=== PATIENT | female | born 1940 | race Caucasian/White ===

== ENCOUNTER 2024-05-30 10:26 | Emergency (ER) | payer MEDICARE, SELFPAY ==
[2024-05-30] VITALS (7 sets, daily range): BP systolic 116–122; BP diastolic 70–78; PULSE 88–100; RESP 19–24; TEMP 36.6; O2SAT 93–94
--- NOTE | ~2024-05-30 | CT_ITS ---
CT head without contrast Indication: Status post fall COMPARISON: 04/26/2024 Technique: Serial scans were obtained through the brain without the administration of contrast. Dose reduction technique was used on this scan by utilizing automated exposure control and iterative recon struction technique. The dose-length product (DLP) was 681.00 mGy-cm. Findings: There is no evidence of intracranial hemorrhage, mass lesion, or acute infarct. The ventri cles and subarachnoid spaces are dilated, consistent with mild to moderate atrophy. There are stable chronic right frontal lobe encephalomalacia with overlying right frontal craniotomy change. Low atten uation regions are seen within the periventricular white matter bilaterally, likely representing nickerson ges from chronic microvascular ischemic disease. There is no evidence of edema, mass effect or midli ne shift. The visualized paranasal sinuses and mastoid air cells are clear. Impression: No intracranial hemorrhage, mass, or acute infarct. 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 Atrophy and chronic white matter changes, as above. Reviewed, dictated and finalized at location . Impression: No intracranial hemorrhage, mass, or acute infarct. 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 Atrophy and chronic white matter changes, as above.
--- NOTE | ~2024-05-30 | XR_ITS ---
Clinical Indication: Pneumonia PA and lateral views of the chest: Comparison: None Findings: The lungs are clear, without evidence of focal consolidation or pleural effusion. Cardiome diastinal silhouette is enlarged. Bones and soft tissues are unremarkable. Impression: Clear lungs. Cardiomegaly. Reviewed, dictated and finalized at location . Impression: Clear lungs. Cardiomegaly.
--- OUTSIDE RECORDS SUMMARY | 2024-05-30 10:29 | XMS_ITS | Encounter Summary ---
Author Organization [facility] Address [address] [place] [address] Care Team Providers Care Restaurant Delivery Driver Name Role Phone Jose Norton MD Primary Care Provider [phone] Encounter Details Date Type Department Care Team (Late st Contact Info) Description 05/13/2024 Abstract [facility], [address] [place], [place] [id number] Robe Mendoza MA Social History Tobacco Use Types Packs/Day Years Used Date Smoking Tobacco: Former Cigarettes Q uit: 1974 Passive Smoke Exposure: Past Smokeless Tobacco: Never Alcohol Use Standard Drinks/Week Comments Yes 16.7 (1 standard drink = 0.6 oz pure alcohol) Comments Unknown Sex and Gender Information Value Date Recorded Sex Assigned at Not on file Legal Sex Female 5:49 PM CDT Gender Identity Not on file Sexual Orientation Not on file documented as of this encounter Plan of Treatment Upcoming Encounters Date Type Department Care Team (Late st Contact Info) Description 08/24/2024 1:00 PM CDT Office Visit [facility] - [address], [address] [place] [phone] Monet Beltran MD [address] [place] [address] 09/03/2024 12:00 PM CDT Office Visit [facility] [address] Sadie Villaesnor MD [facility] [address] [place] [address] documented as of this encounter Procedures Procedure Name Priority Date/Time Associated Diagnosis Comments BASIC METABOLIC PANEL Routine 05/12/2024 documented in this encounter Results * BASIC METABOLIC PANEL (05/12/2024) SODIUM S/P/B 142 POTASSIUM S/P/B 4.2 CO2 26 CHLORIDE S/P/B 105 GLUCOSE 127 mg/dL CALCIUM S/P/B 9.1 BUN 8 CREATININE S/P/B 0.52 0.5 - 1.0 GFR ESTIMATE 93 05/12/2024 us Default History Genericprovider LABORATORY Final Result documented in this encounter Visit Diagnoses Not on filedocumented in this encounter Care Teams Restaurant Delivery Driver Relationship Specialty Start Date End Date Jose Norton MD [address] [place], [place] [id number] PCP - General FAMILY PRACTICE 02/13/24 documented as of this encounter
--- OUTSIDE RECORDS SUMMARY | 2024-05-30 10:29 | XMS_ITS | Data Portability ---
Author Organization [place] [facility], Main Office Address [address] [place] [address] [address] [place] [address] Assessment No assessment recorded. Plan of Treatment Reminders Order Date Submit Date Provider Last Modified By Organization Details Last Modified Time Details Appointments None record ed. Lab None record ed. Referral None record ed. Procedures None record ed. Surgeries None record ed. Imaging None record ed. Medication Orders None record ed. Patient TargetsNo targets recorded. Patient InstructionsNo instructions recorded. Reason for Referral None Reported. Results Created Date Observation Date Name Description Value Unit Range Abnormal Flag Note LastModifiedBy Organization Detail LastModifiedTime 05/30/19 24 06/03/2023 STREP TOCOC CUS, GROUP B CULTU RE streptococcu s, group B culture SEE NOTE STREP TOCOC CUS, GROUP B CULTU RE Micro Numbe r: Test Statu s: Final Speci men Sourc e: Vagin a Speci men Quali ty: Adequ ate Resul t: No group B Strep tococ cus isola lucas Note per CDC guide lines optim al recov elida is achie frederic by swabb ing both the lower vagin a and rectu m (thro ugh the anal sphin cter) . Not Available [facility] [address], [place], [address], 06/03/2023 01:50:29 05/30/1906/03/2023 SURES WAB(R ) ADV BACTE RIAL VAGIN OSIS (BV), TMA sureswab(R) adv bacterial vaginosis (bv), tma NEGATI VE negati ve normal Not Available [facility] [address], [place], [address], 06/03/2023 02:09:02 05/30/19 24 06/03/2023 SURES WAB(R ) ADV [place] DA VAGIN ITIS (CV), TMA alfredo species NOT DETECT ED not detect ed normal Not Available [facility] [address], [place], [address], 06/03/2023 02:09:03 05/30/19 24 06/03/2023 SURES WAB(R ) ADV M[place]ISON DA VAGIN ITIS (CV), TMA alfredo glabrata NOT DETECT ED not detect ed normal Madison da speci es C. albic ans, C. tropi calis , C. parap luís is, and/o r C. dubli niens is can be detec lucas, but not diffe renti ated, in the [place] da spp. resul t. Not Available [facility] [address], [place], [address], 06/03/2023 02:09:03 05/30/19 24 06/03/2023 CULTU RE, URINE , ROUTI NE culture, urine, routine SEE NOTE CULTU RE, URINE , ROUTI NE Micro Numbe r: Test Statu s: Final Speci men Sourc e: Voide d Speci men Quali ty: Adequ ate Resul t: Mixed genit al trisha isola lucas. These super ficia l bacte tonie are not indic ative of a urina ry tract infec tion. No furth er organ ism ident ifica tion is warra nted on this speci men. If clini jennifer indic ated, recol lect clean -catc h, mid-s tream urine and trans lashell immed iatel y to Urine Cultu re Trans port Tube. Not Available [facility] [address], [place], [address], 06/03/2023 02:13:30 05/30/19 24 05/30/2023 LIQUI D-BAS ED pdf [facility]CF Not Available [facility] [address], [place], [address], 06/05/2023 18:34:22 06/17/19 24 06/17/2023 PATHO LOGY pdf [facility] Not Available [facility] [address], [place], [address], 06/22/2023 18:11:11 06/13/19 24 06/05/2023 US, pelvi s, trans abdom inal + trans vagin al No observ ation record ed. BARCODE Not Available 2023 11:32:16 Result Notes None recorded. Procedures Surgical History None recorded. Imaging Results Imaging Date Name Status LastModified by Organization Details LastModified Time 06/05/2023 US, pelvis, transabdominal + transvaginal completed BARCODE Information not available 06/13/2023 11:32:16 Procedure Notes None recorded. Medical Equipment None Reported. Medications Name Sig Start Date Stop Date Status Note LastModified by Organization Details LastModified Time Macrobid 100 mg capsule Take 1 capsule twice a day by oral route for 3 days. 024 active Not Available Not Available Not Avai lable clobetasol 0.05 % topical ointment APPLY TO VULVA AREAS UP TO 2 TIMES A DAY FOR ITCHING AND THEN TAPER TO 1-2 TIMES A WEEK. 024 active Not Available Not Available Not Avai lable Vitals None Recorded Social History None recorded. Functional Status None recorded. Mental Status None recorded. Family History Nothing Reported. Medical History No medical history recorded. Gynecological HistoryNo gynecological history recorded. Obstetrics History GPAL:G 0 P 0 0 0 0 Past Encounters Encounter ID Performer Location Encounter Start Date Encounter Closed Date Diagnosis/Indication Diagnosis SNOMED-CT Code Diagnosis ICD10 Code Diagnosis Note [id number] Main [address] [facility] [employer] [address] [place] [address] 05/30/2023 14:31:48 07/09/2023 10:21:30 [id number] [facility] [facility] [address] [place] [address] 06/17/2023 09:59:46 06/17/2023 12:49:35 [id number] Main Office [address] [place], [place] [address] [place] [address] 07/15/2023 13:36:49 07/15/2023 14:44:17 Health Concerns Section Related Observation LastModified by Organization Detai ls LastModified Time None Recorded Concern Status LastModified by Organization Details LastModified Time None Recorded Advance Directives Directive None Recorded Payers Encounter Date Sequence Insurance Name Policy Number Policy Schilling Covered Member ID Schilling Member ID Guarantor Name 05/30/2023 2 [employer] OPTIONS (MEDICARE SUPPLEMENT) Silvana Villanueva Payam [id number] Silvana Payam 05/30/2023 1 [place] Silvana F Payam [id number] Silvana Payam 06/17/2023 2 [employer] OPTIONS (MEDICARE SUPPLEMENT) Silvana Villanueva Payam [id number] Silvana Payam 06/17/2023 1 [place] Silvana F Payam [id number] Silvana Payam 07/15/2023 2 [employer] OPTIONS (MEDICARE SUPPLEMENT) Silvana Villanueva Payam [id number] Silvana Payam 07/15/2023 1 [place] Silvana F Payam [id number] Silvana Payam OBGyn Episode No OBEpisode recorded.
--- OUTSIDE RECORDS SUMMARY | 2024-05-30 10:29 | XMS_ITS | Patient Health Record ---
Author Organization [facility] Address [address] [facility] [place] [address] Care Team Providers Care Automotive Engineering Technician Name Role Phone PetronaAdriano Unavailable [phone] doctor, Dr madrigal Unavailable Unavailable Reason For Referral No Information Medications Medication SIG (Take, Route, Frequency, Duration) Notes Start Date End Date Status losartan 25 mg 1 tab(s) orally once a day for 30 day(s) Active simvastatin 20 mg 1 tab(s) orally once a day (at bedtime) for 30 day(s) Active PARoxetine 30 mg 1 tab(s) orally once a day for 30 day(s) Active Claritin 10 mg 1 tab(s) orally once a day Active potassium 90mg 1 qd Activ e levothyroxine 25 mcg (0.025 mg) 1 tab(s) orally once a day for 30 day(s) Active esomeprazole 40 mg 1 cap(s) orally once a day for 30 day(s) Active furosemide 20 mg 1 tab(s) orally once a day for 30 day(s) Active lamoTRIgine 100 mg 1 tab(s) orally 2 ti mes a day for 30 day(s) Active Vit D 500iu oral BID for 30 days Active primidone 50 mg 1 tab(s) orally 3 ti mes a day for 30 day(s) Active Social History Tobacco Use: Social History Observation Description Date Details (start date - stop date) Never Smoker NA - NA Smoking Question Answer Notes Are you a: never smoker Alcohol Question Answer Notes Did you have a drink contain ing alcohol in the past year? Yes How often did you have six o r more drinks on one occasion in the past year? Daily or almost daily (4 points) How many drinks did you have on a typical day when you were drinking in the past year? 3 or 4 (1 point) How often did you have a dri nk containing alcohol in the past year? Four or more times a week (4 points) Points 9 Interpretation Positive Problems Problem Type SNOMED Code ICD Code Onset Dates Problem Status W/U Status Risk Notes Problem Stiffness of joint of left foot (finding) (604133813126307) Stiffness of left foot, not elsewhere classified (M25.675) Active confirmed Problem Instability of joint of left foot (finding) (22635460968880968) Other instability, left foot (M25.375) Active confirmed Problem Enthesopathy of foot region (076219795) Other enthesopathy of left foot (M77.52) Active confirmed Problem Metatarsalgia of left foot (673348653325351) Metatarsalgia, left foot (M77.42) Active confirmed Problem Atherosclerosis of samish arteries of the extremities (839853002067373) Unspecified atherosclerosis of samish arteries of extremities, bilateral legs (I70.203) Active confirmed Problem 1340961765713454 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, 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) Active confirmed Problem Stiffness of joint of right foot (finding) (165418202479465) Stiffness of right foot, not elsewhere classified (M25.674) Active confirmed Problem Peripheral venous insufficiency (16235343) Venous insufficiency (chronic) (peripheral) (I87.2) Active confirmed Problem Pain in limb (80766946) Pain of left foot (M79.672) Active confirmed Problem Arthralgia of the ankle and/or foot (403903045) Pain in joint, ankle and foot, left (M25.572) Active confirmed Plan Of Treatment Pending Test Test Name Order Date X-ray: Foot, left 3v OBTAINED TODAY 01/22 X-ray: Foot, right 3v OBTAINED TODAY 12/2019 Ultrasound guided injection left 020 Biopsy of Skin 02/01/2020 DRAIN/INJECT, JOINT/BURSA W/O US 020 Ultrasound:DX Capsulitis/Joint Pain Lt A nkle 02/01/2020 Ultrasound:DX Capsulitis/Joint Pain Lt F oot 02/01/2020 VASCULAR ANALYSIS 02/22/2020 Insurance Providers Payer Name Payer Address Payer Phone Subscriber Number Group Number Insured Name Patient Relationship to Insured Coverage Start Date Coverage End Date Medicare Part B [address] [place] [phone] [id number] Silvana Hare Self - patient is the insured 8 AARP Supplement [address] [facility] [place] [address] [id number] Silvana Hare Self - patient is the insured Medical (General) History Medical History History ICD Code Alzheimers disease No diabetic No Heart disease No Heart murmur No Mitral valve prolapse Yes Hypertension Yes Peripheral vascular disease No Stroke No Raynauds syndrome No Menieres disease No Dialysis No Phlebitis No Venous insufficiency No Respiratory disease No Parkinsons disease No Hepatitis No Fibromyalgia No RSD No Crohns Disease No Hiatal hernia No Colitis No Cirrhosis No thyroid problems No Liver Disease No Carpal tunnel No Neuropathy Yes Cancer No Pancreatitis No Multiple sclerosis No Hypercholestrolemia No Osteomyelitis No Sciatica No Arthritis Yes fractures No hip replacement No Knee Replacement Yes Surgical History Surgery Date(Month/Year) 2 bunion sx 2009 sinus surgery 2015 brain 2018 various elective sx [id number] Hospitalization History Reason Date(Month/Year) see above
--- OUTSIDE RECORDS SUMMARY | 2024-05-30 10:29 | XMS_ITS | Data Portability ---
Author Organization [place] [facility], [facility] - OP Address [address] [place] [address] Care Team Providers Care Cuff Setter Name Role Phone DEBI MATOS Primary Care Provider Assessment No assessment recorded. Plan of Treatment Reminders Order Date Submit Date Provider Last Modified By Organization Details Last Modified Time Details Appointments None recorded . Lab None recorded . Referral physical therapis t referral - Left Plantar fasciiti s/ gait training / balance, eval and treat please. To begin 2 weeks after june 24 due to surgery 2022 023 [email or web address] In-House Results, For Internal Use Only, Do Not Delete/merge, [id number] 13:50:00 home health referral - [facility] referral for home PTDx: Abnormal GAIT, Right knee arthropl asty, Left foot DJD, pain in limbGAIT training , safety/a ssessmen t, DME teaching , educatio n.Start 2 weeks 3x/week and will reassess at follow-u p visit in 2 weeks.SO C: 10/05 or Emir knowles, LEONORA AACFASAO [facility] ip-Train ed Foot and Ankle SurgeonA O/AAFAO Core FacultyO ffice: [phone] le: [phone]-charleen il: [email or web address] 2014 015 louie [facility], [address], [address], [place], [address], 5 08:43:53 Procedures None recorded . Surgeries None recorded . Imaging XR, foot, 3 or more view 03/20/ 2023 03/20/2 023 [email or web address] In-House Results, For Internal Use Only, Do Not Delete/merge, [id number] 3 12:05:27 x-ray, foot, 3 views 2014 015 [email or web address] In-House Results, For Internal Use Only, Do Not Delete/merge, [id number] 5 18:48:02 Medication Orders None recorded . Patient TargetsNo targets recorded. Patient Instructions Encounter Date Encounter Id Patient Instructions Last Modified By Organization Details Last Modified Time 10/04/2014 [id number] Corticosteroid injection. Discussed operative option of arthrodesis to the great toe joint. F/U with me in 2 weeks for re-evaluation. [facility] referral for balance issues. [email or web address] Not available 10/04/2014 18:45:02 06/10/2022 [id number] heel pain instructions Not available 06/10/2022 17:26:14 heel pain: care instructions Not available 06/10/2022 17:26:14 hammertoe, claw toe, mallet toe handout Not available 06/10/2022 17:26:14 -{{A 1:1:1* An 8 mg}} injection was administered into the {{RT LT* B/L}} PF, which was tolerated well by the patient. -A PT referral was sent for the patient -Dispensed {{a RT a LT* B/L}} night splint. -Addressed all of the patient's questions and concerns. Not available 06/10/2022 21:01:50 07/08/2022 [id number] -Dressed the lesion with betadine and a band-aid. -Advised to continue to WBAT in supportive shoes, attend PT, complete the HEP, and wear the night splint. -Recommended urea cream for keratoderma prophylaxis. -Addressed all of the patient's questions and concerns. Not available 07/08/2022 15:35:21 Reason for Referral Home Health Referral for Abn ormal gait [facility] referral for home PTDx: Abnormal GAIT, Right knee arthroplasty, Left foot DJD, pain in limbGAIT training, safety/assessment, DME teaching, education.Start 2 weeks 3x/week and will reassess at follow-up visit in 2 weeks.SOC: 10/05 or Emir galindo DPM AACFASAO Fellowship-Trained Foot and Ankle SurgeonGARRETT/HOOD Core FacultyOffice: [phone]: [phone]-mail: Referring Physician: Emir Curry Podiatry, Encounter Date: 10/04/2014 Physical Therapist Referral for Plantar fasciitis Left Plantar fasciitis/ gait training/ balance, eval and treat please. To begin 2 weeks after june 24 due to surgery Referring Physician: Narendra Hannon Podiatry, Encounter Date: 06/10/2022 Results Created Date Observation Date Name Description Value Unit Range Abnormal Flag Note LastModifiedBy Organization Detail LastModifiedTime 06/11/19 23 XR, foot, 3 or more view No observ ation record ed. In-House Results For Internal Use Only, Do Not Delete/merge, [id number] 06/10/2022 21:02:54 Result Notes None recorded. Problems Name Problem SNOMED Code Status Onset Date Resolution Date Notes Provider Name and Address Organization Details Recorded Time Tremor 79745815 Active 2022 Latesha Workman [facility] [place] 3 17:02:46 Acquired hallux rigidus 2249260 Active Emir Curry, DPM [address], [address] , [facility] 5 18:48:02 Sesamoiditis 44107589 Active Emir Curry DPDeonte [address], [address] , [facility] 5 18:48:02 Abnormal gait 78955549 Active Emir Curry, DPM [address], [address] , [facility] 5 18:48:02 Problem Notes None recorded. Procedures Surgical History Date Name Laterality Status Provider Name and Address Organization Details Recorded Time 07/09/19 23 Keratoma Debridement Size Lesion < 0.5CM completed Narendra Hannon, LEONORA [address] [place] [address], [phone], [facility] 07/08/2022 13:55:47 06/11/19 23 Injection Fascia/Tendon/l igament completed Narendra Hannon DPM [address] [place] [address], [phone], [facility] [place] 06/10/2022 17:20:10 06/11/19 23 Night Splint completed Narendra Hannon DPDeonte [address] [place] [address], [phone], [facility] [place] 06/10/2022 17:21:21 06/11/19 23 Keratoma Debridement Size Lesion < 0.5CM completed Narendra Hannon DPM [address] [place] [address], [phone], [facility] [place] 06/10/2022 17:20:51 10/05/19 15 Injection Small Joint/Bursae completed Emir Curry DPM [address] [place] [address], [phone], [facility] [place] 10/04/2014 18:45:02 Knee Surgery completed Mykel Swain [facility] [place] 10/04/2014 15:15:04 excision of bunion completed Latesha Workman [facility] [place] 06/10/2022 16:53:36 Imaging Results Imaging Date Name Status LastModified by Organiz ation Details LastModified Time 06/10/2022 XR, foot, 3 or more view completed [facility] In-House Results For Internal Use Only, Do Not Delete/merge, [id number] 06/10/2022 21:02:54 Procedure Notes None recorded. Medical Equipment None Reported. Allergies No known drug allergies Medications Name Sig Start Date Stop Date Status Note LastModified by Organization Details LastModified Time losartan 50 mg tablet TAKE 1 TABLET BY MOUTH EVERY DAY active Not Available Not Available No t Available celecoxib 200 mg capsule active Not Available Not Available Not Available fluoxetine 40 mg capsule TAKE 1 CAPSULE BY MOUTH EVERY DAY active Not Available Not Available No t Available amoxicillin 500 mg capsule active Not Available Not Available Not Available terconazole 0.4 % vaginal cream INSERT ONE APPLICATO RFUL VAGINALLY ONE TIME DAILY AT BEDTIME FOR 7 DAYS 07/08 completed Not Available Not Available Not Available primidone 50 mg tablet TAKE 3 TABLETS BY MOUTH EVERY MORNING active Not Available Not Available No t Available carvedilol 6.25 mg tablet TAKE ONE TABLET BY MOUTH TWICE A DAY active Not Available Not Available No t Available azithromyci n 250 mg tablet TAKE TWO TABLETS BY MOUTH ON DAY 1, THEN TAKE ONE TABLET ONE TIME DAILY ON DAYS 2-5 07/08 completed Not Available Not Available Not Available fluconazole 150 mg tablet TAKE 1 TABLET BY MOUTH EVERY 72 HOURS X 3 DOSES. FOLLOW BY 1 TABLET BY MOUTH ONCE A WEEK active Not Available Not Available No t Available benzonatate 200 mg capsule TAKE ONE CAPSULE BY MOUTH THREE TIMES A DAY NEEDED active Not Available Not Available No t Available metronidazo le 500 mg tablet TAKE ONE TABLET BY MOUTH TWICE A DAY FOR 3 DAYS 07/08 completed Not Available Not Available Not Available simvastatin 40 mg tablet active Not Available Not Available Not Available levothyroxi ne 25 mcg tablet TAKE ONE TABLET BY MOUTH ONE TIME DAILY IN THE MORNING ON AN EMPTY STOMACH active Not Available Not Available No t Available lamotrigine 25 mg tablet TAKE THREE TABLETS BY MOUTH TWICE A DAY active Not Available Not Available No t Available hydromorpho ne 2 mg tablet active Not Available Not Available Not Available primidone 250 mg tablet TAKE ONE TABLET BY MOUTH AT BEDTIME active Not Available Not Available No t Available paroxetine 30 mg tablet TAKE ONE TABLET BY MOUTH ONE TIME DAILY active Not Available Not Available No t Available pantoprazol e 40 mg tablet,héctor yed release TAKE ONE TABLET BY MOUTH ONE TIME DAILY active Not Available Not Available No t Available dexamethaso ne 4 mg tablet TAKE TWO TABLETS BY MOUTH ONE TIME DAILY FOR 4 DAYS active Not Available Not Available No t Available warfarin 5 mg tablet active Not Available Not Available No t Available losartan 25 mg tablet TAKE ONE TABLET BY MOUTH EVERY MORNING. TAKING ADDITIONA LLY TO THE 50 MG IN THE AFTERNOON active Not Available Not Available No t Available triamcinolo ne acetonide 0.025 % topical ointment APPLY TO AFECTED AREA ON FACE TWICE DAILY X 5-7 DAYS. DO NOT USE LONGER THAN A WEEK. 07/08 completed Not Available Not Available Not Available mupirocin 2 % topical ointment active Not Available Not Available Not Available nystatin 100,000 unit/gram topical powder APPLY TO AFFECTED AREA(S) TOPICALLY TWO TIMES A DAY active Not Available Not Available No t Available fluocinonid e 0.05 % topical solution APPLY TO SCALP TWICE A DAY X 2 WEEKS, NEEDED FLARE active Not Available Not Available No t Available levofloxaci n 750 mg tablet active Not Available Not Available Not Available methylpredn isolone 4 mg tablets in a dose pack FOLLOW THE DIRECTION S LISTED ON THE LABEL OR PROVIDED BY YOUR PHYSICIAN OR PHARMACIS T active Not Available Not Available No t Available albuterol sulfate HFA 90 mcg/actuati on aerosol inhaler INHALE TWO PUFFS BY MOUTH EVERY 4 HOURS NEEDED active Not Available Not Available No t Available ipratropium bromide 42 mcg (0.06 %) nasal spray 2 PUFFS EACH NOSTRIL TWICE A DAY active Not Available Not Available No t Available fluticasone propionate 50 mcg/actuati on nasal spray,suspe nsion USE ONE SPRAY IN THE AFFECTED NOSTRIL TWICE A DAY active Not Available Not Available No t Available lamotrigine 100 mg tablet TAKE ONE TABLET BY MOUTH ONE TIME DAILY active Not Available Not Available No t Available Sudafed 12 Hour 120 mg tablet,exte nded release TAKE ONE TABLET BY MOUTH EVERY 12 HOURS FOR 7 DAYS 07/08 completed Not Available Not Available Not Available amoxicillin 875 mg-potassiu m clavulanate 125 mg tablet TAKE ONE TABLET BY MOUTH TWICE A DAY active Not Available Not Available No t Available Ciprodex 0.3 %-0.1 % ear drops,suspe nsion active Not Available Not Available Not Available rosuvastati n 20 mg tablet TAKE ONE TABLET BY MOUTH ONE TIME DAILY active Not Available Not Available No t Available Pexeva 40 mg tablet active Not Available Not Available No t Available Pexeva 30 mg tablet active Not Available Not Available No t Available hydrochloro thiazide 12.5 mg tablet active Not Available Not Available Not Available OxyContin 10 mg tablet,otis h resistant,e xtended release active Not Available Not Available Not Available Vitals Date Recorded Heart rate Body temperature Systolic blood pressure Diastolic blood pressure Provider Name and Address Organization Details Last Updated DateTime 10/04/2014 74 /min 96.5 [degF] 142 mm[Hg] 76 mm[Hg] Lorie Swain [place] [facility] 10/04/2014 15:15:04 Date Recorded Body temperature Provider Name a nd Address Organization Details Last Updated DateTime 06/10/2022 97.6 [degF] Latesha Workman [facility] 06/10/2022 16:48:04 Date Recorded Body height Body mass index (BMI) Body weight Provider Name and Address Organization Details Last Updated DateTime 07/08/2022 162.56 cm 39.5 kg/m2 006888.25 g Teresa Mack [facility] 07/08/2022 13:40:42 Social History Question Answer Notes LastModified by Organizat ion Details LastModified Time Tobacco Smoking Status Never Smoker Mykel delaney [facility] 10/04/2014 15:15:04 What Is Your Level Of Alcohol Consumption? Occasional sokubo Information not available 10/04/2014 Are You Currently Sexually Active With Anyone Who Has Traveled (within The Last 12 Weeks) To A Zika-affected Area? No Information not available 07/08/2022 What Is Your Level Of Caffeine Consumption? Occasional Information not available 07/08/2022 In The 14 Days Before Symptom Onset, Have You Had Close Contact With A Laboratory-confirm ed COVID-19 While That Case Was Ill? No Information n ot available 07/08/2022 In The 14 Days Before Symptom Onset, Have You Had Close Contact With A Person Who Is Under Investigation For COVID-19 While That Person Was Ill? No Information not available 07/08/2022 Have You Been To An Area Known To Be High Risk For COVID-19? No Information not available 07/08/2022 Have You Processed Blood Or Body Fluids From An Ebola Virus Disease Patient Without Appropriate PPE? No Information not available 07/08/2022 Do You Reside In Or Have You Traveled To An Area Where Ebola Virus Transmission Is Active? No Information not available 07/08/2022 Have You Recently Or Are You Planning To Travel To An Area With Zika Virus? No Information not available 07/08/2022 What Was The Date Of Your Most Recent Tobacco Screening? 07/08/2022 Information not available 07/08/2022 Have You Ever Been Counseled For Unhealthy Alcohol Use? No Information not available 07/08/2022 Do You Use Any Illicit Or Recreational Drugs? No Information not available 07/08/2022 Has Tobacco Cessation Counseling Been Provided? No Information not available 07/08/2022 Have You Recently Traveled Abroad? No Information not available 07/08/2022 Do You Or Have You Ever Used Any Other Forms Of Tobacco Or Nicotine? No Information not available 07/08/2022 Sex: Unknown Functional Status None recorded. Mental Status None recorded. Family History Relationship Description Onset Age of this Age Resolved Age Notes LastModified by Organization Details LastModified Time Unspecified Relation Hypertensive disorder [email or web address] Not available 2014 18:00:49 Unspecified Relation Hypocholeste rolemia [email or web address] Not available 2014 18:00:49 Medical History Condition Response Coronary Artery Disease N Dyslipidemia N Gout N Hernia Y Artificial Joints N Thyroid Problems N Blood Clots Y Lung Disease N Pacemaker N Anemia N Edema N Back Pain Y Headaches/Migraines N Deep Vein Thrombosis N Varicose Veins N Diabetes N Difficulty swallowing N Bleeding Disorder N Arthritis N Seizures/Epilepsy N Tuberculosis N AIDS/HIV N Tom Bite N Cancer N Stroke N Asthma N Leg or Foot Ulcers N Raynaud's Disease N Substance Abuse N Psoriasis N Peripheral Vascular Disease N Polio N Hepatitis N Liver Disease N Heart Disease Y Rheumatoid Arthritis N Pulmonary Embolism N Dialysis N Fibromyalgia N Foot Deformity N Hypertension Y Osteoporosis N Kidney Disease N Gynecological HistoryNo gynecological history recorded. Obstetrics History GPAL:G 0 P 0 0 0 0 Past Encounters Encounter ID Performer Location Encounter Start Date Encounter Closed Date Diagnosis/Indication Diagnosis SNOMED-CT Code Diagnosis ICD10 Code Diagnosis Note [id number] Mykel Swain [facility] [address] [facility] [address] [place] [address] 10/04/2014 14:06:36 10/04/2014 15:34:19 Acquired hallux rigidus 9537541 Sesamoiditis 84283765 Abnormal gait 85545279 [id number] Narendra Hannon DPM [place] [address] [facility] [address] [address] [facility] [address] 06/10/2022 16:18:34 06/10/2022 17:34:47 Plantar fasciitis 101803462 M72.2 {{Improvin g worsenin g* same}} , {{Left* Ri ght Bilate ral}} Equinus co ntracture of the ankle 795891622 M24.573 Hammer toe 933132382 M20 .41 M20.42 Hammertoe deformitie s of {{Right Le ft Bilater al*}} Callosity 973512494 L84 Dry skin 17794468 L85.3 Squamous c ell carcinoma of skin 726025515 C44.92 Patient undergoing excision of lesion June 24 [id number] Narendra Hannon DPM [place] [address] [place] [address] [place] [address] 6 07/08/2022 13:37:08 07/08/2022 14:01:07 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 B/L medial hallux and LT submet 1 Plantar fasciitis 546986 003 M72.2 {{Improvin g* worseni ng same}} , {{Left* Ri ght Bilate ral}} Equinus co ntracture of the ankle 874844029 M24.573 Hammer toe 973915776 M20 .41 M20.42 Hammertoe deformitie s of {{Right Le ft Bilater al*}} Callosity 080590713 L84 Dry skin 51970985 L85.3 Squamous c ell carcinoma of skin 133390783 C44.92 Patient undergoing excision of lesion June 24 Health Concerns Section Related Observation LastModified by Organization Detai ls LastModified Time None Recorded Concern Status LastModified by Organization Details LastModified Time None Recorded Advance Directives Directive None Recorded Payers Encounter Date Sequence Insurance Name Policy Number Policy Schilling Covered Member ID Schilling Member ID Guarantor Name 10/04/2014 1 [place] Silvana Hare [id number] Silvana Hare 10/04/2014 2 [facility] CLAIM[facility] - PLAN KT (MEDICARE SUPPLEMENT) Silvana Hare [id number] Silvana Hare 06/10/2022 1 [place] Silvana Hare [id number] Silvana Hare 06/10/2022 2 [facility] CLAIMS - PLAN KT (MEDICARE SUPPLEMENT) Silvana [place] [id number] Silvana Hare 07/08/2022 1 [place] Silvana Hare [id number] Silvana Hare 07/08/2022 2 [facility] CLAIMS - PLAN KT (MEDICARE SUPPLEMENT) Silvana [place]ok [id number] Silvana Hare Notes Date Note Type Note Provider Name and Address Organization Details Recorded Time 06/10/2022 text/html Heel PainReporte d bypatient.Quality:t hrobbing; dull; deep; improving Severity:mild Timing:cannot identify Context:cannot identify Alleviating Factors:rest; ice; cessation of activity; stretching and treatment here Associated Symptoms:warmth;swe lling Previous Surgery:none Prior Imaging:none Previous Injections:helped significantly Previous Treatment:tashin g; helped significantly; therapy helped Work Related:no Working:noNotes:Maryam crystal is a 81 year old female patient who presents today for Possible Plantar Fasciitis of Lt foot. The heel pain just started 2 weeks ago. Pain is achy and only hurts when standing or walking. She also states serious balance problems for 2 years since B/L knee replacement. She also has callus of Rt big toe. Pain: 1-08/31. Narendra Hannon, LEONORA [address] [place] [address], [place], [address], [facility] 06/10/2022 21:03:19 07/08/2022 text/html Podiatry FootReported bypatient.Notes:Maryam crystal is a 81 year old female patient who presents today for LT PF F/U and RT hallux callus F/U. Patient has not been attending PT due to puncture wound on her RT ankle. Patient would like a different PT referral to attend her own PT sessions at a location closer to her house. Patient has not been wearing the night splint as directed it is uncomfortable and she is unable to take off the splint in the mornings. No farther questions or concerns. Denies any F,C,N,V. Patient is not comfortable with injections. Callus on RT hallux is still present after shaved down at last visit. Patient has not seen improvements. Pain: 07/01. Narendra Hannon, LEONORA [address], [address], [facility] 07/08/2022 15:36:45 OBGyn Episode No OBEpisode recorded.
--- OUTSIDE RECORDS SUMMARY | 2024-05-30 10:29 | XMS_ITS | Continuity of Care Document ---
Author Organization [facility] Address [address] [place] [address] Phone Care Team Providers Care Inspector Repairer Name Role Phone Ildefonso Peralta MD Unavailable Unavailable Allergies, Adverse Reactions, Alerts Substance Reaction Status Criticality No Known Allergies Active No Inform ation Medications Medication Instructions Dosage Effective Dates (start - stop) Status Comments Crestor 40 mg tablet take 1 tablet by or al route every day 40 MG - Active losartan 50 mg tablet take 1 tablet by oral route every day 50 MG - Active Lamictal 100 mg tablet take 1 tablet by oral route 2 times every day 100 MG - Active aspirin 81 mg tablet,delayed release take 1 tablet by oral route every day 81 MG - Active primidone 125 mg tablet take 1 tablet by oral route every day at bedtime for 3 days , then twice daily for 3 days, then three times daily for 3 days 125 MG - Active Paxil 30 mg tablet take 1 tablet by ora l route every day 30 MG - Active Coreg 6.25 mg tablet take 1 Tablet by or al route 2 times every day with food 6.25 MG - Active Synthroid 25 mcg tablet take 1 tablet by oral route every day 25 MCG - Active Procedures Procedure Date OFFICE/OUTPATIENT VISIT, [facility] Advance Directives Directive Yes / No Effective Date File Name No Information Encounters Encounter Description Practice Location Reason(s) For Visit Diagnoses Date Provider Providers Copied on Encounter [facility], [address] [place], [id number], [place] tel:[phone] [facility] No Information 5 Fabian Fregoso. [address], [place], [place], [id number] , [place]. tel:[phone] [facility], [address] [place], [id number], [place] tel:[phone] [facility] No Information 5 Fabian Ildefonso. [address], [place], [place], [id number] , [place]. [phone] OFFICE/OUTPA TIENT VISIT, [facility], [address], [place], [place], [id number], [place] tel:[phone] [facility] thyroid1 (chief complaint) anxiety1 (chief complaint) HTN (chief complaint) seizure1 (chief complaint) HLP (chief complaint) tremor1 (chief complaint) HypothyroidismTremo rEssential (primary) hypertensionMixed hyperlipidemiaOther epilepsyGeneralized Anxiety DisorderPolyp of colonOsteopenia 5 Fabian Fregoso. [address], [place], [place], [id number] , [place]. [phone] Family History Family Member Type Diagnosis Age At Onset Father Problem of 90 old age Sister Problem essential tremor Mother Problem of 80s ?? CVA Payers Payer name Insurance type Covered libertarian ID Authoriza tion(s) Medicare Of [place] WPS MB [id number] [employer] Secondary CI [id number] Social History Type Description Quantity Date Captured Comments Sex Female Smoking Status No Information Chief Complaint And Reason For Visit No Information Plan Of Treatment Date Type Action Status Referral Ordered: FLAKITO VAUGHN -[facility] : Psychiatry & Neurology : Neurology (related to Other epilepsy) ordered Referral Referred To: FLAKITO VAUGHN [address] [place], [place], [phone] Ordered: Referrals: [facility]opathic Physicians : Psychiatry & Neurology : Neurology. FLAKITO VAUGHN. Evaluate and treat ordered History Of Present Illness Encounter Date Complaint History Of Prese nt Illness thyroid1 Pt has borderlin e hypothyroidism Pt takes synthroid daily for 5 years Pt denies any dysphagia or neck pain anxiety1 Pt has chronic a nxiety and depression Pt takes paxil and doing ok Pt denies any suicidal or homicidal thought Pt denies any crying spells HTN Pt has HTN Pt ta kes losartan and coreg and bp is ok. Pt does not have any heart disease seizure1 Pt has history o f meningioma s/p removal and she had seizure x 2 about 5 years ago Pt is on lamictal and she had not had seizure since 5 years ago. SHe had normal MRI two years ago. HLP Pt has HLP Pt ta elsas crestor. Pt denies any myalgia. tremor1 Pt has chronic e ssential tremor. pt was seeing neurology in [place]. She just moved here .Pt needs referral to neurology Pt is on primidone for the past several years but has not helped much. Her neurologist in [place] ruled her out of parkinson disease. Instructions Date Instruction Additional Infor jacob No Information Assessments Type Assessment Date No Information
--- OUTSIDE RECORDS SUMMARY | 2024-05-30 10:30 | XMS_ITS | Patient Health Record ---
Author Organization [facility] Address [address] [place] [id number] Support Name Relationship Address Phone JAYJAY JACKSON Guarantor Unknown [phone] ALLERGIES No Known Allergies REASON FOR REFERRAL No Information MEDICATIONS Medication SIG (Take, Route, Frequency, Duration) Notes Start Date End Date Status Losartan Potassium 25 MG 1 tablet Orally Once a day for 90 days Active PARoxetine HCl 30 MG 1 tablet in the mor chuck Orally Once a day for 90 days Active Xanax 0.5 MG 1 tablet every night Orally Once a day for 20 days 07/22/2020 Active Levothyroxine Sodium 25 MCG 1 TABLET IN THE MORNING ON AN EMPTY STOMACH ONCE A DAY ORALLY 90 DAYS for 90 Active Esomeprazole Magnesium 40 MG 1 capsule O rally Once a day for 90 days Active Furosemide 20 MG 1 tablet Orally 4 X weekly Active Simvastatin 20 MG 1 tablet in the even ing Orally Once a day Active Primidone 50 MG as directed Orally 1 in am 5 in PM Active lamoTRIgine 100 MG 1 tablet Orally Once a day Active Carvedilol 3.125 MG 1 tablet with food Orally daily Active PROBLEMS Problem Type ICD Code Onset Dates Problem Status W/U Status Risk SNOMED Code Notes Problem Hypothyroidism, unspecified (E03.9) Active confirmed Hypothyr oidism (93865168) Problem Essential tremor (G25.0) Active confirmed 545335905 Problem Essential hypertension (I10) Active confirmed 37429875 Problem Gastroesophageal reflux disease without esophagitis (K21.9) Active confirmed 281954184 Problem Depression, unspecified depression type (F32.9) Active confirmed 42301105 Problem Psychophysiological insomnia (F51.04) Active confirmed 996524208 Problem Hyperlipemia, mixed (E78.2) Active confirmed Mixed hyperlipidemia (075080073) PLAN OF TREATMENT Pending Test Test Name Order Date Chest X-ray PA and lateral 06/06/2020 Urinalysis, Complete 06/06/2020 Urine Culture and Sensitivity 06/06/2020 Insurance Providers Payer Name Payer Address Payer Phone Subscriber Number Group Number Insured Name Patient Relationship to Insured Coverage Start Date Coverage End Date [employer] [place] [employer] [address] [address] [place] [phone] [id number] JAYJAY JACKSON Self - patient is the insured [facility] Medicare Supplement [address] JYOTI RAY FENG [phone] [id number] JAYJAY JACKSON Self - patient is the insured MEDICAL (GENERAL) HISTORY Medical History History ICD Code Hypertension Hyperlipidemia Hypothyroid Depression Surgical History Surgery Date(Month/Year) menningioma
--- OUTSIDE RECORDS SUMMARY | 2024-05-30 10:30 | XMS_ITS | Data Portability ---
Author Organization [facility] Address [address] [place] [id number] Care Team Providers Care Gaming Cage Worker Name Role Phone DEBI MATOS Primary Care Provider [phone] DEBI MATOS Referring Provider [phone] DEBI MATOS Primary Care Provider [phone] Assessment No assessment recorded. Plan of Treatment Reminders Order Date Submit Date Provider Last Modified By Organization Details Last Modified Time Details Appointments None recorded. Lab None recorded. Referral pulmonologi st referral 2023 024 ANTHONY Greco MD, [address], [address], [place], [address], 4 15:10:39 Procedures None recorded. Surgeries None recorded. Imaging electrocard iogram 2023 024 In-House Results, For Internal Use Only, Do Not Delete/merge, [id number] 10:41:32 PET, heart 2023 024 galye Wallace MD ([facility]), [address], [address], [place], [address], 4 10:09:08 electrocard iogram 2023 024 In-House Results, For Internal Use Only, Do Not Delete/merge, [id number] 4 20:40:15 US, echocardiog florian, transthorac ic, complete, w/ color flow 2022 023 [facility], [address] [place] [address] , [place], [address], 09:37:29 event monitor - 48 hour holter 2022 023 [facility], RAY, [address], [address], [place], [address], 09:37:11 US, duplex, carotid artery 2022 023 [facility], [address] [place] [address] , [place], [address], 09:36:51 Medication Orders losartan 25 mg tablet 2023 024 ANTHONY [id number] [place] [facility], [address], [place], [address], 10:41:34 Patient TargetsNo targets recorded. Patient Instructions Encounter Date Encounter Id Patient Instructions Last Modified By Organization Details Last Modified Time 08/28/2022 [id number] When You Want to Lose Weight: Care Instructions Not available 08/28/2022 13:37:59 dehydration: car e instructions Not available 08/28/2022 13:38:00 10/30/2022 [id number] When You Want to Lose Weight: Care Instructions Not available 10/30/2022 13:34:47 dehydration: car e instructions Not available 10/30/2022 13:34:47 06/12/2023 [id number] fainting: care instructions Not available 06/12/2023 20:40:15 When You Want to Lose Weight: Care Instructions Not available 06/12/2023 20:40:15 dehydration: car e instructions Not available 06/12/2023 20:40:15 07/28/2023 [id number] When You Want to Lose Weight: Care Instructions Not available 07/28/2023 10:41:32 high cholesterol : care instructions Not available 07/28/2023 10:41:32 fainting: care instructions Not available 07/28/2023 10:41:32 dehydration: car e instructions Not available 07/28/2023 10:41:32 10/30/2023 [id number] When You Want to Lose Weight: Care Instructions jt Not available 10/30/2023 13:24:03 high cholesterol : care instructions jt Not available 10/30/2023 13:24:03 Reason for Referral Perioperative Nurse Referral for O bstructive sleep apnea of adult Referring Physician: Charly Wallace, Cardiology, Encounter Date: 07/28/2023 Results Created Date Observation Date Name Description Value Unit Range Abnormal Flag Note LastModifiedBy Organization Detail LastModifiedTime 09/12/1909/03/2022 event monit or No observ ation record ed. [facility], [address], [place], [address], 09/15/2022 14:23:32 10/24/19 23 08/16/2022 XR, chest , 1 view No observ ation record ed. Not Available 2022 15:49:28 10/24/19 23 08/16/2022 CT, head, w/o contr ast No observ ation record ed. [email or web address] Not Available 2022 15:50:38 10/29/19 23 10/28/2022 US, echoc ardio gram, trans thora cic, compl ete, w/ color flow No observ ation record ed. Radiology [address] Sonya Pendleton, [place], [address], 10/29/2022 07:53:37 10/30/1910/28/2022 US, doni araujo id arter y No observ ation record ed. Radiology [address] Sonya Pendleton, [place], [address], 11/01/2022 12:15:47 06/11/19 24 04/29/2023 US, echoc ardio gram No observ ation record ed. Not Available 2023 09:25:53 06/11/19 XR, chest , 1 view No observ ation record ed. Not Available 2023 09:26:50 06/11/19 24 04/28/2023 MRI, brain , w/o contr ast No observ ation record ed. Not Available 2023 09:29:27 06/11/19 24 04/28/2023 CT, head, w/o contr ast No observ ation record ed. Not Available 2023 09:30:30 06/12/19 elect rocar diogr am No observ ation record ed. In-House Results For Internal Use Only, Do Not Delete/merge, [id number] 06/12/2023 12:19:51 06/12/19 elect rocar diogr am No observ ation record ed. Not Available 2023 12:24:06 07/10/19 24 07/08/2023 PET, heart No observ ation record ed. Charly Wallace MD ([facility]) [address], [place], [address], 07/27/2023 13:20:25 07/25/19 24 07/18/2023 , echo ardio gram No observ ation record ed. Not Available 2023 14:36:09 07/25/19 24 07/16/2023 elect rocar diogr am No observ ation record ed. Not Available 2023 14:38:21 07/28/19 24 elect rocar diogr am No observ ation record ed. In-House Results For Internal Use Only, Do Not Delete/merge, [id number] 07/28/2023 10:35:22 07/28/19 24 elect rocar diogr am No observ ation record ed. Not Available 2023 10:34:36 Result Notes None recorded. Problems Name Problem SNOMED Code Status Onset Date Resolution Date Notes Provider Name and Address Organization Details Recorded Time Essential hypertensi on 96814791 Active 2017 Anaya Bolesmet [place], [place] - [facility] 2 14:12:26 Hyperlipid emia 15685602 Active 2017 Anaya Davis null, [place] - [facility] 2 14:12:26 Syncope 665540430 Active 2017 Anaya Bolsemet null, [place] - [facility] 2 14:12:26 Takotsubo cardiomyop athy 812706087 Active 2017 Anaya Bolesmet null, [place] - [facility] 2 14:12:26 Intracrani al meningioma 141246498 Active 2018 s/p craniotomy Anaya Davis null, [place] - [facility] 2 14:12:26 Seizure 68188768 Active 2018 Anaya Davis null, [place] - [facility] 2 14:12:26 Problem Notes None recorded. Procedures Surgical History Date Name Laterality Status Provider Name and Address Organization Details Recorded Time 021 Orthopedic Surgery completed Yisel M[facility] - [facility] 09/21/2020 11:47:00 020 colonoscopy completed Yisel Chavez [place] - [facility] 06/19/2020 15:47:36 019 craniotomy completed Martha Lopes [place] - [facility] 05/05/2018 11:40:36 018 Cardiac Catheterization completed Martha Lopes [place] - [facility] 12/19/2017 10:43:37 015 Orthopedic Surgery completed Martha Scottia [place] - [facility] 12/19/2017 10:39:01 HEENT Surgery completed Martha Scottia [place] - [facility] 12/19/2017 10:40:11 Orthopedic Surgery completed Sascha Lopes [place] - [facility] 12/19/2017 10:40:21 Cholecystectomy completed Martha Lopes [place] - [facility] 12/19/2017 10:40:25 HEENT Surgery completed Martha Lopes [facility] 12/23/2017 16:03:39 Imaging Results Imaging Date Name Status LastModified by Organization Details LastModified Time 09/03/2022 event monitor completed Mike Sam Specialist, [address], [place], [address], 09/15/2022 14:23:32 08/16/2022 XR, chest, 1 view completed Informa tion not available 10/23/2022 15:49:28 08/16/2022 CT, head, w/o contrast completed Information not available 10/23/2022 15:50:38 10/28/2022 US, echocardiogram, transthoracic, complete, w/ color flow completed Radiology [address] [place], [address], 10/29/2022 07:53:37 10/28/2022 US, duplex, carotid artery completed Radiology [address] , [place], [address], 11/01/2022 12:15:47 04/29/2023 US, echocardiogram completed Inform ation not available 06/11/2023 09:25:53 06/11/2023 XR, chest, 1 view completed Informa tion not available 06/11/2023 09:26:50 04/28/2023 MRI, brain, w/o contrast completed Information not available 06/11/2023 09:29:27 04/28/2023 CT, head, w/o contrast completed Information not available 06/11/2023 09:30:30 06/12/2023 electrocardiogram completed In-Hous e Results For Internal Use Only, Do Not Delete/merge, [id number] 06/12/2023 12:19:51 06/12/2023 electrocardiogram completed Informa tion not available 06/12/2023 12:24:06 07/08/2023 PET, heart completed Charly Wallace MD ([facility]) [address], [place], [address], 07/27/2023 13:20:25 07/18/2023 US, echocardiogram completed Inform ation not available 07/25/2023 14:36:09 07/16/2023 electrocardiogram completed Informa tion not available 07/25/2023 14:38:21 07/28/2023 electrocardiogram completed In-Hous e Results For Internal Use Only, Do Not Delete/merge, [id number] 07/28/2023 10:35:22 07/28/2023 electrocardiogram completed Informa tion not available 07/28/2023 10:34:36 Procedure Notes None recorded. Medical Equipment None Reported. Allergies Allergen ID Allergen Name Allergen Category Reaction Reaction Severity Criticality Documentation Date Start Date Code Code System Note Provider Name and Address Organization Details Recorded Time 99693 Cipro medicatio n Not available Not available Not available 12/19/201795897 3 RxNorm Anaya Cannon [place], [place] - [facility] 14:16:18 Medications Name Sig Start Date Stop Date Status Note LastModified by Organization Details LastModified Time losartan 50 mg tablet Take 1 tablet every day by oral route for 90 days. active Not Available Not Available No t Available fluoxetine 40 mg capsule TAKE 1 CAPSULE BY MOUTH EVERY DAY 10/31 completed Not Available Not Available Not Available amoxicillin 500 mg capsule TAKE 4 CAPSULES BY MOUTH 1 HOUR PRIOR TO DENTAL APPOINTME NT 06/11 completed Not Available Not Available Not Available furosemide 40 mg tablet TAKE ONE TABLET BY MOUTH ONE TIME DAILY 2023 active Not Available Not Available Not Avai lable lamotrigine 150 mg tablet Take 1 tablet every day by oral route. 10/29 completed Not Available Not Available Not Available terconazole 0.4 % vaginal cream INSERT ONE APPLICATO RFUL VAGINALLY ONE TIME DAILY AT BEDTIME FOR 7 DAYS 10/31 completed Not Available Not Available Not Available primidone 50 mg tablet Take 1 tablet every day by oral route for 90 days. 01/22 completed Not Available Not Available Not Available potassium chloride ER 10 mEq capsule,ext ended release Take 1 capsule every day by oral route. 06/20 completed Not Available Not Available Not Available carvedilol 6.25 mg tablet TAKE ONE TABLET BY MOUTH TWICE A DAY active Not Available Not Available No t Available prednisone 10 mg tablet 12/23 completed Not Available Not Available Not Available doxycycline hyclate 100 mg capsule TAKE ONE CAPSULE BY MOUTH TWICE A DAY FOR 5 DAYS 06/11 completed Not Available Not Available Not Available venlafaxine 75 mg tablet TAKE 1 TABLET BY MOUTH EVERY DAY 06/20 completed Not Available Not Available Not Available ketoconazol e 2 % shampoo WASH HAIR 3 X WEEKLY. LEAVE LATHERED 5 MINUTES BEFORE RINSING 06/11 completed Not Available Not Available Not Available nabumetone 750 mg tablet TAKE ONE TABLET BY MOUTH TWICE A DAY 10/30 completed Not Available Not Available Not Available azithromyci n 250 mg tablet TAKE TWO TABLETS BY MOUTH ON DAY 1, THEN TAKE ONE TABLET ONE TIME DAILY ON DAYS 2-5 10/30 completed Not Available Not Available Not Available cefpodoxime 100 mg tablet TAKE 1 TABLET BY MOUTH EVERY 12 HOURS FOR 7 DAYS 07/27 completed Not Available Not Available Not Available fluconazole 150 mg tablet TAKE ONE TABLET BY MOUTH ONE TIME DAILY FOR 7 DAYS 07/27 completed Not Available Not Available Not Available benzonatate 200 mg capsule TAKE ONE CAPSULE BY MOUTH THREE TIMES A DAY NEEDED 08/28 completed Not Available Not Available Not Available levetiracet am 500 mg tablet TAKE 1 TABLET BY MOUTH TWICE A DAY 04/27 completed Not Available Not Available Not Available famotidine 40 mg tablet Take 1 tablet every day by oral route for 90 days. 10/29 completed Not Available Not Available Not Available propranolol ER 60 mg capsule,24 hr,extended release Take 1 capsule every day by oral route for 90 days. active Not Available Not Available No t Available clobetasol 0.05 % topical cream APPLY A THIN LAYER TO THE AFFECTED AREA(S) TOPICALLL Y TWO TIMES A DAY 10/29 completed Not Available Not Available Not Available potassium chloride ER 10 mEq tablet,exte nded release Take 1 tablet every day by oral route 11/17 completed Not Available Not Available Not Available metronidazo le 500 mg tablet TAKE ONE TABLET BY MOUTH TWICE A DAY FOR 7 DAYS 10/29 completed Not Available Not Available Not Available amlodipine 5 mg tablet 05/05 completed Not Available Not Available Not Available sulfamethox azole 800 mg-trimetho prim 160 mg tablet TAKE ONE TABLET BY MOUTH EVERY 12 HOURS FOR 10 DAYS 08/28 completed Not Available Not Available Not Available aspirin 81 mg tablet,héctor yed release Take 1 tablet every day by oral route at bedtime. active Not Available Not Available No t Available triamcinolo ne acetonide 0.1 % topical cream 01/27 completed Not Available Not Available Not Available amoxicillin 500 mg tablet 06/11 completed Not Available Not Available Not Available carvedilol 3.125 mg tablet Take 1 tablet twice a day by oral route for 90 days. 10/29 completed Not Available Not Available Not Available levothyroxi ne 25 mcg tablet TAKE ONE TABLET BY MOUTH ONE TIME DAILY IN THE MORNING ON AN EMPTY STOMACH active Not Available Not Available No t Available lamotrigine 25 mg tablet TAKE THREE TABLETS BY MOUTH TWICE A DAY 10/30 completed Not Available Not Available Not Available clobetasol 0.05 % topical gel APPLY A THIN LAYER TO THE AFFECTED AREA(S) BY TOPICAL ROUTE TWO TIMES A DAY 10/29 completed Not Available Not Available Not Available oxycodone-a cetaminophe n 5 mg-325 mg tablet TAKE 1 TABLET ORALLY 4 HRS NEEDED FOR PAIN, NOT TO EXCEED 6 TABS IN 24 HRS. ACUTE PAIN EXCEPTION 06/20 completed Not Available Not Available Not Available alprazolam 0.5 mg tablet 1 TABLET EVERY NIGHT ONCE A DAY ORALLY 20 DAYS 06/11 completed Not Available Not Available Not Available hydromorpho ne 2 mg tablet 1 TAB ORALLY ROUTE EVERY 4 HR NEEDED FOR PAIN, NOT TO EXCEED 6 TAB IN 24 HRS ACUTE PAIN EXCEPTION 09/21 completed Not Available Not Available Not Available primidone 250 mg tablet Take 1 tablet every day by oral route for 90 days. active Not Available Not Available No t Available prednisolon e acetate 1 % eye drops,suspe nsion INSTILL ONE DROP INTO EACH EYE TWICE DAILY FOR 3 WEEKS, THEN STOP 06/11 completed Not Available Not Available Not Available meclizine 25 mg tablet TAKE ONE TABLET BY MOUTH THREE TIMES A DAY ( IN THE MORNING, AT NOON, AND AT BEDTIME ) NEEDED FOR DIZZINESS FOR UP TO 10 DAYS 06/11 completed Not Available Not Available Not Available dexamethaso ne 2 mg tablet 02/03 completed Not Available Not Available Not Available cephalexin 500 mg capsule TAKE BY MOUTH 1 HOUR PRIOR TO PROCEDURE 06/11 completed Not Available Not Available Not Available paroxetine 30 mg tablet Take 1 tablet every day by oral route for 90 days. active Not Available Not Available No t Available pantoprazol e 40 mg tablet,héctor yed release Take 1 tablet every day by oral route for 90 days. active Not Available Not Available No t Available simvastatin 20 mg tablet Take 1 tablet every day by oral route for 90 days. 07/27 completed Not Available Not Available Not Available erythromyci n 5 mg/gram (0.5 %) eye ointment APPLY 1 APPLICATI ON IN BOTH EYES NIGHTLY PRN 09/21 completed Not Available Not Available Not Available esomeprazol e magnesium 40 mg capsule,del ayed release Take 1 capsule every day by oral route for 90 days. active Not Available Not Available No t Available nystatin 100,000 unit/gram topical cream APPLY TO AFFECTED AREA(S) TWO TIMES A DAY 10/29 completed Not Available Not Available Not Available dexamethaso ne 4 mg tablet TAKE TWO TABLETS BY MOUTH ONE TIME DAILY FOR 4 DAYS 08/28 completed Not Available Not Available Not Available losartan 25 mg tablet TAKE ONE TABLET BY MOUTH EVERY MORNING active Not Available Not Available No t Available triamcinolo ne acetonide 0.025 % topical ointment APPLY TO AFECTED AREA ON FACE TWICE DAILY X 5-7 DAYS. DO NOT USE LONGER THAN A WEEK. 10/31 completed Not Available Not Available Not Available mupirocin 2 % topical ointment SMALL AMOUNT BOTH NARES VIA QTIP TWICE A DAY X5 DAYS BEGIN 6 DAYS BEFORE DO NOT APPLY AM OF SURGERY 06/20 completed Not Available Not Available Not Available furosemide 20 mg tablet TAKE 1 TABLET BY MOUTH EVERY DAY 09/21 completed Not Available Not Available Not Available gabapentin 100 mg capsule TAKE 1 CAPSULE BY MOUTH AND TITRATE UP TO 3 CAPSULES BY MOUTH THREE TIMES A DAY 10/30 completed Not Available Not Available Not Available ergocalcife rol (vitamin D2) 1,250 mcg (50,000 unit) capsule Take 1 capsule every day by oral route for 28 days. 06/11 completed Not Available Not Available Not Available clobetasol 0.05 % topical ointment APPLY TO VULVA AREAS UP TO TWO TIMES A DAY FOR ITCHING , THEN TAPER TO 1-2 TIMES PER WEEK 06/11 completed Not Available Not Available Not Available nystatin 100,000 unit/gram topical powder APPLY TO AFFECTED AREA(S) TOPICALLY TWO TIMES A DAY 10/31 completed Not Available Not Available Not Available fluocinonid e 0.05 % topical solution APPLY TO SCALP TWICE A DAY X 2 WEEKS, NEEDED FLARE 08/28 completed Not Available Not Available Not Available cefuroxime axetil 500 mg tablet 12/23 completed Not Available Not Available Not Available levofloxaci n 500 mg tablet 12/23 completed Not Available Not Available Not Available estradiol 0.01% (0.1 mg/gram) vaginal cream INSERT ONE GRAM VAGINALLY ONE TIME DAILY FOR 2 WEEKS active Not Available Not Available No t Available levofloxaci n 750 mg tablet 01/27 completed Not Available Not Available Not Available methylpredn isolone 4 mg tablets in a dose pack FOLLOW THE DIRECTION S LISTED ON THE LABEL OR PROVIDED BY YOUR PHYSICIAN OR PHARMACIS T 08/28 completed Not Available Not Available Not Available albuterol sulfate HFA 90 mcg/actuati on aerosol inhaler INHALE TWO PUFFS BY MOUTH EVERY 4 HOURS NEEDED 06/11 completed Not Available Not Available Not Available paroxetine 40 mg tablet Take 1 tablet every day by oral route for 90 days. 01/27 completed Not Available Not Available Not Available ipratropium bromide 42 mcg (0.06 %) nasal spray USE TWO SPRAYS IN EACH NOSTRIL TWICE DAILY active Not Available Not Available No t Available clobetasol 0.05 % scalp solution APPLY TO AFFECTED AREA(S) ON SCALP BY TOPICAL ROUTE TWO TIMES A DAY 10/29 completed Not Available Not Available Not Available fluticasone propionate 50 mcg/actuati on nasal spray,suspe nsion USE ONE SPRAY IN THE AFFECTED NOSTRIL TWICE A DAY 08/28 completed Not Available Not Available Not Available lamotrigine 100 mg tablet TAKE ONE TABLET BY MOUTH TWICE A DAY active Not Available Not Available No t Available Sudafed 12 Hour 120 mg tablet,exte nded release TAKE ONE TABLET BY MOUTH EVERY 12 HOURS FOR 7 DAYS 08/28 completed Not Available Not Available Not Available mometasone 0.1 % topical cream APPLY TO EARS ONE TIME DAILY FOR ITCHING 10/30 completed Not Available Not Available Not Available amoxicillin 875 mg-potassiu m clavulanate 125 mg tablet TAKE ONE TABLET BY MOUTH TWICE A DAY 08/28 completed Not Available Not Available Not Available amoxicillin 500 mg-potassiu m clavulanate 125 mg tablet 04/03 completed Not Available Not Available Not Available paroxetine ER 37.5 mg tablet,exte nded release 24 hr TAKE 1 TABLET BY MOUTH EVERY DAY 10/31 completed Not Available Not Available Not Available azithromyci n 500 mg tablet 01/27 completed Not Available Not Available Not Available aripiprazol e 10 mg tablet 11/17 completed Not Available Not Available Not Available aripiprazol e 5 mg tablet 01/27 completed Not Available Not Available Not Available ciprofloxac in 0.3 %-dexametha sone 0.1 % ear drops,suspe nsion INSTILL 4 DROPS INTO AFFECTED EAR(S) TWICE A DAY FOR 7 DAYS 06/11 completed Not Available Not Available Not Available rosuvastati n 20 mg tablet TAKE ONE TABLET BY MOUTH ONE TIME DAILY 08/28 completed Not Available Not Available Not Available rosuvastati n 40 mg tablet Take 1 tablet every day by oral route for 90 days. active Not Available Not Available No t Available nitrofurant oin monohydrate /macrocryst als 100 mg capsule TAKE ONE CAPSULE BY MOUTH TWICE A DAY FOR 3 DAYS 07/27 completed Not Available Not Available Not Available selenium sulfide 2.25 % shampoo APPLY TOPICALLY TO WET SCALP ONCE WEEKLY, WORK INTO A FULL LATHER, LEAVE ON FOR 2-3 MINUTES, RINSE THOROUGHL Y, AND THEN PAT DRY 10/29 completed Not Available Not Available Not Available diclofenac 1 % topical gel 01/27 completed Not Available Not Available Not Available cholecalcif caio (vitamin D3) 50 mcg (2,000 unit) capsule Take 1 capsule every day by oral route for 90 days. active Not Available Not Available No t Available Durezol 0.05 % eye drops 01/27 completed Not Available Not Available Not Available BD Ultra-Fine Izabela Pen Needle 32 gauge x 5/32 FOR DAILY SAXENDA INJECTION 11/17 completed Not Available Not Available Not Available Oxtellar XR 150 mg tablet,exte nded release Take 1 tablet every day by oral route for 30 days. 05/05 completed Not Available Not Available Not Available Fluzone High-Dose 2019-20 (PF) 180 mcg/0.5 mL intramuscul ar syringe TO BE ADMINISTE RED BY PHARMACIS T FOR IMMUNIZAT ION 11/17 completed Not Available Not Available Not Available primidone 125 mg tablet Take 1 tablet twice a day by oral route. 10/29 completed Not Available Not Available Not Available Vitals Date Recorded Heart rate Heart rate Heart rate Systolic blood pressure Diastolic blood pressure Systolic blood pressure Diastolic blood pressure Systolic blood pressure Diastolic blood pressure Provider Name and Address Organization Details Last Updated DateTime 3 80 /min 107 /min 90 /min 105 mm[Hg] 48 mm[Hg] 158 mm[Hg] 126 mm[Hg] 117 mm[Hg] 71 mm[Hg] Not Available [facility] 3 10:55:06 Date Recorded Body height Respiratory rate Body mass index (BMI) Body weight Heart rate Oxygen saturation Oxygen saturation in Arterial blood by Pulse oximetry Systolic blood pressure Diastolic blood pressure Provider Name and Address Organization Details Last Updated DateTime 3 162.56 cm 16 /min 41.2 kg/m2 580598. 17 g 72 /min 91 % 91 % 118 mm[Hg] 77 mm[Hg] Teresa Pratt [facility] 3 13:25:12 Date Recorded Heart rate Systolic blood pressure Diastolic blood pressure Provider Name and Address Organization Details Last Updated DateTime 08/30/2022 78 /min 117 mm[Hg] 71 mm[Hg] Not Available [facility] 08/30/2022 15:27:01 Date Recorded Heart rate Systolic blood pressure Diastolic blood pressure Provider Name and Address Organization Details Last Updated DateTime 08/31/2022 71 /min 130 mm[Hg] 75 mm[Hg] Not Available [facility] 08/31/2022 14:40:04 Date Recorded Heart rate Heart rate Systolic blood pressure Diastolic blood pressure Systolic blood pressure Diastolic blood pressure Provider Name and Address Organization Details Last Updated DateTime 3 76 /min 88 /min 68 mm[Hg] 31 mm[Hg] 186 mm[Hg] 153 mm[Hg] Not Available [facility] 3 09:05:13 Date Recorded Heart rate Systolic blood pressure Diastolic blood pressure Provider Name and Address Organization Details Last Updated DateTime 09/11/2022 70 /min 132 mm[Hg] 73 mm[Hg] Not Available [facility] 09/11/2022 12:48:05 Date Recorded Heart rate Systolic blood pressure Diastolic blood pressure Provider Name and Address Organization Details Last Updated DateTime 09/09/2022 79 /min 137 mm[Hg] 79 mm[Hg] Not Available [facility] 09/11/2022 12:48:06 Date Recorded Heart rate Heart rate Systolic blood pressure Diastolic blood pressure Systolic blood pressure Diastolic blood pressure Provider Name and Address Organization Details Last Updated DateTime 3 81 /min 81 /min 136 mm[Hg] 83 mm[Hg] 143 mm[Hg] 79 mm[Hg] Not Available [facility] 3 20:23:05 Date Recorded Heart rate Systolic blood pressure Diastolic blood pressure Provider Name and Address Organization Details Last Updated DateTime 09/15/2022 82 /min 133 mm[Hg] 85 mm[Hg] Not Available [facility] 09/15/2022 11:25:04 Date Recorded Heart rate Systolic blood pressure Diastolic blood pressure Provider Name and Address Organization Details Last Updated DateTime 09/16/2022 85 /min 128 mm[Hg] 85 mm[Hg] Not Available [facility] 09/16/2022 12:13:02 Date Recorded Heart rate Heart rate Systolic blood pressure Diastolic blood pressure Systolic blood pressure Diastolic blood pressure Provider Name and Address Organization Details Last Updated DateTime 3 76 /min 76 /min 125 mm[Hg] 79 mm[Hg] 125 mm[Hg] 79 mm[Hg] Not Available [facility] 3 13:27:03 Date Recorded Heart rate Heart rate Systolic blood pressure Diastolic blood pressure Systolic blood pressure Diastolic blood pressure Provider Name and Address Organization Details Last Updated DateTime 3 72 /min 72 /min 121 mm[Hg] 81 mm[Hg] 121 mm[Hg] 81 mm[Hg] Not Available [facility] 3 13:27:04 Date Recorded Heart rate Heart rate Systolic blood pressure Diastolic blood pressure Systolic blood pressure Diastolic blood pressure Provider Name and Address Organization Details Last Updated DateTime 3 98 /min 98 /min 132 mm[Hg] 79 mm[Hg] 132 mm[Hg] 79 mm[Hg] Not Available [facility] 3 19:31:07 Date Recorded Heart rate Heart rate Systolic blood pressure Diastolic blood pressure Systolic blood pressure Diastolic blood pressure Provider Name and Address Organization Details Last Updated DateTime 3 87 /min 87 /min 139 mm[Hg] 81 mm[Hg] 139 mm[Hg] 81 mm[Hg] Not Available [facility] 3 10:49:09 Date Recorded Heart rate Heart rate Systolic blood pressure Diastolic blood pressure Systolic blood pressure Diastolic blood pressure Provider Name and Address Organization Details Last Updated DateTime 3 79 /min 79 /min 121 mm[Hg] 68 mm[Hg] 121 mm[Hg] 68 mm[Hg] Not Available [facility] 3 13:02:07 Date Recorded Heart rate Heart rate Systolic blood pressure Diastolic blood pressure Systolic blood pressure Diastolic blood pressure Provider Name and Address Organization Details Last Updated DateTime 3 90 /min 90 /min 137 mm[Hg] 82 mm[Hg] 137 mm[Hg] 82 mm[Hg] Not Available [facility] 3 11:17:06 Date Recorded Heart rate Heart rate Systolic blood pressure Diastolic blood pressure Systolic blood pressure Diastolic blood pressure Provider Name and Address Organization Details Last Updated DateTime 3 86 /min 86 /min 142 mm[Hg] 83 mm[Hg] 142 mm[Hg] 83 mm[Hg] Not Available [facility] 3 10:41:05 Date Recorded Heart rate Heart rate Systolic blood pressure Diastolic blood pressure Systolic blood pressure Diastolic blood pressure Provider Name and Address Organization Details Last Updated DateTime 3 90 /min 90 /min 130 mm[Hg] 82 mm[Hg] 130 mm[Hg] 82 mm[Hg] Not Available [facility] 3 11:49:10 Date Recorded Heart rate Heart rate Systolic blood pressure Diastolic blood pressure Systolic blood pressure Diastolic blood pressure Provider Name and Address Organization Details Last Updated DateTime 3 78 /min 78 /min 119 mm[Hg] 82 mm[Hg] 119 mm[Hg] 82 mm[Hg] Not Available [facility] 3 15:13:07 Date Recorded Heart rate Heart rate Systolic blood pressure Diastolic blood pressure Systolic blood pressure Diastolic blood pressure Provider Name and Address Organization Details Last Updated DateTime 3 89 /min 89 /min 144 mm[Hg] 82 mm[Hg] 144 mm[Hg] 82 mm[Hg] Not Available [facility] 3 11:40:08 Date Recorded Heart rate Heart rate Systolic blood pressure Diastolic blood pressure Systolic blood pressure Diastolic blood pressure Provider Name and Address Organization Details Last Updated DateTime 3 76 /min 76 /min 126 mm[Hg] 77 mm[Hg] 126 mm[Hg] 77 mm[Hg] Not Available [facility] 3 12:45:07 Date Recorded Heart rate Heart rate Systolic blood pressure Diastolic blood pressure Systolic blood pressure Diastolic blood pressure Provider Name and Address Organization Details Last Updated DateTime 3 82 /min 82 /min 143 mm[Hg] 77 mm[Hg] 143 mm[Hg] 77 mm[Hg] Not Available [facility] 3 11:22:08 Date Recorded Heart rate Heart rate Systolic blood pressure Diastolic blood pressure Systolic blood pressure Diastolic blood pressure Provider Name and Address Organization Details Last Updated DateTime 3 72 /min 72 /min 147 mm[Hg] 82 mm[Hg] 147 mm[Hg] 82 mm[Hg] Not Available [facility] 3 15:33:07 Date Recorded Heart rate Heart rate Systolic blood pressure Diastolic blood pressure Systolic blood pressure Diastolic blood pressure Provider Name and Address Organization Details Last Updated DateTime 3 82 /min 82 /min 132 mm[Hg] 80 mm[Hg] 132 mm[Hg] 80 mm[Hg] Not Available [facility] 3 12:01:06 Date Recorded Heart rate Heart rate Systolic blood pressure Diastolic blood pressure Systolic blood pressure Diastolic blood pressure Provider Name and Address Organization Details Last Updated DateTime 3 80 /min 80 /min 132 mm[Hg] 79 mm[Hg] 132 mm[Hg] 79 mm[Hg] Not Available [facility] 3 11:09:11 Date Recorded Heart rate Heart rate Systolic blood pressure Diastolic blood pressure Systolic blood pressure Diastolic blood pressure Provider Name and Address Organization Details Last Updated DateTime 3 96 /min 96 /min 147 mm[Hg] 89 mm[Hg] 147 mm[Hg] 89 mm[Hg] Not Available [facility] 3 10:03:19 Date Recorded Heart rate Heart rate Systolic blood pressure Diastolic blood pressure Systolic blood pressure Diastolic blood pressure Provider Name and Address Organization Details Last Updated DateTime 3 92 /min 92 /min 126 mm[Hg] 73 mm[Hg] 126 mm[Hg] 73 mm[Hg] Not Available [facility] 3 10:28:08 Date Recorded Heart rate Heart rate Systolic blood pressure Diastolic blood pressure Systolic blood pressure Diastolic blood pressure Provider Name and Address Organization Details Last Updated DateTime 3 88 /min 88 /min 149 mm[Hg] 83 mm[Hg] 149 mm[Hg] 83 mm[Hg] Not Available [facility] 3 10:07:05 Date Recorded Heart rate Heart rate Systolic blood pressure Diastolic blood pressure Systolic blood pressure Diastolic blood pressure Provider Name and Address Organization Details Last Updated DateTime 3 84 /min 84 /min 149 mm[Hg] 83 mm[Hg] 149 mm[Hg] 83 mm[Hg] Not Available [facility] 3 12:33:05 Date Recorded Heart rate Heart rate Systolic blood pressure Diastolic blood pressure Systolic blood pressure Diastolic blood pressure Provider Name and Address Organization Details Last Updated DateTime 3 82 /min 82 /min 133 mm[Hg] 80 mm[Hg] 133 mm[Hg] 80 mm[Hg] Not Available [facility] 3 12:34:07 Date Recorded Heart rate Heart rate Systolic blood pressure Diastolic blood pressure Systolic blood pressure Diastolic blood pressure Provider Name and Address Organization Details Last Updated DateTime 3 79 /min 79 /min 116 mm[Hg] 80 mm[Hg] 116 mm[Hg] 80 mm[Hg] Not Available [facility] 3 12:02:03 Date Recorded Body height Heart rate Oxygen saturation Oxygen saturation in Arterial blood by Pulse oximetry Respiratory rate Body mass index (BMI) Body weight Systolic blood pressure Diastolic blood pressure Provider Name and Address Organization Details Last Updated DateTime 3 162.56 cm 77 /min 94 % 94 % 16 /min 39.5 kg/m2 452480. 25 g 114 mm[Hg] 76 mm[Hg] [facility] 3 13:00:19 Date Recorded Heart rate Heart rate Systolic blood pressure Diastolic blood pressure Systolic blood pressure Diastolic blood pressure Provider Name and Address Organization Details Last Updated DateTime 3 87 /min 87 /min 135 mm[Hg] 80 mm[Hg] 135 mm[Hg] 80 mm[Hg] Not Available [facility] 3 11:06:06 Date Recorded Heart rate Heart rate Systolic blood pressure Diastolic blood pressure Systolic blood pressure Diastolic blood pressure Provider Name and Address Organization Details Last Updated DateTime 3 82 /min 82 /min 135 mm[Hg] 80 mm[Hg] 135 mm[Hg] 80 mm[Hg] Not Available [facility] 3 10:45:02 Date Recorded Heart rate Heart rate Systolic blood pressure Diastolic blood pressure Systolic blood pressure Diastolic blood pressure Provider Name and Address Organization Details Last Updated DateTime 3 92 /min 92 /min 125 mm[Hg] 82 mm[Hg] 125 mm[Hg] 82 mm[Hg] Not Available [facility] 3 10:52:06 Date Recorded Heart rate Systolic blood pressure Diastolic blood pressure Provider Name and Address Organization Details Last Updated DateTime 11/09/2022 74 /min 125 mm[Hg] 76 mm[Hg] Not Available [facility] 11/09/2022 12:04:03 Date Recorded Heart rate Systolic blood pressure Diastolic blood pressure Provider Name and Address Organization Details Last Updated DateTime 11/11/2022 69 /min 131 mm[Hg] 73 mm[Hg] Not Available [facility] 11/11/2022 12:28:04 Date Recorded Heart rate Heart rate Systolic blood pressure Diastolic blood pressure Systolic blood pressure Diastolic blood pressure Provider Name and Address Organization Details Last Updated DateTime 3 81 /min 83 /min 158 mm[Hg] 84 mm[Hg] 126 mm[Hg] 78 mm[Hg] Not Available [facility] 3 12:48:07 Date Recorded Heart rate Systolic blood pressure Diastolic blood pressure Provider Name and Address Organization Details Last Updated DateTime 11/13/2022 90 /min 129 mm[Hg] 78 mm[Hg] Not Available [facility] 11/13/2022 09:05:07 Date Recorded Heart rate Systolic blood pressure Diastolic blood pressure Provider Name and Address Organization Details Last Updated DateTime 11/14/2022 90 /min 128 mm[Hg] 78 mm[Hg] Not Available [facility] 11/14/2022 10:59:05 Date Recorded Heart rate Systolic blood pressure Diastolic blood pressure Provider Name and Address Organization Details Last Updated DateTime 11/15/2022 82 /min 143 mm[Hg] 80 mm[Hg] Not Available [facility] 11/15/2022 11:28:09 Date Recorded Heart rate Systolic blood pressure Diastolic blood pressure Provider Name and Address Organization Details Last Updated DateTime 11/18/2022 74 /min 115 mm[Hg] 66 mm[Hg] Not Available [facility] 11/18/2022 12:28:03 Date Recorded Heart rate Systolic blood pressure Diastolic blood pressure Provider Name and Address Organization Details Last Updated DateTime 11/20/2022 85 /min 129 mm[Hg] 79 mm[Hg] Not Available [facility] 11/20/2022 11:27:08 Date Recorded Heart rate Systolic blood pressure Diastolic blood pressure Provider Name and Address Organization Details Last Updated DateTime 11/21/2022 77 /min 135 mm[Hg] 80 mm[Hg] Not Available [facility] 11/21/2022 11:20:03 Date Recorded Heart rate Heart rate Systolic blood pressure Diastolic blood pressure Systolic blood pressure Diastolic blood pressure Provider Name and Address Organization Details Last Updated DateTime 90 /min 91 /min 140 mm[Hg] 108 mm[Hg] 134 mm[Hg] 79 mm[Hg] Not Available [facility] 11:33:04 Date Recorded Heart rate Systolic blood pressure Diastolic blood pressure Provider Name and Address Organization Details Last Updated DateTime 11/23/2022 81 /min 134 mm[Hg] 69 mm[Hg] Not Available [facility] 11/23/2022 11:47:03 Date Recorded Heart rate Systolic blood pressure Diastolic blood pressure Provider Name and Address Organization Details Last Updated DateTime 11/26/2022 77 /min 128 mm[Hg] 70 mm[Hg] Not Available [facility] 11/26/2022 12:27:04 Date Recorded Heart rate Systolic blood pressure Diastolic blood pressure Provider Name and Address Organization Details Last Updated DateTime 11/27/2022 85 /min 144 mm[Hg] 83 mm[Hg] Not Available [facility] 11/27/2022 12:15:07 Date Recorded Heart rate Systolic blood pressure Diastolic blood pressure Provider Name and Address Organization Details Last Updated DateTime 11/29/2022 77 /min 134 mm[Hg] 83 mm[Hg] Not Available [facility] 11/29/2022 12:35:02 Date Recorded Heart rate Systolic blood pressure Diastolic blood pressure Provider Name and Address Organization Details Last Updated DateTime 11/30/2022 80 /min 128 mm[Hg] 78 mm[Hg] Not Available [facility] 11/30/2022 11:50:06 Date Recorded Heart rate Systolic blood pressure Diastolic blood pressure Provider Name and Address Organization Details Last Updated DateTime 12/01/2022 81 /min 153 mm[Hg] 82 mm[Hg] Not Available [facility] 12/02/2022 13:32:04 Date Recorded Heart rate Systolic blood pressure Diastolic blood pressure Provider Name and Address Organization Details Last Updated DateTime 12/02/2022 72 /min 128 mm[Hg] 79 mm[Hg] Not Available [facility] 12/02/2022 13:32:06 Date Recorded Heart rate Systolic blood pressure Diastolic blood pressure Provider Name and Address Organization Details Last Updated DateTime 12/03/2022 75 /min 128 mm[Hg] 79 mm[Hg] Not Available [facility] 12/03/2022 15:28:02 Date Recorded Heart rate Systolic blood pressure Diastolic blood pressure Provider Name and Address Organization Details Last Updated DateTime 12/05/2022 89 /min 122 mm[Hg] 77 mm[Hg] Not Available [facility] 12/05/2022 11:33:06 Date Recorded Heart rate Heart rate Systolic blood pressure Diastolic blood pressure Systolic blood pressure Diastolic blood pressure Provider Name and Address Organization Details Last Updated DateTime 82 /min 81 /min 151 mm[Hg] 79 mm[Hg] 125 mm[Hg] 77 mm[Hg] Not Available [facility] 11:10:07 Date Recorded Heart rate Heart rate Systolic blood pressure Diastolic blood pressure Systolic blood pressure Diastolic blood pressure Provider Name and Address Organization Details Last Updated DateTime 80 /min 80 /min 111 mm[Hg] 77 mm[Hg] 148 mm[Hg] 78 mm[Hg] Not Available [facility] 3 10:54:06 Date Recorded Heart rate Systolic blood pressure Diastolic blood pressure Provider Name and Address Organization Details Last Updated DateTime 12/09/2022 77 /min 133 mm[Hg] 76 mm[Hg] Not Available [facility] 12/09/2022 12:31:03 Date Recorded Heart rate Systolic blood pressure Diastolic blood pressure Provider Name and Address Organization Details Last Updated DateTime 12/10/2022 84 /min 145 mm[Hg] 76 mm[Hg] Not Available [facility] 12/10/2022 10:24:05 Date Recorded Heart rate Systolic blood pressure Diastolic blood pressure Provider Name and Address Organization Details Last Updated DateTime 12/11/2022 86 /min 133 mm[Hg] 77 mm[Hg] Not Available [facility] 12/11/2022 10:42:05 Date Recorded Heart rate Systolic blood pressure Diastolic blood pressure Provider Name and Address Organization Details Last Updated DateTime 12/12/2022 73 /min 119 mm[Hg] 77 mm[Hg] Not Available [facility] 12/13/2022 11:36:01 Date Recorded Heart rate Systolic blood pressure Diastolic blood pressure Provider Name and Address Organization Details Last Updated DateTime 12/13/2022 79 /min 138 mm[Hg] 80 mm[Hg] Not Available [facility] 12/13/2022 11:36:05 Date Recorded Heart rate Systolic blood pressure Diastolic blood pressure Provider Name and Address Organization Details Last Updated DateTime 12/14/2022 87 /min 154 mm[Hg] 80 mm[Hg] Not Available [facility] 12/15/2022 11:54:07 Date Recorded Heart rate Systolic blood pressure Diastolic blood pressure Provider Name and Address Organization Details Last Updated DateTime 12/15/2022 82 /min 131 mm[Hg] 75 mm[Hg] Not Available [facility] 12/15/2022 11:55:06 Date Recorded Heart rate Heart rate Systolic blood pressure Diastolic blood pressure Systolic blood pressure Diastolic blood pressure Provider Name and Address Organization Details Last Updated DateTime 85 /min 78 /min 152 mm[Hg] 135 mm[Hg] 109 mm[Hg] 66 mm[Hg] Not Available [facility] 3 10:54:05 Date Recorded Heart rate Heart rate Systolic blood pressure Diastolic blood pressure Systolic blood pressure Diastolic blood pressure Provider Name and Address Organization Details Last Updated DateTime 3 79 /min 80 /min 141 mm[Hg] 100 mm[Hg] 111 mm[Hg] 61 mm[Hg] Not Available [facility] 3 10:59:01 Date Recorded Heart rate Systolic blood pressure Diastolic blood pressure Provider Name and Address Organization Details Last Updated DateTime 12/20/2022 80 /min 108 mm[Hg] 51 mm[Hg] Not Available [facility] 12/20/2022 11:05:05 Date Recorded Heart rate Systolic blood pressure Diastolic blood pressure Provider Name and Address Organization Details Last Updated DateTime 12/22/2022 81 /min 125 mm[Hg] 68 mm[Hg] Not Available [facility] 12/22/2022 11:11:01 Date Recorded Heart rate Systolic blood pressure Diastolic blood pressure Provider Name and Address Organization Details Last Updated DateTime 12/23/2022 84 /min 131 mm[Hg] 68 mm[Hg] Not Available [facility] 12/23/2022 12:30:07 Date Recorded Heart rate Systolic blood pressure Diastolic blood pressure Provider Name and Address Organization Details Last Updated DateTime 12/24/2022 81 /min 121 mm[Hg] 68 mm[Hg] Not Available [facility] 12/26/2022 10:45:02 Date Recorded Heart rate Heart rate Systolic blood pressure Diastolic blood pressure Systolic blood pressure Diastolic blood pressure Provider Name and Address Organization Details Last Updated DateTime 3 90 /min 90 /min 136 mm[Hg] 111 mm[Hg] 123 mm[Hg] 59 mm[Hg] Not Available [facility] 3 14:31:04 Date Recorded Heart rate Systolic blood pressure Diastolic blood pressure Provider Name and Address Organization Details Last Updated DateTime 12/26/2022 82 /min 121 mm[Hg] 72 mm[Hg] Not Available [facility] 12/30/2022 14:31:02 Date Recorded Heart rate Systolic blood pressure Diastolic blood pressure Provider Name and Address Organization Details Last Updated DateTime 12/30/2022 83 /min 124 mm[Hg] 71 mm[Hg] Not Available [facility] 12/30/2022 14:32:06 Date Recorded Heart rate Systolic blood pressure Diastolic blood pressure Provider Name and Address Organization Details Last Updated DateTime 12/31/2022 98 /min 111 mm[Hg] 68 mm[Hg] Not Available [facility] 12/31/2022 10:51:04 Date Recorded Heart rate Systolic blood pressure Diastolic blood pressure Provider Name and Address Organization Details Last Updated DateTime 01/01/2023 84 /min 115 mm[Hg] 70 mm[Hg] Not Available [facility] 01/01/2023 11:51:05 Date Recorded Heart rate Systolic blood pressure Diastolic blood pressure Provider Name and Address Organization Details Last Updated DateTime 01/03/2023 79 /min 126 mm[Hg] 77 mm[Hg] Not Available [facility] 01/03/2023 12:18:08 Date Recorded Heart rate Systolic blood pressure Diastolic blood pressure Provider Name and Address Organization Details Last Updated DateTime 01/04/2023 82 /min 126 mm[Hg] 77 mm[Hg] Not Available [facility] 01/04/2023 12:00:02 Date Recorded Heart rate Heart rate Systolic blood pressure Diastolic blood pressure Systolic blood pressure Diastolic blood pressure Provider Name and Address Organization Details Last Updated DateTime 85 /min 87 /min 136 mm[Hg] 97 mm[Hg] 121 mm[Hg] 75 mm[Hg] Not Available [facility] 11:26:06 Date Recorded Heart rate Systolic blood pressure Diastolic blood pressure Provider Name and Address Organization Details Last Updated DateTime 01/08/2023 72 /min 121 mm[Hg] 75 mm[Hg] Not Available [facility] 01/08/2023 13:06:04 Date Recorded Heart rate Heart rate Systolic blood pressure Diastolic blood pressure Systolic blood pressure Diastolic blood pressure Provider Name and Address Organization Details Last Updated DateTime 81 /min 74 /min 141 mm[Hg] 93 mm[Hg] 125 mm[Hg] 71 mm[Hg] Not Available [facility] 13:54:01 Date Recorded Heart rate Systolic blood pressure Diastolic blood pressure Provider Name and Address Organization Details Last Updated DateTime 01/10/2023 75 /min 119 mm[Hg] 65 mm[Hg] Not Available [facility] 01/10/2023 12:34:07 Date Recorded Heart rate Systolic blood pressure Diastolic blood pressure Provider Name and Address Organization Details Last Updated DateTime 01/12/2023 77 /min 114 mm[Hg] 63 mm[Hg] Not Available [facility] 01/12/2023 15:30:03 Date Recorded Heart rate Systolic blood pressure Diastolic blood pressure Provider Name and Address Organization Details Last Updated DateTime 01/13/2023 73 /min 112 mm[Hg] 47 mm[Hg] Not Available [facility] 01/13/2023 13:18:02 Date Recorded Heart rate Systolic blood pressure Diastolic blood pressure Provider Name and Address Organization Details Last Updated DateTime 01/14/2023 74 /min 123 mm[Hg] 71 mm[Hg] Not Available [facility] 01/14/2023 14:02:04 Date Recorded Heart rate Systolic blood pressure Diastolic blood pressure Provider Name and Address Organization Details Last Updated DateTime 01/16/2023 81 /min 110 mm[Hg] 66 mm[Hg] Not Available [facility] 01/16/2023 11:03:02 Date Recorded Heart rate Systolic blood pressure Diastolic blood pressure Provider Name and Address Organization Details Last Updated DateTime 01/19/2023 87 /min 125 mm[Hg] 80 mm[Hg] Not Available [facility] 01/19/2023 10:28:02 Date Recorded Heart rate Systolic blood pressure Diastolic blood pressure Provider Name and Address Organization Details Last Updated DateTime 01/18/2023 84 /min 150 mm[Hg] 68 mm[Hg] Not Available [facility] 01/19/2023 10:28:06 Date Recorded Heart rate Systolic blood pressure Diastolic blood pressure Provider Name and Address Organization Details Last Updated DateTime 01/21/2023 82 /min 143 mm[Hg] 77 mm[Hg] Not Available [facility] 01/21/2023 10:44:02 Date Recorded Heart rate Systolic blood pressure Diastolic blood pressure Provider Name and Address Organization Details Last Updated DateTime 01/20/2023 73 /min 119 mm[Hg] 74 mm[Hg] Not Available [facility] 01/21/2023 10:44:06 Date Recorded Heart rate Systolic blood pressure Diastolic blood pressure Provider Name and Address Organization Details Last Updated DateTime 01/22/2023 82 /min 113 mm[Hg] 70 mm[Hg] Not Available [facility] 01/22/2023 12:50:05 Date Recorded Heart rate Systolic blood pressure Diastolic blood pressure Provider Name and Address Organization Details Last Updated DateTime 01/23/2023 81 /min 115 mm[Hg] 76 mm[Hg] Not Available [facility] 01/23/2023 12:51:04 Date Recorded Heart rate Systolic blood pressure Diastolic blood pressure Provider Name and Address Organization Details Last Updated DateTime 01/24/2023 72 /min 116 mm[Hg] 64 mm[Hg] Not Available [facility] 01/24/2023 15:15:02 Date Recorded Heart rate Systolic blood pressure Diastolic blood pressure Provider Name and Address Organization Details Last Updated DateTime 01/25/2023 81 /min 110 mm[Hg] 61 mm[Hg] Not Available [facility] 01/25/2023 13:07:06 Date Recorded Heart rate Systolic blood pressure Diastolic blood pressure Provider Name and Address Organization Details Last Updated DateTime 01/26/2023 86 /min 117 mm[Hg] 64 mm[Hg] Not Available [facility] 01/26/2023 13:30:07 Date Recorded Heart rate Systolic blood pressure Diastolic blood pressure Provider Name and Address Organization Details Last Updated DateTime 01/27/2023 84 /min 113 mm[Hg] 57 mm[Hg] Not Available [facility] 01/27/2023 14:24:05 Date Recorded Heart rate Systolic blood pressure Diastolic blood pressure Provider Name and Address Organization Details Last Updated DateTime 01/29/2023 76 /min 113 mm[Hg] 57 mm[Hg] Not Available [facility] 01/29/2023 11:56:07 Date Recorded Heart rate Systolic blood pressure Diastolic blood pressure Provider Name and Address Organization Details Last Updated DateTime 01/30/2023 70 /min 128 mm[Hg] 69 mm[Hg] Not Available [facility] 02/02/2023 19:41:01 Date Recorded Heart rate Heart rate Systolic blood pressure Diastolic blood pressure Systolic blood pressure Diastolic blood pressure Provider Name and Address Organization Details Last Updated DateTime 70 /min 71 /min 140 mm[Hg] 70 mm[Hg] 150 mm[Hg] 74 mm[Hg] Not Available [facility] 19:41:02 Date Recorded Heart rate Systolic blood pressure Diastolic blood pressure Provider Name and Address Organization Details Last Updated DateTime 02/03/2023 68 /min 133 mm[Hg] 67 mm[Hg] Not Available [facility] 02/03/2023 12:52:03 Date Recorded Heart rate Systolic blood pressure Diastolic blood pressure Provider Name and Address Organization Details Last Updated DateTime 02/05/2023 74 /min 133 mm[Hg] 69 mm[Hg] Not Available [facility] 02/05/2023 11:03:04 Date Recorded Heart rate Heart rate Systolic blood pressure Diastolic blood pressure Systolic blood pressure Diastolic blood pressure Provider Name and Address Organization Details Last Updated DateTime 3 81 /min 83 /min 133 mm[Hg] 79 mm[Hg] 138 mm[Hg] 104 mm[Hg] Not Available [facility] 3 10:12:05 Date Recorded Heart rate Systolic blood pressure Diastolic blood pressure Provider Name and Address Organization Details Last Updated DateTime 02/08/2023 81 /min 139 mm[Hg] 79 mm[Hg] Not Available [facility] 02/08/2023 11:31:03 Date Recorded Heart rate Systolic blood pressure Diastolic blood pressure Provider Name and Address Organization Details Last Updated DateTime 02/10/2023 78 /min 136 mm[Hg] 78 mm[Hg] Not Available [facility] 02/10/2023 12:16:04 Date Recorded Heart rate Systolic blood pressure Diastolic blood pressure Provider Name and Address Organization Details Last Updated DateTime 02/11/2023 83 /min 136 mm[Hg] 89 mm[Hg] Not Available [facility] 02/11/2023 09:17:06 Date Recorded Heart rate Systolic blood pressure Diastolic blood pressure Provider Name and Address Organization Details Last Updated DateTime 02/12/2023 84 /min 111 mm[Hg] 63 mm[Hg] Not Available [facility] 02/14/2023 13:26:07 Date Recorded Heart rate Heart rate Systolic blood pressure Diastolic blood pressure Systolic blood pressure Diastolic blood pressure Provider Name and Address Organization Details Last Updated DateTime 3 83 /min 82 /min 148 mm[Hg] 84 mm[Hg] 148 mm[Hg] 83 mm[Hg] Not Available [facility] 3 13:28:01 Date Recorded Heart rate Heart rate Systolic blood pressure Diastolic blood pressure Systolic blood pressure Diastolic blood pressure Provider Name and Address Organization Details Last Updated DateTime 3 84 /min 81 /min 145 mm[Hg] 83 mm[Hg] 134 mm[Hg] 70 mm[Hg] Not Available [facility] 3 11:15:05 Date Recorded Heart rate Heart rate Systolic blood pressure Diastolic blood pressure Provider Name and Address Organization Details Last Updated DateTime 02/16/2023 82 /min 79 /min 135 mm[Hg] 77 mm[Hg] Not Available [facility] 02/16/2023 12:44:05 Date Recorded Heart rate Systolic blood pressure Diastolic blood pressure Provider Name and Address Organization Details Last Updated DateTime 02/17/2023 98 /min 117 mm[Hg] 78 mm[Hg] Not Available [facility] 02/17/2023 11:11:04 Date Recorded Heart rate Systolic blood pressure Diastolic blood pressure Provider Name and Address Organization Details Last Updated DateTime 02/20/2023 74 /min 112 mm[Hg] 64 mm[Hg] Not Available [facility] 02/21/2023 12:00:05 Date Recorded Heart rate Heart rate Systolic blood pressure Diastolic blood pressure Systolic blood pressure Diastolic blood pressure Provider Name and Address Organization Details Last Updated DateTime 3 79 /min 79 /min 110 mm[Hg] 65 mm[Hg] 123 mm[Hg] 96 mm[Hg] Not Available [facility] 3 12:01:06 Date Recorded Heart rate Heart rate Heart rate Systolic blood pressure Diastolic blood pressure Systolic blood pressure Diastolic blood pressure Systolic blood pressure Diastolic blood pressure Provider Name and Address Organization Details Last Updated DateTime 3 92 /min 87 /min 79 /min 184 mm[Hg] 129 mm[Hg] 93 mm[Hg] 53 mm[Hg] 133 mm[Hg] 90 mm[Hg] Not Available [facility] 3 11:56:05 Date Recorded Heart rate Systolic blood pressure Diastolic blood pressure Provider Name and Address Organization Details Last Updated DateTime 02/24/2023 74 /min 127 mm[Hg] 83 mm[Hg] Not Available [facility] 02/28/2023 11:18:02 Date Recorded Heart rate Systolic blood pressure Diastolic blood pressure Provider Name and Address Organization Details Last Updated DateTime 02/25/2023 92 /min 121 mm[Hg] 79 mm[Hg] Not Available [facility] 02/28/2023 11:18:06 Date Recorded Heart rate Systolic blood pressure Diastolic blood pressure Provider Name and Address Organization Details Last Updated DateTime 02/26/2023 82 /min 139 mm[Hg] 82 mm[Hg] Not Available [facility] 02/28/2023 11:19:05 Date Recorded Heart rate Systolic blood pressure Diastolic blood pressure Provider Name and Address Organization Details Last Updated DateTime 02/28/2023 97 /min 126 mm[Hg] 78 mm[Hg] Not Available [facility] 02/28/2023 11:20:03 Date Recorded Heart rate Systolic blood pressure Diastolic blood pressure Provider Name and Address Organization Details Last Updated DateTime 03/03/2023 92 /min 126 mm[Hg] 82 mm[Hg] Not Available [facility] 03/03/2023 11:55:02 Date Recorded Heart rate Systolic blood pressure Diastolic blood pressure Provider Name and Address Organization Details Last Updated DateTime 03/02/2023 86 /min 127 mm[Hg] 84 mm[Hg] Not Available [facility] 03/03/2023 11:55:03 Date Recorded Heart rate Systolic blood pressure Diastolic blood pressure Provider Name and Address Organization Details Last Updated DateTime 03/04/2023 87 /min 133 mm[Hg] 82 mm[Hg] Not Available [facility] 04/07/2023 10:49:03 Date Recorded Heart rate Systolic blood pressure Diastolic blood pressure Provider Name and Address Organization Details Last Updated DateTime 03/05/2023 85 /min 115 mm[Hg] 68 mm[Hg] Not Available [facility] 04/07/2023 10:49:05 Date Recorded Heart rate Systolic blood pressure Diastolic blood pressure Provider Name and Address Organization Details Last Updated DateTime 03/10/2023 82 /min 135 mm[Hg] 84 mm[Hg] Not Available [facility] 04/07/2023 10:50:02 Date Recorded Heart rate Systolic blood pressure Diastolic blood pressure Provider Name and Address Organization Details Last Updated DateTime 03/09/2023 84 /min 116 mm[Hg] 80 mm[Hg] Not Available [facility] 04/07/2023 10:50:05 Date Recorded Heart rate Heart rate Systolic blood pressure Diastolic blood pressure Systolic blood pressure Diastolic blood pressure Provider Name and Address Organization Details Last Updated DateTime 81 /min 80 /min 152 mm[Hg] 86 mm[Hg] 124 mm[Hg] 82 mm[Hg] Not Available [facility] 10:50:06 Date Recorded Heart rate Systolic blood pressure Diastolic blood pressure Provider Name and Address Organization Details Last Updated DateTime 03/06/2023 82 /min 114 mm[Hg] 68 mm[Hg] Not Available [facility] 04/07/2023 10:50:05 Date Recorded Heart rate Systolic blood pressure Diastolic blood pressure Provider Name and Address Organization Details Last Updated DateTime 03/17/2023 87 /min 112 mm[Hg] 66 mm[Hg] Not Available [facility] 04/07/2023 10:51:02 Date Recorded Heart rate Systolic blood pressure Diastolic blood pressure Provider Name and Address Organization Details Last Updated DateTime 03/15/2023 83 /min 126 mm[Hg] 85 mm[Hg] Not Available [facility] 04/07/2023 10:51:02 Date Recorded Heart rate Systolic blood pressure Diastolic blood pressure Provider Name and Address Organization Details Last Updated DateTime 03/12/2023 84 /min 129 mm[Hg] 84 mm[Hg] Not Available [facility] 04/07/2023 10:51:04 Date Recorded Heart rate Heart rate Systolic blood pressure Diastolic blood pressure Systolic blood pressure Diastolic blood pressure Provider Name and Address Organization Details Last Updated DateTime 86 /min 83 /min 154 mm[Hg] 90 mm[Hg] 133 mm[Hg] 90 mm[Hg] Not Available [facility] 10:52:04 Date Recorded Heart rate Systolic blood pressure Diastolic blood pressure Provider Name and Address Organization Details Last Updated DateTime 03/13/2023 87 /min 126 mm[Hg] 75 mm[Hg] Not Available [facility] 04/07/2023 10:51:07 Date Recorded Heart rate Systolic blood pressure Diastolic blood pressure Provider Name and Address Organization Details Last Updated DateTime 03/20/2023 83 /min 139 mm[Hg] 78 mm[Hg] Not Available [facility] 04/07/2023 10:52:04 Date Recorded Heart rate Systolic blood pressure Diastolic blood pressure Provider Name and Address Organization Details Last Updated DateTime 03/19/2023 84 /min 133 mm[Hg] 85 mm[Hg] Not Available [facility] 04/07/2023 10:52:06 Date Recorded Heart rate Heart rate Systolic blood pressure Diastolic blood pressure Systolic blood pressure Diastolic blood pressure Provider Name and Address Organization Details Last Updated DateTime 3 82 /min 78 /min 149 mm[Hg] 81 mm[Hg] 117 mm[Hg] 54 mm[Hg] Not Available [facility] 4 10:52:08 Date Recorded Heart rate Heart rate Systolic blood pressure Diastolic blood pressure Systolic blood pressure Diastolic blood pressure Provider Name and Address Organization Details Last Updated DateTime 3 87 /min 81 /min 153 mm[Hg] 116 mm[Hg] 133 mm[Hg] 73 mm[Hg] Not Available [facility] 4 10:53:12 Date Recorded Heart rate Heart rate Systolic blood pressure Diastolic blood pressure Systolic blood pressure Diastolic blood pressure Provider Name and Address Organization Details Last Updated DateTime 3 79 /min 80 /min 131 mm[Hg] 67 mm[Hg] 147 mm[Hg] 84 mm[Hg] Not Available [facility] 4 10:53:06 Date Recorded Heart rate Heart rate Systolic blood pressure Diastolic blood pressure Systolic blood pressure Diastolic blood pressure Provider Name and Address Organization Details Last Updated DateTime 4 94 /min 77 /min 154 mm[Hg] 106 mm[Hg] 108 mm[Hg] 79 mm[Hg] Not Available [facility] 4 10:54:06 Date Recorded Heart rate Systolic blood pressure Diastolic blood pressure Provider Name and Address Organization Details Last Updated DateTime 03/27/2023 87 /min 139 mm[Hg] 79 mm[Hg] Not Available [facility] 04/07/2023 10:54:05 Date Recorded Heart rate Heart rate Systolic blood pressure Diastolic blood pressure Systolic blood pressure Diastolic blood pressure Provider Name and Address Organization Details Last Updated DateTime 4 87 /min 84 /min 149 mm[Hg] 90 mm[Hg] 126 mm[Hg] 74 mm[Hg] Not Available [facility] 4 12:37:07 Date Recorded Heart rate Systolic blood pressure Diastolic blood pressure Provider Name and Address Organization Details Last Updated DateTime 03/30/2023 84 /min 139 mm[Hg] 86 mm[Hg] Not Available [facility] 04/27/2023 14:59:01 Date Recorded Heart rate Systolic blood pressure Diastolic blood pressure Provider Name and Address Organization Details Last Updated DateTime 03/29/2023 82 /min 139 mm[Hg] 89 mm[Hg] Not Available [facility] 04/27/2023 14:59:04 Date Recorded Heart rate Systolic blood pressure Diastolic blood pressure Provider Name and Address Organization Details Last Updated DateTime 03/31/2023 81 /min 127 mm[Hg] 72 mm[Hg] Not Available [facility] 04/27/2023 14:59:06 Date Recorded Heart rate Systolic blood pressure Diastolic blood pressure Provider Name and Address Organization Details Last Updated DateTime 04/03/2023 88 /min 119 mm[Hg] 67 mm[Hg] Not Available [facility] 04/27/2023 15:00:03 Date Recorded Heart rate Systolic blood pressure Diastolic blood pressure Provider Name and Address Organization Details Last Updated DateTime 04/05/2023 75 /min 125 mm[Hg] 73 mm[Hg] Not Available [facility] 04/27/2023 15:00:07 Date Recorded Heart rate Systolic blood pressure Diastolic blood pressure Provider Name and Address Organization Details Last Updated DateTime 04/01/2023 87 /min 152 mm[Hg] 87 mm[Hg] Not Available [facility] 04/27/2023 15:00:08 Date Recorded Heart rate Systolic blood pressure Diastolic blood pressure Provider Name and Address Organization Details Last Updated DateTime 04/02/2023 88 /min 117 mm[Hg] 85 mm[Hg] Not Available [facility] 04/27/2023 15:00:08 Date Recorded Heart rate Systolic blood pressure Diastolic blood pressure Provider Name and Address Organization Details Last Updated DateTime 04/07/2023 83 /min 123 mm[Hg] 60 mm[Hg] Not Available [facility] 04/27/2023 15:01:02 Date Recorded Heart rate Systolic blood pressure Diastolic blood pressure Provider Name and Address Organization Details Last Updated DateTime 04/06/2023 87 /min 123 mm[Hg] 76 mm[Hg] Not Available [facility] 04/27/2023 15:01:03 Date Recorded Heart rate Systolic blood pressure Diastolic blood pressure Provider Name and Address Organization Details Last Updated DateTime 04/08/2023 86 /min 139 mm[Hg] 74 mm[Hg] Not Available [facility] 04/27/2023 15:01:03 Date Recorded Heart rate Systolic blood pressure Diastolic blood pressure Provider Name and Address Organization Details Last Updated DateTime 04/04/2023 87 /min 126 mm[Hg] 67 mm[Hg] Not Available [facility] 04/27/2023 15:01:03 Date Recorded Heart rate Systolic blood pressure Diastolic blood pressure Provider Name and Address Organization Details Last Updated DateTime 04/09/2023 83 /min 106 mm[Hg] 71 mm[Hg] Not Available [facility] 04/27/2023 15:01:04 Date Recorded Heart rate Heart rate Systolic blood pressure Diastolic blood pressure Systolic blood pressure Diastolic blood pressure Provider Name and Address Organization Details Last Updated DateTime 4 119 /min 88 /min 129 mm[Hg] 96 mm[Hg] 110 mm[Hg] 70 mm[Hg] Not Available [facility] 15:02:06 Date Recorded Heart rate Heart rate Systolic blood pressure Diastolic blood pressure Systolic blood pressure Diastolic blood pressure Provider Name and Address Organization Details Last Updated DateTime 4 85 /min 82 /min 126 mm[Hg] 73 mm[Hg] 147 mm[Hg] 108 mm[Hg] Not Available [facility] 15:02:06 Date Recorded Heart rate Systolic blood pressure Diastolic blood pressure Provider Name and Address Organization Details Last Updated DateTime 04/12/2023 86 /min 127 mm[Hg] 61 mm[Hg] Not Available [facility] 04/27/2023 15:02:03 Date Recorded Heart rate Systolic blood pressure Diastolic blood pressure Provider Name and Address Organization Details Last Updated DateTime 04/11/2023 89 /min 134 mm[Hg] 86 mm[Hg] Not Available [facility] 04/27/2023 15:02:06 Date Recorded Heart rate Systolic blood pressure Diastolic blood pressure Provider Name and Address Organization Details Last Updated DateTime 04/16/2023 79 /min 142 mm[Hg] 74 mm[Hg] Not Available [facility] 04/27/2023 15:03:04 Date Recorded Heart rate Heart rate Systolic blood pressure Diastolic blood pressure Systolic blood pressure Diastolic blood pressure Provider Name and Address Organization Details Last Updated DateTime 4 84 /min 83 /min 141 mm[Hg] 74 mm[Hg] 125 mm[Hg] 74 mm[Hg] Not Available [facility] 4 15:03:06 Date Recorded Heart rate Heart rate Systolic blood pressure Diastolic blood pressure Systolic blood pressure Diastolic blood pressure Provider Name and Address Organization Details Last Updated DateTime 4 85 /min 84 /min 144 mm[Hg] 80 mm[Hg] 124 mm[Hg] 76 mm[Hg] Not Available [facility] 4 15:04:01 Date Recorded Heart rate Systolic blood pressure Diastolic blood pressure Provider Name and Address Organization Details Last Updated DateTime 04/18/2023 80 /min 130 mm[Hg] 76 mm[Hg] Not Available [facility] 04/27/2023 15:04:03 Date Recorded Heart rate Systolic blood pressure Diastolic blood pressure Provider Name and Address Organization Details Last Updated DateTime 04/19/2023 81 /min 133 mm[Hg] 76 mm[Hg] Not Available [facility] 04/27/2023 15:04:05 Date Recorded Heart rate Systolic blood pressure Diastolic blood pressure Provider Name and Address Organization Details Last Updated DateTime 04/20/2023 84 /min 127 mm[Hg] 78 mm[Hg] Not Available [facility] 04/27/2023 15:04:05 Date Recorded Heart rate Heart rate Systolic blood pressure Diastolic blood pressure Systolic blood pressure Diastolic blood pressure Provider Name and Address Organization Details Last Updated DateTime 4 84 /min 82 /min 150 mm[Hg] 84 mm[Hg] 135 mm[Hg] 81 mm[Hg] Not Available [facility] 4 15:05:04 Date Recorded Heart rate Heart rate Systolic blood pressure Diastolic blood pressure Systolic blood pressure Diastolic blood pressure Provider Name and Address Organization Details Last Updated DateTime 4 76 /min 78 /min 146 mm[Hg] 86 mm[Hg] 141 mm[Hg] 81 mm[Hg] Not Available [facility] 4 15:08:08 Date Recorded Heart rate Systolic blood pressure Diastolic blood pressure Provider Name and Address Organization Details Last Updated DateTime 04/23/2023 88 /min 137 mm[Hg] 84 mm[Hg] Not Available [facility] 04/27/2023 15:07:03 Date Recorded Heart rate Systolic blood pressure Diastolic blood pressure Provider Name and Address Organization Details Last Updated DateTime 04/24/2023 82 /min 124 mm[Hg] 72 mm[Hg] Not Available [facility] 04/27/2023 15:07:04 Date Recorded Heart rate Systolic blood pressure Diastolic blood pressure Provider Name and Address Organization Details Last Updated DateTime 04/22/2023 87 /min 118 mm[Hg] 84 mm[Hg] Not Available [facility] 04/27/2023 15:07:04 Date Recorded Heart rate Heart rate Systolic blood pressure Diastolic blood pressure Systolic blood pressure Diastolic blood pressure Provider Name and Address Organization Details Last Updated DateTime 85 /min 87 /min 131 mm[Hg] 76 mm[Hg] 143 mm[Hg] 88 mm[Hg] Not Available [facility] 15:08:04 Date Recorded Heart rate Systolic blood pressure Diastolic blood pressure Provider Name and Address Organization Details Last Updated DateTime 04/30/2023 73 /min 126 mm[Hg] 74 mm[Hg] Not Available [facility] 06/06/2023 11:33:02 Date Recorded Heart rate Systolic blood pressure Diastolic blood pressure Provider Name and Address Organization Details Last Updated DateTime 05/01/2023 74 /min 126 mm[Hg] 74 mm[Hg] Not Available [facility] 06/06/2023 11:33:03 Date Recorded Heart rate Systolic blood pressure Diastolic blood pressure Provider Name and Address Organization Details Last Updated DateTime 05/02/2023 74 /min 137 mm[Hg] 74 mm[Hg] Not Available [facility] 06/06/2023 11:34:04 Date Recorded Heart rate Systolic blood pressure Diastolic blood pressure Provider Name and Address Organization Details Last Updated DateTime 05/05/2023 65 /min 132 mm[Hg] 74 mm[Hg] Not Available [facility] 06/09/2023 10:25:02 Date Recorded Heart rate Heart rate Systolic blood pressure Diastolic blood pressure Systolic blood pressure Diastolic blood pressure Provider Name and Address Organization Details Last Updated DateTime 4 74 /min 73 /min 84 mm[Hg] 62 mm[Hg] 136 mm[Hg] 80 mm[Hg] Not Available [facility] 10:25:05 Date Recorded Heart rate Systolic blood pressure Diastolic blood pressure Provider Name and Address Organization Details Last Updated DateTime 05/04/2023 67 /min 132 mm[Hg] 74 mm[Hg] Not Available [facility] 06/09/2023 10:25:04 Date Recorded Heart rate Systolic blood pressure Diastolic blood pressure Provider Name and Address Organization Details Last Updated DateTime 05/07/2023 72 /min 115 mm[Hg] 59 mm[Hg] Not Available [facility] 06/09/2023 10:26:04 Date Recorded Heart rate Systolic blood pressure Diastolic blood pressure Provider Name and Address Organization Details Last Updated DateTime 05/08/2023 73 /min 133 mm[Hg] 75 mm[Hg] Not Available [facility] 06/10/2023 12:56:05 Date Recorded Heart rate Systolic blood pressure Diastolic blood pressure Provider Name and Address Organization Details Last Updated DateTime 05/09/2023 72 /min 133 mm[Hg] 62 mm[Hg] Not Available [facility] 06/10/2023 12:56:09 Date Recorded Heart rate Systolic blood pressure Diastolic blood pressure Provider Name and Address Organization Details Last Updated DateTime 05/10/2023 75 /min 138 mm[Hg] 72 mm[Hg] Not Available [facility] 06/10/2023 12:58:03 Date Recorded Heart rate Heart rate Systolic blood pressure Diastolic blood pressure Systolic blood pressure Diastolic blood pressure Provider Name and Address Organization Details Last Updated DateTime 80 /min 85 /min 150 mm[Hg] 79 mm[Hg] 150 mm[Hg] 68 mm[Hg] Not Available [facility] 13:01:03 Date Recorded Heart rate Systolic blood pressure Diastolic blood pressure Provider Name and Address Organization Details Last Updated DateTime 05/13/2023 83 /min 130 mm[Hg] 65 mm[Hg] Not Available [facility] 06/10/2023 13:01:02 Date Recorded Heart rate Systolic blood pressure Diastolic blood pressure Provider Name and Address Organization Details Last Updated DateTime 05/14/2023 74 /min 136 mm[Hg] 71 mm[Hg] Not Available [facility] 06/10/2023 13:03:04 Date Recorded Heart rate Systolic blood pressure Diastolic blood pressure Provider Name and Address Organization Details Last Updated DateTime 05/15/2023 73 /min 134 mm[Hg] 72 mm[Hg] Not Available [facility] 06/10/2023 13:03:05 Date Recorded Heart rate Systolic blood pressure Diastolic blood pressure Provider Name and Address Organization Details Last Updated DateTime 05/17/2023 71 /min 140 mm[Hg] 75 mm[Hg] Not Available [facility] 06/10/2023 13:04:03 Date Recorded Heart rate Systolic blood pressure Diastolic blood pressure Provider Name and Address Organization Details Last Updated DateTime 05/16/2023 75 /min 139 mm[Hg] 74 mm[Hg] Not Available [facility] 06/10/2023 13:04:07 Date Recorded Heart rate Heart rate Systolic blood pressure Diastolic blood pressure Systolic blood pressure Diastolic blood pressure Provider Name and Address Organization Details Last Updated DateTime 69 /min 67 /min 154 mm[Hg] 65 mm[Hg] 121 mm[Hg] 62 mm[Hg] Not Available [facility] 13:05:06 Date Recorded Heart rate Heart rate Systolic blood pressure Diastolic blood pressure Systolic blood pressure Diastolic blood pressure Provider Name and Address Organization Details Last Updated DateTime 69 /min 69 /min 132 mm[Hg] 74 mm[Hg] 157 mm[Hg] 77 mm[Hg] Not Available [facility] 13:05:04 Date Recorded Heart rate Systolic blood pressure Diastolic blood pressure Provider Name and Address Organization Details Last Updated DateTime 05/20/2023 73 /min 127 mm[Hg] 65 mm[Hg] Not Available [facility] 06/10/2023 13:06:01 Date Recorded Heart rate Systolic blood pressure Diastolic blood pressure Provider Name and Address Organization Details Last Updated DateTime 05/22/2023 74 /min 126 mm[Hg] 83 mm[Hg] Not Available [facility] 06/10/2023 13:06:03 Date Recorded Heart rate Systolic blood pressure Diastolic blood pressure Provider Name and Address Organization Details Last Updated DateTime 05/21/2023 79 /min 131 mm[Hg] 67 mm[Hg] Not Available [facility] 06/10/2023 13:06:05 Date Recorded Heart rate Systolic blood pressure Diastolic blood pressure Provider Name and Address Organization Details Last Updated DateTime 05/23/2023 88 /min 104 mm[Hg] 69 mm[Hg] Not Available [facility] 06/10/2023 13:07:04 Date Recorded Heart rate Systolic blood pressure Diastolic blood pressure Provider Name and Address Organization Details Last Updated DateTime 05/24/2023 78 /min 133 mm[Hg] 69 mm[Hg] Not Available [facility] 06/10/2023 13:08:03 Date Recorded Heart rate Systolic blood pressure Diastolic blood pressure Provider Name and Address Organization Details Last Updated DateTime 05/25/2023 70 /min 131 mm[Hg] 69 mm[Hg] Not Available [facility] 06/10/2023 13:09:03 Date Recorded Heart rate Heart rate Systolic blood pressure Diastolic blood pressure Systolic blood pressure Diastolic blood pressure Provider Name and Address Organization Details Last Updated DateTime 82 /min 112 /min 119 mm[Hg] 92 mm[Hg] 168 mm[Hg] 131 mm[Hg] Not Available [facility] 13:11:05 Date Recorded Heart rate Systolic blood pressure Diastolic blood pressure Provider Name and Address Organization Details Last Updated DateTime 05/29/2023 75 /min 131 mm[Hg] 64 mm[Hg] Not Available [facility] 06/10/2023 13:12:04 Date Recorded Heart rate Systolic blood pressure Diastolic blood pressure Provider Name and Address Organization Details Last Updated DateTime 05/27/2023 76 /min 143 mm[Hg] 78 mm[Hg] Not Available [facility] 06/10/2023 13:12:05 Date Recorded Heart rate Systolic blood pressure Diastolic blood pressure Provider Name and Address Organization Details Last Updated DateTime 05/30/2023 71 /min 121 mm[Hg] 61 mm[Hg] Not Available [facility] 06/11/2023 12:18:03 Date Recorded Heart rate Systolic blood pressure Diastolic blood pressure Provider Name and Address Organization Details Last Updated DateTime 05/31/2023 76 /min 135 mm[Hg] 76 mm[Hg] Not Available [facility] 06/11/2023 12:18:09 Date Recorded Heart rate Systolic blood pressure Diastolic blood pressure Provider Name and Address Organization Details Last Updated DateTime 06/04/2023 75 /min 145 mm[Hg] 71 mm[Hg] Not Available [facility] 06/11/2023 12:19:04 Date Recorded Heart rate Systolic blood pressure Diastolic blood pressure Provider Name and Address Organization Details Last Updated DateTime 06/02/2023 78 /min 114 mm[Hg] 61 mm[Hg] Not Available [facility] 06/11/2023 12:19:04 Date Recorded Heart rate Heart rate Systolic blood pressure Diastolic blood pressure Systolic blood pressure Diastolic blood pressure Provider Name and Address Organization Details Last Updated DateTime 73 /min 77 /min 114 mm[Hg] 68 mm[Hg] 145 mm[Hg] 75 mm[Hg] Not Available [facility] 12:20:03 Date Recorded Heart rate Systolic blood pressure Diastolic blood pressure Provider Name and Address Organization Details Last Updated DateTime 06/05/2023 78 /min 126 mm[Hg] 73 mm[Hg] Not Available [facility] 06/11/2023 12:20:02 Date Recorded Heart rate Systolic blood pressure Diastolic blood pressure Provider Name and Address Organization Details Last Updated DateTime 06/07/2023 84 /min 114 mm[Hg] 68 mm[Hg] Not Available [facility] 06/11/2023 12:20:06 Date Recorded Heart rate Systolic blood pressure Diastolic blood pressure Provider Name and Address Organization Details Last Updated DateTime 06/08/2023 84 /min 119 mm[Hg] 72 mm[Hg] Not Available [facility] 06/11/2023 12:21:03 Date Recorded Heart rate Systolic blood pressure Diastolic blood pressure Provider Name and Address Organization Details Last Updated DateTime 06/09/2023 75 /min 137 mm[Hg] 75 mm[Hg] Not Available [facility] 06/11/2023 12:23:05 Date Recorded Heart rate Systolic blood pressure Diastolic blood pressure Provider Name and Address Organization Details Last Updated DateTime 06/10/2023 81 /min 122 mm[Hg] 72 mm[Hg] Not Available [facility] 06/11/2023 12:23:07 Date Recorded Heart rate Heart rate Systolic blood pressure Diastolic blood pressure Systolic blood pressure Diastolic blood pressure Provider Name and Address Organization Details Last Updated DateTime 4 81 /min 76 /min 141 mm[Hg] 88 mm[Hg] 139 mm[Hg] 78 mm[Hg] Not Available [facility] 12:25:07 Date Recorded Heart rate Systolic blood pressure Diastolic blood pressure Provider Name and Address Organization Details Last Updated DateTime 06/12/2023 73 /min 127 mm[Hg] 72 mm[Hg] Not Available [facility] 06/12/2023 10:10:02 Date Recorded Body height Respiratory rate Body mass index (BMI) Body weight Heart rate Oxygen saturation Oxygen saturation in Arterial blood by Pulse oximetry Systolic blood pressure Diastolic blood pressure Provider Name and Address Organization Details Last Updated DateTime 4 162.56 cm 16 /min 41.2 kg/m2 613575. 17 g 70 /min 93 % 93 % 125 mm[Hg] 78 mm[Hg] An[facility] 4 11:22:09 Date Recorded Heart rate Heart rate Systolic blood pressure Diastolic blood pressure Systolic blood pressure Diastolic blood pressure Provider Name and Address Organization Details Last Updated DateTime 4 77 /min 80 /min 149 mm[Hg] 77 mm[Hg] 112 mm[Hg] 61 mm[Hg] Not Available [facility] 4 11:39:06 Date Recorded Heart rate Systolic blood pressure Diastolic blood pressure Provider Name and Address Organization Details Last Updated DateTime 06/14/2023 71 /min 129 mm[Hg] 75 mm[Hg] Not Available [facility] 06/15/2023 10:35:06 Date Recorded Heart rate Systolic blood pressure Diastolic blood pressure Provider Name and Address Organization Details Last Updated DateTime 06/15/2023 71 /min 113 mm[Hg] 75 mm[Hg] Not Available [facility] 06/15/2023 10:36:04 Date Recorded Heart rate Heart rate Systolic blood pressure Diastolic blood pressure Systolic blood pressure Diastolic blood pressure Provider Name and Address Organization Details Last Updated DateTime 4 75 /min 74 /min 153 mm[Hg] 69 mm[Hg] 137 mm[Hg] 69 mm[Hg] Not Available [facility] 4 11:20:04 Date Recorded Heart rate Systolic blood pressure Diastolic blood pressure Provider Name and Address Organization Details Last Updated DateTime 06/20/2023 72 /min 129 mm[Hg] 70 mm[Hg] Not Available [facility] 06/20/2023 11:20:13 Date Recorded Heart rate Systolic blood pressure Diastolic blood pressure Provider Name and Address Organization Details Last Updated DateTime 06/23/2023 76 /min 141 mm[Hg] 81 mm[Hg] Not Available [facility] 06/23/2023 12:02:07 Date Recorded Heart rate Systolic blood pressure Diastolic blood pressure Provider Name and Address Organization Details Last Updated DateTime 06/24/2023 71 /min 113 mm[Hg] 80 mm[Hg] Not Available [facility] 06/24/2023 12:15:08 Date Recorded Heart rate Systolic blood pressure Diastolic blood pressure Provider Name and Address Organization Details Last Updated DateTime 06/26/2023 70 /min 140 mm[Hg] 84 mm[Hg] Not Available [facility] 06/26/2023 13:01:06 Date Recorded Heart rate Heart rate Heart rate Systolic blood pressure Diastolic blood pressure Systolic blood pressure Diastolic blood pressure Systolic blood pressure Diastolic blood pressure Provider Name and Address Organization Details Last Updated DateTime 4 79 /min 78 /min 79 /min 142 mm[Hg] 86 mm[Hg] 175 mm[Hg] 124 mm[Hg] 135 mm[Hg] 72 mm[Hg] Not Available [facility] 4 11:55:07 Date Recorded Heart rate Heart rate Systolic blood pressure Diastolic blood pressure Systolic blood pressure Diastolic blood pressure Provider Name and Address Organization Details Last Updated DateTime 4 78 /min 77 /min 148 mm[Hg] 94 mm[Hg] 128 mm[Hg] 79 mm[Hg] Not Available [facility] 4 10:45:01 Date Recorded Heart rate Heart rate Systolic blood pressure Diastolic blood pressure Systolic blood pressure Diastolic blood pressure Provider Name and Address Organization Details Last Updated DateTime 4 71 /min 70 /min 125 mm[Hg] 105 mm[Hg] 127 mm[Hg] 67 mm[Hg] Not Available [facility] 4 12:14:10 Date Recorded Heart rate Systolic blood pressure Diastolic blood pressure Provider Name and Address Organization Details Last Updated DateTime 07/01/2023 73 /min 150 mm[Hg] 86 mm[Hg] Not Available [facility] 07/01/2023 12:14:09 Date Recorded Body height Respiratory rate Heart rate Oxygen saturation Oxygen saturation in Arterial blood by Pulse oximetry Body mass index (BMI) Body weight Systolic blood pressure Diastolic blood pressure Provider Name and Address Organization Details Last Updated DateTime 4 162.56 cm 16 /min 79 /min 93 % 93 % 40.3 kg/m2 124750. 21 g 100 mm[Hg] 66 mm[Hg] Viviana Butts [facility] 4 10:12:47 Date Recorded Body height Respiratory rate Oxygen saturation Oxygen saturation in Arterial blood by Pulse oximetry Heart rate Systolic blood pressure Diastolic blood pressure Provider Name and Address Organization Details Last Updated DateTime 4 162.56 cm 16 /min 94 % 94 % 73 /min 136 mm[Hg] 84 mm[Hg] Martha Scottandrea kilgore [place] - [facility] 4 13:09:41 Date Recorded Body mass index (BMI) Body weight Provider Name and Address Organization Details Last Updated DateTime 10/30/2023 41.2 kg/m2 435105.17 RAY Cruz [address] [place] [address],[address], [place], [address], [place] - [facility] 10/30/2023 13:13:38 Social History Question Answer Notes LastModified by Organizat ion Details LastModified Time Tobacco Smoking Status Former Smoker Shari Loza rhett, [place] - [facility] 01/22/2022 16:22:20 Do You Have An Advance Directive? Yes Surrogate Decision Maker Luis Hare Information not available 04/27/2019 What Is Your Level Of Alcohol Consumption? Moderate 1-2 Glasses Of Wine Daily [email or web address] Information not available 01/22/2022 Is Blood Transfusion Acceptable In An Emergency? Yes [email or web address] Information not available 01/22/2022 What Is Your Level Of Caffeine Consumption? Moderate 1 Cup Per Day And 3 Cups Of Diet Tea Per Day [email or web address] Information not available 01/22/2022 What Type Of Diet Are You Following? SPECIFIC [email or web address] Information not available 01/22/2022 Do You Or Have You Ever Used E-cigarettes Or Vape? Never Used Electronic Cigarettes Information not available 01/27/2019 What Was The Date Of Your Most Recent Tobacco Screening? 10/30/2023 [email or web address] Information not available 10/30/2023 What Is Your Relationship Status? [email or web address] Information not available 01/22/2022 At What Age Did You Start Smoking Tobacco? 22 [email or web address] Information not available 01/22/2022 Do You Or Have You Ever Used Smokeless Tobacco? Never Used Smokeless Tobacco Information not available 01/27/2019 How Much Tobacco Do You Smoke? No [email or web address] Information not available 01/22/2022 Do You Use Any Illicit Or Recreational Drugs? No [email or web address] Information not available 01/22/2022 How Many Years Have You Smoked Tobacco? 15 Information not available 01/22/2022 Do You Or Have You Ever Used Any Other Forms Of Tobacco Or Nicotine? No [email or web address] Information not available 09/21/2020 Sex: Female Functional Status Question Answer Note LastModified by Organization D etails LastModified Time What is your exercise level? None [email or web address] Information not available 01/22/2022 Mental Status None recorded. Family History Relationship Description Onset Age of this Age Resolved Age Notes LastModified by Organization Details LastModified Time Mother Cerebrovascu lar accident 80 possib le CVA [email or web address] Not available 12/23/2017 16:02:45 Father Old-age 90 [email or web address] Not availab le 12/23/2017 16:02:56 Medical History Condition Response Depression Y Gastrointestinal Disease Y Neurologic Disorder Cardiomyopathy Y Hyperlipidemia Y Hypertension Y Gynecological HistoryNo gynecological history recorded. Obstetrics History GPAL:G 0 P 0 0 0 0 Past Encounters Encounter ID Performer Location Encounter Start Date Encounter Closed Date Diagnosis/Indication Diagnosis SNOMED-CT Code Diagnosis ICD10 Code Diagnosis Note [id number] Reyna Almeida [facility] - OFFICE [address] [place] [address] 12/23/2017 15:33:34 12/23/2017 16:49:48 Benign essential hypertension 6750561 I10 Patient reports occasional dizziness at home. Decrease losartan to 25mg once daily. Create BP log for follow up in six weeks. Syncope 406625330 R55 No recurrent episode. Patient was evaluated in the hospital. Managed by neurologtamera hernandes Takotsubo cardiomyopathy 467584907 I51.81 Heart catherizat ion performed on 12/03/2017 revealed minimal coronary artery disease and LVEF estimated at 35-40%. On carvedilol and furosemide . Reassess LVEF in six months. Hyperlipidemia 63744048 E78.00 On statin therapy. Electrocar diogram abnormal 034272080 R94.31 Abnormal EKG. Patient underwent heart catherizat ion which revealed minimal coronary artery disease. Cerebral meningioma [address] Hinojosa. Overweight 219711611 E66 .3 Healthy diet discussed. Advised to refrain from alcohol consumptio n. [id number] Reyna Almeida [facility] OFF[facility] [address] [place], [place] [address] 7 02/03/2018 12:54:46 02/03/2018 13:26:53 Electrocardiogram abnormal 629804551 R94.31 Abnormal EKG. Patient underwent heart catherizat ion which revealed minimal coronary artery disease. Takotsubo cardiomyopathy 369603354 I51.81 Heart catherizat ion performed on 12/03/2017 revealed minimal coronary artery disease and LVEF estimated at 35-40%. On carvedilol and furosemide . Reassess LVEF in six months. Benign ess ential hypertension 7228599 I10 Patient reports occasional dizziness at home. Improved with decreased dose of losartan. Syncope 571851933 R55 No recurrent episode. Patient was evaluated in the hospital. Managed by neurologis t. Hyperlipidemia 85821790 E78.00 On statin therapy. Cerebral meningioma [address] Hinojosa. Overweight 160426569 E66 .3 Healthy diet discussed. Advised to refrain from alcohol consumptio n. Seizure disorder 2647146 02 G40.909 S/P seizure. Managed by Dr. Hinojosa. [id number] Charly [facility] MD [place] [id number] 7 04/03/2018 13:12:28 04/03/2018 14:28:06 Electrocardiogram abnormal 681398053 R94.31 Abnormal EKG. Patient underwent heart catherizat ion which revealed minimal coronary artery disease. Patient is currently at an acceptable risk from cardiac standpoint to undergo non-cardia c surgery. Monitor for volume overload. Patient evaluated by Dr Charly [facility] She is at acceptable risk to undergo surgery. Avoid volume overload Takotsubo cardiomyopathy 729763812 I51.81 Heart catherizat ion performed on 12/03/2017 revealed minimal coronary artery disease and LVEF estimated at 35-40%. On carvedilol and furosemide . Benign ess ential hypertension 5393861 I10 Patient reports occasional dizziness at home. Improved with decreased dose of losartan. Syncope 495834044 R55 No recurrent episode. Patient was evaluated in the hospital. Managed by neurologis t. Hyperlipidemia 84132036 E78.00 On statin therapy. Cerebral meningioma 1891 [address] Hinojosa. Patient is scheduled for surgical management of meningioma . Overweight 203328775 E66 .3 Healthy diet discussed. Advised to refrain from alcohol consumptio n. Seizure disorder 7991898 02 G40.909 S/P seizure. Managed by Dr. Hinojosa. [id number] Charly [facility] MD [facility] - OFFICE [address] [place] [address] [address] [place] [address] 05/05/2018 11:37:48 05/05/2018 12:12:51 Electrocardiogram abnormal 470890440 R94.31 Stable Takotsubo cardiomyopathy 164081228 I51.81 Heart catherizat ion performed on 12/03/2017 revealed minimal coronary artery disease and LVEF estimated at 35-40%. On carvedilol and furosemide . Plan echo next month Benign ess ential hypertension 5195964 I10 acceptable control blood pressure. Syncope 989151254 R55 no further syncope. Patient had a meningioma which is status post resection. Hyperlipidemia 51967867 E78.00 On statin therapy. Cerebral meningioma 1891 [address] Hinojosa. Status post surgical resection of meningioma . Overweight 271372218 E66 .3 Healthy diet discussed. Advised to refrain from alcohol consumptio n. Seizure disorder 0159439 02 G40.909 S/P seizure. Managed by Dr. Hinojosa. No further seizures status post meningioma resection. [id number] Reyna Almeida [facility] [address] [place] [address] [address] [place] [address] 01/27/2019 13:44:48 01/27/2019 15:25:14 Takotsubo cardiomyopathy 972485319 I51.81 Heart catherizat ion performed on 12/03/2017 revealed minimal coronary artery disease and LVEF estimated at 35-40%. On carvedilol and furosemide . Assess LV function with 2D echo. Electrocar diogram abnormal 672556187 R94.31 Stable Benign ess ential hypertension 3736982 I10 Acceptable control blood pressure. Syncope 383982821 R55 no further syncope. Patient had a meningioma which is status post resection. Patient reports recent dizziness while changing position.W e will decrease carvedilol to 1/2 tablet twice daily.Plan 2D echo to assess LV function.A dvised patient to increase hydration as well. Follow up with blood pressure log. Hyperlipidemia 94433090 E78.00 On statin therapy. Cerebral meningioma 1891 [address] Hinojosa. Status post surgical resection of meningioma . Overweight 305603086 E66 .3 Healthy diet discussed. Advised to refrain from alcohol consumptio n. She has gained 17lbs since last visit. Seizure disorder 5104923 02 G40.909 S/P seizure. Managed by Dr. Hinojosa. No further seizures status post meningioma resection. [id number] Charly Wallace MD [facility] - OFFICE [address] [facility] [place] [address] 04/27/2019 11:06:55 04/27/2019 11:36:59 Electrocardiogram abnormal 826447451 R94.31 Not repeated at today's visit. Takotsubo cardiomyopathy 502974076 I51.81 Heart catherizat ion performed on 12/03/2017 revealed minimal coronary artery disease and LVEF estimated at 35-40%. On carvedilol and furosemide . Most recent echocardio gram performed February 2019 revealed preserved LV function. Estimated ejection fraction 55-60 % Benign ess ential hypertension 1561577 I10 Borderline control of blood pressure. Blood pressure better controlled at home. Continue current meds.Kitty nt reports blood pressure 130/80 or less at home. Managed by primary physician. Syncope 061992522 R55 no further syncope. Hyperlipidemia 77268329 E78.00 On statin therapy. Cerebral meningioma 1891 [address] Hinojosa. Status post surgical resection of meningioma . Overweight 336116270 E66 .3 Healthy diet discussed. Advised to refrain from alcohol consumptio n. Patient will attempt to lose weight. Seizure disorder 1948135 02 G40.909 S/P seizure. Managed by Dr. Hinojosa. No further seizures status post meningioma resection. [id number] Reyna Almeida [facility] - [facility] [address] [place] [address] [address] [place] [address] 11/18/2019 12:58:51 11/18/2019 13:42:38 Essential hypertension 10026920 I10 Blood pressure elevated at today's visit.Alina ent reports acceptable control of blood pressure at home. Electrocar diogram abnormal 157730237 R94.31 Stabel/unc hanged Takotsubo cardiomyopathy 686233727 I51.81 Heart catherizat ion performed on 12/03/2017 revealed minimal coronary artery disease and LVEF estimated at 35-40%. On carvedilol and furosemide . Most recent echocardio gram performed February 2019 revealed preserved LV function. Estimated ejection fraction 55-60 %. Stable. Renew med. Syncope 271103388 R55 no further syncope. Hyperlipidemia 17024315 E78.00 On statin therapy. Cerebral meningioma 1890 [address] Hinojosa. Status post surgical resection of meningioma . Being followed up by Dr. Hinojosa. Overweight 491557800 E66 .3 Healthy diet discussed. Advised to refrain from alcohol consumptio n. Patient is unable to exercise due to orthopedic limitation s.She has modified her diet but was unable to lose weight. Seizure disorder 3896608 02 G40.909 S/P seizure. Managed by Dr. Hinojosa. No further seizures status post meningioma resection. Difficulty swallowing 28 0655673 R13.10 Reports difficulty swallowing .She is scheduled to follow up with GI. Memory impairment 313852 006 R41.3 Worsening memory impairment since meningioma resection. She will follow up with neurology regarding this. [id number] [facility] Juan Pablo [facility] - OFFICE [address] [place] [address] 06/20/2020 14:15:29 06/20/2020 14:56:49 Essential hypertension 80679781 I10 Acceptable control of blood pressure with current medication . Takotsubo cardiomyopathy 139005493 I51.81 Heart catherizat ion performed on 12/03/2017 revealed minimal coronary artery disease and LVEF estimated at 35-40%. On carvedilol and furosemide . Most recent echocardio gram performed February 2019 revealed preserved LV function. Estimated ejection fraction 55-60 %. Patient feeling well from cardiac standpoint .She is currently at an acceptable risk from cardiac standpoint to undergo non-cardia c surgery. Electrocar diogram abnormal 132691992 R94.31 Stable/unc hanged Syncope 790624696 R55 no further syncope. Hyperlipidemia 84597727 E78.00 On statin therapy. Cerebral meningioma 1890 [address] Hinojosa. Status post surgical resection of meningioma . Being followed up by Dr. Hinojosa. Memory impairment 054620 006 R41.3 Worsening memory impairment since meningioma resection. She will follow up with neurology regarding this. Seizure disorder 3008495 02 G40.909 S/P seizure. Managed by Dr. Hinojosa. No further seizures status post meningioma resection. Difficulty swallowing 28 2331547 R13.10 Resolved. Overweight 385628661 E66 .3 Healthy diet discussed. Advised to refrain from alcohol consumptio n. Patient is unable to exercise due to orthopedic limitation s.She has modified her diet but was unable to lose weight. Lost about 32lbs with diet. Knee pain 57418888 M25.5 69 Tentative plan for knee surgery. [id number] Charly Wallace MD [facility] - OFFICE [address] [place] [address] 09/21/2020 11:36:29 09/21/2020 12:26:08 Essential hypertension 96085160 I10 Patient has been taking blood pressure at home however her device failed. But has not yet been replaced. Recommend remote patient monitoring . Target blood pressure 130 over 80 or less Takotsubo cardiomyopathy 858049009 I51.81 Heart catherizat ion performed on 12/03/2017 revealed minimal coronary artery disease and LVEF estimated at 35-40%. On carvedilol and furosemide . Most recent echocardio gram performed February 2019 revealed preserved LV function. Estimated ejection fraction 55-60 %.Stable Electrocar diogram abnormal 875351157 R94.31 Stable/unc hanged Syncope 970957220 R55 no further syncope. Hyperlipidemia 15723633 E78.00 On statin therapy. Cerebral meningioma 1891 [address] Hinojosa. Status post surgical resection of meningioma . Being followed up by Dr. Hinojosa. Memory impairment 286800 006 R41.3 Worsening memory impairment since meningioma resection. She will follow up with neurology regarding this. Seizure disorder 9042090 02 G40.909 S/P seizure. Managed by Dr. Hinojosa. No further seizures status post meningioma resection. Overweight 534728518 E66 .3 Healthy diet discussed. Advised to refrain from alcohol consumptio n.Discussi on regarding weight loss Knee pain 37630609 M25.5 69 s/p knee surgery Difficulty swallowing 28 9597781 R13.10 Resolved. [id number] Charly Wallace MD [facility] - OFFICE [address] [place] [address] [address] [place] [address] 06/11/2021 11:23:58 06/11/2021 11:54:42 Hyperlipidemia 49619362 E78.00 On statin therapy.Ma naged by primary Syncope 329435320 R55 no further syncope. Takotsubo cardiomyopathy 979057540 I51.81 Heart catherizat ion performed on 12/03/2017 revealed minimal coronary artery disease and LVEF estimated at 35-40%. On carvedilol and furosemide . Most recent echocardio gram performed February 2019 revealed preserved LV function. Estimated ejection fraction 55-60 %.Stable Electrocar diogram abnormal 413214784 R94.31 Stable/unc hanged Essential hypertension 18903300 I10 Review of blood pressure reveals elevated diastolic pressure. Recommend increasing losartan to 50 mg every afternoon and 25 mg every morning. Target blood pressure 130/80 or less. Cerebral meningioma 1891 [address] Hinojosa. Status post surgical resection of meningioma . Being followed up by Dr. Hinojosa. Patient looking for Dr. Hinojosa's new office since he left his previous employer Memory impairment 023171 006 R41.3 Worsening memory impairment since meningioma resection. She will follow up with neurology regarding this. Seizure disorder 2348217 02 G40.909 S/P seizure. Managed by Dr. Hinojosa. No further seizures status post meningioma resection. Knee pain 18346829 M25.5 69 s/p knee surgery Difficulty swallowing 28 3077606 R13.10 Resolved. Morbid obesity 734000062 E66.01 Healthy diet discussed. Advised to refrain from alcohol consumptio n.Discussi on regarding weight loss [id number] RAY Guzman [place] - OFFICE [address] [facility] [address] [place] [address] 10/31/2021 14:04:21 10/31/2021 14:53:56 Essential hypertension 35515192 I10 Review of blood pressure reveals suboptimal control. Last visit it was recommende d she increase losartan to 50 mg every afternoon and 25 mg every morning although patient reports she was unaware of increase. She will start increase at this time. Target blood pressure 130/80 or less. She is having issues with [facility] , will resend referral. Hyperlipidemia 30927267 E78.00 On statin therapy. Managed by primary. Syncope 208783545 R55 No further syncope. Takotsubo cardiomyopathy 201287885 I51.81 Heart catherizat ion performed on 12/03/2017 revealed minimal coronary artery disease and LVEF estimated at 35-40%. Echocardi ogram performed February 2019 revealed preserved LV function. Estimated ejection fraction 55-60 %. Electrocar diogram abnormal 777802456 R94.31 Stable/unc hanged. Cerebral meningioma 1891 [address] Biggs. Status post surgical resection of meningioma . Memory impairment 529578 006 R41.3 Worsening memory impairment since meningioma resection. She will follow up with neurology regarding this. Seizure disorder 3124995 02 G40.909 S/P seizure. Managed by neuro. No further seizures status post meningioma resection. Morbid obesity 457248568 E66.01 Healthy diet discussed. Difficulty swallowing 28 2209740 R13.10 Resolved. [id number] Charly Wallace MD [facility] - OFFICE [address] [place] [address],[address] [place] [address] 01/22/2022 16:12:09 01/22/2022 16:31:24 Essential hypertension 94084816 I10 Review of blood pressures show mostly borderline but acceptable control. We will continue current meds. Hyperlipidemia 25703409 E78.00 On statin therapy. Managed by primary. Syncope 713365964 R55 No further syncope. Takotsubo cardiomyopathy 046047120 I51.81 Heart catherizat ion performed on 12/03/2017 revealed minimal coronary artery disease and LVEF estimated at 35-40%. Echocardio gram performed February 2019 revealed preserved LV function. Estimated ejection fraction 55-60 %. Electrocar diogram abnormal 254955166 R94.31 No ekg at todays visit Cerebral meningioma 1891 [address] Biggs. Status post surgical resection of meningioma . Memory impairment 226356 006 R41.3 Worsening memory impairment since meningioma resection. She will follow up with neurology regarding this. Seizure disorder 3202177 02 G40.909 S/P seizure. Managed by neuro. No further seizures status post meningioma resection. Morbid obesity 343456815 E66.01 Healthy diet discussed. Difficulty swallowing 28 2558100 R13.10 Resolved. Dehydration 80402271 E86 .0 I believe this patient is intravascu larly depleted. I have counseled her to increase her oral intake of water and decrease caffeine and alcohol [id number] RAY Guzman [facility] - OFFICE [address] [place] [address] 08/28/2022 13:08:28 08/28/2022 14:58:39 Essential hypertension 38595398 I10 Review of blood pressures show mostly borderline but acceptable control. We will continue current meds. Hyperlipidemia 45691566 E78.00 On statin therapy. Managed by primary. Takotsubo cardiomyopathy 412834825 I51.81 Heart catherizat ion performed 12/03/2017 revealed minimal coronary artery disease and LVEF estimated at 35-40%. Echocardio gram performed February 2019 revealed preserved LV function. Estimated ejection fraction 55-60%. Electrocar diogram abnormal 226624560 R94.31 No EKG at today's visit. Cerebral meningioma 1891 [address] Biggs. Status post surgical resection of meningioma . Memory impairment 331451 006 R41.3 Worsening memory impairment since meningioma resection. She will follow up with neurology regarding this. Seizure disorder 0858406 02 G40.909 S/P seizure. Managed by neuro. No further seizures status post meningioma resection. Morbid obesity 570578335 E66.01 Healthy diet discussed. Difficulty swallowing 28 3497150 R13.10 Resolved. Dehydration 92899184 E86 .0 Counseled to increase her oral intake of water and decrease caffeine and alcohol. Near syncope 620415210 R 55 Patient with frequent lightheade dness and one episode of near syncope. Currently undergoing neurologic evaluation . Recent blood work unremarkab le. Plan carotid US, echo and 48 hour holter monitor. Additional ly recommend patient increase hydration. [id number] RAY Guzman [facility] - OFFICE [address] [place] [address] 10/30/2022 12:50:33 10/30/2022 13:35:04 Takotsubo cardiomyopathy 063437378 I51.81 Heart catherizat ion performed 12/03/2017 revealed minimal coronary artery disease and LVEF estimated at 35-40%. Echocardio gram performed February 2019 revealed preserved LV function. Estimated ejection fraction 55-60%. Essential hypertension 76192205 I10 Review of blood pressures show mostly borderline but acceptable control. We will continue current meds. Hyperlipidemia 01844225 E78.00 On statin therapy. Managed by primary. Electrocar diogram abnormal 977126313 R94.31 No EKG at today's visit. Cerebral meningioma 1891 [address] Biggs. Status post surgical resection of meningioma . Memory impairment 333353 006 R41.3 Worsening memory impairment since meningioma resection. She will follow up with neurology regarding this. Seizure disorder 2722559 02 G40.909 S/P seizure. Managed by neuro. No further seizures status post meningioma resection. Morbid obesity 816676487 E66.01 Healthy diet discussed. Difficulty swallowing 28 9028824 R13.10 Resolved. Dehydration 98812659 E86 .0 Counseled to increase her oral intake of water and decrease caffeine and alcohol. Near syncope 544439397 R 55 Patient with frequent lightheade dness and one episode of near syncope. Underwent neurologic evaluation without obvious etiology. Recent blood work unremarkab le.Carotid US without signfiican t stenosis bilaterall y. Echo reveals preserved LV function without signfiican t valvular abnormalit ies. 48 hour holter monitor with normal sinus rhythm with rare PVCs. Patient reports her lightheade dness has improved with increased hydration. No further near syncopal episodes. Plan conservati ve management . [id number] Charly Wallace MD [facility] - OFFICE [address] [facility] [address] [place] [address] 06/12/2023 11:11:21 06/12/2023 12:32:47 Syncope 823819024 R55 No further syncope. Takotsubo cardiomyopathy 536976720 I51.81 Heart catherizat ion performed on 12/03/2017 revealed minimal coronary artery disease and LVEF estimated at 35-40%. Echocardio gram performed February 2019 revealed preserved LV function. Estimated ejection fraction 55-60 %. Patient with shortness of breath as well as some lower extremity edema.Rece nt echo ejection fraction 60% Essential hypertension 13000229 I10 Excellent control of blood pressure. Hyperlipidemia 04725565 E78.00 On statin therapy. Managed by primary. Electrocar diogram abnormal 533179109 R94.31 No EKG at today's visit. Cerebral meningioma 1891 [address] Reynolds Status post surgical resection of meningioma . Memory impairment 889969 006 R41.3 Worsening memory impairment since meningioma resection. She will follow up with neurology regarding this. Seizure disorder 3122443 02 G40.909 S/P seizure. Managed by neuro. No further seizures status post meningioma resection. Morbid obesity 457872561 E66.01 Healthy diet discussed. Difficulty swallowing 28 1301635 R13.10 Resolved. Dehydration 31475653 E86 .0 Counseled to increase her oral intake of water and decrease caffeine and alcohol. Near syncope 841469756 R 55 Patient with frequent lightheade dness and one episode of near syncope. Underwent neurologic evaluation without obvious etiology. Recent blood work unremarkab le.Carotid US without signfiican t stenosis bilaterall y. Echo reveals preserved LV function without signfiican t valvular abnormalit ies. 48 hour holter monitor with normal sinus rhythm with rare PVCs. Patient reports her lightheade dness has improved with increased hydration. No further near syncopal episodes. Plan conservati ve management . Angina pectoris 80268688 0 I20.89 Patient with exertional dyspnea concerning for microvascu lar disease. Recommend cardiac PET. BMI 41.2This patient with intermedia te cardiac risk presents for evaluation of heart disease. The patient has obesity with a BMI over 35. In view of this, medical necessity has been met for cardiac PET based on current guidelines . Obtaining a SPECT study would be inappropri ate in view of it altered specificit y in this patient population . [id number] Charly Wallace MD [facility] - OFFICE [address] [place] [address],[address] [place] [address] 07/28/2023 10:04:16 07/28/2023 10:42:05 Takotsubo cardiomyopathy 373799376 I51.81 Heart catherizat ion performed on 12/03/2017 revealed minimal coronary artery disease and LVEF estimated at 35-40%. Echocardio gram performed February 2019 revealed preserved LV function. Estimated ejection fraction 55-60 %. Patient with shortness of breath as well as some lower extremity edema.Rece nt echo ejection fraction 60%-65% Hyperlipidemia 98236633 E78.00 On statin therapy. Managed by primary. Angina pectoris 91266536 0 I20.89 Patient with exertional dyspnea concerning for microvascu lar disease. Recommend cardiac PET. BMI 41.2This patient with intermedia te cardiac risk presents for evaluation of heart disease. The patient has obesity with a BMI over 35. In view of this, medical necessity has been met for cardiac PET based on current guidelines . Obtaining a SPECT study would be inappropri ate in view of it altered specificit y in this patient population . Cardiac PET no evidence of epicardial disease however there is evidence of microvascu lar disease. Plan conservati ve management . Syncope 905066925 R55 No further syncope. Essential hypertension 28284757 I10 Patient with borderline hypotensio n. Will decrease losartan to 25 mg p.o. nightly. Electrocar diogram abnormal 334344878 R94.31 No EKG at today's visit. Cerebral meningioma 1891 [address] Reynolds Status post surgical resection of meningioma . Memory impairment 810389 006 R41.3 Worsening memory impairment since meningioma resection. She will follow up with neurology regarding this. Seizure disorder 8399563 02 G40.909 S/P seizure. Managed by neuro. No further seizures status post meningioma resection. Morbid obesity 843517930 E66.01 Healthy diet discussed. Difficulty swallowing 28 4619871 R13.10 Resolved. Dehydration 36605361 E86 .0 Counseled to increase her oral intake of water and decrease caffeine and alcohol. Near syncope 896484948 R 55 Patient with frequent lightheade dness and one episode of near syncope. Underwent neurologic evaluation without obvious etiology. Recent blood work unremarkab le.Carotid US without signfiican t stenosis bilaterall y. Echo reveals preserved LV function without signfiican t valvular abnormalit ies. 48 hour holter monitor with normal sinus rhythm with rare PVCs. Patient reports her lightheade dness has improved with increased hydration. No further near syncopal episodes. Plan conservati ve management . Obstructiv e sleep apnea of adult 8225058190 103 G47.33 Pulmonolog ist referral. Additional ly this patient had a recent pneumonia and requires pulmonary care. She is currently on home oxygen. [id number] RAY Guzman [facility] - OFFICE [address] [place] [address],[facility] [address] [place] [address] 10/30/2023 12:47:32 10/30/2023 13:24:21 Takotsubo cardiomyopathy 800605215 I51.81 Heart catherizat ion performed on 12/03/2017 revealed minimal coronary artery disease and LVEF estimated at 35-40%. Patient with shortness of breath as well as some lower extremity edema. Most recent echo ejection fraction 60%-65%. Hyperlipidemia 37098340 E78.00 On statin therapy. Managed by primary. Angina pectoris 44428562 0 I20.89 Patient with exertional dyspnea. Cardiac PET no evidence of epicardial disease however there is evidence of microvascu lar disease. Plan conservati ve management . Syncope 493924203 R55 No further syncope. Essential hypertension 50799525 I10 Patient with mildly elevated blood pressure at today's visit. Target BP 130/80 or less. At last visit patient was advised to decrease losartan to 25mg as BP had been low after recent hospitaliz ation. Patient does not recall receiving this instructio n and therefore did not decrease her losartan. In any case she reports her blood pressure has been very well-contr olled 110s to 120s systolic. Will continue current meds for now. Electrocar diogram abnormal 443345373 R94.31 No EKG at today's visit. Cerebral meningioma 1891 [address] Reynolds Status post surgical resection of meningioma . Memory impairment 551154 006 R41.3 Worsening memory impairment since meningioma resection. Follows with neurology regarding this. Seizure disorder 6208933 02 G40.909 S/P seizure. Managed by neuro. No further seizures status post meningioma resection. Morbid obesity 956342842 E66.01 Healthy diet discussed. Difficulty swallowing 28 4786419 R13.10 Resolved. Dehydration 76809717 E86 .0 Counseled to increase her oral intake of water and decrease caffeine and alcohol. Near syncope 187805091 R 55 Patient with frequent lightheade dness and one episode of near syncope. Underwent neurologic evaluation without obvious etiology. Blood work unremarkab le. Carotid US without signfiican t stenosis bilaterall y. Echo reveals preserved LV function without signfiican t valvular abnormalit ies. 48 hour holter monitor with normal sinus rhythm with rare PVCs. Patient reports her lightheade dness has improved with increased hydration. No further near syncopal episodes. Plan conservati ve management . Obstructiv e sleep apnea of adult 4967841683 103 G47.33 She is currently on home oxygen. Referred to pulmonary. Health Concerns Section Related Observation LastModified by Organization Detai ls LastModified Time None Recorded Concern Status LastModified by Organization Details LastModified Time None Recorded Advance Directives Directive Y: surrogate decision maker Luis Hare Payers Encounter Date Sequence Insurance Name Policy Number Policy Schilling Covered Member ID Schilling Member ID Guarantor Name 08/28/2022 1 [place] Silvana F Payam [id number] Silvana Payam 08/28/2022 2 [employer] OPTIONS (MEDICARE SUPPLEMENT) Silvana F Villanueva Payam [id number] Silvana Payam 10/30/2022 1 [place] Silvana F Payam [id number] Silvana Payam 10/30/2022 2 [employer] OPTIONS (MEDICARE SUPPLEMENT) Silvana F Villanueva Payam [id number] Silvana Payam 06/12/2023 1 [place] Silvana F Payam [id number] Silvana Payam 06/12/2023 2 [employer] OPTIONS (MEDICARE SUPPLEMENT) Silvana Zehra Villanueva Payam [id number] Silvana Payam 07/28/2023 1 [place] Silvana F Payam [id number] Silvana Payam 07/28/2023 2 [employer] OPTIONS (MEDICARE SUPPLEMENT) Silvana F Villanueva Payam [id number] Silvana Payam 10/30/2023 1 [place] Silvana F Payam [id number] Silvana Payam 10/30/2023 2 [employer] OPTIONS (MEDICARE SUPPLEMENT) Silvana F Villanueva Payam [id number] Silvana Payam Notes Date Note Type Note Provider Name and Address Organization Details Recorded Time 08/28/2022 text/html Pt presents to t he office today for a 6 month follow upReports frequent episodes of lightheadedness/dizzi ness. She also admits to one episode of near syncope. She additionally complains of brain fog and fatigue. Symptoms have been occurring for several weeks. She is currently undergoing workup with neurology. She presents for evaluation of cardiac etiology.Pt denies chest pain or shortness of breathPt denies pedal edema RAY Guzman [address] [place] [address],[address], [phone], [facility] - [facility] 08/28/2022 14:58:26 10/30/2022 text/html Pt is here for t est follow up.Previous complaint of lightheadedness has improved since last visitPt denies chest pain or shortness of breath.Pt denies pedal edema. RAY Guzman [address] [place] [address], [phone], [facility] 10/30/2022 13:34:51 06/12/2023 text/html Patient is here today for 6 month follow up.Patient reports having shortness of breath.Patient reports having lightheadedness and dizziness sometimes.Patient denies chest pain.Patient denies pedal edema. Charly Wallace MD [address] [place] [address], [phone], [facility] - [facility] 06/12/2023 20:40:19 07/28/2023 text/html Pt is here for hospital follow up.Patient recently hospitalized with sepsis and Klebsiella pneumonia. She is improving. Urgent recent cultures were negative. Patient underwent cardiac PET recently as well as echocardiography. Results to be discussed in assessment and plan. Charly Wallace MD [address] [place] [address], [place], [address], [facility] 07/28/2023 10:41:38 10/30/2023 text/html Patient is here today for 3 month follow up visitReports sob has improved.Denies chest pain.Average SBP 110s-120s and DBP 60s.No other complaints at this time. RAY Guzman [address] [place] [address],[address], [phone], [facility] - [facility] 10/30/2023 13:24:09 OBGyn Episode No OBEpisode recorded.
--- OUTSIDE RECORDS SUMMARY | 2024-05-30 10:30 | XMS_ITS | Data Portability ---
Author Organization [place] - [employer], [employer], [facility] Address [address] [place] [address] Care Team Providers Care Teamsite Developer Name Role Phone DEBI MATOS Primary Care Provider KARAN YAP Referring Provider [phone] ANN-MARIE KLINE Referring Provider [phone] BRENDA PROCTOR OTHER SANTA RUBIO OTHER JOSE BROWNE Primary Care Provider Assessment Encounter Date Assessment Date Assessment LastModified by Organization Details LastModified Time 08/12/2023 08/12/2023 A total of 50 minutes spent caring for this patient today including the activities marked (X) below. Total time excludes any separately reportable/billed services or activities normally performed by ancillary staff. [X] Preparing to see the patient (review of previous notes and results on file) [X] Obtaining and/or reviewing separately obtained history [X] Performing medically appropriate exam/evaluation [X] Counseling and educating the patient/family/ca regiver [X] Ordering tests or procedures [-] Referring and communicating with other health professionals (not separately reported) [X] Documenting clinical information in EHR/EMR [-] Independent interpretation of results (not separately reported) [-] Care Coordination (not separately reported) Additional notes: [email or web address] Not available 08/12/2023 16:50:23 09/30/2023 09/30/2023 A total of 30 minutes spent caring for this patient today including the activities marked (X) below. Total time excludes any separately reportable/billed services or activities normally performed by ancillary staff. [X] Preparing to see the patient (review of previous notes and results on file) [X] Obtaining and/or reviewing separately obtained history [X] Performing medically appropriate exam/evaluation [X] Counseling and educating the patient/family/ca regiver [X] Ordering tests or procedures [-] Referring and communicating with other health professionals (not separately reported) [X] Documenting clinical information in EHR/EMR [-] Independent interpretation of results (not separately reported) [-] Care Coordination (not separately reported) Additional notes: [email or web address] Not available 09/30/2023 14:03:40 11/26/2023 11/26/2023 A total of 30 minutes spent caring for this patient today including the activities marked (X) below. Total time excludes any separately reportable/billed services or activities normally performed by ancillary staff. [X] Preparing to see the patient (review of previous notes and results on file) [X] Obtaining and/or reviewing separately obtained history [X] Performing medically appropriate exam/evaluation [X] Counseling and educating the patient/family/ca regiver [X] Ordering tests or procedures [-] Referring and communicating with other health professionals (not separately reported) [X] Documenting clinical information in EHR/EMR [X] Independent interpretation of results (not separately reported) [X] Care Coordination (not separately reported) Additional notes: [email or web address] Not available 11/26/2023 12:12:51 Plan of Treatment Reminders Order Date Submit Date Provider Last Modified By Organization Details Last Modified Time Details Appointments None recorded. Lab respiratory allergen panel - [facility] 2023 024 [place] [facility], [address] [place], [address], 4 04:34:48 CBC 2023 024 [place] [facility], [address], [place], [address], 4 04:34:56 vitamin B12 2014 015 [facility] smith [facility], [address] [place], [address], 5 10:40:49 insulin like growth factor 1 (igf-I) [address] [facility], [address], [place], [address], 5 10:40:49 cortisol, free 24-hour urine lc/ms/ms [address] [facility], [address], [place], [address], 5 10:40:49 comprehensi ve metabolic panel 2014 015 [address], [address], [place], [address], 5 10:40:49 T4 free 2014 015 [address], [address], [place], [address], 5 10:40:49 thyroid stimulating hormone (TSH) 2014 015 [address], [address] [place], [address], 5 10:40:49 venipunctur e 1 2014 015 [address] [facility], [address], [place], [address], 5 10:40:49 Referral None recorded. Procedures noninvasive ear or pulse oximetry by continuous overnight monitoring (PROC) 2023 024 ANTHONY Not available 13:19:27 polysomnogr aphy, split night (PROC) - split night with bipap titration 2023 024 Ree Hairston MD, [address], [place], [address], 09:24:04 Surgeries None recorded. Imaging CT, chest, w/o contrast 2023 024 [facility], [address], [place], [address], 4 09:19:53 Medication Orders codeine 10 mg-guaifene sin 100 mg/5 mL oral liquid 2014 015 [email or web address] Not available 5 16:16:12 Patient TargetsNo targets recorded. Patient Instructions Encounter Date Encounter Id Patient Instructions Last Modified By Organization Details Last Modified Time 08/12/2023 [id number] maggy's thyroiditis: care instructions [email or web address] Not available 08/12/2023 16:49:24 pneumonia: care instructions [email or web address] Not available 08/12/2023 16:49:24 sleep apnea: car e instructions [email or web address] Not available 08/12/2023 16:49:24 -[facility] as well as records in [place] from primary care and cardiology reviewed -Please note: This note was completed using a voice recognition software. All reasonable attempts have been made to correct errors, however; any typographical, unanticipated grammatical, syntax, homophones and other interpretative errors are unintentional. Please disregard these errors. [email or web address] Not available 08/12/2023 16:51:33 09/30/2023 [id number] epworth sleepine ss scale* [email or web address] Not available 09/30/2023 14:07:22 complete PFT w/ post bronchodilator spirometry* [place] Not available 02/01/2024 04:21:33 -[facility] as well as records in [place] from primary care and cardiology reviewed -Please note: This note was completed using a voice recognition software. All reasonable attempts have been made to correct errors, however; any typographical, unanticipated grammatical, syntax, homophones and other interpretative errors are unintentional. Please disregard these errors. Not available 09/29/2023 18:37:41 11/26/2023 [id number] high cholesterol : care instructions Not available 11/26/2023 12:15:02 -[facility] as well as records in [place] from primary care and cardiology reviewed -Please note: This note was completed using a voice recognition software. All reasonable attempts have been made to correct errors, however; any typographical, unanticipated grammatical, syntax, homophones and other interpretative errors are unintentional. Please disregard these errors. [email or web address] Not available 11/26/2023 01:14:04 Reason for Referral None Reported. Results Created Date Observation Date Name Description Value Unit Range Abnormal Flag Note LastModifiedBy Organization Detail LastModifiedTime 10/21/19 15 10/28/2014 CMP, serum or plasm a glucose 105 mg/dL 65-99 high Fasti ng refer ence inter ricky Not Available [facility] [address] [place], [address], 11/17/2014 15:37:23 10/21/19 15 10/28/2014 CMP, serum or plasm a urea nitrogen (BUN) 13 mg/dL 7-25 Not Available [facility] [address], [place], [address], 11/17/2014 15:37:23 10/21/19 15 10/28/2014 CMP, serum or plasm a creatinine 0.64 mg/dL 0.60-0 .93 For patie nts >49 years of age, the refer ence limit for Creat inine is appro ximat jerson 13% highe r for peopl e ident ified as Afric an-Am marimar n. Not Available [facility] [address], [place], [address], 11/17/2014 15:37:23 10/21/19 15 10/28/2014 CMP, serum or plasm a eGFR non-afr. somali 90 mL/mi n/1.7 3m2 > or = 60 Not Available [facility] [address] [place], [address], 11/17/2014 15:37:23 10/21/19 15 10/28/2014 CMP, serum or plasm a eGFR 104 mL/mi n/1.7 3m2 > or = 60 Not Available [facility] [address] [place], [place] [address]y [address] [place], [address], 11/17/2014 15:37:23 10/21/19 15 10/28/2014 CMP, serum or plasm a BUN/creatini ne ratio NOT APPLIC ABLE (calc ) 6-22 Not Available [facility] [address] [place], [place] [address]y [address] [place], [address], 11/17/2014 15:37:23 10/21/19 15 10/28/2014 CMP, serum or plasm a sodium 141 mmol/ L 135-14 6 Not Available [facility] [address] [place], [place] [address]y [address] [place], [address], 11/17/2014 15:37:23 10/21/19 15 10/28/2014 CMP, serum or plasm a potassium 3.8 mmol/ L 3.5-5. 3 Not Available [facility] [address] [place], [place] [address]y [address] [place], [address], 11/17/2014 15:37:23 10/21/19 15 10/28/2014 CMP, serum or plasm a chloride 103 mmol/ L 98-110 Not Available [facility] [address] [place], [place] [address]y [address] [place], [address], 11/17/2014 15:37:23 10/21/19 15 10/28/2014 CMP, serum or plasm a carbon dioxide 27 mmol/ L 19-30 Not Available [facility] [address] [place], [place] [address]y [address] [place], [address], 11/17/2014 15:37:23 10/21/19 15 10/28/2014 CMP, serum or plasm a calcium 9.6 mg/dL 8.6-10 .4 Not Available [facility] [address] [place], [place] [address], [place], [address], 11/17/2014 15:37:23 10/21/19 15 10/28/2014 CMP, serum or plasm a protein, total 6.5 g/dL 6.1-8. 1 Not Available [facility] [address] [place], [place] [address]y [address], [place], [address], 11/17/2014 15:37:23 10/21/19 15 10/28/2014 CMP, serum or plasm a albumin 4.2 g/dL 3.6-5. 1 Not Available [facility] [address] [place], [place] [address]y [address] [place], [address], 11/17/2014 15:37:23 10/21/19 15 10/28/2014 CMP, serum or plasm a globulin 2.3 g/dL_ (calc ) 1.9-3. 7 Not Available [facility] [address] [place], [place] [address]y [address] [place], [address], 11/17/2014 15:37:23 10/21/19 15 10/28/2014 CMP, serum or plasm a albumin/glob ulin ratio 1.8 (calc ) 1.0-2. 5 Not Available [facility] [address] [place], [place] [address], [place], [address], 11/17/2014 15:37:23 10/21/19 15 10/28/2014 CMP, serum or plasm a bilirubin, total 0.5 mg/dL 0.2-1. 2 Not Available [facility] [address] [place], [place] [address], [place], [address], 11/17/2014 15:37:23 10/21/19 15 10/28/2014 CMP, serum or plasm a alkaline phosphatase 83 U/L 33-130 Not Available [facility] [address] [place] [address] [address] [place], [address], 11/17/2014 15:37:23 10/21/19 15 10/28/2014 CMP, serum or plasm a AST 18 U/L 10-35 Not Available [facility] [address] [place] [address] [address] [place], [address], 11/17/2014 15:37:23 10/21/19 15 10/28/2014 CMP, serum or plasm a ALT 16 U/L 6-29 Not Available [facility] [address] [place] [address], [address], 11/17/2014 15:37:23 10/21/19 15 10/28/2014 T4, free, serum T4, free 1.0 NG/dL 0.8-1. 8 Not Available [facility] [address] [place] [address], [address], 11/17/2014 15:37:24 10/21/19 15 10/28/2014 TSH, serum or plasm a TSH 2.43 mIU/L 0.40-4 .50 Not Available [facility] [address] [place] [address], [address], 11/17/2014 15:37:25 10/21/19 15 10/28/2014 vitam in B12, serum vitamin B12 715 pg/mL 200-11 00 REPOR T COMME NT: FASTI NG:NO Not Available [facility] [address] [place] [address] [address] [facility], [place], [address], 11/17/2014 15:37:26 10/21/19 15 10/28/2014 igf-1 (insu nuzhat gamez growt h facto r), serum igf I, lc/MS 129 NG/mL 34-245 Not Available [facility] [address] [facility] [place], [address], 11/17/2014 15:37:27 10/21/19 15 10/28/2014 igf-1 (insu katerine-l franco growt h facto r), serum Z score (female) 0.4 SD -2.0 - +2.0 This test was julietel dom and its perfo rmanc e mario cteri stics have been deter mined by Thierry Perez . Perfo rmanc e mario cteri stics refer to the jessica tical perfo rmanc e of the test. Not Available [facility] [address] [place], [address], 11/17/2014 15:37:27 10/21/19 15 10/28/2014 corti miah, free, 24-ho ur urine total volume 1000 mL Not Available [facility] [address] [facility] [place], [address], 11/17/2014 15:37:28 10/21/19 15 10/28/2014 corti miah, free, 24-ho ur urine cortisol, free, urine 17.8 mcg/2 4_h 4.0-50 .0 Jessica sis perfo rmed by Kimberlyn Arriaga Spect romet ry Not Available [facility] [address] [place], [address], 11/17/2014 15:37:28 10/21/19 15 10/28/2014 corti miah, free, 24-ho ur urine creatinine, urine 1.14 g/24_ h 0.63-2 .50 Not Available [facility] [address] [place], [address], 11/17/2014 15:37:28 10/24/19 24 10/25/2023 CBC WITH DIFFE RENTI AL/PL ATELE T WBC 5.1 x10e3 /uL 3.4-10 .8 normal Not Available [facility] ([facility]) [address] [facility], [place], [address], 10/25/2023 06:13:26 10/24/19 24 10/25/2023 CBC WITH DIFFE RENTI AL/PL ATELE T RBC 4.59 x10e6 /uL 3.77-5 .28 normal Not Available [facility] ([facility]) [address] [facility], [place], [address], 10/25/2023 06:13:26 10/24/19 24 10/25/2023 CBC WITH DIFFE RENTI AL/PL ATELE T hemoglobin 14.6 g/dL 11.1-1 5.9 normal Not Available [facility] ([facility]) [address] [facility], [place], [address], 10/25/2023 06:13:26 10/24/19 24 10/25/2023 CBC WITH DIFFE RENTI AL/PL ATELE T hematocrit 44.1 % 34.0-4 6.6 normal Not Available [facility] ([facility]) [address] [facility], [place], [address], 10/25/2023 06:13:26 10/24/19 24 10/25/2023 CBC WITH DIFFE RENTI AL/PL ATELE T MCV 96 fL 79-97 normal Not Available [facility] ([facility]) [address] [place], [address], 10/25/2023 06:13:26 10/24/1910/25/2023 CBC WITH DIFFE RENTI AL/PL ATELE T MCH 31.8 pg 26.6-3 3.0 normal Not Available [facility] ([facility]) [address] [place], [address], 10/25/2023 06:13:26 10/24/19 24 10/25/2023 CBC WITH DIFFE RENTI AL/PL ATELE T MCHC 33.1 g/dL 31.5-3 5.7 normal Not Available [facility] ([facility]) [address] [facility], [place], [address], 10/25/2023 06:13:26 10/24/19 24 10/25/2023 CBC WITH DIFFE RENTI AL/PL ATELE T RDW 13.4 % 11.7-1 5.4 Not Available [facility] ([facility]) [address] [facility], [place], [address], 10/25/2023 06:13:26 10/24/19 24 10/25/2023 CBC WITH DIFFE RENTI AL/PL ATELE T platelets 251 x10e3 /uL 150-45 0 normal Not Available [facility] ([facility]) [address] [facility], [place], [address], 10/25/2023 06:13:26 10/24/19 24 10/25/2023 CBC WITH DIFFE RENTI AL/PL ATELE T neutrophils 58 % not estab. normal Not Available [facility] ([facility]) [address] [facility], [place], [address], 10/25/2023 06:13:26 10/24/19 24 10/25/2023 CBC WITH DIFFE RENTI AL/PL ATELE T lymphs 30 % not estab. normal Not Available [facility] ([facility]) [address] [place], [address], 10/25/2023 06:13:26 10/24/19 24 10/25/2023 CBC WITH DIFFE RENTI AL/PL ATELE T monocytes 9 % not estab. normal Not Available [facility] ([facility]) [address] [place], [address], 10/25/2023 06:13:26 10/24/19 24 10/25/2023 CBC WITH DIFFE RENTI AL/PL ATELE T eos 2 % not estab. normal Not Available [facility] ([facility]) [address] [place], [address], 10/25/2023 06:13:26 10/24/19 24 10/25/2023 CBC WITH DIFFE RENTI AL/PL ATELE T basos 1 % not estab. normal Not Available [facility] ([facility]) [address] [place], [address], 10/25/2023 06:13:26 10/24/1910/25/2023 CBC WITH DIFFE RENTI AL/PL ATELE T neutrophils (absolute) 3.0 x10e3 /uL 1.4-7. 0 normal Not Available [facility] ([facility]) [address] [place], [address], 10/25/2023 06:13:26 10/24/19 24 10/25/2023 CBC WITH DIFFE RENTI AL/PL ATELE T lymphs (absolute) 1.5 x10e3 /uL 0.7-3. 1 normal Not Available [facility] ([facility]) [address] [place], [address], 10/25/2023 06:13:26 10/24/19 24 10/25/2023 CBC WITH DIFFE RENTI AL/PL ATELE T monocytes(ab solute) 0.5 x10e3 /uL 0.1-0. 9 normal Not Available [facility] ([facility]) [address] [place], [address], 10/25/2023 06:13:26 10/24/1910/25/2023 CBC WITH DIFFE RENTI AL/PL ATELE T eos (absolute) 0.1 x10e3 /uL 0.0-0. 4 normal Not Available [facility] ([facility]) [address] [place], [address], 10/25/2023 06:13:26 10/24/19 24 10/25/2023 CBC WITH DIFFE RENTI AL/PL ATELE T baso (absolute) 0.0 x10e3 /uL 0.0-0. 2 normal Not Available [facility] ([facility]) [address] [facility], [place], [address], 10/25/2023 06:13:26 10/24/19 24 10/25/2023 CBC WITH DIFFE RENTI AL/PL ATELE T immature granulocytes 0 % not estab. Not Available [facility] ([facility]) [address] [facility], [place], [address], 10/25/2023 06:13:26 10/24/19 24 10/25/2023 CBC WITH DIFFE RENTI AL/PL ATELE T immature grans (abs) 0.0 x10e3 /uL 0.0-0. 1 Not Available [facility] ([facility]) [address] [facility], [place], [address], 10/25/2023 06:13:26 10/24/19 24 10/24/2023 ABN OPTIO N 3 abn option 3 SPRCS One or more tests were remov ed at the reque st of the patie nt and may not be repre sente d on this repor t. As a resul t, some or all of the tests origi carlitos reque sted may not have been perfo rmed or may be repor lucas separ ately . Pleas e conta ct your patie nt regar ding any neces aguila follo w-up. Not Available [facility] ([facility]) [address] [facility], [place], [address], 10/25/2023 06:13:27 08/12/19 24 07/20/2023 XR, chest No observ ation record ed. Not Available 2023 09:29:45 08/12/19 24 07/16/2023 CT, angio gram, chest , w/ contr ast No observ ation record ed. Not Available 2023 09:31:06 08/12/19 24 07/16/2023 XR, chest No observ ation record ed. [email or web address] Not Available 2023 09:33:01 08/14/19 24 07/24/2016 polys omnog salty , split night (PROC ) No observ ation record ed. [place] [facility] [address], [place], [address], 10/21/2023 09:24:03 09/30/19 24 09/12/2023 CT, chest , w/o contr ast No observ ation record ed. [email or web address] [facility] [address], [place], [address], 09/30/2023 09:19:58 10/01/19 24 09/30/2023 nonin vasiv e ear or pulse oxime try by claudio holleyn ight monit oring (PROC ) No observ ation record ed. [email or web address] Not Available 10/01 17:16:45 10/02/19 24 09/30/2023 CPAP compl iance * No observ ation record ed. [email or web address] Not Available 2023 19:12:09 11/10/19 6 minut e walk test* No observ ation record ed. [facility] Not Available 2023 15:29:33 11/25/19 24 11/25/2023 compl ete PFT w/ post [facility] hodil ator graciela metry * No observ ation record ed. [email or web address] Not Available 2023 12:57:46 Result Notes None recorded. Problems Name Problem SNOMED Code Status Onset Date Resolution Date Notes Provider Name and Address Organization Details Recorded Time Obstructive sleep apnea syndrome 46640709 Active 2023 TAMIKO SRIVASTAVA APRN [address], [place], [address], [facility] - [facility], [facility] 13:49:21 Bacteremia caused by Gram-negati ve bacteria 361598883016 Active 2023 TAMIKO SRIVASTAVA APRN [address], [place], [address], [facility], [facility] 4 15:57:25 Pneumonia 076453538 Active 2023 TAMIKO SRIVASTAVA APRN [address], [place], [address], [facility], [facility] 4 15:57:32 Morbid obesity 153876901 Active 2023 TAMIKO SRIVASTAVA APRN [address], [place], [address], [facility], [facility] 4 15:57:40 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 TAMIKO SRIVASTAVA APRN [address], [place], [address], [facility], [facility] 4 15:58:49 Dyspnea 327538868 Active 2023 TAMIKO SRIVASTAVA APRN [address], [place], [address], [facility], [facility] 4 15:59:04 Fatigue 77550763 Active MD Antoine Benite[address], [place], [address], [facility], [facility] 5 16:16:11 Abnormal weight gain 543891527 Active MD Antoine Benitez [address], [place], [address], [facility], [facility] 5 12:48:55 Macrocytosi s 764046296 Active MD Antoine Benitez [address], [place], [address], [facility], [facility] 5 12:48:55 Tremor 65035105 Active MD Antoine Benitez [address], [place], [address], [place] [facility], [facility] 5 12:48:55 Bronchitis [id number] Jonel Kline MD [address], [place], [address], [facility], [facility] 5 16:16:12 Pure hypercholes terolemia [id number] Jonel Kline MD [address], [place], [address], [facility], [facility] 5 16:16:12 Obesity [id number] Jonel Kline MD [address], [place], [address], [facility], [facility] 5 16:16:12 Benign essential hypertensio n [id number] Jonel Kline MD [address], [place], [address], [facility], [facility] 5 16:16:12 Problem Notes None recorded. Procedures Surgical History Date Name Laterality Status Provider Name and Address Organization Details Recorded Time Cholecystectomy completed [facility] 10/20/2014 11:40:37 Joint replacement, Knee completed [facility] 10/20/2014 11:40:37 Other completed [facility] 10/20/2014 11:40:37 Other completed [facility] 10/20/2014 11:40:37 Imaging Results Imaging Date Name Status LastModified by Organization Details LastModified Time 07/20/2023 XR, chest completed Information no t available 08/12/2023 09:29:45 07/16/2023 CT, angiogram, chest, w/ contrast completed Information not available 08/12/2023 09:31:06 07/16/2023 XR, chest completed Information no t available 08/12/2023 09:33:01 07/24/2016 polysomnography, split night (PROC) completed [facility] [address], [place], [address], 10/21/2023 09:24:03 09/12/2023 CT, chest, w/o contrast completed [address] [facility] Sched[facility] [address], [place], [address], 09/30/2023 09:19:58 09/30/2023 noninvasive ear or pulse oximetry by continuous overnight monitoring (PROC) completed [email or web address] Information not available 10/02/2023 17:16:45 09/30/2023 CPAP compliance* completed [email or web address] Informat ion not available 10/12/2023 19:12:09 11/10/2023 6 minute walk test* completed [facility] Information not available 11/10/2023 15:29:33 11/25/2023 complete PFT w/ post bronchodilator spirometry* completed Information not available 11/25/2023 12:57:46 Procedure Notes None recorded. Medical Equipment None Reported. Allergies Allergen ID Allergen Name Allergen Category Reaction Reaction Severity Criticality Documentation Date Start Date Code Code System Note Provider Name and Address Organization Details Recorded Time 1331162 ciproflox acin medicatio n Not available Not available Not available 09/30/20232022 2551 RxNorm Little delaney [place] - [facility], [facility] 4 13:31:15 [id number] Cortispor in medicatio n Not available Not available Not available 10/20/2014 66156 RxNorm Kayla dleaney DC - [facility], [facility] 5 11:30:23 Medications Name Sig Start Date Stop Date Status Note LastModified by Organization Details LastModified Time losartan 50 mg tablet active Not Available Not Available No t Available celecoxib 200 mg capsule active Not Available Not Available Not Available amoxicillin 500 mg capsule active Not Available Not Available Not Available furosemide 40 mg tablet TAKE ONE TABLET BY MOUTH ONE TIME DAILY active Not Available Not Available N ot Available carvedilol 6.25 mg tablet TAKE ONE TABLET BY MOUTH TWICE A DAY active Not Available Not Available No t Available cefpodoxime 100 mg tablet TAKE 1 TABLET BY MOUTH EVERY 12 HOURS FOR 7 DAYS active Not Available Not Available N ot Available fluconazole 150 mg tablet TAKE ONE TABLET BY MOUTH ONE TIME DAILY FOR 7 DAYS active Not Available Not Available N ot Available famotidine 40 mg tablet TAKE ONE TABLET BY MOUTH ONE TIME DAILY AT BEDTIME active Not Available Not Available N ot Available propranolol ER 60 mg capsule,24 hr,extended release TAKE ONE CAPSULE BY MOUTH ONE TIME DAILY active Not Available Not Available N ot Available clobetasol 0.05 % topical cream APPLY A THIN LAYER TO THE AFFECTED AREA(S) TOPICALLLY TWO TIMES A DAY active Not Available Not Available No t Available metronidazol e 500 mg tablet TAKE ONE TABLET BY MOUTH TWICE A DAY FOR 7 DAYS active Not Available Not Available No t Available triamcinolon e acetonide 0.1 % topical cream APPLY TO AFFECTED AREA(S) TWO TIMES A DAY FOR 2 WEEKS active Not Available Not Available Not Available simvastatin 40 mg tablet active Not Available Not Available Not Available levothyroxin e 25 mcg tablet TAKE ONE TABLET BY MOUTH ONE TIME DAILY IN THE MORNING ON AN EMPTY STOMACH active Not Available Not Available No t Available clobetasol 0.05 % topical gel APPLY A THIN LAYER TO THE AFFECTED AREA(S) BY TOPICAL ROUTE TWO TIMES A DAY active Not Available Not Available Not Available hydromorphon e 2 mg tablet active Not Available Not Available Not Available primidone 250 mg tablet active Not Available Not Available Not Available prednisolone acetate 1 % eye drops,suspen winston INSTILL ONE DROP INTO EACH EYE TWICE DAILY FOR 3 WEEKS, THEN STOP active Not Available Not Available No t Available meclizine 25 mg tablet TAKE ONE TABLET BY MOUTH THREE TIMES A DAY ( IN THE MORNING, AT NOON, AND AT BEDTIME ) NEEDED FOR DIZZINESS FOR UP TO 10 DAYS active Not Available Not Available No t Available paroxetine 30 mg tablet active Not Available Not Available Not Available pantoprazole 40 mg tablet,delay ed release TAKE ONE TABLET BY MOUTH ONE TIME DAILY active Not Available Not Available N ot Available nystatin 100,000 unit/gram topical cream APPLY TO AFFECTED AREA(S) TWO TIMES A DAY active Not Available Not Available Not Available warfarin 5 mg tablet active Not Available Not Available No t Available losartan 25 mg tablet TAKE ONE TABLET BY MOUTH EVERY MORNING active Not Available Not Available No t Available oxybutynin chloride ER 5 mg tablet,exten ded release 24 hr TAKE ONE TABLET BY MOUTH ONE TIME DAILY active Not Available Not Available N ot Available omeprazole 20 mg capsule,héctor yed release Take 1 capsule every day by oral route. active Not Available Not Available No t Available codeine 10 mg-guaifenes in 100 mg/5 mL oral liquid Take 10 mL every 4 hours by oral route as needed. 2014 active Not Available Not Available Not Avai lable mupirocin 2 % topical ointment active Not Available Not Available Not Available clobetasol 0.05 % topical ointment APPLY TO VULVA AREAS UP TO TWO TIMES A DAY FOR ITCHING , THEN TAPER TO 1-2 TIMES PER WEEK active Not Available Not Available No t Available estradiol 0.01% (0.1 mg/gram) vaginal cream INSERT ONE GRAM VAGINALLY ONE TIME DAILY FOR 2 WEEKS active Not Available Not Available No t Available levofloxacin 750 mg tablet active Not Available Not Available Not Available methylpredni solone 4 mg tablets in a dose pack active Not Available Not Available No t Available ipratropium bromide 42 mcg (0.06 %) nasal spray SPRAY TWO SPRAYS IN EACH NOSTRIL TWICE DAILY active Not Available Not Available Not Available clobetasol 0.05 % scalp solution APPLY TO AFFECTED AREA(S) ON SCALP BY TOPICAL ROUTE TWO TIMES A DAY active Not Available Not Available Not Available doxycycline hyclate 100 mg tablet Take 1 tablet twice a day by oral route. 2014 active Not Available Not Available Not Avai lable lamotrigine 100 mg tablet TAKE ONE TABLET BY MOUTH TWICE A DAY active Not Available Not Available No t Available Ciprodex 0.3 %-0.1 % ear drops,suspen winston active Not Available Not Available Not Available rosuvastatin 40 mg tablet TAKE ONE TABLET BY MOUTH ONE TIME DAILY active Not Available Not Available N ot Available Pexeva 40 mg tablet active Not Available Not Available Not Available Pexeva 30 mg tablet active Not Available Not Available Not Available nitrofuranto in monohydrate/ macrocrystal s 100 mg capsule TAKE ONE CAPSULE BY MOUTH TWICE A DAY FOR 3 DAYS active Not Available Not Available No t Available selenium sulfide 2.25 % shampoo APPLY TOPICALLY TO WET SCALP ONCE WEEKLY, WORK INTO A FULL LATHER, LEAVE ON FOR 2-3 MINUTES, RINSE THOROUGHLY, AND THEN PAT DRY active Not Available Not Available No t Available Calcium 500 + D 1000mg active Not Available Not Available Not Available hydrochlorot hiazide 12.5 mg tablet active Not Available Not Available No t Available cholecalcife rol (vitamin D3) 50 mcg (2,000 unit) capsule TAKE 1 CAPSULE BY MOUTH EVERY DAY active Not Available Not Available No t Available OxyContin 10 mg tablet,crush resistant,ex tended release active Not Available Not Available Not Available Vitals Date Recorded Respiratory rate Body weight Body height Body mass index (BMI) Heart rate Body temperature Systolic blood pressure Diastolic blood pressure Provider Name and Address Organization Details Last Updated DateTime 5 15 /min 870169. 34343 g 162.56 cm 37.9 kg/m2 88 /min 98.4 [degF] 134 mm[Hg] 80 mm[Hg] Kayla Art [facility], [facility] 5 11:30:23 Date Recorded Body height Respiratory rate Body weight Body mass index (BMI) Body temperature Heart rate Systolic blood pressure Diastolic blood pressure Provider Name and Address Organization Details Last Updated DateTime 5 162.56 cm 14 /min 045354. 70300 g 38.4 kg/m2 98.2 [degF] 94 /min 120 mm[Hg] 80 mm[Hg] Kayla Art [facility], [facility] 5 15:23:01 Date Recorded Body height Body mass index (BMI) Body weight Heart rate Oxygen saturation Oxygen saturation in Arterial blood by Pulse oximetry Inhaled oxygen flow rate Systolic blood pressure Diastolic blood pressure Provider Name and Address Organization Details Last Updated DateTime 4 162.56 cm 41.2 kg/m2 935612. 17 g 73 /min 90 % 90 % 2 L/min 131 mm[Hg] 109 mm[Hg] Natalia Long [facility], [facility] 4 16:02:25 Date Recorded Body height Body mass index (BMI) Body weight Heart rate Oxygen saturation Oxygen saturation in Arterial blood by Pulse oximetry Systolic blood pressure Diastolic blood pressure Provider Name and Address Organization Details Last Updated DateTime 4 162.56 cm 42.1 kg/m2 268320. 13 g 71 /min 93 % 93 % 125 mm[Hg] 82 mm[Hg] Little Lira [facility], [facility] 4 13:30:52 Social History Question Answer Notes LastModified by Organizat ion Details LastModified Time Tobacco Smoking Status Former Smoker ISA Rankin - [facility], [facility] 08/12/2023 16:03:57 What Is Your Level Of Alcohol Consumption? Occasional Information not available 08/12/2023 How Many Times Per Week Do You Consume Alcohol? 5-7 Times Per Week Information not available 08/12/2023 When Did You Quit Smoking? 16+yearssincel astcigarette Information not available 08/12/2023 Alcohol Use 1-2 Per Day [email or web address] Informatio n not available 10/20/2014 Do You Smoke? No Information not available 08/12/2023 Year Quit Tobacco Use 50 Years Ago Information not available 08/12/2023 What Was The Date Of Your Most Recent Tobacco Screening? 08/12/2023 Information not available 08/12/2023 Have You Ever Been Counseled For Unhealthy Alcohol Use? No Information not available 08/12/2023 At What Age Did You Start Smoking Tobacco? 20 Information not available 08/12/2023 Do You Use Any Illicit Or Recreational Drugs? No Information not available 08/12/2023 How Many Years Have You Smoked Tobacco? 10 Information not available 08/12/2023 Do You Or Have You Ever Used Any Other Forms Of Tobacco Or Nicotine? No Information not available 08/12/2023 Sex: Female Functional Status Question Answer Note LastModified by Organizat ion Details LastModified Time What is your exercise level? Occasional [email or web address] Information not available 10/20/2014 Mental Status None recorded. Family History Relationship Description Onset Age of this Age Resolved Age Notes LastModified by Organization Details LastModified Time Mother Cerebrovascu lar accident [email or web address] Not available 16:16:35 Father Depressive disorder [email or web address] Not available 2014 16:16:35 Father Hypertensive disorder [email or web address] Not available 2014 16:16:35 Sister Carcinoma in situ of skin [email or web address] Not available 16:16:35 Sister Polyp of colon [email or web address] Not available 2014 16:16:35 Medical History Condition Response Back pain Y High blood pressure Y Gallbladder disease Y Other Y Thyroid Disease Y Arthritis Y Falls Y Alcohol Overuse Y Anxiety/Stress Y Depression Y High Cholesterol Y Colon Polyps Y GERD/Ulcer Y Headaches/Migraines Y Chicken Pox Y Gynecological HistoryNo gynecological history recorded. Obstetrics History GPAL:G 0 P 0 0 0 0 Past Encounters Encounter ID Performer Location Encounter Start Date Encounter Closed Date Diagnosis/Indication Diagnosis SNOMED-CT Code Diagnosis ICD10 Code Diagnosis Note [id number] Kayla Art [facility] [address] [address] [place] [address] 10/20/2014 11:13:19 10/20/2014 12:30:35 Fatigue 76033156 R/O hypothyroi dism. Abnormal weight gain 730777587 Will r/o Acromegaly and Inessa's Macrocytosis 525885716 W e will R/O Vit. B12 def. Tremor 11181693 Most likely Familiar Tremor, however she will discuss with Dr. Hinojosa. [id number] Ann-Marie Kline MD [facility] [address] [place] [address] 11/10/2014 15:13:32 11/10/2014 16:00:58 Fatigue 88817382 most likely due to stress, we have ruled out Thyroid disease. Bronchitis 24869439 Coug h does not allow her to sleep. She will take a cough syrup Pure hypercholesterolemia 221006927 On simvastati n. Obesity 693431506 With a BMI of 38.4. We will try Contrave if it is OK with Dr Hinojosa. Benign ess ential hypertension 5398016 Under control. [id number] TAMIKO SRIVASTAVA APRN [facility] [id number] [facility] [place] [address] 08/12/2023 15:42:44 08/13/2023 14:42:40 Obstructive sleep apnea syndrome 99525342 G47.33 History of ANUSHA, non compliant on BiPAP, diagnosed with Dr. Hairston 5 years ago-Suspec lucas in patient with snoring, witnessed apneas and nonrefresh ing sleep with a history of sleep apnea-We discussed nature/pat hophysiolo gy of sleep apnea, risk factors, risks of untreated sleep apnea including but not limited to cardiac arrhythmia s, heart attack, stroke, early dementia and .-I will try and obtain her previous sleep study done at Dr. Hairston's office and I also have asked her to bring in her BiPAP machine to her follow-up visit so I can review her compliance . Pending her compliance data we will determine whether or not she needs to go to the sleep lab. I have placed orders for split-nigh t with BiPAP titration just in case. Bacteremia caused by Gram-negative bacteria 8712910234 08 A41.50 Klebsiella pneumonia bacteremia from community- acquired pneumonia, treated with cefepime while inpatient. Blood cultures were negative at discharge. Discharged home on cefpodoxim e for another 7 days. Pneumonia 773402329 J18. 9 CAP treated with cefepime while inpatient. At discharge blood cultures were clean. Discharged home on cefpodoxim e for another 7 days. Morbid obesity 298977256 E66.01 Recommend to increase physical activity, weight loss and avoid further weight gain Maggy thyroiditis 21 521622 E06.3 Chronic, stable Managed by primary care Dyspnea 157950727 R06.00 Likely secondary to diastolic heart failure and pneumonia as well as obesity and deconditio kietRoxieelke [facility] 2 L nasal cannulaShe will be air traveling in the beginning of September and needs a portable concentrat or, orders were sent to [facility].Wi ll discuss need for pulmonary function testing at her follow-up visit in 6 weeks once her pneumonia is radiologic ally resolved.C ontinue with Lasix, managed by Dr. Yap, cardiology Detailed discussion had regarding need to monitor her salt and fluid intake [id number] TAMIKO SRIVASTAVA APRN [facility] [place] [id number] [facility],[address] [address] 09/30/2023 13:23:06 10/11/2023 17:05:15 Obstructive sleep apnea syndrome 89713877 G47.33 Moderate ANUSHA with AHI 20.5 on PSG in 2017 with a REM AHI of 40 Plan:-Comp liance reviewed. She demonstrat es excellent compliance , good tolerance and is benefiting from its use-Contin ue BiPAP 16/12 cmH2O, easy breathe on-Fullfac e mask-Order sent to [facility] for new supplies-W ill also obtain overnight pulse oximetry on her BiPAP to assess need to bleed oxygen into her BiPAP machine-Av oid alcoholic beverages, sedatives/ pain medication s if possible. Alcohol and sedatives can worsen your sleep apnea.-Enc ourage weight loss and avoid further weight gain.-Alina ent was cautioned to avoid activities which require consistent vigilance, such as driving or operating heavy machinery, if somnolent Dyspnea 801244351 R06.00 Likely secondary to diastolic heart failure, obesity and deconditio chuck Plan:-Cont inue oxygen at 2L/NC as needed to keep SpO2 90% or greater-Ar range for pulmonary function testing now her pneumonia is resolved.- Continue with Lasix, managed by Dr. Yap, cardiology -We again reviewed importance of monitoring her salt and fluid intake-Haim l check RAST and CBC Bacteremia caused by Gram-negative bacteria 6550059432 08 A41.50 RESOLVED:K lebsiella pneumonia bacteremia from community- acquired pneumonia, treated with cefepime while inpatient. Blood cultures were negative at discharge. Discharged home on cefpodoxim e for another 7 days. Pneumonia 126762144 J18. 9 RESOLVED:- CAP treated with cefepime while inpatient. At discharge blood cultures were clean. Discharged home on cefpodoxim e for another 7 days. -[facility]23 showed resolution of previously noted infiltrate s with minimal left lower lobe atelectasi s and no other acute findings. Morbid obesity 372017178 E66.01 Recommend to increase physical activity, weight loss and avoid further weight gain Maggy thyroiditis 21 015403 E06.3 Chronic, stable Managed by primary care [id number] Lc Greco MD [address] [address] 11/26/2023 11:26:40 11/26/2023 16:53:01 Obstructive sleep apnea syndrome 67871849 G47.33 Chronic and stable Moderate ANUSHA with AHI 20.5 on PSG in 2017 with a REM AHI of 40 Most recent download with 90% total compliance 40% for compliance Usage is 3 hours and 29 minutes She is on BiPAP 08/03 AHI is 2.2 and leak is at 48.4 L/min Dyspnea 013047719 R06.00 Chronic stable Has shortness of breath secondary to obesity and deconditio chuck and history of diastolic heart failure She has oxygen that she uses as needed No evidence of airflow obstructio n noted on the PFT yesterday Pneumonia 359414794 J18. 9 Chronic and stable I reviewed her CT from August which showed resolution of the infiltrate s Morbid obesity 766634966 E66.01 Chronic stable Continue with weight loss She likely has concomitan t obesity hypoventil ation syndrome Maggy thyroiditis 21 699935 E06.3 Chronic and stable She is on levothyrox ine 25 mcg daily Essential hypertension 85243610 I10 Chronic and stable She is on carvedilol 6.25 mg twice a day, losartan 50 mg daily Gastroesop hageal reflux disease without esophagitis 873496352 K21.9 Chronic and stable She is on pantoprazo le 40 mg daily Hyperlipidemia 96615336 E78.5 Chronic and stable She is on rosuvastat in 40 mg daily Health Concerns Section Related Observation LastModified by Organization Detai ls LastModified Time None Recorded Concern Status LastModified by Organization Details LastModified Time None Recorded Advance Directives Directive None Recorded Payers Encounter Date Sequence Insurance Name Policy Number Policy Schilling Covered Member ID Schilling Member ID Guarantor Name 10/20/2014 1 [place] Silvana Shahid Payam [id number] Silvana Payam 10/20/2014 2 [facility] OPTION - PLAN F (MEDICARE SUPPLEMENT) Silvana Pringlezier Payam [id number] Silvana Payam 11/10/2014 1 [place] Silvana F Payam [id number] Silvana Payam 11/10/2014 2 [employer] OPTION - PLAN F (MEDICARE SUPPLEMENT) Silvana Pringlezier Payam [id number] Silvana Payam 08/12/2023 1 [place] Silvana F Payam [id number] Silvana Payam 08/12/2023 2 [employer] OPTION - PLAN F (MEDICARE SUPPLEMENT) Silvana Villanueva Payam [id number] Silvana Payam 09/30/2023 1 [place] Silvana F Payam [id number] Silvana Hare 09/30/2023 2 [facility] OPTION - PLAN F (MEDICARE SUPPLEMENT) Silvana Hare [id number] Silvana Hare 11/26/2023 1 [place] Silvana Hare [id number] Silvana Hare 11/26/2023 2 [facility] OPTION - PLAN F (MEDICARE SUPPLEMENT) Silvana Hare [id number] Silvana Hare Notes Date Note Type Note Provider Name and Address Organization Details Recorded Time 5 text/html I have been asked by Dr. Tracey to see Mrs. Hare for thyroid evaluation, patient feels tired for one year, it is after she had a knee replacement in April. also weight gain Past Medical Hx of HTN for 5-10 years. , Hypercholesteronemia for 10 years, No Hx of radiation of face and neck, she had anxiety on Pexeva for 30 years ; The patient is a very pleasant 73 years old lady. Patient said her head shakes, for 3-4 years. Past Surgical Hx: 2 ears surgeries, sinus sx, Gallbladder in , breast lift, chin lift eye lift. Fam Hx: Mother and sister with Thyroid problems, No cancer of the thyroid, no DM, father: 89 of old age, mother: 80 years old of CVA, sibblings: Social Hx: non smoker, she drinks 20 glasses of alcohol. The patient feels: exercise: try to use the pool and bike and golf; weight 25 lbs in the last year. She remarried 2 years ago. She is under stress due to fam. problems. She said she has change the size of her rings and shoes. I review bertram lab tests: Mild hypernatremia and mild Macrocytosis. Ann-Marie Kline MD [address] [facility] [address], [place], [address], [facility] - [facility], [facility] 10/20/2014 12:51:12 5 text/html Patient comes for f/u of HTN, Hypercholesteronemia, Hypothyroidism, Osteoporosis, patient is not feeling well: she feels tired ,can not walk more than 2 blocks, she had a heart ev and it was negative; weight is stable, we discuss the lab tests: IGF-1 129, TFT: WNL Vit B12 was: 715 Patient brings records of BS: Ann-Marie Kline MD [address], [place], [address], [employer] 11/10/2014 16:16:57 4 text/html She is here for hospital follow-up and management of sleep apnea, accompanied by her husbandShe was recently hospitalized at [facility] with acute pulmonary edema in the setting of non-ST elevation myocardial infarction. She also had acute diastolic heart failure that was treated conservatively. Cardiology did evaluate the patient and recommended conservative treatment as the patient was also gram-negative bacteremic and not the best time to be more aggressive in terms of ischemic workup. She had Klebsiella pneumonia bacteremia from community-acquired pneumonia, treated with cefepime while inpatient. At discharge blood cultures were clean. Discharged home on cefpodoxime for another 7 days. She was discharged on home oxygen at 2 L/min. She will continue aspirin + atorvastatin + carvedilol + Lasix 40 mg daily.Oxygen at 2L/NC at home since dischargeShort of breath with exertion, mostly sedentary, in wheelchair today, uses rollator at homeNo coughDenies chest painSmoked 5 years in collegeDoes not use any inhalers at homeDenies any asthma historyNo cancer history Sleep:She has a history of ANUSHA, prior to her admission she was not compliant with BiPAP, had not used in probably 2 years Sleep study was done about [address] Hairston's officeShe goes to bed at 11 pm, falls asleep in minutes, takes 1.5mg of melatoninHas nighttime awakenings 1-2x to use bathroomShe wakes at 10 amDoes not feel refreshed upon wakingShe has daytime fatigue and sleepinessDaytime naps most days for about an hourSnoring without BiPAP on per husbandWitnessed apneasHx of vivid dreamsDenies restless legs TAMIKO SRIVASTAVA, [employer] [address], [place], [address], [facility], [place] 08/12/2023 16:53:28 4 text/html She is here for pneumonia and sleep apnea follow-up, accompanied by her She feels her shortness of breath is better since last visitShe is fairly sedentary, currently in wheelchair, uses rolling walker at homeWearing oxygen at 2L/NCShe does check her oxygen at home and she is always staying at 90% or aboveDenies cough or hemoptysisDenies chest painDenies nasal congestion or PND Hospitalized at [facility] in June with acute pulmonary edema/diastolic heart failure in the setting of non-ST elevation myocardial infarction. She also had Klebsiella pneumonia bacteremia from community-acquired pneumonia, treated with cefepime while inpatient. Discharged home on cefpodoxime x7 days. Discharged on home oxygen at 2 L/min. Sleep:She was diagnosed with ANUSHA by PSG in 2016 but had been noncompliant with use for the past 2 years up until her hospital discharge in JuneShe goes to bed at 11 pm, falls asleep in minutes, takes 1.5mg of melatoninHas nighttime awakenings 1-2x to use bathroomShe wakes at 10 amFeels mostly refreshed upon wakingHer daytime fatigue and sleepiness is betterShe is not taking naps daily like she previously wasOccasional snoring with BiPAP on 30-day compliance reviewed: date ending 09/29/2426 days used40% 4 hour useResidual AHI: 2.295th percentile leak of 48.4 TAMIKO SRIVASTAVA, [employer] [address] [address], [place], [address], [facility] - [facility], [facility] 09/30/2023 14:46:25 4 text/html This visit was conducted via our telehealth video visit service. Provider location: {{in office* at home If other - freetype location}} Patient location: {{at home address on file* in provider's office If other - freetype location}} Visit Participants in addition to provider and patient: {{none* free type names of additional participants & their relationship to patient}} Patient has given verbal consent to telehealth visit. Use [employer] on the [employer] as patient was unable to come into the office or use the link that we provided for the video visit Doing well She is compliant with her BiPAP although sometimes she will not use it for the total of 4 hours Residual AHI is 2.2 Usage is about 3 hours and 22 minutes She uses oxygen entrained in the BiPAP Pulmonary function testing done yesterday does not reveal any evidence of airflow obstruction and she has normal lung volumes and a normal corrected diffusion capacity No cough, phlegm or wheezing Chest CT from August showed resolution of her prior infiltrate She does not use oxygen with exertion She is up-to-date with her vaccinations Lc Greco MD [address] [id number], [place], [id number], [facility] - [facility] Physician [facility], [facility] 11/26/2023 12:16:16 OBGyn Episode No OBEpisode recorded.
--- OUTSIDE RECORDS SUMMARY | 2024-05-30 10:30 | XMS_ITS | Data Portability ---
Author Organization [place] [facility] [employer] [facility] Address [address] [place] [address] Care Team Providers Care Mica Spreader Name Role Phone DEBI MATOS Primary Care [...] record ed. Patient TargetsNo targets recorded. Patient Instructions Encounter Date Encounter Id Patient Instructions Last Modified By Organization Details Last Modified Time 09/15/2023 [id number] The member was located in {{[facility]}} at the time of this call. Miscellaneous RPM visit. During the communication today the following member needs were addressed: {{}}CONTACTED PT FOR NURSE VISIT. PT SAID SHE WOULD LIKE TO BE TEXTED FOR ANY UPCOMING APPTS BECAUSE SHE IS OFTEN SLEEPING AND DOESN'T ANSWER THE PHONE VERY OFTEN. WILL FOLLOW UP WITH PT SCHEDULED. Was there a need during this visit to complete a Member Service Request? {{Yes No*}}. If yes, provide a summary of the request. Total time spent in service of member: {{ 10#}} [email or web address] Not available 09/15/2023 15:29:17 09/29/2023 [id number] General Information During the time of {{telephonic* vide o call}} member was located in {{[facility] tra veling outside state of [place]}}. Member is enrolled in {{diabetes hyperte nsion* diabetes & hyptertension}} program. During the call the nurse reviewed patients blood pressure and was able to address patient's concerns and/or questions. Clinical Picture Average BP Over last {{7 30*}} days: Systolic {{ 125#}} Diastolic {{ 70#}} . Based on member's readings and the parameters set by [facility] LEARNING CENTER COORDINATOR, member's blood pressure is {{low at goal high}}. At this time member {{confirms denies} } symptoms throughout the call. Nursing Review of Systems Symptoms present during the encounter {{abnormal biometric readings chest pain sob severe CLARK confusion or altered consciousness loss of consciousness one- sided weakness or facial droop seizure maribel re vomiting severe diarrhea inability to eat or drink suicidal or homicidal thoughts or actions }} {{abnormal biometric readings chest pain sob severe CLARK confusion or altered consciousness loss of consciousness one- sided weakness or facial droop seizure maribel re vomiting severe diarrhea inability to eat or drink suicidal or homicidal thoughts or actions }} {{abnormal biometric readings chest pain sob severe CLARK confusion or altered consciousness loss of consciousness one- sided weakness or facial droop seizure maribel re vomiting severe diarrhea inability to eat or drink suicidal or homicidal thoughts or actions }} Last 7 Days of readings 09/29/2023, 7:35:45 AM EDT 118 71 72 09/28/2023, 3:53:21 PM EDT 109 61 74 09/28/2023, 12:03:26 PM EDT 134 78 72 09/27/2023, 11:15:48 AM EDT 133 65 80 09/26/2023, 11:54:38 AM EDT 112 60 76 09/25/2023, 12:06:48 PM EDT 120 62 80 09/24/2023, 11:58:52 AM EDT 111 64 69 09/24/2023, 10:22:55 AM EDT 111 58 77 09/23/2023, 11:12:46 AM EDT 129 75 78 09/22/2023, 10:30:06 AM EDT 132 66 78 Follow-up Based on the symptoms endorsed by member, a [facility] provider follow-up visit has been recommended in {{Same Day 1-week 2-weeks 3-weeks 4-weeks N /A-No symptoms*}}. Member {{is in agreement* is not in agreement}} with this plan. Member {{has requested has not requested*}} records to be sent to their PCP. Member has been advised to connect with their PCP for any non urgent symptoms or concerns. Member was advised to call 911 or go to the emergency room if experiencing any urgent or life threatening symptoms or concerns. Nursing Progress Note brief synopsis of interventions Patient goals were {{created revised* }} and reviewed in the call. A medication reconciliation was {{performed* not performed (due to member does not have medication list ready)}} Appointment confirmation Members next [place] appointment is confirmed on {{Date 10/12#}} between {{Time 3#}} and {{Time 4#}} All members must have an LEARNING CENTER COORDINATOR visit at minimum every 6 months while active, or when meeting escalation criteria. A [facility] LEARNING CENTER COORDINATOR follow-up visit {{was scheduled today was offered today and the member refused was not offered/needed today}}. Members next [facility] LEARNING CENTER COORDINATOR follow-up appointment is confirmed on {{Date}} between {{9:00 AM - 11:00 AM ET 11:00 AM - 2:00 PM ET 2:00 PM - 5:00 PM ET}}. Was there a need during this visit to complete a Member Service Request? {{Yes No*}}. If yes, provide a summary of the request. Total time spent in the care of the member: {{ 15#}} minutes Please refer to member's care plan for additional details. [email or web address] Not available 09/29/2023 16:06:52 10/13/2023 [id number] General Information Member was contacted via interactive {{telephonic outreach* video call}} and was located in {{[facility]* [facility] a [facility] outside our service area}}. Call recording disclaimer {{was* was not}} given to member, and {{was* was not}} verified. Member is enrolled in diabetes and hypertension program. During the call the nurse was able to address member's {{concerns questio ns questions and concerns no questions or concerns voiced*}}. Clinical Picture Average BP Over last 30 days: Systolic Average: 122 Diastolic Average: 67 Based on member's readings and the parameters set by [facility] LEARNING CENTER COORDINATOR, member's blood pressure is {{low at goal* high}}. Average BG Over last 30 days: non compliant doesnt want to take Based on member's readings and the parameters set by provider, member's blood glucose is {{low at goal high}}. At this time member {{confirms denies* }} symptoms throughout the call. Nursing Review of Systems {{Member asymptomatic at time of call* abnormal biometric readings chest pain sob severe CLARK confusion or altered consciousness loss of consciousness one- sided weakness or facial droop seizure maribel re vomiting severe diarrhea inability to eat or drink suicidal or homicidal thoughts or actions }} {{abnormal biometric readings chest pain sob severe CLARK confusion or altered consciousness loss of consciousness one- sided weakness or facial droop seizure maribel re vomiting severe diarrhea inability to eat or drink suicidal or homicidal thoughts or actions }} {{abnormal biometric readings chest pain sob severe CLARK confusion or altered consciousness loss of consciousness one- sided weakness or facial droop seizure maribel re vomiting severe diarrhea inability to eat or drink suicidal or homicidal thoughts or actions }} Last 7 Days of BP readings 10/13/2023, 11:57:12 AM EDT 100 53 72 10/13/2023, 11:52:30 AM EDT 94 55 74 10/12/2023, 12:52:40 PM EDT 101 65 65 10/11/2023, 12:30:56 PM EDT 125 67 71 10/10/2023, 12:24:40 PM EDT 118 65 75 10/09/2023, 10:54:10 AM EDT 108 65 72 10/08/2023, 11:16:14 AM EDT 130 67 74 10/07/2023, 9:50:23 PM EDT 115 69 66 10/07/2023, 10:31:47 AM EDT 116 62 68 10/07/2023, 10:25:49 AM EDT 100 70 87 Last 7 Days of BG readings n/a Follow-up Based on {{symptoms endorsed by member abnormal biometric readings symptoms endorsed by member & abnormal biometric readings normal biometric readings and no symptoms endorsed by member*}} a [facility] LEARNING CENTER COORDINATOR follow-up visit {{has has not*}} been recommended. Member {{is in agreement* is not in agreement}} with this plan. Member {{has requested has not requested*}} records to be sent to their PCP. Member {{requested has not requested*}} supplies at time of visit. Supplies requested by member {{test strips test strips and lancets test strips, lancets and control solution lancets only control solution only n/a}}. Member has been advised to connect with their PCP for any non urgent symptoms or concerns. Member was advised to call 911 or go to the emergency room if experiencing any urgent or life threatening symptoms or concerns. Nursing Progress Note Clinical Needs Addressed During Call / Education Provided During Call / Clinical Coaching Provided During Call (synopsis of what was discussed during the call) pt not feeling well today was about to lay down at time of call. briefly went over readings. advised to see pcp if persists with low bp. pt not taking bg. Patient goals were {{created revised reviewed*}} during the call. Please refer to member's care plan for additional details. A medication reconciliation was {{performed not performed*}}. If not performed, please state the reason why - {{ med list unavailable#}}. A Member Service Request {{was was not*}} completed during this visit. Details of request - {{}}. Appointment Confirmation Members next [place] appointment is confirmed on - 10/27/2023 3:00 - 4:00 PM EDT All members must have an LEARNING CENTER COORDINATOR visit at minimum every 6 months while active, or when meeting escalation criteria. A [facility] LEARNING CENTER COORDINATOR follow-up visit {{was scheduled today was offered today and the member refused was not offered/needed today* is already scheduled}}. Members next [facility] LEARNING CENTER COORDINATOR follow-up appointment {{has not been scheduled* is on}} {{}} between {{9:00-11:00 AM 11:00-2:00 PM 2:00-5:00 pm}}. Total time spent in the care of the member: {{ 15#}} minutes [email or web address] Not available 10/13/2023 16:08:10 10/27/2023 [id number] General Information Member was contacted via interactive {{telephonic outreach* video call}} and was located in {{[facility]* [facility] a state outside our service area}}. Call recording disclaimer {{was* was not}} given to member, and {{was* was not}} verified. Member is enrolled in hypertension program. During the call the nurse was able to address member's {{concerns questio ns questions and concerns no questions or concerns voiced*}}. Clinical Picture Average BP Over last 30 days: Systolic {{ 119#}} Diastolic {{ 67#}} Based on member's readings and the parameters set by [facility] LEARNING CENTER COORDINATOR, member's blood pressure is {{low at goal* high}}. At this time member {{confirms denies* }} symptoms throughout the call. Nursing Review of Systems {{Member asymptomatic at time of call abnormal biometric readings chest pain sob severe CLARK confusion or altered consciousness loss of consciousness one- sided weakness or facial droop seizure maribel re vomiting severe diarrhea inability to eat or drink suicidal or homicidal thoughts or actions }} {{abnormal biometric readings chest pain sob severe CLARK confusion or altered consciousness loss of consciousness one- sided weakness or facial droop seizure maribel re vomiting severe diarrhea inability to eat or drink suicidal or homicidal thoughts or actions }} {{abnormal biometric readings chest pain sob severe CLARK confusion or altered consciousness loss of consciousness one- sided weakness or facial droop seizure maribel re vomiting severe diarrhea inability to eat or drink suicidal or homicidal thoughts or actions }} Last 7 Days of BP readings 10/27/2023, 10:57:35 AM EDT 123 78 73 10/26/2023, 11:01:36 AM EDT 131 69 73 10/25/2023, 12:05:39 PM EDT 120 64 88 10/24/2023, 10:47:18 AM EDT 124 71 78 10/23/2023, 11:40:32 AM EDT 111 65 75 10/23/2023, 11:34:39 AM EDT 115 69 66 10/23/2023, 11:31:16 AM EDT 95 64 75 10/22/2023, 11:05:23 AM EDT 127 74 82 10/21/2023, 12:22:47 PM EDT 117 75 76 10/20/2023, 11:18:40 AM EDT 131 67 73 Follow-up Based on {{symptoms endorsed by member abnormal biometric readings symptoms endorsed by member & abnormal biometric readings normal biometric readings and no symptoms endorsed by member*}}, a [facility] LEARNING CENTER COORDINATOR follow-up visit {{has has not*}} been recommended. Member {{is in agreement* is not in agreement}} with this plan. Member {{has requested has not requested*}} records to be sent to their PCP. Member has been advised to connect with their PCP for any non urgent symptoms or concerns. Member was advised to call 911 or go to the emergency room if experiencing any urgent or life threatening symptoms or concerns. Nursing Progress Note Clinical Needs Addressed During Call / Education Provided During Call / Clinical Coaching Provided During Call (synopsis of what was discussed during the call) PT ENGAGED DURING CALL. PT REPORTED THAT THE WAS HEADED OUT DURING CALL SO APPT WAS BRIEF. INFORMED PT ABOUT NORMAL BP READINGS. ENCOURAGED PT TO FOLLOW UP WITH ANY QUESTIONS OR CONCERNS. PT VERBALIZED UNDERSTANDING. Patient goals were {{created revised reviewed*}} during the call. Please refer to member's care plan for additional details. A medication reconciliation was {{performed not performed*}}. If not performed, please state the reason why - {{ PT HAD TO CUT CALL SHORT DUE TO LEAVING HOUSE #}}. A Member Service Request {{was was not*}} completed during this visit. Details of request - {{}}. Appointment Confirmation Members next [place] appointment is confirmed on - {{ 11/09#}} All members must have an LEARNING CENTER COORDINATOR visit at minimum every 6 months while active, or when meeting escalation criteria. A [facility] LEARNING CENTER COORDINATOR follow-up visit {{was scheduled today was offered today and the member refused was not offered/needed today* is already scheduled}}. Members next [facility] LEARNING CENTER COORDINATOR follow-up appointment {{has not been scheduled is on}} {{}} between {{9:00-11:00 AM 11:00-2:00 PM 2:00-5:00 pm}}. Total time spent in the care of the member: {{ 10#}} minutes [email or web address] Not available 10/27/2023 15:39:53 11/10/2023 [id number] General Information Member was contacted via interactive {{telephonic outreach* video call}} and was located in {{[facility]* [facility] a [facility] outside our service area}}. Call recording disclaimer {{was* was not}} given to member, and {{was* was not}} verified. Member is enrolled in hypertension program. During the call the nurse was able to address member's {{concerns questio ns questions and concerns no questions or concerns voiced*}}. Clinical Picture Average BP Over last 30 days: Systolic {{ 116#}} Diastolic {{ 68#}} Based on member's readings and the parameters [facility] COORDIN[facility], member's blood pressure is {{low at goal* high}}. At this time member {{confirms denies* }} symptoms throughout the call. Nursing Review of Systems {{Member asymptomatic at time of call abnormal biometric readings chest pain sob severe CLARK confusion or altered consciousness loss of consciousness one- sided weakness or facial droop seizure maribel re vomiting severe diarrhea inability to eat or drink suicidal or homicidal thoughts or actions }} {{abnormal biometric readings chest pain sob severe CLARK confusion or altered consciousness loss of consciousness one- sided weakness or facial droop seizure maribel re vomiting severe diarrhea inability to eat or drink suicidal or homicidal thoughts or actions }} {{abnormal biometric readings chest pain sob severe CLARK confusion or altered consciousness loss of consciousness one- sided weakness or facial droop seizure maribel re vomiting severe diarrhea inability to eat or drink suicidal or homicidal thoughts or actions }} Last 7 Days of BP readings 11/10/2023, 11:46:46 AM EDT 104 67 70 11/10/2023, 11:42:12 AM EDT 90 55 76 11/10/2023, 11:32:37 AM EDT 96 61 78 11/09/2023, 12:03:29 PM EDT 124 69 67 11/08/2023, 11:38:13 AM EDT 116 63 73 11/07/2023, 12:37:01 PM EDT 106 68 72 11/06/2023, 8:23:06 PM EDT 105 60 99 11/06/2023, 11:32:50 AM EDT 112 71 72 11/05/2023, 5:06:06 PM EDT 128 70 74 11/05/2023, 11:34:41 AM EDT 131 90 76 11/04/2023, 10:56:55 AM EDT 119 78 70 11/03/2023, 9:59:07 AM EDT 128 84 70 Follow-up Based on {{symptoms endorsed by member abnormal biometric readings symptoms endorsed by member & abnormal biometric readings normal biometric readings and no symptoms endorsed by member*}}, a [facility] LEARNING CENTER COORDINATOR follow-up visit {{has has not*}} been recommended. Member {{is in agreement* is not in agreement}} with this plan. Member {{has requested has not requested*}} records to be sent to their PCP. Member has been advised to connect with their PCP for any non urgent symptoms or concerns. Member was advised to call 911 or go to the emergency room if experiencing any urgent or life threatening symptoms or concerns. Nursing Progress Note Clinical Needs Addressed During Call / Education Provided During Call / Clinical Coaching Provided During Call (synopsis of what was discussed during the call) SPOKE WITH BRAN DURING APPT BRAN REPORTED THAT THE PT WAS SLEEPING. REPORTS THAT PT BP READINGS HAVE BEEN WNL AND NO OTHER UPDATES AT THIS TIME. BRAN ALSO STATED THAT PT HAS BEEN TRYING TO D/C BGM BUT HAS NOT RECEIVED ANY RETURN LABELS. WILL RESUBMIT MSR TO D/C BGM. BRAN DENIED ANY MEDICATION CHANGES FOR PT. Patient goals were {{created revised reviewed*}} during the call. Please refer to member's care plan for additional details. A medication reconciliation was {{performed not performed*}}. If not performed, please state the reason why - {{ PT NOT AVAILABLE #}}. A Member Service Request {{was* was not}} completed during this visit. Details of request - {{ MEMBER REQUEST TO D/C BGM #}}. Appointment Confirmation Members next [place] appointment is confirmed on - {{ 12/07#}} All members must have an LEARNING CENTER COORDINATOR visit at minimum every 6 months while active, or when meeting escalation criteria. A [facility] LEARNING CENTER COORDINATOR follow-up visit {{was scheduled today was offered today and the member refused was not offered/needed today* is already scheduled}}. Members next [facility] LEARNING CENTER COORDINATOR follow-up appointment {{has not been scheduled is on}} {{}} between {{8:00 AM - 10:59 AM ET 11:00 AM - 1:59 PM ET 2:00 PM - 5:00 PM ET}}. Total time spent in the care of the member: {{ 15#}} minutes [email or web address] Not available 11/10/2023 16:04:17 Reason for Referral None Reported. Problems Name Problem SNOMED Code Status Onset Date Resolution Date Notes Provider Name and Address Organization Details Recorded Time Essential hypertension 60538260 Active 2023 Carisa osorio, LEARNING CENTER COORDINATOR [address] , [place], [address], [facility] 14:05:29 Prediabetes 819554796 Active 2023 Carisa osorio, LEARNING CENTER COORDINATOR [address] , [place], [address], [facility] 14:05:31 Obesity 418925176 Active 2023 Carisa osorio, LEARNING CENTER COORDINATOR [address] , [place], [address], [facility] 14:05:43 Atrial fibrillation 53307349 Active 2023 Carisa osorio, LEARNING CENTER COORDINATOR [address] , [place], [address], [facility] 4 14:05:49 Anxiety 48578993 Active 2023 Carisa osorio, LEARNING CENTER COORDINATOR [address] , [place], [address], [facility] 14:05:56 Depressive disorder 42089934 Active 2023 Carisa osorio, LEARNING CENTER COORDINATOR [address] , [place], [address], [facility] 14:06:02 Epilepsy 50796740 Active 2023 Carisa Hamilton devon, LEARNING CENTER COORDINATOR [address] , [place], [address], [place] [facility] 14:06:12 Sleep apnea 67017780 Active 2023 Carisa Hamilton devon, LEARNING CENTER COORDINATOR [address] , [place], [address], [place] [facility] 14:06:20 Hypothyroidism 18155475 Active 2023 Carisa osorio, LEARNING CENTER COORDINATOR [address] , [place], [address], [place] [facility] 14:06:28 Hyperlipidemia 92430629 Active 2023 Carisa osorio, LEARNING CENTER COORDINATOR [address] , [place], [address], [place] [facility] 14:06:34 Problem Notes None recorded. Procedures Surgical History Date Name Laterality Status Provider Name and Address Organization Details Recorded Time cholecystectomy completed Carisa Blunt , TEJINDER [address], [place], [address], [place] [facility] 07/03/2023 14:01:30 chin lift completed Carisa Blunt , TEJINDER [address], [place], [address], [place] [facility] 07/03/2023 14:01:49 total replacement of left knee joint completed Carisa Blunt NP [address], [place], [address], [place] [facility] 07/03/2023 14:02:00 total replacement of right knee joint completed Carisa Blunt NP [address], [place], [address], [place] [facility] 07/03/2023 14:02:10 Exploration maxillary sinus completed Carisa Blunt NP [address], [place], [address], [facility] 07/03/2023 14:02:41 craniectomy completed Carisa Jose Raul , TEJINDER [address], [place], [address], [facility] 07/03/2023 14:02:52 Imaging Results None recorded. Procedure Notes None recorded. Medical Equipment None Reported. Allergies No known drug allergies Medications Name Sig Start Date Stop Date Status Note LastModified by Organization Details LastModified Time losartan 50 mg tablet 1 TAB PO QD 07/31 completed Not Available Not Available Not Available furosemide 40 mg tablet TAKE ONE TABLET BY MOUTH ONE TIME DAILY active Not Available Not Available No t Available carvedilol 6.25 mg tablet TAKE ONE TABLET BY MOUTH TWICE A DAY active Not Available Not Available No t Available doxycycline hyclate 100 mg capsule TAKE ONE CAPSULE BY MOUTH TWICE A DAY FOR 5 DAYS 07/02 completed Not Available Not Available Not Available nabumetone 750 mg tablet TAKE ONE TABLET BY MOUTH TWICE A DAY 07/02 completed Not Available Not Available Not Available azithromyci n 250 mg tablet TAKE TWO TABLETS BY MOUTH ON DAY 1, THEN TAKE ONE TABLET ONE TIME DAILY ON DAYS 2-5 07/02 completed Not Available Not Available Not Available cefpodoxime 100 mg tablet TAKE 1 TABLET BY MOUTH EVERY 12 HOURS FOR 7 DAYS 11/09 completed Not Available Not Available Not Available fluconazole 150 mg tablet TAKE ONE TABLET BY MOUTH ONE TIME DAILY FOR 7 DAYS 11/09 completed Not Available Not Available Not Available famotidine 40 mg tablet TAKE ONE TABLET BY MOUTH ONE TIME DAILY AT BEDTIME active Not Available Not Available No t Available propranolol ER 60 mg capsule,24 hr,extended release TAKE ONE CAPSULE BY MOUTH ONE TIME DAILY active Not Available Not Available No t Available sulfamethox azole 800 mg-trimetho prim 160 mg tablet TAKE ONE TABLET BY MOUTH EVERY 12 HOURS FOR 10 DAYS 07/02 completed Not Available Not Available Not Available levothyroxi ne 25 mcg tablet TAKE ONE TABLET BY MOUTH ONE TIME DAILY IN THE MORNING ON AN EMPTY STOMACH active Not Available Not Available No t Available lamotrigine 25 mg tablet TAKE THREE TABLETS BY MOUTH TWICE A DAY 07/02 completed Not Available Not Available Not Available primidone 250 mg tablet TAKE ONE TABLET BY MOUTH AT BEDTIME active Not Available Not Available No t Available prednisolon e acetate 1 % eye drops,suspe nsion INSTILL ONE DROP INTO EACH EYE TWICE DAILY FOR 3 WEEKS, THEN STOP 07/02 completed Not Available Not Available Not Available meclizine 25 mg tablet TAKE ONE TABLET BY MOUTH THREE TIMES A DAY ( IN THE MORNING, AT NOON, AND AT BEDTIME ) NEEDED FOR DIZZINESS FOR UP TO 10 DAYS active Not Available Not Available No t Available paroxetine 30 mg tablet 1 TAB PO QD active Not Available Not Available No t Available pantoprazol e 40 mg tablet,héctor yed release TAKE ONE TABLET BY MOUTH ONE TIME DAILY active Not Available Not Available No t Available losartan 25 mg tablet Take 1 tablet every day by oral route. active Not Available Not Available No t Available gabapentin 100 mg capsule TAKE 1 CAPSULE BY MOUTH AND TITRATE UP TO 3 CAPSULES BY MOUTH THREE TIMES A DAY 07/02 completed Not Available Not Available Not Available clobetasol 0.05 % topical ointment APPLY TO VULVA AREAS UP TO TWO TIMES A DAY FOR ITCHING , THEN TAPER TO 1-2 TIMES PER WEEK active Not Available Not Available No t Available albuterol sulfate HFA 90 mcg/actuati on aerosol inhaler INHALE TWO PUFFS BY MOUTH EVERY 4 HOURS NEEDED 07/02 completed Not Available Not Available Not Available ipratropium bromide 42 mcg (0.06 %) nasal spray USE TWO SPRAYS IN EACH NOSTRIL TWICE DAILY active Not Available Not Available No t Available lamotrigine 100 mg tablet TAKE ONE TABLET BY MOUTH TWICE A DAY active Not Available Not Available No t Available mometasone 0.1 % topical cream APPLY TO EARS ONE TIME DAILY FOR ITCHING 07/02 completed Not Available Not Available Not Available rosuvastati n 40 mg tablet TAKE ONE TABLET BY MOUTH ONE TIME DAILY active Not Available Not Available No t Available nitrofurant oin monohydrate /macrocryst als 100 mg capsule TAKE ONE CAPSULE BY MOUTH TWICE A DAY FOR 3 DAYS 11/09 completed Not Available Not Available Not Available cholecalcif caio (vitamin D3) 50 mcg (2,000 unit) capsule TAKE 1 CAPSULE BY MOUTH EVERY DAY active Not Available Not Available No t Available Vitals Date Recorded Body height Body mass index (BMI) Body weight Provider Name and Address Organization Details Last Updated DateTime 10/27/2023 162.56 cm 40.3 kg/m2 933351.21 g [facility] 10/27/2023 15:39:57 Social History Question Answer Notes LastModified by Organizat ion Details LastModified Time Tobacco Smoking Status Former Smoker Carisa Blunt, LEARNING CENTER COORDINATOR [address], [place], [address] 07/03/2023 13:54:10 What Is Your Level Of Alcohol Consumption? Moderate Information not available 07/03/2023 What Is Your Level Of Caffeine Consumption? Moderate Information not available 07/03/2023 When Did You Quit Smoking? 18+yearssincel marieyessenia Information not available 07/03/2023 Sex: Unknown Functional Status None recorded. Mental Status None recorded. Family History Nothing Reported. Medical History Condition Response Depression Y Hypothyroidism Y Anxiety Disorder Y Obesity Y High Cholesterol Y Diabetes Y Seizures/Epilepsy Y Sleep Apnea Y Hypertension Y Gynecological HistoryNo gynecological history recorded. Obstetrics History GPAL:G 0 P 0 0 0 0 Past Encounters Encounter ID Performer Location Encounter Start Date Encounter Closed Date Diagnosis/Indication Diagnosis SNOMED-CT Code Diagnosis ICD10 Code Diagnosis Note [id number] Carisa NolanFinn er, LEARNING CENTER COORDINATOR PS_Provid er Schedule [address] [place] [address] 07/03/2023 13:40:24 07/03/2023 14:08:36 Essential hypertension 88604784 I10 Prediabetes 802117175 R7 3.03 [id number] Carisaray Hamiltonv er, LEARNING CENTER COORDINATOR NS_Nursin g Schedule [address] [place] [address] 07/21/2023 15:13:02 07/21/2023 16:39:49 Essential hypertension 42327335 I10 Prediabetes 136787769 R7 3.03 [id number] Carisa NolanBradenwv er, LEARNING CENTER COORDINATOR NS_Nursin g Schedule [address] [place] [address] 08/01/2023 15:56:41 08/01/2023 17:01:56 Essential hypertension 07826199 I10 Prediabetes 071414658 R7 3.03 [id number] Carisa Wason-Fawv er, LEARNING CENTER COORDINATOR NS_Nursin g Schedule [address] [place] [address] 08/04/2023 15:02:39 08/04/2023 16:55:57 Essential hypertension 76193154 I10 Prediabetes 033414923 R7 3.03 [id number] Carisa Wason-Fawv er, LEARNING CENTER COORDINATOR NS_Nursin g Schedule [address] [place] [id number] 09/01/2023 15:48:33 09/01/2023 17:00:58 Essential hypertension 91473898 I10 Prediabetes 540290313 R7 3.03 [id number] Carisa Wason-Fawv er, LEARNING CENTER COORDINATOR NS_Nursin g Schedule [address] [place] [address] 09/15/2023 15:19:55 09/16/2023 08:36:48 Essential hypertension 40128608 I10 Prediabetes 197839364 R7 3.03 [id number] Carisa Wason-Fawv er, LEARNING CENTER COORDINATOR NS_Nursin g Schedule [address] [place] [address] 09/29/2023 15:55:33 09/29/2023 17:01:09 Essential hypertension 94626876 I10 Prediabetes 225301013 R7 3.03 [id number] Carisa Wason-Fawv er, LEARNING CENTER COORDINATOR NS_Nursin g Schedule [address] [place] [address] 10/13/2023 15:55:16 10/13/2023 17:04:07 Essential hypertension 63721131 I10 Prediabetes 992162999 R7 3.03 [id number] Carisa Wason-Fawv er, LEARNING CENTER COORDINATOR NS_Nursin g Schedule [address] [place] [address] 10/27/2023 15:31:55 10/27/2023 16:50:14 Essential hypertension 76039832 I10 Prediabetes 730669134 R7 3.03 [id number] Carisa Wason-Fawv er, LEARNING CENTER COORDINATOR NS_Nursin g Schedule [address] [place] [address] 11/10/2023 15:53:20 11/10/2023 16:40:14 Essential hypertension 28121781 I10 Health Concerns Section Related Observation LastModified by Organization Detai ls LastModified Time None Recorded Concern Status LastModified by Organization Details LastModified Time None Recorded Advance Directives Directive None Recorded Payers Encounter Date Sequence Insurance Name Policy Number Policy Schilling Covered Member ID Schilling Member ID Guarantor Name 09/15/2023 1 [place] Silvana F Payam [id number] Silvana Payam 09/29/2023 1 [place] Silvana F Payam [id number] Silvana Payam 10/13/2023 1 [place] Silvana F Payam [id number] Silvana Payam 10/27/2023 1 [place] Silvana F Payam [id number] Silvana Payam 11/10/2023 1 [place] Silvana F Payam [id number] Silvana Payam OBGyn Episode No OBEpisode recorded.
--- OUTSIDE RECORDS SUMMARY | 2024-05-30 10:30 | XMS_ITS | Clinical Summary ---
Author Organization [facility] Address [address] [place] [address] Care Team Providers Care Compressor Service Technician Name Role Phone Jose Norton MD Primary Care Provider [phone] Allergies Active Allergy Reactions Criticality Noted Date Comments Ciprofloxacin Itching,Swelling,Redness High 07/27/19 23 Medications famotidine (PEPCID) 40 MG tablet Take 1 tablet (40 mg total) by mouth. 4 Active lamoTRIgine (LAMICTAL) 100 MG tablet Take 1 tablet (100 mg total) by mouth 2 (two) times daily. Active levothyroxine (SYNTHROID) 25 MCG tablet Take 1 tablet (25 mcg total) by mouth daily. Active pantoprazole EC (PROTONIX) 40 MG tablet Take 1 tablet (40 mg total) by mouth daily. Active PARoxetine (PAXIL) 30 MG tablet Take 1 tablet (30 mg total) by mouth. 4 Active primidone (MYSOLINE) 250 MG tablet Take 1 tablet (250 mg total) by mouth daily. 3 Active rosuvastatin (CRESTOR) 40 MG tablet Take 1 tablet (40 mg total) by mouth daily. Active aspirin 81 MG chewable tablet Chew 1 tablet (81 mg total) by mouth daily. Active carvedilol (COREG) 6.25 MG tablet Take 1 tablet (6.25 mg total) by mouth 2 (two) times daily. 180 tablet 5 Active losartan (COZAAR) 100 MG tablet Take 1 tablet (100 mg total) by mouth daily. 30 tablet 2 5 Active losartan (COZAAR) 50 MG tablet Take 1 tablet (50 mg total) by mouth daily. 05/05/19 25 Discontinu ed(Nora aguirre Physician) Encounters Date Type Department Care Team Description 05/13/2024 Abstract [facility], [facility] [address] [place] [address] Robe Mendoza MA 05/12/2024 Orders Only [facility] [address] [place] [address] Sadie Villasenor MD 05/05/2024 Telephone [facility] [address] [place] [address] Sadie Villasenor MD Blood Pressure 04/13/2024 Telephone [facility] [address] [place] [address] Sadie Villasenor MD Medication (Carvedilol ) from Last 3 Months Family History Medical History Relation Comments No Known Problems Father No Known Problems Mother No Known Problems Sister 1 No Known Problems Sister 2 No Known Problems Sister 3 No Known Problems Sister 4 Relation Status Comments Father Mother Sister 1 Alive Sister 2 Alive Sister 3 Alive Sister 4 Alive Social History Tobacco Use Types Packs/Day Years Used Date Smoking Tobacco: Former Cigarettes Q uit: 1974 Passive Smoke Exposure: Past Smokeless Tobacco: Never Tobacco Cessation:Counseling Given: Not Answered Alcohol Use Standard Drinks/Week Comments Yes 16.7 (1 standard drink = 0.6 oz pure alcohol) Comments Unknown Sex and Gender Information Value Date Recorded Sex Assigned at Not on file Legal Sex Female 5:49 PM CDT Gender Identity Not on file Sexual Orientation Not on file Last Filed Vital Signs Vital Sign Reading Time Taken Comments Blood Pressure 112/70 02/13/2024 11:49 AM [employer]ING [employer]ER Pulse 71 02/13/2024 11:49 AM [employer] Temperature - - Respiratory Rate - - Oxygen Saturation 91% 02/13/2024 11: 49 AM [employer] FE[employer] Inhaled Oxygen Concentration - - Weight 112.2 kg (247 lb 6.4 oz) 024 11:49 AM [employer] Height 162.6 cm (5' 4 ) 02/13/2024 11:4 9 AM [employer] FE[employer] Body Mass Index 42.47 02/13/2024 11:49 AM [employer] FE[employer] Plan of Treatment Upcoming Encounters Date Type Department Care Team (Late st Contact Info) Description 08/24/2024 1:00 PM CDT Office Visit [facility] [address] [facility], [address] [place] [address] Monet Beltran MD [address] [place] [address] 09/03/2024 12:00 PM CDT Office Visit [facility] [address] Sadie Villasenor MD [address] [facility] [address] [place], [place] [id number] Health Maintenance Due Date Last Done Comments DTaP, Tdap and Td Vaccines ( 1 - Tdap) 1961 Zoster Vaccines (1 of 2) 1992 Annual Medicare Wellness Visit 11/03/2007 Dexa Scan (General) 11/03/2007 Pneumococcal Vaccine: 65+ Ye ars (1 of 1 - PCV) 11/03/2007 RSV Immunization or 60+ Years (1 - 1-dose 75+ series) 2017 COVID-19 Vaccine ( - 2023-2 5 season) 2023 Influenza Adult (#1) 2023 PHQ-2 (Physician [place]) 03/24/2024 Meningococcal B Vaccine Aged Out No l onger eligible based on patient's age to complete this topic Meningococcal Vaccine Aged Out No frederick edgard eligible based on patient's age to complete this topic RSV Immunizations Under 20 Months Aged Out No longer eligible based on patient's age to complete this topic Procedures Procedure Name Priority Date/Time Associated Diagnosis Comments BASIC METABOLIC PANEL Routine 05/12/2024 from Last 3 Months Results * BASIC METABOLIC PANEL (05/12/2024) SODIUM S/P/B 142 POTASSIUM S/P/B 4.2 CO2 26 CHLORIDE S/P/B 105 GLUCOSE 127 mg/dL CALCIUM S/P/B 9.1 BUN 8 CREATININE S/P/B 0.52 0.5 - 1.0 GFR ESTIMATE 93 05/12/2024 us Default History Genericprovider LABORATORY Final Result from Last 3 Months Insurance MEDICARE [facility] Care Teams Compressor Service Technician Relationship Specialty Start Date End Date Jose Norton MD [address] [place] [address] PCP - General FAMILY PRACTICE 02/13/24
--- OUTSIDE RECORDS SUMMARY | 2024-05-30 10:31 | XMS_ITS | Data Portability ---
Author Organization [place] - [facility] [place], [id number] TECHNOLOGICAL RADIOLOGY Address [address] [place] [id number] Care Team Providers Care Trousseau Consultant Name Role Phone MARILYN JAIN OTHER RADHA DUMONT Primary Care Provider ANN-MARIE BLANCO Pillowcase Cutter Assessment Encounter Date Assessment Date Assessment LastModified by Organization Details LastModified Time 12/22/2020 12/22/2020 Silvana is here for reevaluation of tremor, intracranial meningioma, worsening anxiety and depression and seizures from the meningioma with a significant amount of vasogenic edema which was resected without complications, but she had developed severe depression since. She has no motivation, no energy, profound fatigue, is sleeping 15-16 hours a day, after sleeping all night. Although she has had depression on past she is never felt like this. This was significantly improved with aripiprazole 10 mg that lifted her out of depression, for which it was recently discontinued at her own choosing. Reviewing her chart does reveal low normal B12 386 in 2013. I recommended a B12 shot today and then have other studies followed by her primary care physician. She continues using primidone titrated to 250 mg recently, tolerating it well, and has added a 50 mg dose in the morning with gradual, progression of tremor. We discussed today increasing this to 50 mg 2 tablets in the morning. She is now on lamotrigine 100 mg once a day for both seizure activity and mood stability. She has images from her MRI brain status post surgery on February 2020 for me to review today. This is reviewed personally by myself with the patient showing the pre-and post surgical imaging of the meningioma and resection cavity but much less edema. She has severe insomnia, exacerbated by multiple stressors as reported above, not improved by anything, up all night last night. One of her new complaints today is one of worsening memory, present at all times, worse with anxiety, stress, sleep deprivation, associated with difficulty retrieving names, places, short-term memory predominantly asking the same questions repeatedly, not improved by anything. Review of systems is positive for new onset seizures secondary to meningioma, recent resection of meningioma, worsening, severe depression, severe insomnia, worsening anxiety, memory problems, severe stress, anxiety, insomnia, severe lethargy associated with Keppra.. She denies acute fever, chills, illness, skin rash or lesions, palpitations, bladder or bowel changes. Physical Exam: Constitutional: Level of distress is awake & alert. Well developed and well nourished. Overall appearance is age appropriate and good hygiene, she does appear tired and fatigued. Eyes: Right General eye condition is normal. Lid/lash: normal. No injection. No icterus. Cornea is unremarkable. PERRLA. Iris: normal. Anterior chamber: normal. Fundus is benign. EOM's intact - no nystagmus. Left General eye condition is normal. Lid/lash: normal. No injection. No icterus. Cornea is unremarkable. PERRLA. Iris: normal. Anterior chamber: normal. Fundus is benign. EOM's intact - no nystagmus. Red reflexes are symmetric. Cardiovascular: Palpation Percussion: PMI normal. Heart Sounds: NL S1, NL S2. Extra Sounds: None. Murmurs: None. Rate and Rhythm: Heart rate is regular rate. Rhythm is regular. JVD is absent. See also extremities. No edema is present. Vascular: Pulses: Carotid pulses: normal. Dorsalis pedis pulses: normal. Posterior tibial pulses: normal. Musculoskeletal: Muscle tone is normal in all extremities proximally and distally with high-frequency low amplitude tremor of the upper extremities bilaterally, right greater than left with no significant change from previous examination Cervical: Tender trigger points in the occiput at the insertion of the trapezius and sternocleidomastoid muscles with paraspinous muscle tenderness from chronic spasm Thoracic: No kyphosis or scoliosis. No sensory deficit or sensory level Lumbar: Bilateral SI joint tenderness, worse than previous examination Comments: negative straight leg raise. Extremities: Dorsalis pedis pulses: normal. Posterior tibial pulses: normal. No edema is present. Neurological: Level of Consciousness: Normal. Orientation: Alert and oriented X 3. Grossly normal intellect. Memory: Intact. Optic Nerve: Pupils normal. Fundoscopic examination reveals a normal appearance of the optic disc and retina vasculature . Papilledemia is not noted. Visual Downey: normal with confrontational testing Oculomotor: normal blink rate and pupils size. Trochlear: normal upward gaze. Abducens: No nystagmus with lateral gaze in either direction Motor reflexes normal. Sensation normal. Trigeminal: Sensation is intact V1 through V3 bilaterally Motor and Reflexes: normal. Facial: normal facial symmetry bilaterally Acoustic: Hearing is intact to finger rubbing eye laterally Glossopharyngeal: Gag is intact Vagus: normal. Spinal Accessory: Shoulders shrug symmetrically Hypoglossal: Speech is normal with no dysarthria or aphasia Balance & Gait: Slow, cautious gait Coordination: Coordination intact. Fine Motor: no tremor, mild past-pointing. Head Motor Function is normal. CN V: Temporal muscles equal in size and contraction; no fasciculations seen. CN V: Masseter muscles equal in size and contraction, no fasciculations seen. CN VII: Forehead muscles were intact and no tics were seen. CN VII: Orbicularis Oculi eyelids closed symmetrically. CN VII: Mouth patient can puff the cheeks out, raise the lips to show the teeth, and whistle. CN VII: Soft Palate uvula elevates in the midline when the patient says aah . CN XI: Sternomastoid patient can turn the chin to both sides against resistance. CN XII: Tongue extends in the midline and fasiculations are not seen. Deltoid: abduction of the arms is normal. Biceps-Brachialis: Forearm flexion is intact without cogwheel rigidity. Triceps: Extension of the forearm is normal. Wrist Extensors: There is no weakness of extension at the wrist. Wrist Flexors: Flexion of the wrist is intact and symmetrical. Thenar: Opposition of the thumb and digits is strong. Interossei: The patient can spread the fingers against resistance. Iliopsoas: The patient could raise the knee against pressure while supine. Gluteus Timoteo: Extension at the hip was strong against pressure. Quadriceps: 5/5 strength on the left side, 5/5 strength on the right side, Hamstrings: Knee flexion against resistance was 5/5 and symmetric. Peronei: Eversion (external rotation) of the feet is intact. Tibialis Anterior: Dorsiflexion of the feet is 5/5 and symmetric. Gastrocnemius - Soleus: Plantar flexion of the feet is intact and the patient cannot stand on their tiptoes. Biceps deep tendon reflex is 1+ bilaterally. Brachioradialis deep tendon reflex is 1+ bilaterally. Triceps deep tendon reflex is 1+ bilaterally. Patellar reflex is 1+ bilaterally. Achilles reflex is 1 bilaterally. Babinski: Reflexes normal downgoing toes. Strong voice. No drooling. Arises from chair with use of both arms. Cautious, 4 step pivot. No retropulsion. Psychiatric: The patient is oriented to time, place, person, and situation. The patient's affect is normal but she reports being under severe stress, feeling anxious at times, having worsening cognition, frustration, feelings of isolation and being overwhelmed. Comments: Higher Integrative Functioning: The patient is oriented to time, place and person. Recent and remote memory are intact. Attention span and concentration are normal. Language has normal spontaneous speech and prosody. Fund of knowledge is normal for age, socioeconomic status and educational level. Impression: #1 history of intracranial meningioma, strongly enhancing with the presence of a dural tail and a significant amount of surrounding vasogenic edema status post surgical resection without complications. The postsurgical MRI was normal, she is scheduled to have an MRI with and without contrast 2 years from the date of surgery, which will be the end of this year to assess for interval change. #2 essential tremor improved with primidone 250 mg nightly but still present, recommend adjustment of medication #3 cephalgia with a prominent cervicogenic component worse since surgery #4 migraine with aura, good response to rizatriptan 10 mg at the earliest onset of migraine #5 insomnia, multifactorial #6 history of severe depression that improved significantly on aripiprazole titrated to 10 mg for which she now feels it is no longer necessary #7 subjective complaints of cognitive decline, likely multifactorial including depression, craniotomy, polypharmacy with anticonvulsants, consider early manifestations of dementia Plan: #1 aripiprazole has been discontinued. She feels it is not necessary at this time #2 lamotrigine will be decreased to 50 mg daily both seizure control and mood disorder #3 MRI brain with and without contrast is reviewed personally at length by myself with the patient today showing no recurrence of meningioma. There is diffuse cortical atrophy, scattered white matter signal changes but no acute abnormalities #4 primidone 250 mg tablet nightly, increase the 50 mg dose in the morning to 3 tablets, prescription provided today. This will also be titrated as necessary #5 alprazolam 0.5 mg is available for worsening anxiety, but she states she is trying to avoid taking it. #6 paroxetine 30 mg he is being discontinued. She has been on this for 30 years and feels it is not helping. I'm recommending venlafaxine 75 mg, prescription provided today #7 encourage exercise regimen for generalized conditioning, stress reduction, depression, recent weight gain. She reports feeling so depressed she simply cannot do so #8 I have reviewed previous laboratory data showing borderline abnormal TSH and free T4, very low B12 386. Recommend vitamin B12 injection today, and then vitamin B12 1000 g daily #9 I am repeating blood work to include B12, folic acid, homocystine levels to assess worsening cognition #10 began EB-C3, medical supplement for mild cognitive impairment, return in 3 months for reevaluation [email or web address] Not available 12/22/2020 15:13:31 11/19/2021 11/19/2021 PT is a 79 y/o F with PMHx sig for GERD, colon polyp, HLP, meningioma- s/p brain sx, seizures and osteoporosis who presents for f/u of multiple GI complaints. [email or web address] Not available 11/19/2021 09:50:24 01/20/2023 01/20/2023 PT is a 82 y/o F with PMHx sig for GERD, colon polyp, HLP, meningioma- s/p brain Sx, Seizures and Osteoporosis who presents for f/u of multiple GI complaints. Not available 02/07/2023 16:57:17 06/09/2023 06/09/2023 PT is a 82 y/o F with PMHx sig for GERD, colon polyp, HLP, meningioma- s/p brain Sx, Seizures and Osteoporosis who presents for f/u of multiple GI complaints. Not available 07/24/2023 13:45:29 Plan of Treatment Reminders Order Date Submit Date Provider Last Modified By Organization Details Last Modified Time Details Appointments None recorded. Lab None recorded. Referral None recorded. Procedures None recorded. Surgeries None recorded. Imaging bone density 2021 022 [email or web address] Not available 14:30:42 Medication Orders Pepcid 40 mg tablet 2022 023 [email or web address] [id number] [address], [address] [place], [address], 16:56:38 primidone 50 mg tablet 2020 [facility] [id number] [facility] [employer], [address] [place], [address], 14:55:36 primidone 250 mg tablet 2020 [facility] [id number] [facility] [employer], [address] [place], [address], 14:55:37 lamotrigin e 25 mg tablet 2020 [facility] [address] [facility] [employer], [address] [place], [address], 14:55:37 venlafaxin e 75 mg tablet 2020 [facility] [address] [facility] [employer], [address] [place], [address], 14:55:37 Patient TargetsNo targets recorded. Patient Instructions Encounter Date Encounter Id Patient Instructions Last Modified By Organization Details Last Modified Time 11/19/2021 [id number] diarrhea: care instructions [email or web address] Not available 11/19/2021 10:02:40 11/29/2022 [id number] diarrhea: care instructions [email or web address] Not available 11/29/2022 15:51:41 Reason for Referral None Reported. Results Created Date Observation Date Name Description Value Unit Range Abnormal Flag Note LastModifiedBy Organization Detail LastModifiedTime 12/26/19 22 12/25/2021 DEXA, axial skele ton [facility] [place] Rylie t: AZALEA JACKSON [id number] Sex: Female Locati on: [facility] Orderi ng Physic arlene: SOCORRO GOMES TURN SUPERVISOR Bone Densit y ACCESS ION EXAM DATE/T KERRY [id number] -[id number] 15:49 EDT Reason For Exam m85.88 Report PROCED URE INFORM ATION: Exam: XR DXA Bone Densit y, Axial Skelet on Exam date and time: 3:00 PM Age: 81 years old Clinic al indica tion: Screen ing exam; Screen ing for osteop orosis ; Additi onal info: M85.88 TECHNI QUE: Imagin g protoc ol: Dual energy x-ray absorp tiomet ry perfor med. Bone minera l densit y analys is of the lumbar spine and the femora l neck or total hip. Readin gs are compar ed with gender matche d averag e of normal , and with age, weight and ethnic origin (Z score) and with health y young adults (T score) . COMPAR PHILIP: OT DEXA 016 2:32 PM FINDIN GS: DXA Scanne r make and model: Hologi c LEFT FEMORA L NECK: Bone minera l densit y is 0.659 g/cm2. T-scor e is -1.7 Z-scor e is 0.6 Osteop enia range by WHO criter ia. 17.1% declin e LEFT TOTAL HIP: Bone minera l densit y is 1.016 g/cm2. T-scor e is 0.6 Z-scor e is 2.6 Normal range by WHO criter ia. 13.7% declin e Frax score (10-ye ar fractu re risk): Major osteop orotic fractu re: 12 % Hip fractu re: 2.9 % LUMBAR SPINE: Levels includ ed: L1-L4 Bone minera l densit y is 1.387 g/cm2. T-scor e is 3.1 Z-scor e is 5.7 Normal range by WHO criter ia. 3.9% declin e Impres winston: Osteop enia by WHO criter ia Refere nce: Bone minera l densit y is measur ed in g/cm2. Z-scor e is the number of standa rd deviat ions above age-ma tched contro ls. T-scor e is the number of standa rd deviat ions above health y young adults . World Health Organi zation Guidel adelita: Bone Densit y Report Normal bone minera l densit y is T-scor e at or above -1. Osteop enia is T-scor e betwee n -1 and -2.5. Osteop orosis is T-scor e of -2.5 or below. Severe osteop orosis is T-scor e of -2.5 or below with fractu re(s). Artemio Pena MD On 2021 16:21: 06; -[facility] [id number] Final Signed by: ARTEMIO PENA MD Signed (Elect demetrio queen): 2021 04:21 pm EDT [email or web address] - Radiology Scheduling [address] [facility], [place], [address], 12/31/2021 15:34:33 Result Notes None recorded. Problems Name Problem SNOMED Code Status Onset Date Resolution Date Notes Provider Name and Address Organization Details Recorded Time Hypercholeste rolemia 01632076 Active Not Available [facility] 12:50:53 Migraine 74395527 Active Not Available [facility] 12:50:53 Essential hypertension 56756418 Active Not Available [facility] 12:50:52 Tubular adenoma 673776839 Active Not Available [facility] 12:50:53 Hyperglycemia 92871875 Active Not Available [facility] 12:50:52 Gastroesophag eal reflux disease 594684767 Active Not Available [facility] 12:50:53 Epigastric pain 04949615 Active Not Available [facility] 10/16/202 1 12:50:53 Obesity 360711341 Active Not Available [facility] 12:50:52 Diarrhea 67844817 Active Not Available [facility] 12:50:53 Depressive disorder 96578574 Active Not Available [facility] 12:50:52 Anxiety disorder 504317089 Active Not Available [facility] 12:50:52 Generalized abdominal pain 672127929 Active Not Available [facility] 12:50:52 Osteoporosis 10542573 Active Not Available [facility] 12:50:52 Tremor 18963228 Active 2017 Not Available [facility] 12:50:52 Insomnia 344218925 Active 2017 Not [address] [facility] 12:50:53 Vitamin D deficiency 10928925 Active Not Available [facility] 12:50:52 Megaloblastic anemia due to vitamin B>12< deficiency 54608707 Active Not Available [facility] 12:50:52 Senile osteoporosis 53348422 Active Not Available [facility] 12:50:52 Heart murmur 86699636 Active Not Available [facility] 12:50:52 Thready pulse 44988934 Active Not Available [facility] 12:50:52 Edema 194453340 Active Not Available [facility] 12:50:52 Morbid obesity 285931091 Active Not Available [facility] 12:50:52 Joint pain 15743990 Active Not Available [facility] 12:50:53 Jaime thyroiditis 03443172 Active Not Available [facility] 12:50:53 Hyperlipidemi a 31910228 Active Not Available [facility] 12:50:53 Body mass index 30+ - obesity 758968697 Active Not Available [facility] 12:50:53 Malaise and fatigue 478843430 Active Not Available [facility] 12:50:52 Synovial cyst of popliteal space Active Not Available [facility] 10/16/202 1 12:50:53 Cough 50141292 Active Not Available [facility] 1 12:50:53 Seizure disorder 006091104 Active 2017 Not Available [facility] 1 12:50:53 Disorder of vitamin B12 751284745 Active 2018 Not Available [facility] 1 12:50:52 Memory impairment 317132534 Active 2020 Not Available [facility] 12:50:53 Fatigue 35818810 Active 2021 SOCORROCRISSY PRATTFRANDY Devries [address] [place] [address], [phone] , [address] 2 09:49:59 Polyp of colon 03280231 Active 2021 SOCORRO PRATTJaycob [address], [address] , [address] 2 09:58:37 Abdominal bloating 040518274 Active 2021 SOCORRO PRATTJaycob BIOMEDICAL INSTRUMENT TECHNICIAN [address] [place] [address], [phone] , [address] 2 10:11:09 Incontinence of feces 26715355 Active 2021 SOCORRO PRATTJaycob [address], [address] , [address] 2 10:15:09 Dysphagia 56954103 Active 2021 SOCORRO JAZMINFRANDY Devries [address] [place] [address], [phone] , [address] 2 10:15:09 Gastroesophag eal reflux disease without esophagitis 683112283 Active 2022 ANN-MARIE BLANCO MD [address] [place] [address], [phone] , [address] 3 14:26:09 Problem Notes None recorded. Procedures Surgical History Date Name Laterality Status Provider Name and Address Organization Details Recorded Time 11/30/19 20 Colonoscopy completed Allison Gillespie RN Clinic Office [address] 12/14/2019 16:22:28 05/01/19 15 Orthopaedic Surgery completed Allison Gillespie RN Clinic Office [address] 04/24/2015 10:57:09 02/25/20 14 Date of Last Pap Smear completed Martha Vaughn RN Clinic Office [address] 04/01/2014 10:44:02 12/23/19 14 Date of Last Mammogram completed Martha Vaughn RN Clinic Office [address] 02/24/2014 11:22:55 08/23/19 12 Colonoscopy completed Anastasiya Yusuf LPN [address] 01/22/2016 09:52:10 Cholecystectomy completed Gloria Jean-Pierre [address] 12/14/2013 14:45:18 Appendectomy completed Gloria Jean-Pierre [address] 12/14/2013 14:45:18 Other completed Gloria Jean-Pierre [address] 12/14/2013 14:45:18 Other completed Gloria Jean-Pierre [address] 12/14/2013 14:50:14 Appendectomy completed Bernardo Danae [address] 01/24/2014 09:07:08 Cholecystectomy completed Bernardo Danae [address] 01/24/2014 09:07:08 Breast Surgery completed Bernardo Danae [address] 01/24/2014 09:07:08 Other completed Bernardo Danae [address] 01/24/2014 09:07:08 Other completed Bernadro Danae [address] 01/24/2014 09:07:08 Tubal Ligation completed Martha Vaughn RN Clinic Office [address] 02/24/2014 11:22:55 Other completed Martha Vaughn RN Clinic Office [address] 02/24/2014 11:22:55 breast augmentation completed Jayden Tapia RN Clinic Office [address] 02/24/2014 11:22:55 Endometrial Ablation completed Martha Vaughn RN Clinic Office [address] 02/24/2014 11:22:55 Imaging Results Imaging Date Name Status [facility] Details LastModified Time 12/25/2021 DEXA, axial skeleton completed [address] - Radiology Scheduling [address] [facility], [place], [address], 12/31/2021 15:34:33 Procedure Notes None recorded. Medical Equipment None Reported. Allergies Allergen ID Allergen Name Allergen Category Reaction Reaction Severity Criticality Documentation Date Start Date Code Code System Note Provider Name and Address Organization Details Recorded Time 981679 Ceclor medicatio n Not available Not available Not available 12/14/2013 5 RxNorm Gloria Morejon [address] 4 14:50:14 [id number] cefaclor medicatio n myalgias (muscle pain) Not available Not available 01/17/20142175 RxNorm Bernardo Fink [address] 4 09:07:08 450271 Cipro medicatio n Not available Not available Not available 02/24/2014 3 RxNorm Martha Vaughn RN Clinic Office [address] 4 11:22:55 Medications Name Sig Start Date Stop Date Status Note LastModified by Organization Details LastModified Time Prescripti on - Renewal 05/13 completed Not Available Not Available Not Available Prescripti on - New 05/13 completed Not Available Not Available Not Available losartan 50 mg tablet TAKE 1 TABLET BY MOUTH EVERY DAY active Not Available Not Available No t Available celecoxib 200 mg capsule 04/24 completed Not Available Not Available Not Available fluoxetine 40 mg capsule TAKE 1 CAPSULE BY MOUTH EVERY DAY active Not Available Not Available No t Available amoxicilli n 500 mg capsule TAKE 4 CAPSULES BY MOUTH 1 HOUR PRIOR TO DENTAL APPOINTM ENT 06/08 completed Not Available Not Available Not Available furosemide 40 mg tablet Take 1 tablet every other day by oral route for 90 days. 05/13 completed Not Available Not Available Not Available terconazol e 0.4 % vaginal cream INSERT ONE APPLICAT ORFUL VAGINALL Y ONE TIME DAILY AT BEDTIME FOR 7 DAYS active Not Available Not Available No t Available primidone 50 mg tablet TAKE 3 TABLETS BY MOUTH EVERY MORNING active Not Available Not Available No t Available potassium chloride ER 10 mEq capsule,ex tended release Take 1 capsule every day by oral route for 15 days. 01/09 completed Not Available Not Available Not Available carvedilol 6.25 mg tablet TAKE ONE TABLET BY MOUTH TWICE A DAY active Not Available Not Available No t Available prednisone 10 mg tablet 01/23 completed Not Available Not Available Not Available doxycyclin e hyclate 100 mg capsule TAKE ONE CAPSULE BY MOUTH TWICE A DAY FOR 5 DAYS active Not Available Not Available No t Available venlafaxin e 75 mg tablet Take 1 tablet every day by oral route for 90 days. active Not Available Not Available No t Available ketoconazo le 2 % shampoo WASH HAIR 3 X WEEKLY. LEAVE LATHERED 5 MINUTES BEFORE RINSING active Not Available Not Available No t Available nabumetone 750 mg tablet TAKE ONE TABLET BY MOUTH TWICE A DAY active Not Available Not Available No t Available Klor-Con 10 mEq tablet,ext ended release TAKE 1 TABLET BY MOUTH EVERY DAY 05/13 completed Not Available Not Available Not Available azithromyc in 250 mg tablet TAKE TWO TABLETS BY MOUTH ON DAY 1, THEN TAKE ONE TABLET ONE TIME DAILY ON DAYS 2-5 01/20 completed Not Available Not Available Not Available nystatin 100,000 unit/gram topical ointment 03/10 completed Not Available Not Available Not Available fluconazol e 150 mg tablet TAKE 1 TABLET BY MOUTH EVERY 72 HOURS X 3 DOSES. FOLLOW BY 1 TABLET BY MOUTH ONCE A WEEK 11/19 completed Not Available Not Available Not Available benzonatat e 200 mg capsule TAKE ONE CAPSULE BY MOUTH THREE TIMES A DAY NEEDED active Not Available Not Available No t Available levetirace burt 500 mg tablet TAKE 1 TABLET BY MOUTH TWICE A DAY active Not Available Not Available No t Available bacitracin 500 unit/gram eye ointment 01/17 completed Not Available Not Available Not Available famotidine 40 mg tablet TAKE ONE TABLET BY MOUTH ONE TIME DAILY AT BEDTIME active Not Available Not Available No t Available rizatripta n 10 mg tablet TAKE 1 TABLET EVERY 12 HOURS BY ORAL ROUTE FOR MIGRAINE FOR 30 DAYS. 05/13 completed As needed. Not Available Not Available Not Available propranolo l ER 60 mg capsule,24 hr,extende d release TAKE ONE CAPSULE BY MOUTH ONE TIME DAILY active Not Available Not Available No t Available doxycyclin e hyclate 50 mg capsule 07/15 completed Not Available Not Available Not Available metronidaz ole 500 mg tablet TAKE ONE TABLET BY MOUTH TWICE A DAY FOR 3 DAYS 11/19 completed Not Available Not Available Not Available amlodipine 5 mg tablet 05/13 completed Not Available Not Available Not Available ciprofloxa oswaldo 500 mg tablet 01/17 completed Not Available Not Available Not Available sulfametho xazole 800 mg-trimeth oprim 160 mg tablet TAKE ONE TABLET BY MOUTH EVERY 12 HOURS FOR 10 DAYS active Not Available Not Available No t Available peg-electr olyte solution 420 gram oral solution Please specify directio ns, refills and quantity active Not Available Not Available No t Available omeprazole 40 mg capsule,de layed release 12/22 completed Not Available Not Available Not Available triamcinol one acetonide 0.1 % topical cream APPLY TO NECK AND BEHIND EARS DIRECTED TWICE DAILY X 2 WEEKS 05/13 completed Not Available Not Available Not Available amoxicilli n 500 mg tablet 11/19 completed Not Available Not Available Not Available simvastati n 40 mg tablet 08/05 completed Not Available Not Available Not Available carvedilol 3.125 mg tablet TAKE 1 TABLET BY MOUTH TWICE A DAY active Not Available Not Available No t Available levothyrox ine 25 mcg tablet TAKE ONE TABLET BY MOUTH ONE TIME DAILY IN THE MORNING ON AN EMPTY STOMACH active Not Available Not Available No t Available lamotrigin e 25 mg tablet TAKE THREE TABLETS BY MOUTH TWICE A DAY active Not Available Not Available No t Available oxycodone- acetaminop hen 5 mg-325 mg tablet TAKE 1 TABLET ORALLY 4 HRS NEEDED FOR PAIN, NOT TO EXCEED 6 TABS IN 24 HRS. ACUTE PAIN EXCEPTIO N active Not Available Not Available No t Available alprazolam 0.5 mg tablet 1 TABLET EVERY NIGHT ONCE A DAY ORALLY 20 DAYS active Not Available Not Available No t Available hydromorph one 2 mg tablet 1 TAB ORALLY ROUTE EVERY 4 HR NEEDED FOR PAIN, NOT TO EXCEED 6 TAB IN 24 HRS ACUTE PAIN EXCEPTIO N active Not Available Not Available No t Available primidone 250 mg tablet TAKE ONE TABLET BY MOUTH AT BEDTIME active Not Available Not Available No t Available prednisolo ne acetate 1 % eye drops,susp ension INSTILL ONE DROP INTO EACH EYE TWICE DAILY FOR 3 WEEKS, THEN STOP active Not Available Not Available No t Available meclizine 25 mg tablet TAKE ONE TABLET BY MOUTH THREE TIMES A DAY ( IN THE MORNING, AT NOON, AND AT BEDTIME ) NEEDED FOR DIZZINES S FOR UP TO 10 DAYS active Not Available Not Available No t Available benzonatat e 100 mg capsule TAKE ONE CAPSULE 4 TIMES A DAY 12/22 completed Not Available Not Available Not Available dexamethas one 2 mg tablet 05/13 completed Not Available Not Available Not Available cephalexin 500 mg capsule TAKE BY MOUTH 1 HOUR PRIOR TO PROCEDUR E active Not Available Not Available No t Available paroxetine 30 mg tablet TAKE ONE TABLET BY MOUTH ONE TIME DAILY active Not Available Not Available No t Available paroxetine 20 mg tablet TAKE 1 TABLET BY MOUTH TWICE A DAY 11/15 completed Not Available Not Available Not Available pantoprazo le 40 mg tablet,del ayed release TAKE ONE TABLET BY MOUTH ONE TIME DAILY active Not Available Not Available No t Available simvastati n 20 mg tablet TAKE ONE TABLET BY MOUTH DAILY active Not Available Not Available No t Available erythromyc in 5 mg/gram (0.5 %) eye ointment APPLY 1 APPLICAT ION IN BOTH EYES NIGHTLY 01/09 completed Not Available Not Available Not Available cyanocobal ariza (vit B-12) 1,000 mcg/mL injection solution Inject 1 mL every month by intramus cular route. 11/10 completed Not Available Not Available Not Available esomeprazo le magnesium 40 mg capsule,de layed release TAKE 1 CAPSULE BY MOUTH EVERY DAY 11/19 completed Not Available Not Available Not Available dexamethas one 4 mg tablet TAKE TWO TABLETS BY MOUTH ONE TIME DAILY FOR 4 DAYS active Not Available Not Available No t Available promethazi ne 25 mg tablet active Not Available Not Available Not Available warfarin 5 mg tablet 11/14 completed Not Available Not Available Not Available losartan 25 mg tablet TAKE ONE TABLET BY MOUTH EVERY MORNING. TAKING ADDITION ALLY TO THE 50 MG IN THE AFTERNOO N active Not Available Not Available No t Available fluoxetine 10 mg capsule 11/15 completed Not Available Not Available Not Available triamcinol one acetonide 0.025 % topical ointment APPLY TO AFECTED AREA ON FACE TWICE DAILY X 5-7 DAYS. DO NOT USE LONGER THAN A WEEK. active Not Available Not Available No t Available omeprazole 20 mg capsule,de layed release Take 1 capsule every day by oral route. 04/24 completed Not Available Not Available Not Available mupirocin 2 % topical ointment SMALL AMOUNT BOTH NARES VIA QTIP TWICE A DAY X5 DAYS BEGIN 6 DAYS BEFORE DO NOT APPLY AM OF SURGERY active Not Available Not Available No t Available furosemide 20 mg tablet TAKE 1 TABLET BY MOUTH EVERY DAY 12/22 completed Not Available Not Available Not Available gabapentin 100 mg capsule TAKE 1 CAPSULE BY MOUTH AND TITRATE UP TO 3 CAPSULES BY MOUTH THREE TIMES A DAY active Not Available Not Available No t Available ergocalcif caio (vitamin D2) 1,250 mcg (50,000 unit) capsule TAKE 1 CAPSULE( S) EVERY WEEK BY ORAL ROUTE WITH MEALS FOR 28 DAYS. 05/12 completed not taking per pt Not Available Not Available Not Available clobetasol 0.05 % topical ointment APPLY TO VULVA AREAS UP TO TWO TIMES A DAY FOR ITCHING , THEN TAPER TO 1-2 TIMES PER WEEK active Not Available Not Available No t Available nystatin 100,000 unit/gram topical powder APPLY TO AFFECTED AREA(S) TOPICALL Y TWO TIMES A DAY active Not Available Not Available No t Available fluocinoni de 0.05 % topical solution APPLY TO SCALP TWICE A DAY X 2 WEEKS, NEEDED FLARE active Not Available Not Available No t Available cefuroxime axetil 500 mg tablet 12/22 completed Not Available Not Available Not Available levofloxac in 500 mg tablet 12/22 completed Not Available Not Available Not Available levofloxac in 750 mg tablet 05/12 completed Not Available Not Available Not Available methylpred nisolone 4 mg tablets in a dose pack FOLLOW THE DIRECTIO NS LISTED ON THE LABEL OR PROVIDED BY YOUR PHYSICIA N OR PHARMACI ST 01/20 completed Not Available Not Available Not Available albuterol sulfate HFA 90 mcg/actuat ion aerosol inhaler INHALE TWO PUFFS BY MOUTH EVERY 4 HOURS NEEDED active Not Available Not Available No t Available paroxetine 40 mg tablet Take 1 tablet every day by oral route for 30 days. 05/13 completed Not Available Not Available Not Available ipratropiu m bromide 42 mcg (0.06 %) nasal spray USE TWO SPRAYS IN EACH NOSTRIL TWICE DAILY active Not Available Not Available No t Available ketoconazo le 2 % topical cream 01/09 completed Not Available Not Available Not Available fluticason e propionate 50 mcg/actuat ion nasal spray,susp ension USE ONE SPRAY IN THE AFFECTED NOSTRIL TWICE A DAY active Not Available Not Available No t Available doxycyclin e hyclate 100 mg tablet 04/24 completed Not Available Not Available Not Available lamotrigin e 100 mg tablet TAKE ONE TABLET BY MOUTH TWICE A DAY active Not Available Not Available No t Available Sudafed 12 Hour 120 mg tablet,ext ended release TAKE ONE TABLET BY MOUTH EVERY 12 HOURS FOR 7 DAYS active Not Available Not Available No t Available mometasone 0.1 % topical cream APPLY TO EARS ONE TIME DAILY FOR ITCHING active Not Available Not Available No t Available amoxicilli n 875 mg-potassi um clavulanat e 125 mg tablet TAKE ONE TABLET BY MOUTH TWICE A DAY 01/20 completed Not Available Not Available Not Available amoxicilli n 500 mg-potassi um clavulanat e 125 mg tablet Take 1 tablet every 8 hours by oral route for 7 days. 06/22 completed Not Available Not Available Not Available paroxetine ER 37.5 mg tablet,ext ended release 24 hr TAKE 1 TABLET BY MOUTH EVERY DAY active Not Available Not Available No t Available azithromyc in 500 mg tablet Take 1 tablet twice a day by oral route after meals for 3 days. 05/13 completed Not Available Not Available Not Available aripiprazo le 10 mg tablet TAKE 1 TABLET BY MOUTH EVERY DAY 08/31 completed Not Available Not Available Not Available aripiprazo le 5 mg tablet TAKE 1 TABLET BY MOUTH EVERY DAY 05/13 completed Not Available Not Available Not Available ciprofloxa oswaldo 0.3 %-dexameth asone 0.1 % ear drops,susp ension INSTILL 4 DROPS INTO AFFECTED EAR(S) TWICE A DAY FOR 7 DAYS 01/20 completed Not Available Not Available Not Available rosuvastat in 20 mg tablet TAKE ONE TABLET BY MOUTH ONE TIME DAILY active Not Available Not Available No t Available rosuvastat in 40 mg tablet TAKE ONE TABLET BY MOUTH ONE TIME DAILY active Not Available Not Available No t Available Pexeva 40 mg tablet take 1 tablet by mouth daily. 11/14 completed Not Available Not Available Not Available Pexeva 20 mg tablet Take 1 tablet every day by oral route. 01/17 completed Not Available Not Available Not Available Pexeva 30 mg tablet Take 1 tablet every day by oral route. 11/15 completed Not Available Not Available Not Available VSL#3 450 billion cell oral powder packet Take 1 packet every day by oral route in the morning for 90 days. 07/15 completed Not Available Not Available Not Available [facility] 04/24 completed Not Available Not Available Not Available Calcium 500 01/23 completed Not Available Not Available Not Available hydrochlor othiazide 12.5 mg tablet 04/24 completed Not Available Not Available Not Available VSL#3 112.5 billion cell capsule Take 1 capsule twice a day by oral route for 30 days. 05/13 completed Not Available Not Available Not Available CoQ-10 01/23 completed Not Available Not Available Not Available diclofenac 1 % topical gel APPLY 2 GRAM TO THE AFFECTED AREA(S) BY TOPICAL ROUTE 4 TIMES PER DAY 05/13 completed Not Available Not Available Not Available Durezol 0.05 % eye drops 05/13 completed Not Available Not Available Not Available Dexilant 60 mg capsule, delayed release Take 1 capsule every day by oral route before breakfas t for 90 days. 11/15 completed Not Available Not Available Not Available BD Ultra-Fine Izabela Pen Needle 32 gauge x 5/32 FOR DAILY SAXENDA INJECTIO N 05/13 completed Not Available Not Available Not Available Suprep Bowel Prep Kit 17.5 gram-3.13 gram-1.6 gram oral solution Take as directed 01/09 completed Not Available Not Available Not Available Oxtellar XR 150 mg tablet,ext ended release TAKE 1 TABLET BY MOUTH EVERY DAYPA* * 04/01 completed Not Available Not Available Not Available Alcortin A 2 %-1 %-1 % topical gel APPLY A THIN LAYER TO AFFECTED AREA(S) TWO TIMES DAILY FOR 1 WEEK 05/13 completed Not Available Not Available Not Available OxyContin 10 mg tablet,cru sh resistant, extended release 11/14 completed Not Available Not Available Not Available Vitamin B12 active Not Available Not Available Not Available Fluzone High-Dose 0324-8808 (PF) 180 mcg/0.5 mL intramuscu lar syringe TO BE ADMINIST ERED BY PHARMACI ST FOR IMMUNIZA TION 08/05 completed Not Available Not Available Not Available Fluzone High-Dose 6928-7907 (PF) 180 mcg/0.5 mL intramuscu lar syringe TO BE ADMINIST ERED BY THE PHARMACI ST 08/05 completed Not Available Not Available Not Available Fluzone High-Dose (PF) 180 mcg/0.5 mL intramuscu lar syringe TO BE ADMINIST ERED BY PHARMACI ST FOR IMMUNIZA TION 05/13 completed Not Available Not Available Not Available Fluzone High-Dose 2018- (PF) 180 mcg/0.5 mL intramuscu lar syringe TO BE ADMINIST ERED BY PHARMACI ST FOR IMMUNIZA TION 05/13 completed Not Available Not Available Not Available Fluzone High-Dose Quad (PF) 240 mcg/0.7 mL IM syringe PHARMACY ADMINIST ERED 05/12 completed Not Available Not Available Not Available Vitals Date Recorded Body height Body mass index (BMI) Body weight Heart rate Oxygen saturation Oxygen saturation in Arterial blood by Pulse oximetry Systolic blood pressure Diastolic blood pressure Provider Name and Address Organization Details Last Updated DateTime 1 162.56 cm 37.8 kg/m2 93109.3 2 g 85 /min 95 % 95 % 132 mm[Hg] 90 mm[Hg] Harika Palafox, [employer] [address] 1 14:42:04 Date Recorded Body height Body mass index (BMI) Body weight Heart rate Respiratory rate Oxygen saturation Oxygen saturation in Arterial blood by Pulse oximetry Pain severity - 0-10 verbal numeric rating [Score] - Reported Systolic blood pressure Diastolic blood pressure Provider Name and Address Organization Details Last Updated DateTime 2 162.56 cm 41.2 kg/m2 732568. 17 g 88 /min 16 /min 98 % 98 % 0 122 mm[Hg] 85 mm[Hg] Allison Gillespie RN [facility] [address] 2 09:43:50 Date Recorded Body weight Heart rate Respiratory rate Oxygen saturation Oxygen saturation in Arterial blood by Pulse oximetry Body mass index (BMI) Body height Pain severity - 0-10 verbal numeric rating [Score] - Reported Systolic blood pressure Diastolic blood pressure Provider Name and Address Organization Details Last Updated DateTime 3 619455. 21 g 87 /min 16 /min 98 % 98 % 40.3 kg/m2 162.56 cm 1 128 mm[Hg] 83 mm[Hg] Allison Gillespie RN [facility] [address] 3 14:30:54 Date Recorded Body height Heart rate Respiratory rate Oxygen saturation Oxygen saturation in Arterial blood by Pulse oximetry Pain severity - 0-10 verbal numeric rating [Score] - Reported Body mass index (BMI) Body weight Systolic blood pressure Diastolic blood pressure Provider Name and Address Organization Details Last Updated DateTime 3 162.56 cm 87 /min 16 /min 98 % 98 % 0 41.2 kg/m2 456066. 17 g 128 mm[Hg] 83 mm[Hg] Allison Gillespie RN [facility] [address] 3 14:07:00 Date Recorded Body height Heart rate Respiratory rate Oxygen saturation Oxygen saturation in Arterial blood by Pulse oximetry Pain severity - 0-10 verbal numeric rating [Score] - Reported Body mass index (BMI) Body weight Systolic blood pressure Diastolic blood pressure Provider Name and Address Organization Details Last Updated DateTime 4 162.56 cm 87 /min 16 /min 98 % 98 % 0 42.9 kg/m2 869246. 09 g 122 mm[Hg] 82 mm[Hg] Allison Gillespie RN [facility] [address] 4 14:30:54 Social History Question Answer Notes LastModified by Organizat ion Details LastModified Time Tobacco Smoking Status Former Smoker [email or web address] 's Allison Gillespie RN [facility] [address] 01/17/2014 15:00:38 What Is Your Level Of Alcohol Consumption? Occasional 4-5 Wine Q Week Information not available 01/17/2014 What Is Your Level Of Caffeine Consumption? Moderate 2 Coffe Qd [email or web address] Information not available 01/17/2014 How Much Tobacco Do You Chew? None Information not available 01/22/2016 What Type Of Diet Are You Following? REGULAR Information not available 01/22/2016 Which Illicit Or Recreational Drugs Have You Used? 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 01/20/2023 Information not available 01/20/2023 Sex: Unknown Functional Status None recorded. Mental Status None recorded. Family History Relationship Description Onset Age of this Age Resolved Age Notes LastModified by Organization Details LastModified Time Father Old-age Not available 01/24/2016 16:26:31 Mother Cerebrovascu lar accident [email or web address] Not available 04/2015 16:26:31 Mother Myocardial infarction [email or web address] Not available 01/23 16:26:31 Maternal Grandfather Malignant neoplasm of liver [email or web address] Not available 2015 16:26:31 Medical History Condition Response Gastrointestinal Problems Y Anxiety Disorder Y Other Y Headaches or Migraines Y High Cholesterol Y GERD/Reflux Y Colon Polyps Y Abnormal Pap Smear N Colonoscopy Y Hypertension Y Depression Y Gynecological History Statement/Question Response If Post Menopausal, Age at Menopause [age] Date of Last Pap Smear 02/24/2014 Date of Last Mammogram 12/22/2013 Obstetrics History GPAL:G 3 P 2 0 1 2 Type Value Full Term 2 Induced 1 Living 2 Total 3 Immunizations Vaccine Type Date Status Note Provider Nam e and Address Organization Details Recorded Time Influenza, high-dose, trivalent, PF 8 completed Allison Gillespie RN [facility] Office null, [address] 01/10/2020 15:56:06 Influenza, high-dose, trivalent, PF 7 completed Allison Gillespie RN Clinic Office null, [address] 12/01/2019 15:38:31 Influenza, split virus, trivalent, preservative 8 rox Gillespie RN Clinic Office null, [address] 12/01/2019 15:38:31 Influenza, split virus, trivalent, preservative 4 completed Allison Gillespie RN Clinic Office null, [address] 12/01/2019 15:38:31 Influenza, split virus, trivalent, preservative 2 rox Gillespie RN Clinic Office null, [address] 12/01/2019 15:38:31 Pneumococcal conjugate PCV 13 7 rox Gillespie RN Clinic Office null, [address] 12/01/2019 15:38:31 Influenza, split virus, trivalent, preservative 0 rox Gillespie RN Clinic Office null, [address] 12/01/2019 15:38:31 Influenza, split virus, trivalent, preservative 1 rox Gillespie RN Clinic Office null, [address] 12/01/2019 15:38:31 Influenza, split virus, trivalent, preservative 9 completed Allison Gillespie RN Clinic Office null, [address] 12/01/2019 15:38:31 Influenza, high-dose, trivalent, PF 8 completed Harika Palafox [employer] null, [address] 12/22/2020 14:42:16 pneumococcal polysaccharide PPV23 0 completed Harika Palafox [employer] null, [address] 12/22/2020 14:42:16 zoster live 3 completed Harika Palafox [employer] null, [address] 12/22/2020 14:42:16 Influenza, high-dose, trivalent, PF 4 completed Ly Jude, RN null, [address] 03/31/2017 15:28:41 pneumococcal polysaccharide PPV23 0 completed Ly Roque, RN null, [address] 12/22/2017 09:52:35 Influenza, split virus, quadrivalent, preservative 6 completed Ly Roque, RN null, [address] 03/31/2017 15:28:41 pneumococcal polysaccharide PPV23 1 completed Ly Roque, RN null, [address] 03/31/2017 15:28:41 zoster live 3 completed Ly Roque, RN null, [address] 12/22/2017 09:52:36 Influenza, high-dose, trivalent, PF 5 completed Ly Roque, RN null, [address] 12/22/2017 09:52:35 Influenza, high-dose, trivalent, PF 4 completed Harika Palafox [employer] null, [address] 12/22/2020 14:42:16 Influenza, split virus, quadrivalent, preservative 7 completed Ly Roque, RN null, [address] 12/22/2017 09:52:35 Past Encounters Encounter ID Performer Location Encounter Start Date Encounter Closed Date Diagnosis/Indication Diagnosis SNOMED-CT Code Diagnosis ICD10 Code Diagnosis Note [id number] Gloria Morejon [facility] [address] [place] [address] 12/28/2013 11:02:14 12/28/2013 14:06:46 Dyspnea on exertion 98196275 because of her symptoms and her previous EKG having nonspecifi c ST-T changes (abnormal ekg), a stress test will be ordered. She has significan t osteoarthr itis of the knees and back pain and cannot do the treadmill. Because of this an adenosine stress test will be ordered. I suspect that she is also deconditio isela as well. Chronic back pain 851614287 she will followup with pain management . I explained that control of her back pain will be an essential part of her weight reduction program. We need to have her working with a grab jack man in order to help her lose weight. A referral to a grab jack man was given. Essential hypertension 31344007 her blood pressures have been stable. She will work on weight reduction program. Blood pressure goals were given. Hypercholesterolemia 72732026 her lipid profile goals were discussed. Her lipid profile will be rechecked. She will work on the above weight reduction program. Hyperglycemia 15116701 h er A1c will be rechecked. Ophthalmol ogy followup and proper foot care will be emphasized . Fatigue 46929051 the abo ve stress test will be ordered. A reconditio chuck program will be needed. Her labs will also include a CBC, CMP, TSH and B12 level. Vitamin D deficiency 27596147 her level will be checked to make sure that she is above 40 Megaloblas tic anemia due to vitamin B>12< deficiency 47766486 her level will be checked to make sure that she is above 812 [id number] [facility] [address] [place] [address] 01/17/2014 13:59:07 01/17/2014 15:38:32 Gastroesophageal reflux disease 192563835 Restarting Omeprazole 40 mg p.o. q. a.m. Also instructed patient on GERD lifestyle modificati ons. Pending response may require EGD to rule out GERD complicati ons. Patient understand s and agrees. Epigastric pain 07920362 Likely secondary to GERD however cannot rule out possible component of functional dyspepsia. Await response to restart of Omeprazole . Also instructed patient on GERD lifestyle modificati ons. As above, pending response may require EGD to rule out GERD complicati ons. Patient understand s and agrees. Obesity 580135138 S/p ~1 5 lb wt gain in past ~6 months. Advised patient on decreasing food portion sizes. Advised patient that a food portion is ~ the size of the palm of her hand and ~2 inches high. Advised patient of benefits from participat ing in [employer] or similar support group. Also encouraged patient to increase exercise by walking or working out in a pool if necessary. Will continue to monitor weight at follow up visits. May benefit from referral for bariatric sx. Patient understand s and agrees. Diarrhea 85630471 Etiolo gy uncertain. Should rule out infectious etiology versus inflammato ry versus thyroid disease versus dietary intoleranc e. Advised patient on increasing dietary fiber as well as avoiding lactose. Fiber literature given. In addition will r/o infection by requesting stool studies. Ruling out thyroid and celiac disease with lab work-see orders. Further evaluation pending response to dietary changes as well as lab results. History of polyp of colon 607577704 Pt s/p colonoscop y sig for TA in 2011. Risks of missed polyps explained to pt. For repeat colonoscop y in 2017. Pt underastan ds and agrees. [id number] Nina Martinez [facility] [employer] [address] [facility] [address] [place] [address] 02/24/2014 10:59:58 02/24/2014 11:44:28 Screening for malignant neoplasm of cervix [id number] Anxiety disorder 351551577 Depressive disorder 31109087 [id number] DIEGO LAY MD [facility] [employer] [address] [facility] [address] [place] [address] 04/01/2014 10:37:51 04/01/2014 11:20:38 Depressive disorder 43273702 Anxiety disorder 283735269 [id number] Gregoria He [facility] [address] [place] [address] 04/11/2014 10:59:53 04/11/2014 11:44:59 Migraine 67002264 Essential hypertension 37891183 Fatigue 28179369 Depressive disorder 20352198 Anxiety disorder [id number] DIEGO LAY MD [facility] [address] [facility] [address] [place] [address] 04/22/2014 10:20:42 04/22/2014 10:41:58 Depressive disorder 08739802 Anxiety disorder 612164103 Hypercholesterolemia 93033177 [id number] ANN-MARIE BLANCO MD [facility] [address] [place] [address] 11/14/2014 10:29:49 11/14/2014 11:48:46 Diarrhea 63629562 Advised patient that likely multifacto rial in origin with components secondary to dietary intoleranc e as well as low fiber intake especially since her diarrhea occurs primarily after breakfast and then she is fine for the rest of the day. Advised patient to increase dietary fiber as well as start a trial of a lactose free diet. (Lactose Intoleranc e lit given) If no improvemen t at follow-up visit will request repeat stool studies as well as lab work to rule out infectious versus other etiologies and consider repeating EGD and oral colonoscop y to rule out celiac disease as well as microscopi c colitis. May use Imodium as needed. Starting a trial of VSL #3 for possible component of IBS-D. Patient understand s and agrees. Obesity [id number] Patien t advised again on decreasing food portion sizes as well as increasing exercise by walking or working out in a pool if necessary. Again advised of possible benefit from participat ing in Weight Watchers or similar support group. Will continue to monitor weight loss at follow up visits. Patient understand s and agrees. Gastroesop hageal reflux disease [id number] Well-contr olled with current PPI regimen. To continue the same in addition to continuing lifestyle changes. Patient to inform office if symptoms recur. Patient understand s and agrees. History of polyp of colon 579896362 Pt s/p colonoscop y sig for TA in 2011. Risks of missed polyps explained to pt. For repeat colonoscop y in 2016. Pt underastan ds and agrees. Generalize d abdominal pain [id number] Etiology uncertain. S/p EGD & colonoscop y in 2011. Also advised pt to keep a food journal if symptoms recur. If symptoms recur to call office for possible evaluation w/ repeat EGD and colonoscop y. Pt understand s and agrees. [id number] ANN-MARIE BLANCO MD [facility] [address] [facility] [address] [place] [address] 04/24/2015 10:33:30 04/24/2015 11:48:16 Obesity 621389381 E66.9 Advised patient on decreasing food portion sizes. Advised patient that a food portion is ~ the size of the palm of her hand and ~2 inches high. Also encouraged patient to increase exercise by walking or working out in a pool if necessary. Will continue to monitor weight at follow up visits. Patient understand s and agrees. Epigastric pain 30037914 R10.13 Likely secondary to GERD however cannot rule out possible component of functional dyspepsia. Starting trial of PPI p.o. q. a.m. Also instructed patient on GERD lifestyle modificati ons. Pending response may require EGD to rule out GERD complicati ons. Patient understand s and agrees. Gastroesop hageal reflux disease 751732782 K21.9 S/p increasing dose of current PPI to BID without adequate response. Will change to different PPI. If no improvemen t may require EGD. Generalize d abdominal pain 430048959 R10.84 Resolved. To treat obesity as above. Also advised pt to keep a food journal if symptoms recur. If symptoms recur to call office for possible evaluation w/ imaging studies. Pt understand s and agrees. Diarrhea 99284809 R19.7 Much improved. Likely multifacto rial in origin with component of dietary intoleranc e as well as a previously low fiber diet. Advised patient to continue the high fiber diet as well as to avoid lactose containing foods. May also use Lactaid supplement s as well as Simethicon e (ie. Gas X, Phazyme) (Lactose Intoleranc e lit given previously ) To cont VSL #3. Patient to call office if diarrhea recurs. Patient understand s and agrees. History of polyp of colon 312211729 Z86.010 Pt s/p colonoscop y sig for TA in 2011. Risks of missed polyps explained to pt. For repeat colonoscop y in 2017. Pt underastan ds and agrees. Osteoporosis 40022254 M8 1.0 Due to risk of osteoporos is and patient's need for long-term PPI therapy, suggest bone density study to rule out osteopenia /osteoporo sis. Patient advised to continue Calcium + Vitamin D BID. Last BDS in 2013. Will schedule for bone density study with further recommenda tions pending results. [id number] BRAN GRAHAM MD [facility] [address] [place] [address] 07/07/2015 10:40:08 07/07/2015 11:24:01 Migraine 77655758 G43.909 Depressive disorder 3548 9007 F32.9 Anxiety disorder 2430419 06 F41.9 Essential hypertension 97318167 I10 Intracrani al meningioma 238482311 D32.0 Tremor 46922327 R25.1 [id number] BRAN GRAHAM MD [facility] [address] [place] [address] 11/30/2015 10:04:34 11/30/2015 10:38:32 Osteoporosis 99565466 M81.0 Generalize d abdominal pain 093159112 R10.84 Depressive disorder 3548 9007 F32.9 Anxiety disorder 5424899 06 F41.9 Migraine 75851593 G43.90 9 Intracrani al meningioma 203884252 D32.0 [id number] ANN-MARIE BLANCO MD [facility] [address] [place] [address] 01/22/2016 09:27:38 01/22/2016 11:11:48 Gastroesophageal reflux disease 913414716 K21.9 Well controlled with Nexium 40 mg qd 30 min before meals. To cont the same. To continue the same in addition to continuing lifestyle changes. Patient to inform office if symptoms recur. Patient understand s and agrees. Obesity 996856056 E66.9 BMI: 37.6 Prior visit pt at BMI 39.2 in 228.2 lbs. Pt has lost ~10 lbs since last visit. To cont on decreasing food portion sizes and exercising in pool and golfing. Spoke to pt about weight loss sx with Dr. Echevarria. Will continue to monitor weight at follow up visits. Patient understand s and agrees. Epigastric pain 76942379 R10.13 Resolved. To cont as above. Patient understand s and agrees. Diarrhea 13556871 R19.7 No improvemen t - see HPI. Pt baseline 4 BM qd. Likely multifacto rial in origin with component of dietary intoleranc e as well as a previously low fiber diet. Advised patient to continue the high fiber diet as well as to avoid lactose containing foods. Also advised to begin trial of no coffee qAM. To begin VSL#3 rather than OTC probiotic. Further recommenda tions pending response. Pt understand s and agrees. Osteoporosis 33557579 M8 1.0 Last visit, we ordered a BDS - do not see results. To cont calcium and vit-D supplement . Will check records further / reorder study. Pt understand s and agrees. Nausea 324372549 R11.0 Occasional symptoms. ? Secondary to PUD vs GERD vs dietary indiscreti ons vs gastropare sis. To continue Nexium therapy. Advised pt to take other Rx with food. Pt s/p normal thyroid studies. To call office if symptoms recur. In addition if symptoms recur will consider requesting celiac panel to rule out concomitan t illnesses. Pt understand s and agrees. History of polyp of colon 210906418 Z86.010 Pt s/p colonoscop y sig for TA in 2011. Risks of missed polyps explained to pt. For repeat colonoscop y in 2017. Pt understand s and agrees. [id number] ANN-MARIE BLANCO MD [facility] [address] [place] [address] 07/15/2016 09:54:00 07/15/2016 11:23:56 Gastroesophageal reflux disease 557834041 K21.9 Well controlled with Nexium 40 mg qd 30 min before meals however due to possible diarrhea as s/e will d/c and start a trial of Dexilant 60 mg qAM.Furthe r recommenda tions pending response to therapy as well as colonoscop y and lab results +/- EGD is TTG positive Abdominal pain 27961801 R10.9 Likely multifacto rial in origin with a component secondary to patient's diarrhea.? Lactose intoleranc e.Await response to new dietary regimen including avoidance of coffee and lactose.Al so await colonoscop y results. Further recommenda tions to follow.May require initiation of antispasmo dic. Abdominal bloating 39700 6843 R14.0 Symptoms still persist despite attempts to change her diet.Likel y multifacto rial in origin with component of dietary intoleranc e as well as a previously low fiber diet. Advised patient to continue to avoid lactose containing foods. May also use Lactaid supplement s as well as Simethicon e (ie. Gas X, Phazyme) (Lactose Intoleranc e lit given previously ) In addition to avoid other gas promoting foods. Gas literature given. Also advised patient that may benefit from a trial of probiotics . Pt understand s and agrees. Diarrhea 39475277 R19.7 No improvemen t - see HPI. Pt baseline 4 BM qd. Likely multifacto rial in origin with component of dietary intoleranc e as well as a previously low fiber diet.Advis ed patient to continue the high fiber diet as well as to avoid lactose containing foods.Also advised to begin trial of no coffee qAM.During patient's screening colonoscop y will obtain biopsies to rule out microscopi c colitis.Fu rther recommenda tions pending response & results.Pt understand s and agrees. Obesity 380150253 E66.9 Patient admits to a very sedentary lifestyle as well as depression which decreases her activity.P atient advised again on decreasing food portion sizes as well as increasing exercise by walking or working out in a pool if necessary. Again advised of possible benefit from participat ing in Weight Watchers or similar support group. Will continue to monitor weight loss at follow up visits. Patient understand s and agrees. Screening for malignant neoplasm of colon 717429051 Z12.11 S/p colonoscop y in 2011 significan t for TA..Will schedule for a screening/ surveillan ce colonoscop y with future recommenda tions pending results. Risks of missed polyps, bleeding, pain & perforatio n explained to the pt. Pt understand s and agrees. History of polyp of colon 259913289 Z86.010 Pt s/p colonoscop y sig for TA in 2011. Risks of missed polyps explained to pt.For repeat colonoscop y now.Pt understand s and agrees. [id number] ANN-MARIE BLANCO MD [facility] [address] [place] [address] 11/15/2016 11:43:37 11/15/2016 14:03:40 Diarrhea 96516709 R19.7 Improved following dietary changes.Diane booth multifacto rial in origin with component of dietary intoleranc e as well as a previously low fiber diet. Advised patient to continue the high fiber diet as well as to avoid lactose containing foods. May also use Lactaid supplement s as well as Simethicon e (ie. Gas X, Phazyme) (Lactose Intoleranc e lit given previously ) Patient to call office if diarrhea recurs. Patient understand s and agrees. Polyp of colon 41715998 K63.5 Pt s/p colonoscop y 07/2016 sig for TA. Risks of missed polyps explained to pt. For repeat colonoscop y in ~07/2021. Pt understand s and agrees. Gastroesop hageal reflux disease 939772350 K21.9 Assoc w/ wine & [place] food ingestion despite Omeprazole 40 mg qD.To cont PPI- BID.To call if breakthrou gh symptoms continue/w orsen. Nausea 138990501 R11.0 Resolved. ? Secondary to PUD vs GERD vs dietary indiscreti ons vs gastropare sis. To continue PPI therapy. To call office if symptoms recur. In addition if symptoms recur will consider requesting thyroid studies and celiac panel to rule out concomitan t illnesses. Abdominal pain 46073676 R10.9 Resolved. Etiology uncertain. Also advised pt to keep a food journal if symptoms recur. If symptoms recur to call office for possible evaluation w/ imaging studies. Pt understand s and agrees. Obesity 200423426 E66.9 Patient admits to a very sedentary lifestyle as well as depression which decreases her activity.P t requesting informatio n about the gastric sleeve option.Dis cussed at length with pt.Referri ng to Dr. Echevarria. [id number] BRAN GRAHAM MD [facility] [address] [place] [address] 03/31/2017 14:55:45 03/31/2017 16:19:02 Osteoporosis 54602145 M81.0 Generalize d abdominal pain 081838011 R10.84 Depressive disorder 3548 9007 F32.9 Anxiety disorder 2486745 06 F41.9 Migraine 94373387 G43.90 9 Intracrani al meningioma 034870923 D32.0 Tremor 01526798 R25.1 Obesity 616602207 E66.9 Insomnia 447076638 G47.0 0 [id number] BRAN GRAHAM MD [facility] [address] [place] [address] 12/22/2017 09:36:44 12/22/2017 10:11:18 Osteoporosis 19109988 M81.0 Generalize d abdominal pain 204667141 R10.84 Depressive disorder 3548 9007 F32.9 Anxiety disorder 4674514 06 F41.9 Migraine 89197002 G43.90 9 Intracrani al meningioma 155751758 D32.0 Tremor 44632792 R25.1 Obesity 707095603 E66.9 Insomnia 191578246 G47.0 0 [id number] BRAN GRAHAM MD [facility] [address] [place] [address] 01/23/2018 08:44:25 01/23/2018 09:33:38 Osteoporosis 19694424 M81.0 Generalize d abdominal pain 418879939 R10.84 Depressive disorder 3548 9007 F32.9 Anxiety disorder 4606729 06 F41.9 Migraine 17346048 G43.90 9 Intracrani al meningioma 417301511 D32.0 Tremor 29471312 R25.1 Obesity 356034808 E66.9 Insomnia 605830262 G47.0 0 Seizure disorder 1855288 02 G40.676 [id number] Mag Hanna NP [facility] [address] [place] [address] 03/10/2018 14:22:03 03/10/2018 15:16:03 Abdominal pain 91377112 R10.9 Will check CBC and CT and treat for presumed diverticul itis. She is advised to follow a low-residu e, bland diet for 2-3 days and advance as tolerated. Increase fluids to offset losses from frequent diarrhea. Signs and symptoms of dehydratio n are discussed. She is to present to the ED if she develops severe abdominal pain, hardness of the abdomen, bleeding per rectum. Diarrhea 21854357 R19.7 [id number] BRAN GRAHAM MD [facility] [address] [place] [address] 03/11/2018 12:54:27 03/11/2018 13:54:24 Osteoporosis 62776939 M81.0 Anxiety disorder 2376540 06 F41.9 Seizure disorder 9311233 02 G40.909 Generalize d abdominal pain 746323514 R10.84 Depressive disorder 3548 9007 F32.9 Tremor 07752450 R25.1 Migraine 59179275 G43.90 9 Intracrani al meningioma 777706430 D32.0 Obesity 025130203 E66.9 Insomnia 189467311 G47.0 0 [id number] BRAN GRAHAM MD [facility] [address] [place] [address] 04/01/2018 09:55:40 04/01/2018 10:25:46 Osteoporosis 47066086 M81.0 Anxiety disorder 5199077 06 F41.9 Seizure disorder 5095277 02 G40.909 Generalize d abdominal pain 547132179 R10.84 Depressive disorder 3548 9007 F32.9 Tremor 70001181 R25.1 Migraine 17674583 G43.90 9 Intracrani al meningioma 415208950 D32.0 Obesity 744767144 E66.9 Insomnia 664384902 G47.0 0 [id number] ANN-MARIE BLANCO MD [facility] [address] [place] [address] 06/22/2018 15:32:39 06/24/2018 10:42:07 Diarrhea 22041681 R19.7 Watery, explosive, w/ urgency, x~2-3 weeks, following a course of abx. Etiology uncertain. Should rule out infectious etiology versus inflammato ry versus thyroid disease versus dietary intoleranc e. Advised patient on increasing dietary fiber as well as avoiding lactose. Fiber literature given. In addition will r/o infection by requesting stool studies. Ruling out thyroid and celiac disease with lab work-see orders. Further evaluation pending response to dietary changes as well as lab results. Polyp of colon 02129249 K63.5 Pt s/p colonoscop y 07/2016 sig for TA. Risks of missed polyps explained to pt. For repeat colonoscop y in ~07/2021 or sooner PRN. Pt understand s and agrees. Gastroesop hageal reflux disease 637176654 K21.9 Well-contr olled with Nexium 40 mg qAM. To continue the same in addition to continuing lifestyle changes. Patient to inform office if symptoms recur. Patient understand s and agrees. Obesity 934015675 E66.9 BMI = 41, up from 38.6.Pt reports +++ stress over the past year.Patie nt advised again on decreasing food portion sizes as well as increasing exercise by walking or working out in a pool if necessary due to arthritis. Will continue to monitor weight loss at follow up visits. Patient understand s and agrees. Abdominal bloating 76528 9008 R14.0 Symptoms still persist despite attempts to change her diet.Likel y multifacto rial in origin with component of dietary intoleranc e as well as a previously low fiber diet. Advised patient to continue to avoid lactose containing foods. May also use Lactaid supplement s as well as Simethicon e (ie. Gas X, Phazyme) (Lactose Intoleranc e lit given previously ) In addition to avoid other gas promoting foods. Gas literature given. Also advised patient that may benefit from a trial of probiotics . Pt understand s and agrees. Osteoporosis 56113389 M8 1.0 Last BDS was in 2016. Due to risk of osteoporos is and patient's need for long-term PPI therapy, suggest bone density study to rule out osteopenia /osteoporo sis. Patient advised to continue Calcium + Vitamin D BID. Due to ++ stress and acute diarrhea, pt opting to defer BDS for now. At next visit will schedule for bone density study with further recommenda tions pending results. [id number] BRAN GRAHAM MD [facility] [address] [place] [address] 07/23/2018 14:54:08 07/23/2018 15:25:51 Intracranial meningioma 311734026 D32.0 Seizure disorder 5686826 02 G40.909 Anxiety disorder 7469082 06 F41.9 Depressive disorder 3548 9007 F32.9 Tremor 79101477 R25.1 Migraine 16989655 G43.90 9 Obesity 546147234 E66.9 Disorder o f vitamin B12 433108327 E53.8 [id number] BRAN GRAHAM MD [facility] [address] [place] [address] 05/13/2019 09:44:20 05/13/2019 10:24:58 Intracranial meningioma 740732182 D32.0 Depressive disorder 3548 9007 F32.9 Seizure disorder 5463711 02 G40.909 Disorder o f vitamin B12 715177384 E53.8 Anxiety disorder 3606836 06 F41.9 Tremor 68055951 R25.1 Migraine 39199337 G43.90 9 Obesity 134560695 E66.9 [id number] BRAN GRAHAM MD [facility] [address] [place] [address] 09/01/2019 11:23:50 09/01/2019 12:35:29 Intracranial meningioma 144559884 D32.0 Depressive disorder 3548 9007 F32.9 Disorder o f vitamin B12 449839870 E53.8 Seizure disorder 7615759 02 G40.909 Anxiety disorder 1652660 06 F41.9 Tremor 16801867 R25.1 Migraine 37702159 G43.90 9 Obesity 549542382 E66.9 [id number] BRAN GRAHAM MD [facility] [address] [place] [address] 11/11/2019 12:57:58 11/11/2019 14:50:24 Tremor 00747761 R25.1 Intracrani al meningioma 959820227 D32.0 Depressive disorder 3548 9007 F32.9 Seizure disorder 3651779 02 G40.909 Anxiety disorder 2308229 06 F41.9 Migraine 88610799 G43.90 9 Obesity 970533955 E66.9 [id number] ANN-MARIE BLANCO MD [facility] [address] [place] [address] 11/22/2019 10:54:04 11/22/2019 12:19:21 Diarrhea 60881278 R19.7 ~1-3 loose stools daily, +/- fecal incontinen ce, despite dietary changes. Pt reluctant to try other Rx at present. Alsos/pVis biome without result.To go for colonoscop y with random bx's and stool collection . Other w/u including TFT, negative to date. If colon unrevealin g, to consider Xifaxin. Advised patient on increasing dietary fiber as well as avoiding lactose. Fiber literature given previously . Polyp of colon 98977529 K63.5 Pt s/p colonoscop y 07/2016 sig for TA. Risks of missed polyps explained to pt. For repeat colonoscop y in ~07/2021 or sooner PRN. Pt understand s and agrees. Gastroesop hageal reflux disease 579947666 K21.9 Well-contr olled with Omeprazole 40 mg qAM. To continue the same in addition to continuing lifestyle changes. Patient to inform office if symptoms recur. Patient understand s and agrees. Obesity 633209910 E66.9 BMI = 42.9, up from 41, up from 38.6. ~250 lbsPt reports +++ stress over the past year.Patie nt advised again on decreasing food portion sizes as well as increasing exercise by walking or working out in a pool if necessary due to arthritis. Will continue to monitor weight loss at follow up visits. Patient understand s and agrees. Abdominal bloating 53094 9009 R14.0 Symptoms still persist despite attempts to change her diet.Likel y multifacto rial in origin with component of dietary intoleranc e as well as a previously low fiber diet. Advised patient to continue to avoid lactose containing foods. May also use Lactaid supplement s as well as Simethicon e (ie. Gas X, Phazyme) (Lactose Intoleranc e lit given previously ) In addition to avoid other gas promoting foods. Gas literature given. Also advised patient that may benefit from a trial of probiotics . Pt understand s and agrees. Osteoporosis 86225611 M8 1.0 Last BDS was in 2016. Due to risk of osteoporos is and patient's need for long-term PPI therapy, suggest bone density study to rule out osteopenia /osteoporo sis. Patient advised to continue Calcium + Vitamin D BID. Due to ++ stress and acute diarrhea, pt opting to defer BDS for now. At next visit will schedule for bone density study with further recommenda tions pending results. Incontinence of feces 72 383052 R15.9 Etiology likely multifacto rial in origin with components secondary to watery / loose stools as well as possible decreased sphincter tone. Advised patient to increase dietary fiber in an attempt to increase stool bulk. Also advised patient to perform anal sphincter strengthen ing exercises several times daily. Fiber literature given. To call office if episodes continue. If episodes do continue, will consider referral for rectal manometry and possible biofeedbac k training. Pre-surgery testing 1104 62915 Z01.89 For COVID testing prior to any outpt GI procedure. Dysphagia 59763796 R13.1 0 Likely secondary to patient's GERD. To continue Omeprazole 40 mg po qAM. Also scheduling for EGD to rule out GERD complicati ons as well as EoE. If patient does not respond to the PPI trial, may also require esophagram to rule out motility disorder. [id number] ANN-MARIE BLANCO MD [facility] [address] [place] [address] 01/10/2020 15:52:14 01/10/2020 16:48:46 Diarrhea 47715596 R19.7 Currently having ~1-2 semi formed BM daily w/ VSL #3 and Metamucil. Any loose episodes are assoc w/ dietary indiscreti ons. S/p EGD & colonoscop y 11/2019- S/p Neg random bx's Other w/u including TFT, negative to date. If colon unrevealin g, to consider Xifaxin. Advised patient on increasing dietary fiber as well as avoiding lactose. Fiber literature given previously . Polyp of colon 76707884 K63.5 S/p repeat colon 12/01/2019- Neg for colitis, + for a polyp in the rectosigmo id colon.Risk s of missed polyps explained to pt. For repeat colonoscop y in ~5 years or sooner PRN. Pt understand s and agrees. Pt s/p colonoscop y 07/2016 sig for TA. Gastroesop hageal reflux disease 275105499 K21.9 S/p EGD 12/01/2019- Sig for gastritis. Well-contr olled with Omeprazole 40 mg qAM. To continue the same in addition to continuing lifestyle changes. Patient to inform office if symptoms recur. Patient understand s and agrees. Obesity 737601455 E66.9 2' to leg brace, pt not weighed today however she claims ~7 lb wt loss since her last visit. BMI = 42.9, up from 41, up from 38.6. ~250 lbsPt reports +++ stress over the past year.Patie nt advised again on decreasing food portion sizes as well as increasing exercise by walking or working out in a pool if necessary due to arthritis. Will continue to monitor weight loss at follow up visits. Patient understand s and agrees. Abdominal bloating 72683 0691 R14.0 Much improved. Likely multifacto rial in origin with component of dietary intoleranc e as well as a previously low fiber diet. Advised patient to continue the high fiber diet as well as to avoid lactose containing foods. May also use Lactaid supplement s as well as Simethicon e (ie. Gas X, Phazyme) (Lactose Intoleranc e lit given previously ) understand s and agrees. Osteoporosis 77206132 M8 1.0 Last BDS was in 2016. Due to risk of osteoporos is and patient's need for long-term PPI therapy, suggest bone density study to rule out osteopenia /osteoporo sis. Patient advised to continue Calcium + Vitamin D BID. Due to ++ stress and acute diarrhea, pt opting to defer BDS for now. At next visit will schedule for bone density study with further recommenda tions pending results. Incontinence of feces 72 316196 R15.9 Secondary to watery / loose stools as since her symptoms resolved following an increase in fiber in her diet and increasing the bulk of her stool. Advised patient to continue her high fiber diets. Also advised patient to perform anal sphincter strengthen ing exercises several times daily and as needed. Fiber literature given previously . To call office if episodes recur. Dysphagia 59710732 R13.1 0 Resolved. Likely secondary to patient's GERD. To continue Omeprazole 40 mg po qAM. Also scheduling for EGD to rule out GERD complicati ons as well as EoE. If patient does not respond to the PPI trial, may also require esophagram to rule out motility disorder. Fatigue 78855733 R53.83 ? 2' to changed to Dr. Ori Cancino. Requesting copies of lab work. To f/u w/ Dr. Cancino as well. [id number] BRAN GRAHAM MD [facility] [address] [place] [address] 05/12/2020 13:45:36 05/12/2020 14:33:39 Tremor 90641272 R25.1 Intracrani al meningioma 358176180 D32.0 Depressive disorder 3548 9007 F32.9 Seizure disorder 6636589 02 G40.909 Anxiety disorder 4568252 06 F41.9 Migraine 46407169 G43.90 9 Obesity 891571965 E66.9 Memory impairment 046473 006 R41.3 [id number] BRAN GRAHAM MD [facility] [address] [place] [address] 12/22/2020 14:34:50 12/22/2020 15:09:13 Memory impairment 378202793 R41.3 Tremor 09683847 R25.1 Seizure disorder 1395196 02 G40.909 Intracrani al meningioma 289050661 D32.0 Depressive disorder 3548 9007 F32.9 Anxiety disorder [id number] F41.9 Migraine [id number] G43.90 9 Obesity 618212173 E66.9 [id number] SOCORRO WU APRN [facility] [address] [place] [address] 11/19/2021 09:28:15 11/19/2021 10:06:14 Diarrhea 20319027 R19.7 Improved. Currently having 2-3 formed BM daily w/ Metamucil. 1-2 loose stool episodes a month now. Any loose episodes are assoc w/ dietary indiscreti ons.Advise d patient on increasing dietary fiber as well as avoiding lactose.Fi harika literature given previously . S/p EGD & colonoscop y 11/2019- S/p Neg random bx'sOther w/u including TFT, negative to date. Polyp of colon [id number] K63.5 S/p repeat colon 12/01/2019- Neg for colitis, + for a polyp in the rectosigmo id colon. Risks of missed polyps explained to pt. For repeat colonoscop y in ~5 years or sooner PRN. Pt understand s and agrees. Pt s/p colonoscop y 07/2016 sig for TA. Gastroesop hageal reflux disease [id number] K21.9 S/p EGD 12/01/2019- Sig for gastritis. Well-contr olled with Pantoprazo le 40mg qAM. Previously on Omeprazole 40 qAM. To continue the same in addition to continuing lifestyle changes. Patient to inform office if symptoms recur. Patient understand s and agrees. Obesity [id number] E66.9 BMI = 41.2 no change in weight since last visitPatie nt advised again on decreasing food portion sizes as well as increasing exercise by walking or working out in a pool if necessary due to arthritis. Will continue to monitor weight loss at follow up visits.Emilie caraballo understand s and agrees. Abdominal bloating 13411 9008 R14.0 Much improved. 1-2 episodes a month. Likely multifacto rial in origin with component of dietary intoleranc e as well as a previously low fiber diet. Advised patient to continue the high fiber diet as well as to avoid lactose containing foods. May also use Lactaid supplement s as well as Simethicon e (ie. Gas X, Phazyme) (Lactose Intoleranc e lit given previously ) understand s and agrees. Osteoporosis 28671535 M8 5.88 Last BDS was in 2015. Due to risk of osteoporos is and patient's need for long-term PPI therapy, suggest bone density study to rule out osteopenia /osteoporo sis. Will schedule for bone density study with further recommenda tions pending results. Patient advised to continue Calcium + Vitamin D BID. Incontinence of feces 72 093482 R15.9 Secondary to watery / loose stools as since her symptoms resolved following an increase in fiber in her diet and increasing the bulk of her stool with metamucil. Advised patient to continue her high fiber diets. Also advised patient to perform anal sphincter strengthen ing exercises several times daily and as needed. Fiber literature given previously . To call office if episodes recur. Dysphagia 70686384 R13.1 0 Resolved. Likely secondary to patient's GERD. To continue Pantoprazo le 40 mg po qAM. If symptoms return or worsen may also require esophagram to rule out motility disorder. [id number] SOCORRO WU APRN [facility] [address] [place] [address] 11/29/2022 13:55:48 11/29/2022 14:42:52 Diarrhea 57457847 R19.7 Improved. Currently having 2-3 formed BM daily w/ Metamucil. 1-2 loose stool episodes a month now. Any loose episodes are assoc w/ dietary indiscreti ons.Advise d patient on increasing dietary fiber as well as avoiding lactose.Fi harika literature given previously . S/p EGD & colonoscop y 11/2019- S/p Neg random bx'sOther w/u including TFT, negative to date. Polyp of colon 05922083 K63.5 S/p repeat colon 12/01/2019- Neg for colitis, + for a polyp in the rectosigmo id colon. Risks of missed polyps explained to pt. For repeat colonoscop y in ~5 years or sooner PRN. Pt understand s and agrees. Pt s/p colonoscop y 07/2016 sig for TA. Gastroesop hageal reflux disease 107979720 K21.9 S/p EGD 12/01/2019- Sig for gastritis. Well-contr olled with Pantoprazo le 40mg qAM. Previously on Omeprazole 40 qAM. To continue the same in addition to continuing lifestyle changes. Patient to inform office if symptoms recur. Patient understand s and agrees. Obesity [id number] E66.9 Patient advised again on decreasing food portion sizes as well as increasing exercise by walking or working out in a pool if necessary due to arthritis. Will continue to monitor weight loss at follow up visits.Pat ietim understand s and agrees. Abdominal bloating 53813 9008 R14.0 Much improved. 1-2 episodes a month. Likely multifacto rial in origin with component of dietary intoleranc e as well as a previously low fiber diet. Advised patient to continue the high fiber diet as well as to avoid lactose containing foods. May also use Lactaid supplement s as well as Simethicon e (ie. Gas X, Phazyme) (Lactose Intoleranc e lit given previously ) understand s and agrees. Osteoporosis 54193645 M8 5.88 BDS 2021 sig for osteopenic changesDue to risk of osteoporos is and patient's need for long-term PPI therapy, suggest bone density study to rule out osteopenia /osteoporo sis. Will schedule for bone density study with further recommenda tions pending results. Patient advised to continue Calcium + Vitamin D BID. Incontinence of feces 72 351465 R15.9 Secondary to watery / loose stools as since her symptoms resolved following an increase in fiber in her diet and increasing the bulk of her stool with metamucil. Advised patient to continue her high fiber diets. Also advised patient to perform anal sphincter strengthen ing exercises several times daily and as needed. Fiber literature given previously . To call office if episodes recur. Dysphagia 07154042 R13.1 0 Resolved. Likely secondary to patient's GERD. To continue Pantoprazo le 40 mg po qAM. If symptoms return or worsen may also require esophagram to rule out motility disorder. [id number] ANN-MARIE BLANCO MD [facility] [address] [place] [address] 01/20/2023 13:51:03 01/20/2023 14:47:42 Gastroesophageal reflux disease without esophagitis 655914372 K21.9 + Breakthrou gh symptoms despite Protonix qAM. Improved w/ Pepcid PRN.To take the Pepcid qHS, not PRN.To continue the same in addition to continuing lifestyle changes.Santy frost to inform office if symptoms recur.Alina ent understand s and agrees. Previously on Omeprazole 40 qAM. Diarrhea 25593354 R19.7 Well controlled w/ Metamucil + protein shake qAM. Having 1-2 soft stools daily.Any loose episodes are assoc w/ dietary indiscreti ons.Advise d patient on increasing dietary fiber as well as avoiding lactose.Fi harika literature given previously . S/p EGD & colonoscop y 11/2019- S/p Neg random bx'sOther w/u including TFT, negative to date. Polyp of colon 89563476 K63.5 S/p repeat colon 12/01/2019- Neg for colitis, + for a polyp in the rectosigmo id colon. Risks of missed polyps explained to pt. For repeat colonoscop y in ~5 years or sooner PRN. Pt understand s and agrees. Pt s/p colonoscop y 07/2016 sig for TA. Obesity 867180666 E66.9 BMI= 41.2, ~240 lbs. S/p ~5 lb wt gain since her last visit.Alina ent advised again on decreasing food portion sizes as well as increasing exercise by walking or working out in a pool if necessary due to arthritis. Will continue to monitor weight loss at follow up visits.Emilie caraballo understand s and agrees. Osteoporosis 31484872 M8 5.88 BDS 2021 sig for osteopenic changesDue to risk of osteoporos is and patient's need for long-term PPI therapy, suggest bone density study to rule out osteopenia /osteoporo sis. Will schedule for bone density study with further recommenda tions pending results. Patient advised to continue Calcium + Vitamin D BID. Incontinence of feces 72 338333 R15.9 Resolved. Advised patient to continue her high fiber diets. Also advised patient to perform anal sphincter strengthen ing exercises several times daily and as needed. Fiber literature given previously . To call office if episodes recur. [id number] ANN-MARIE BLANCO MD [facility] [address] [place] [address] 06/09/2023 13:22:19 06/09/2023 15:08:44 Gastroesophageal reflux disease without esophagitis [id number] K21.9 Well controlled w/ Protonix 40 mg qAM & Pepcid 40 mg qHS PRN (usually 1-2/wk)To cont the same in addition to continuing lifestyle changes.Santy frost to inform office if symptoms recur.Alina ent understand s and agrees. Previously on Omeprazole 40 qAM & Protonix qAM only. Diarrhea 45577765 R19.7 Well controlled w/ Metamucil + protein shake qAM. Having 1-2 soft stools daily.Any loose episodes are assoc w/ dietary indiscreti ons.Advise d patient on increasing dietary fiber as well as avoiding lactose.Fi harika literature given previously . S/p EGD & colonoscop y 11/2019- S/p Neg random bx'sOther w/u including TFT, negative to date. Polyp of colon 70651501 K63.5 S/p repeat colon 12/01/2019- Neg for colitis, + for a polyp in the rectosigmo id colon. Risks of missed polyps explained to pt. For repeat colonoscop y in ~5 years or sooner PRN. Pt understand s and agrees. Pt s/p colonoscop y 07/2016 sig for TA. Obesity 683446650 E66.9 BMI= 41.2, ~240 lbs. S/p ~5 lb wt gain since her last visit.Alina wild advised again on decreasing food portion sizes as well as increasing exercise by walking or working out in a pool if necessary due to arthritis. Will continue to monitor weight loss at follow up visits.Emilie caraballo understand s and agrees. Osteoporosis 00764177 M8 5.88 BDS 12/25/2021 sig for osteopenic changesDue to risk of osteoporos is and patient's need for long-term PPI therapy, suggest bone density study to rule out osteopenia /osteoporo sis. Will schedule for bone density study with further recommenda tions pending results. Patient advised to continue Calcium + Vitamin D BID. Incontinence of feces 72 570841 R15.9 S/p recurrence ~2/month.T o keep a food journalTo increase her Metamucil to BID.Advise d patient to continue her high fiber diets. Also advised patient to perform anal sphincter strengthen ing exercises several times daily and as needed. Fiber literature given previously . To call office if episodes recur. Dysphagia 82490034 R13.1 0 Resolved. Likely secondary to patient's GERD. To continue Omeprazole 40 mg po qAM. Also scheduling for EGD to rule out GERD complicati ons as well as EoE. If patient does not respond to the PPI trial, may also require esophagram to rule out motility disorder. Health Concerns Section Related Observation LastModified by Organization Detai ls LastModified Time None Recorded Concern Status LastModified by Organization Details LastModified Time None Recorded Advance Directives Directive None Recorded Payers Encounter Date Sequence Insurance Name Policy Number Policy Schilling Covered Member ID Schilling Member ID Guarantor Name 12/22/2020 1 [place] Silvana F Payam [id number] Silvana F Payam 12/22/2020 2 [employer] OPTION - PLAN F (MEDICARE SUPPLEMENT) Silvana F Jain Payam [id number] Silvana F Payam 11/19/2021 1 [place] Silvana F Payam [id number] Silvana F Payam 11/19/2021 2 [employer] OPTION - PLAN F (MEDICARE SUPPLEMENT) Silvana F Jain Payam [id number] Silvana F Payam 11/29/2022 1 [place] Silvana F Payam [id number] Silvana F Payam 11/29/2022 2 [employer] OPTION - PLAN F (MEDICARE SUPPLEMENT) Silvana F Jain Payam [id number] Silvana F Payam 01/20/2023 1 [place] Silvana F Payam [id number] Silvana F Payam 01/20/2023 2 [employer] OPTION - PLAN F (MEDICARE SUPPLEMENT) Silvana F Jain Payam [id number] Silvana F Payam 06/09/2023 1 [place] Silvana F Payam [id number] Silvana F Payam 06/09/2023 2 [employer] OPTION - PLAN F (MEDICARE SUPPLEMENT) Silvana Jackson [id number] Silvana Jackson Notes Date Note Type Note Provider Name and Address Organization Details Recorded Time 11/19/2021 text/html DysphagiaReporte d bypatient.Location:thro at; mid esophagus Quality:burning Severity:improving; no regurgitationReflux/KATIA DReported bypatient.Symptoms:asym ptomatic; no difficulty swallowing; no pain swallowing; no postprandial pain; improved with pantoprazole 40 mg qd Severity:improving Context:non-smoker; no drug/alcohol abuse; no drug alcohol withdrawal; not related to food/drink Associated Symptoms:no frequent coughing; no feeling of fullness/mass in throat; no hoarseness; no food getting stuck; no belching/burping; no vomiting; not vomiting blood; no regurgitation; no shortness of breath; no chest pain; no heartburn; no difficulty swallowing; no pain when swallowing; no bad taste; no decreased appetite; no weight loss; no black/tarry stools; no fatigue; no throat painNotes:EGD and colonoscopy with DR Blanco 11/2019 sig for Mild chronic gastritis with features of reactive gastropathy. Negative for Helicobacter pylori, Negative for intestinal metaplasia, No evidence of colitis, microscopic colitis, Hyperplastic polyp in the rectosigmoid colon recommendations to repeat colonoscopy in 5 years.Abdominal PainReported bypatient.Location:Impr brandon Onset/Timing:better Associated Symptoms:no fever; no chills; no blood in the urine; no heartburn; no shortness of breathNotes:Pt reports bloatingColorectal PolypReported bypatient.Location:prev ipous colonoscopy with Dr Blanco in 07/30/2016 impression TA cecum, Hyperplastic polyps in sigmoid, X2 Associated Symptoms:no hematochezia; no nausea; no vomiting; normal appetite; no constipation; no change in stool caliber;diarrheaDiarrhe aReported bypatient.Quality:impro ving; diarrhea resolved Blood work 07/15/2016 IGA low:33 TT Stool culture 02/2018 was negative Severity:moderate Onset/Timing:no nocturnal symptoms; 1-3 times a day Context:no one else with similar symptoms; no recent camping; no recent picnic; no possible food sources; no recent travel Alleviating Factors:imodium; Probiotics Associated Symptoms:no abdominal pain; no excess gas; no fever; no rash; no joint pain; no weight loss; no nausea; no vomiting; no heartburn; no blood in stool; no mucus in stool; no black or tarry stools; no weakness; no nutrient deficiencyNotes:Pt reports watery diarrhea has improved with Metamucil. 1-2 formed bm a day. Denies sig lactose ingestion.Gastroenterol ogy General HPIReported bypatient.Notes:OSTEOPO ROSAZIZA Last bone density 01/31/2016 normal bone mineral density.Due for repeat OBESITY - BMI:41.2 ~240 Lbs PT is a 81 y/o F with PMHx sig for GERD, colon polyp, HLP, meningioma- s/p brain sx, seizures and osteoporosis who presents for f/u of multiple GI complaints. SOCORRO WU APRN [address] [place], [address], [facility] [place] 11/19/2021 11:00:50 11/29/2022 text/html DysphagiaReporte d bypatient.Location:thro at; mid esophagus Quality:burning Severity:improving; no regurgitationReflux/KATIA DReported bypatient.Symptoms:asym ptomatic; no difficulty swallowing; no pain swallowing; no postprandial pain; improved with pantoprazole 40 mg qd Severity:improving Context:non-smoker; no drug/alcohol abuse; no drug alcohol withdrawal; not related to food/drink Associated Symptoms:no frequent coughing; no feeling of fullness/mass in throat; no hoarseness; no food getting stuck; no belching/burping; no vomiting; not vomiting blood; no regurgitation; no shortness of breath; no chest pain; no heartburn; no difficulty swallowing; no pain when swallowing; no bad taste; no decreased appetite; no weight loss; no black/tarry stools; no fatigue; no throat painNotes:EGD and colonoscopy with DR Blanco 11/2019 sig for Mild chronic gastritis with features of reactive gastropathy. Negative for Helicobacter pylori, Negative for intestinal metaplasia, No evidence of colitis, microscopic colitis, Hyperplastic polyp in the rectosigmoid colon recommendations to repeat colonoscopy in 5 years.Abdominal PainReported bypatient.Location:Impr brandon Onset/Timing:better Associated Symptoms:no fever; no chills; no blood in the urine; no heartburn; no shortness of breathNotes:Pt reports bloating improvedColorectal PolypReported bypatient.Location:prev ipous colonoscopy with Dr Blanco in 07/30/2016 impression TA cecum, Hyperplastic polyps in sigmoid, X2 Associated Symptoms:no hematochezia; no nausea; no vomiting; normal appetite; no constipation; no change in stool caliber;diarrheaDiarrhe aReported bypatient.Quality:impro ving; diarrhea resolved Blood work 07/15/2016 IGA low:33 TT Stool culture 02/2018 was negative Severity:moderate Onset/Timing:no nocturnal symptoms; 1-3 times a day Context:no one else with similar symptoms; no recent camping; no recent picnic; no possible food sources; no recent travel Alleviating Factors:imodium; Probiotics Associated Symptoms:no abdominal pain; no excess gas; no fever; no rash; no joint pain; no weight loss; no nausea; no vomiting; no heartburn; no blood in stool; no mucus in stool; no black or tarry stools; no weakness; no nutrient deficiencyNotes:Pt reports watery diarrhea has improved with Metamucil. 1-2 formed bm a day. Denies sig lactose ingestion.Gastroenterol ogy General HPIReported bypatient.Notes:OSTEOPO ROSIS Last bone density 01/31/2016 normal bone mineral density.Due for repeat OBESITY - BMI:41.2 ~240 Lbs PT is a 81 y/o F with PMHx sig for GERD, colon polyp, HLP, meningioma- s/p brain sx, seizures and osteoporosis who presents for f/u of multiple GI complaints. SOCORRO WU, BIOMEDICAL INSTRUMENT TECHNICIAN [address] [place], [address], [facility] [place] 11/29/2022 15:51:57 01/20/2023 text/html DysphagiaReporte d bypatient.Location:thro at; mid esophagus Quality:burning Severity:improving; no regurgitationReflux/KATIA DReported bypatient.Symptoms:asym ptomatic; no difficulty swallowing; no pain swallowing; no postprandial pain; improved with pantoprazole 40 mg qd Severity:improving Context:non-smoker; no drug/alcohol abuse; no drug alcohol withdrawal; not related to food/drink Associated Symptoms:no frequent coughing; no feeling of fullness/mass in throat; no hoarseness; no food getting stuck; no belching/burping; no vomiting; not vomiting blood; no regurgitation; no shortness of breath; no chest pain; no heartburn; no difficulty swallowing; no pain when swallowing; no bad taste; no decreased appetite; no weight loss; no black/tarry stools; no fatigue; no throat painNotes:EGD and colonoscopy with DR Blanco 11/2019 sig for Mild chronic gastritis with features of reactive gastropathy. Negative for Helicobacter pylori, Negative for intestinal metaplasia, No evidence of colitis, microscopic colitis, Hyperplastic polyp in the rectosigmoid colon recommendations to repeat colonoscopy in 5 years.Abdominal PainReported bypatient.Location:Impr brandon Onset/Timing:better Associated Symptoms:no fever; no chills; no blood in the urine; no heartburn; no shortness of breathNotes:Pt reports bloating improvedColorectal PolypReported bypatient.Location:prev ipous colonoscopy with Dr Blanco in 07/30/2016 impression TA cecum, Hyperplastic polyps in sigmoid, X2 Associated Symptoms:no hematochezia; no nausea; no vomiting; normal appetite; no constipation; no change in stool caliber;diarrheaDiarrhe aReported bypatient.Quality:impro ving; diarrhea resolved Blood work 07/15/2016 IGA low:33 TT Stool culture 02/2018 was negative Severity:moderate Onset/Timing:no nocturnal symptoms; 1-3 times a day Context:no one else with similar symptoms; no recent camping; no recent picnic; no possible food sources; no recent travel Alleviating Factors:imodium; Probiotics Associated Symptoms:no abdominal pain; no excess gas; no fever; no rash; no joint pain; no weight loss; no nausea; no vomiting; no heartburn; no blood in stool; no mucus in stool; no black or tarry stools; no weakness; no nutrient deficiencyNotes:Pt reports watery diarrhea has improved with Metamucil. 1-2 formed bm a day. Denies sig lactose ingestion.Gastroenterol ogy General HPIReported bypatient.Notes:OSTEOPO ROSIS Last bone density 01/31/2016 normal bone mineral density.Bone density 12/2021 Impression: Osteopenia OBESITY - BMI:41.2 ~240 Lbs PT is an 82 y/o F with PMHx sig for GERD, colon polyp, HLP, meningioma- s/p brain sx, seizures and osteoporosis who presents for f/u of multiple GI complaints. ANN-MARIE BLANCO MD [facility] [place], [address], [facility] [place] 02/07/2023 16:58:22 06/09/2023 text/html DysphagiaReporte d bypatient.Location:thro at; mid esophagus Quality:burning Severity:improving; no regurgitationReflux/KATIA DReported bypatient.Symptoms:asym ptomatic; no difficulty swallowing; no pain swallowing; no postprandial pain; improved with pantoprazole 40 mg qd Severity:improving Context:non-smoker; no drug/alcohol abuse; no drug alcohol withdrawal; not related to food/drink Associated Symptoms:no frequent coughing; no feeling of fullness/mass in throat; no hoarseness; no food getting stuck; no belching/burping; no vomiting; not vomiting blood; no regurgitation; no shortness of breath; no chest pain; no heartburn; no difficulty swallowing; no pain when swallowing; no bad taste; no decreased appetite; no weight loss; no black/tarry stools; no fatigue; no throat painNotes:EGD and colonoscopy with DR Blanco 11/2019 sig for Mild chronic gastritis with features of reactive gastropathy. Negative for Helicobacter pylori, Negative for intestinal metaplasia, No evidence of colitis, microscopic colitis, Hyperplastic polyp in the rectosigmoid colon recommendations to repeat colonoscopy in 5 years.Abdominal PainReported bypatient.Location:Impr brandon Onset/Timing:better Associated Symptoms:no fever; no chills; no blood in the urine; no heartburn; no shortness of breathNotes:Pt reports bloating improvedColorectal PolypReported bypatient.Location:prev ipous colonoscopy with Dr Blanco in 07/30/2016 impression TA cecum, Hyperplastic polyps in sigmoid, X2 Associated Symptoms:no hematochezia; no nausea; no vomiting; normal appetite; no constipation; no change in stool caliber;diarrheaDiarrhe aReported bypatient.Quality:impro ving; diarrhea resolved Blood work 07/15/2016 IGA low:33 TT Stool culture 02/2018 was negative Severity:moderate Onset/Timing:no nocturnal symptoms; 1-3 times a day Context:no one else with similar symptoms; no recent camping; no recent picnic; no possible food sources; no recent travel Alleviating Factors:imodium; Probiotics Associated Symptoms:no abdominal pain; no excess gas; no fever; no rash; no joint pain; no weight loss; no nausea; no vomiting; no heartburn; no blood in stool; no mucus in stool; no black or tarry stools; no weakness; no nutrient deficiencyNotes:Pt reports watery diarrhea has improved with Metamucil. 1-2 formed bm a day. Denies sig lactose ingestion.Gastroenterol ogy General HPIReported bypatient.Notes:OSTEOPO ROSIS Last bone density 01/31/2016 normal bone mineral density.Bone density 12/2021 Impression: Osteopenia OBESITY - BMI:41.2 ~240 Lbs PT is an 82 y/o F with PMHx sig for GERD, colon polyp, HLP, meningioma- s/p brain sx, seizures and osteoporosis who presents for f/u of multiple GI complaints. ANN-MARIE BLANCO MD [address] [place], [address], [facility] [place] 07/24/2023 13:47:18 OBGyn Episode No OBEpisode recorded.
--- OUTSIDE RECORDS SUMMARY | 2024-05-30 10:31 | XMS_ITS | Data Portability ---
Author Organization [place] [facility] [place] Address [address] [facility] [address] [place] [address] Assessment Encounter Date Assessment Date Assessment LastModified by Organization Details LastModified Time 09/22/2023 09/22/2023 1. Sepsis second zuleima to cystoscopy - Patient has recovered from the sepsis episode following hospitalization. Educated the patient on the importance of premedication with antibiotics before any future cystoscopy procedures to prevent recurrence. 2. Overactive bladder - Continue monitoring the patient's symptoms and response to current management. Consider further evaluation and treatment options if symptoms worsen or do not improve. 3. Hypertension - Continue current antihypertensive medications and monitor blood pressure regularly. Encourage lifestyle modifications, including a low-sodium diet and regular exercise. 4. Hyperlipidemia - Continue current lipid-lowering medications and monitor lipid profile periodically. Encourage a heart-healthy diet and regular exercise. 5. Seizure disorder - No recent seizures reported. Continue current antiepileptic medications and monitor for any changes in seizure frequency or severity. 6. Mood disorder - Patient reports improvement in mood. Continue monitoring the patient's mental health status and adjust treatment as needed. 7. Type 2 diabetes mellitus - Current HbA1c: 5.7-5.9. Encourage lifestyle modifications, including a balanced diet and regular exercise. Consider adding an oral antidiabetic agent, such as Invokana, if HbA1c remains elevated or if the patient experiences weight gain. 8. Weight gain - Discussed the possibility of initiating a weight loss program, including dietary counseling and the use of Wegovy (semaglutide) from a compounding pharmacy. Encouraged the patient to consider this option and to discuss further at the next visit. 9. Cost concerns for medications - Addressed the patient's concerns regarding the cost of medications. Explore options for financial assistance or alternative medications if needed. Follow-up: - Schedule a follow-up appointment in one month to monitor the patient's progress and discuss any changes in treatment plans. Not available 09/22/2023 16:43:59 10/14/2023 10/14/2023 I have personall y seen and examined the patient with the nurse practitioner and agreed with the below outlined plan. I participated in the history taking, physical exam, treatment plan and counseling. raissa Not available 10/17/2023 10:21:45 10/23/2023 10/23/2023 1. Weight manage ment and diabetes prevention - Patient has been following a designed eating plan and has lost six pounds. Last hemoglobin A1c was 5.9. - Plan: a. Offered Mounjaro or tirzepatide as a treatment option, with the patient expressing interest in the compound form. b. Patient will come in for a follow-up visit to discuss the medication and administration. 2. Dermatitis on neck and scalp - Patient has been using Clovetazone for six days with some improvement but not complete resolution. - Plan: a. Prescribe selenium sulfide shampoo for daily use in the morning. b. Instruct the patient to continue using clobetasol twice a day, applying it at bedtime. c. Follow up on the progress of the treatment. 3. Urinary discharge and hematuria - Patient has a history of urinary discharge for two years and recent blood in urine. Previous cystoscopy led to hospitalization for sepsis. Patient has had a hysterectomy and endometrial biopsies, which were unremarkable. - Plan: a. Perform a urine test and urine culture to investigate the cause of the discharge and hematuria. b. Examine the external genital area, including the small bump reported by the patient. c. Follow up with appropriate treatment based on the results of the tests and examination. Not available 10/23/2023 14:51:28 11/19/2023 11/19/2023 1. Obesity - Plan: a. Continue tirzepatide 2.5 mg for weight loss, monitor progress, and consider increasing the dose to 5 mg after a month if needed. b. Encourage calorie deficit, adequate protein intake (100 grams/day), and consumption of essential vitamins. c. Recommend daily multivitamin. 2. Hypertension - Plan: a. Continue carvedilol and losartan for blood pressure management. b. Monitor blood pressure regularly. 3. Vitamin D deficiency - Plan: a. Continue taking vitamin D3 125 mg once a week. 4. Vaginitis - Plan: a. Nystatin cream for itching as needed. b. Discontinue estradiol due to bleeding side effect. 5. Overactive bladder - Plan: a. Consider evaluation for oxybutynin or other medications for overactive bladder management. b. Review records from OB and cystoscopy results. 6. Dermatitis - Plan: a. Discontinue clobetasol as advised by beater engineer helper. b. Follow beater engineer helper's recommendations for alternative creams. 7. Gastroesophageal reflux disease (GERD) - Plan: a. Continue famotidine and Nexium for stomach acid management. 8. Lower extremity edema - Plan: a. Continue furosemide for leg swelling management. 9. Allergic rhinitis - Plan: a. Await nasal spray delivery and use as directed. 10. Bipolar disorder - Plan: a. Continue lamotrigine (Lamictal) 1 tablet twice a day. 11. Hypothyroidism - Plan: a. Continue levothyroxine as prescribed. 12. Tremor - Plan: a. Continue primidone and propranolol for tremor management. 13. Depression - Plan: a. Continue paroxetine as prescribed. 14. Hypercholesterolemia - Plan: a. Continue rosuvastatin for cholesterol management. 15. Seborrheic dermatitis - Plan: a. Continue selenium sulfide shampoo as needed. Not available 11/19/2023 13:20:09 Plan of Treatment Reminders Order Date Submit Date Provider Last Modified By Organization Details Last Modified Time Details Appointments None recorded. Lab culture, urine 2023 024 bscheLiB [facility], [address] [place] [address], [address], [address], 5 05:15:08 urinalysis, complete 2023 024 [employer] [facility], [address] [place] [address], [facility] [address], [address], 5 05:15:04 Referral None recorded. Procedures None recorded. Surgeries None recorded. Imaging None recorded. Medication Orders tirzepatide (weight loss) 10 mg/0.5 mL subcutaneou s pen injector 2023 024 bschein [id number] [address], [address], [place], [address], 5 06:22:59 oxybutynin chloride ER 5 mg tablet,exte nded release 24 hr 2023 024 bschein [id number] [address], [address], [place], [address], 5 06:21:39 Estrace 0.01% (0.1 mg/gram) vaginal cream 2023 024 ANTHONY [id number] [address], [address], [place], [address], 4 13:11:38 metronidazo le 500 mg tablet 2023 024 ANTHONY [id number] [address], [address], [place], [address], 4 13:14:39 clobetasol 0.05 % scalp solution 2023 024 bschein [id number] [address], [address], [place], [address], 5 06:19:15 selenium sulfide 2.25 % shampoo 2023 024 bschein [id number] [address], [address], [place], [address], 5 06:19:36 nystatin 100,000 unit/gram topical cream 2023 024 bschein [id number] [address], [address], [place], [address], 5 06:19:59 clobetasol 0.05 % topical cream 07/23/ 2024 07/23/2 024 bschein [id number] [address], [address] [place], [address], 06:18:36 clobetasol 0.05 % topical gel 2023 024 bschein [id number] [address], [address] [place], [address], 06:18:56 Patient TargetsNo targets recorded. Patient Instructions Encounter Date Encounter Id Patient Instructions Last Modified By Organization Details Last Modified Time 09/22/2023 [id number] epilepsy: care instructions bschein Not available 04/19/2024 07:20:57 When You Want to Lose Weight: Care Instructions bschein Not available 04/19/2024 07:21:13 learning about m ood disorders bschein Not available 04/19/2024 07:21:45 hypothyroidism: care instructions bschein Not available 04/19/2024 07:21:29 high cholesterol : care instructions bschein Not available 04/19/2024 07:20:41 Date: September 21 Dear Maryam, Thank you for visiting today and discussing your health concerns with me. I appreciate your commitment to improving your health and am here to support you in this journey. Here are the rahman instructions and recommendations from our conversation: - Antibiotic Use: - For any future cystoscopies, ensure you are premedicated with antibiotics to prevent complications like sepsis. - Weight Management: - Consider starting a weight loss program. We discussed potentially using a compound form of Wegovy or semaglutide, which can be tailored to your needs and budget. The cost will vary depending on the dosage, ranging from $50 to $150 per month. - Dietary Changes: - Focus on altering your diet rather than reducing the amount of food you consume. This approach will be crucial in managing your weight and overall health. - Follow-Up: - I would like to see you in a month to evaluate your progress and make any necessary adjustments to your treatment plan. Please remember, these suggestions are tailored to your specific health needs and are designed to help you achieve your health goals. If you have any questions or need further clarification on the discussed points, do not hesitate to contact our office. Warm regards, Noe Camp MD [facility] Not available 09/22/2023 16:44:06 10/23/2023 [id number] atrophic vaginit is: care instructions bschein Not available 04/19/2024 07:16:55 bacterial vaginosis: care instructions bschein Not available 04/19/2024 07:17:10 When You Want to Lose Weight: Care Instructions bschein Not available 04/19/2024 07:15:09 high cholesterol : care instructions bschein Not available 04/19/2024 07:14:34 epilepsy: care instructions bschein Not available 04/19/2024 07:15:26 Urinary Tract Infection (UTI) in Women: Care Instructions bschein Not available 04/19/2024 07:16:41 learning about breast cancer screening bschein Not available 04/19/2024 07:16:21 vaginal yeast infection: care instructions bschein Not available 04/19/2024 07:17:26 hypothyroidism: care instructions bschein Not available 04/19/2024 07:14:50 heart failure: c are instructions bschein Not available 04/19/2024 07:15:44 learning about heart failure bschein Not available 04/19/2024 07:16:02 Date: Fri From: Dr. Noe Camp, [facility], Family [facility] Dear [facility], Thank you for visiting today and discussing your health concerns. I appreciate your dedication to improving your health and am pleased to hear about your progress with the new eating plan. Here are the rahman instructions and recommendations from our consultation: - Medication for Diabetes Management: - Consider starting Mounjaro (tirzepatide) for diabetes management. This will cost approximately $100 per month for a compound form, as it is not covered by insurance. - Treatment for Dermatitis: - Continue using clobetasol twice daily at bedtime. - Start using selenium sulfide shampoo daily. Apply it to the scalp, lather thoroughly, rinse well, and then apply clobetasol. - Concerns Regarding Urinary Discharge and Bleeding: - Perform a urine test and urine culture to investigate the cause of the urinary discharge and blood. - Examine the external genital area, especially in light of the new symptoms post-cystoscopy. Please ensure to follow up on these tests and treatments as recommended. We will review the results and adjust your treatment plan accordingly. Thank you once again for your proactive approach to your health. Looking forward to seeing you soon. Best regards, Dr. Noe Camp [facility], Family Medicine Not available 10/23/2023 14:51:31 11/19/2023 [id number] atrophic vaginit is: care instructions bschein Not available 04/19/2024 07:13:04 learning about t ype 2 diabetes bschein Not available 04/19/2024 07:12:47 type 2 diabetes: care instructions bschein Not available 04/19/2024 07:12:30 When You Want to Lose Weight: Care Instructions bschein Not available 04/19/2024 07:12:14 high cholesterol : care instructions bschein Not available 04/19/2024 07:10:53 hypothyroidism: care instructions bschein Not available 04/19/2024 07:11:52 learning about m ood disorders bschein Not available 04/19/2024 07:10:37 Date: November 19, 2023 Dear Maryam, Thank you for visiting us today. We appreciate your commitment to improving your health and are here to support you in your journey. Here is a summary of the rahman instructions and recommendations from today's consultation: - Medication Adjustments: - Continue taking Tirzepatide for weight loss, starting at 2.5 mg, and potentially increasing to 5 mg after a month based on your progress. - Ensure regular bowel movements; use Metamucil if you experience constipation. - Take Vitamin D3 once a week (125 mg). - Continue using Nystatin cream for itching as needed. - Clobetasol should no longer be used; follow your beater engineer helper's advice regarding alternative creams. - Maintain current prescriptions for carvedilol, famotidine, Nexium, furosemide, lamotrigine, levothyroxine, losartan, paroxetine, primidone, propranolol, rosuvastatin, and selenium sulfide shampoo. - Diet and Nutrition: - Follow a calorie deficit diet while ensuring adequate intake of proteins (about 100 grams per day) and vitamins. - Include chicken and fish in your diet. - Aim to lose approximately 10 pounds in the first month and continue towards a target weight of 210-220 pounds by Todd. - General Health: - Your recent lab work and blood pressure readings are excellent. - Monitor any symptoms of overactive bladder and discuss potential treatments. - Follow-Up: - Please schedule a follow-up appointment in one month to assess medication effects and weight loss progress. We have provided educational materials on diet and medication management during your visit. Please review these at your convenience to better understand your treatment plan. Thank you for trusting us with your care. We look forward to seeing you again soon. Sincerely, Dr. Noe Camp, Spread CutterRehabilitation Consultant: Family Medicine Not available 11/19/2023 13:20:25 12/22/2023 [id number] sleep apnea: car e instructions bschein Not available 04/19/2024 07:13:37 learning about t ype 2 diabetes Not available 12/22/2023 13:19:46 type 2 diabetes: care instructions bschein Not available 04/19/2024 07:13:54 epilepsy: care instructions bschein Not available 04/19/2024 07:13:19 Reason for Referral None Reported. Results Created Date Observation Date Name Description Value Unit Range Abnormal Flag Note LastModifiedBy Organization Detail LastModifiedTime 10/23/19 24 10/24/2023 SURES WAB(R ) ADVAN FLORIDALMA VAGIN ITIS PLUS, TMA sureswab(R) adv bacterial vaginosis (bv), tma NEGATI VE negati ve normal Not Available [facility] [address] [place], [address], 10/24/2023 19:01:24 10/23/19 24 10/24/2023 SURES WAB(R ) ADVAN FLORIDALMA VAGIN ITIS PLUS, TMA alfredo species NOT DETECT ED not detect ed normal Not Available [facility] [place] [facility] [address] [place], [address], 10/24/2023 19:01:24 10/23/19 24 10/24/2023 SURES WAB(R ) ADVAN FLORIDALMA VAGIN ITIS PLUS, TMA alfredo glabrata NOT DETECT ED not detect ed normal [place] da speci es C. albic ans, C. tropi calis , C. parap luís is, and/o r C. wm simon is can be detec lucas, but not diffe renti ated, in the [place] da spp. resul t. Not Available [facility] [place] [facility] [address], [place], [address], 10/24/2023 19:01:24 10/23/19 24 10/24/2023 SURES WAB(R ) ADVAN FLORIDALMA VAGIN ITIS PLUS, TMA trichomonas vaginalis (TV), tma NOT DETECT ED not detect ed normal Not Available [facility] [place] [facility] [address], [place], [address], 10/24/2023 19:01:24 10/23/19 24 10/24/2023 SURES WAB(R ) ADVAN FLORIDALMA VAGIN ITIS PLUS, TMA chlamydia trachomatis RNA, tma, urogenital NOT DETECT ED not detect ed normal Not Available [facility] [place] [facility] [address], [place], [address], 10/24/2023 19:01:24 10/23/19 24 10/24/2023 SURES WAB(R ) ADVAN FLORIDALMA VAGIN ITIS PLUS, TMA neisseria gonorrhoeae RNA, tma, urogenital NOT DETECT ED not detect ed normal For addit ional infor maykel gutierrez refer to https ://ed ucati on.qu lazarus CFX BATTERY. 99 Fahrenheit/f aq/FA Q154 (This link is being provi ded for infor ida horn/ edgardo gupta purpo ses only. ) Not Available [facility] [place] [facility] [address], [place], [address], 10/24/2023 19:01:24 10/23/19 24 10/25/2023 URINA LYSIS , COMPL ETE color YELLOW yellow normal Not Available [facility] [place] [facility] [address], [place], [address], 10/25/2023 01:50:50 10/23/1910/2410/25/2023 URINA LYSIS , COMPL ETE appearance CLEAR clear normal Not Available [facility] [place] [facility] [address], [place], [address], 10/25/2023 01:50:50 10/23/1910/25/2023 URINA LYSIS , COMPL ETE specific gravity 1.013 1.001- 1.035 normal Not Available [facility] [place] [facility] [address], [place], [address], 10/25/2023 01:50:50 10/23/19 24 10/25/2023 URINA LYSIS , COMPL ETE pH 6.0 5.0-8. 0 normal Not Available [facility] [place] [facility] [address], [place], [address], 10/25/2023 01:50:50 10/23/19 24 10/25/2023 URINA LYSIS , COMPL ETE glucose NEGATI VE negati ve normal Not Available [facility] [place] [facility] [address], [place], [address], 10/25/2023 01:50:50 10/23/19 24 10/25/2023 URINA LYSIS , COMPL ETE bilirubin NEGATI VE negati ve normal Not Available [facility] [place] [facility] [address], [place], [address], 10/25/2023 01:50:50 10/23/19 24 10/25/2023 URINA LYSIS , COMPL ETE ketones NEGATI VE negati ve normal Not Available [facility] [place] [facility] [address], [place], [address], 10/25/2023 01:50:50 10/23/19 24 10/25/2023 URINA LYSIS , COMPL ETE occult blood 2+ negati ve abnormal Not Available [facility] [place] [facility] [address], [place], [address], 10/25/2023 01:50:50 10/23/19 24 10/25/2023 URINA LYSIS , COMPL ETE protein NEGATI VE negati ve normal Not Available [facility] [place] [facility] [address], [place], [address], 10/25/2023 01:50:50 10/23/19 24 10/25/2023 URINA LYSIS , COMPL ETE nitrite NEGATI VE negati ve normal Not Available [facility] [place] [facility] [address], [place], [address], 10/25/2023 01:50:50 10/23/19 24 10/25/2023 URINA LYSIS , COMPL ETE leukocyte esterase NEGATI VE negati ve normal Not Available [facility] [address], [place], [address], 10/25/2023 01:50:50 10/23/19 24 10/25/2023 URINA LYSIS , COMPL ETE WBC NONE SEEN /hpf < or = 5 normal Not Available [facility] [place] [facility] [address], [place], [address], 10/25/2023 01:50:50 10/23/19 24 10/25/2023 URINA LYSIS , COMPL ETE RBC 3-10 /hpf < or = 2 abnormal Not Available [facility] [place] [facility] [address], [place], [address], 10/25/2023 01:50:50 10/23/19 24 10/25/2023 URINA LYSIS , COMPL ETE squamous epithelial cells 0-5 /hpf < or = 5 Not Available [facility] [place] [facility] [address], [place], [address], 10/25/2023 01:50:50 10/23/19 24 10/25/2023 URINA LYSIS , COMPL ETE bacteria NONE SEEN /hpf none seen normal Not Available [facility] [address], [place], [address], 10/25/2023 01:50:50 10/23/19 24 10/25/2023 URINA LYSIS , COMPL ETE hyaline cast NONE SEEN /lpf none seen normal Not Available [facility] [place] [facility] [address], [place], [address], 10/25/2023 01:50:50 10/23/19 24 10/25/2023 URINA LYSIS , COMPL ETE note This urine was jessica zed for the prese nce of WBC, RBC, bacte tonie, casts , and other forme d eleme nts. Only those eleme nts seen were repor lucas. Not Available [facility] [place] [facility] [address], [place], [address], 10/25/2023 01:50:50 10/23/19 24 10/25/2023 CULTU RE, URINE , ROUTI NE culture, urine, routine SEE NOTE CULTU RE, URINE , ROUTI NE Micro Numbe r: [id number] Test Statu s: Final Speci men Sourc e: Urine Speci men Quali ty: Adequ ate Resul [...] port Tube. Not Available [facility] [place] [facility] [address], [place], [address], 10/25/2023 01:50:53 10/09/19 24 10/09/2023 DEXA No observ [facility]ion [facility] [address], [place], [address], 04/19/2024 04:39:48 10/14/19 24 10/09/2023 MAMMO , scree chuck, digit al, bilat eral No observ ation record ed. [facility] [address], [place], [address], 04/19/2024 04:39:53 10/15/19 24 10/15/2023 US, breas t, unila teral No observ ation record ed. [facility] [address], [place], [address], 04/19/2024 04:39:44 Result Notes None recorded. Problems Name Problem SNOMED Code Status Onset Date Resolution Date Notes Provider Name and Address Organization Details Recorded Time Morbid obesity 488323511 Active 2022 Not Available [facility] 4 18:10:59 Osteoarthri tis 760753913 Active 2020 Not Available [facility] 4 18:10:59 Hypertensiv e disorder 02119972 Active 2020 Not Available [facility] 4 18:10:59 Hypothyroid ism 25710823 Active 2020 Not Available [facility] 4 18:10:59 Gastroesoph ageal reflux disease 125659575 Active 2020 Not Available [facility] 4 18:10:59 Hyperlipide juany 99476662 Active 2020 Not Available [facility] 4 18:10:59 Essential tremor 310848411 Active 2020 Not Available [facility] 4 18:10:59 Benign meningioma 852801518 Active 2020 Not Available [facility] 4 18:10:59 Depressive disorder 37846207 Active 2020 Not Available [facility] 4 18:10:59 Seizure disorder 797930051 Active 2020 Not Available [facility] 4 18:10:59 Acute bronchitis 76067562 Active 2022 Not Available [facility] 4 18:10:59 Obesity 536185218 Active 2022 [facility] 4 18:10:59 Prediabetes 391769143 Active 2023 [address], [place], [address], [place] [facility] 4 13:09:55 Congestive heart failure 24923660 Active [address], [place], [address], [place] [facility] 4 13:06:49 Obstructive sleep apnea syndrome 19801187 Active [address], [place], [address], [place] [facility] 4 13:19:37 Vaginitis 47198422 Active [address], [place], [address], [place] [facility] 4 13:35:52 Atopic dermatitis 40884349 Active [address], [place], [address], [place] [facility] 4 15:30:53 Herpes zoster 3656444 Active [address], [place], [address], [place] [facility] 4 15:32:23 Pruritic rash 96268472 Active [address], [place], [address], [place] [facility] 4 15:34:37 Seborrheic keratosis 144850217 Active [address], [place], [address], [place] [facility] 4 15:39:14 Seborrheic dermatitis of scalp 190210058 Active 2023 [facility] [address], [place], [address], [place] [facility] 4 14:41:41 Acute cystitis 72282912 Active 2023 [facility] [address], [place], [address], [place] [facility] 4 14:47:31 Atrophic vaginitis 33187134 Active 2023 [facility] [address], [place], [address], [place] [facility] 4 15:18:29 Bacterial vaginosis 999014172 Active 2023 [facility] [address], [place], [address], [place] [facility] 4 15:18:43 Candidiasis of vagina 36603665 Active 2023 [facility] [address], [place], [address], [place] [facility] 4 15:18:49 Type 2 diabetes mellitus 64023258 Active 2023 MD [address], [place], [address], [place] [facility] 4 19:56:34 Overactive urinary bladder 014995007 Active 2023 MD [address], [place], [address], [place] [facility] 4 13:12:56 Intentional weight loss 679114361 Active 2023 Noe Camp MD [address], [place], [address], [place] [facility] 13:22:00 Problem Notes None recorded. Procedures Surgical History Date Name Laterality Status Provider Name and Address Organization Details Recorded Time 024 AWV completed MD Jacob [address], [place], [address], [place] [facility] 06/03/2023 13:30:05 023 AWV completed Jessika Sanders NP [address], [place], [address], [place] [facility] 04/23/2022 13:21:18 022 AWV completed MD [address], [place], [address], [place] [facility] 04/03/2021 15:13:15 021 AWV completed Henry Mullins [place] [facility] 01/23/2021 13:41:04 021 Knee Replacement completed Joaquin Akhtar [place] [facility] 10/03/2020 15:20:10 016 Knee Replacement completed Joaquin Cardona [facility] 10/03/2020 15:20:25 977 Cholecystectomy completed Joaquin Akhtar [place] [facility] 10/03/2020 15:19:41 Imaging Results Imaging Date Name Status LastModified by [facility] Details LastModified Time 10/09/2023 DEXA completed [facility] [address], [place], [address], 04/19/2024 04:39:48 10/09/2023 MAMMO, screening, digital, bilateral completed [facility] [address], [place], [address], 04/19/2024 04:39:53 10/15/2023 [place], breast, unilateral completed [facility] [address], [place], [address], 04/19/2024 04:39:44 Procedure Notes None recorded. Medical Equipment None Reported. Allergies Allergen ID Allergen Name Allergen Category Reaction Reaction Severity Criticality Documentation Date Start Date Code Code System Note Provider Name and Address Organization Details Recorded Time 5367 ciproflox acin medicatio n Not available Not available Not available 09/25/20222022 2551 RxNorm ISA Welch - [facility] [place] [facility] [place] 14:06:59 Medications Name Sig Start Date Stop Date Status Note LastModified by Organization Details LastModified Time Prescriptio n - New active Not Available Not Available Not Available losartan 50 mg tablet Take 1 tablet every day by oral route. 2023 active PT BP is 157/8 5 Not Available Not Available Not Available fluoxetine 40 mg capsule TAKE 1 CAPSULE BY MOUTH EVERY DAY 01/30 completed Not Available Not Available Not Available amoxicillin 500 mg capsule TAKE 4 CAPSULES BY MOUTH 1 HOUR PRIOR TO DENTAL APPOINTME NT 01/12 completed Not Available Not Available Not Available furosemide 40 mg tablet TAKE ONE TABLET BY MOUTH ONE TIME DAILY active Not Available Not Available No t Available terconazole 0.4 % vaginal cream INSERT ONE APPLICATO RFUL VAGINALLY ONE TIME DAILY AT BEDTIME FOR 7 DAYS 01/30 completed Not Available Not Available Not Available primidone 50 mg tablet TAKE 3 TABLETS BY MOUTH EVERY MORNING 01/30 completed Not Available Not Available Not Available carvedilol 6.25 mg tablet TAKE ONE TABLET BY MOUTH TWICE A DAY active Not Available Not Available No t Available doxycycline hyclate 100 mg capsule TAKE ONE CAPSULE BY MOUTH TWICE A DAY FOR 5 DAYS active Not Available Not Available No t Available venlafaxine 75 mg tablet 01/12 completed Not Available Not Available Not Available ketoconazol e 2 % shampoo WASH HAIR 3 X WEEKLY. LEAVE LATHERED 5 MINUTES BEFORE RINSING 01/30 completed Not Available Not Available Not Available nabumetone 750 mg tablet TAKE ONE TABLET BY MOUTH TWICE A DAY active Not Available Not Available No t Available azithromyci n 250 mg tablet TAKE TWO TABLETS BY MOUTH ON DAY 1, THEN TAKE ONE TABLET ONE TIME DAILY ON DAYS 2-5 active Not Available Not Available No t Available cefpodoxime 100 mg tablet 09/21 completed Not Available Not Available Not Available fluconazole 150 mg tablet TAKE ONE TABLET BY MOUTH ONE TIME DAILY FOR 7 DAYS 09/21 completed Not Available Not Available Not Available benzonatate 200 mg capsule TAKE ONE CAPSULE BY MOUTH THREE TIMES A DAY NEEDED 07/15 completed Not Available Not Available Not Available famotidine 40 mg tablet TAKE ONE TABLET BY MOUTH AT BEDTIME active Not Available Not Available No t Available propranolol ER 60 mg capsule,24 hr,extended release TAKE ONE CAPSULE BY MOUTH ONE TIME DAILY 2023 active Not Available Not Available Not Avai lable clobetasol 0.05 % topical cream APPLY A THIN LAYER TO THE AFFECTED AREA(S) TOPICALLL Y TWO TIMES A DAY 11/18 completed Not Available Not Available Not Available metronidazo le 500 mg tablet TAKE ONE TABLET BY MOUTH TWICE A DAY FOR 7 DAYS 11/18 completed Not Available Not Available Not Available sulfamethox azole 800 mg-trimetho prim 160 mg tablet TAKE ONE TABLET BY MOUTH EVERY 12 HOURS FOR 10 DAYS active Not Available Not Available No t Available triamcinolo ne acetonide 0.1 % topical cream APPLY TO AFFECTED AREA(S) TWO TIMES A DAY FOR 2 WEEKS 11/18 completed Not Available Not Available Not Available amoxicillin 500 mg tablet 01/12 completed Not Available Not Available Not Available carvedilol 3.125 mg tablet TAKE 1 TABLET BY MOUTH TWICE A DAY 02/20 completed Not Available Not Available Not Available [...] BY TOPICAL ROUTE TWO TIMES A DAY 11/18 completed Not Available Not Available Not Available [...] Not Available Not Available No t Available cephalexin 500 mg capsule TAKE BY MOUTH 1 HOUR PRIOR TO PROCEDURE 01/12 completed Not Available Not Available Not Available paroxetine 30 mg tablet TAKE 1 TABLET DAILY active Not Available Not Available No t Available pantoprazol e 40 mg tablet,héctor yed release Take 1 tablet every day by oral route. 2023 active Not Available Not Available Not Avai lable simvastatin 20 mg tablet TAKE ONE TABLET BY MOUTH DAILY 01/12 completed Not Available Not Available Not Available esomeprazol e magnesium 40 mg capsule,del ayed release 11/18 completed Not Available Not Available Not Available nystatin 100,000 unit/gram topical cream APPLY TO AFFECTED AREA(S) TWO TIMES A DAY active Not Available Not Available No t Available dexamethaso ne 4 mg tablet TAKE TWO TABLETS BY MOUTH ONE TIME DAILY FOR 4 DAYS 06/19 completed Not Available Not Available Not Available losartan 25 mg tablet TAKE ONE TABLET BY MOUTH EVERY MORNING 09/21 completed Not Available Not Available Not Available triamcinolo ne acetonide 0.025 % topical ointment APPLY TO AFECTED AREA ON FACE TWICE DAILY X 5-7 DAYS. DO NOT USE LONGER THAN A WEEK. 01/30 completed Not Available Not Available Not Available oxybutynin chloride ER 5 mg tablet,exte nded release 24 hr TAKE ONE TABLET BY MOUTH ONE TIME DAILY active Not Available Not Available No t Available gabapentin 100 mg capsule TAKE 1 CAPSULE BY MOUTH AND TITRATE UP TO 3 CAPSULES BY MOUTH THREE TIMES A DAY active Not Available Not Available No t Available clobetasol 0.05 % topical ointment APPLY TO VULVA AREAS UP TO TWO TIMES A DAY FOR ITCHING , THEN TAPER TO 1-2 TIMES PER WEEK active Not Available Not Available No t Available nystatin 100,000 unit/gram topical powder APPLY TO AFFECTED AREA(S) TOPICALLY TWO TIMES A DAY 01/30 completed Not Available Not Available Not Available fluocinonid e 0.05 % topical solution APPLY TO SCALP TWICE A DAY X 2 WEEKS, NEEDED FLARE active Not Available Not Available No t Available estradiol 0.01% (0.1 mg/gram) vaginal cream INSERT ONE GRAM VAGINALLY ONE TIME DAILY FOR 2 WEEKS 11/18 completed Not Available Not Available Not Available methylpredn isolone 4 mg tablets in a dose pack FOLLOW THE DIRECTION S LISTED ON THE LABEL OR PROVIDED BY YOUR PHYSICIAN OR PHARMACIS T 06/19 completed Not Available Not Available Not Available [...] BY TOPICAL ROUTE TWO TIMES A DAY 11/18 completed Not Available Not Available Not Available [...] MOUTH EVERY 12 HOURS FOR 7 DAYS 06/19 completed Not Available Not Available Not Available mometasone 0.1 % topical cream APPLY TO EARS ONE TIME DAILY FOR ITCHING active Not Available Not Available No t Available amoxicillin 875 mg-potassiu m clavulanate 125 mg tablet TAKE ONE TABLET BY MOUTH TWICE A DAY 06/19 completed Not Available Not Available Not Available paroxetine ER 37.5 mg tablet,exte nded release 24 hr Take 1 tablet every day by oral route. active Not Available Not Available No t Available Restasis 0.05 % eye drops in a dropperette 11/18 completed Not Available Not Available Not Available ciprofloxac in 0.3 %-dexametha sone 0.1 % ear drops,suspe nsion INSTILL 4 DROPS INTO AFFECTED EAR(S) BY OTIC ROUTE 2 TIMES PER DAY FOR 7 DAYS 01/30 completed Not Available Not Available Not Available rosuvastati n 20 mg tablet TAKE ONE TABLET BY MOUTH ONE TIME DAILY 07/19 completed Not Available Not Available Not Available rosuvastati n 40 mg tablet Take 1 tablet every day by oral route. 2023 active Not Available Not Available Not Avai lable nitrofurant oin monohydrate /macrocryst als 100 mg capsule TAKE ONE CAPSULE BY MOUTH TWICE A DAY FOR 3 DAYS 09/21 completed Not Available Not Available Not Available selenium sulfide 2.25 % shampoo APPLY TOPICALLY TO WET SCALP ONCE WEEKLY, WORK INTO A FULL LATHER, LEAVE ON FOR 2-3 MINUTES, RINSE THOROUGHL Y, AND THEN PAT DRY active Not Available Not Available No t Available vitamin B complex 1 tab daily 01/30 completed Not Available Not Available Not Available cholecalcif caio (vitamin D3) 50 mcg (2,000 unit) capsule TAKE 1 CAPSULE BY MOUTH EVERY DAY active Not Available Not Available No t Available Intrinsi U60-Hpddyw 500 mcg-20 mg-800 mcg tablet Take 1 tablet by oral route. 2021 active Not Available Not Available Not Avai lable Mounjaro 2.5 mg/0.5 mL subcutaneou s pen injector 2.5 mg sc q week 11/18 completed Not Available Not Available Not Available tirzepatide (weight loss) 10 mg/0.5 mL subcutaneou s pen injector 5mg sc q week 2023 active Not Available Not Available Not Avai labjanee Vitals Date Recorded Body height Body mass index (BMI) Body weight Body temperature Oxygen saturation Oxygen saturation in Arterial blood by Pulse oximetry Heart rate Systolic blood pressure Diastolic blood pressure Provider Name and Address Organization Details Last Updated DateTime 4 162.56 cm 42.1 kg/m2 301312. 13 g 98.2 [degF] 95 % 95 % 73 /min 122 mm[Hg] 78 mm[Hg] Joaquin Hassan MD [facility] 4 15:53:36 Date Recorded Body height Oxygen saturation Oxygen saturation in Arterial blood by Pulse oximetry Body temperature Heart rate Systolic blood pressure Diastolic blood pressure Provider Name and Address Organization Details Last Updated DateTime 4 162.56 cm 90 % 90 % 98.6 [degF] 66 /min 118 mm[Hg] 70 mm[Hg] Nayeli Hassan MD [facility] 4 15:15:52 Date Recorded Body height Body mass index (BMI) Body weight Body temperature Oxygen saturation Oxygen saturation in Arterial blood by Pulse oximetry Systolic blood pressure Diastolic blood pressure Provider Name and Address Organization Details Last Updated DateTime 4 162.56 cm 41.5 kg/m2 224440. 35 g 97.4 [degF] 91 % 91 % 110 mm[Hg] 60 mm[Hg] Alonzo Hassan MD [facility] 4 14:11:19 Date Recorded Body height Body mass index (BMI) Body weight Oxygen saturation Oxygen saturation in Arterial blood by Pulse oximetry Body temperature Heart rate Systolic blood pressure Diastolic blood pressure Provider Name and Address Organization Details Last Updated DateTime 4 162.56 cm 41.2 kg/m2 834949. 17 g 92 % 92 % 98.1 [degF] 73 /min 110 mm[Hg] 58 mm[Hg] Renetta Hassan MD [facility] 4 13:01:35 Date Recorded Body height Body mass index (BMI) Body weight Body temperature Heart rate Oxygen saturation Oxygen saturation in Arterial blood by Pulse oximetry Systolic blood pressure Diastolic blood pressure Provider Name and Address Organization Details Last Updated DateTime 4 162.56 cm 42.1 kg/m2 647579. 13 g 98.3 [degF] 79 /min 94 % 94 % 102 mm[Hg] 60 mm[Hg] Alonzo Hassan MD [facility] 4 13:05:58 Social History Question Answer Notes LastModified by Organizat ion Details LastModified Time Tobacco Smoking Status Never Smoker ISA Welch MD [facility] 10/03/2020 15:17:48 Do You Have An Advance Directive? Yes Information not available 04/03/2021 What Is Your Level Of Alcohol Consumption? Occasional Information not available 10/03/2020 Are You Blind Or Do You Have Difficulty Seeing? No Information not available 06/03/2023 What Is Your Level Of Caffeine Consumption? Moderate Information not available 10/03/2020 How Much Tobacco Do You Chew? None Information not available 10/03/2020 Are You Deaf Or Do You Have Serious Difficulty Hearing? Yes Information not available 01/23/2021 Which Illicit Or Recreational Drugs Have You Used? None Information not available 10/03/2020 Are There Any Guns Present In Your Home? No Information not available 04/03/2021 Do You Have Any Pets? Yes Information not available 04/03/2021 Do You Have Smoke And Carbon Monoxide Detectors In Your Home? Yes Information not available 04/03/2021 Do You Feel Stressed (tense, Restless, Nervous, Or Anxious, Or Unable To Sleep At Night)? [id number] Information not available 04/03/2021 Sex: Unknown Functional Status Question Answer Note LastModified by Organizat ion Details LastModified Time Do you have difficulty walking or climbing stairs? Yes cane Information not available 06/03/2023 Do you have transportation difficulties? No Information not available 01/23/2021 Are you able to walk? YESASSIST Information not available 01/23/2021 Do you have difficulty doing errands alone? Yes Information not available 06/03/2023 Are you able to care for yourself? Yes Information not available 01/23/2021 Do you have difficulty dressing or bathing? No Information not available 01/23/2021 What is your exercise level? None Information not available 06/03/2023 Mental Status Question Answer Note LastModified by Organization D etails LastModified Time Do you have difficulty concentrating, remembering or making decisions? No Information no t available 06/03/2023 Family History Nothing Reported. Medical History No medical history recorded. Gynecological HistoryNo gynecological history recorded. Obstetrics History GPAL:G 0 P 0 0 0 0 Immunizations Vaccine Type Date Status Note Provider Nam e and Address Organization Details Recorded Time COVID-19, mRNA, LNP-S, PF, 100 mcg/0.5mL dose or 50 mcg/0.25mL dose 10/06/19 22 completed Joaquin delaney [place] - [facility] 10/05/2021 15:10:39 Influenza, split virus, trivalent, preservative 01/14/20 08 completed Not Available [facility] 04/29/2023 14:45:32 Influenza, high-dose, trivalent, PF 01/18/20 17 completed Not Available [facility] 04/29/2023 14:45:32 Influenza, high-dose, quadrivalent, PF 01/05/20 21 completed Not Available [facility] 04/29/2023 14:45:32 Influenza, split virus, quadrivalent, preservative 12/24/19 19 completed Not Available [facility] 04/29/2023 14:45:32 COVID-19, mRNA, LNP-S, PF, 100 mcg/0.5mL dose or 50 mcg/0.25mL dose 04/21/19 21 completed Not Available [facility] 04/29/2023 14:45:32 Influenza, split virus, trivalent, preservative 01/09/20 14 completed Not Available [facility] 04/29/2023 14:45:32 Influenza, split virus, quadrivalent, preservative 02/06/20 16 completed Not Available [facility] 04/29/2023 14:45:32 zoster live 03/24/19 03 completed Not Available [facility] 04/29/2023 14:45:32 Influenza, split virus, quadrivalent, preservative 01/23/20 17 completed Not Available [facility] 04/29/2023 14:45:32 Influenza, high-dose, trivalent, PF 01/19/20 19 completed Not Available [facility] 04/29/2023 14:45:32 Influenza, split virus, trivalent, preservative 01/13/20 12 completed Not Available [facility] 04/29/2023 14:45:32 Influenza, high-dose, quadrivalent, PF 12/08/19 20 completed Not Available [facility] 04/29/2023 14:45:32 Influenza, high-dose, trivalent, PF 12/23/19 14 completed Not Available [facility] 04/29/2023 14:45:32 Pneumococcal conjugate PCV 13 02/27/20 17 completed Not Available [facility] 04/29/2023 14:45:32 Influenza, high-dose, trivalent, PF 01/09/20 18 completed Not Available [facility] 04/29/2023 14:45:32 Influenza, high-dose, trivalent, PF 01/03/20 16 completed Not Available [facility] 04/29/2023 14:45:32 Influenza, split virus, trivalent, preservative 01/03/20 10 completed Not Available [facility] 04/29/2023 14:45:32 Influenza, high-dose, trivalent, PF 12/23/19 18 completed Not Available [facility] 04/29/2023 14:45:32 Influenza, split virus, trivalent, preservative 01/15/20 11 completed Not Available [facility] 04/29/2023 14:45:32 pneumococcal polysaccharide PPV23 01/23/20 10 completed Not Available [facility] 04/29/2023 14:45:32 pneumococcal polysaccharide PPV23 03/24/19 11 completed Not Available [facility] 04/29/2023 14:45:32 Influenza, high-dose, trivalent, PF 12/22/19 15 completed Not Available [facility] 04/29/2023 14:45:32 Influenza, split virus, trivalent, preservative 12/21/19 09 completed Not Available [facility] 04/29/2023 14:45:32 COVID-19, mRNA, LNP-S, PF, 100 mcg/0.5mL dose or 50 mcg/0.25mL dose 05/19/19 21 completed Not Available [facility] 04/29/2023 14:45:32 Influenza, high-dose, quadrivalent, PF 12/27/19 [address], [place], [address], [place] [facility] 12/27/2021 08:42:07 zoster recombinant 07/16/19 [address] MD [address], [place], [address], [place] [facility] 07/15/2022 21:37:09 Influenza, high-dose, quadrivalent, PF 12/28/19 23 completed Isauro Rao MD [address], [place], [address], [place] Brendan Hassan MD [facility] 12/29/2022 12:01:44 RSV, recombinant, protein subunit RSVpreF, adjuvant reconstituted, 0.5 mL, PF 12/28/19 23 completed Isauro Rao MD [address] [place] [address] [address], [place], [address], [place] Brendan Hassan MD [facility] 12/29/2022 12:01:44 COVID-19, mRNA, LNP-S, PF, 100 mcg/0.5mL dose or 50 mcg/0.25mL dose 01/24/20 21 completed ISA Welch MD [facility] 01/23/2021 14:19:53 Past Encounters Encounter ID Performer Location Encounter Start Date Encounter Closed Date Diagnosis/Indication Diagnosis SNOMED-CT Code Diagnosis ICD10 Code Diagnosis Note [id number] MD PRIME LACI Winslow [facility] [address] [place] [address] [place] [address] 10/03/2020 15:04:40 10/03/2020 16:00:19 Benign meningioma 064010153 D32.9 Continue with her antiseizur e medicine. Depressive disorder 6318 9007 F32.9 She fell onto depression after her daughter from opiate overdose. She is going to continue with paroxetine which she needs a refill for today. Essential tremor 5761002 09 G25.0 Currently on pramipexol e with change controls her essential tremor quite well. Gastroesop hageal reflux disease 619344220 K21.9 Well-contr olled on PPI currently Hyperlipidemia 59443029 E78.5 She does need a lipid panel lab obtained. Hypertensive disorder 38 394265 I10 We will check CBC CMP and TSH. Hypothyroidism 59269261 E03.9 Check a TSH. Osteoarthritis 645475881 M19.90 Tylenol as needed she is using her own home physical therapy regimen. Seizure disorder 2809037 02 G40.909 Currently on Lamictal from previous brain surgery Type 2 olivia betes mellitus 28523108 E11.9 Excellent control based on her last hemoglobin A1c. [id number] MD PRIME LACI Winslow [facility] Office [address] [place], [place] [address] 8 10/05/2020 10:18:00 10/05/2020 10:36:44 [id number] MD PRIME LACI Winslow [facility] Office [address] [place], [place] [address] [place] [id number] 8 10/20/2020 13:13:00 10/20/2020 15:35:18 Acute sinusitis 95294831 J01.90 start augmentin 875mg po bid for 5 days and dexamethas one 4 mg for 5 days Hyperlipidemia 48079699 E78.5 Start crestor Hypothyroidism 30114662 E03.9 TSH at target Type 2 olivia betes mellitus 18865590 E11.9 Excellent control based on her last hemoglobin A1c. Loose stool 945138077 R1 9.5 Check stool studies. [id number] MD PRIME LACI Winslow [facility] Office [address] [place], [place] [address] [place] [id number] 8 11/28/2020 16:37:31 11/28/2020 20:42:54 Hypertensive disorder 36307293 I10 At target Skin lesion 01936661 L98 .9 Will have this removed. [id number] MD PRIME LACI Winslow [facility] Office [address] [place], [place] [address] 8 01/12/2021 13:57:46 01/12/2021 15:04:15 Essential tremor 070533759 G25.0 Currently on pramipexol e. She went to neurologis t yesterday and was invreased to 3 times a day and 250 Gastroesop hageal reflux disease 932356323 K21.9 Well-contr olled on PPI currently Hyperlipidemia 81170591 E78.5 Start crestor Hypertensive disorder 38 763266 I10 At target Seizure disorder 2022473 02 G40.909 Currently on Lamictal from previous brain surgery Benign meningioma 613980 006 D32.9 Continue with her antiseizur e medicine. Pain of ear 868102115 H9 2.09 Concern of a recurrent meningioma . Will check a CT to r/o that as a source of the pain. Obstructiv e sleep apnea syndrome 62161293 G47.33 Has ANUSHA. She has not been using her CPAP because it bugs her. [id number] MD PRIME LACI Winslow [facility] [address] [place], [place] [address] [place] [address] 01/23/2021 13:33:20 01/23/2021 14:20:59 Gastroesophageal reflux disease 671603876 K21.9 Well-contr olled on PPI currently Hyperlipidemia 36082316 E78.5 Start crestor Hypertensive disorder 38 857544 I10 At target Hypothyroidism 65073033 E03.9 TSH at target Seizure disorder 8413368 02 G40.909 Currently on Lamictal from previous brain surgery Active or passive immunization 119307409 Z23 update COVID vax Obstructiv e sleep apnea syndrome 83485629 G47.33 Has ANUSHA. She has not been using her CPAP because it bugs her. [id number] MD PRIME LACI Winslow [facility] [address] [place] [address] [address] [place] [address] 02/06/2021 14:31:32 02/06/2021 15:27:11 Benign meningioma 707878981 D32.9 Continue with her antiseizur e medicine. Depressive disorder 7335 9007 F32.9 She fell onto depression after her daughter from opiate overdose. She is going to continue with paroxetine which she needs a refill for today. Gastroesop hageal reflux disease 943043310 K21.9 Well-contr olled on PPI currently Hyperlipidemia 07247605 E78.5 Start crestor Hypertensive disorder 38 430132 I10 At target Hypothyroidism 73364934 E03.9 TSH at target Seizure disorder 3286050 02 G40.909 Currently on Lamictal from previous brain surgery Screening mammography 24 488477 Z12.31 declined Colorectal cancer screening not done 2057802464 100 Z53.9 UTD last lower endo 2 years ago. Active or passive immunization 127432464 Z23 update COVID vax and flu [id number] MD PRIME LACI Miles [facility] [address] [place], [place] [address] [place] [id number] 04/03/2021 13:59:39 04/03/2021 15:33:18 Adult health examination 467169713 Z00.00 Patient here for Medicare Annual Wellness visit. See above discussion Advance care planning 71 0465757 Z71.89 I have discussed with patient/PO A and explained about completing a 5 wishes form, a living will and delegating a family member or a health care proxy to make decisions when they are not able to. Also, deciding if they desire to receive full treatment in case of medical emergency vs DNR. Face to face discussion lasted for a duration of 15 minutes. Patient code status updated, patient is Full Code. Depression screening 171 471506 Z13.31 Negative PHQ9, re-assess annually Screening for cardiovascular system disease 002856806 Z13.6 Reviewed with patient BP trend in the office, discussed about aspirin use, healthy lifestyle modificati ons, mediterran an or DASH diet, low salt <2g daily. Time spent counseling 10 min. Screening for alcohol abuse 124525942 Z13.39 Alcohol screening performed and is negative for substance abuse. I did ask her to cut down [id number] MD PRIME LACI Winslow OF [facility] Office [address] [facility] [address] [place] [address] 05/15/2021 14:21:23 05/15/2021 15:19:01 Fatigue 57072370 R53.83 C/O fatigue stop am primidone temporaril y Obstructiv e sleep apnea syndrome 33410647 G47.33 She is using the Bipap and sleeps but it is uncomforta ble. Refer to sleep med here. 46902 MD PRIME LACI Winslow OF [facility] Office [address] [facility] [address] [place] [address] 06/07/2021 16:27:01 06/19/2021 17:11:34 Depressive disorder 81058500 F32.9 Currently on paroxetine . She is doing well on this, sleep is good. Essential tremor 2471093 09 G25.0 Currently on pramipexol e. Gastroesop hageal reflux disease 607513689 K21.9 Well-contr olled on PPI currently Hyperlipidemia 55471400 E78.5 On crestor. Diet discussed at length with patient. She is not able to exercise because her knee pain and balance problem. Hypertensive disorder 38 676119 I10 Patient is normotensi ve at home. Will not make any changes to her medication today. Hypothyroidism 73903897 E03.9 Last TSH was normal. On synthroid. Seizure disorder 3034402 02 G40.909 Currently on Lamictal from previous brain surgery History of total knee arthroplasty 6867566317 105 Z96.659 Patient is complainin g of having balance issues since her surgery. We will send her to physical therapy. Obstructiv e sleep apnea syndrome 92362688 G47.33 She is using the Bipap about 5 hours at night. Benign meningioma 708291 006 D32.9 Continue with her antiseizur e medicine. Her meningioma was removed without any difficulty and she has not had a seizure. Type 2 olivia betes mellitus 28731861 E11.9 Excellent control based on her last hemoglobin A1c. Her hemoglobin A1c was 5.6. [id number] MD PRIME LACI Winslow OF [facility]-Main Office [address] [place], [place] [address] [place] [address] 09/20/2021 15:15:16 09/20/2021 16:43:57 Essential tremor 142470597 G25.0 Currently on pramipexol e. Benign meningioma 820002 006 D32.9 Having an MRI needs lab Hyperlipidemia 06159897 E78.5 On crestor. Diet discussed at length with patient. She is not able to exercise because her knee pain and balance problem. Hypertensive disorder 38 876458 I10 Patient is normotensi ve at home. Will not make any changes to her medication today. Hypothyroidism 19843227 E03.9 Last TSH was normal. On synthroid. Seizure disorder 3641476 02 G40.909 Currently on Lamictal from previous brain surgery Candidiasis of vagina 72 786831 B37.3 35760 MD PRIME LACI Winslow OF [facility] Office [address] [place], [place] [address] [place] [address] 10/05/2021 13:19:20 10/05/2021 14:02:29 Administration of SARS-CoV-2 antigen vaccine 187294586 Z23 1st booster administer ed to patient. She can take tylenol as needed for discomfort . Candidiasis of vagina 72 008795 B37.3 Patient has been using Dial soap in her vagina. Skin is very dry and red. There is a thin odorless discharge. I recommende d that she stops using soap or use some kind of vaginal soap like summer's sandeep. Also start boric acid suppositor ies to help restore the pH. Intertrigo 10085232 L30. 4 Start power. Patient is very clean but she has a pendulous abdomen. Start nystatin powder. [id number] MD PRIME LACI Winslow OF [facility]Main Office [address] [place], [place] [address] [place] [address] 10/22/2021 16:17:52 10/22/2021 17:02:37 Dyspnea 902888852 R06.00 Patient has been experienci ng SOB with ambulation . [facility] and was told her heart was ok, neverthele ss she seems winded after walking short distance. Candidiasis of vagina 72 750470 B37.3 Start using Boric Acid, no soap, and start fluconazol e for 6 months once per week. Hypertensive disorder 38 770954 I10 BP slightly above goal of < 130/90. Patient is normotensi ve at home. No changes to medication . [id number] MD PRIME LACI Miles OF [facility] Office [address] [place], [place] [address] [place] [address] 12/26/2021 12:57:22 12/26/2021 13:15:03 Administration of influenza vaccine 50531387 Z23 MD PRIME LACI Winslow OF [facility] Office [address] [place], [place] [address] [place] [address] 01/30/2022 14:10:45 01/30/2022 15:24:44 Fatigue 84154142 R53.83 Patient was advised to use a CPAP pillow to improve sleep quality. Paresthesia 81769153 R20 .2 Patient will start vitamin B12 and folate supplement . Probable hypoventil ation but will start B12 and folate. Gastroesop hageal reflux disease 606365148 K21.9 Well-contr olled on PPI currently. Depressive disorder 3548 9007 F32.9 Currently on paroxetine . She is doing well on this. Hypertensive disorder 38 069878 I10 Blood pressure at target. Active or passive immunization 345749648 Z23 Flu vaccine is up-to-date Screening for malignant neoplasm of breast 441944441 Z12.39 Order mammogram [id number] MD PRIME LACI Winslow [facility]-Main Office [address] [facility] [address] [place] [address] 02/20/2022 14:26:28 02/20/2022 14:55:46 Acute left otitis media 841797797 H66.92 Start abx Hypertensive disorder 38 588917 I10 Increase coreg to 6.25 mg po bid Hyperlipidemia 55306945 E78.5 On crestor. Diet discussed at length with patient. She is not able to exercise because her knee pain and balance problem. 30271 TEJINDER Reed MD [facility]-Main Office [facility] [facility] [address] [place] [address] 04/23/2022 12:59:55 04/23/2022 13:26:13 Adult health examination 037142108 Z00.00 *Patient was screened for depression using PHQ9, score as outlined above. *Advance care planning was addressed during this visit. I have discussed with patient/PO A and explained about completing a five wishes form, a Living will and delegating a family member or a healthcare proxy to make decisions when they're not able to. Also, decided if they desire to receive full treatment in case of medical emergency versus DNR. Face-to-fa ce discussion lasted for a duration of 15 minutes. Patient code status updated. *Tobacco screening performed * Alcohol screening performed *Fall risk screening performed using ALLRED fall scale *Functiona l status assessed * Patient was screened for cardiovasc ular disorder, recommende d healthy lifestyle modificati on including 30 minutes of exercise at least five days a week, use of baby aspirin. * A preventati ve care plan was created and discussed with the patient: including preventati ve screening as well an immunizati on schedule. Memory impairment 614650 006 R41.3 Patient has concerns about her memory. I offered her a MOCA test but she is declining this today. She will check with her neurologis t. Depressive disorder 3548 9007 F32.9 On paxil, she is ok with this dose and does not wish to make change sto her regimen. She is more depress since her daughter . PHQ-9 score is 6 Morbid obesity 241119056 E66.01 Patient to come back to discuss weight loss. 09466 MD PRIME LACI Miles [facility]-Main Office [address] [place] [address] [address] [place] [address] 07/01/2022 13:44:03 07/01/2022 14:20:54 Acute bronchitis 86457549 J20.9 Acute, stable. Start treatment as below and continue supportive care at home. Patient was advised to RTC if symptoms worsen or do not improve in the next 3 days. Benign meningioma 320588 006 D32.9 Chronic, stable. She will continue with her antiseizur e medicine. Her meningioma was removed without any difficulty and she has not had a seizure. Type 2 olivia betes mellitus 52650870 E11.9 Chronic, stable. Reviewed labs, last Hgb A1c was 5.6. Well-contr olled on current regimen. Seizure disorder 2387838 02 G40.909 Chronic, stable. She will continue with her antiseizur e medicine. Her meningioma was removed without any difficulty and she has not had a seizure. 44986 MD PRIME LACI Miles [facility]-Main Office [address] [place], [place] [address] [place] [address] 07/15/2022 13:59:28 07/15/2022 14:30:58 Immunization due 664492665 Z28.39 Administer ed shingles vaccine. Polyuria 61848520 R35.89 New problem to us. She c/o of increased urination without drinking more fluids. She denies any dysuria, back pain, fever, chills, or any other associated symptoms at this time. Reviewed labs, last Hgb A1c was 5.6 and she does not take any diabetes medication . Ordered lab work. Hyperlipidemia 02056367 E78.5 Chronic, stable. She is currently on Rosuvastat in. Ordered lab work. Hypothyroidism 07303152 E03.9 Chronic, stable. She is currently on Levothyrox ine 25 mcg. Ordered lab work. Essential tremor 2442717 09 G25.0 Chronic, stable. She reports she will be taking part in a clinical research study w/ [employer] soon for her essential tremors. Follows w/ neurologis t. 08461 FRANDY WILLIAMSON MD [facility] [address] [place] [address] [address] [place] [address] 09/25/2022 13:54:12 09/25/2022 14:30:37 Mass of left breast 6712373892 6708405 N63.20 Patient c/o a lump under her left axilla which she felt 4 weeks ago but can no longer feel herself. She denies any pain, redness, drainage, or other symptoms with this. I am unable to palpate the lesion she is referring to on exam today.Refe rred to [facility] for breast cancer screening. 55649 FRANDY WILLIAMSON MD [facility] [address] [place], [place] [address]ROMAN [address] [place] [address] 10/11/2022 13:01:33 10/11/2022 13:29:47 Viral screening 662849877 Z11.52 Rapid COVID test negative, discussed results with patient. Acute bronchitis 9664679 2 J20.9 New problem. Start oral antibiotic s and albuterol inhaler and continue Benzonatat e/supporti ve care.Patie nt was advised to RTC if symptoms worsen or do not improve with treatment. 30710 TEJINDER Reed MD [facility] [address] [place] [address] [address] [place] [address] 12/18/2022 13:34:59 12/18/2022 14:36:00 Essential tremor 781246198 G25.[address] Steel in town. She should also follow with her neurologis t. Obesity 849398965 E66.9 We discussed about a weight loss program. She wanted to know more about semaglutid e and will think about joining weight loss program.We emphasize the need to use more protein with his/her meals, approximat jerson 30 g of protein per meal. Use complex carbs instead of simple carbs. Cut back on wheat, pasta, rice, potatoes, pastry, sugary drinks. Increase activity/e xercise to 30 minutes a day five days a week.Will come back for blood work. 10312 MD PRIME LACI Miles [facility] [address] [place] [address] [address] [place] [address] 12/27/2022 14:40:52 12/27/2022 15:00:50 Active or passive immunization 434682742 Z23 Flu vaccine is up-to-date 46974 MD PRIME LACI Winslow OF [facility] Office [address] [place] [address] [address] [place] [address] 05/01/2023 13:17:37 05/01/2023 13:52:55 Hospital inpatient stay within past 30 days 3666911817 106 Z76.89 Admitted for dizziness and doing well now this has resolved. Essential tremor 6696714 09 G25.0 Currently on pramipexol e. This is working Benign meningioma 632142 006 D32.9 On lamictal for sz prophylaxi s Hyperlipidemia 88153224 E78.5 On crestor. Diet discussed at length with patient. She is not able to exercise because her knee pain and balance problem. Hypertensive disorder 38 590967 I10 At target Hypothyroidism 21373531 E03.9 Last TSH was normal. Seizure disorder 6071237 02 G40.909 Currently on Lamictal from previous brain surgery 54840 MD PRIME LACI Winslow OF [facility] Office [address] [place] [address] [facility] [address] [address] [place] [address] 06/03/2023 12:58:20 06/03/2023 13:46:56 Adult health examination 682051370 Z00.00 Z13.31 Z71.89 Z13.39 Z13.6 A preventati ve care plan was created and discussed with the patient: including preventati ve screening as well an immunizati on schedule. *Patient was screened for depression using PHQ9, score as outlined above. *Tobacco screening performed * Alcohol screening performed *Fall risk screening performed using ALLRED fall scale *Functiona l status assessed * Patient was screened for cardiovasc ular disorder, recommende d healthy lifestyle modificati on including 30 minutes of exercise at least five days a week, use of baby aspirin. Advance care planning 71 3070601 Z71.89 Advance care planning was addressed during this visit. I have discussed with patient/PO A and explained about completing a five wishes form, a Living will and delegating a family member or a healthcare proxy to make decisions when they're not able to. Also, decided if they desire to receive full treatment in case of medical emergency versus DNR. Face-to-fa ce discussion lasted for a duration of 15 minutes. Patient code status updated. Benign meningioma 476657 006 D32.9 On lamictal for sz prophylaxi s Depressive disorder 3548 9007 F32.9 Currently on paroxetine . She is doing well on this. Hyperlipidemia 27524911 E78.5 On crestor. Diet discussed at length with patient. She is not able to exercise because her knee pain and balance problem. Hypertensive disorder 38 918268 I10 At target Hypothyroidism 04902001 E03.9 Last TSH was normal. Seizure disorder 6284921 02 G40.909 Currently on Lamictal from previous brain surgery Prediabetes 612821421 R7 3.03 Check hgba1c Screening for malignant neoplasm of breast 674259556 Z12.39 Order mammogram for September Screening for malignant neoplasm of colon 303462026 Z12.11 order cologuard Screening for osteoporosis 934292068 Z13.820 Order Dexa Active or passive immunization 436107922 Z23 Flu vaccine is up-to-date 24619 MD PRIME LACI Winslow OF [facility] Office [address] [place] [address] [address] [place] [address] 07/24/2023 12:48:18 07/24/2023 13:47:36 Congestive heart failure 57637653 I50.9 ImprovedPl anning to see Dr. Wallace in the next week. Hyperlipidemia 00151375 E78.5 On crestor. Diet discussed at length with patient. She is not able to exercise because her knee pain and balance problem. Hypertensive disorder 38 272184 I10 At target Hypothyroidism 86238733 E03.9 Last TSH was normal. History of sepsis 709103 6681 72343 Z86.19 Likely originated for an invasive procedure she had cystoscopy .She is doing well now no SOB. Morbid obesity 653332522 E66.01 diet and exercise d/w pt. Obstructiv e sleep apnea syndrome 47928215 G47.33 She is using the Bipap about 5 hours at night. Vaginitis 91523462 N76.0 76738 MD PRIME CRISTY Winslow [facility]-Main Office [address] [place], [place] [address] [place] [address] 09/22/2023 15:44:50 09/22/2023 16:50:00 Hypertensive disorder 21615736 I10 At target Hyperlipidemia 54440782 E78.5 On crestor. Diet discussed at length with patient. She is not able to exercise because her knee pain and balance problem. Seizure disorder 1665411 02 G40.909 Currently on Lamictal from previous brain surgery Morbid obesity 057631350 E66.01 Diet and exercise d/w pt. Hypothyroidism 67200276 E03.9 Last TSH was normal. Depressive disorder 3548 9007 F32.9 Currently on paroxetine . She is doing well on this. Prediabetes 813318105 R7 3.03 A1c 5.9 Diet and exercise d/[place]. [address] MD PRIME LACI Miles [facility] Office [address] [place] [address] [address] [place] [address] 10/14/2023 14:51:08 10/14/2023 15:46:24 Pruritic rash 54512832 L28.2 NEW problem Back of neck.- Plan: Prescribe topical steroid cream for the neck rash, to be applied twice daily. Advise the patient to follow up if the rash does not improve within a few days. Seborrheic keratosis 394 412723 L82.1 NEW problem Plan: Order steroid solution for symptom relief. Instruct the patient to apply the solution BID and to follow up if symptoms do not improve. 68285 MD PRIME LACI Winslow [facility] Office [address] [place] [address] [address] [place] [address] 10/23/2023 13:50:30 10/23/2023 15:26:02 Essential tremor 069696302 G25.0 Currently on pramipexol e. This is working Hyperlipidemia 82616550 E78.5 On crestor. Diet discussed at length with patient. She is not able to exercise because her knee pain and balance problem. Hypertensive disorder 38 896255 I10 At target Hypothyroidism 73884737 E03.9 Last TSH was normal. Morbid obesity 145528670 E66.01 Diet and exercise d/w pt. Seizure disorder 2341265 02 G40.909 Currently on Lamictal from previous brain surgery Congestive heart failure 62025943 I50.9 ImprovedPl anning to see Dr. Wallace in the next week. Screening for malignant neoplasm of breast 030553125 Z12.39 Order mammogram for September Screening for malignant neoplasm of colon 065470485 Z12.11 Cologuard neg Screening for osteoporosis 890971790 Z13.820 Osteopenia cont with supplement al calcium Seborrheic dermatitis of scalp 718200995 L21.0 Improved Acute cystitis 93644224 N30.01 Culture urine Atrophic vaginitis 88436 000 N95.2 estrace Bacterial vaginosis 4197 91618 N76.0 flagyl Candidiasis of vagina 72 131526 B37.31 nystatin 21873 Noe Camp MD PRIME MD [facility]-Main Office [address] [place] [address] [address] 11/19/2023 12:51:09 11/19/2023 13:22:09 Depressive disorder 11636131 F32.9 Currently on paroxetine . She is doing well on this. Essential tremor 7845497 09 G25.0 Currently on pramipexol e. This is working Hyperlipidemia 33671341 E78.5 On crestor. Diet discussed at length with patient. She is not able to exercise because her knee pain and balance problem. Hypertensive disorder 38 716803 I10 At target Hypothyroidism 81115081 E03.9 Last TSH was normal. Morbid obesity 845621725 E66.01 Diet and exercise d/w pt.Cont with tirzepetid e 2.5 sc q weekm Type 2 olivia betes mellitus 93979735 E11.9 Excellent control based on her last hemoglobin A1c. Her hemoglobin A1c was 5.6. Atrophic vaginitis 20451 000 N95.2 Stopped the estradiol and the bleeding has resolved. Overactive urinary bladder 845554550 N32.81 Start oxybutinin 43762 MD PRIME GUSTAVO Winslow [facility]-Main Office [facility] [facility] [address] [place] [address] 12/22/2023 12:59:14 12/22/2023 13:24:21 Assisted living facility patient 1507221138 3081809 Z76.89 [facility] Hypertensive disorder 38 267642 I10 At target Seizure disorder 5341602 02 G40.909 Currently on Lamictal from previous brain surgery Obstructiv e sleep apnea syndrome 72918864 G47.33 She is using the Bipap about 5 hours at night. Type 2 olivia betes mellitus 47585838 E11.9 Excellent control based on her last hemoglobin A1c. Her hemoglobin A1c was 5.6. Intentiona l weight loss 588837243 R63.8 increase to 5 mg Morbid obesity 420192460 E66.01 Diet and exercise d/w pt.Cont with tirzepetid e 2.5 sc q weekm Health Concerns Section Related Observation LastModified by Organization Detai ls LastModified Time None Recorded Concern Status LastModified by Organization Details LastModified Time None Recorded Advance Directives Directive Y: Payers Encounter Date Sequence Insurance Name Policy Number Policy Schilling Covered Member ID Schilling Member ID Guarantor Name 09/22/2023 1 [place] Silvana Shahid Payam [id number] Silvana Shahid Payam 09/22/2023 2 [employer] OPTIONS (MEDICARE SUPPLEMENT) Silvana Pringlezier Payam [id number] Silvana Shahid Payam 10/14/2023 1 [place] Silvana Shahid Payam [id number] Silvana Zehra Payam 10/14/2023 2 [employer] OPTIONS (MEDICARE SUPPLEMENT) Silvana Pringlezier Payam [id number] Silvana Zehra Payam 10/23/2023 1 [place] Silvana Shahid Payam [id number] Silvana Zehra Payam 10/23/2023 2 [employer] OPTIONS (MEDICARE SUPPLEMENT) Silvana Shahid Villanueva Payam [id number] Silvana Zehra Payam 11/19/2023 1 [place] Silvana Shahid Payam [id number] Silvana Zehra Payam 11/19/2023 2 [employer] OPTIONS (MEDICARE SUPPLEMENT) Silvana Hare [id number] Silvana Hare 12/22/2023 1 [place] Silvana Hare [id number] Silvana Hare 12/22/2023 2 [facility] HEALTHC[facility] OPTIONS (MEDICARE SUPPLEMENT) Silvana Hare [id number] Silvana Hare Notes Date Note Type Note Provider Name and Address Organization Details Recorded Time 09/22/2023 text/html The patient repo rts significant improvement since their last visit, having recently undergone laser treatment. They were hospitalized for sepsis, believed to be secondary to a cystoscopy, and experienced shaking chills, low blood pressure, and difficulty breathing during the episode. The patient denies recent issues with blood pressure, cholesterol, or seizures and notes improved mood and pain relief with Salonpas patches. They have a history of diabetes with a recent HbA1c of 5.7-5.9 and have gained 10 pounds in the past year. The patient is considering a weight loss program and medication but is uncertain about their motivation. 1. Chief Complaint:- The patient reports feeling much better since their last visit.- The patient mentions having undergone a laser treatment recently. 2. Medical History:- The patient had a recent hospitalization due to sepsis, which they believe was caused by a cystoscopy performed by Rosaura Song.- The patient has a history of diabetes. 3. Symptoms:- The patient experienced shaking chills, low blood pressure, and difficulty breathing during the sepsis episode.- The patient has gained 10 pounds in the past year.- The patient previously tried Jardiance for weight loss but discontinued it due to minimal weight loss and high cost. 4. Additional Notes:- The patient discusses the possibility of moving, but states that their house has been on the market for two months with only two showings and a ceja drop of $40,000.- The patient was kept in bed for two days during their hospital stay.- The patient denies any recent problems with blood pressure, cholesterol, or seizures.- The patient reports that their mood has improved, and they have found relief from pain using Salonpas patches.- The patient expresses dissatisfaction with a previous lack of communication regarding their self-treatment.- The patient is considering a weight loss program and medication, but is unsure about their motivation to commit to it. Noe Camp MD [address] [facility] [address], [place], [address], [facility] 09/22/2023 16:46:28 10/14/2023 text/html Chief Complaint: The patient presents with a chief complaint of a rash on the back of her neck and an itchy scalp. She reports that the rash began on Friday and initially appeared on the right side of her neck, extending up to her ear. The rash has since improved on the right side and is now primarily located on the back of her neck. The patient describes the rash as itchy but not painful or burning. She also reports a constant itchiness on her scalp. Past Medical History:The patient has a history of itchy ears and has previously been prescribed Mometasone furoate for this issue. She has been using this medication to alleviate the itchiness of her current rash as well. The patient denies any recent exposure to new products or substances that could have caused the rash. Additional Information:She has received both shingles vaccinations. Isauro Rao MD [address] [facility] [address], [place], [address], [facility] 10/20/2023 07:23:19 10/23/2023 text/html he patient, who has been following a designed eating plan and lost six pounds, is interested in Mounjaro or tirzepatide for diabetes management after discontinuing Ozempic due to cost. She presents with dermatitis on her neck and scalp, showing some improvement with Clovetazone. Her primary concern is a two-year history of urinary discharge and recent hematuria, with a significant bleeding episode post-cystoscopy, which led to hospitalization for sepsis. She also reports a small bump on the external vaginal area and pressure in the bladder. A urine test and culture are planned to investigate further. 1. Chief Complaint:- The patient reports weight loss success with a designed eating plan.- The patient expresses interest in Mounjaro or tirzepatide for diabetes treatment.- The patient presents with dermatitis on her neck and scalp.- The patient's primary concern is a urinary discharge she has been experiencing for two years. 2. Medical History:- The patient was previously on Ozempic but discontinued due to cost.- The patient has a history of hysterectomy.- The patient has had four endometrial biopsies, which were reported as normal. 3. Symptoms:- The patient has been using Clovetazone for six days with some improvement but not complete resolution of the dermatitis.- The patient reports intermittent blood in her urine, with one episode of significant bleeding that filled a pad.- The patient denies any burning sensation during urination.- The patient has noticed a small bump on the outside of her vagina.- The patient feels pressure in the bladder area. 4. Additional Notes:- The patient underwent a cystoscopy, after which she was hospitalized with sepsis.- The patient was told she had an overactive bladder.- Since the cystoscopy, the patient has experienced increased bleeding, possibly external. Noe Camp MD [address] [facility] [address], [place], [address], [facility] 10/23/2023 15:21:25 11/19/2023 text/html The patient repo rts feeling good overall after starting tirzepatide 2.5 mg for weight loss, noting a slight decrease in hunger. They have seen improvement in vaginitis with nystatin cream and Flagyl but experienced bleeding with estradiol, which resolved after discontinuation. The patient has a history of overactive bladder diagnosed via cystoscopy and is considering medication options. They are managing multiple conditions, including hypertension, GERD, lower extremity edema, bipolar disorder, hypothyroidism, tremor, depression, and hypercholesterolemia , with their current medication regimen. Follow-up is scheduled in 4 weeks to assess progress. 1. Chief Complaint:- The patient reports feeling good overall after being on the generic form of their medication for a week.- The patient mentions experiencing a slight decrease in hunger since starting the medication. 2. Medical History:- The patient is currently on a 2.5 mg dose of the medication.- The patient is following an eating plan consisting of chicken and fish.- The patient has a history of urinary discharge and was diagnosed with an overactive bladder following a cystoscopy.- The patient terminated their patient status with the OB who performed the cystoscopy.- The patient has not received any medication for the overactive bladder. 3. Symptoms:- The patient experienced bleeding after using estradiol for two to three days, which resolved after they stopped the medication.- The patient is using clobetasol for a rash, which has calmed down after following their beater engineer helper's advice to limit its use to two weeks. 4. Additional Notes:- The patient has been taking vitamin D3 as instructed after their hospital stay.- The patient inquires about the appropriate dosage for their 125 mg bottle of vitamin D3.- The patient reports improvement in their vaginitis, attributing it to the use of nystatin cream and Flagyl.- The patient is taking various medications for blood pressure, stomach issues, leg swelling, and tremors, among others.- The patient is using tirzepatide for weight loss.- The patient inquires about the cost and potential benefits of continuing the tirzepatide medication. Noe Camp MD [facility]5 [facility] [address], [place], [address], [facility] 11/19/2023 13:20:48 12/22/2023 text/html To thanh Tejeda [facility] eldame Noe Camp MD [facility] [facility] [address], [place], [address], [facility] 12/22/2023 13:23:12 OBGyn Episode No OBEpisode recorded.
--- OUTSIDE RECORDS SUMMARY | 2024-05-30 10:49 | XMS_ITS | Continuity of Care Document ---
Author Organization [facility] Address [address] [place] [address] Phone Care Team Providers Care Marine Oiler Name Role Phone Ildefonso Peralta MD Unavailable Unavailable Allergies, Adverse Reactions, Alerts Substance Reaction Status Criticality No Known Allergies Active No Inform ation Medications Medication Instructions Dosage Effective Dates (start - stop) Status Comments Crestor 40 mg tablet take 1 tablet by or al route every day 40 MG - Active Lamictal 100 mg tablet take 1 tablet by oral route 2 times every day 100 MG - Active losartan 50 mg tablet take 1 tablet by oral route every day 50 MG - Active Synthroid 25 mcg tablet take 1 tablet by oral route every day 25 MCG - Active Coreg 6.25 mg tablet take 1 Tablet by or al route 2 times every day with food 6.25 MG - Active Paxil 30 mg tablet take 1 tablet by ora l route every day 30 MG - Active primidone 125 mg tablet take 1 tablet by oral route every day at bedtime for 3 days , then twice daily for 3 days, then three times daily for 3 days 125 MG - Active aspirin 81 mg tablet,delayed release take 1 tablet by oral route every day 81 MG - Active Procedures Procedure Date OFFICE/OUTPATIENT VISIT, NEW Advance Directives Directive Yes / No Effective Date File Name No Information Encounters Encounter Description Practice Location Reason(s) For Visit Diagnoses Date Provider Providers Copied on Encounter [facility], [address] [facility] [place], [place], [address], [place] tel:[phone] [facility] No Information 5 Fabian Fregoso. [address], [place], [place], [address] , [place]. tel:[phone] [facility], [address] [place], [address], [place] tel:[phone] [facility] No Information 5 Fabian Ildefonso. [address], [place], [place], [address] , [place]. [phone] OFFICE/OUTPA TIENT VISIT, [facility], [address], [place], [place], [address], [place] tel:[phone] [facility] thyroid1 (chief complaint) anxiety1 (chief complaint) HTN (chief complaint) seizure1 (chief complaint) HLP (chief complaint) tremor1 (chief complaint) HypothyroidismTremo rEssential (primary) hypertensionMixed hyperlipidemiaOther epilepsyGeneralized Anxiety DisorderPolyp of colonOsteopenia 5 Fabian Fregoso. [address], [place], [place], [address] , [place]. tel:[phone] Family History Family Member Type Diagnosis Age At Onset Father Problem of 90 old age Sister Problem essential tremor Mother Problem of 80s ?? CVA Payers Payer name Insurance type Covered green party ID Authoriza tion(s) [employer] Of [place] WPS MB [id number] [employer] Secondary CI [id number] Social History Type Description Quantity Date Captured Comments Sex Female Smoking Status No Information Chief Complaint And Reason For Visit No Information Plan Of Treatment Date Type Action Status Referral Ordered: [facility]LAKITO [facility] : Psychiatry & Neurology : Neurology (related to Other epilepsy) ordered Referral Referred To: FLAKITO VAUGHN [address] [place], [place], [id number] [phone] Ordered: Referrals: [facility]opathic [facility] Osteopathic Physicians : [...] ssential tremor. pt was seeing neurology in [place]. She just moved here .Pt needs referral to neurology Pt is on primidone for the past several years but has not helped much. Her neurologist in [place] ruled her out of parkinson disease. Instructions Date Instruction Additional Infor jacob No Information Assessments Type Assessment Date No Information
--- NOTE | 2024-05-30 11:30 | ED.GENADULT ---
[facility] - General Adult General Chief complaint: Unspecified Stated complaint: many complaints Time Seen by Provider: 05/30/24 10:37 History of Present Illness HPI narrative: 83-year-old female with history of essential tremor, presenting to the emergency department for evaluation of flu-like symptoms, cough and congestion for last week in addition to a fall she had yesterday. Patient states she has frequent falls and normally ambulates with the assistance of a wheelchair and walker all times. She endorses head trauma without loss of consciousness. Does not take any anticoagulation medications or blood thinners. She states that she does not have any headache or vision changes. No neuropathy or weakness. Endorses a cough as well as some congestion sensation fullness in her face and ears. No recent antibiotic use. No history of asthma or COPD. Patient's is at bedside providing additional information. Related Data Allergies Allergy/AdvReac Type Severity Reaction Status Date / Time No Known Allergies Allergy Verified 04/26/24 14:10 Review of Systems Review of Systems: As reviewed above in HPI [facility] Past Medical History Medical History Hypertension Hypothyroidism Essential tremor Exam Narrative: GENERAL: Morbidly obese but not in any distress, well appearing, answering all questions appropriately. HEAD: [Normocephalic, atraumatic.] EYES: [PERRLA and EOMI.] ENT: Nares clear, no rhinorrhea or epistaxis. Mucous membranes moist. NECK: Supple. CHEST: Mild asymmetric wheezing but good aeration without any accessory muscle use or tachypnea. No rhonchi HEART: [Regular rate and rhythm]. No murmur heard. [Normal peripheral pulses.] ABDOMEN: [Soft, nondistended], [nontender], [No rigidity or guarding] EXTREMITIES: Normal range of motion. [No edema.] SKIN: Warm, dry, no rash. NEURO: [No focal deficits]. Alert and oriented [x3.] PSYCH: [Normal mood and affect.] Course Vital Signs Vital signs: Vital Signs Respiratory Rate 19 05/30/24 10:47 Pulse Oximetry 94 05/30/24 10:47 Temperature 36.6 C 05/30/24 10:50 Pulse Rate 100 05/30/24 10:50 Respiratory Rate 19 05/30/24 10:50 Blood Pressure 116/77 05/30/24 10:50 Pulse Oximetry 93 05/30/24 10:50 Oxygen Delivery Room Air 05/30/24 10:50 Medical Decision Making [facility] Narrative Medical decision making narrative: 83-year-old female presenting to the ER for evaluation of flu-like symptoms for last week endorsing cough, congestion, fullness in her head and sinus pressure. She states she also fell yesterday with head trauma without loss of consciousness. Patient denies any anticoagulation use. She is otherwise well-appearing, not any acute distress and has normal vital signs without any tachycardia, fever, hypoxia or blood pressure concerns. She has an unremarkable neurovascular assessment, she does have some scattered wheezing with asymmetry on auscultation and denies any history of asthma or COPD. Suspicion presently is for COVID versus influenza, possible pneumonia given the scattered wheezing, low suspicion other intrathoracic process. Given her age and head trauma a CT of the head was also warranted. Chest x-ray two views, CT of the head, basic laboratory studies were obtained. COVID flu and RSV swabs obtained. Workup shows no leukocytosis or anemia. Electrolytes with some mild hypokalemia otherwise unremarkable, normal renal function, normal hepatic function. glucose 150. Patient tested positive for influenza A which likely explains her symptomatology. She is outside the window for Tamiflu. Head CT shows no acute intracranial hemorrhage, mass effect or infarct. Previous craniotomy. Chest x-ray shows clear lungs and cardiomegaly. Patient was re-evaluated and doing well here without any vital abnormalities concerns. Given her wheezing and influenza status we did discuss potential treatment options. She has already been using bwyk-gsu-usmuxlp remedies such as antihistamines, Mucinex, Tylenol. Offered her steroids to try and decrease the bronchial inflammation causing her wheezing and she was given a dose here and sent home with 5 day course of prednisone. Patient was given strict return precautions as well as instructions to follow-up with her PCP which she verbalized understanding. She was safe for discharge at this time. Medical Records Medical records reviewed: Yes I reviewed the external patient's medical records. Vital Signs Vital Signs: Vital Signs Respiratory Rate 19 05/30/24 10:47 Pulse Oximetry 94 05/30/24 10:47 Temperature 36.6 C 05/30/24 10:50 Pulse Rate 100 05/30/24 10:50 Respiratory Rate 19 05/30/24 10:50 Blood Pressure 116/77 05/30/24 10:50 Pulse Oximetry 93 05/30/24 10:50 Oxygen Delivery Room Air 05/30/24 10:50 Lab Data Lab results reviewed: Yes I reviewed the patient's lab results. 05/30/24 11:45 05/30/24 11:45 Labs: Lab Results 05/30/24 Range/Units 11:45 WBC 3.0 L (4.5-10.0) K/mm3 RBC 4.08 L (4.2-5.4) M/mm3 Hgb 13.1 (12.0-15.0) g/dL Hct 39.5 (37.0-47.0) % MCV 96.8 (80-100) fl MCH 32.1 (26-34) pg MCHC 33.2 (32-36) g/dl RDW 13.4 (11.5-14.5) % Plt Count 136 L (150-375) k/mm3 MPV 9.9 (7.4-10.4) fl Immature Gran % (Auto) 0.3 (0-0.5) % Neut % (Auto) 81.8 H (45.5-73.1) % Lymph % (Auto) 12.3 L (18.3-44.2) % Wirt % (Auto) 4.3 (2.6-8.5) % Eos % (Auto) 1.0 (0-4.4) % Baso % (Auto) 0.3 (0.2-1.2) % Lymph # (Auto) 0.37 L (0.9-3.2) K/mm3 Wirt # (Auto) 0.1 (0.1-0.6) K/mm3 Eos # (Auto) 0.0 (0-0.3) K/mm3 Baso # (Auto) 0.0 (0.0-0.1) K/mm3 Abs Immat Gran (auto) 0.01 (0.00-0.031) K/mm3 Absolute Neuts (auto) 2.5 (1.3-6.7) K/mm3 Absolute Nucleated RBC 0.000 (0.0-0.012) K/mm3 Nucleated RBC % 0.0 (0.0-0.2) % Sodium 138 (137-145) mmol/L Potassium 3.3 L (3.4-5.0) mmol/L Chloride 102 (98-107) mmol/L Carbon Dioxide 26 (22-30) mmol/L Anion Gap 10 (4-12) mmol/L BUN 11 (7-17) mg/dL Creatinine 0.69 L (0.7-1.0) mg/dL Estim Creat Clear Calc 68 ml/min Estimated GFR > 60 (59 - ) Glucose 150 H (65-110) mg/dL Calcium 9.0 (8.4-10.2) mg/dL Total Bilirubin 0.4 (0.2-1.3) mg/dL AST 31 (14-36) U/L ALT 25 (6-35) U/L Alkaline Phosphatase 69 (38-126) U/L Total Protein 7.0 (6.3-8.2) g/dL Albumin 3.7 (3.5-5.1) g/dL Influenza A (RT-PCR) Positive A (Negative) Influenza B (RT-PCR) Negative (Negative) RSV (RT-PCR) Negative (Negative) SARS-CoV-2 RNA (RT-PCR) Negative (Negative) Imaging Data Attestation: I personally reviewed and interpreted this imaging study as follows: My impression: Impressions Chest X-Ray 05/30/24 11:43 Impression: Clear lungs. Cardiomegaly. Head CT 05/30/24 12:23 Impression: No intracranial hemorrhage, mass, or acute infarct. 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 Atrophy and chronic white matter changes, as above. Discharge Plan Discharge Clinical Impression: Influenza A, Bilateral wheezing, Closed head injury, Fall Patient Disposition: Home, Self-Care Condition: Stable Instructions: Antibiotic Form, Influenza (DC), Viral Syndrome (ED) Additional Instructions: Your workup appears very reassuring. You did test positive for influenza but do not have any pneumonia or concerning findings on your laboratory studies or CT scan. You do have mild wheezing in both your lungs which could be some inflammation in the larger airways such as the bronchials. We will send you home with 5 days worth of steroids to help decrease this and we encourage you to continue taking your antihistamine, Mucinex, Tylenol and other ljyx-lsg-gkkhtgj remedies until your symptoms improve. Follow-up with regular doctor, return with any new or worsening concerns. Patient Language: Croatian Prescriptions: New prednisone 50 mg tablet 50 mg PO DAILY 5 Days Qty: 5 0RF Follow-up/Referrals: Ildefonso Peralta MD [Primary Care Provider] - Time of Disposition: 12:46
[2024-05-30 11:50] LABS: Basophils Percent Auto 0.3 % (0.2-1.2); Hematocrit 39.5 % (37.0-47.0); Hemoglobin 13.1 g/dL (12.0-15.0); Immature Granulocyte Absolute 0.01 K/mm3 (0.00-0.031); Immature Granulocyte Percent A 0.3 % (0-0.5); Lymphocytes Absolute Auto 0.37 K/mm3 (0.9-3.2); Lymphocytes Percent Auto 12.3 % (18.3-44.2); Mean Corpuscular HGB Conc 33.2 g/dl (32-36); Mean Corpuscular Hemoglobin 32.1 pg (26-34); Mean Corpuscular Volume 96.8 fl (80-100); Mean Platelet Volume 9.9 fl (7.4-10.4); Monocytes Absolute Auto 0.1 K/mm3 (0.1-0.6); Monocytes Percent Auto 4.3 % (2.6-8.5); Neutrophils Absolute Auto 2.5 K/mm3 (1.3-6.7); Neutrophils Percent Auto 81.8 % (45.5-73.1); Platelet Count Result 136 k/mm3 (150-375); Red Blood Count 4.08 M/mm3 (4.2-5.4); Red Cell Distribution Width 13.4 % (11.5-14.5)
[2024-05-30 11:59] LABS: Alanine Aminotransferase 25 U/L (6-35); Albumin Level 3.7 g/dL (3.5-5.1); Alkaline Phosphatase 69 U/L (38-126); Anion Gap 10 mmol/L (4-12); Aspartate Amino Transferase 31 U/L (14-36); Bilirubin,Total 0.4 mg/dL (0.2-1.3); Blood Urea Nitrogen 11 mg/dL (7-17); Carbon Dioxide 26 mmol/L (22-30); Chloride 102 mmol/L (98-107); Estimated CRCL calculation 68 ml/min; Estimated Glomerular Filt Rate > 60; Glucose 150 mg/dL (65-110); Potassium 3.3 mmol/L (3.4-5.0); Sodium 138 mmol/L (137-145)
[2024-05-30 12:25] LABS: Influenza A QL RT-PCR Positive (Negative); Influenza B QL RT-PCR Negative (Negative); RSV RNA, RT-PCR Negative (Negative); SARS-CoV-2 RNA PCR Negative (Negative)
[2024-05-30] MEDS: predniSONE 40 MG, predniSONE 10 MG 50 MG PO (13:09)
== END 2024-05-30 13:23 | disposition home or self-care (01) ==
PROVIDERS: Emergency Provider Student in an Organized Health Care Education/Training Program; PCP Emergency Medicine
DX: J10.1 Influenza due to other identified influenza virus with other respiratory manifestations (principal); R06.2 Wheezing; S09.90XA Unspecified injury of head, initial encounter; Z20.822 Contact with and (suspected) exposure to COVID-19; G25.0 Essential tremor; I10 Essential (primary) hypertension; E03.9 Hypothyroidism, unspecified; R29.6 Repeated falls; G93.89 Other specified disorders of brain; W19.XXXA Unspecified fall, initial encounter
CPT/HCPCS: 36415; 70450; 71046; 80053; 85025; 87637; 99284; J7512

== ENCOUNTER 2024-06-10 14:52 | Outpatient (CLI) | payer MEDICARE, SELFPAY ==
--- NOTE | ~2024-06-10 | CT_ITS ---
CT of the Abdomen and Pelvis: Indication: Hematuria Technique: 2.5 mm axial scans were obtained through the abdomen and pelvis prior to and following in travenous administration of 130 cc of Omnipaque 350. Dose reduction technique was used on this scan b y utilizing automated exposure control and iterative reconstruction technique. The dose-length produc t (DLP) was 2992.71 mGy-cm. Findings: Scans through the lung bases are unremarkable. Left hepatic lobe cysts are present. Gallbladder absent. The spleen, pancreas, adrenals and kidneys are within normal limits. No evidence of aortic aneurysm. No lymphadenopathy. No bowel obstruction or bowel wall thickening. There is no evidence to suggest acute appendicitis. Images through the pelvis were performed. Suspected small uterine fibroids versus other heterogeneous appearance of the uterus. Urinary bladder unremarkable. No other adnexal mass seen. No ascites. Degenerative spondylosis of lumbar spine noted. Impression: No etiology for hematuria identified. Probable multiple small uterine fibroids. Reviewed, dictated and finalized at [facility]. Impression: No etiology for hematuria identified. Probable multiple small uterine fibroids.
--- OUTSIDE RECORDS SUMMARY | 2024-06-10 15:19 | XMS_ITS | Patient Health Record ---
Author Organization [facility] Address [address] [facility] [place] [address] Care Team Providers Care Pv Design And Installation Technician Name Role Phone PetronaAdriano Unavailable doctor, Dr madrigal Unavailable Unavailable Reason For [...] Stiffness of joint of left foot (finding) (662018544827382) Stiffness of left foot, not elsewhere classified (M25.675) Active confirmed Problem Instability of joint of left foot (finding) (42621543768784467) Other instability, left foot (M25.375) Active confirmed Problem Enthesopathy of foot region (912832575) Other enthesopathy of left foot (M77.52) Active confirmed Problem Metatarsalgia of left foot (402928289397437) Metatarsalgia, left foot (M77.42) Active confirmed Problem Atherosclerosis of [place] arteries of the extremities (710533138951828) Unspecified atherosclerosis of [place] arteries of extremities, bilateral legs (I70.203) Active confirmed Problem 4113877870009731 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, 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) Active confirmed Problem Stiffness of joint of right foot (finding) (026301025050624) Stiffness of right foot, not elsewhere classified (M25.674) Active confirmed Problem Peripheral venous insufficiency (66364904) Venous insufficiency (chronic) (peripheral) (I87.2) Active confirmed Problem Pain in limb (78512990) Pain of left foot (M79.672) Active confirmed Problem Arthralgia of the ankle and/or foot (819004785) Pain in joint, ankle and foot, left [...] Part B [address] [place] [phone] [id number] Silvana Hare Self - patient is the insured 8 [employer] Supplement [address] [facility] [place] [place] [address] [id number] Silvana Hare Self - patient is the [...] surgery 2015 brain 2018 various elective sx [phone] Hospitalization History Reason Date(Month/Year) see above
--- OUTSIDE RECORDS SUMMARY | 2024-06-10 15:19 | XMS_ITS | Data Portability ---
Author Organization [place] [facility], Main Office Address [address] [place] [address] [address] [place] [address] Assessment No assessment recorded. Plan of Treatment [...] cter) . Not Available [facility] [address], [place], [address], 06/03/2023 01:50:29 05/30/1906/03/2023 SURES WAB(R ) ADV BACTE RIAL VAGIN OSIS (BV), TMA sureswab(R) adv bacterial vaginosis (bv), tma NEGATI VE negati ve normal Not Available [facility] [address], [place], [address], 06/03/2023 02:09:02 05/30/19 24 06/03/2023 SURES WAB(R ) ADV [place] DA VAGIN ITIS (CV), TMA alfredo species NOT DETECT ED not detect ed normal Not Available [facility] [address], [place], [address], 06/03/2023 02:09:03 05/30/19 24 06/03/2023 SURES WAB(R [...] resul t. Not Available [facility] [address], [place], [address], 06/03/2023 02:09:03 05/30/19 24 06/03/2023 CULTU RE, [...] port Tube. Not Available [facility] [address], [place], [address], 06/03/2023 02:13:30 05/30/19 24 05/30/2023 LIQUI D-BAS ED pdf ACF Not Available [facility] [address] [place] [address], [place], [address], 06/05/2023 18:34:22 06/17/19 24 06/17/2023 PATHO LOGY pdf [facility] Not Available [facility] [address] [place] [address], [place], [address], 06/22/2023 18:11:11 06/13/19 24 06/05/2023 [place], pelvi [...] Note [address] Main Office [address] [facility] [employer] [address] [place] [address] 05/30/2023 14:31:48 07/09/2023 10:21:30 [address] [facility] [address] [place] [address] 06/17/2023 09:59:46 06/17/2023 12:49:35 [address] Main Office [address] [place], [place] [address] [address] [place] [address] 07/15/2023 13:36:49 07/15/2023 14:44:17 Health Concerns Section Related Observation LastModified by Organization Detai ls LastModified Time None Recorded Concern Status LastModified by Organization Details LastModified Time None Recorded Advance Directives Directive None Recorded Payers Encounter Date Sequence Insurance Name Policy Number Policy Schilling Covered Member ID Schilling Member ID Guarantor Name 05/30/2023 2 [employer] OPTIONS (MEDICARE SUPPLEMENT) Silvana Villanueva Payam [id number] Silvana Payam 05/30/2023 1 [place] Silvana F Payam [id number] Silvana Payam 06/17/2023 2 [employer] OPTIONS (MEDICARE SUPPLEMENT) Silvana Villanueva Payam [id number] Silvana Payam 06/17/2023 1 [place] Silvana F Payam [id number] Silvana Payam 07/15/2023 2 [employer] OPTIONS (MEDICARE SUPPLEMENT) Silvana Villanueva Payam [id number] Silvana Payam 07/15/2023 1 [place] Silvana F Payam [id number] Silvana Payam OBGyn Episode No OBEpisode recorded.
--- OUTSIDE RECORDS SUMMARY | 2024-06-10 15:20 | XMS_ITS | Data Portability ---
Author Organization [place] - [employer], [employer], [facility] Address [address] [place] [address] Care Team Providers Care Launchman Name Role Phone DEBI MATOS Primary Care Provider KARAN YAP Referring Provider [phone] ANN-MARIE KLINE Referring Provider BRENDA PROCTOR OTHER SANTA RUBIO OTHER JOSE [...] Care Coordination (not separately reported) Additional notes: [email or web address] Not available 08/12/2023 16:50:23 09/30/2023 09/30/2023 A [...] Care Coordination (not separately reported) Additional notes: [email or web address] Not available 09/30/2023 14:03:40 11/26/2023 11/26/2023 A [...] None recorded. Lab respiratory allergen panel - [facility] 2023 024 [place] [facility], [address] [place], [address], 4 04:34:48 CBC 2023 024 [place] [facility], [address], [place], [address], 4 04:34:56 vitamin B12 2014 015 [email or web address] [email or web address] [facility], [address] [place], [address], 5 10:40:49 insulin like growth factor 1 (igf-I) [address] [facility], [address], [place], [address], 5 10:40:49 cortisol, free 24-hour urine lc/ms/ms [address] [facility], [address], [place], [address], 5 10:40:49 comprehensi ve metabolic panel 2014 015 [address] [facility], [address], [place], [address], 5 10:40:49 T4 free 2014 015 [address] [facility], [address], [place], [address], 5 10:40:49 thyroid stimulating hormone (TSH) 2014 015 [address] [facility], [address] [place], [address], 5 10:40:49 venipunctur e 1 2014 015 [address] [facility], [address], [place], [address], 5 10:40:49 Referral None recorded. Procedures noninvasive ear or pulse oximetry by continuous overnight monitoring (PROC) 2023 024 [email or web address] Not available 13:19:27 polysomnogr aphy, split night (PROC) - split night with bipap titration 2023 024 [email or web address] Ree Hairston MD, [address] [facility] [address], [place], [address], 09:24:04 Surgeries None recorded. Imaging CT, chest, w/o contrast 2023 024 [facility], [address], [place], [address], 4 09:19:53 Medication Orders codeine 10 mg-guaifene sin 100 mg/5 mL oral liquid 2014 015 [email or web address] Not available 5 16:16:12 Patient TargetsNo targets recorded. Patient Instructions Encounter Date Encounter Id Patient Instructions Last Modified By Organization Details Last Modified Time 08/12/2023 [id number] maggy's thyroiditis: care instructions [email or web address] Not available 08/12/2023 16:49:24 pneumonia: care instructions [email or web address] Not available 08/12/2023 16:49:24 sleep apnea: car e instructions [email or web address] Not available 08/12/2023 16:49:24 -Outside records from patient's hospitalization at [facility] reviewed in detail as well as records in [place] from primary care and cardiology reviewed -Please note: This note was completed using a voice recognition software. All reasonable attempts have been made to correct errors, however; any typographical, unanticipated grammatical, syntax, homophones and other interpretative errors are unintentional. Please disregard these errors. [email or web address] Not available 08/12/2023 16:51:33 09/30/2023 [id number] epworth sleepine ss scale* [email or web address] Not available 09/30/2023 14:07:22 complete PFT w/ post bronchodilator spirometry* [place] Not available 02/01/2024 04:21:33 -Outside records from patient's hospitalization at [facility] reviewed in detail as well as records in [place] from primary care and cardiology reviewed -Please note: This note was completed using a voice recognition software. All reasonable attempts have been made to correct errors, however; any typographical, unanticipated grammatical, syntax, homophones and other interpretative errors are unintentional. Please disregard these errors. Not available 09/29/2023 18:37:41 11/26/2023 [id number] high cholesterol : care instructions Not available 11/26/2023 12:15:02 -Outside records from patient's hospitalization at [facility] reviewed in detail as well as records in [place] from primary care and cardiology reviewed -Please note: This note was completed using a voice recognition software. All reasonable attempts have been made to correct errors, however; any typographical, unanticipated grammatical, syntax, homophones and other interpretative errors are unintentional. Please disregard these errors. [email or web address] Not available 11/26/2023 01:14:04 Reason for Referral None Reported. Results Created Date Observation Date Name Description Value Unit Range Abnormal Flag Note LastModifiedBy Organization Detail LastModifiedTime 10/21/19 15 10/28/2014 CMP, serum or plasm a glucose 105 mg/dL 65-99 high Fasti ng refer ence inter ricky Not Available [facility] [address] [place], [address], 11/17/2014 15:37:23 10/21/19 15 10/28/2014 CMP, serum or plasm a urea nitrogen (BUN) 13 mg/dL 7-25 Not Available [facility] [address], [place], [address], 11/17/2014 15:37:23 10/21/19 15 10/28/2014 CMP, serum or plasm a creatinine 0.64 mg/dL 0.60-0 .93 For patie nts >49 years of age, the refer ence limit for Creat inine is appro ximat jerson 13% highe r for peopl e ident ified as Afric an-Am marimar n. Not Available [facility] [address], [place], [address], 11/17/2014 15:37:23 10/21/19 15 10/28/2014 CMP, serum or plasm a eGFR non-afr. palauan 90 mL/mi n/1.7 3m2 > or = 60 Not Available [facility] [address] [place], [address], 11/17/2014 15:37:23 10/21/19 15 10/28/2014 CMP, serum or plasm a eGFR 104 mL/mi n/1.7 3m2 > or = 60 Not Available [facility] [address] [place], [place] [address]y [address] [place], [address], 11/17/2014 15:37:23 10/21/19 15 10/28/2014 CMP, serum or plasm a BUN/creatini ne ratio NOT APPLIC ABLE (calc ) 6-22 Not Available [facility] [address] [place], [place] [address]y [address] [place], [address], 11/17/2014 15:37:23 10/21/19 15 10/28/2014 CMP, serum or plasm a sodium 141 mmol/ L 135-14 6 Not Available [facility] [address] [place], [place] [address]y [address] [place], [address], 11/17/2014 15:37:23 10/21/19 15 10/28/2014 CMP, serum or plasm a potassium 3.8 mmol/ L 3.5-5. 3 Not Available [facility] [address] [place], [place] [address]y [address] [place], [address], 11/17/2014 15:37:23 10/21/19 15 10/28/2014 CMP, serum or plasm a chloride 103 mmol/ L 98-110 Not Available [facility] [address] [place], [place] [address]y [address] [place], [address], 11/17/2014 15:37:23 10/21/19 15 10/28/2014 CMP, serum or plasm a carbon dioxide 27 mmol/ L 19-30 Not Available [facility] [address] [place], [place] [address]y [address] [place], [address], 11/17/2014 15:37:23 10/21/19 15 10/28/2014 CMP, serum or plasm a calcium 9.6 mg/dL 8.6-10 .4 Not Available [facility] [address] [place], [place] [address]y [address], [place], [address], 11/17/2014 15:37:23 10/21/19 15 10/28/2014 CMP, serum or plasm a protein, total 6.5 g/dL 6.1-8. 1 Not Available [facility] [address] [place], [place] [address]y [address], [place], [address], 11/17/2014 15:37:23 10/21/19 15 10/28/2014 CMP, serum or plasm a albumin 4.2 g/dL 3.6-5. 1 Not Available [facility] [address] [place], [place] [address]y [address] [place], [address], 11/17/2014 15:37:23 10/21/19 15 10/28/2014 CMP, serum or plasm a globulin 2.3 g/dL_ (calc ) 1.9-3. 7 Not Available [facility] [address] [place], [place] [address]y [address] [place], [address], 11/17/2014 15:37:23 10/21/19 15 10/28/2014 CMP, serum or plasm a albumin/glob ulin ratio 1.8 (calc ) 1.0-2. 5 Not Available [facility] [address] [place], [place] [address]y [address], [place], [address], 11/17/2014 15:37:23 10/21/19 15 10/28/2014 CMP, serum or plasm a bilirubin, total 0.5 mg/dL 0.2-1. 2 Not Available [facility] [address] [place], [place] [address]y [address], [place], [address], 11/17/2014 15:37:23 10/21/19 15 10/28/2014 CMP, serum or plasm a alkaline phosphatase 83 U/L 33-130 Not Available [facility] [address] [place] [address] [address] [place], [address], 11/17/2014 15:37:23 10/21/19 15 10/28/2014 CMP, serum or plasm a AST 18 U/L 10-35 Not Available [facility] [address] [place] [address] [address] [place], [address], 11/17/2014 15:37:23 10/21/19 15 10/28/2014 CMP, serum or plasm a ALT 16 U/L 6-29 Not Available [facility] [address] [place] [address], [address], 11/17/2014 15:37:23 10/21/19 15 10/28/2014 T4, free, serum T4, free 1.0 NG/dL 0.8-1. 8 Not Available [facility] [address] [place] [address], [address], 11/17/2014 15:37:24 10/21/19 15 10/28/2014 TSH, serum or plasm a TSH 2.43 mIU/L 0.40-4 .50 Not Available [facility] [address] [place] [address], [address], 11/17/2014 15:37:25 10/21/19 15 10/28/2014 vitam in B12, serum vitamin B12 715 pg/mL 200-11 00 REPOR T COMME NT: FASTI NG:NO Not Available [facility] [address] [place] [address] [address] [facility], [place], [address], 11/17/2014 15:37:26 10/21/19 15 10/28/2014 igf-1 (insu nuzhat gamez growt h facto r), serum igf I, lc/MS 129 NG/mL 34-245 Not Available [facility] [address] [facility] [address] [place], [address], 11/17/2014 15:37:27 10/21/19 15 10/28/2014 igf-1 (insu katerine-l franco growt h facto r), serum Z score (female) 0.4 SD -2.0 - +2.0 This test was julietel dom and its perfo rmanc e maroi cteri stics have been deter mined by Thierry Perez . Perfo rmanc e mario cteri stics refer to the jessica tical perfo rmanc e of the test. Not Available [facility] [address] [facility] [address] [place], [address], 11/17/2014 15:37:27 10/21/19 15 10/28/2014 corti miah, free, 24-ho ur urine total volume 1000 mL Not Available [facility] [address] [facility] [address] [place], [address], 11/17/2014 15:37:28 10/21/19 15 10/28/2014 corti miah, free, 24-ho ur urine cortisol, free, urine 17.8 mcg/2 4_h 4.0-50 .0 Jessica sis perfo rmed by Kimberlyn Arriaga Spect romet ry Not Available [facility] [address] [facility] [address] [place], [address], 11/17/2014 15:37:28 10/21/19 15 10/28/2014 corti miah, free, 24-ho ur urine creatinine, urine 1.14 g/24_ h 0.63-2 .50 Not Available [facility] [address] [facility] [address] [place], [address], 11/17/2014 15:37:28 10/24/19 24 10/25/2023 CBC WITH DIFFE RENTI AL/PL ATELE T WBC 5.1 x10e3 /uL 3.4-10 .8 normal Not Available [facility] ([facility]) [address] [facility], [place], [address], 10/25/2023 06:13:26 10/24/19 24 10/25/2023 CBC WITH DIFFE RENTI AL/PL ATELE T RBC 4.59 x10e6 /uL 3.77-5 .28 normal Not Available [facility] ([facility]) [address] [facility], [place], [address], 10/25/2023 06:13:26 10/24/19 24 10/25/2023 CBC WITH DIFFE RENTI AL/PL ATELE T hemoglobin 14.6 g/dL 11.1-1 5.9 normal Not Available [facility] ([facility]) [address] [facility], [place], [address], 10/25/2023 06:13:26 10/24/19 24 10/25/2023 CBC WITH DIFFE RENTI AL/PL ATELE T hematocrit 44.1 % 34.0-4 6.6 normal Not Available [facility] ([facility]) [address] [facility], [place], [address], 10/25/2023 06:13:26 10/24/19 24 10/25/2023 CBC WITH DIFFE RENTI AL/PL ATELE T MCV 96 fL 79-97 normal Not Available [facility] ([facility]) [address] [place], [address], 10/25/2023 06:13:26 10/24/1910/25/2023 CBC WITH DIFFE RENTI AL/PL ATELE T MCH 31.8 pg 26.6-3 3.0 normal Not Available [facility] ([facility]) [address] [place], [address], 10/25/2023 06:13:26 10/24/19 24 10/25/2023 CBC WITH DIFFE RENTI AL/PL ATELE T MCHC 33.1 g/dL 31.5-3 5.7 normal Not Available [facility] ([facility]) [address] [facility], [place], [address], 10/25/2023 06:13:26 10/24/19 24 10/25/2023 CBC WITH DIFFE RENTI AL/PL ATELE T RDW 13.4 % 11.7-1 5.4 Not Available [facility] ([facility]) [address] [facility], [place], [address], 10/25/2023 06:13:26 10/24/19 24 10/25/2023 CBC WITH DIFFE RENTI AL/PL ATELE T platelets 251 x10e3 /uL 150-45 0 normal Not Available [facility] ([facility]) [address] [facility], [place], [address], 10/25/2023 06:13:26 10/24/19 24 10/25/2023 CBC WITH DIFFE RENTI AL/PL ATELE T neutrophils 58 % not estab. normal Not Available [facility] ([facility]) [address] [facility], [place], [address], 10/25/2023 06:13:26 10/24/19 24 10/25/2023 CBC WITH DIFFE RENTI AL/PL ATELE T lymphs 30 % not estab. normal Not Available [facility] ([facility]) [address] [place], [address], 10/25/2023 06:13:26 10/24/19 24 10/25/2023 CBC WITH DIFFE RENTI AL/PL ATELE T monocytes 9 % not estab. normal Not Available [facility] ([facility]) [address] [place], [address], 10/25/2023 06:13:26 10/24/19 24 10/25/2023 CBC WITH DIFFE RENTI AL/PL ATELE T eos 2 % not estab. normal Not Available [facility] ([facility]) [address] [place], [address], 10/25/2023 06:13:26 10/24/19 24 10/25/2023 CBC WITH DIFFE RENTI AL/PL ATELE T basos 1 % not estab. normal Not Available [facility] ([facility]) [address] [place], [address], 10/25/2023 06:13:26 10/24/1910/25/2023 CBC WITH DIFFE RENTI AL/PL ATELE T neutrophils (absolute) 3.0 x10e3 /uL 1.4-7. 0 normal Not Available [facility] ([facility]) [address] [place], [address], 10/25/2023 06:13:26 10/24/19 24 10/25/2023 CBC WITH DIFFE RENTI AL/PL ATELE T lymphs (absolute) 1.5 x10e3 /uL 0.7-3. 1 normal Not Available [facility] ([facility]) [address] [place], [address], 10/25/2023 06:13:26 10/24/19 24 10/25/2023 CBC WITH DIFFE RENTI AL/PL ATELE T monocytes(ab solute) 0.5 x10e3 /uL 0.1-0. 9 normal Not Available [facility] ([facility]) [address] [place], [address], 10/25/2023 06:13:26 10/24/1910/25/2023 CBC WITH DIFFE RENTI AL/PL ATELE T eos (absolute) 0.1 x10e3 /uL 0.0-0. 4 normal Not Available [facility] ([facility]) [address] [place], [address], 10/25/2023 06:13:26 10/24/19 24 10/25/2023 CBC WITH DIFFE RENTI AL/PL ATELE T baso (absolute) 0.0 x10e3 /uL 0.0-0. 2 normal Not Available [facility] ([facility]) [address] [facility], [place], [address], 10/25/2023 06:13:26 10/24/19 24 10/25/2023 CBC WITH DIFFE RENTI AL/PL ATELE T immature granulocytes 0 % not estab. Not Available [facility] ([facility]) [address] [facility], [place], [address], 10/25/2023 06:13:26 10/24/19 24 10/25/2023 CBC WITH DIFFE RENTI AL/PL ATELE T immature grans (abs) 0.0 x10e3 /uL 0.0-0. 1 Not Available [facility] ([facility]) [address] [facility], [place], [address], 10/25/2023 06:13:26 10/24/19 24 10/24/2023 ABN OPTIO [...] neces aguila follo w-up. Not Available [facility] ([facility]) [address] [facility], [place], [address], 10/25/2023 06:13:27 08/12/19 24 07/20/2023 XR, chest No observ ation record ed. Not Available 2023 09:29:45 08/12/19 24 07/16/2023 CT, angio gram, chest , w/ contr ast No observ ation record ed. Not Available 2023 09:31:06 08/12/19 24 07/16/2023 XR, chest No observ ation record ed. [email or web address] Not Available 2023 09:33:01 08/14/19 24 07/24/2016 polys omnog salty , split night (PROC ) No observ ation record ed. [facility] [address], [place], [address], 10/21/2023 09:24:03 09/30/19 24 09/12/2023 CT, chest , w/o contr ast No observ ation record ed. [id number] [facility] [address], [place], [address], 09/30/2023 09:19:58 10/01/19 24 09/30/2023 nonin vasiv e ear or pulse oxime try by claudio holleyn ight monit oring (PROC ) No observ ation record ed. [email or web address] Not Available 10/01 17:16:45 10/02/19 24 09/30/2023 CPAP compl iance * No observ ation record ed. [email or web address] Not Available 2023 19:12:09 11/10/19 6 minut e walk test* No observ ation record ed. [facility] Not Available 2023 15:29:33 11/25/19 24 11/25/2023 compl ete PFT w[facility] graciela metry * No observ ation record ed. [email or web address] Not Available 2023 12:57:46 Result Notes None recorded. Problems Name Problem SNOMED Code Status Onset Date Resolution Date Notes Provider Name and Address Organization Details Recorded Time Obstructive sleep apnea syndrome 75865774 Active 2023 TAMIKO SRIVASTAVA APRN [address], [place], [address], [facility] - [facility], [facility] 13:49:21 Bacteremia caused by Gram-negati ve bacteria 208943872925 Active 2023 TAMIKO SRIVASTAVA APRN [address], [place], [address], [facility], [facility] 4 15:57:25 Pneumonia 601352303 Active 2023 TAMIKO SRIVASTAVA APRN [address], [place], [address], [facility], [facility] 4 15:57:32 Morbid obesity 474060368 Active 2023 TAMIKO SRIVASTAVA APRN [address], [place], [address], [facility], [facility] 4 15:57:40 Maggy thyroiditis 11304935 Active 2023 TAMIKO SRIVASTAVA APRN [address], [place], [address], [facility], [facility] 4 15:58:49 Dyspnea 323697286 Active 2023 TAMIKO SRIVASTAVA APRN [address], [place], [address], [facility], [facility] 4 15:59:04 Fatigue 54617582 Active MD Antoine Benite[address], [place], [address], [facility], [facility] 5 16:16:11 Abnormal weight gain 450512433 Active MD Antoine Benitez [address], [place], [address], [facility], [facility] 5 12:48:55 Macrocytosi s 953589356 Active MD Antoine Benitez [address], [place], [address], [facility], [facility] 5 12:48:55 Tremor 28423874 Active MD Antoine Benitez [address], [place], [address], [place] [facility], [facility] 5 12:48:55 Bronchitis [id number] Jonel Kline MD [address], [place], [address], [facility], [facility] 5 16:16:12 Pure hypercholes terolemia [id number] Jonel Kline MD [address], [place], [address], [facility], [facility] 5 16:16:12 Obesity [id number] Jonel Kline MD [address], [place], [address], [facility], [facility] 5 16:16:12 Benign essential hypertensio n [id number] Jonel Kline MD [address], [place], [address], [facility], [facility] 5 16:16:12 Problem Notes None recorded. Procedures Surgical History Date Name Laterality Status Provider Name and Address Organization Details Recorded Time Cholecystectomy completed [facility] 10/20/2014 11:40:37 Joint replacement, Knee completed [facility] 10/20/2014 11:40:37 Other completed [facility] 10/20/2014 11:40:37 Other completed [facility] 10/20/2014 11:40:37 Imaging Results Imaging Date Name Status LastModified by Organization Details LastModified Time 07/20/2023 XR, chest completed Information no t available 08/12/2023 09:29:45 07/16/2023 CT, angiogram, chest, w/ contrast completed Information not available 08/12/2023 09:31:06 07/16/2023 XR, chest completed Information no t available 08/12/2023 09:33:01 07/24/2016 polysomnography, split night (PROC) completed [facility] [address], [place], [address], 10/21/2023 09:24:03 09/12/2023 CT, chest, w/o contrast completed [address] [facility] Scheduling [address], [place], [address], 09/30/2023 09:19:58 09/30/2023 noninvasive ear or pulse oximetry by continuous overnight monitoring (PROC) completed [email or web address] Information not available 10/02/2023 17:16:45 09/30/2023 CPAP compliance* completed [email or web address] Informat ion not available 10/12/2023 19:12:09 11/10/2023 [...] Name and Address Organization Details Recorded Time [id number] ciproflox acin medicatio n Not available Not available Not available 09/30/20232022 2551 RxNorm [place] - [facility], [facility] 4 13:31:15 [id number] Cortispor in medicatio n Not available Not available Not available 10/20/2014 33296 RxNorm Kayla delaney [place] - [facility], [facility] 5 11:30:23 Medications Name Sig Start Date [...] Details Last Updated DateTime 5 15 /min 453088. 29061 g 162.56 cm 37.9 kg/m2 88 /min 98.4 [degF] 134 mm[Hg] 80 mm[Hg] Kayla Art [facility], [facility] 5 11:30:23 Date Recorded Body height Respiratory rate Body weight Body mass index (BMI) Body temperature Heart rate Systolic blood pressure Diastolic blood pressure Provider Name and Address Organization Details Last Updated DateTime 5 162.56 cm 14 /min 498072. 25284 g 38.4 kg/m2 98.2 [degF] 94 /min 120 mm[Hg] 80 mm[Hg] Kayla Art [facility], [facility] 5 15:23:01 Date Recorded Body height Body mass index (BMI) Body weight Heart rate Oxygen saturation Oxygen saturation in Arterial blood by Pulse oximetry Inhaled oxygen flow rate Systolic blood pressure Diastolic blood pressure Provider Name and Address Organization Details Last Updated DateTime 4 162.56 cm 41.2 kg/m2 027229. 17 g 73 /min 90 % 90 % 2 L/min 131 mm[Hg] 109 mm[Hg] Natalia Long [facility], [facility] 4 16:02:25 Date Recorded Body height Body mass index (BMI) Body weight Heart rate Oxygen saturation Oxygen saturation in Arterial blood by Pulse oximetry Systolic blood pressure Diastolic blood pressure Provider Name and Address Organization Details Last Updated DateTime 4 162.56 cm 42.1 kg/m2 250626. 13 g 71 /min 93 % 93 % 125 mm[Hg] 82 mm[Hg] Little Lira [facility], [facility] 4 13:30:52 Social History Question Answer Notes LastModified by Organizat ion Details LastModified Time Tobacco Smoking Status Former Smoker ISA Rank[place] - [facility], [facility] 08/12/2023 16:03:57 What Is Your Level Of Alcohol Consumption? Occasional Information not available 08/12/2023 How Many Times Per Week Do You Consume Alcohol? 5-7 Times Per Week Information not available 08/12/2023 When Did You Quit Smoking? 16+yearssincel astcigarette Information not available 08/12/2023 Alcohol Use 1-2 Per Day Informatio n not available 10/20/2014 Do You [...] Time What is your exercise level? Occasional [id number] Information not available 10/20/2014 Mental Status None [...] SNOMED-CT Code Diagnosis ICD10 Code Diagnosis Note [id number] Kayla Art [facility] ENDOCRINO [address] [place] [address] 10/20/2014 11:13:19 10/20/2014 12:30:35 Fatigue 26127179 R/O hypothyroi dism. Abnormal weight gain 036040796 Will r/o Acromegaly and Inessa's Macrocytosis 557475943 W e will R/O Vit. B12 def. Tremor 54148935 Most likely Familiar Tremor, however she will discuss with Dr. Hinojosa. [id number] Ann-Marie Kline MD [facility] ENDOCRINO LOGY [address] [place] [address] 11/10/2014 15:13:32 11/10/2014 16:00:58 Fatigue 07334582 most likely due to stress, we have ruled out Thyroid disease. Bronchitis 28618571 Coug h does not allow her to sleep. She will take a cough syrup Pure hypercholesterolemia 908404667 On simvastati n. Obesity 462953440 With a BMI of 38.4. We will try Contrave if it is OK with Dr Hinojosa. Benign ess ential hypertension 9316843 Under control. [id number] TAMIOK SRIVASTAVA APRN [facility] [address] [facility] [place] [address] 08/12/2023 15:42:44 08/13/2023 14:42:40 Obstructive sleep apnea syndrome 11772815 G47.33 History of ANUSHA, non compliant on [...] in case. Bacteremia caused by Gram-negative bacteria 6193829821 08 A41.50 Klebsiella pneumonia bacteremia from community- acquired pneumonia, treated with cefepime while inpatient. Blood cultures were negative at discharge. Discharged home on cefpodoxim e for another 7 days. Pneumonia 148164230 J18. 9 CAP treated with cefepime while inpatient. At discharge blood cultures were clean. Discharged home on cefpodoxim e for another 7 days. 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 Yap, cardiology Detailed discussion had regarding need to monitor her salt and fluid intake [id number] TAMIKO SRIVASTAVA APRN [place] [address] [facility],[address] [address] 09/30/2023 13:23:06 10/11/2023 17:05:15 Obstructive sleep apnea syndrome 38917290 G47.33 Moderate ANUSHA with AHI 20.5 on PSG in 2017 with a REM AHI of 40 Plan:-Comp liance reviewed. She demonstrat es excellent compliance , good tolerance and is benefiting from its use-Contin ue BiPAP 16/12 cmH2O, easy breathe on-Fullfac e mask-Order sent to [facility] [place] for new supplies-W ill also obtain overnight [...] or operating heavy machinery, if somnolent Dyspnea 257308939 R06.00 Likely secondary to diastolic heart failure, obesity and deconditio chuck Plan:-Cont inue oxygen at 2L/NC as needed to keep SpO2 90% or greater-Ar range for pulmonary function testing now her pneumonia is resolved.- Continue with Lasix, managed by Dr. Yap, cardiology -We again reviewed importance of monitoring her salt and fluid intake-Haim l check RAST and CBC Bacteremia caused by Gram-negative bacteria 0485386712 08 A41.50 RESOLVED:K lebsiella pneumonia bacteremia from community- acquired pneumonia, treated with cefepime while inpatient. Blood cultures were negative at discharge. Discharged home on cefpodoxim e for another 7 days. Pneumonia 356527314 J18. 9 RESOLVED:- CAP treated with cefepime while inpatient. At discharge blood cultures were clean. Discharged home on cefpodoxim e for another 7 days. -Follow-up CT of the chest at [facility] on 09/12/2023 showed resolution of previously noted infiltrate s with minimal left lower lobe atelectasi s and no other acute findings. Morbid obesity 389289554 E66.01 Recommend to increase physical activity, weight loss and avoid further weight gain Maggy thyroiditis 21 085507 E06.3 Chronic, stable Managed by primary care [id number] Lc Greco MD [address] [address] 11/26/2023 11:26:40 11/26/2023 16:53:01 Obstructive sleep apnea syndrome 25796647 G47.33 Chronic and stable Moderate ANUSHA with AHI 20.5 on PSG in 2017 with a REM AHI of 40 Most recent download with 90% total compliance 40% for compliance Usage is 3 hours and 29 minutes She is on BiPAP 08/03 AHI is 2.2 and leak is at 48.4 L/min Dyspnea 824678145 R06.00 Chronic stable Has shortness of breath secondary to obesity and deconditio chuck and history of diastolic heart failure She has oxygen that she uses as needed No evidence of airflow obstructio n noted on the PFT yesterday Pneumonia 217306681 J18. 9 Chronic and stable I reviewed her CT from August which showed resolution of the infiltrate s Morbid obesity 409903782 E66.01 Chronic stable Continue with weight loss She likely has concomitan t obesity hypoventil ation syndrome Magyg thyroiditis 21 715259 E06.3 Chronic and stable She is on levothyrox ine 25 mcg daily Essential hypertension 78703214 I10 Chronic and stable She is on carvedilol 6.25 mg twice a day, losartan 50 mg daily Gastroesop hageal reflux disease without esophagitis 602822747 K21.9 Chronic and stable She is on pantoprazo le 40 mg daily Hyperlipidemia 51054356 E78.5 Chronic and stable She is on [...] 10/20/2014 1 [place] Silvana Shahid Payam [id number] Silvana Payam 10/20/2014 2 [facility] HEALTHCARE OPTION - PLAN F (MEDICARE SUPPLEMENT) Silvana Pringlezier Payam [id number] Silvana Payam 11/10/2014 1 [place] Silvana F Payam [id number] Silvana Payam 11/10/2014 2 [facility] HE[employer] OPTION - PLAN F (MEDICARE SUPPLEMENT) Silvana Pringlezier Payam [id number] Silvana Payam 08/12/2023 1 [place] Silvana F Payam [id number] Silvana Payam 08/12/2023 2 [employer] HE[employer] OPTION - PLAN F (MEDICARE SUPPLEMENT) Silvana Villanueva Payam [id number] Silvana Payam 09/30/2023 1 [place] Silvana F Payam [id number] Silvana Hare 09/30/2023 2 [facility] HEALTHCARE OPTION - PLAN F (MEDICARE SUPPLEMENT) Silvana Hare [id number] Silvana Hare 11/26/2023 1 [place] Silvana Hare [id number] Silvana Hare 11/26/2023 2 [facility] HEALTHCARE OPTION - PLAN F (MEDICARE SUPPLEMENT) Silvana Hare [id number] Silvana Hare Notes Date Note Type Note [...] hypernatremia and mild Macrocytosis. Ann-Marie Kline MD [address] [facility] [address], [place], [address], [facility], [facility] 10/20/2014 12:51:12 5 text/html Patient comes for f/u of HTN, Hypercholesteronemia, Hypothyroidism, Osteoporosis, patient is not feeling well: she feels tired ,can not walk more than 2 blocks, she had a heart ev and it was negative; weight is stable, we discuss the lab tests: IGF-1 129, TFT: WNL Vit B12 was: 715 Patient brings records of BS: Ann-Marie Kline MD [address], [place], [address], [employer] 11/10/2014 16:16:57 4 text/html She is here for hospital follow-up and management of sleep apnea, accompanied by her husbandShe was recently hospitalized at [facility] with acute pulmonary edema in the [...] of vivid dreamsDenies restless legs TAMIKO SRIVASTAVA, [address] STENOGRAPHER [address], [place], [address], [facility], [employer] 08/12/2023 16:53:28 4 text/html She is here [...] painDenies nasal congestion or PND Hospitalized at [facility] in June with acute pulmonary edema/diastolic [...] 2.295th percentile leak of 48.4 TAMIKO SRIVASTAVA, F[address] STENOGRAPHER [address] [address], [place], [address], [facility], [facility] 09/30/2023 14:46:25 4 text/html This visit was [...] given verbal consent to telehealth visit. Use [employer] on the [employer] as patient was unable to come into [...] up-to-date with her vaccinations Lc Greco MD [address] [address], [place], [address], [facility] Physician [facility], [facility] 11/26/2023 12:16:16 OBGyn Episode No OBEpisode recorded.
--- OUTSIDE RECORDS SUMMARY | 2024-06-10 15:20 | XMS_ITS | Encounter Summary ---
Author Organization [facility] Address [address] [place] [address] Care Team Providers Care Protective Services Social Worker Name Role Phone Jose Norton MD Primary Care Provider [phone] Encounter Details Date Type Department Care Team (Late st Contact Info) Description 05/13/2024 Abstract [facility], [address] [place] [address] Robe Mendoza MA Social History Tobacco Use [...] Description 08/24/2024 1:00 PM CDT Office Visit [facility]ispecialty Care - [address], [address] [place] [address] Monet Beltran MD [address] [place] [address] 09/03/2024 12:00 PM CDT Office Visit [facility] [address] Sadie Villasenor MD [facility] [address] [place] [address] documented as of this encounter Procedures Procedure [...] on filedocumented in this encounter Care Teams Protective Services Social Worker Relationship Specialty Start Date End Date Jose Norton MD [address] [place], [place] [id number] PCP - General FAMILY PRACTICE 02/13/24 documented as of this encounter
--- OUTSIDE RECORDS SUMMARY | 2024-06-10 15:20 | XMS_ITS | Data Portability ---
Author Organization [place] [facility], [facility] Address [address] [place] [address] Care Team Providers Care Brim Plater Name Role Phone DEBI MATOS Primary Care [...] For Internal Use Only, Do Not Delete/merge, [id number] 13:50:00 home health referral - [facility] referral for home PTDx: Abnormal GAIT, Right knee arthropl asty, Left foot DJD, pain in limbGAIT training , safety/a ssessmen t, DME teaching , educatio n.Start 2 weeks 3x/week and will reassess at follow-u p visit in 2 weeks.SO C: 10/05 or Emir knowles, LEONORA AACFASAO [facility] ip-Train ed Foot and Ankle SurgeonA O/AAFAO Core FacultyO ffice: [phone] le: [phone]-charleen il: [email or web address] 2014 015 louie [facility], [address], [place], [address], 5 08:43:53 Procedures None recorded . Surgeries None recorded . Imaging XR, foot, 3 or more view 03/20/ 2023 03/20/2 023 [email or web address] In-House Results, For Internal Use Only, Do Not Delete/merge, [id number] 12:05:27 x-ray, foot, 3 views 2014 015 [email or web address] In-House Results, For Internal Use Only, Do Not Delete/merge, [id number] 5 18:48:02 Medication Orders None recorded . Patient TargetsNo targets recorded. Patient Instructions Encounter Date Encounter Id Patient Instructions Last Modified By Organization Details Last Modified Time 10/04/2014 [id number] Corticosteroid injection. Discussed operative option of arthrodesis to the great toe joint. F/U with me in 2 weeks for re-evaluation. [facility] referral for balance issues. [email or web address] Not available 10/04/2014 18:45:02 06/10/2022 [id number] heel pain instructions Not available 06/10/2022 17:26:14 [...] and concerns. Not available 06/10/2022 21:01:50 07/08/2022 [id number] -Dressed the lesion with betadine and a band-aid. -Advised to continue to WBAT in supportive shoes, attend PT, complete the HEP, and wear the night splint. -Recommended urea cream for keratoderma prophylaxis. -Addressed all of the patient's questions and concerns. Not available 07/08/2022 15:35:21 Reason for Referral Home Health Referral for Abn ormal gait [facility] referral for home PTDx: Abnormal GAIT, Right knee arthroplasty, Left foot DJD, pain in limbGAIT training, safety/assessment, DME teaching, education.Start 2 weeks 3x/week and will reassess at follow-up visit in 2 weeks.SOC: 10/05 or Emir galindo DPM AACFASAO Fellowship-Trained Foot and Ankle SurgeonGARRETT/HOOD Core FacultyOffice: [phone]: [phone]-mail: [email or web address] Referring Physician: Emir Curry Podiatry, Encounter Date: [...] For Internal Use Only, Do Not Delete/merge, [id number] 06/10/2022 21:02:54 Result Notes None recorded. Problems Name Problem SNOMED Code Status Onset Date Resolution Date Notes Provider Name and Address Organization Details Recorded Time Tremor 97956833 Active 2022 Latesha Workman [facility] [place] 3 17:02:46 Acquired hallux rigidus 4925595 Active Emir Curry, DPM [address], [address] , [facility] 5 18:48:02 Sesamoiditis 96102736 Active Emir Curry DPDeonte [address], [address] , [facility] 5 18:48:02 Abnormal gait 55362201 Active Emir Curry, DPM [address], [address] , [facility] 5 18:48:02 Problem Notes None recorded. Procedures Surgical History Date Name Laterality Status Provider Name and Address Organization Details Recorded Time 07/09/19 23 Keratoma Debridement Size Lesion < 0.5CM completed Narendra Hannon, LEONORA [address] [place] [address], [address], [facility] 07/08/2022 13:55:47 06/11/19 23 Injection Fascia/Tendon/l igament completed Narendra Hannon DPM [address] [place] [address], [address], [facility] [place] 06/10/2022 17:20:10 06/11/19 23 Night Splint completed Narendra Hannon DPDeonte [address] [place] [address], [address], [facility] [place] 06/10/2022 17:21:21 06/11/19 23 Keratoma Debridement Size Lesion < 0.5CM completed Narendra Hannon DPM [address] [place] [address], [address], [facility] [place] 06/10/2022 17:20:51 10/05/19 15 Injection Small Joint/Bursae completed Emir Curry DPM [address] [place] [address], [address], [facility] [place] 10/04/2014 18:45:02 Knee Surgery completed Mykel Swain [facility] [place] 10/04/2014 15:15:04 excision of bunion completed Latesha Workman [facility] [place] 06/10/2022 16:53:36 Imaging Results Imaging Date Name Status LastModified by Organiz ation Details LastModified Time 06/10/2022 XR, foot, 3 or more view completed [email or web address] Results For Internal Use Only, Do Not Delete/merge, [id number] 06/10/2022 21:02:54 Procedure Notes None recorded. Medical [...] [degF] 142 mm[Hg] 76 mm[Hg] Lorie Swain [place] [facility] 10/04/2014 15:15:04 Date Recorded Body temperature Provider Name a nd Address Organization Details Last Updated DateTime 06/10/2022 97.6 [degF] Latesha Workman [facility] 06/10/2022 16:48:04 Date Recorded Body height Body mass index (BMI) Body weight Provider Name and Address Organization Details Last Updated DateTime 07/08/2022 162.56 cm 39.5 kg/m2 115611.25 g Teresa Mack [facility] 07/08/2022 13:40:42 Social History Question Answer Notes LastModified by Organizat ion Details LastModified Time Tobacco Smoking Status Never Smoker Mykel delaney [facility] 10/04/2014 15:15:04 [...] Y Artificial Joints N Thyroid Problems N Lung Disease N Blood Clots Y Pacemaker N Anemia N Edema N Back [...] Y Rheumatoid Arthritis N Pulmonary Embolism N Foot Deformity N Fibromyalgia N Dialysis N Hypertension Y Osteoporosis N Kidney Disease N Gynecological HistoryNo gynecological history recorded. Obstetrics History GPAL:G 0 P 0 0 0 0 Past Encounters Encounter ID Performer Location Encounter Start Date Encounter Closed Date Diagnosis/Indication Diagnosis SNOMED-CT Code Diagnosis ICD10 Code Diagnosis Note [id number] Mykel Swain [facility] 1660 [id number] [facility] [address] [place] [address] 10/04/2014 14:06:36 10/04/2014 15:34:19 Acquired hallux rigidus 3482519 Sesamoiditis 80433519 Abnormal gait 06074902 [id number] Narendra Hannon DPM [place] [address] [facility] [id number] [address] [facility] [id number] 06/10/2022 16:18:34 06/10/2022 17:34:47 Plantar fasciitis 777983959 M72.2 {{Improvin g worsenin g* same}} , {{Left* Ri ght Bilate ral}} Equinus co ntracture of the ankle 602614957 M24.573 Hammer toe 228494348 M20 .41 M20.42 Hammertoe deformitie s of {{Right Le ft Bilater al*}} Callosity 243208011 L84 Dry skin 40250565 L85.3 Squamous c ell carcinoma of skin 414052280 C44.92 Patient undergoing excision of lesion June 24 [id number] Narendra Hannon DPM [place] [address] [place] [address] 07/08/2022 13:37:08 07/08/2022 14:01:07 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 B/L medial hallux and LT submet 1 Plantar fasciitis 518739 003 M72.2 {{Improvin g* worseni ng same}} , {{Left* Ri ght Bilate ral}} Equinus co ntracture of the ankle 204417559 M24.573 Hammer toe 861506708 M20 .41 M20.42 Hammertoe deformitie s of {{Right Le ft Bilater al*}} Callosity 783509076 L84 Dry skin 78683902 L85.3 Squamous c ell carcinoma of skin 890841893 C44.92 Patient undergoing excision of lesion June 24 Health Concerns Section Related Observation LastModified by Organization Detai ls LastModified Time None Recorded Concern Status LastModified by Organization Details LastModified Time None Recorded Advance Directives Directive None Recorded Payers Encounter Date Sequence Insurance Name Policy Number Policy Schilling Covered Member ID Schilling Member ID Guarantor Name 10/04/2014 1 [place] Silvana Hare [id number] Silvana Hare 10/04/2014 2 [facility] CLAIMS - PLAN KT (MEDICARE SUPPLEMENT) Silvana Hare [id number] Silvana Hare 06/10/2022 1 [place] Silvana Hare [id number] Silvana Hare 06/10/2022 2 [facility] CLAIMS - PLAN KT (MEDICARE SUPPLEMENT) Silvana [place] [id number] Silvana Hare 07/08/2022 1 [place] Silvana Hare [id number] Silvana Haer 07/08/2022 2 [facility] CLAIMS - PLAN KT (MEDICARE SUPPLEMENT) Silvana Riverok [id number] Silvana Hare Notes Date Note Type Note [...] toe. Pain: 1-08/31. Narendra Hannon, LEONORA [address] [address], [place], [address], [facility] 06/10/2022 21:03:19 07/08/2022 [...] improvements. Pain: 07/01. Narendra Hannon, LEONORA [address], [address], [facility] 07/08/2022 15:36:45 OBGyn Episode No OBEpisode recorded.
--- OUTSIDE RECORDS SUMMARY | 2024-06-10 15:20 | XMS_ITS | Data Portability ---
Author Organization [facility] Address [address] [place] [id number] Care Team Providers Care Energy Management Specialist Name Role Phone DEBI MATOS Primary Care Provider DEBI MATOS Referring Provider [phone] DEBI MATOS Primary Care Provider Assessment No assessment recorded. Plan of Treatment Reminders Order Date Submit Date Provider Last Modified By Organization Details Last Modified Time Details Appointments None recorded. Lab None recorded. Referral pulmonologi st referral 2023 024 ANTHONY Greco MD, [address], [address], [place], [address], 4 15:10:39 Procedures None recorded. Surgeries None recorded. Imaging electrocard iogram 2023 024 In-House Results, For Internal Use Only, Do Not Delete/merge, [id number] 4 10:41:32 PET, heart 2023 024 gayle Wallace MD ([facility]), [address], [address], [place], [address], 4 10:09:08 electrocard iogram 2023 024 In-House Results, For Internal Use Only, Do Not Delete/merge, [id number] 4 20:40:15 US, echocardiog florian, transthorac ic, complete, w/ color flow 2022 023 [facility], [address] [place] [address] , [place], [address], 09:37:29 event monitor - 48 hour holter 2022 023 [facility], RAY, [address], [address], [place], [address], 09:37:11 US, duplex, carotid artery 2022 023 [facility], [address] [place] [address] , [place], [address], 09:36:51 Medication Orders losartan 25 mg tablet 2023 024 ANTHONY [id number] [place] [facility], [address], [place], [address], 10:41:34 Patient TargetsNo targets recorded. Patient Instructions Encounter Date Encounter Id Patient Instructions Last Modified By Organization Details Last Modified Time 08/28/2022 [id number] When You Want to Lose Weight: Care Instructions Not available 08/28/2022 13:37:59 dehydration: car e instructions Not available 08/28/2022 13:38:00 10/30/2022 [id number] When You Want to Lose Weight: Care Instructions Not available 10/30/2022 13:34:47 dehydration: car e instructions Not available 10/30/2022 13:34:47 06/12/2023 [id number] fainting: care instructions Not available 06/12/2023 20:40:15 When You Want to Lose Weight: Care Instructions Not available 06/12/2023 20:40:15 dehydration: car e instructions Not available 06/12/2023 20:40:15 07/28/2023 [id number] When You Want to Lose Weight: Care Instructions Not available 07/28/2023 10:41:32 high cholesterol : care instructions Not available 07/28/2023 10:41:32 fainting: care instructions Not available 07/28/2023 10:41:32 dehydration: car e instructions Not available 07/28/2023 10:41:32 10/30/2023 [id number] When You Want to Lose Weight: Care Instructions jt Not available 10/30/2023 13:24:03 high cholesterol : care instructions jt Not available 10/30/2023 13:24:03 Reason for Referral [employer] Referral for O bstructive sleep apnea of adult Referring Physician: Charly [facility], Cardiology, Encounter Date: 07/28/2023 Results Created Date Observation Date Name Description Value Unit Range Abnormal Flag Note LastModifiedBy Organization Detail LastModifiedTime 09/12/1909/03/2022 event monit or No observ ation record ed. [facility], [place], [place], [address], 09/15/2022 14:23:32 10/24/19 23 08/16/2022 XR, chest , 1 view No observ ation record ed. Not Available 2022 15:49:28 10/24/19 23 08/16/2022 CT, head, w/o contr ast No observ ation record ed. [email or web address] Not Available 2022 15:50:38 10/29/19 23 10/28/2022 US, echoc ardio gram, trans thora cic, compl ete, w/ color flow No observ ation record ed. Radiology [address] [place], [place], [address], 10/29/2022 07:53:37 10/30/1910/28/2022 US, doni araujo id arter y No observ ation record ed. Radiology [address] [place] [place], [place], [address], 11/01/2022 12:15:47 06/11/19 24 04/29/2023 US, echoc [...] For Internal Use Only, Do Not Delete/merge, [id number] 06/12/2023 12:19:51 06/12/19 elect rocar diogr am No observ ation record ed. Not Available 2023 12:24:06 07/10/19 24 07/08/2023 PET, heart No observ ation record ed. Charly Wallace MD ([facility]) [address], [place], [address], 07/27/2023 13:20:25 07/25/19 24 07/18/2023 , echo ardio gram No observ ation record ed. Not Available 2023 14:36:09 07/25/19 24 07/16/2023 elect rocar diogr am No observ ation record ed. Not Available 2023 14:38:21 07/28/19 24 elect rocar diogr am No observ ation record ed. In-House Results For Internal Use Only, Do Not Delete/merge, [id number] 07/28/2023 10:35:22 07/28/19 24 elect rocar diogr am No observ ation record ed. Not Available 2023 10:34:36 Result Notes None recorded. Problems Name Problem SNOMED Code Status Onset Date Resolution Date Notes Provider Name and Address Organization Details Recorded Time Essential hypertensi on 83484726 Active 2017 Anaya [place]oles[place], [place] - [facility] 2 14:12:26 Hyperlipid emia 22958825 Active 2017 Anaya Davis [place], [place] - [facility] 2 14:12:26 Syncope 417584125 Active 2017 Anaya Boles[place], [place] - [facility] 2 14:12:26 Takotsubo cardiomyop athy 038339472 Active 2017 Anaya Boles[place], [place] - [facility] 2 14:12:26 Intracrani al meningioma 300260084 Active 2018 s/p craniotomy Anaya Davis [place], [place] - [facility] 2 14:12:26 Seizure 98554628 Active 2018 Anaya Davis [place], [place] - [...] 10:40:21 Cholecystectomy completed Martha Lopes [place] - [facility] 12/19/2017 10:40:25 HEENT Surgery completed Martha Lopes [facility] 12/23/2017 16:03:39 Imaging Results Imaging Date Name Status LastModified by Organization Details LastModified Time 09/03/2022 event monitor completed [facility] Specialist, [address], [place], [address], 09/15/2022 14:23:32 08/16/2022 XR, chest, 1 view completed Informa tion not available 10/23/2022 15:49:28 08/16/2022 CT, head, w/o contrast completed Information not available 10/23/2022 15:50:38 10/28/2022 US, echocardiogram, transthoracic, complete, w/ color flow completed Radiology [address] [place], [address], 10/29/2022 07:53:37 10/28/2022 US, duplex, carotid artery completed Radiology [address] , [place], [address], 11/01/2022 12:15:47 04/29/2023 US, echocardiogram completed Inform ation not available 06/11/2023 09:25:53 06/11/2023 XR, chest, 1 view completed Informa tion not available 06/11/2023 09:26:50 04/28/2023 MRI, brain, w/o contrast completed Information not available 06/11/2023 09:29:27 04/28/2023 CT, head, w/o contrast completed Information not available 06/11/2023 09:30:30 06/12/2023 electrocardiogram completed In-Hous e Results For Internal Use Only, Do Not Delete/merge, [id number] 06/12/2023 12:19:51 06/12/2023 electrocardiogram completed Informa tion not available 06/12/2023 12:24:06 07/08/2023 PET, heart completed Charly Wallace MD ([facility]) [address] [place] [address], [place], [address], 07/27/2023 13:20:25 07/18/2023 US, echocardiogram completed Inform ation not available 07/25/2023 14:36:09 07/16/2023 electrocardiogram completed Informa tion not available 07/25/2023 14:38:21 07/28/2023 electrocardiogram completed In-Hous e Results For Internal Use Only, Do Not Delete/merge, [id number] 07/28/2023 10:35:22 07/28/2023 electrocardiogram completed Informa tion not available 07/28/2023 10:34:36 Procedure Notes None recorded. Medical Equipment None Reported. Allergies Allergen ID Allergen Name Allergen Category Reaction Reaction Severity Criticality Documentation Date Start Date Code Code System Note Provider Name and Address Organization Details Recorded Time 93736 Cipro medicatio n Not available Not available Not available 12/19/201787105 3 RxNorm Anaya Cannon [place], [place] - [facility] 14:16:18 [...] mm[Hg] 117 mm[Hg] 71 mm[Hg] Not Available Pending sale to [facility] 3 10:55:06 Date Recorded Body height Respiratory rate Body mass index (BMI) Body weight Heart rate Oxygen saturation Oxygen saturation in Arterial blood by Pulse oximetry Systolic blood pressure Diastolic blood pressure Provider Name and Address Organization Details Last Updated DateTime 3 162.56 cm 16 /min 41.2 kg/m2 382333. 17 g 72 /min 91 % 91 % 118 mm[Hg] 77 mm[Hg] Teresa Pratt [facility] 3 13:25:12 Date Recorded Heart rate Systolic blood pressure Diastolic blood pressure Provider Name and Address Organization Details Last Updated DateTime 08/30/2022 78 /min 117 mm[Hg] 71 mm[Hg] Not Available [facility] 08/30/2022 15:27:01 Date Recorded Heart rate Systolic [...] mm[Hg] 149 mm[Hg] 83 mm[Hg] Not Available [facility] 3 10:07:05 Date Recorded Heart rate Heart rate Systolic blood pressure Diastolic blood pressure Systolic blood pressure Diastolic blood pressure Provider Name and Address Organization Details Last Updated DateTime 3 84 /min 84 /min 149 mm[Hg] 83 mm[Hg] 149 mm[Hg] 83 mm[Hg] Not Available [facility] 3 12:33:05 Date Recorded Heart rate Heart rate Systolic blood pressure Diastolic blood pressure Systolic blood pressure Diastolic blood pressure Provider Name and Address Organization Details Last Updated DateTime 3 82 /min 82 /min 133 mm[Hg] 80 mm[Hg] 133 mm[Hg] 80 mm[Hg] Not Available [facility] 3 12:34:07 Date Recorded Heart rate Heart rate Systolic blood pressure Diastolic blood pressure Systolic blood pressure Diastolic blood pressure Provider Name and Address Organization Details Last Updated DateTime 3 79 /min 79 /min 116 mm[Hg] 80 mm[Hg] 116 mm[Hg] 80 mm[Hg] Not Available [facility] 3 12:02:03 Date Recorded Body height Heart rate Oxygen saturation Oxygen saturation in Arterial blood by Pulse oximetry Respiratory rate Body mass index (BMI) Body weight Systolic blood pressure Diastolic blood pressure Provider Name and Address Organization Details Last Updated DateTime 3 162.56 cm 77 /min 94 % 94 % 16 /min 39.5 kg/m2 457900. 25 g 114 mm[Hg] 76 mm[Hg] Anaya [...] /min 144 mm[Hg] 83 mm[Hg] Not Available [facility] 11/27/2022 12:15:07 Date Recorded Heart rate Systolic blood pressure Diastolic blood pressure Provider Name and Address Organization Details Last Updated DateTime 11/29/2022 77 /min 134 mm[Hg] 83 mm[Hg] Not Available [facility] 11/29/2022 12:35:02 Date Recorded Heart rate Systolic blood pressure Diastolic blood pressure Provider Name and Address Organization Details Last Updated DateTime 11/30/2022 80 /min 128 mm[Hg] 78 mm[Hg] Not Available [facility] 11/30/2022 11:50:06 Date Recorded Heart rate Systolic blood pressure Diastolic blood pressure Provider Name and Address Organization Details Last Updated DateTime 12/01/2022 81 /min 153 mm[Hg] 82 mm[Hg] Not Available [facility] 12/02/2022 13:32:04 Date Recorded Heart rate Systolic blood pressure Diastolic blood pressure Provider Name and Address Organization Details Last Updated DateTime 12/02/2022 72 /min 128 mm[Hg] 79 mm[Hg] Not Available [facility] 12/02/2022 13:32:06 Date Recorded Heart rate Systolic blood pressure Diastolic blood pressure Provider Name and Address Organization Details Last Updated DateTime 12/03/2022 75 /min 128 mm[Hg] 79 mm[Hg] Not Available [facility] 12/03/2022 15:28:02 Date Recorded Heart rate Systolic blood pressure Diastolic blood pressure Provider Name and Address Organization Details Last Updated DateTime 12/05/2022 89 /min 122 mm[Hg] 77 mm[Hg] Not Available [facility] 12/05/2022 11:33:06 Date Recorded Heart rate Heart rate Systolic blood pressure Diastolic blood pressure Systolic blood pressure Diastolic blood pressure Provider Name and Address Organization Details Last Updated DateTime 82 /min 81 /min 151 mm[Hg] 79 mm[Hg] 125 mm[Hg] 77 mm[Hg] Not Available [facility] 11:10:07 Date Recorded Heart rate Heart rate [...] /min 133 mm[Hg] 76 mm[Hg] Not Available [facility] 12/09/2022 12:31:03 Date Recorded Heart rate Systolic [...] /min 138 mm[Hg] 80 mm[Hg] Not Available [facility] 12/13/2022 11:36:05 Date Recorded Heart rate Systolic blood pressure Diastolic blood pressure Provider Name and Address Organization Details Last Updated DateTime 12/14/2022 87 /min 154 mm[Hg] 80 mm[Hg] Not Available [facility] 12/15/2022 11:54:07 Date Recorded Heart rate Systolic blood pressure Diastolic blood pressure Provider Name and Address Organization Details Last Updated DateTime 12/15/2022 82 /min 131 mm[Hg] 75 mm[Hg] Not Available [facility] 12/15/2022 11:55:06 Date Recorded Heart rate Heart [...] /min 111 mm[Hg] 68 mm[Hg] Not Available [facility] 12/31/2022 10:51:04 Date Recorded Heart rate Systolic blood pressure Diastolic blood pressure Provider Name and Address Organization Details Last Updated DateTime 01/01/2023 84 /min 115 mm[Hg] 70 mm[Hg] Not Available [facility] 01/01/2023 11:51:05 Date Recorded Heart rate Systolic blood pressure Diastolic blood pressure Provider Name and Address Organization Details Last Updated DateTime 01/03/2023 79 /min 126 mm[Hg] 77 mm[Hg] Not Available [facility] 01/03/2023 12:18:08 Date Recorded Heart rate Systolic blood pressure Diastolic blood pressure Provider Name and Address Organization Details Last Updated DateTime 01/04/2023 82 /min 126 mm[Hg] 77 mm[Hg] Not Available [facility] 01/04/2023 12:00:02 Date Recorded Heart rate Heart rate Systolic blood pressure Diastolic blood pressure Systolic blood pressure Diastolic blood pressure Provider Name and Address Organization Details Last Updated DateTime 85 /min 87 /min 136 mm[Hg] 97 mm[Hg] 121 mm[Hg] 75 mm[Hg] Not Available [facility] 11:26:06 Date Recorded Heart rate Systolic blood pressure Diastolic blood pressure Provider Name and Address Organization Details Last Updated DateTime 01/08/2023 72 /min 121 mm[Hg] 75 mm[Hg] Not Available [facility] 01/08/2023 13:06:04 Date Recorded Heart rate Heart rate Systolic blood pressure Diastolic blood pressure Systolic blood pressure Diastolic blood pressure Provider Name and Address Organization Details Last Updated DateTime 81 /min 74 /min 141 mm[Hg] 93 mm[Hg] 125 mm[Hg] 71 mm[Hg] Not Available [facility] 13:54:01 Date Recorded Heart rate Systolic blood pressure Diastolic blood pressure Provider Name and Address Organization Details Last Updated DateTime 01/10/2023 75 /min 119 mm[Hg] 65 mm[Hg] Not Available [facility] 01/10/2023 12:34:07 Date Recorded Heart rate Systolic blood pressure Diastolic blood pressure Provider Name and Address Organization Details Last Updated DateTime 01/12/2023 77 /min 114 mm[Hg] 63 mm[Hg] Not Available [facility] 01/12/2023 15:30:03 Date Recorded Heart rate Systolic blood pressure Diastolic blood pressure Provider Name and Address Organization Details Last Updated DateTime 01/13/2023 73 /min 112 mm[Hg] 47 mm[Hg] Not Available [facility] 01/13/2023 13:18:02 Date Recorded Heart rate Systolic blood pressure Diastolic blood pressure Provider Name and Address Organization Details Last Updated DateTime 01/14/2023 74 /min 123 mm[Hg] 71 mm[Hg] Not Available [facility] 01/14/2023 14:02:04 Date Recorded Heart rate Systolic blood pressure Diastolic blood pressure Provider Name and Address Organization Details Last Updated DateTime 01/16/2023 81 /min 110 mm[Hg] 66 mm[Hg] Not Available [facility] 01/16/2023 11:03:02 Date Recorded Heart rate Systolic blood pressure Diastolic blood pressure Provider Name and Address Organization Details Last Updated DateTime 01/19/2023 87 /min 125 mm[Hg] 80 mm[Hg] Not Available [facility] 01/19/2023 10:28:02 Date Recorded Heart rate Systolic blood pressure Diastolic blood pressure Provider Name and Address Organization Details Last Updated DateTime 01/18/2023 84 /min 150 mm[Hg] 68 mm[Hg] Not Available [facility] 01/19/2023 10:28:06 Date Recorded Heart rate Systolic blood pressure Diastolic blood pressure Provider Name and Address Organization Details Last Updated DateTime 01/21/2023 82 /min 143 mm[Hg] 77 mm[Hg] Not Available [facility] 01/21/2023 10:44:02 Date Recorded Heart rate Systolic blood pressure Diastolic blood pressure Provider Name and Address Organization Details Last Updated DateTime 01/20/2023 73 /min 119 mm[Hg] 74 mm[Hg] Not Available [facility] 01/21/2023 10:44:06 Date Recorded Heart rate Systolic blood pressure Diastolic blood pressure Provider Name and Address Organization Details Last Updated DateTime 01/22/2023 82 /min 113 mm[Hg] 70 mm[Hg] Not Available [facility] 01/22/2023 12:50:05 Date Recorded Heart rate Systolic blood pressure Diastolic blood pressure Provider Name and Address Organization Details Last Updated DateTime 01/23/2023 81 /min 115 mm[Hg] 76 mm[Hg] Not Available [facility] 01/23/2023 12:51:04 Date Recorded Heart rate Systolic blood pressure Diastolic blood pressure Provider Name and Address Organization Details Last Updated DateTime 01/24/2023 72 /min 116 mm[Hg] 64 mm[Hg] Not Available [facility] 01/24/2023 15:15:02 Date Recorded Heart rate Systolic blood pressure Diastolic blood pressure Provider Name and Address Organization Details Last Updated DateTime 01/25/2023 81 /min 110 mm[Hg] 61 mm[Hg] Not Available [facility] 01/25/2023 13:07:06 Date Recorded Heart rate Systolic blood pressure Diastolic blood pressure Provider Name and Address Organization Details Last Updated DateTime 01/26/2023 86 /min 117 mm[Hg] 64 mm[Hg] Not Available [facility] 01/26/2023 13:30:07 Date Recorded Heart rate Systolic blood pressure Diastolic blood pressure Provider Name and Address Organization Details Last Updated DateTime 01/27/2023 84 /min 113 mm[Hg] 57 mm[Hg] Not Available [facility] 01/27/2023 14:24:05 Date Recorded Heart rate Systolic blood pressure Diastolic blood pressure Provider Name and Address Organization Details Last Updated DateTime 01/29/2023 76 /min 113 mm[Hg] 57 mm[Hg] Not Available [facility] 01/29/2023 11:56:07 Date Recorded Heart rate Systolic blood pressure Diastolic blood pressure Provider Name and Address Organization Details Last Updated DateTime 01/30/2023 70 /min 128 mm[Hg] 69 mm[Hg] Not Available [facility] 02/02/2023 19:41:01 Date Recorded Heart rate Heart rate Systolic blood pressure Diastolic blood pressure Systolic blood pressure Diastolic blood pressure Provider Name and Address Organization Details Last Updated DateTime 70 /min 71 /min 140 mm[Hg] 70 mm[Hg] 150 mm[Hg] 74 mm[Hg] Not Available [facility] 19:41:02 Date Recorded Heart rate Systolic blood [...] /min 127 mm[Hg] 83 mm[Hg] Not Available [facility] 02/28/2023 11:18:02 Date Recorded Heart rate Systolic [...] /min 126 mm[Hg] 82 mm[Hg] Not Available [facility] 03/03/2023 11:55:02 Date Recorded Heart rate Systolic blood pressure Diastolic blood pressure Provider Name and Address Organization Details Last Updated DateTime 03/02/2023 86 /min 127 mm[Hg] 84 mm[Hg] Not Available [facility] 03/03/2023 11:55:03 Date Recorded Heart rate Systolic blood pressure Diastolic blood pressure Provider Name and Address Organization Details Last Updated DateTime 03/04/2023 87 /min 133 mm[Hg] 82 mm[Hg] Not Available [facility] 04/07/2023 10:49:03 Date Recorded Heart rate Systolic blood pressure Diastolic blood pressure Provider Name and Address Organization Details Last Updated DateTime 03/05/2023 85 /min 115 mm[Hg] 68 mm[Hg] Not Available [facility] 04/07/2023 10:49:05 Date Recorded Heart rate Systolic blood pressure Diastolic blood pressure Provider Name and Address Organization Details Last Updated DateTime 03/10/2023 82 /min 135 mm[Hg] 84 mm[Hg] Not Available [facility] 04/07/2023 10:50:02 Date Recorded Heart rate Systolic blood pressure Diastolic blood pressure Provider Name and Address Organization Details Last Updated DateTime 03/09/2023 84 /min 116 mm[Hg] 80 mm[Hg] Not Available [facility] 04/07/2023 10:50:05 Date Recorded Heart rate Heart rate Systolic blood pressure Diastolic blood pressure Systolic blood pressure Diastolic blood pressure Provider Name and Address Organization Details Last Updated DateTime 81 /min 80 /min 152 mm[Hg] 86 mm[Hg] 124 mm[Hg] 82 mm[Hg] Not Available [facility] 10:50:06 Date Recorded Heart rate Systolic blood [...] /min 126 mm[Hg] 85 mm[Hg] Not Available [facility] 04/07/2023 10:51:02 Date Recorded Heart rate Systolic blood pressure Diastolic blood pressure Provider Name and Address Organization Details Last Updated DateTime 03/12/2023 84 /min 129 mm[Hg] 84 mm[Hg] Not Available [facility] 04/07/2023 10:51:04 Date Recorded Heart rate Heart [...] /min 126 mm[Hg] 75 mm[Hg] Not Available [facility] 04/07/2023 10:51:07 Date Recorded Heart rate Systolic blood pressure Diastolic blood pressure Provider Name and Address Organization Details Last Updated DateTime 03/20/2023 83 /min 139 mm[Hg] 78 mm[Hg] Not Available [facility] 04/07/2023 10:52:04 Date Recorded Heart rate Systolic blood pressure Diastolic blood pressure Provider Name and Address Organization Details Last Updated DateTime 03/19/2023 84 /min 133 mm[Hg] 85 mm[Hg] Not Available [facility] 04/07/2023 10:52:06 Date Recorded Heart rate Heart [...] /min 115 mm[Hg] 59 mm[Hg] Not Available [facility] 06/09/2023 10:26:04 Date Recorded Heart rate Systolic blood pressure Diastolic blood pressure Provider Name and Address Organization Details Last Updated DateTime 05/08/2023 73 /min 133 mm[Hg] 75 mm[Hg] Not Available [facility] 06/10/2023 12:56:05 Date Recorded Heart rate Systolic blood pressure Diastolic blood pressure Provider Name and Address Organization Details Last Updated DateTime 05/09/2023 72 /min 133 mm[Hg] 62 mm[Hg] Not Available [facility] 06/10/2023 12:56:09 Date Recorded Heart rate Systolic blood pressure Diastolic blood pressure Provider Name and Address Organization Details Last Updated DateTime 05/10/2023 75 /min 138 mm[Hg] 72 mm[Hg] Not Available [facility] 06/10/2023 12:58:03 Date Recorded Heart rate Heart rate Systolic blood pressure Diastolic blood pressure Systolic blood pressure Diastolic blood pressure Provider Name and Address Organization Details Last Updated DateTime 80 /min 85 /min 150 mm[Hg] 79 mm[Hg] 150 mm[Hg] 68 mm[Hg] Not Available [facility] 13:01:03 Date Recorded Heart rate Systolic blood pressure Diastolic blood pressure Provider Name and Address Organization Details Last Updated DateTime 05/13/2023 83 /min 130 mm[Hg] 65 mm[Hg] Not Available [facility] 06/10/2023 13:01:02 Date Recorded Heart rate Systolic blood pressure Diastolic blood pressure Provider Name and Address Organization Details Last Updated DateTime 05/14/2023 74 /min 136 mm[Hg] 71 mm[Hg] Not Available [facility] 06/10/2023 13:03:04 Date Recorded Heart rate Systolic blood pressure Diastolic blood pressure Provider Name and Address Organization Details Last Updated DateTime 05/15/2023 73 /min 134 mm[Hg] 72 mm[Hg] Not Available [facility] 06/10/2023 13:03:05 Date Recorded Heart rate Systolic [...] 4 162.56 cm 16 /min 41.2 kg/m2 906059. 17 g 70 /min 93 % 93 [...] /min 113 mm[Hg] 80 mm[Hg] Not Available [facility] 06/24/2023 12:15:08 Date Recorded Heart rate Systolic blood pressure Diastolic blood pressure Provider Name and Address Organization Details Last Updated DateTime 06/26/2023 70 /min 140 mm[Hg] 84 mm[Hg] Not Available [facility] 06/26/2023 13:01:06 Date Recorded Heart rate Heart rate Heart rate Systolic blood pressure Diastolic blood pressure Systolic blood pressure Diastolic blood pressure Systolic blood pressure Diastolic blood pressure Provider Name and Address Organization Details Last Updated DateTime 4 79 /min 78 /min 79 /min 142 mm[Hg] 86 mm[Hg] 175 mm[Hg] 124 mm[Hg] 135 mm[Hg] 72 mm[Hg] Not Available [facility] 4 11:55:07 Date Recorded Heart rate Heart rate Systolic blood pressure Diastolic blood pressure Systolic blood pressure Diastolic blood pressure Provider Name and Address Organization Details Last Updated DateTime 4 78 /min 77 /min 148 mm[Hg] 94 mm[Hg] 128 mm[Hg] 79 mm[Hg] Not Available [facility] 4 10:45:01 Date Recorded Heart rate Heart rate Systolic blood pressure Diastolic blood pressure Systolic blood pressure Diastolic blood pressure Provider Name and Address Organization Details Last Updated DateTime 4 71 /min 70 /min 125 mm[Hg] 105 mm[Hg] 127 mm[Hg] 67 mm[Hg] Not Available [facility] 4 12:14:10 Date Recorded Heart rate Systolic blood pressure Diastolic blood pressure Provider Name and Address Organization Details Last Updated DateTime 07/01/2023 73 /min 150 mm[Hg] 86 mm[Hg] Not Available [facility] 07/01/2023 12:14:09 Date Recorded Body height Respiratory rate Heart rate Oxygen saturation Oxygen saturation in Arterial blood by Pulse oximetry Body mass index (BMI) Body weight Systolic blood pressure Diastolic blood pressure Provider Name and Address Organization Details Last Updated DateTime 4 162.56 cm 16 /min 79 /min 93 % 93 % 40.3 kg/m2 770560. 21 g 100 mm[Hg] 66 mm[Hg] Viviana Butts [facility] 4 10:12:47 Date Recorded Body height Respiratory rate Oxygen saturation Oxygen saturation in Arterial blood by Pulse oximetry Heart rate Systolic blood pressure Diastolic blood pressure Provider Name and Address Organization Details Last Updated DateTime 4 162.56 cm 16 /min 94 % 94 % 73 /min 136 mm[Hg] 84 mm[Hg] Martha Scottandrea kilgore [place] - [facility] 4 13:09:41 Date Recorded Body mass index (BMI) Body weight Provider Name and Address Organization Details Last Updated DateTime 10/30/2023 41.2 kg/m2 495863.17 RAY Cruz [address] [place] [address],[address], [place], [address], [place] [facility] 10/30/2023 13:13:38 Social History Question Answer Notes LastModified by Organizat ion Details LastModified Time Tobacco Smoking Status Former Smoker Shari Loza rhett, [place] - [facility] 01/22/2022 16:22:20 Do You Have An Advance Directive? Yes Surrogate Decision Maker Luis Hare Information not available 04/27/2019 What Is Your Level Of Alcohol Consumption? Moderate 1-2 Glasses Of Wine Daily [email or web address] Information not available 01/22/2022 Is Blood Transfusion Acceptable In An Emergency? Yes [email or web address] Information not available 01/22/2022 What Is Your Level Of Caffeine Consumption? Moderate 1 Cup Per Day And 3 Cups Of Diet Tea Per Day Information not available 01/22/2022 What Type Of Diet Are You Following? SPECIFIC [email or web address] Information not available 01/22/2022 Do You Or Have You Ever Used E-cigarettes Or Vape? Never Used Electronic Cigarettes Information not available 01/27/2019 What Was The Date Of Your Most Recent Tobacco Screening? 10/30/2023 [email or web address] Information not available 10/30/2023 What Is Your Relationship Status? Information not available 01/22/2022 At What Age Did You Start Smoking Tobacco? 22 Information not available 01/22/2022 Do You Or Have You Ever Used Smokeless Tobacco? Never Used Smokeless Tobacco Information not available 01/27/2019 How Much Tobacco Do You Smoke? No [email or web address] Information not available 01/22/2022 Do You Use Any Illicit Or Recreational Drugs? No Information not available 01/22/2022 How Many Years Have You Smoked Tobacco? 15 [email or web address] Information not available 01/22/2022 Do You Or Have You Ever Used Any Other Forms Of Tobacco Or Nicotine? No Information not available 09/21/2020 Sex: Female Functional Status Question Answer Note LastModified by Organization D etails LastModified Time What is your exercise level? None [email or web address] Information not available 01/22/2022 Mental Status None [...] SNOMED-CT Code Diagnosis ICD10 Code Diagnosis Note [id number] Reyna Almeida [facility] - OFFICE [address] [place] [address] 12/23/2017 15:33:34 12/23/2017 16:49:48 Benign essential hypertension 9567415 I10 Patient reports occasional dizziness at home. Decrease losartan to 25mg once daily. Create BP log for follow up in six weeks. Syncope 614997336 R55 No recurrent episode. Patient was evaluated in the hospital. Managed by neurologtamera hernandes Takotsubo cardiomyopathy 066069335 I51.81 Heart catherizat ion performed on 12/03/2017 revealed minimal coronary artery disease and LVEF estimated at 35-40%. On carvedilol and furosemide . Reassess LVEF in six months. Hyperlipidemia 23346793 E78.00 On statin therapy. Electrocar diogram abnormal 335072861 R94.31 Abnormal EKG. Patient underwent heart catherizat ion which revealed minimal coronary artery disease. Cerebral meningioma 1891 [address] Hinojosa. Overweight 199801260 E66 .3 Healthy diet discussed. Advised to refrain from alcohol consumptio n. [id number] Reyna Almeida [facility] [address] [place], [place] [address] 7 02/03/2018 12:54:46 02/03/2018 13:26:53 Electrocardiogram abnormal 468705405 R94.31 Abnormal EKG. Patient underwent heart catherizat ion which revealed minimal coronary artery disease. Takotsubo cardiomyopathy 021006298 I51.81 Heart catherizat ion performed on 12/03/2017 revealed minimal coronary artery disease and LVEF estimated at 35-40%. On carvedilol and furosemide . Reassess LVEF in six months. Benign ess ential hypertension 0820838 I10 Patient reports occasional dizziness at home. Improved with decreased dose of losartan. Syncope 109482550 R55 No recurrent episode. Patient was evaluated in the hospital. Managed by neurologis t. Hyperlipidemia 66108798 E78.00 On statin therapy. Cerebral meningioma 1891 [address] Hinojosa. Overweight 477427106 E66 .3 Healthy diet discussed. Advised to refrain from alcohol consumptio n. Seizure disorder 2069433 02 G40.909 S/P seizure. Managed by Dr. Hinojosa. [id number] Charly [facility] MD [place] [id number] 7 04/03/2018 13:12:28 04/03/2018 14:28:06 Electrocardiogram abnormal 281519118 R94.31 Abnormal EKG. Patient underwent heart catherizat ion which revealed minimal coronary artery disease. Patient is currently at an acceptable risk from cardiac standpoint to undergo non-cardia c surgery. Monitor for volume overload. Patient evaluated by Dr Charly Wallace She is at acceptable risk to undergo surgery. Avoid volume overload Takotsubo cardiomyopathy 996853449 I51.81 Heart catherizat ion performed on 12/03/2017 revealed minimal coronary artery disease and LVEF estimated at 35-40%. On carvedilol and furosemide . Benign ess ential hypertension 8956988 I10 Patient reports occasional dizziness at home. Improved with decreased dose of losartan. Syncope 326096874 R55 No recurrent episode. Patient was evaluated in the hospital. Managed by neurologis t. Hyperlipidemia 97873279 E78.00 On statin therapy. Cerebral meningioma 1891 [address] Hinojosa. Patient is scheduled for surgical management of meningioma . Overweight 200879975 E66 .3 Healthy diet discussed. Advised to refrain from alcohol consumptio n. Seizure disorder 1523604 02 G40.909 S/P seizure. Managed by Dr. Hinojosa. [id number] Charly Wallace MD [facility] [address] [place] [address] [address] [place] [address] 05/05/2018 11:37:48 05/05/2018 12:12:51 Electrocardiogram abnormal 457523934 R94.31 Stable Takotsubo cardiomyopathy 040262032 I51.81 Heart catherizat ion performed on 12/03/2017 revealed minimal coronary artery disease and LVEF estimated at 35-40%. On carvedilol and furosemide . Plan echo next month Benign ess ential hypertension 7270760 I10 acceptable control blood pressure. Syncope 972349638 R55 no further syncope. Patient had a meningioma which is status post resection. Hyperlipidemia 70352165 E78.00 On statin therapy. Cerebral meningioma 1891 [address] Hinojosa. Status post surgical resection of meningioma . Overweight 212531151 E66 .3 Healthy diet discussed. Advised to refrain from alcohol consumptio n. Seizure disorder 2411228 02 G40.909 S/P seizure. Managed by Dr. Hinojosa. No further seizures status post meningioma resection. [id number] Reyna Almeida [facility] [address] [place] [address] [address] [place] [address] 01/27/2019 13:44:48 01/27/2019 15:25:14 Takotsubo cardiomyopathy 495675300 I51.81 Heart catherizat ion performed on 12/03/2017 revealed minimal coronary artery disease and LVEF estimated at 35-40%. On carvedilol and furosemide . Assess LV function with 2D echo. Electrocar diogram abnormal 406230971 R94.31 Stable Benign ess ential hypertension 9324492 I10 Acceptable control blood pressure. Syncope 614735641 R55 no further syncope. Patient had a meningioma which is status post resection. Patient reports recent dizziness while changing position.W e will decrease carvedilol to 1/2 tablet twice daily.Plan 2D echo to assess LV function.A dvised patient to increase hydration as well. Follow up with blood pressure log. Hyperlipidemia 90223505 E78.00 On statin therapy. Cerebral meningioma 1891 [address] Hinojosa. Status post surgical resection of meningioma . Overweight 581095155 E66 .3 Healthy diet discussed. Advised to refrain from alcohol consumptio n. She has gained 17lbs since last visit. Seizure disorder 3375421 02 G40.909 S/P seizure. Managed by Dr. Hinojosa. No further seizures status post meningioma resection. [id number] Charly Wallace MD [facility] - [facility]ICE [address] [facility] [place] [address] 04/27/2019 11:06:55 04/27/2019 11:36:59 Electrocardiogram abnormal 844396478 R94.31 Not repeated at today's visit. Takotsubo cardiomyopathy 198577584 I51.81 Heart catherizat ion performed on 12/03/2017 revealed minimal coronary artery disease and LVEF estimated at 35-40%. On carvedilol and furosemide . Most recent echocardio gram performed February 2019 revealed preserved LV function. Estimated ejection fraction 55-60 % Benign ess ential hypertension 3632689 I10 Borderline control of blood pressure. Blood pressure better controlled at home. Continue current meds.Kitty nt reports blood pressure 130/80 or less at home. Managed by primary physician. Syncope 716226185 R55 no further syncope. Hyperlipidemia 18469577 E78.00 On statin therapy. Cerebral meningioma 1891 [address] Hinojosa. Status post surgical resection of meningioma . Overweight 105125451 E66 .3 Healthy diet discussed. Advised to refrain from alcohol consumptio n. Patient will attempt to lose weight. Seizure disorder 7042774 02 G40.909 S/P seizure. Managed by Dr. Hinojosa. No further seizures status post meningioma resection. [id number] Reyna Almeida [facility] [address] [place] [address] [address] [place] [address] 11/18/2019 12:58:51 11/18/2019 13:42:38 Essential hypertension 83950090 I10 Blood pressure elevated at today's visit.Alina ent reports acceptable control of blood pressure at home. Electrocar diogram abnormal 777890854 R94.31 Stabel/unc hanged Takotsubo cardiomyopathy 368782061 I51.81 Heart catherizat ion performed on 12/03/2017 revealed minimal coronary artery disease and LVEF estimated at 35-40%. On carvedilol and furosemide . Most recent echocardio gram performed February 2019 revealed preserved LV function. Estimated ejection fraction 55-60 %. Stable. Renew med. Syncope 734524567 R55 no further syncope. Hyperlipidemia 64182471 E78.00 On statin therapy. Cerebral meningioma 1890 [address] Hinojosa. Status post surgical resection of meningioma . Being followed up by Dr. Hinojosa. Overweight 649219090 E66 .3 Healthy diet discussed. Advised to refrain from alcohol consumptio n. Patient is unable to exercise due to orthopedic limitation s.She has modified her diet but was unable to lose weight. Seizure disorder 6159909 02 G40.909 S/P seizure. Managed by Dr. Hinojosa. No further seizures status post meningioma resection. Difficulty swallowing 28 4319396 R13.10 Reports difficulty swallowing .She is scheduled to follow up with GI. Memory impairment 761805 006 R41.3 Worsening memory impairment since meningioma resection. She will follow up with neurology regarding this. [id number] [facility] Juan Pablo [facility] [address] [place] [address] 06/20/2020 14:15:29 06/20/2020 14:56:49 Essential hypertension 34605193 I10 Acceptable control of blood pressure with current medication . Takotsubo cardiomyopathy 414433989 I51.81 Heart catherizat ion performed on 12/03/2017 revealed minimal coronary artery disease and LVEF estimated at 35-40%. On carvedilol and furosemide . Most recent echocardio gram performed February 2019 revealed preserved LV function. Estimated ejection fraction 55-60 %. Patient feeling well from cardiac standpoint .She is currently at an acceptable risk from cardiac standpoint to undergo non-cardia c surgery. Electrocar diogram abnormal 668353668 R94.31 Stable/unc hanged Syncope 083949726 R55 no further syncope. Hyperlipidemia 79588477 E78.00 On statin therapy. Cerebral meningioma 1890 [address] Hinojosa. Status post surgical resection of meningioma . Being followed up by Dr. Hinojosa. Memory impairment 970817 006 R41.3 Worsening memory impairment since meningioma resection. She will follow up with neurology regarding this. Seizure disorder 1961134 02 G40.909 S/P seizure. Managed by Dr. Hinojosa. No further seizures status post meningioma resection. Difficulty swallowing 28 6890142 R13.10 Resolved. Overweight 034793889 E66 .3 Healthy diet discussed. Advised to refrain from alcohol consumptio n. Patient is unable to exercise due to orthopedic limitation s.She has modified her diet but was unable to lose weight. Lost about 32lbs with diet. Knee pain 03341415 M25.5 69 Tentative plan for knee surgery. [id number] Charly Wallace MD [facility] - [facility]ICE [address] [place] [address] 09/21/2020 11:36:29 09/21/2020 12:26:08 Essential hypertension 40081350 I10 Patient has been taking blood pressure at home however her device failed. But has not yet been replaced. Recommend remote patient monitoring . Target blood pressure 130 over 80 or less Takotsubo cardiomyopathy 179656659 I51.81 Heart catherizat ion performed on 12/03/2017 revealed minimal coronary artery disease and LVEF estimated at 35-40%. On carvedilol and furosemide . Most recent echocardio gram performed February 2019 revealed preserved LV function. Estimated ejection fraction 55-60 %.Stable Electrocar diogram abnormal 764023732 R94.31 Stable/unc hanged Syncope 301964573 R55 no further syncope. Hyperlipidemia 34444441 E78.00 On statin therapy. Cerebral meningioma 1891 [address] Hinojosa. Status post surgical resection of meningioma . Being followed up by Dr. Hinojosa. Memory impairment 126619 006 R41.3 Worsening memory impairment since meningioma resection. She will follow up with neurology regarding this. Seizure disorder 4396933 02 G40.909 S/P seizure. Managed by Dr. Hinojosa. No further seizures status post meningioma resection. Overweight 093188228 E66 .3 Healthy diet discussed. Advised to refrain from alcohol consumptio n.Discussi on regarding weight loss Knee pain 83554101 M25.5 69 s/p knee surgery Difficulty swallowing 28 2086772 R13.10 Resolved. [id number] Charly Wallace MD [facility] [address] [place] [address] [address] [place] [address] 06/11/2021 11:23:58 06/11/2021 11:54:42 Hyperlipidemia 65142049 E78.00 On statin therapy.Ma naged by primary Syncope 070000901 R55 no further syncope. Takotsubo cardiomyopathy 527060376 I51.81 Heart catherizat ion performed on 12/03/2017 revealed minimal coronary artery disease and LVEF estimated at 35-40%. On carvedilol and furosemide . Most recent echocardio gram performed February 2019 revealed preserved LV function. Estimated ejection fraction 55-60 %.Stable Electrocar diogram abnormal 146126260 R94.31 Stable/unc hanged Essential hypertension 83508931 I10 Review of blood pressure reveals elevated diastolic pressure. Recommend increasing losartan to 50 mg every afternoon and 25 mg every morning. Target blood pressure 130/80 or less. Cerebral meningioma 1891 [address] Hinojosa. Status post surgical resection of meningioma . Being followed up by Dr. Hinojosa. Patient looking for Dr. Hinojosa's new office since he left his previous employer Memory impairment 827843 006 R41.3 Worsening memory impairment since meningioma resection. She will follow up with neurology regarding this. Seizure disorder 8558627 02 G40.909 S/P seizure. Managed by Dr. Hinojosa. No further seizures status post meningioma resection. Knee pain 13066965 M25.5 69 s/p knee surgery Difficulty swallowing 28 1925082 R13.10 Resolved. Morbid obesity 600365144 E66.01 Healthy diet discussed. Advised to refrain from alcohol consumptio n.Discussi on regarding weight loss [id number] RAY Guzman [facility] - [facility]ICE [address] [facility] [address] [place] [address] 10/31/2021 14:04:21 10/31/2021 14:53:56 Essential hypertension 90469790 I10 Review of blood pressure reveals suboptimal control. Last visit it was recommende d she increase losartan to 50 mg every afternoon and 25 mg every morning although patient reports she was unaware of increase. She will start increase at this time. Target blood pressure 130/80 or less. She is having issues with [facility] , will resend referral. Hyperlipidemia 72308020 E78.00 On statin therapy. Managed by primary. Syncope 696398180 R55 No further syncope. Takotsubo cardiomyopathy 188781628 I51.81 Heart catherizat ion performed on 12/03/2017 revealed minimal coronary artery disease and LVEF estimated at 35-40%. Echocardio gram performed February 2019 revealed preserved LV function. Estimated ejection fraction 55-60 %. Electrocar diogram abnormal 365126326 R94.31 Stable/unc hanged. Cerebral meningioma 1891 [address] Biggs. Status post surgical resection of meningioma . Memory impairment 246837 006 R41.3 Worsening memory impairment since meningioma resection. She will follow up with neurology regarding this. Seizure disorder 9911017 02 G40.909 S/P seizure. Managed by neuro. No further seizures status post meningioma resection. Morbid obesity 043176716 E66.01 Healthy diet discussed. Difficulty swallowing 28 2269988 R13.10 Resolved. [id number] Charly Wallace MD [facility] - OFFICE [address] [place] [address],[address] [place] [address] 01/22/2022 16:12:09 01/22/2022 16:31:24 Essential hypertension 40096461 I10 Review of blood pressures show mostly borderline but acceptable control. We will continue current meds. Hyperlipidemia 91282302 E78.00 On statin therapy. Managed by primary. Syncope 612403379 R55 No further syncope. Takotsubo cardiomyopathy 634174293 I51.81 Heart catherizat ion performed on 12/03/2017 revealed minimal coronary artery disease and LVEF estimated at 35-40%. Echocardio gram performed February 2019 revealed preserved LV function. Estimated ejection fraction 55-60 %. Electrocar diogram abnormal 986867287 R94.31 No ekg at todays visit Cerebral meningioma 1891 [address] Biggs. Status post surgical resection of meningioma . Memory impairment 894016 006 R41.3 Worsening memory impairment since meningioma resection. She will follow up with neurology regarding this. Seizure disorder 1387717 02 G40.909 S/P seizure. Managed by neuro. No further seizures status post meningioma resection. Morbid obesity 060946171 E66.01 Healthy diet discussed. Difficulty swallowing 28 7904616 R13.10 Resolved. Dehydration 81389628 E86 .0 I believe this patient is intravascu larly depleted. I have counseled her to increase her oral intake of water and decrease caffeine and alcohol [id number] RAY Guzman [facility] - OFFICE [address] [place] [address] 08/28/2022 13:08:28 08/28/2022 14:58:39 Essential hypertension 08410445 I10 Review of blood pressures show mostly borderline but acceptable control. We will continue current meds. Hyperlipidemia 58564228 E78.00 On statin therapy. Managed by primary. Takotsubo cardiomyopathy 191615590 I51.81 Heart catherizat ion performed 12/03/2017 revealed minimal coronary artery disease and LVEF estimated at 35-40%. Echocardio gram performed February 2019 revealed preserved LV function. Estimated ejection fraction 55-60%. Electrocar diogram abnormal 873155656 R94.31 No EKG at today's visit. Cerebral meningioma 1891 [address] Biggs. Status post surgical resection of meningioma . Memory impairment 210942 006 R41.3 Worsening memory impairment since meningioma resection. She will follow up with neurology regarding this. Seizure disorder 2649686 02 G40.909 S/P seizure. Managed by neuro. No further seizures status post meningioma resection. Morbid obesity 780574060 E66.01 Healthy diet discussed. Difficulty swallowing 28 8490819 R13.10 Resolved. Dehydration 96634961 E86 .0 Counseled to increase her oral intake of water and decrease caffeine and alcohol. Near syncope 268970854 R 55 Patient with frequent lightheade dness and one episode of near syncope. Currently undergoing neurologic evaluation . Recent blood work unremarkab le. Plan carotid US, echo and 48 hour holter monitor. Additional ly recommend patient increase hydration. [id number] RAY Guzman [facility] - [facility]ICE [address] [place] [address] 10/30/2022 12:50:33 10/30/2022 13:35:04 Takotsubo cardiomyopathy 130026385 I51.81 Heart catherizat ion performed 12/03/2017 revealed minimal coronary artery disease and LVEF estimated at 35-40%. Echocardio gram performed February 2019 revealed preserved LV function. Estimated ejection fraction 55-60%. Essential hypertension 30474192 I10 Review of blood pressures show mostly borderline but acceptable control. We will continue current meds. Hyperlipidemia 16107610 E78.00 On statin therapy. Managed by primary. Electrocar diogram abnormal 370021515 R94.31 No EKG at today's visit. Cerebral meningioma 1891 [address] Biggs. Status post surgical resection of meningioma . Memory impairment 677458 006 R41.3 Worsening memory impairment since meningioma resection. She will follow up with neurology regarding this. Seizure disorder 5429019 02 G40.909 S/P seizure. Managed by neuro. No further seizures status post meningioma resection. Morbid obesity 760504182 E66.01 Healthy diet discussed. Difficulty swallowing 28 1686345 R13.10 Resolved. Dehydration 94168926 E86 .0 Counseled to increase her oral intake of water and decrease caffeine and alcohol. Near syncope 238943051 R 55 Patient with frequent lightheade dness [...] syncopal episodes. Plan conservati ve management . [id number] Charly Wallace MD [facility] [address] [facility] [address] [place] [address] 06/12/2023 11:11:21 06/12/2023 12:32:47 Syncope 461687938 R55 No further syncope. Takotsubo cardiomyopathy [id number] I51.81 Heart catherizat ion performed on 12/03/2017 revealed minimal coronary artery disease and LVEF estimated at 35-40%. Echocardio gram performed February 2019 revealed preserved LV function. Estimated ejection fraction 55-60 %. Patient with shortness of breath as well as some lower extremity edema.Rece nt echo ejection fraction 60% Essential hypertension 67138352 I10 Excellent control of blood pressure. Hyperlipidemia 40742323 E78.00 On statin therapy. Managed by primary. Electrocar diogram abnormal 842955574 R94.31 No EKG at today's visit. Cerebral meningioma 1891 [address] Reynolds Status post surgical resection of meningioma . Memory impairment 521972 006 R41.3 Worsening memory impairment since meningioma resection. She will follow up with neurology regarding this. Seizure disorder 0893073 02 G40.909 S/P seizure. Managed by neuro. No further seizures status post meningioma resection. Morbid obesity 116189807 E66.01 Healthy diet discussed. Difficulty swallowing 28 7193772 R13.10 Resolved. Dehydration 15917819 E86 .0 Counseled to increase her oral intake of water and decrease caffeine and alcohol. Near syncope 292893600 R 55 Patient with frequent lightheade dness [...] Plan conservati ve management . Angina pectoris 79162835 0 I20.89 Patient with exertional dyspnea concerning [...] specificit y in this patient population . [id number] Charly Wallace MD [facility] [address] [place] [address],[address] [place] [address] 07/28/2023 10:04:16 07/28/2023 10:42:05 Takotsubo cardiomyopathy [id number] I51.81 Heart catherizat ion performed on 12/03/2017 revealed minimal coronary artery disease and LVEF estimated at 35-40%. Echocardio gram performed February 2019 revealed preserved LV function. Estimated ejection fraction 55-60 %. Patient with shortness of breath as well as some lower extremity edema.Rece nt echo ejection fraction 60%-65% Hyperlipidemia 10834091 E78.00 On statin therapy. Managed by primary. Angina pectoris 86769239 0 I20.89 Patient with exertional dyspnea concerning [...] disease. Plan conservati ve management . Syncope 574365129 R55 No further syncope. Essential hypertension 93678342 I10 Patient with borderline hypotensio n. Will decrease losartan to 25 mg p.o. nightly. Electrocar diogram abnormal 402914504 R94.31 No EKG at today's visit. Cerebral meningioma [address] Reynolds Status post surgical resection of meningioma . Memory impairment 907669 006 R41.3 Worsening memory impairment since meningioma resection. She will follow up with neurology regarding this. Seizure disorder 6392678 02 G40.909 S/P seizure. Managed by neuro. No further seizures status post meningioma resection. Morbid obesity 332406500 E66.01 Healthy diet discussed. Difficulty swallowing 28 0840075 R13.10 Resolved. Dehydration 56053047 E86 .0 Counseled to increase her oral intake of water and decrease caffeine and alcohol. Near syncope 817412119 R 55 Patient with frequent lightheade dness [...] . Obstructiv e sleep apnea of adult 2974318262 103 G47.33 Pulmonolog ist referral. Additional ly this patient had a recent pneumonia and requires pulmonary care. She is currently on home oxygen. [id number] RAY Guzman [facility] - OFFICE [address] [place] [address],[facility] [address] [place] [phone] 10/30/2023 12:47:32 10/30/2023 13:24:21 Takotsubo cardiomyopathy 145595947 I51.81 Heart catherizat ion performed on 12/03/2017 revealed minimal coronary artery disease and LVEF estimated at 35-40%. Patient with shortness of breath as well as some lower extremity edema. Most recent echo ejection fraction 60%-65%. Hyperlipidemia 87203863 E78.00 On statin therapy. Managed by primary. Angina pectoris 17906072 0 I20.89 Patient with exertional dyspnea. Cardiac PET no evidence of epicardial disease however there is evidence of microvascu lar disease. Plan conservati ve management . Syncope 972252802 R55 No further syncope. Essential hypertension 06462608 I10 Patient with mildly elevated blood pressure [...] current meds for now. Electrocar diogram abnormal 639908604 R94.31 No EKG at today's visit. Cerebral meningioma [address] Reynolds Status post surgical resection of meningioma . Memory impairment 402626 006 R41.3 Worsening memory impairment since meningioma resection. Follows with neurology regarding this. Seizure disorder 5895278 02 G40.909 S/P seizure. Managed by neuro. No further seizures status post meningioma resection. Morbid obesity 637664752 E66.01 Healthy diet discussed. Difficulty swallowing 28 8579993 R13.10 Resolved. Dehydration 26371038 E86 .0 Counseled to increase her oral intake of water and decrease caffeine and alcohol. Near syncope 273193193 R 55 Patient with frequent lightheade dness [...] . Obstructiv e sleep apnea of adult 2721090532 103 G47.33 She is currently on home oxygen. Referred to pulmonary. Health Concerns Section Related Observation LastModified by Organization Detai ls LastModified Time None Recorded Concern Status LastModified by Organization Details LastModified Time None Recorded Advance Directives Directive Y: surrogate decision maker Luis Haer Payers Encounter Date Sequence Insurance Name Policy Number Policy Schilling Covered Member ID Schilling Member ID Guarantor Name 08/28/2022 1 [place] Silvana F Payam [id number] Silvana Payam 08/28/2022 2 [employer] OPTIONS (MEDICARE SUPPLEMENT) Silvana F Villanueva Payam [id number] Silvana Payam 10/30/2022 1 [place] Silvana F Payam [id number] Silvana Payam 10/30/2022 2 [employer] OPTIONS (MEDICARE SUPPLEMENT) Silvana F Villanueva Payam [id number] Silvana Payam 06/12/2023 1 [place] Silvana F Payam [id number] Silvana Payam 06/12/2023 2 [employer] OPTIONS (MEDICARE SUPPLEMENT) Silvana Zehra Villanueva Payam [id number] Silvana Payam 07/28/2023 1 [place] Silvana F Payam [id number] Silvana Payam 07/28/2023 2 [employer] OPTIONS (MEDICARE SUPPLEMENT) Silvana F Villanueva Payam [id number] Silvana Payam 10/30/2023 1 [place] Silvana F Payam [id number] Silvana Payam 10/30/2023 2 [employer] OPTIONS (MEDICARE SUPPLEMENT) Silvana F Villanueva Payam [id number] Silvana Payam Notes Date Note Type Note [...] breathPt denies pedal edema RAY Guzman [address] [place] [address],[address], [address], [facility] 08/28/2022 14:58:26 10/30/2022 text/html Pt is here for t est follow up.Previous complaint of lightheadedness has improved since last visitPt denies chest pain or shortness of breath.Pt denies pedal edema. RAY Guzman [address] [place] [address], [phone], [facility] 10/30/2022 13:34:51 06/12/2023 text/html Patient is here today for 6 month follow up.Patient reports having shortness of breath.Patient reports having lightheadedness and dizziness sometimes.Patient denies chest pain.Patient denies pedal edema. Charly Wallace MD [address] [place] [address], [phone], [facility] 06/12/2023 20:40:19 07/28/2023 text/html Pt is here for hospital follow up.Patient recently hospitalized with sepsis and Klebsiella pneumonia. She is improving. Urgent recent cultures were negative. Patient underwent cardiac PET recently as well as echocardiography. Results to be discussed in assessment and plan. Charly Wallace MD [address] [place] [address], [place], [address], [facility] 07/28/2023 10:41:38 10/30/2023 text/html Patient is here today for 3 month follow up visitReports sob has improved.Denies chest pain.Average SBP 110s-120s and DBP 60s.No other complaints at this time. RAY Guzman [address] [place] [address],[address], [phone], [facility] 10/30/2023 13:24:09 OBGyn Episode No OBEpisode recorded.
--- OUTSIDE RECORDS SUMMARY | 2024-06-10 15:20 | XMS_ITS | Patient Health Record ---
Author Organization [facility] Address [address] [place] [address] [place] [phone] Support Name Relationship Address Phone JAYJAY JACKSON Guarantor Unknown [phone] ALLERGIES No Known Allergies REASON FOR REFERRAL [...] Hypothyroidism, unspecified (E03.9) Active confirmed Hypothyr oidism (15839038) Problem Essential tremor (G25.0) Active confirmed 014797972 Problem Essential hypertension (I10) Active confirmed 08876129 Problem Gastroesophageal reflux disease without esophagitis (K21.9) Active confirmed 949603272 Problem Depression, unspecified depression type (F32.9) Active confirmed 29977758 Problem Psychophysiological insomnia (F51.04) Active confirmed 662495541 Problem Hyperlipemia, mixed (E78.2) Active confirmed Mixed hyperlipidemia (175698685) PLAN OF TREATMENT Pending Test Test Name Order Date Chest X-ray PA and lateral 06/06/2020 Urinalysis, Complete 06/06/2020 Urine Culture and Sensitivity 06/06/2020 Insurance Providers Payer Name Payer Address Payer Phone Subscriber Number Group Number Insured Name Patient Relationship to Insured Coverage Start Date Coverage End Date Medicare of [place] [employer] [address] [address] [place] [address] [id number] JAYJAY JACKSON Self - patient is the insured [facility] Medicare Supplement [address] [place] R[place] F[place] [phone] [id number] JAYJAY JACKSON Self - patient is the insured MEDICAL (GENERAL) HISTORY Medical History History ICD Code Hypertension Hyperlipidemia Hypothyroid Depression Surgical History Surgery Date(Month/Year) menningioma
--- OUTSIDE RECORDS SUMMARY | 2024-06-10 15:20 | XMS_ITS | Clinical Summary ---
Author Organization [facility] Address [address] [place] [address] Care Team Providers Care Final Installer Inspector Name Role Phone Jose Norton MD Primary Care Provider [phone] Allergies Active Allergy Reactions Criticality Noted Date Comments Ciprofloxacin Itching,Swelling,Redness High 07/27/19 23 Medications famotidine (PEPCID) 40 MG tablet Take 1 tablet (40 mg total) by mouth. 04/20/2023 Active lamoTRIgine (LAMICTAL) 100 MG tablet Take 1 tablet (100 mg total) by mouth 2 (two) times daily. Active levothyroxine (SYNTHROID) 25 MCG tablet Take 1 tablet (25 mcg total) by mouth daily. Active pantoprazole EC (PROTONIX) 40 MG tablet Take 1 tablet (40 mg total) by mouth daily. Active PARoxetine (PAXIL) 30 MG tablet Take 1 tablet (30 mg total) by mouth. 03/27/2023 Active primidone (MYSOLINE) 250 MG tablet Take 1 tablet (250 mg total) by mouth daily. 02/21/2023 Active rosuvastatin (CRESTOR) 40 MG tablet Take 1 tablet (40 mg total) by mouth daily. Active aspirin 81 MG chewable tablet Chew 1 tablet (81 mg total) by mouth daily. Active carvedilol (COREG) 6.25 MG tablet Take 1 tablet (6.25 mg total) by mouth 2 (two) times daily. 180 tablet 04/13/2024 Active losartan (COZAAR) 100 MG tablet Take 1 tablet (100 mg total) by mouth daily. 30 tablet 2 05/05/2024 Active Encounters Date Type Department Care Team Description 05/13/2024 Abstract [facility] [address], [facility] [address] [place] [address] Robe Mendoza MA 05/12/2024 Orders Only [facility], [facility] [address] [place] [address] Sadie Villasenor MD 05/05/2024 Telephone [facility], [place] [address] [place] [address] Sadie Villasenor MD Blood Pressure 04/13/2024 Telephone [facility] [place] [facility], [place] [address] [place] [address] Sadie Villasenor MD Medication (Carvedilol ) from [...] Comments Blood Pressure 112/70 02/13/2024 11:49 AM [employer] Pulse 71 02/13/2024 11:49 AM [employer] Temperature - - Respiratory Rate - - Oxygen Saturation 91% 02/13/2024 11: 49 AM [employer] Inhaled Oxygen Concentration - - Weight 112.2 kg (247 lb 6.4 oz) 024 11:49 AM [employer] Height 162.6 cm (5' 4 ) 02/13/2024 11:4 9 AM [employer] Body Mass Index 42.47 02/13/2024 11:49 AM [employer] Plan of Treatment Upcoming Encounters Date Type Department Care Team (Late Contact Info) Description 08/24/2024 1:00 PM CDT Office Visit [facility] [address] [facility], [address] [place] [phone] Monet Beltran MD [address] [place] [address] 09/03/2024 12:00 PM CDT Office Visit [facility] [address] Sadie Villasenor MD [address] [facility] [address] [place], [place] [phone] Health Maintenance Due Date Last Done Comments [...] 2023 Influenza Adult (#1) 2023 PHQ-2 (Physician [place]) 03/24/2024 Meningococcal B Vaccine Aged Out No [...] Result from Last 3 Months Insurance MEDICARE [facility] Care Teams Final Installer Inspector Relationship Specialty Start Date End Date Jose Norton MD [address] [email or web address] [address] PCP - General FAMILY PRACTICE 02/13/24
--- OUTSIDE RECORDS SUMMARY | 2024-06-10 15:20 | XMS_ITS | Data Portability ---
Author Organization [place] - [employer] [facility] [employer] Address [address] [place] [address] Care Team Providers Care Manager Of Manufacturing Name Role Phone DEBI MATOS Primary Care [...] By Organization Details Last Modified Time 09/15/2023 [id number] The member was located in {{[facility]}} at the time of this call. Miscellaneous [...] spent in service of member: {{ 10#}} [email or web address] Not available 09/15/2023 15:29:17 09/29/2023 [id number] General Information During the time of {{telephonic* vide o call}} member was located in {{[facility] tra veling outside state of origin}}. Member is enrolled in {{diabetes hyperte nsion* diabetes & hyptertension}} program. During the call the nurse reviewed patients blood pressure and was able to address patient's concerns and/or questions. Clinical Picture Average BP Over last {{7 30*}} days: Systolic {{ 125#}} Diastolic {{ 70#}} . Based on member's readings and the parameters set by [employer] SENIOR [employer]DFUSION DEVELOPER, member's blood pressure is {{low at goal [...] {{Time 4#}} All members must have an SENIOR COLDFUSION DEVELOPER visit at minimum every 6 months while active, or when meeting escalation criteria. A [employer] SENIOR COLDFUSION DEVELOPER follow-up visit {{was scheduled today was offered today and the member refused was not offered/needed today}}. Members next [employer] SENIOR [employer]DF[employer]ION DEVELOPER follow-up appointment is confirmed on {{Date}} between [...] to member's care plan for additional details. [email or web address] Not available 09/29/2023 16:06:52 10/13/2023 [id number] General Information Member was contacted via interactive {{telephonic outreach* video call}} and was located in {{[facility]* [facility] outside our service area}}. Call recording [...] readings and the parameters set by [employer]ENIOR [employer]DFUSION DEVELOPER, member's blood pressure is {{low at goal* [...] no symptoms endorsed by member*}} a [employer] SENIOR COLDFUSION DEVELOPER follow-up visit {{has has not*}} been recommended. [...] PM EDT All members must have an SENIOR COLDFUSION DEVELOPER visit at minimum every 6 months while active, or when meeting escalation criteria. A [employer] SENIOR COLDFUSION DEVELOPER follow-up visit {{was scheduled today was offered today and the member refused was not offered/needed today* is already scheduled}}. Members next [employer] SENIOR COLDFUSION DEVELOPER follow-up appointment {{has not been scheduled* is on}} {{}} between {{9:00-11:00 AM 11:00-2:00 PM 2:00-5:00 pm}}. Total time spent in the care of the member: {{ 15#}} minutes [email or web address] Not available 10/13/2023 16:08:10 10/27/2023 [id number] General Information Member was contacted via interactive {{telephonic outreach* video call}} and was located in {{[facility]* [facility] a state outside our service area}}. [...] member's readings and the parameters set by [employer] SENIOR COLDFUSION DEVELOPER, member's blood pressure is {{low at goal* [...] no symptoms endorsed by member*}}, a [employer] SENIOR COLDFUSION DEVELOPER follow-up visit {{has has not*}} been recommended. [...] {{ 11/09#}} All members must have an SENIOR COLDFUSION DEVELOPER visit at minimum every 6 months while active, or when meeting escalation criteria. A [employer] SENIOR COLDFUSION DEVELOPER follow-up visit {{was scheduled today was offered today and the member refused was not offered/needed today* is already scheduled}}. Members next [employer] SENIOR COLDFUSION DEVELOPER follow-up appointment {{has not been scheduled is on}} {{}} between {{9:00-11:00 AM 11:00-2:00 PM 2:00-5:00 pm}}. Total time spent in the care of the member: {{ 10#}} minutes Not available 10/27/2023 15:39:53 11/10/2023 [id number] General Information Member was contacted via interactive {{telephonic outreach* video call}} and was located in {{[facility]* [facility] our service area}}. Call recording [...] member's readings and the parameters [facility], member's blood pressure is {{low at goal* [...] no symptoms endorsed by member*}}, a [employer] SENIOR COLDFUSION DEVELOPER follow-up visit {{has has not*}} been recommended. [...] {{ 12/07#}} All members must have an SENIOR COLDFUSION DEVELOPER visit at minimum every 6 months while active, or when meeting escalation criteria. A [employer] SENIOR COLDFUSION DEVELOPER follow-up visit {{was scheduled today was offered today and the member refused was not offered/needed today* is already scheduled}}. Members next [employer] SENIOR COLDFUSION DEVELOPER follow-up appointment {{has not been scheduled is on}} {{}} between {{8:00 AM - 10:59 AM ET 11:00 AM - 1:59 PM ET 2:00 PM - 5:00 PM ET}}. Total time spent in the care of the member: {{ 15#}} minutes [email or web address] Not available 11/10/2023 16:04:17 Reason for Referral None Reported. Problems Name Problem SNOMED Code Status Onset Date Resolution Date Notes Provider Name and Address Organization Details Recorded Time Essential hypertension 41771785 Active 2023 Carisa osorio, SENIOR COLDFUSION DEVELOPER [address] , [place], [address], [facility] 14:05:29 Prediabetes 966388397 Active 2023 Carisa osorio, SENIOR COLDFUSION DEVELOPER [address] , [place], [address], [facility] 14:05:31 Obesity 340402113 Active 2023 Carisa osorio, SENIOR COLDFUSION DEVELOPER [address] , [place], [address], [facility] 14:05:43 Atrial fibrillation 49329325 Active 2023 Carisa osorio, SENIOR COLDFUSION DEVELOPER [address] , [place], [address], [facility] 4 14:05:49 Anxiety 18967849 Active 2023 Carisa osorio, SENIOR COLDFUSION DEVELOPER [address] , [place], [address], [facility] 14:05:56 Depressive disorder 63383315 Active 2023 Carisa osorio, SENIOR COLDFUSION DEVELOPER [address] , [place], [address], [facility] 14:06:02 Epilepsy 19669484 Active 2023 Carisa Hamilton devon, SENIOR COLDFUSION DEVELOPER [address] , [place], [address], [place] [facility] 14:06:12 Sleep apnea 26511532 Active 2023 Carisa Hamilton devon, SENIOR COLDFUSION DEVELOPER [address] , [place], [address], [place] [facility] 14:06:20 Hypothyroidism 52459048 Active 2023 Carisa osorio, SENIOR COLDFUSION DEVELOPER [address] , [place], [address], [place] [facility] 14:06:28 Hyperlipidemia 81774900 Active 2023 Carisa osorio, SENIOR COLDFUSION DEVELOPER [address] , [place], [address], [place] [facility] 14:06:34 Problem Notes None recorded. Procedures Surgical History Date Name Laterality Status Provider Name and Address Organization Details Recorded Time cholecystectomy completed Carisa Blunt , TEJINDER [address], [place], [address], [place] [facility] 07/03/2023 14:01:30 chin lift completed Carisa Blunt , TEJINDER [address], [place], [address], [place] [facility] 07/03/2023 14:01:49 total replacement of left knee joint completed Carisa Blunt NP [address], [place], [address], [place] [facility] 07/03/2023 14:02:00 total replacement of right knee joint completed Carisa Blunt NP [address], [place], [address], [place] [facility] 07/03/2023 14:02:10 Exploration maxillary sinus completed Carisa Blunt NP [address], [place], [address], [facility] 07/03/2023 14:02:41 craniectomy completed Carisa Jose Raul , TEJINDER [address], [place], [address], [facility] 07/03/2023 14:02:52 Imaging Results None recorded. Procedure [...] Updated DateTime 10/27/2023 162.56 cm 40.3 kg/m2 824686.21 g [facility] 10/27/2023 15:39:57 Social History Question Answer Notes LastModified by Organizat ion Details LastModified Time Tobacco Smoking Status Former Smoker Carisa Blunt, TEJINDER [address], [place], [address], [facility] 07/03/2023 13:54:10 What Is Your Level Of Alcohol Consumption? Moderate Information not available 07/03/2023 What Is Your Level Of Caffeine Consumption? Moderate Information not available 07/03/2023 When Did You Quit Smoking? 18+yearssincel [facility] Information not available 07/03/2023 Sex: Unknown Functional Status None recorded. Mental Status None recorded. Family History Nothing Reported. Medical History Condition Response Anxiety Disorder Y Diabetes Y Obesity Y Seizures/Epilepsy Y Sleep Apnea Y High Cholesterol Y Hypertension Y Hypothyroidism Y Depression Y Gynecological HistoryNo gynecological history recorded. Obstetrics History GPAL:G 0 P 0 0 0 0 Past Encounters Encounter ID Performer Location Encounter Start Date Encounter Closed Date Diagnosis/Indication Diagnosis SNOMED-CT Code Diagnosis ICD10 Code Diagnosis Note [id number] Carisa Nirmala er, SENIOR COLDFUSION DEVELOPER PS_Provid er Schedule [address] [place] [address] 07/03/2023 13:40:24 07/03/2023 14:08:36 Essential hypertension 13049164 I10 Prediabetes 601666177 R7 3.03 [id number] Carisaray Hamiltonv er, SENIOR COLDFUSION DEVELOPER NS_Nursin g Schedule [address] [place] [address] 07/21/2023 15:13:02 07/21/2023 16:39:49 Essential hypertension 90514972 I10 Prediabetes 368671378 R7 3.03 [id number] Carisa Joyv er, SENIOR COLDFUSION DEVELOPER NS_Nursin g Schedule [address] [place] [address] 08/01/2023 15:56:41 08/01/2023 17:01:56 Essential hypertension 55094760 I10 Prediabetes 567783479 R7 3.03 [id number] Carisa Wason-Fawv er, SENIOR COLDFUSION DEVELOPER NS_Nursin g Schedule [address] [place] [address] 08/04/2023 15:02:39 08/04/2023 16:55:57 Essential hypertension 68032408 I10 Prediabetes 896543259 R7 3.03 [id number] Carisa Wason-Fawv er, SENIOR COLDFUSION DEVELOPER NS_Nursin g Schedule [address] [place] [address] 09/01/2023 15:48:33 09/01/2023 17:00:58 Essential hypertension 09210440 I10 Prediabetes 630609113 R7 3.03 [id number] Carisa Wason-Fawv er, SENIOR COLDFUSION DEVELOPER NS_Nursin g Schedule [address] [place] [address] 09/15/2023 15:19:55 09/16/2023 08:36:48 Essential hypertension 24045567 I10 Prediabetes 923384219 R7 3.03 [id number] Carisa Wason-Fawv er, SENIOR COLDFUSION DEVELOPER NS_Nursin g Schedule [address] [place] [address] 09/29/2023 15:55:33 09/29/2023 17:01:09 Essential hypertension 55162004 I10 Prediabetes 507578535 R7 3.03 [id number] Carisa Wason-Fawv er, SENIOR COLDFUSION DEVELOPER NS_Nursin g Schedule [address] [place] [address] 10/13/2023 15:55:16 10/13/2023 17:04:07 Essential hypertension 14501153 I10 Prediabetes 898877150 R7 3.03 [id number] Carisa Wason-Fawv er, SENIOR COLDFUSION DEVELOPER NS_Nursin g Schedule [address] [place] [address] 10/27/2023 15:31:55 10/27/2023 16:50:14 Essential hypertension 13686032 I10 Prediabetes 757370618 R7 3.03 [id number] Carisa Wason-Fawv er, SENIOR COLDFUSION DEVELOPER NS_Nursin g Schedule [address] [place] [address] 11/10/2023 15:53:20 11/10/2023 16:40:14 Essential hypertension 95383590 I10 Health Concerns Section Related Observation LastModified by Organization Detai ls LastModified Time None Recorded Concern Status LastModified by Organization Details LastModified Time None Recorded Advance Directives Directive None Recorded Payers Encounter Date Sequence Insurance Name Policy Number Policy Schilling Covered Member ID Schilling Member ID Guarantor Name 09/15/2023 1 [place] Silvana F Payam [id number] Silvana Payam 09/29/2023 1 [place] Silv[place] F Payam [id number] Silvana Payam 10/13/2023 1 [place] Silvana F Payam [id number] Silvana Payam 10/27/2023 1 [place] Silvana F Payam [id number] Silvana Payam 11/10/2023 1 [place] Silvana F Payam [id number] Silvana Payam OBGyn Episode No OBEpisode recorded.
--- OUTSIDE RECORDS SUMMARY | 2024-06-10 15:21 | XMS_ITS | Data Portability ---
Author Organization [place] [facility] [place], [facility] Address [address] [place] [address] Assessment Encounter Date Assessment Date Assessment LastModified [...] Plan: a. Discontinue clobetasol as advised by chip bin operator. b. Follow chip bin operator's recommendations for alternative creams. 7. Gastroesophageal reflux [...] None recorded. Lab culture, urine 2023 024 bsche[facility], [address] [place] [address], [address], [address], 5 05:15:08 urinalysis, complete 2023 024 [employer]Out[employer] [facility], [address] [place] [address], [facility] [address], [address], 5 05:15:04 Referral None recorded. Procedures None recorded. Surgeries None recorded. Imaging None recorded. Medication Orders tirzepatide (weight loss) 10 mg/0.5 mL subcutaneou s pen injector 2023 024 bschein [facility] [address], [address], [place], [address], 5 06:22:59 oxybutynin chloride ER 5 mg tablet,exte nded release 24 hr 2023 024 bschein [facility] [address], [address], [place], [address], 5 06:21:39 Estrace 0.01% (0.1 mg/gram) vaginal cream 2023 024 ANTHONY [facility] [address] [address], [address], [place], [address], 4 13:11:38 metronidazo le 500 mg tablet 2023 024 ANTHONY [facility] [address], [address], [place], [address], 4 13:14:39 clobetasol 0.05 % scalp solution 2023 024 bschein [facility] [address], [address], [place], [address], 5 06:19:15 selenium sulfide 2.25 % shampoo 2023 024 bschein [facility] [address], [address], [place], [address], 5 06:19:36 nystatin 100,000 unit/gram topical cream 2023 024 bschein [facility] [address], [address], [place], [address], 5 06:19:59 clobetasol 0.05 % topical cream 07/23/ 2024 07/23/2 024 bschein [facility] An[address]tero, [address] [place], [address], 06:18:36 clobetasol 0.05 % topical gel 2023 024 bschein [facility] [address], [address] [place], [address], 06:18:56 Patient TargetsNo targets recorded. Patient Instructions Encounter Date Encounter Id Patient Instructions Last Modified By Organization Details Last Modified Time 09/22/2023 [id number] epilepsy: care instructions bschein Not available 04/19/2024 [...] our office. Warm regards, Noe Camp MD Electrical Drafter [facility] Not available 09/22/2023 16:44:06 10/23/2023 [id number] atrophic vaginit is: care instructions bschein Not [...] 07:16:02 Date: Fri From: Dr. Noe Camp, Electrical Drafter, Family [facility], Thank you for visiting today and discussing [...] you soon. Best regards, Dr. Noe Camp Electrical Drafter, Family Medicine Not available 10/23/2023 14:51:31 11/19/2023 [id number] atrophic vaginit is: care instructions bschein Not [...] should no longer be used; follow your chip bin operator's advice regarding alternative creams. - Maintain current [...] a target weight of 210-220 pounds by [place]. - General Health: - Your recent lab [...] you again soon. Sincerely, Dr. Noe Camp, Electrical DrafterStore Sales Manager: Family Medicine Not available 11/19/2023 13:20:25 12/22/2023 [id number] sleep apnea: car e instructions bschein Not [...] ve normal Not Available [facility] [address] [place], [address], 10/24/2023 19:01:24 10/23/19 24 10/24/2023 SURES WAB(R ) ADVAN FLORIDALMA VAGIN ITIS PLUS, TMA alfredo species NOT DETECT ED not detect ed normal Not Available [facility] [place] [facility] [address] [place], [address], 10/24/2023 19:01:24 10/23/19 24 10/24/2023 SURES WAB(R [...] resul t. Not Available [facility] [place] [facility] [address], [place], [address], 10/24/2023 19:01:24 10/23/19 24 10/24/2023 SURES WAB(R ) ADVAN FLORIDALMA VAGIN ITIS PLUS, TMA trichomonas vaginalis (TV), tma NOT DETECT ED not detect ed normal Not Available [facility] [place] [facility] [address], [place], [address], 10/24/2023 19:01:24 10/23/19 24 10/24/2023 SURES WAB(R ) ADVAN FLORIDALMA VAGIN ITIS PLUS, TMA chlamydia trachomatis RNA, tma, urogenital NOT DETECT ED not detect ed normal Not Available [facility] [place] [facility] [address], [place], [address], 10/24/2023 19:01:24 10/23/19 24 10/24/2023 SURES WAB(R ) ADVAN FLORIDALMA VAGIN ITIS PLUS, TMA neisseria gonorrhoeae RNA, tma, urogenital NOT DETECT ED not detect ed normal For addit ional infor maykel gutierrez refer to https ://ed ucati on.qu lazarus [employer]. Qui.lt/f aq/FA Q154 (This link is being provi ded for infor ida horn/ edgardo gupta purpo ses only. ) Not Available [facility] [place] [facility] [address], [place], [address], 10/24/2023 19:01:24 10/23/19 24 10/25/2023 URINA LYSIS , COMPL ETE color YELLOW yellow normal Not Available [facility] [place] [facility] [address], [place], [address], 10/25/2023 01:50:50 10/23/1910/2410/25/2023 URINA LYSIS , COMPL ETE appearance CLEAR clear normal Not Available [facility] [place] [facility] [address], [place], [address], 10/25/2023 01:50:50 10/23/1910/25/2023 URINA LYSIS , COMPL ETE specific gravity 1.013 1.001- 1.035 normal Not Available [facility] [place] [facility] [address], [place], [address], 10/25/2023 01:50:50 10/23/19 24 10/25/2023 URINA LYSIS , COMPL ETE pH 6.0 5.0-8. 0 normal Not Available [facility] [place] [facility] [address], [place], [address], 10/25/2023 01:50:50 10/23/19 24 10/25/2023 URINA LYSIS , COMPL ETE glucose NEGATI VE negati ve normal Not Available [facility] [place] [facility] [address], [place], [address], 10/25/2023 01:50:50 10/23/19 24 10/25/2023 URINA LYSIS , COMPL ETE bilirubin NEGATI VE negati ve normal Not Available [facility] [place] [facility] [address], [place], [address], 10/25/2023 01:50:50 10/23/19 24 10/25/2023 URINA LYSIS , COMPL ETE ketones NEGATI VE negati ve normal Not Available [facility] [place] [facility] [address], [place], [address], 10/25/2023 01:50:50 10/23/19 24 10/25/2023 URINA LYSIS , COMPL ETE occult blood 2+ negati ve abnormal Not Available [facility] [place] [facility] [address], [place], [address], 10/25/2023 01:50:50 10/23/19 24 10/25/2023 URINA LYSIS , COMPL ETE protein NEGATI VE negati ve normal Not Available [facility] [place] [facility] [address], [place], [address], 10/25/2023 01:50:50 10/23/19 24 10/25/2023 URINA LYSIS , COMPL ETE nitrite NEGATI VE negati ve normal Not Available [facility] [place] [facility] [address], [place], [address], 10/25/2023 01:50:50 10/23/19 24 10/25/2023 URINA LYSIS , COMPL ETE leukocyte esterase NEGATI VE negati ve normal Not Available [facility] [address], [place], [address], 10/25/2023 01:50:50 10/23/19 24 10/25/2023 URINA LYSIS , COMPL ETE WBC NONE SEEN /hpf < or = 5 normal Not Available [facility] [place] [facility] [address], [place], [address], 10/25/2023 01:50:50 10/23/19 24 10/25/2023 URINA LYSIS , COMPL ETE RBC 3-10 /hpf < or = 2 abnormal Not Available [facility] [place] [facility] [address], [place], [address], 10/25/2023 01:50:50 10/23/19 24 10/25/2023 URINA LYSIS , COMPL ETE squamous epithelial cells 0-5 /hpf < or = 5 Not Available [facility] [place] [facility] [address], [place], [address], 10/25/2023 01:50:50 10/23/19 24 10/25/2023 URINA LYSIS , COMPL ETE bacteria NONE SEEN /hpf none seen normal Not Available [facility] [address], [place], [address], 10/25/2023 01:50:50 10/23/19 24 10/25/2023 URINA LYSIS , COMPL ETE hyaline cast NONE SEEN /lpf none seen normal Not Available [facility] [place] [facility] [address], [place], [address], 10/25/2023 01:50:50 10/23/19 24 10/25/2023 URINA LYSIS , COMPL ETE note This urine was jessica zed for the prese nce of WBC, RBC, bacte tonie, casts , and other forme d eleme nts. Only those eleme nts seen were repor lucas. Not Available [facility] [place] [facility] [address], [place], [address], 10/25/2023 01:50:50 10/23/19 24 10/25/2023 CULTU RE, URINE , ROUTI NE culture, urine, routine SEE NOTE CULTU RE, URINE , ROUTI NE Micro Numbe r: [id number] Test Statu s: Final Speci men [...] port Tube. Not Available [facility] [place] [facility] [address], [place], [address], 10/25/2023 01:50:53 10/09/19 24 10/09/2023 DEXA No observ [facility]ion [facility] [address], [place], [address], 04/19/2024 04:39:48 10/14/19 24 10/09/2023 MAMMO , scree chuck, digit al, bilat eral No observ ation record ed. [facility] [address], [place], [address], 04/19/2024 04:39:53 10/15/19 24 10/15/2023 US, breas t, unila teral No observ ation record ed. [facility] [address], [place], [address], 04/19/2024 04:39:44 Result Notes None recorded. Problems Name Problem SNOMED Code Status Onset Date Resolution Date Notes Provider Name and Address Organization Details Recorded Time Morbid obesity 322652500 Active 2022 Not Available [facility] 4 18:10:59 Osteoarthri tis 013922715 Active 2020 Not Available [facility] 4 18:10:59 Hypertensiv e disorder 86407290 Active 2020 Not Available [facility] 4 18:10:59 Hypothyroid ism 81854635 Active 2020 Not Available [facility] 4 18:10:59 Gastroesoph ageal reflux disease 243668783 Active 2020 Not Available [facility] 4 18:10:59 Hyperlipide juany 13905436 Active 2020 Not Available [facility] 4 18:10:59 Essential tremor 157571849 Active 2020 Not Available [facility] 4 18:10:59 Benign meningioma 762168843 Active 2020 Not Available [facility] 4 18:10:59 Depressive disorder 40121130 Active 2020 Not Available [facility] 4 18:10:59 Seizure disorder 759039340 Active 2020 Not Available [facility] 4 18:10:59 Acute bronchitis 16799367 Active 2022 Not Available [facility] 4 18:10:59 Obesity 829387838 Active 2022 Not Available [facility] 4 18:10:59 Prediabetes 979097955 Active 2023 [facility] [address], [place], [address], [place] [facility] 4 13:09:55 Congestive heart failure 84270090 Active [address], [place], [address], [place] [facility] 4 13:06:49 Obstructive sleep apnea syndrome 43838666 Active [address], [place], [address], [place] [facility] 4 13:19:37 Vaginitis 05730142 Active [address], [place], [address], [place] [facility] 4 13:35:52 Atopic dermatitis 30230515 Active [address], [place], [address], [place] [facility] 4 15:30:53 Herpes zoster 2363284 Active [address], [place], [address], [place] [facility] 4 15:32:23 Pruritic rash 41412611 Active [address], [place], [address], [place] [facility] 4 15:34:37 Seborrheic keratosis 587356979 Active [address], [place], [address], [place] [facility] 4 15:39:14 Seborrheic dermatitis of scalp 985897863 Active 2023 [facility] [address], [place], [address], [place] [facility] 4 14:41:41 Acute cystitis 25908535 Active 2023 [facility] [address], [place], [address], [place] [facility] 4 14:47:31 Atrophic vaginitis 33172305 Active 2023 [facility] [address], [place], [address], [place] [facility] 4 15:18:29 Bacterial vaginosis 625902983 Active 2023 [facility] [address], [place], [address], [place] [facility] 4 15:18:43 Candidiasis of vagina 97546011 Active 2023 [facility] [address], [place], [address], [place] [facility] 4 15:18:49 Type 2 diabetes mellitus 80111947 Active 2023 [facility] [address], [place], [address], [place] [facility] 4 19:56:34 Overactive urinary bladder 376191325 Active 2023 MD [facility] [address], [place], [address], [place] [facility] 4 13:12:56 Intentional weight loss 057544396 Active 2023 Noe Camp MD [address], [place], [address], [place] [facility] 13:22:00 Problem Notes None recorded. Procedures Surgical History Date Name Laterality Status Provider Name and Address Organization Details Recorded Time 024 AWV completed MD Jacob [address], [place], [address], [place] [facility] 06/03/2023 13:30:05 023 AWV completed Jessika Sanders NP [address], [place], [address], [place] [facility] 04/23/2022 13:21:18 022 AWV completed MD [address], [place], [address], [place] [facility] 04/03/2021 15:13:15 021 AWV completed Henry Mullins [place] Brendan [facility] 01/23/2021 13:41:04 021 Knee Replacement completed Joaquin Akhtar [place] [facility] 10/03/2020 15:20:10 016 Knee Replacement completed Joaquin Cardona [facility] 10/03/2020 15:20:25 977 Cholecystectomy completed Joaquin Akhtar [place] B[facility] 10/03/2020 15:19:41 Imaging Results Imaging Date Name Status LastModified by [facility] Details LastModified Time 10/09/2023 DEXA completed [facility] [address], [place], [address], 04/19/2024 04:39:48 10/09/2023 MAMMO, screening, digital, bilateral completed bschein [facility] [address], [place], [address], 04/19/2024 04:39:53 10/15/2023 US, breast, unilateral completed bschein [facility] [address], [place], [address], 04/19/2024 04:39:44 Procedure Notes None recorded. Medical Equipment None Reported. Allergies Allergen ID Allergen Name Allergen Category Reaction Reaction Severity Criticality Documentation Date Start Date Code Code System Note Provider Name and Address Organization Details Recorded Time 5367 ciproflox acin medicatio n Not available Not available Not available 09/25/20222022 2551 RxNorm ISA Welch - [facility] [place] [facility] [place] 14:06:59 Medications Name Sig Start Date Stop [...] Available Not Available No t Available Intrinsi B00-Tlqzem 500 mcg-20 mg-800 mcg tablet Take 1 [...] Updated DateTime 4 162.56 cm 42.1 kg/m2 117459. 13 g 98.2 [degF] 95 % 95 % 73 /min 122 mm[Hg] 78 mm[Hg] Joaquin Hassan MD [facility] 4 15:53:36 Date Recorded Body height Oxygen saturation Oxygen saturation in Arterial blood by Pulse oximetry Body temperature Heart rate Systolic blood pressure Diastolic blood pressure Provider Name and Address Organization Details Last Updated DateTime 4 162.56 cm 90 % 90 % 98.6 [degF] 66 /min 118 mm[Hg] 70 mm[Hg] Nayeli Hassan MD [facility] 4 15:15:52 Date Recorded Body height Body mass index (BMI) Body weight Body temperature Oxygen saturation Oxygen saturation in Arterial blood by Pulse oximetry Systolic blood pressure Diastolic blood pressure Provider Name and Address Organization Details Last Updated DateTime 4 162.56 cm 41.5 kg/m2 764787. 35 g 97.4 [degF] 91 % 91 % 110 mm[Hg] 60 mm[Hg] Alonzo Hassan MD [facility] 4 14:11:19 Date Recorded Body height Body mass index (BMI) Body weight Oxygen saturation Oxygen saturation in Arterial blood by Pulse oximetry Body temperature Heart rate Systolic blood pressure Diastolic blood pressure Provider Name and Address Organization Details Last Updated DateTime 4 162.56 cm 41.2 kg/m2 785877. 17 g 92 % 92 % 98.1 [degF] 73 /min 110 mm[Hg] 58 mm[Hg] Renetta Hassan MD [facility] 4 13:01:35 Date Recorded Body height Body mass index (BMI) Body weight Body temperature Heart rate Oxygen saturation Oxygen saturation in Arterial blood by Pulse oximetry Systolic blood pressure Diastolic blood pressure Provider Name and Address Organization Details Last Updated DateTime 4 162.56 cm 42.1 kg/m2 714584. 13 g 98.3 [degF] 79 /min 94 % 94 % 102 mm[Hg] 60 mm[Hg] Alonzo Hassan MD [facility] 4 13:05:58 Social History Question Answer Notes LastModified by Organizat ion Details LastModified Time Tobacco Smoking Status Never Smoker ISA Welch MD [facility] 10/03/2020 15:17:48 Do You Have An Advance [...] Anxious, Or Unable To Sleep At Night)? [id number] Information not available 04/03/2021 Sex: Unknown Functional [...] 22 completed Joaquin delaney [place] - [facility] 10/05/2021 15:10:39 Influenza, split virus, trivalent, preservative [...] trivalent, PF 01/09/20 18 completed Not Available [facility] 04/29/2023 14:45:32 Influenza, high-dose, trivalent, PF 01/03/20 16 completed Not Available [facility] 04/29/2023 14:45:32 Influenza, split virus, trivalent, preservative 01/03/20 10 completed Not Available [facility] 04/29/2023 14:45:32 Influenza, high-dose, trivalent, PF 12/23/19 18 completed Not Available [facility] 04/29/2023 14:45:32 Influenza, split virus, trivalent, preservative 01/15/20 11 completed Not Available [facility] 04/29/2023 14:45:32 pneumococcal polysaccharide PPV23 01/23/20 10 completed Not Available [facility] 04/29/2023 14:45:32 pneumococcal polysaccharide PPV23 03/24/19 11 completed Not Available [facility] 04/29/2023 14:45:32 Influenza, high-dose, trivalent, PF 12/22/19 15 completed Not Available [facility] 04/29/2023 14:45:32 Influenza, split virus, trivalent, preservative 12/21/19 09 completed Not Available [facility] 04/29/2023 14:45:32 COVID-19, mRNA, LNP-S, PF, 100 mcg/0.5mL dose or 50 mcg/0.25mL dose 05/19/19 21 completed Not Available [facility] 04/29/2023 14:45:32 Influenza, high-dose, quadrivalent, PF 12/27/19 [address], [place], [address], [place] [facility] 12/27/2021 08:42:07 zoster recombinant 07/16/19 23 completed MD [address], [place], [address], [place] [facility] 07/15/2022 21:37:09 Influenza, high-dose, quadrivalent, PF 12/28/19 23 completed Isauro Rao MD [address] [address], [place], [address], [place] Brendan Hassan MD [facility] 12/29/2022 12:01:44 RSV, recombinant, protein subunit RSVpreF, adjuvant reconstituted, 0.5 mL, PF 12/28/19 23 completed Isauro Rao MD [address] [place] [address] [address], [place], [address], [place] Brendan Hassan MD [facility] 12/29/2022 12:01:44 COVID-19, mRNA, LNP-S, PF, 100 mcg/0.5mL dose or 50 mcg/0.25mL dose 01/24/20 21 completed ISA Welch MD [facility] 01/23/2021 14:19:53 Past Encounters Encounter ID Performer Location Encounter Start Date Encounter Closed Date Diagnosis/Indication Diagnosis SNOMED-CT Code Diagnosis ICD10 Code Diagnosis Note [id number] MD PRIME LACI Winslow [facility] [address] [place] [address] [place] [address] 10/03/2020 15:04:40 10/03/2020 16:00:19 Benign meningioma 381925715 D32.9 Continue with her antiseizur e medicine. Depressive disorder 9318 9007 F32.9 She fell onto depression after her daughter from opiate overdose. She is going to continue with paroxetine which she needs a refill for today. Essential tremor 8313532 09 G25.0 Currently on pramipexol e with change controls her essential tremor quite well. Gastroesop hageal reflux disease 893687023 K21.9 Well-contr olled on PPI currently Hyperlipidemia 23781592 E78.5 She does need a lipid panel lab obtained. Hypertensive disorder 38 519949 I10 We will check CBC CMP and TSH. Hypothyroidism 16814785 E03.9 Check a TSH. Osteoarthritis 788098574 M19.90 Tylenol as needed she is using her own home physical therapy regimen. Seizure disorder 7492984 02 G40.909 Currently on Lamictal from previous brain surgery Type 2 olivia betes mellitus 34658425 E11.9 Excellent control based on her last hemoglobin A1c. [id number] MD PRIME LACI Winslow [facility] Office [address] [place], [place] [address]Ant [address] 8 10/05/2020 10:18:00 10/05/2020 10:36:44 [id number] MD PRIME LACI Winslow [facility] Office [address] [place], [place] [address]Ant [address] [place] [id number] 8 10/20/2020 13:13:00 10/20/2020 15:35:18 Acute sinusitis 87718417 J01.90 start augmentin 875mg po bid for 5 days and dexamethas one 4 mg for 5 days Hyperlipidemia 39841227 E78.5 Start crestor Hypothyroidism 21994761 E03.9 TSH at target Type 2 olivia betes mellitus 68610760 E11.9 Excellent control based on her last hemoglobin A1c. Loose stool 349377279 R1 9.5 Check stool studies. [id number] MD PRIME LACI Winslow [facility] Office [address] [place], [place] [address]Ant [address] [place] [id number] 8 11/28/2020 16:37:31 11/28/2020 20:42:54 Hypertensive disorder 86605019 I10 At target Skin lesion 64809125 L98 .9 Will have this removed. [id number] MD PRIME LACI Winslow [facility] Office [address] [place], [place] [address]Ant [address] 8 01/12/2021 13:57:46 01/12/2021 15:04:15 Essential tremor 032309194 G25.0 Currently on pramipexol e. She went to neurologis t yesterday and was invreased to 3 times a day and 250 Gastroesop hageal reflux disease 345236049 K21.9 Well-contr olled on PPI currently Hyperlipidemia 57763809 E78.5 Start crestor Hypertensive disorder 38 397977 I10 At target Seizure disorder 7956326 02 G40.909 Currently on Lamictal from previous brain surgery Benign meningioma 346920 006 D32.9 Continue with her antiseizur e medicine. Pain of ear 099522096 H9 2.09 Concern of a recurrent meningioma . Will check a CT to r/o that as a source of the pain. Obstructiv e sleep apnea syndrome 77112668 G47.33 Has ANUSHA. She has not been using her CPAP because it bugs her. [id number] MD PRIME LACI Winslow [facility] [address] [place], [place] [address]Ant [address] [place] [address] 01/23/2021 13:33:20 01/23/2021 14:20:59 Gastroesophageal reflux disease 398564232 K21.9 Well-contr olled on PPI currently Hyperlipidemia 89030153 E78.5 Start crestor Hypertensive disorder 38 772358 I10 At target Hypothyroidism 76161675 E03.9 TSH at target Seizure disorder 5685695 02 G40.909 Currently on Lamictal from previous brain surgery Active or passive immunization 539020121 Z23 update COVID vax Obstructiv e sleep apnea syndrome 57250051 G47.33 Has ANUSHA. She has not been using her CPAP because it bugs her. [id number] MD PRIME LACI Winslow [facility] [address] [place] [address] [address] [place] [address] 02/06/2021 14:31:32 02/06/2021 15:27:11 Benign meningioma 818070986 D32.9 Continue with her antiseizur e medicine. Depressive disorder 0808 9007 F32.9 She fell onto depression after her daughter from opiate overdose. She is going to continue with paroxetine which she needs a refill for today. Gastroesop hageal reflux disease 423345930 K21.9 Well-contr olled on PPI currently Hyperlipidemia 79221046 E78.5 Start crestor Hypertensive disorder 38 455355 I10 At target Hypothyroidism 65592324 E03.9 TSH at target Seizure disorder 3624064 02 G40.909 Currently on Lamictal from previous brain surgery Screening mammography 24 728205 Z12.31 declined Colorectal cancer screening not done 7844681459 100 Z53.9 UTD last lower endo 2 years ago. Active or passive immunization 044589103 Z23 update COVID vax and flu 7735 MD PRIME LACI Miles [facility] [address] [place], [place] [address]Ant [address] [place] [address] 04/03/2021 13:59:39 04/03/2021 15:33:18 Adult health examination 539015790 Z00.00 Patient here for Medicare Annual Wellness visit. See above discussion Advance care planning 71 2286286 Z71.89 I have discussed with patient/PO A [...] patient is Full Code. Depression screening 171 752565 Z13.31 Negative PHQ9, re-assess annually Screening for cardiovascular system disease 308650937 Z13.6 Reviewed with patient BP trend in the office, discussed about aspirin use, healthy lifestyle modificati ons, mediterran an or DASH diet, low salt <2g daily. Time spent counseling 10 min. Screening for alcohol abuse 258544614 Z13.39 Alcohol screening performed and is negative for substance abuse. I did ask her to cut down [id number] MD PRIME LACI Winslow [facility] [address] [facility] [address] [place] [address] 05/15/2021 14:21:23 05/15/2021 15:19:01 Fatigue 14674385 R53.83 C/O fatigue stop am primidone temporaril y Obstructiv e sleep apnea syndrome 33627732 G47.33 She is using the Bipap and sleeps but it is uncomforta ble. Refer to sleep med here. 44521 MD PRIME LACI Winslow [facility] [address] [facility] [address] [place] [address] 06/07/2021 16:27:01 06/19/2021 17:11:34 Depressive disorder 68411633 F32.9 Currently on paroxetine . She is doing well on this, sleep is good. Essential tremor 0572643 09 G25.0 Currently on pramipexol e. Gastroesop hageal reflux disease 039090469 K21.9 Well-contr olled on PPI currently Hyperlipidemia 29594611 E78.5 On crestor. Diet discussed at length with patient. She is not able to exercise because her knee pain and balance problem. Hypertensive disorder 38 013334 I10 Patient is normotensi ve at home. Will not make any changes to her medication today. Hypothyroidism 32781435 E03.9 Last TSH was normal. On synthroid. Seizure disorder 4053098 02 G40.909 Currently on Lamictal from previous brain surgery History of total knee arthroplasty 5350733956 105 Z96.659 Patient is complainin g of having balance issues since her surgery. We will send her to physical therapy. Obstructiv e sleep apnea syndrome 49272530 G47.33 She is using the Bipap about 5 hours at night. Benign meningioma 268923 006 D32.9 Continue with her antiseizur e medicine. Her meningioma was removed without any difficulty and she has not had a seizure. Type 2 olivia betes mellitus 10511682 E11.9 Excellent control based on her last hemoglobin A1c. Her hemoglobin A1c was 5.6. 17103 MD PRIME LACI Winslow [facility] [address] [place], [place] [address]Ant [address] [place] [address] 09/20/2021 15:15:16 09/20/2021 16:43:57 Essential tremor 108378822 G25.0 Currently on pramipexol e. Benign meningioma 086375 006 D32.9 Having an MRI needs lab Hyperlipidemia 26826473 E78.5 On crestor. Diet discussed at length with patient. She is not able to exercise because her knee pain and balance problem. Hypertensive disorder 38 452003 I10 Patient is normotensi ve at home. Will not make any changes to her medication today. Hypothyroidism 50770157 E03.9 Last TSH was normal. On synthroid. Seizure disorder 0674570 02 G40.909 Currently on Lamictal from previous brain surgery Candidiasis of vagina 72 732134 B37.3 79736 MD PRIME LACI Winslow [facility] [address] [place], [place] [address]Ant [address] [place] [address] 10/05/2021 13:19:20 10/05/2021 14:02:29 Administration of SARS-CoV-2 antigen vaccine 900528825 Z23 1st booster administer ed to patient. She can take tylenol as needed for discomfort . Candidiasis of vagina 72 937393 B37.3 Patient has been using Dial soap in her vagina. Skin is very dry and red. There is a thin odorless discharge. I recommende d that she stops using soap or use some kind of vaginal soap like summer's sandeep. Also start boric acid suppositor ies to help restore the pH. Intertrigo 92642641 L30. 4 Start power. Patient is very clean but she has a pendulous abdomen. Start nystatin powder. 36769 MD PRIME LACI Winslow [facility] [address] [place], [place] [address]Ant [address] [place] [address] 10/22/2021 16:17:52 10/22/2021 17:02:37 Dyspnea 287427105 R06.00 Patient has been experienci ng SOB with ambulation . [facility] and was told her heart was ok, neverthele ss she seems winded after walking short distance. Candidiasis of vagina 72 401752 B37.3 Start using Boric Acid, no soap, and start fluconazol e for 6 months once per week. Hypertensive disorder 38 420563 I10 BP slightly above goal of < 130/90. Patient is normotensi ve at home. No changes to medication . 51611 MD PRIME LACI Miles [facility] [address] [place], [place] [address]Ant [address] [place] [address] 12/26/2021 12:57:22 12/26/2021 13:15:03 Administration of influenza vaccine 85391869 Z23 MD PRIME LACI Winslow [facility] [address] [place], [place] [address]Ant [address] [place] [address] 01/30/2022 14:10:45 01/30/2022 15:24:44 Fatigue 86643919 R53.83 Patient was advised to use a CPAP pillow to improve sleep quality. Paresthesia 16932912 R20 .2 Patient will start vitamin B12 and folate supplement . Probable hypoventil ation but will start B12 and folate. Gastroesop hageal reflux disease 476467248 K21.9 Well-contr olled on PPI currently. Depressive disorder 3548 9007 F32.9 Currently on paroxetine . She is doing well on this. Hypertensive disorder 38 967607 I10 Blood pressure at target. Active or passive immunization 821429507 Z23 Flu vaccine is up-to-date Screening for malignant neoplasm of breast 493585118 Z12.39 Order mammogram 52012 MD PRIME LACI Winslow [facility] [address] [facility] [address] [place] [address] 02/20/2022 14:26:28 02/20/2022 14:55:46 Acute left otitis media 377999670 H66.92 Start abx Hypertensive disorder 38 813766 I10 Increase coreg to 6.25 mg po bid Hyperlipidemia 48084543 E78.5 On crestor. Diet discussed at length with patient. She is not able to exercise because her knee pain and balance problem. 19040 TEJINDER Reed MD [facility]5 [facility] [address] [place] [address] 04/23/2022 12:59:55 04/23/2022 13:26:13 Adult health examination 285358351 Z00.00 *Patient was screened for depression using [...] well an immunizati on schedule. Memory impairment 622157 006 R41.3 Patient has concerns about her [...] . PHQ-9 score is 6 Morbid obesity 243820759 E66.01 Patient to come back to discuss weight loss. 06725 MD PRIME LACI Miles [facility] [address] [place] [address] [address] [place] [address] 07/01/2022 13:44:03 07/01/2022 14:20:54 Acute bronchitis 30929693 J20.9 Acute, stable. Start treatment as below and continue supportive care at home. Patient was advised to RTC if symptoms worsen or do not improve in the next 3 days. Benign meningioma 682431 006 D32.9 Chronic, stable. She will continue with her antiseizur e medicine. Her meningioma was removed without any difficulty and she has not had a seizure. 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 Reviewed labs, last Hgb A1c was 5.6. Well-contr olled on current regimen. Seizure disorder 0364907 02 G40.909 Chronic, stable. She will continue with her antiseizur e medicine. Her meningioma was removed without any difficulty and she has not had a seizure. 99517 MD PRIME LACI Miles [facility] [address] [place], [place] [address]Ant [address] [place] [address] 07/15/2022 13:59:28 07/15/2022 14:30:58 Immunization due 960137199 Z28.39 Administer ed shingles vaccine. Polyuria 64887369 R35.89 New problem to us. She c/o of increased urination without drinking more fluids. She denies any dysuria, back pain, fever, chills, or any other associated symptoms at this time. Reviewed labs, last Hgb A1c was 5.6 and she does not take any diabetes medication . Ordered lab work. Hyperlipidemia 14190789 E78.5 Chronic, stable. She is currently on Rosuvastat in. Ordered lab work. Hypothyroidism 96736150 E03.9 Chronic, stable. She is currently on Levothyrox ine 25 mcg. Ordered lab work. Essential tremor 1383413 09 G25.0 Chronic, stable. She reports she will be taking part in a clinical research study w/ [employer] soon for her essential tremors. Follows w/ neurologis t. 19940 FRANDY WILLIAMSON [facility] [address] [place] [address] [address] [place] [address] 09/25/2022 13:54:12 09/25/2022 14:30:37 Mass of left breast 0716887373 1388802 N63.20 Patient c/o a lump under her left axilla which she felt 4 weeks ago but can no longer feel herself. She denies any pain, redness, drainage, or other symptoms with this. I am unable to palpate the lesion she is referring to on exam today.Refe rred to [facility] for breast cancer screening. 12921 FRANDY WILLIAMSON [facility] [address] [place], [place] [address]ROMAN [address] [place] [address] 10/11/2022 13:01:33 10/11/2022 13:29:47 Viral screening 788296554 Z11.52 Rapid COVID test negative, discussed results with patient. Acute bronchitis 1482215 2 J20.9 New problem. Start oral antibiotic s and albuterol inhaler and continue Benzonatat e/supporti ve care.Patie nt was advised to RTC if symptoms worsen or do not improve with treatment. 24637 TEJINDER Reed [facility] [address] [place] [address] [address] [place] [address] 12/18/2022 13:34:59 12/18/2022 14:36:00 Essential tremor 946522122 G25.[address] Steel in town. She should also follow with her neurologis t. Obesity 563179067 E66.9 We discussed about a weight loss [...] a week.Will come back for blood work. 88333 MD PRIME LACI [facility] [address] [place] [address] [address] [place] [address] 12/27/2022 14:40:52 12/27/2022 15:00:50 Active or passive immunization 850807433 Z23 Flu vaccine is up-to-date 47697 MD PRIME LACI Winslow [facility] Office [address] [place] [address] [address] [place] [address] 05/01/2023 13:17:37 05/01/2023 13:52:55 Hospital inpatient stay within past 30 days 1187964160 106 Z76.89 Admitted for dizziness and doing well now this has resolved. Essential tremor 5684467 09 G25.0 Currently on pramipexol e. This is working Benign meningioma 598066 006 D32.9 On lamictal for sz prophylaxi s Hyperlipidemia 73788252 E78.5 On crestor. Diet discussed at length with patient. She is not able to exercise because her knee pain and balance problem. Hypertensive disorder 38 753827 I10 At target Hypothyroidism 50876771 E03.9 Last TSH was normal. Seizure disorder 1913583 02 G40.909 Currently on Lamictal from previous brain surgery 37421 MD PRIME LACI Winslow [facility] Office [address] [place] [address] [facility] [address] [place] [address] 06/03/2023 12:58:20 06/03/2023 13:46:56 Adult health examination 994951927 Z00.00 Z13.31 Z71.89 Z13.39 Z13.6 A preventati [...] of baby aspirin. Advance care planning 71 9692602 Z71.89 Advance care planning was addressed during [...] minutes. Patient code status updated. Benign meningioma 164224 006 D32.9 On lamictal for sz prophylaxi s Depressive disorder 3548 9007 F32.9 Currently on paroxetine . She is doing well on this. Hyperlipidemia 15924104 E78.5 On crestor. Diet discussed at length with patient. She is not able to exercise because her knee pain and balance problem. Hypertensive disorder 38 803949 I10 At target Hypothyroidism 07686466 E03.9 Last TSH was normal. Seizure disorder 9816327 02 G40.909 Currently on Lamictal from previous brain surgery Prediabetes 981557075 R7 3.03 Check hgba1c Screening for malignant neoplasm of breast 498850193 Z12.39 Order mammogram for September Screening for malignant neoplasm of colon 406810495 Z12.11 order cologuard Screening for osteoporosis 625731295 Z13.820 Order Dexa Active or passive immunization 004201861 Z23 Flu vaccine is up-to-date 90616 MD PRIME LACI Winslow [facility] [address] [place] [address] [address] [place] [address] 07/24/2023 12:48:18 07/24/2023 13:47:36 Congestive heart failure 20967616 I50.9 ImprovedPl anning to see Dr. Wallace in the next week. Hyperlipidemia 52396733 E78.5 On crestor. Diet discussed at length with patient. She is not able to exercise because her knee pain and balance problem. Hypertensive disorder 38 604811 I10 At target Hypothyroidism 58262473 E03.9 Last TSH was normal. History of sepsis 014527 5482 26268 Z86.19 Likely originated for an invasive procedure she had cystoscopy .She is doing well now no SOB. Morbid obesity 764153214 E66.01 diet and exercise d/w pt. Obstructiv e sleep apnea syndrome 83867753 G47.33 She is using the Bipap about 5 hours at night. Vaginitis 63381981 N76.0 01846 MD PRIME CRISTY Winslow [facility] [address] [place], [place] [address]Ant [address] [place] [address] 09/22/2023 15:44:50 09/22/2023 16:50:00 Hypertensive disorder 93966286 I10 At target Hyperlipidemia 05870865 E78.5 On crestor. Diet discussed at length with patient. She is not able to exercise because her knee pain and balance problem. Seizure disorder 6869726 02 G40.909 Currently on Lamictal from previous brain surgery Morbid obesity 834179564 E66.01 Diet and exercise d/w pt. Hypothyroidism 42191395 E03.9 Last TSH was normal. Depressive disorder 3548 9007 F32.9 Currently on paroxetine . She is doing well on this. Prediabetes 585207733 R7 3.03 A1c 5.9 Diet and exercise d/[place]. [address] MD PRIME LACI Miles [facility] [address] [place] [address] [address] [place] [address] 10/14/2023 14:51:08 10/14/2023 15:46:24 Pruritic rash 37271989 L28.2 NEW problem Back of neck.- Plan: Prescribe topical steroid cream for the neck rash, to be applied twice daily. Advise the patient to follow up if the rash does not improve within a few days. Seborrheic keratosis 394 817952 L82.1 NEW problem Plan: Order steroid solution for symptom relief. Instruct the patient to apply the solution BID and to follow up if symptoms do not improve. 80620 MD PRIME LACI Winslow [facility] [address] [place] [address] [address] [place] [address] 10/23/2023 13:50:30 10/23/2023 15:26:02 Essential tremor 037141164 G25.0 Currently on pramipexol e. This is working Hyperlipidemia 18777177 E78.5 On crestor. Diet discussed at length with patient. She is not able to exercise because her knee pain and balance problem. Hypertensive disorder 38 971059 I10 At target Hypothyroidism 98995646 E03.9 Last TSH was normal. Morbid obesity 871496645 E66.01 Diet and exercise d/w pt. Seizure disorder 7915163 02 G40.909 Currently on Lamictal from previous brain surgery Congestive heart failure 14102132 I50.9 ImprovedPl anning to see Dr. Wallace in the next week. Screening for malignant neoplasm of breast 814761922 Z12.39 Order mammogram for September Screening for malignant neoplasm of colon 108364391 Z12.11 Cologuard neg Screening for osteoporosis 629301473 Z13.820 Osteopenia cont with supplement al calcium Seborrheic dermatitis of scalp 224452315 L21.0 Improved Acute cystitis 29756561 N30.01 Culture urine Atrophic vaginitis 72035 000 N95.2 estrace Bacterial vaginosis 4197 34211 N76.0 flagyl Candidiasis of vagina 72 757061 B37.31 nystatin 55835 Noe Camp MD PRIME MD [facility]ERT [facility]-Main Office [address] [place] [address] [address] 11/19/2023 12:51:09 11/19/2023 13:22:09 Depressive disorder 10446837 F32.9 Currently on paroxetine . She is doing well on this. Essential tremor 5011596 09 G25.0 Currently on pramipexol e. This is working Hyperlipidemia 96301230 E78.5 On crestor. Diet discussed at length with patient. She is not able to exercise because her knee pain and balance problem. Hypertensive disorder 38 931413 I10 At target Hypothyroidism 46677493 E03.9 Last TSH was normal. Morbid obesity 842583712 E66.01 Diet and exercise d/w pt.Cont with tirzepetid e 2.5 sc q weekm Type 2 olivia betes mellitus 29928504 E11.9 Excellent control based on her last hemoglobin A1c. Her hemoglobin A1c was 5.6. Atrophic vaginitis 70353 000 N95.2 Stopped the estradiol and the bleeding has resolved. Overactive urinary bladder 334796840 N32.81 Start oxybutinin 70763 MD PRIME GUSTAVO Winslow [facility] Office [facility] [facility] [address] [place] [address] 12/22/2023 12:59:14 12/22/2023 13:24:21 Assisted living facility patient 2108212810 2057359 Z76.89 [facility] Hy[facility] 38 322451 I10 At target Seizure disorder 6326606 02 G40.909 Currently on Lamictal from previous brain surgery Obstructiv e sleep apnea syndrome 01849451 G47.33 She is using the Bipap about 5 hours at night. Type 2 olivia betes mellitus 67021173 E11.9 Excellent control based on her last hemoglobin A1c. Her hemoglobin A1c was 5.6. Intentiona l weight loss 877963441 R63.8 increase to 5 mg Morbid obesity 616022126 E66.01 Diet and exercise d/w pt.Cont with [...] 09/22/2023 1 [place] Silvana Shahid Payam [id number] Silvana Shahid Payam 09/22/2023 2 [employer] OPTIONS (MEDICARE SUPPLEMENT) Silvana Pringlezier Payam [id number] Silvana Shahid Payam 10/14/2023 1 [place] Silvana Shahid Payam [id number] Silvana Zehra Payam 10/14/2023 2 [employer] OPTIONS (MEDICARE SUPPLEMENT) Silvana Pringlezier Payam [id number] Silvana Zehra Payam 10/23/2023 1 [place] Silvana Shahid Payam [id number] Silvana Zehra Payam 10/23/2023 2 [employer] OPTIONS (MEDICARE SUPPLEMENT) Silvana Shahid Villanueva Payam [id number] Silvana Zehra Payam 11/19/2023 1 [place] Silvana Shahid Payam [id number] Silvana Zehra Payam 11/19/2023 2 [employer] OPTIONS (MEDICARE SUPPLEMENT) Silvana Hare [id number] Silvana Hare 12/22/2023 1 [place] Silvana Hare [id number] Silvana Hare 12/22/2023 2 [facility] HEALTHCARE OPTIONS (MEDICARE SUPPLEMENT) Silvana Hare [id number] Silvana Hare Notes Date Note Type Note [...] commit to it. Noe Camp MD [address], [place], [address], [facility] 09/22/2023 16:46:28 10/14/2023 text/html Chief Complaint: The [...] both shingles vaccinations. Isauro Rao MD [address], [place], [address], [facility] - [facility] 10/20/2023 07:23:19 10/23/2023 text/html he patient, who [...] increased bleeding, possibly external. Noe Camp MD [address], [place], [address], [facility] - [facility] 10/23/2023 15:21:25 11/19/2023 text/html The patient repo [...] which has calmed down after following their chip bin operator's advice to limit its use to two [...] continuing the tirzepatide medication. Noe Camp MD [facility] [address], [place], [address], [facility] - [facility] 11/19/2023 13:20:48 12/22/2023 text/html To thanh Tejeda [facility] eldail Noe Camp MD [facility] [facility] [address], [place], [address], [facility] - [facility] 12/22/2023 13:23:12 OBGyn Episode No OBEpisode recorded.
--- OUTSIDE RECORDS SUMMARY | 2024-06-10 15:21 | XMS_ITS | Data Portability ---
Author Organization [place] - [facility] [place], [id number] Address [address] [place] [id number] Care Team Providers Care Broadcast Correspondent Name Role Phone MARILYN JAIN OTHER [phone] RADHA DUMONT Primary Care Provider [phone] ANN-MARIE BLANCO Founder [phone] Assessment Encounter Date Assessment Date Assessment LastModified [...] impairment, return in 3 months for reevaluation Not available 12/22/2020 15:13:31 11/19/2021 11/19/2021 PT is a 79 y/o F with PMHx sig for GERD, colon polyp, HLP, meningioma- s/p brain sx, seizures and osteoporosis who presents for f/u of multiple GI complaints. [email or web address] Not available 11/19/2021 09:50:24 01/20/2023 01/20/2023 PT [...] mg tablet 2022 023 [email or web address] [id number] [address], [address] [place], [address], 16:56:38 primidone 50 mg tablet 2020 [facility] [place] [address] [facility] [employer], [address] [place], [address], 14:55:36 primidone 250 mg tablet 2020 [facility] [place] [address] [facility] [employer], [address] [place], [address], 14:55:37 lamotrigin e 25 mg tablet 2020 [facility] [place] [address] [facility] [employer], [address] [place], [address], 14:55:37 venlafaxin e 75 mg tablet 2020 [facility] [place] [address] [facility] [employer], [address] [place], [address], 14:55:37 Patient TargetsNo targets recorded. Patient Instructions Encounter Date Encounter Id Patient Instructions Last Modified By Organization Details Last Modified Time 11/19/2021 [id number] diarrhea: care instructions [email or web address] Not available 11/19/2021 10:02:40 11/29/2022 [id number] diarrhea: care instructions Not available 11/29/2022 15:51:41 Reason for Referral None Reported. Results Created Date Observation Date Name Description Value Unit Range Abnormal Flag Note LastModifiedBy Organization Detail LastModifiedTime 12/26/19 22 12/25/2021 DEXA, axial skele ton Physic [facility] [place] Rylie t: AZALEA JACKSON [id number] Sex: Female Locati on: [facility] Orderi ng Physic arlene: SOCORRO GOMES DISPLAY SCREEN FABRICATOR Bone Densit y ACCESS ION EXAM DATE/T [...] Artemio Pena MD On 2021 16:21: 06; -[facility] [id number] Final Signed by: ARTEMIO PENA MD Signed (Elect demetrio queen): 2021 04:21 pm EDT [id number] - Radiology Scheduling [address] [facility], [place], [address], 12/31/2021 15:34:33 Result Notes None recorded. Problems Name Problem SNOMED Code Status Onset Date Resolution Date Notes Provider Name and Address Organization Details Recorded Time Hypercholeste rolemia 66052096 Active Not Available [facility] 12:50:53 Migraine 73397081 Active Not Available [facility] 12:50:53 Essential hypertension 26490811 Active Not Available [facility] 12:50:52 Tubular adenoma 995272884 Active Not Available [facility] 12:50:53 Hyperglycemia 06989091 Active Not Available [facility] 12:50:52 Gastroesophag eal reflux disease 700568056 Active Not Available [facility] 12:50:53 Epigastric pain 46760178 Active Not Available [facility] 10/16/202 1 12:50:53 Obesity 397652737 Active Not Available [facility] 12:50:52 Diarrhea 21942556 Active Not Available [facility] 12:50:53 Depressive disorder 10948946 Active Not Available [facility] 12:50:52 Anxiety disorder 607670136 Active Not Available [facility] 12:50:52 Generalized abdominal pain 944054892 Active Not Available [facility] 12:50:52 Osteoporosis 13179064 Active Not Available [facility] 12:50:52 Tremor 71258788 Active 2017 Not Available [facility] 12:50:52 Insomnia 161873442 Active 2017 Not Available [facility] 12:50:53 Vitamin D deficiency 75110767 Active Not Available [facility] 12:50:52 Megaloblastic anemia due to vitamin B>12< deficiency 36488906 Active Not Available [facility] 12:50:52 Senile osteoporosis 71110141 Active Not Available [facility] 12:50:52 Heart murmur 15124733 Active Not Available [facility] 12:50:52 Thready pulse 52070535 Active Not Available [facility] 12:50:52 Edema 749783555 Active Not Available [facility] 12:50:52 Morbid obesity 416659757 Active Not Available [facility] 12:50:52 Joint pain 97780280 Active Not Available [facility] 12:50:53 Jaime thyroiditis 70080351 Active Not Available [facility] 12:50:53 Hyperlipidemi a 28029239 Active Not Available [facility] 12:50:53 Body mass index 30+ - obesity 185641918 Active Not Available [facility] 12:50:53 Malaise and fatigue 035772222 Active Not Available [facility] 12:50:52 Synovial cyst of popliteal space Active Not Available [facility] 10/16/202 1 12:50:53 Cough 06080032 Active Not Available [facility] 1 12:50:53 Seizure disorder 671495104 Active 2017 Not Available [facility] 1 12:50:53 Disorder of vitamin B12 586362174 Active 2018 Not Available [facility] 1 12:50:52 Memory impairment 588332335 Active 2020 Not Available [facility] 12:50:53 Fatigue 79390921 Active 2021 SOCORROCRISSY PRATTFRANDY Devries [address] [place] [address], [address] , [address] 2 09:49:59 Polyp of colon 99937449 Active 2021 SOCORRO PRATTJaycob [address], [address] , [address] 2 09:58:37 Abdominal bloating 410979701 Active 2021 SOCORRO PRATTJaycob CLEAN ROOM OPERATOR [address] [place] [address], [address] , [address] 2 10:11:09 Incontinence of feces 46092273 Active 2021 SOCORRO PRATTJaycob [address], [address] , [address] 2 10:15:09 Dysphagia 18350910 Active 2021 SOCORRO JAZMINFRANDY Devries [address] [place] [address], [address] , [address] 2 10:15:09 Gastroesophag eal reflux disease without esophagitis 691899542 Active 2022 ANN-MARIE BLANCO MD [address] [place] [address], [address] , [address] 3 14:26:09 Problem Notes None recorded. Procedures Surgical History Date Name Laterality Status Provider Name and Address Organization Details Recorded Time 11/30/19 20 Colonoscopy completed Allison Gillespie RN [facility] [address] 12/14/2019 16:22:28 05/01/19 15 Orthopaedic Surgery completed Allison Gillespie RN [facility] [address] 04/24/2015 10:57:09 02/25/20 14 Date of Last Pap Smear completed Martha Vaughn RN Clinic Office [address] 04/01/2014 10:44:02 12/23/19 14 Date of Last Mammogram completed Martha Vaughn RN [facility] Office [address] 02/24/2014 11:22:55 08/23/19 12 Colonoscopy completed Anastasiya Yusuf LPN [address] 01/22/2016 09:52:10 Cholecystectomy completed Gloria Jean-Pierre [address] 12/14/2013 14:45:18 Appendectomy completed Gloria Jean-Pierre [address] 12/14/2013 14:45:18 Other completed Gloria Jean-Pierre [address] 12/14/2013 14:45:18 Other completed Gloria Jean-Pierre [address] 12/14/2013 14:50:14 Appendectomy completed Bernardo Danae [address] 01/24/2014 09:07:08 Cholecystectomy completed Bernardo Danae [address] 01/24/2014 09:07:08 Breast Surgery completed Bernardo Danae [address] 01/24/2014 09:07:08 Other completed Bernardo Danae [address] 01/24/2014 09:07:08 Other completed Bernardo Danae [address] 01/24/2014 09:07:08 Tubal Ligation completed Martha Vaughn RN Clinic Office [address] 02/24/2014 11:22:55 Other completed Martha Vaughn RN Clinic Office [address] 02/24/2014 11:22:55 breast augmentation completed Jayden Tapia RN Clinic Office [address] 02/24/2014 11:22:55 Endometrial Ablation completed Martha Vaughn RN Clinic Office [address] 02/24/2014 11:22:55 Imaging Results Imaging Date Name Status LastModified by [facility] Details LastModified Time 12/25/2021 DEXA, axial skeleton completed [address] - Radiology Scheduling [address] [facility], [place], [address], 12/31/2021 15:34:33 Procedure Notes None recorded. Medical Equipment None Reported. Allergies Allergen ID Allergen Name Allergen Category Reaction Reaction Severity Criticality Documentation Date Start Date Code Code System Note Provider Name and Address Organization Details Recorded Time 497546 Ceclor medicatio n Not available Not available Not available 12/14/2013 5 RxNorm Gloria Morejon [address] 4 14:50:14 [id number] cefaclor medicatio n myalgias (muscle pain) Not available Not available 01/17/20142175 RxNorm Bernardo Fink [address] 4 09:07:08 194030 Cipro medicatio n Not available Not available Not available 02/24/2014 3 RxNorm Martha Vaughn RN Clinic Office [address] 4 11:22:55 Medications Name Sig Start [...] completed Not Available Not Available Not Available [facility] 04/24 completed Not Available Not Available Not [...] Available Not Available Not Available Fluzone High-Dose 0542-4375 (PF) 180 mcg/0.5 mL intramuscu lar syringe TO BE ADMINIST ERED BY PHARMACI ST FOR IMMUNIZA TION 08/05 completed Not Available Not Available Not Available Fluzone High-Dose 7988-2392 (PF) 180 mcg/0.5 mL intramuscu lar syringe [...] Updated DateTime 1 162.56 cm 37.8 kg/m2 18426.3 2 g 85 /min 95 % 95 % 132 mm[Hg] 90 mm[Hg] Harika Palafox, Retail Seasonal Specialist Cert [address] 1 14:42:04 Date Recorded Body height Body mass index (BMI) Body weight Heart rate Respiratory rate Oxygen saturation Oxygen saturation in Arterial blood by Pulse oximetry Pain severity - 0-10 verbal numeric rating [Score] - Reported Systolic blood pressure Diastolic blood pressure Provider Name and Address Organization Details Last Updated DateTime 2 162.56 cm 41.2 kg/m2 641362. 17 g 88 /min 16 /min 98 % 98 % 0 122 mm[Hg] 85 mm[Hg] Allison Gillespie RN [facility] Office [address] 2 09:43:50 Date Recorded Body weight Heart rate Respiratory rate Oxygen saturation Oxygen saturation in Arterial blood by Pulse oximetry Body mass index (BMI) Body height Pain severity - 0-10 verbal numeric rating [Score] - Reported Systolic blood pressure Diastolic blood pressure Provider Name and Address Organization Details Last Updated DateTime 3 078424. 21 g 87 /min 16 /min 98 % 98 % 40.3 kg/m2 162.56 cm 1 128 mm[Hg] 83 mm[Hg] Allison Gillespie RN Clinic Office [address] 3 14:30:54 Date Recorded Body height [...] 98 % 98 % 0 41.2 kg/m2 664792. 17 g 128 mm[Hg] 83 mm[Hg] Allison Gillespie RN Clinic Office [address] 3 14:07:00 Date Recorded Body height [...] 98 % 98 % 0 42.9 kg/m2 287371. 09 g 122 mm[Hg] 82 mm[Hg] Allison Gillespie RN [facility] Office [address] 4 14:30:54 Social History Question Answer Notes LastModified by Organizat ion Details LastModified Time Tobacco Smoking Status Former Smoker cigarswatit 's Allison Gillespie RN [facility] Office [address] 01/17/2014 15:00:38 What Is Your Level Of Alcohol Consumption? Occasional 4-5 Wine Q Week [email or web address] Information not available 01/17/2014 What Is Your Level Of Caffeine Consumption? Moderate 2 Coffe Qd [email or web address] Information not available 01/17/2014 How Much Tobacco [...] available 2015 16:26:31 Medical History Condition Response Anxiety Disorder Y Gastrointestinal Problems Y Other Y Headaches or Migraines Y High Cholesterol Y Colon Polyps Y GERD/Reflux Y Abnormal Pap Smear N Colonoscopy Y [...] completed Allison Gillespie RN Clinic Office null, [address] 01/10/2020 15:56:06 Influenza, high-dose, trivalent, PF 7 completed Allison Gillespie RN Clinic Office null, [address] 12/01/2019 15:38:31 Influenza, split virus, trivalent, preservative 8 rox Gillespie RN Clinic Office null, [address] 12/01/2019 15:38:31 Influenza, split virus, trivalent, preservative 4 completed Allison Gillespie RN Clinic Office null, [address] 12/01/2019 15:38:31 Influenza, split virus, trivalent, preservative 2 rox Gillespie RN Clinic Office null, [address] 12/01/2019 15:38:31 Pneumococcal conjugate PCV 13 7 rox Gillespie RN Clinic Office null, [address] 12/01/2019 15:38:31 Influenza, split virus, trivalent, preservative 0 rox Gillespie RN Clinic Office null, [address] 12/01/2019 15:38:31 Influenza, split virus, trivalent, preservative 1 rox Gillespie RN Clinic Office null, [address] 12/01/2019 15:38:31 Influenza, split virus, trivalent, preservative 9 completed Allison Gillespie RN Clinic Office null, [address] 12/01/2019 15:38:31 Influenza, high-dose, trivalent, PF 8 completed Harika Palafox Retail Seasonal Specialist Cert null, [address] 12/22/2020 14:42:16 pneumococcal polysaccharide PPV23 0 completed Harika Palafox Retail Seasonal Specialist Cert null, [address] 12/22/2020 14:42:16 zoster live 3 completed Harika Palafox Retail Seasonal Specialist Cert null, [address] 12/22/2020 14:42:16 Influenza, high-dose, trivalent, PF 4 completed Ly Jude, RN null, [address] 03/31/2017 15:28:41 pneumococcal polysaccharide PPV23 0 completed Ly Roque, RN null, [address] 12/22/2017 09:52:35 Influenza, split virus, quadrivalent, preservative 6 completed Ly Roque, RN null, [address] 03/31/2017 15:28:41 pneumococcal polysaccharide PPV23 1 completed Ly Roque, RN null, [address] 03/31/2017 15:28:41 zoster live 3 completed Ly Roque, RN null, [address] 12/22/2017 09:52:36 Influenza, high-dose, trivalent, PF 5 completed Ly Roque, RN null, [address] 12/22/2017 09:52:35 Influenza, high-dose, trivalent, PF 4 completed Harika Palafox Retail Seasonal Specialist Cert null, [address] 12/22/2020 14:42:16 Influenza, split virus, quadrivalent, preservative 7 completed Ly Roque, RN null, [address] 12/22/2017 09:52:35 Past Encounters Encounter ID Performer Location Encounter Start Date Encounter Closed Date Diagnosis/Indication Diagnosis SNOMED-CT Code Diagnosis ICD10 Code Diagnosis Note [id number] Gloria Morejon [facility] [address] [place] [address] 12/28/2013 11:02:14 12/28/2013 14:06:46 Dyspnea on exertion 28853518 because of her symptoms and her previous EKG having nonspecifi c ST-T changes (abnormal ekg), a stress test will be ordered. She has significan t osteoarthr itis of the knees and back pain and cannot do the treadmill. Because of this an adenosine stress test will be ordered. I suspect that she is also deconditio isela as well. Chronic back pain 560131144 she will followup with pain management . I explained that control of her back pain will be an essential part of her weight reduction program. We need to have her working with a new product trainer in order to help her lose weight. A referral to a new product trainer was given. Essential hypertension 82685637 her blood pressures have been stable. She will work on weight reduction program. Blood pressure goals were given. Hypercholesterolemia 14895909 her lipid profile goals were discussed. Her lipid profile will be rechecked. She will work on the above weight reduction program. Hyperglycemia 83814611 h er A1c will be rechecked. Ophthalmol ogy followup and proper foot care will be emphasized . Fatigue 99481902 the abo ve stress test will be ordered. A reconditio chuck program will be needed. Her labs will also include a CBC, CMP, TSH and B12 level. Vitamin D deficiency 00349619 her level will be checked to make sure that she is above 40 Megaloblas tic anemia due to vitamin B>12< deficiency 02857862 her level will be checked to make sure that she is above 658 [id number] [facility] 42 GI [address] [place] [address] 01/17/2014 13:59:07 01/17/2014 15:38:32 Gastroesophageal reflux disease 251131248 Restarting Omeprazole 40 mg p.o. q. a.m. Also instructed patient on GERD lifestyle modificati ons. Pending response may require EGD to rule out GERD complicati ons. Patient understand s and agrees. Epigastric pain 24069968 Likely secondary to GERD however cannot rule out possible component of functional dyspepsia. Await response to restart of Omeprazole . Also instructed patient on GERD lifestyle modificati ons. As above, pending response may require EGD to rule out GERD complicati ons. Patient understand s and agrees. Obesity 804805300 S/p ~1 5 lb wt gain in [...] sx. Patient understand s and agrees. Diarrhea 92537901 Etiolo gy uncertain. Should rule out infectious [...] lab results. History of polyp of colon 696110243 Pt s/p colonoscop y sig for TA in 2011. Risks of missed polyps explained to pt. For repeat colonoscop y in 2017. Pt underastan ds and agrees. [id number] Nina Martinez [employer] [address] [facility] [address] [place] [address] 02/24/2014 10:59:58 02/24/2014 11:44:28 Screening for malignant neoplasm of cervix 173837674 Anxiety disorder 417359240 Depressive disorder 81856233 [id number] DIEGO LAY MD [facility] [employer] [address] [facility] [address] [place] [address] 04/01/2014 10:37:51 04/01/2014 11:20:38 Depressive disorder 87133941 Anxiety disorder 167754828 [id number] Gregoria He [facility] [address] [place] [address] 04/11/2014 10:59:53 04/11/2014 11:44:59 Migraine 30200234 Essential hypertension 93536491 Fatigue 15878224 Depressive disorder 97283519 Anxiety disorder 777574389 [id number] DIEGO LAY MD [email or web address] [address] [facility] [address] [place] [address] 04/22/2014 10:20:42 04/22/2014 10:41:58 Depressive disorder 45482675 Anxiety disorder 282267462 Hypercholesterolemia 55548933 [id number] ANN-MARIE BLANCO MD [facility] [address] GI [address] [place] [address] 11/14/2014 10:29:49 11/14/2014 11:48:46 Diarrhea 87381469 Advised patient that likely multifacto rial in [...] IBS-D. Patient understand s and agrees. Obesity 815471403 Patien t advised again on decreasing food portion sizes as well as increasing exercise by walking or working out in a pool if necessary. Again advised of possible benefit from participat ing in Weight Watchers or similar support group. Will continue to monitor weight loss at follow up visits. Patient understand s and agrees. Gastroesop hageal reflux disease 711393866 Well-contr olled with current PPI regimen. To continue the same in addition to continuing lifestyle changes. Patient to inform office if symptoms recur. Patient understand s and agrees. History of polyp of colon 528212732 Pt s/p colonoscop y sig for TA in 2011. Risks of missed polyps explained to pt. For repeat colonoscop y in 2016. Pt underastan ds and agrees. Generalize d abdominal pain 112001257 Etiology uncertain. S/p EGD & colonoscop y in 2011. Also advised pt to keep a food journal if symptoms recur. If symptoms recur to call office for possible evaluation w/ repeat EGD and colonoscop y. Pt understand s and agrees. [id number] ANN-MARIE BLANCO MD [facility] [address] GI [address] [place] [address] 04/24/2015 10:33:30 04/24/2015 11:48:16 Obesity 185175726 E66.9 Advised patient on decreasing food portion sizes. Advised patient that a food portion is ~ the size of the palm of her hand and ~2 inches high. Also encouraged patient to increase exercise by walking or working out in a pool if necessary. Will continue to monitor weight at follow up visits. Patient understand s and agrees. Epigastric pain 14388538 R10.13 Likely secondary to GERD however cannot rule out possible component of functional dyspepsia. Starting trial of PPI p.o. q. a.m. Also instructed patient on GERD lifestyle modificati ons. Pending response may require EGD to rule out GERD complicati ons. Patient understand s and agrees. Gastroesop hageal reflux disease 353219666 K21.9 S/p increasing dose of current PPI to BID without adequate response. Will change to different PPI. If no improvemen t may require EGD. Generalize d abdominal pain 151859633 R10.84 Resolved. To treat obesity as above. Also advised pt to keep a food journal if symptoms recur. If symptoms recur to call office for possible evaluation w/ imaging studies. Pt understand s and agrees. Diarrhea 76413101 R19.7 Much improved. Likely multifacto rial in [...] and agrees. History of polyp of colon 638995278 Z86.010 Pt s/p colonoscop y sig for TA in 2011. Risks of missed polyps explained to pt. For repeat colonoscop y in 2017. Pt underastan ds and agrees. Osteoporosis 73917838 M8 1.0 Due to risk of osteoporos is and patient's need for long-term PPI therapy, suggest bone density study to rule out osteopenia /osteoporo sis. Patient advised to continue Calcium + Vitamin D BID. Last BDS in 2013. Will schedule for bone density study with further recommenda tions pending results. [id number] BRAN GRAHAM MD [facility] [address] [place] [address] 07/07/2015 10:40:08 07/07/2015 11:24:01 Migraine 21635359 G43.909 Depressive disorder 3548 9007 F32.9 Anxiety disorder 2896735 06 F41.9 Essential hypertension 61190157 I10 Intracrani al meningioma 769729317 D32.0 Tremor 41129729 R25.1 [id number] BRAN GRAHAM MD [facility] [address] [place] [address] 11/30/2015 10:04:34 11/30/2015 10:38:32 Osteoporosis 36597151 M81.0 Generalize d abdominal pain 681582547 R10.84 Depressive disorder 3548 9007 F32.9 Anxiety disorder 8224002 06 F41.9 Migraine 75179279 G43.90 9 Intracrani al meningioma 613924498 D32.0 [id number] ANN-MARIE BLANCO MD [facility] [address] GI [address] [place] [address] 01/22/2016 09:27:38 01/22/2016 11:11:48 Gastroesophageal reflux disease 166017001 K21.9 Well controlled with Nexium 40 mg qd 30 min before meals. To cont the same. To continue the same in addition to continuing lifestyle changes. Patient to inform office if symptoms recur. Patient understand s and agrees. Obesity 550289143 E66.9 BMI: 37.6 Prior visit pt at BMI 39.2 in 228.2 lbs. Pt has lost ~10 lbs since last visit. To cont on decreasing food portion sizes and exercising in pool and golfing. Spoke to pt about weight loss sx with Dr. Echevarria. Will continue to monitor weight at follow up visits. Patient understand s and agrees. Epigastric pain 29510625 R10.13 Resolved. To cont as above. Patient understand s and agrees. Diarrhea 68109078 R19.7 No improvemen t - see HPI. [...] response. Pt understand s and agrees. Osteoporosis 89006899 M8 1.0 Last visit, we ordered a BDS - do not see results. To cont calcium and vit-D supplement . Will check records further / reorder study. Pt understand s and agrees. Nausea 831025738 R11.0 Occasional symptoms. ? Secondary to PUD [...] and agrees. History of polyp of colon 464303666 Z86.010 Pt s/p colonoscop y sig for TA in 2011. Risks of missed polyps explained to pt. For repeat colonoscop y in 2017. Pt understand s and agrees. [id number] ANN-MARIE BLANCO MD [facility] [address] GI [address] [place] [address] 07/15/2016 09:54:00 07/15/2016 11:23:56 Gastroesophageal reflux disease 750063628 K21.9 Well controlled with Nexium 40 mg qd 30 min before meals however due to possible diarrhea as s/e will d/c and start a trial of Dexilant 60 mg qAM.Furthe r recommenda tions pending response to therapy as well as colonoscop y and lab results +/- EGD is TTG positive Abdominal pain 82976561 R10.9 Likely multifacto rial in origin with a component secondary to patient's diarrhea.? Lactose intoleranc e.Await response to new dietary regimen including avoidance of coffee and lactose.Al so await colonoscop y results. Further recommenda tions to follow.May require initiation of antispasmo dic. Abdominal bloating 41905 2057 R14.0 Symptoms still persist despite attempts to [...] . Pt understand s and agrees. Diarrhea 69997800 R19.7 No improvemen t - see HPI. [...] & results.Pt understand s and agrees. Obesity 028641820 E66.9 Patient admits to a very sedentary [...] agrees. Screening for malignant neoplasm of colon 454671216 Z12.11 S/p colonoscop y in 2011 significan t for TA..Will schedule for a screening/ surveillan ce colonoscop y with future recommenda tions pending results. Risks of missed polyps, bleeding, pain & perforatio n explained to the pt. Pt understand s and agrees. History of polyp of colon 578166518 Z86.010 Pt s/p colonoscop y sig for TA in 2011. Risks of missed polyps explained to pt.For repeat colonoscop y now.Pt understand s and agrees. [id number] ANN-MARIE BLANCO MD [facility] [address] [place] [address] 11/15/2016 11:43:37 11/15/2016 14:03:40 Diarrhea 50631769 R19.7 Improved following dietary changes.Diane booth multifacto [...] understand s and agrees. Polyp of colon 39884093 K63.5 Pt s/p colonoscop y 07/2016 sig for TA. Risks of missed polyps explained to pt. For repeat colonoscop y in ~07/2021. Pt understand s and agrees. Gastroesop hageal reflux disease 939393724 K21.9 Assoc w/ wine & [place] food ingestion despite Omeprazole 40 mg qD.To cont PPI- BID.To call if breakthrou gh symptoms continue/w orsen. Nausea 395606266 R11.0 Resolved. ? Secondary to PUD vs GERD vs dietary indiscreti ons vs gastropare sis. To continue PPI therapy. To call office if symptoms recur. In addition if symptoms recur will consider requesting thyroid studies and celiac panel to rule out concomitan t illnesses. Abdominal pain 23610711 R10.9 Resolved. Etiology uncertain. Also advised pt to keep a food journal if symptoms recur. If symptoms recur to call office for possible evaluation w/ imaging studies. Pt understand s and agrees. Obesity 632885380 E66.9 Patient admits to a very sedentary lifestyle as well as depression which decreases her activity.P t requesting informatio n about the gastric sleeve option.Dis cussed at length with pt.Referri ng to Dr. Echevarria. [id number] BRAN GRAHAM MD [facility] [address] [place] [address] 03/31/2017 14:55:45 03/31/2017 16:19:02 Osteoporosis 17823193 M81.0 Generalize d abdominal pain 757129381 R10.84 Depressive disorder 3548 9007 F32.9 Anxiety disorder 7178317 06 F41.9 Migraine 28783734 G43.90 9 Intracrani al meningioma 488707538 D32.0 Tremor 37862187 R25.1 Obesity 152726787 E66.9 Insomnia 619840508 G47.0 0 [id number] BRAN GRAHAM MD [facility] [address] [place] [address] 12/22/2017 09:36:44 12/22/2017 10:11:18 Osteoporosis 57469995 M81.0 Generalize d abdominal pain 394000933 R10.84 Depressive disorder 3548 9007 F32.9 Anxiety disorder 1124760 06 F41.9 Migraine 16091330 G43.90 9 Intracrani al meningioma 708896431 D32.0 Tremor 35709219 R25.1 Obesity 973810554 E66.9 Insomnia 845562042 G47.0 0 [id number] BRAN GRAHAM MD [facility] [address] [place] [address] 01/23/2018 08:44:25 01/23/2018 09:33:38 Osteoporosis 52416519 M81.0 Generalize d abdominal pain 253690680 R10.84 Depressive disorder 3548 9007 F32.9 Anxiety disorder 5403306 06 F41.9 Migraine 42371197 G43.90 9 Intracrani al meningioma 064150238 D32.0 Tremor 77300020 R25.1 Obesity 562205290 E66.9 Insomnia 934870240 G47.0 0 Seizure disorder 1220123 02 G40.522 [id number] Mag Hanna NP [facility] [address] [place] [address] 03/10/2018 14:22:03 03/10/2018 15:16:03 Abdominal pain 29320207 R10.9 Will check CBC and CT and [...] of the abdomen, bleeding per rectum. Diarrhea 39969666 R19.7 [id number] BRAN GRAHAM MD [facility] [address] [place] [address] 03/11/2018 12:54:27 03/11/2018 13:54:24 Osteoporosis 88027938 M81.0 Anxiety disorder 1201547 06 F41.9 Seizure disorder 5835587 02 G40.909 Generalize d abdominal pain 710780300 R10.84 Depressive disorder 3548 9007 F32.9 Tremor 56000825 R25.1 Migraine 51956479 G43.90 9 Intracrani al meningioma 372305316 D32.0 Obesity 441358131 E66.9 Insomnia 636070395 G47.0 0 [id number] BRAN GRAHAM MD [facility] [address] [place] [address] 04/01/2018 09:55:40 04/01/2018 10:25:46 Osteoporosis 71164017 M81.0 Anxiety disorder 3099477 06 F41.9 Seizure disorder 4240856 02 G40.909 Generalize d abdominal pain 000245761 R10.84 Depressive disorder 3548 9007 F32.9 Tremor 52472928 R25.1 Migraine 04058590 G43.90 9 Intracrani al meningioma 745382313 D32.0 Obesity 405159356 E66.9 Insomnia 458980031 G47.0 0 [id number] ANN-MARIE BLANCO MD [facility] [address] [facility] [address] [place] [address] 06/22/2018 15:32:39 06/24/2018 10:42:07 Diarrhea 10975443 R19.7 Watery, explosive, w/ urgency, x~2-3 weeks, [...] well as lab results. Polyp of colon 35913698 K63.5 Pt s/p colonoscop y 07/2016 sig for TA. Risks of missed polyps explained to pt. For repeat colonoscop y in ~07/2021 or sooner PRN. Pt understand s and agrees. Gastroesop hageal reflux disease 440763675 K21.9 Well-contr olled with Nexium 40 mg qAM. To continue the same in addition to continuing lifestyle changes. Patient to inform office if symptoms recur. Patient understand s and agrees. Obesity 870779455 E66.9 BMI = 41, up from 38.6.Pt reports +++ stress over the past year.Patie nt advised again on decreasing food portion sizes as well as increasing exercise by walking or working out in a pool if necessary due to arthritis. Will continue to monitor weight loss at follow up visits. Patient understand s and agrees. Abdominal bloating 09470 9008 R14.0 Symptoms still persist despite attempts [...] . Pt understand s and agrees. Osteoporosis 32064620 M8 1.0 Last BDS was in 2016. [...] study with further recommenda tions pending results. [id number] BRAN GRAHAM MD [facility] [address] [place] [address] 07/23/2018 14:54:08 07/23/2018 15:25:51 Intracranial meningioma 653501305 D32.0 Seizure disorder 7766812 02 G40.909 Anxiety disorder 3469165 06 F41.9 Depressive disorder 3548 9007 F32.9 Tremor 72604275 R25.1 Migraine 79096235 G43.90 9 Obesity 921376507 E66.9 Disorder o f vitamin B12 030531181 E53.8 [id number] BRAN GRAHAM MD [facility] [address] [place] [address] 05/13/2019 09:44:20 05/13/2019 10:24:58 Intracranial meningioma 581820080 D32.0 Depressive disorder 3548 9007 F32.9 Seizure disorder 2859393 02 G40.909 Disorder o f vitamin B12 695627785 E53.8 Anxiety disorder 9999639 06 F41.9 Tremor 23092623 R25.1 Migraine 53395959 G43.90 9 Obesity 934317699 E66.9 [id number] BRAN GRAHAM MD [facility] [address] [place] [address] 09/01/2019 11:23:50 09/01/2019 12:35:29 Intracranial meningioma 823483560 D32.0 Depressive disorder 3548 9007 F32.9 Disorder o f vitamin B12 734848862 E53.8 Seizure disorder 2059135 02 G40.909 Anxiety disorder 2380328 06 F41.9 Tremor 17317484 R25.1 Migraine 89831315 G43.90 9 Obesity 774091002 E66.9 [id number] BRAN GRAHAM MD [facility] [address] [place] [address] 11/11/2019 12:57:58 11/11/2019 14:50:24 Tremor 66960308 R25.1 Intracrani al meningioma 533939552 D32.0 Depressive disorder 3548 9007 F32.9 Seizure disorder 7381060 02 G40.909 Anxiety disorder 5455464 06 F41.9 Migraine 57889834 G43.90 9 Obesity 533942244 E66.9 [id number] ANN-MARIE BLANCO MD [facility] [address] [place] [address] 11/22/2019 10:54:04 11/22/2019 12:19:21 Diarrhea 60873555 R19.7 ~1-3 loose stools daily, +/- fecal [...] literature given previously . Polyp of colon 99545351 K63.5 Pt s/p colonoscop y 07/2016 sig for TA. Risks of missed polyps explained to pt. For repeat colonoscop y in ~07/2021 or sooner PRN. Pt understand s and agrees. Gastroesop hageal reflux disease 055770492 K21.9 Well-contr olled with Omeprazole 40 mg qAM. To continue the same in addition to continuing lifestyle changes. Patient to inform office if symptoms recur. Patient understand s and agrees. Obesity 930708759 E66.9 BMI = 42.9, up from 41, up from 38.6. ~250 lbsPt reports +++ stress over the past year.Patie nt advised again on decreasing food portion sizes as well as increasing exercise by walking or working out in a pool if necessary due to arthritis. Will continue to monitor weight loss at follow up visits. Patient understand s and agrees. Abdominal bloating 75885 9003 R14.0 Symptoms still persist despite attempts to [...] . Pt understand s and agrees. Osteoporosis 90622845 M8 1.0 Last BDS was in 2016. [...] tions pending results. Incontinence of feces 72 880865 R15.9 Etiology likely multifacto rial in origin [...] possible biofeedbac k training. Pre-surgery testing 1104 60500 Z01.89 For COVID testing prior to any outpt GI procedure. Dysphagia 30935868 R13.1 0 Likely secondary to patient's GERD. To continue Omeprazole 40 mg po qAM. Also scheduling for EGD to rule out GERD complicati ons as well as EoE. If patient does not respond to the PPI trial, may also require esophagram to rule out motility disorder. [id number] ANN-MARIE BLANCO MD [facility] [address] [place] [address] 01/10/2020 15:52:14 01/10/2020 16:48:46 Diarrhea 34642683 R19.7 Currently having ~1-2 semi formed BM [...] literature given previously . Polyp of colon 36770950 K63.5 S/p repeat colon 12/01/2019- Neg for colitis, + for a polyp in the rectosigmo id colon.Risk s of missed polyps explained to pt. For repeat colonoscop y in ~5 years or sooner PRN. Pt understand s and agrees. Pt s/p colonoscop y 07/2016 sig for TA. Gastroesop hageal reflux disease 604874213 K21.9 S/p EGD 12/01/2019- Sig for gastritis. Well-contr olled with Omeprazole 40 mg qAM. To continue the same in addition to continuing lifestyle changes. Patient to inform office if symptoms recur. Patient understand s and agrees. Obesity 910146013 E66.9 2' to leg brace, pt not [...] Patient understand s and agrees. Abdominal bloating 18949 7811 R14.0 Much improved. Likely multifacto rial in [...] previously ) understand s and agrees. Osteoporosis 53914909 M8 1.0 Last BDS was in 2016. [...] tions pending results. Incontinence of feces 72 437259 R15.9 Secondary to watery / loose stools as since her symptoms resolved following an increase in fiber in her diet and increasing the bulk of her stool. Advised patient to continue her high fiber diets. Also advised patient to perform anal sphincter strengthen ing exercises several times daily and as needed. Fiber literature given previously . To call office if episodes recur. Dysphagia 75700039 R13.1 0 Resolved. Likely secondary to patient's GERD. To continue Omeprazole 40 mg po qAM. Also scheduling for EGD to rule out GERD complicati ons as well as EoE. If patient does not respond to the PPI trial, may also require esophagram to rule out motility disorder. Fatigue 24889423 R53.83 ? 2' to changed to Dr. Ori Cancino. Requesting copies of lab work. To f/u w/ Dr. Cancino as well. [id number] BRAN GRAHAM MD [facility] [address] [place] [address] 05/12/2020 13:45:36 05/12/2020 14:33:39 Tremor 84502384 R25.1 Intracrani al meningioma 213573968 D32.0 Depressive disorder 3548 9007 F32.9 Seizure disorder 6151076 02 G40.909 Anxiety disorder 5544177 06 F41.9 Migraine 37920912 G43.90 9 Obesity 086581572 E66.9 Memory impairment 235166 006 R41.3 [id number] BRAN GRAHAM MD [facility] [address] [place] [address] 12/22/2020 14:34:50 12/22/2020 15:09:13 Memory impairment 932285967 R41.3 Tremor 56631963 R25.1 Seizure disorder 0459416 02 G40.909 Intracrani al meningioma 347247657 D32.0 Depressive disorder 3548 9007 F32.9 Anxiety disorder 2058712 06 F41.9 Migraine 77537363 G43.90 9 Obesity 277818993 E66.9 [id number] SOCORRO WU APRN [facility] [address] [facility] [place] [address] 11/19/2021 09:28:15 11/19/2021 10:06:14 Diarrhea 69608404 R19.7 Improved. Currently having 2-3 formed BM daily w/ Metamucil. 1-2 loose stool episodes a month now. Any loose episodes are assoc w/ dietary indiscreti ons.Advise d patient on increasing dietary fiber as well as avoiding lactose.Fi harika literature given previously . S/p EGD & colonoscop y 11/2019- S/p Neg random bx'sOther w/u including TFT, negative to date. Polyp of colon 11732884 K63.5 S/p repeat colon 12/01/2019- Neg for colitis, + for a polyp in the rectosigmo id colon. Risks of missed polyps explained to pt. For repeat colonoscop y in ~5 years or sooner PRN. Pt understand s and agrees. Pt s/p colonoscop y 07/2016 sig for TA. Gastroesop hageal reflux disease 288926171 K21.9 S/p EGD 12/01/2019- Sig for gastritis. Well-contr olled with Pantoprazo le 40mg qAM. Previously on Omeprazole 40 qAM. To continue the same in addition to continuing lifestyle changes. Patient to inform office if symptoms recur. Patient understand s and agrees. Obesity 930951228 E66.9 BMI = 41.2 no change in weight since last visitPatie nt advised again on decreasing food portion sizes as well as increasing exercise by walking or working out in a pool if necessary due to arthritis. Will continue to monitor weight loss at follow up visits.Emilie caraballo understand s and agrees. Abdominal bloating 16971 9008 R14.0 Much improved. 1-2 episodes a [...] previously ) understand s and agrees. Osteoporosis 16867562 M8 5.88 Last BDS was in 2015. Due to risk of osteoporos is and patient's need for long-term PPI therapy, suggest bone density study to rule out osteopenia /osteoporo sis. Will schedule for bone density study with further recommenda tions pending results. Patient advised to continue Calcium + Vitamin D BID. Incontinence of feces 72 399973 R15.9 Secondary to watery / loose stools [...] To call office if episodes recur. Dysphagia 37859465 R13.1 0 Resolved. Likely secondary to patient's GERD. To continue Pantoprazo le 40 mg po qAM. If symptoms return or worsen may also require esophagram to rule out motility disorder. [id number] SOCORRO WU APRN [facility] [address] [place] [address] 11/29/2022 13:55:48 11/29/2022 14:42:52 Diarrhea 76792028 R19.7 Improved. Currently having 2-3 formed BM daily w/ Metamucil. 1-2 loose stool episodes a month now. Any loose episodes are assoc w/ dietary indiscreti ons.Advise d patient on increasing dietary fiber as well as avoiding lactose.Fi harika literature given previously . S/p EGD & colonoscop y 11/2019- S/p Neg random bx'sOther w/u including TFT, negative to date. Polyp of colon 46770640 K63.5 S/p repeat colon 12/01/2019- Neg for colitis, + for a polyp in the rectosigmo id colon. Risks of missed polyps explained to pt. For repeat colonoscop y in ~5 years or sooner PRN. Pt understand s and agrees. Pt s/p colonoscop y 07/2016 sig for TA. Gastroesop hageal reflux disease 422069847 K21.9 S/p EGD 12/01/2019- Sig for gastritis. Well-contr olled with Pantoprazo le 40mg qAM. Previously on Omeprazole 40 qAM. To continue the same in addition to continuing lifestyle changes. Patient to inform office if symptoms recur. Patient understand s and agrees. Obesity 521350712 E66.9 Patient advised again on decreasing food portion sizes as well as increasing exercise by walking or working out in a pool if necessary due to arthritis. Will continue to monitor weight loss at follow up visits.Pat ietim understand s and agrees. Abdominal bloating 86442 9008 R14.0 Much improved. 1-2 episodes a [...] previously ) understand s and agrees. Osteoporosis 15199830 M8 5.88 BDS 2021 sig for osteopenic changesDue to risk of osteoporos is and patient's need for long-term PPI therapy, suggest bone density study to rule out osteopenia /osteoporo sis. Will schedule for bone density study with further recommenda tions pending results. Patient advised to continue Calcium + Vitamin D BID. Incontinence of feces 72 792055 R15.9 Secondary to watery / loose stools [...] To call office if episodes recur. Dysphagia 99596558 R13.1 0 Resolved. Likely secondary to patient's GERD. To continue Pantoprazo le 40 mg po qAM. If symptoms return or worsen may also require esophagram to rule out motility disorder. [id number] ANN-MARIE BLANCO MD [facility] [address] [place] [address] 01/20/2023 13:51:03 01/20/2023 14:47:42 Gastroesophageal reflux disease without esophagitis 006002843 K21.9 + Breakthrou gh symptoms despite Protonix qAM. Improved w/ Pepcid PRN.To take the Pepcid qHS, not PRN.To continue the same in addition to continuing lifestyle changes.[place] to inform office if symptoms recur.Alina ent understand s and agrees. Previously on Omeprazole 40 qAM. Diarrhea 75472600 R19.7 Well controlled w/ Metamucil + protein shake qAM. Having 1-2 soft stools daily.Any loose episodes are assoc w/ dietary indiscreti ons.Advise d patient on increasing dietary fiber as well as avoiding lactose.Fi harika literature given previously . S/p EGD & colonoscop y 11/2019- S/p Neg random bx'sOther w/u including TFT, negative to date. Polyp of colon 65796642 K63.5 S/p repeat colon 12/01/2019- Neg for colitis, + for a polyp in the rectosigmo id colon. Risks of missed polyps explained to pt. For repeat colonoscop y in ~5 years or sooner PRN. Pt understand s and agrees. Pt s/p colonoscop y 07/2016 sig for TA. Obesity 492181672 E66.9 BMI= 41.2, ~240 lbs. S/p ~5 lb wt gain since her last visit.Alina ent advised again on decreasing food portion sizes as well as increasing exercise by walking or working out in a pool if necessary due to arthritis. Will continue to monitor weight loss at follow up visits.Emilie caraballo understand s and agrees. Osteoporosis 37277382 M8 5.88 BDS 2021 sig for osteopenic changesDue to risk of osteoporos is and patient's need for long-term PPI therapy, suggest bone density study to rule out osteopenia /osteoporo sis. Will schedule for bone density study with further recommenda tions pending results. Patient advised to continue Calcium + Vitamin D BID. Incontinence of feces 72 790073 R15.9 Resolved. Advised patient to continue her high fiber diets. Also advised patient to perform anal sphincter strengthen ing exercises several times daily and as needed. Fiber literature given previously . To call office if episodes recur. [id number] ANN-MARIE BLANCO MD [facility] [address] [place] [address] 06/09/2023 13:22:19 06/09/2023 15:08:44 Gastroesophageal reflux disease without esophagitis 088149444 K21.9 Well controlled w/ Protonix 40 mg qAM & Pepcid 40 mg qHS PRN (usually 1-2/wk)To cont the same in addition to continuing lifestyle changes.[place] to inform office if symptoms recur.Alina ent understand s and agrees. Previously on Omeprazole 40 qAM & Protonix qAM only. Diarrhea 80411030 R19.7 Well controlled w/ Metamucil + protein shake qAM. Having 1-2 soft stools daily.Any loose episodes are assoc w/ dietary indiscreti ons.Advise d patient on increasing dietary fiber as well as avoiding lactose.Fi harika literature given previously . S/p EGD & colonoscop y 11/2019- S/p Neg random bx'sOther w/u including TFT, negative to date. Polyp of colon 13380335 K63.5 S/p repeat colon 12/01/2019- Neg for colitis, + for a polyp in the rectosigmo id colon. Risks of missed polyps explained to pt. For repeat colonoscop y in ~5 years or sooner PRN. Pt understand s and agrees. Pt s/p colonoscop y 07/2016 sig for TA. Obesity 971236130 E66.9 BMI= 41.2, ~240 lbs. S/p ~5 lb wt gain since her last visit.Alina wild advised again on decreasing food portion sizes as well as increasing exercise by walking or working out in a pool if necessary due to arthritis. Will continue to monitor weight loss at follow up visits.Emilie caraballo understand s and agrees. Osteoporosis 03856976 M8 5.88 BDS 12/25/2021 sig for osteopenic changesDue to risk of osteoporos is and patient's need for long-term PPI therapy, suggest bone density study to rule out osteopenia /osteoporo sis. Will schedule for bone density study with further recommenda tions pending results. Patient advised to continue Calcium + Vitamin D BID. Incontinence of feces 72 667143 R15.9 S/p recurrence ~2/month.T o keep a food journalTo increase her Metamucil to BID.Advise d patient to continue her high fiber diets. Also advised patient to perform anal sphincter strengthen ing exercises several times daily and as needed. Fiber literature given previously . To call office if episodes recur. Dysphagia 81125421 R13.1 0 Resolved. Likely secondary to patient's [...] 12/22/2020 1 [place] Silvana F Payam [id number] Silvana F Payam 12/22/2020 2 [employer] OPTION - PLAN F (MEDICARE SUPPLEMENT) Silvana F Jain Payam [id number] Silvana F Payam 11/19/2021 1 [place] Silvana F Payam [id number] Silvana F Payam 11/19/2021 2 [employer] OPTION - PLAN F (MEDICARE SUPPLEMENT) Silvana F Jain Payam [id number] Silvana F Payam 11/29/2022 1 [place] Silvana F Payam [id number] Silvana F Payam 11/29/2022 2 [employer] HE[employer] OPTION - PLAN F (MEDICARE SUPPLEMENT) Silvana F Jain Payam [id number] Silvana F Payam 01/20/2023 1 [place] Silvana F Payam [id number] Silvana F Payam 01/20/2023 2 [employer] HE[employer] OPTION - PLAN F (MEDICARE SUPPLEMENT) Silvana F Jain Payam [id number] Silvana F Payam 06/09/2023 1 [place] Silvana F Payam [id number] Silvana F Payam 06/09/2023 2 [employer] HE[employer] OPTION - PLAN F (MEDICARE SUPPLEMENT) Silvana Jackson [id number] Silvana Jackson Notes Date Note Type Note [...] of multiple GI complaints. SOCORRO WU APRN [address] [place], [address], [facility] [place] 11/19/2021 11:00:50 11/29/2022 text/html [...] f/u of multiple GI complaints. SOCORRO WU, CLEAN ROOM OPERATOR [address] [place], [address], [facility] [place] 11/29/2022 15:51:57 01/20/2023 text/html [...] no throat painNotes:EGD and colonoscopy with DR Balnco 11/2019 sig for Mild chronic gastritis with [...] of multiple GI complaints. ANN-MARIE BLANCO MD [facility] [place], [address], [facility] [place] 02/07/2023 16:58:22 06/09/2023 text/html [...] of multiple GI complaints. ANN-MARIE BLANCO MD [address] [place], [address], [facility] [place] 07/24/2023 13:47:18 OBGyn Episode No OBEpisode recorded.
--- OUTSIDE RECORDS SUMMARY | 2024-06-10 15:21 | XMS_ITS | Continuity of Care Document ---
Author Organization [facility] Address [address] [place] [address] [place] [address] Phone Care Team Providers Care Information Assurance Engineer Name Role Phone Ildefonso Peralta MD Unavailable Unavailable Allergies, Adverse Reactions, Alerts Substance Reaction Status Criticality No Known Allergies Active No Inform ation Medications Medication Instructions Dosage Effective Dates (start - stop) Status Comments losartan 50 mg tablet take 1 tablet by o ral route every day 50 MG - Active Coreg 6.25 mg tablet take 1 Tablet by or al route 2 times every day with food 6.25 MG - Active cefdinir 300 mg capsule take 1 capsule by oral route every 12 hours 300 MG - Active benzonatate 100 mg capsule take 1 capsule by oral route 3 times every day 100 MG - Active Crestor 40 mg tablet take 1 tablet by or al route every day 40 MG - Active Lamictal 100 mg tablet take 1 tablet by oral route 2 times every day 100 MG - Active Synthroid 25 mcg tablet take 1 tablet by oral route every day 25 MCG - Active Paxil 30 mg tablet take [...] - Active Procedures Procedure Date OFFICE/OUTPATIENT VISIT, EST OFFICE/OUTPATIENT VISIT, NEW Advance Directives Directive Yes / No Effective Date File Name No Information Encounters Encounter Description Practice Location Reason(s) For Visit Diagnoses Date Provider Providers Copied on Encounter [facility], [address] [place], [id number], tel:[phone] [facility] No Information 5 Fabian Fregoso. [address], [place], [place], [address] , [place]. tel:[phone] OFFICE/OUTPA TIENT VISIT, [facility], [address], [place], [place], [address], [place] tel:[phone] [facility] sick (chief complaint) HLP (chief complaint) tremor1 (chief complaint) HTN (chief complaint) Acute bronchitisEssential (primary) hypertensionTremorM ixed hyperlipidemia 5 Fabian Fregoso. [address], [place], [place], [address] , [place]. tel:[phone] [facility], [address] [place] [place], [address], [place] tel:[phone] [facility] No Information 5 Fabian Fregoso. [address], [place], [place], [address] , [place]. tel:[phone] [facility], [address] [place] [place], [address], [place] tel:[phone] [facility] No Information 5 Fabian Fregoso. [address], [place], [place], [address] , [place]. tel:[phone] OFFICE/OUTPA TIENT VISIT, [facility], [address] [place] [place], [address], [place] tel:[phone] [facility] thyroid1 (chief complaint) anxiety1 (chief complaint) HTN (chief complaint) seizure1 (chief complaint) HLP (chief complaint) tremor1 (chief complaint) HypothyroidismTremo rEssential (primary) hypertensionMixed hyperlipidemiaOther epilepsyGeneralized Anxiety DisorderPolyp of colonOsteopenia Fabian Fregoso. [address], [place], [place], [address] , [place]. tel:[phone] Family History Family Member Type Diagnosis Age At Onset Father Problem of 90 old age Sister Problem essential tremor Mother Problem of 80s ?? CVA Payers Payer name Insurance type Covered alliance party ID Authoriza tishannan(s) Medicare [place] WPS MB [id number] A[employer] Secondary CI [id number] Social History Type Description Quantity Date Captured Comments Alcohol Use Details Unknown Caffeine Use Details Unknown Tobacco Use Status No Information Smoking Status No Information Sex Female Chief Complaint And Reason For Visit No Information Plan Of Treatment Date Type Action Status Referral Ordered: FLAKITO VAUGHN -Allopathic & Osteopathic Physicians : Psychiatry & Neurology : Neurology (related to Other epilepsy) ordered Referral Referred To: FLAKITO VAUGHN [address] [place], [place], [phone] Ordered: Referrals: Allopathic & Osteopathic Physicians : Psychiatry & Neurology : Neurology. FLAKITO VAUGHN. Evaluate and treat ordered History Of Present Illness Encounter Date Complaint History Of Prese nt Illness sick Pt went to ER for flu like symptoms including sinus congestion, sore throat ,productive cough with some sob, etc Pt tested positive for influenza A Pt was given prednisone only due to duration of onset of her symptoms. Pt states that she feels slightly better but she still has very severe sinus congestion with cough Pt states that usually she needs to takes abx for above symptoms. She denies any sob HLP Pt has HLP Pt ta kes crestor Pt denies any myalgia tremor1 Pt has chronic t remor. Pt is on primidone. Pt missed her clarisa with neurology and she needs to reschedule HTN Pt has HTN Pt ta kes losartan and coreg and her bp is stable. Pt needs med refilled thyroid1 Pt has borderlin e hypothyroidism Pt [...] ago. HLP Pt has HLP Pt ta kes crestor. Pt denies any myalgia. tremor1 Pt has chronic e ssential tremor. pt was seeing neurology in [place]. She just moved here .Pt needs referral to neurology Pt is on primidone for the past several years but has not helped much. Her neurologist in [place] ruled her out of parkinson disease. Instructions Date Instruction Additional Infor jacob No Information Assessments Type Assessment Date No Information
== END 2024-06-10 14:53 | disposition home or self-care (01) ==
PROVIDERS: PCP Emergency Medicine; Visit Provider Physician Assistant Medical
DX: R31.0 Gross hematuria (principal); R93.89 Abnormal findings on diagnostic imaging of other specified body structures
CPT/HCPCS: 74178; Q9967

== ENCOUNTER 2024-07-01 12:07 | Outpatient (CLI) | payer MEDICARE, SELFPAY ==
--- NOTE | 2024-07-01 12:30 | ECG_ITS ---
Test Date: 2024-07-01 12:31:50 Measurements Intervals [place] Rate: 73 P: -49 MN: 128 QRS: -15 QRSD: 86 T: 13 QT: 380 QTc: 421 Interpretive Statements ECTOPIC ATRIAL RHYTHM LOW QRS VOLTAGE IN PRECORDIAL LEADS LEFT VENTRICULAR HYPERTROPHY POOR R WAVE PROGRESSION BORDERLINE ST-T WAVE ABNORMALITY- ANT/INF LEADS ABNORMAL ECG No previous ECG available for comparison Electronically Signed On 07-01-2024 12:46:25 CDT by Tio Aquino D.O.
--- OUTSIDE RECORDS SUMMARY | 2024-07-01 12:40 | XMS_ITS | Encounter Summary ---
Author Organization [facility] Address [address] [place] [address] Care Team Providers Care Slime Plant Operator Name Role Phone Jose Norton MD Primary Care Provider [phone] Encounter Details Date Type Department Care Team (Late st Contact Info) Description 05/13/2024 Abstract [facility], [address] [place], [place] [id number] Robe Mendoza MA Social History Tobacco Use [...] Description 08/24/2024 1:00 PM CDT Office Visit [facility] Multispecialty Care - [address], [address] [place] [id number] Monet Beltran MD [address] [place] [address] 09/03/2024 12:00 PM CDT Office Visit [facility] [address] Sadie Villasenor MD [facility] [address] [place] [address] documented as of this encounter Procedures Procedure [...] on filedocumented in this encounter Care Teams Slime Plant Operator Relationship Specialty Start Date End Date Jose oNrton MD [address] [place], [place] [id number] PCP - General FAMILY PRACTICE 02/13/24 documented as of this encounter
--- OUTSIDE RECORDS SUMMARY | 2024-07-01 12:42 | XMS_ITS | Clinical Summary ---
Author Organization [facility] Address [address] [place] [address] Care Team Providers Care Environmental Test Technician Name Role Phone Jose Norton MD Primary Care Provider [phone] Allergies Active Allergy Reactions Criticality Noted Date [...] Type Department Care Team Description 05/13/2024 Abstract [facility] [address], [facility] [address] [place] [address] Robe Mendoza MA 05/12/2024 Orders Only [facility], [facility] [address] [place] [address] Sadie Villasenor MD 05/05/2024 Telephone [facility] [address] [facility], [place] [address] [place] [address] Sadie Villasenor MD Blood Pressure 04/13/2024 Telephone [facility] [address] [facility], [place] [address] [place] [address] Sadie Villasenor MD Medication (Carvedilol ) from [...] Comments Blood Pressure 112/70 02/13/2024 11:49 AM TOBACCO SCRAP SIFTER Pulse 71 02/13/2024 11:49 AM TOBACCO SCRAP SIFTER Temperature - - Respiratory Rate - - Oxygen Saturation 91% 02/13/2024 11: 49 AM TOBACCO SCRAP SIFTER Inhaled Oxygen Concentration - - Weight 112.2 kg (247 lb 6.4 oz) 024 11:49 AM TOBACCO SCRAP SIFTER Height 162.6 cm (5' 4 ) 02/13/2024 11:4 9 AM TOBACCO SCRAP SIFTER Body Mass Index 42.47 02/13/2024 11:49 AM TOBACCO SCRAP SIFTER Plan of Treatment Upcoming Encounters Date Type Department Care Team (Late Contact Info) Description 08/24/2024 1:00 PM CDT Office Visit [facility] Multispecialty Care - [facility] [address] [facility], [address] [place] [id number] Monet Beltran MD [address] [place] [address] 09/03/2024 12:00 PM CDT Office Visit [facility]-[address] [address] Sadie Villasenor MD Three [facility] [address] [place], [place] [id number] Health Maintenance Due Date Last Done Comments DTaP, Tdap and Td Vaccines ( 1 - Tdap) 1961 Zoster Vaccines (1 of 2) 1992 Annual Medicare Wellness Visit 11/03/2007 Dexa Scan (General) 11/03/2007 Pneumococcal Vaccine: 65+ Ye ars (1 of 1 - PCV) 11/03/2007 RSV Immunization or 60+ Years (1 - 1-dose 75+ series) 2017 COVID-19 Vaccine ( - 2023-2 5 season) 2023 PHQ-2 (Physician [place]) 03/24/2024 Meningococcal B Vaccine Aged Out No [...] Final Result from Last 3 Months Insurance [facility] Care Teams Environmental Test Technician Relationship Specialty Start Date End Date Jose Norton MD [facility] [place] [address] PCP - General FAMILY PRACTICE 02/13/24
--- OUTSIDE RECORDS SUMMARY | 2024-07-01 12:42 | XMS_ITS | Continuity of Care Document ---
Author Organization [facility] Address [address] [address] [place] [address] Phone Care Team Providers Care Hot Air Furnace Installer Repairer Name Role Phone Ildefonso Peralta MD Unavailable Unavailable Allergies, Adverse Reactions, Alerts Substance Reaction Status Criticality No Known Allergies Active No Inform ation Medications Medication Instructions Dosage Effective Dates (start - stop) Status Comments ofloxacin 0.3 % ear drops instill 10 drop by otic route every day into affected ear(s) 1.5 MG - Active use for 7 d ays Synthroid 25 mcg tablet take 1 tablet by oral route every day 25 MCG - Active Paxil 30 mg tablet take 1 tablet by oral route every day 30 MG - Active losartan 50 mg tablet take 1 tablet by oral route every day 50 MG - Active Coreg 6.25 mg tablet take 1 Tablet by oral route 2 times every day with food 6.25 MG - Active Crestor 40 mg tablet take 1 tablet by oral route every day 40 MG - Active Lamictal 100 mg tablet take 1 tablet by oral route 2 times every day 100 MG - Active primidone 125 mg tablet take 1 tablet by oral route every day at bedtime for 3 days , then twice daily for 3 days, then three times daily for 3 days 125 MG - Active aspirin 81 mg tablet,delayed release take 1 tablet by oral route every day 81 MG - Active Procedures Procedure Date OFFICE/OUTPATIENT VISIT, EST OFFICE/OUTPATIENT VISIT, EST OFFICE/OUTPATIENT VISIT, NEW Advance Directives Directive Yes / No Effective Date File Name No Information Encounters Encounter Description Practice Location Reason(s) For Visit Diagnoses Date Provider Providers Copied on Encounter OFFICE/OUTPA TIENT VISIT, EST [facility], [address], [place], [place], [address], [place] tel:[phone] [facility] ear pain1 (chief complaint) hypothyroi dism1 (chief complaint) anxiety1 (chief complaint) Otalgia, right earGeneralized Anxiety DisorderHypothyroid ism May- 5 Fabian Fregoso. [address], [place], [place], [address] , [place]. tel:[phone] [facility], [address], [place], [place], [address], [place] tel:[phone] [facility] No Information 5 Fabian Ildefonso. [address], [place], [place], [address] , [place]. tel:[phone] OFFICE/OUTPA TIENT VISIT, [facility], [address], [place], [place], [address], [place] tel:[phone] [facility] sick (chief complaint) HLP (chief complaint) tremor1 (chief complaint) HTN (chief complaint) Acute bronchitisEssential (primary) hypertensionTremorM ixed hyperlipidemia 5 Fabian Fregoso. [address], [place], [place], [address] , [place]. tel:[phone] [facility], [address], [place], [place], [address], [place] tel:[phone] [facility] No Information 5 Fabian Ildefonso. [address], [place], [place], [address] , [place]. tel:[phone] [facility], [address], [place], [place], [address], [place] tel:[phone] [facility] No Information 5 Fabian Fregoso. [address], [place], [place], [address] , [place]. tel:[phone] OFFICE/OUTPA TIENT VISIT, [facility], [address], [place], [place], [address], [place] tel:[phone] [facility] thyroid1 (chief complaint) anxiety1 (chief complaint) HTN (chief complaint) seizure1 (chief complaint) HLP (chief complaint) tremor1 (chief complaint) HypothyroidismTremo rEssential (primary) hypertensionMixed hyperlipidemiaOther epilepsyGeneralized Anxiety DisorderPolyp of colonOsteopenia 5 Fabian Fregoso. [address] [place], [place], [address] , [place]. tel:[phone] Family History Family Member Type Diagnosis Age At Onset Father Problem of 90 old age Sister Problem essential tremor Mother Problem of 80s ?? CVA Payers Payer name Insurance type Covered democrat ID Authoriza tion(s) [place] WPS MB [id number] Aarp Secondary CI [id number] Social History Type Description Quantity Date Captured Comments Alcohol Use Details wine 1 drink daily Caffeine Use Details Unknown Tobacco Use Status Ex-cigarette smoker 025 Smoking Status Former smoker Sex Female Vital Signs Date / Time: Height Weight BMI Pulse Rate Blood Pressure Temperature Respiratory Rate Body Surface Area Head Circumference BMI percentile Pulse Ox Inhaled Ox 5:45 PM 64.00 in 245.00 lbs 42.0 5 kg/m eter (2) 73 /min 140/80 mm[Hg] 97.2 F 16 /min Chief Complaint And Reason For Visit From encounter dated '06/10/2024 17:35'. ear pain1 (chief complaint). Description: pt was treated with abx for bronchitis and sinusitis recently post influenza A infection Pt states that her cough is improving but she notices acute onset ofright ear pain with hearing loss for two days. Pt denies any drainage .Pt denies any sinus pain Pt has history of right tympanoplasty. Pt states that she has frequent right ear infection requiring ear drops in the past Pt denies any fever. hypothyroidism1 (chief complaint). Description: Pt has hypothyroidism pt denies any dysphagia or neck pain Pt needs synthroid refilled anxiety1 (chief complaint). Description: Pt has chronic anxiety and depression Pt takes paxil and doing ok Pt denies any suicidal or homicidal thought Pt denies any crying spells Plan Of Treatment Date Type Action Status Referral Ordered: Otolaryngology (related to Otalgia, right ear) ordered Referral Ordered: Referrals: Otolaryngology. Evaluate and treat ordered Referral Ordered: FLAKITO VAUGHN -Allopathic & Osteopathic Physicians : Psychiatry & Neurology : Neurology (related to Other epilepsy) ordered Referral Referred To: FLAKITO VAUGHN [address] [place], [place], [phone] Ordered: Referrals: Allopathic & Osteopathic Physicians : Psychiatry & Neurology : Neurology. FLAKITO VAUGHN. Evaluate and treat ordered History Of Present Illness Encounter Date Complaint History Of Prese nt Illness hypothyroidism1 Pt has hypothyro idism pt denies any dysphagia or neck pain Pt needs synthroid refilled anxiety1 Pt has chronic a nxiety and depression Pt takes paxil and doing ok Pt denies any suicidal or homicidal thought Pt denies any crying spells ear pain1 pt was treated w ith abx for bronchitis and sinusitis recently post influenza A infection Pt states that her cough is improving but she notices acute onset of right ear pain with hearing loss for two days. Pt denies any drainage .Pt denies any sinus pain Pt has history of right tympanoplasty. Pt states that she has frequent right ear infection requiring ear drops in the past Pt denies any fever. sick Pt went to ER week for flu like symptoms including sinus congestion, [...] ssential tremor. pt was seeing neurology in [place]. She just moved here .Pt needs referral to neurology Pt is on primidone for the past several years but has not helped much. Her neurologist in [place] ruled her out of parkinson disease. Instructions Date Instruction Additional Infor jacob No Information Assessments Type Assessment Date assessment Otalgia, right ear assessment Generalized Anxiety Disorder May assessment Hypothyroidism Mental Status Date Cognitive Assessment Orientation - [place] ed to time, place, person, situation.
== END 2024-07-01 12:08 | disposition home or self-care (01) ==
LOC: ANHSURGERY 12:15
PROVIDERS: PCP Family Medicine; Visit Provider Urology
DX: R31.0 Gross hematuria (principal); I10 Essential (primary) hypertension; Z01.818 Encounter for other preprocedural examination; R94.31 Abnormal electrocardiogram [ECG] [EKG]
CPT/HCPCS: 87077; 87086; 87186; 93005

== ENCOUNTER 2024-07-22 14:06 | Outpatient (CLI) | payer MEDICARE, SELFPAY ==
--- NOTE | ~2024-07-22 | CT_ITS ---
EXAMINATION: CT sinus wo con DATE: 07/22/2024 14:24 INDICATION: Chronic sinusitis TECHNIQUE: Computed tomography (CT) of the paranasal sinuses was performed without intravenous contra st. The dose-length product was 299.51 mGy-cm. Automated exposure control and iterative reconstructio n technique were employed. COMPARISON: CT dated 05/30/2024 FINDINGS: There is a right frontoparietal craniotomy defect. There is mild mucosal thickening of the maxillary sinuses. No mucoperiosteal reaction. There are surgical changes of the ostiomeatal units. L eft-sided medhat bullosa. No air-fluid levels. Small left mastoid effusion. Right mastoid air cells a re not pneumatized. IMPRESSION: 1. Mild maxillary sinus disease. Reviewed, dictated and finalized at location A.
--- OUTSIDE RECORDS SUMMARY | 2024-07-22 14:55 | XMS_ITS | Data Portability ---
Author Organization [place] - [facility] [place], [id number] Address [address] [place] [id number] Care Team Providers Care Market Development Trainer Name Role Phone MARILYN JAIN OTHER RADHA DUMONT Primary Care Provider [phone] ANN-MARIE BLANCO Grill Prep Cook Assessment Encounter Date Assessment Date Assessment LastModified [...] presents for f/u of multiple GI complaints. [email or web address] Not available 11/19/2021 09:50:24 01/20/2023 01/20/2023 PT [...] mg tablet 2022 023 [email or web address] [id number] [address], [address] [place], [address], 16:56:38 primidone 50 mg tablet 2020 [facility] [id number] [facility] [employer], [address] [place], [address], 14:55:36 primidone 250 mg tablet 2020 [facility] [id number] [facility] [employer], [address] [place], [address], 14:55:37 lamotrigin e 25 mg tablet 2020 [facility] [id number] [facility] [employer], [address] [place], [address], 14:55:37 venlafaxin e 75 mg tablet 2020 [facility] [id number] [facility] [employer], [address] [place], [address], 14:55:37 Patient TargetsNo targets recorded. Patient Instructions Encounter Date Encounter Id Patient Instructions Last Modified By Organization Details Last Modified Time 11/19/2021 [id number] diarrhea: care instructions [email or web address] Not available 11/19/2021 10:02:40 11/29/2022 [id number] diarrhea: care instructions [email or web address] Not available 11/29/2022 15:51:41 Reason for Referral None Reported. Results Created Date Observation Date Name Description Value Unit Range Abnormal Flag Note LastModifiedBy Organization Detail LastModifiedTime 12/26/19 22 12/25/2021 DEXA, axial skele ton Physic ians Region al [place] Rylie t: AZALEA JACKSON [id number] Sex: Female Locati on: [facility] Orderi ng Physic arlene: SOCORRO GOMES SPOTTER DRIVER Bone Densit y ACCESS ION EXAM DATE/T [...] Artemio Pena MD On 2021 16:21: 06; -[facility] [id number] Final Signed by: ARTEMIO PENA MD Signed (Elect demetrio queen): 2021 04:21 pm EDT [email or web address] - Radiology Scheduling [address] [facility], [place], [address], 12/31/2021 15:34:33 Result Notes None recorded. Problems Name Problem SNOMED Code Status Onset Date Resolution Date Notes Provider Name and Address Organization Details Recorded Time Hypercholeste rolemia 86383671 Active Not Available [facility] 12:50:53 Migraine 55680288 Active Not Available [facility] 12:50:53 Essential hypertension 44125919 Active Not Available [facility] 12:50:52 Tubular adenoma 951501373 Active Not Available [facility] 12:50:53 Hyperglycemia 30552105 Active Not Available [facility] 12:50:52 Gastroesophag eal reflux disease 098803255 Active Not Available [facility] 12:50:53 Epigastric pain 88021862 Active Not Available [facility] 10/16/202 1 12:50:53 Obesity 701784908 Active Not Available [facility] 12:50:52 Diarrhea 48677835 Active Not Available [facility] 12:50:53 Depressive disorder 33802515 Active Not Available [facility] 12:50:52 Anxiety disorder 872152367 Active Not Available [facility] 12:50:52 Generalized abdominal pain 403506521 Active Not Available [facility] 12:50:52 Osteoporosis 34518139 Active Not Available [facility] 12:50:52 Tremor 37409523 Active 2017 Not Available [facility] 12:50:52 Insomnia 367712384 Active 2017 Not Available [facility] 12:50:53 Vitamin D deficiency 64281750 Active Not Available [facility] 12:50:52 Megaloblastic anemia due to vitamin B>12< deficiency 36847456 Active Not Available [facility] 12:50:52 Senile osteoporosis 70929050 Active Not Available [facility] 12:50:52 Heart murmur 72034107 Active Not Available [facility] 12:50:52 Thready pulse 27505307 Active Not Available [facility] 12:50:52 Edema 194901534 Active Not Available [facility] 12:50:52 Morbid obesity 447862881 Active Not Available [facility] 12:50:52 Pain of joint 39803733 Active Not Available [facility] 12:50:53 Jaime thyroiditis 42353541 Active Not Available [facility] 12:50:53 Hyperlipidemi a 54940002 Active Not Available [facility] 12:50:53 Body mass index 30+ - obesity 154180452 Active Not Available [facility] 12:50:53 Malaise and fatigue 657918345 Active Not Available [facility] 12:50:52 Synovial cyst of popliteal space Active Not Available [facility] 10/16/202 1 12:50:53 Cough 66118482 Active Not Available [facility] 1 12:50:53 Seizure disorder 981490892 Active 2017 Not Available [facility] 1 12:50:53 Disorder of vitamin B12 187555865 Active 2018 Not Available [facility] 1 12:50:52 Memory impairment 152473869 Active 2020 Not Available [facility] 1 12:50:53 Fatigue 65588717 Active 2021 SOCORRO WU APRN [address] [place] [address], [address] , [address] 2 09:49:59 Polyp of colon 02863431 Active 2021 SOCORRO JAZMINFRANDY Devries [address] [place] [address], [address] , [address] 2 09:58:37 Abdominal bloating 295846044 Active 2021 SOCORRO JAZMINFRANDY Devries [address] [place] [address], [address] , [address] 2 10:11:09 Incontinence of feces 33769084 Active 2021 SOCORRO JAZMINFRANDY Devries [address] [place] [address], [address] , [address] 2 10:15:09 Dysphagia 30269980 Active 2021 SOCORRO WU APRN [address] [place] [address], [address] , [address] 2 10:15:09 Gastroesophag eal reflux disease without esophagitis 391368253 Active 2022 ANN-MARIE BLANCO MD [address] [place] [address], [address] , [address] 3 14:26:09 Problem Notes None recorded. Procedures Surgical History Date Name Laterality Status Provider Name and Address Organization Details Recorded Time 11/30/19 20 Colonoscopy completed Allison Gillespie RN Clinic Office [address] 12/14/2019 16:22:28 05/01/19 15 Orthopaedic Surgery completed Allison Gillespie RN [facility] [address] 04/24/2015 10:57:09 02/25/20 14 Date of Last Pap Smear completed Martha Vaughn RN Clinic Office [address] 04/01/2014 10:44:02 12/23/19 14 Date of Last Mammogram completed Martha Vaughn RN Clinic Office [address] 02/24/2014 11:22:55 08/23/19 12 Colonoscopy completed Anastasiya Yusuf LPN [address] 01/22/2016 09:52:10 Cholecystectomy completed Gloria Jean-Pierre [address] 12/14/2013 14:45:18 Appendectomy completed Gloria Jean-Pierre [address] 12/14/2013 14:45:18 Other completed Gloria Jean-Pierre [address] 12/14/2013 14:45:18 Other completed Gloria Jean-Pierre [address] 12/14/2013 14:50:14 Appendectomy completed Bernardo Danae [address] 01/24/2014 09:07:08 Cholecystectomy completed Bernardo Danae [address] 01/24/2014 09:07:08 Breast Surgery completed Bernardo Danae [address] 01/24/2014 09:07:08 Other completed Bernardo Danae [address] 01/24/2014 09:07:08 Other completed Bernardo Danae [address] 01/24/2014 09:07:08 Tubal Ligation completed Martha Vaughn RN Clinic Office [address] 02/24/2014 11:22:55 Other completed Martha Vaughn RN Clinic Office [address] 02/24/2014 11:22:55 breast augmentation completed Jayden Tapia RN Clinic Office [address] 02/24/2014 11:22:55 Endometrial Ablation completed Martha Vaughn RN Clinic Office [address] 02/24/2014 11:22:55 Imaging Results Imaging Date Name Status LastModified by Organiz [facility] Details LastModified Time 12/25/2021 DEXA, axial skeleton completed [email or web address] - Radiology Scheduling [address] [facility], [place], [address], 12/31/2021 15:34:33 Procedure Notes None recorded. Medical Equipment None Reported. Allergies Allergen ID Allergen Name Allergen Category Reaction Reaction Severity Criticality Documentation Date Start Date Code Code System Note Provider Name and Address Organization Details Recorded Time 945861 Ceclor medicatio n Not available Not available Not available 12/14/2013 5 RxNorm Gloria Morejon [address] 4 14:50:14 475343 cefaclor medicatio n myalgias (muscle pain) Not available Not available 01/17/20142175 RxNorm Bernardo Fink [address] 4 09:07:08 126984 Cipro medicatio n Not available Not available Not available 02/24/2014 3 RxNorm Martha Vaughn, RN Clinic Office [address] 4 11:22:55 Medications Name Sig Start [...] Not Available ciprofloxa oswaldo 500 mg tablet 10/27 /2014 completed Not Available Not Available Not Available [...] completed Not Available Not Available Not Available [facility] 04/24 completed Not Available Not Available Not [...] Available Not Available Not Available Fluzone High-Dose 4394-4288 (PF) 180 mcg/0.5 mL intramuscu lar syringe TO BE ADMINIST ERED BY PHARMACI ST FOR IMMUNIZA TION 08/05 completed Not Available Not Available Not Available Fluzone High-Dose 1353-7605 (PF) 180 mcg/0.5 mL intramuscu lar syringe [...] Updated DateTime 1 162.56 cm 37.8 kg/m2 75543.3 2 g 85 /min 95 % 95 % 132 mm[Hg] 90 mm[Hg] Harika Palafox, Outside Residential Sales Professional [address] 1 14:42:04 Date Recorded Body height Body mass index (BMI) Body weight Heart rate Respiratory rate Oxygen saturation Oxygen saturation in Arterial blood by Pulse oximetry Pain severity - 0-10 verbal numeric rating [Score] - Reported Systolic blood pressure Diastolic blood pressure Provider Name and Address Organization Details Last Updated DateTime 2 162.56 cm 41.2 kg/m2 996384. 17 g 88 /min 16 /min 98 % 98 % 0 122 mm[Hg] 85 mm[Hg] Allison Gillespie RN Clinic Office [address] 2 09:43:50 Date Recorded Body weight Heart rate Respiratory rate Oxygen saturation Oxygen saturation in Arterial blood by Pulse oximetry Body mass index (BMI) Body height Pain severity - 0-10 verbal numeric rating [Score] - Reported Systolic blood pressure Diastolic blood pressure Provider Name and Address Organization Details Last Updated DateTime 3 012164. 21 g 87 /min 16 /min 98 % 98 % 40.3 kg/m2 162.56 cm 1 128 mm[Hg] 83 mm[Hg] Allison Gillespie RN Clinic Office [address] 3 14:30:54 Date Recorded Body height [...] 98 % 98 % 0 41.2 kg/m2 056990. 17 g 128 mm[Hg] 83 mm[Hg] Allison Gillespie RN Clinic Office [address] 3 14:07:00 Date Recorded Body height [...] 98 % 98 % 0 42.9 kg/m2 246175. 09 g 122 mm[Hg] 82 mm[Hg] Allison Gillespie RN Clinic Office [address] 4 14:30:54 Social History Question Answer Notes LastModified by Organizat ion Details LastModified Time Tobacco Smoking Status Former Smoker [email or web address] 's Allison Gillespie RN Clinic Office [address] 01/17/2014 15:00:38 What Is Your Level Of Alcohol Consumption? Occasional 4-5 Wine Q Week [email or web address] Information not available 01/17/2014 What Is Your Level Of Caffeine Consumption? Moderate 2 Coffe Qd [email or web address] Information not available 01/17/2014 How Much Tobacco Do You Chew? None Information not available 01/22/2016 What Type Of Diet Are You Following? REGULAR Information not available 01/22/2016 Which Illicit Or Recreational Drugs Have You Used? 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 01/20/2023 [email or web address] Information not available 01/20/2023 Sex: Unknown Functional [...] available 2015 16:26:31 Medical History Condition Response Other Y Colonoscopy Y Depression Y Anxiety Disorder Y Abnormal Pap Smear N High Cholesterol Y Gastrointestinal Problems Y Colon Polyps Y Headaches or Migraines Y GERD/Reflux Y Hypertension Y Gynecological History Statement/Question Response If Post [...] completed Allison Gillespie RN Clinic Office null, [address] 01/10/2020 15:56:06 Influenza, high-dose, trivalent, PF 7 completed Allison Gillespie RN Clinic Office null, [address] 12/01/2019 15:38:31 Influenza, split virus, trivalent, preservative 8 completed Allison Gillespie RN Clinic Office null, [address] 12/01/2019 15:38:31 Influenza, split virus, trivalent, preservative 4 completed Allison Gillespie RN Clinic Office null, [address] 12/01/2019 15:38:31 Influenza, split virus, trivalent, preservative 2 rox Gillespie RN Clinic Office null, [address] 12/01/2019 15:38:31 Pneumococcal conjugate PCV 13 7 rox Gillespie RN Clinic Office null, [address] 12/01/2019 15:38:31 Influenza, split virus, trivalent, preservative 0 rox Gillespie RN Clinic Office null, [address] 12/01/2019 15:38:31 Influenza, split virus, trivalent, preservative 1 rox Gillespie RN Clinic Office null, [address] 12/01/2019 15:38:31 Influenza, split virus, trivalent, preservative 9 completed Allison Gillespie RN Clinic Office null, [address] 12/01/2019 15:38:31 Influenza, high-dose, trivalent, PF 8 completed Harika Palafox Outside Residential Sales Professional Cert null, [address] 12/22/2020 14:42:16 pneumococcal polysaccharide PPV23 0 completed Harika Palafox Outside Residential Sales Professional Cert null, [address] 12/22/2020 14:42:16 zoster live 3 completed Harika Palafox Outside Residential Sales Professional Cert null, [address] 12/22/2020 14:42:16 Influenza, high-dose, trivalent, PF 4 completed Ly Jude, RN null, [address] 03/31/2017 15:28:41 pneumococcal polysaccharide PPV23 0 completed Ly Roque, RN null, [address] 12/22/2017 09:52:35 Influenza, split virus, quadrivalent, preservative 6 completed Ly Roque, RN null, [address] 03/31/2017 15:28:41 pneumococcal polysaccharide PPV23 1 completed Ly Roque, RN null, [address] 03/31/2017 15:28:41 zoster live 3 completed Ly Roque, RN null, [address] 12/22/2017 09:52:36 Influenza, high-dose, trivalent, PF 5 completed Ly Roque, RN null, [address] 12/22/2017 09:52:35 Influenza, high-dose, trivalent, PF 4 completed Harika Palafox Outside Residential Sales Professional Cert null, [address] 12/22/2020 14:42:16 Influenza, split virus, quadrivalent, preservative 7 completed Ly Roque, RN null, [address] 12/22/2017 09:52:35 Past Encounters Encounter ID Performer Location Encounter Start Date Encounter Closed Date Diagnosis/Indication Diagnosis SNOMED-CT Code Diagnosis ICD10 Code Diagnosis Note [id number] HARDIK JESSICA MD COL_DESK 10 PCP [address] [facility] DESK [address] [place] [address] 12/28/2013 11:02:14 12/28/2013 14:06:46 Dyspnea on exertion 65854821 because of her symptoms and her previous EKG having nonspecifi c ST-T changes (abnormal ekg), a stress test will be ordered. She has significan t osteoarthr itis of the knees and back pain and cannot do the treadmill. Because of this an adenosine stress test will be ordered. I suspect that she is also deconditio isela as well. Chronic back pain 517860811 she will followup with pain management . I explained that control of her back pain will be an essential part of her weight reduction program. We need to have her working with a animal trainer in order to help her lose weight. A referral to a animal trainer was given. Essential hypertension 15911998 her blood pressures have been stable. She will work on weight reduction program. Blood pressure goals were given. Hypercholesterolemia 13663351 her lipid profile goals were discussed. Her lipid profile will be rechecked. She will work on the above weight reduction program. Hyperglycemia 21565593 h er A1c will be rechecked. Ophthalmol ogy followup and proper foot care will be emphasized . Fatigue 33391530 the abo ve stress test will be ordered. A reconditio chuck program will be needed. Her labs will also include a CBC, CMP, TSH and B12 level. Vitamin D deficiency 08443699 her level will be checked to make sure that she is above 40 Megaloblas tic anemia due to vitamin B>12< deficiency 50709379 her level will be checked to make sure that she is above 669 [id number] ANN-MARIE BLANCO MD COL_DESK 42 GI [address] [place] [address] 01/17/2014 13:59:07 01/17/2014 15:38:32 Gastroesophageal reflux disease 414151484 Restarting Omeprazole 40 mg p.o. q. a.m. Also instructed patient on GERD lifestyle modificati ons. Pending response may require EGD to rule out GERD complicati ons. Patient understand s and agrees. Epigastric pain 65732586 Likely secondary to GERD however cannot rule out possible component of functional dyspepsia. Await response to restart of Omeprazole . Also instructed patient on GERD lifestyle modificati ons. As above, pending response may require EGD to rule out GERD complicati ons. Patient understand s and agrees. Obesity 796940974 S/p ~1 5 lb wt gain in [...] sx. Patient understand s and agrees. Diarrhea 91574900 Etiolo gy uncertain. Should rule out infectious [...] lab results. History of polyp of colon 221194310 Pt s/p colonoscop y sig for TA in 2011. Risks of missed polyps explained to pt. For repeat colonoscop y in 2017. Pt underastan ds and agrees. [id number] [facility] [address] [facility] [address] [place] [address] 02/24/2014 10:59:58 02/24/2014 11:44:28 Screening for malignant neoplasm of cervix 113449137 Anxiety disorder 826941545 Depressive disorder 04866625 [id number] [facility] [address] [facility] [address] [place] [address] 04/01/2014 10:37:51 04/01/2014 11:20:38 Depressive disorder 65717957 Anxiety disorder 977805198 [id number] BRAN GRAHAM MD COL_DESK 12 NEURO [address] [place] [address] 04/11/2014 10:59:53 04/11/2014 11:44:59 Migraine 24538042 Essential hypertension 40102935 Fatigue 46563554 Depressive disorder 69809069 Anxiety disorder 210507349 [id number] DIEGO LAY MD [email or web address] [address] [facility] [address] [place] [address] 04/22/2014 10:20:42 04/22/2014 10:41:58 Depressive disorder 08210775 Anxiety disorder 163439402 Hypercholesterolemia 56491445 [id number] ANN-MARIE BLANCO MD COL_DESK 42 GI [address] [place] [address] 11/14/2014 10:29:49 11/14/2014 11:48:46 Diarrhea 38663948 Advised patient that likely multifacto rial in [...] IBS-D. Patient understand s and agrees. Obesity 180542897 Patien t advised again on decreasing food portion sizes as well as increasing exercise by walking or working out in a pool if necessary. Again advised of possible benefit from participat ing in Weight Watchers or similar support group. Will continue to monitor weight loss at follow up visits. Patient understand s and agrees. Gastroesop hageal reflux disease 494841850 Well-contr olled with current PPI regimen. To continue the same in addition to continuing lifestyle changes. Patient to inform office if symptoms recur. Patient understand s and agrees. History of polyp of colon 206839998 Pt s/p colonoscop y sig for TA in 2011. Risks of missed polyps explained to pt. For repeat colonoscop y in 2016. Pt underastan ds and agrees. Generalize d abdominal pain 523510372 Etiology uncertain. S/p EGD & colonoscop y in 2011. Also advised pt to keep a food journal if symptoms recur. If symptoms recur to call office for possible evaluation w/ repeat EGD and colonoscop y. Pt understand s and agrees. [id number] ANN-MARIE BLANCO MD COL_DESK 42 GI [address] [place] [address] 04/24/2015 10:33:30 04/24/2015 11:48:16 Obesity 398581563 E66.9 Advised patient on decreasing food portion sizes. Advised patient that a food portion is ~ the size of the palm of her hand and ~2 inches high. Also encouraged patient to increase exercise by walking or working out in a pool if necessary. Will continue to monitor weight at follow up visits. Patient understand s and agrees. Epigastric pain 14777180 R10.13 Likely secondary to GERD however cannot rule out possible component of functional dyspepsia. Starting trial of PPI p.o. q. a.m. Also instructed patient on GERD lifestyle modificati ons. Pending response may require EGD to rule out GERD complicati ons. Patient understand s and agrees. Gastroesop hageal reflux disease 454052465 K21.9 S/p increasing dose of current PPI to BID without adequate response. Will change to different PPI. If no improvemen t may require EGD. Generalize d abdominal pain 640534218 R10.84 Resolved. To treat obesity as above. Also advised pt to keep a food journal if symptoms recur. If symptoms recur to call office for possible evaluation w/ imaging studies. Pt understand s and agrees. Diarrhea 07014200 R19.7 Much improved. Likely multifacto rial in [...] and agrees. History of polyp of colon 732185465 Z86.010 Pt s/p colonoscop y sig for TA in 2011. Risks of missed polyps explained to pt. For repeat colonoscop y in 2017. Pt underastan ds and agrees. Osteoporosis 70597086 M8 1.0 Due to risk of osteoporos is and patient's need for long-term PPI therapy, suggest bone density study to rule out osteopenia /osteoporo sis. Patient advised to continue Calcium + Vitamin D BID. Last BDS in 2013. Will schedule for bone density study with further recommenda tions pending results. [id number] BRAN GRAHAM MD COL_DESK 12 [address] [place] [address] 07/07/2015 10:40:08 07/07/2015 11:24:01 Migraine 46446697 G43.909 Depressive disorder 3548 9007 F32.9 Anxiety disorder 9813749 06 F41.9 Essential hypertension 20686691 I10 Intracrani al meningioma 091004971 D32.0 Tremor 09093651 R25.1 [id number] BRAN GRAHAM MD COL_DESK 12 NEUR[address] [place] [address] 11/30/2015 10:04:34 11/30/2015 10:38:32 Osteoporosis 13837898 M81.0 Generalize d abdominal pain 803526721 R10.84 Depressive disorder 3548 9007 F32.9 Anxiety disorder 9978804 06 F41.9 Migraine 19095004 G43.90 9 Intracrani al meningioma 604905666 D32.0 [id number] ANN-MARIE BLANCO MD COL_DESK 42 GI [address] [place] [address] 01/22/2016 09:27:38 01/22/2016 11:11:48 Gastroesophageal reflux disease 798556387 K21.9 Well controlled with Nexium 40 mg qd 30 min before meals. To cont the same. To continue the same in addition to continuing lifestyle changes. Patient to inform office if symptoms recur. Patient understand s and agrees. Obesity 419921258 E66.9 BMI: 37.6 Prior visit pt at BMI 39.2 in 228.2 lbs. Pt has lost ~10 lbs since last visit. To cont on decreasing food portion sizes and exercising in pool and golfing. Spoke to pt about weight loss sx with Dr. Echevarria. Will continue to monitor weight at follow up visits. Patient understand s and agrees. Epigastric pain 02443004 R10.13 Resolved. To cont as above. Patient understand s and agrees. Diarrhea 14012758 R19.7 No improvemen t - see HPI. [...] response. Pt understand s and agrees. Osteoporosis 30349065 M8 1.0 Last visit, we ordered a BDS - do not see results. To cont calcium and vit-D supplement . Will check records further / reorder study. Pt understand s and agrees. Nausea 019993074 R11.0 Occasional symptoms. ? Secondary to PUD [...] and agrees. History of polyp of colon 993447400 Z86.010 Pt s/p colonoscop y sig for TA in 2011. Risks of missed polyps explained to pt. For repeat colonoscop y in 2017. Pt understand s and agrees. [id number] ANN-MARIE BLANCO MD COL_DESK 42 GI [address] [place] [address] 07/15/2016 09:54:00 07/15/2016 11:23:56 Gastroesophageal reflux disease 092677774 K21.9 Well controlled with Nexium 40 mg qd 30 min before meals however due to possible diarrhea as s/e will d/c and start a trial of Dexilant 60 mg qAM.Cecile r recommenda tions pending response to therapy as well as colonoscop y and lab results +/- EGD is TTG positive Abdominal pain 73160951 R10.9 Likely multifacto rial in origin with a component secondary to patient's diarrhea.? Lactose intoleranc e.Await response to new dietary regimen including avoidance of coffee and lactose.Al so await colonoscop y results. Further recommenda tions to follow.May require initiation of antispasmo dic. Abdominal bloating 22277 9499 R14.0 Symptoms still persist despite attempts to [...] . Pt understand s and agrees. Diarrhea 64860482 R19.7 No improvemen t - see HPI. [...] & results.Pt understand s and agrees. Obesity 328535614 E66.9 Patient admits to a very sedentary [...] agrees. Screening for malignant neoplasm of colon 696293258 Z12.11 S/p colonoscop y in 2011 significan t for TA..Will schedule for a screening/ surveillan ce colonoscop y with future recommenda tions pending results. Risks of missed polyps, bleeding, pain & perforatio n explained to the pt. Pt understand s and agrees. History of polyp of colon 543814225 Z86.010 Pt s/p colonoscop y sig for TA in 2011. Risks of missed polyps explained to pt.For repeat colonoscop y now.Pt understand s and agrees. [id number] ANN-MARIE BLANCO MD [facility] [address] [place] [address] 11/15/2016 11:43:37 11/15/2016 14:03:40 Diarrhea 79906075 R19.7 Improved following dietary changes.Diane booth multifacto [...] understand s and agrees. Polyp of colon 96241527 K63.5 Pt s/p colonoscop y 07/2016 sig for TA. Risks of missed polyps explained to pt. For repeat colonoscop y in ~07/2021. Pt understand s and agrees. Gastroesop hageal reflux disease 321030419 K21.9 Assoc w/ wine & [place] food ingestion despite Omeprazole 40 mg qD.To cont PPI- BID.To call if breakthrou gh symptoms continue/w orsen. Nausea 333610142 R11.0 Resolved. ? Secondary to PUD vs GERD vs dietary indiscreti ons vs gastropare sis. To continue PPI therapy. To call office if symptoms recur. In addition if symptoms recur will consider requesting thyroid studies and celiac panel to rule out concomitan t illnesses. Abdominal pain 73001304 R10.9 Resolved. Etiology uncertain. Also advised pt to keep a food journal if symptoms recur. If symptoms recur to call office for possible evaluation w/ imaging studies. Pt understand s and agrees. Obesity 528573413 E66.9 Patient admits to a very sedentary lifestyle as well as depression which decreases her activity.P t requesting informatio n about the gastric sleeve option.Dis cussed at length with pt.Referri ng to Dr. Echevarria. [id number] BRAN GRAHAM MD [facility] [address] [facility] [place] [address] 03/31/2017 14:55:45 03/31/2017 16:19:02 Osteoporosis 56658116 M81.0 Generalize d abdominal pain 493636850 R10.84 Depressive disorder 3548 9007 F32.9 Anxiety disorder 3719747 06 F41.9 Migraine 02348163 G43.90 9 Intracrani al meningioma 887798323 D32.0 Tremor 85470887 R25.1 Obesity 564945704 E66.9 Insomnia 315107376 G47.0 0 [id number] BRAN GRAHAM MD [facility] [address] [place] [address] 12/22/2017 09:36:44 12/22/2017 10:11:18 Osteoporosis 15261242 M81.0 Generalize d abdominal pain 982978947 R10.84 Depressive disorder 3548 9007 F32.9 Anxiety disorder 0158226 06 F41.9 Migraine 27651673 G43.90 9 Intracrani al meningioma 910991132 D32.0 Tremor 60214819 R25.1 Obesity 004809276 E66.9 Insomnia 311073577 G47.0 0 [id number] BRAN GRAHAM MD [facility] [address] [place] [address] 01/23/2018 08:44:25 01/23/2018 09:33:38 Osteoporosis 01692424 M81.0 Generalize d abdominal pain 723538351 R10.84 Depressive disorder 3548 9007 F32.9 Anxiety disorder 8775850 06 F41.9 Migraine 91865369 G43.90 9 Intracrani al meningioma 334106137 D32.0 Tremor 35706194 R25.1 Obesity 173380840 E66.9 Insomnia 320051773 G47.0 0 Seizure disorder 8755632 02 G40.867 [id number] CHAZ HURT NP [facility] [address] [place] [address] 03/10/2018 14:22:03 03/10/2018 15:16:03 Abdominal pain 48313260 R10.9 Will check CBC and CT and [...] of the abdomen, bleeding per rectum. Diarrhea 03066432 R19.7 [id number] BRAN GRAHAM MD [facility] [address] [place] [address] 03/11/2018 12:54:27 03/11/2018 13:54:24 Osteoporosis 93703645 M81.0 Anxiety disorder 3148813 06 F41.9 Seizure disorder 6794648 02 G40.909 Generalize d abdominal pain 272841780 R10.84 Depressive disorder 3548 9007 F32.9 Tremor 00867694 R25.1 Migraine 79542777 G43.90 9 Intracrani al meningioma 954722687 D32.0 Obesity 868415251 E66.9 Insomnia 574048264 G47.0 0 [id number] BRAN GRAHAM MD [facility] [address] [place] [address] 04/01/2018 09:55:40 04/01/2018 10:25:46 Osteoporosis 85796680 M81.0 Anxiety disorder 4767796 06 F41.9 Seizure disorder 5939799 02 G40.909 Generalize d abdominal pain 156572295 R10.84 Depressive disorder 3548 9007 F32.9 Tremor 30672535 R25.1 Migraine 19133016 G43.90 9 Intracrani al meningioma 270100072 D32.0 Obesity 386128806 E66.9 Insomnia 468863169 G47.0 0 [id number] ANN-MARIE BLANCO MD [facility] [address] [place] [address] 06/22/2018 15:32:39 06/24/2018 10:42:07 Diarrhea 75542232 R19.7 Watery, explosive, w/ urgency, x~2-3 weeks, [...] well as lab results. Polyp of colon 25213737 K63.5 Pt s/p colonoscop y 07/2016 sig for TA. Risks of missed polyps explained to pt. For repeat colonoscop y in ~07/2021 or sooner PRN. Pt understand s and agrees. Gastroesop hageal reflux disease 926259980 K21.9 Well-contr olled with Nexium 40 mg qAM. To continue the same in addition to continuing lifestyle changes. Patient to inform office if symptoms recur. Patient understand s and agrees. Obesity 690047594 E66.9 BMI = 41, up from 38.6.Pt reports +++ stress over the past year.Patie nt advised again on decreasing food portion sizes as well as increasing exercise by walking or working out in a pool if necessary due to arthritis. Will continue to monitor weight loss at follow up visits. Patient understand s and agrees. Abdominal bloating 72154 9008 R14.0 Symptoms still persist despite attempts [...] . Pt understand s and agrees. Osteoporosis 71036028 M8 1.0 Last BDS was in 2016. [...] study with further recommenda tions pending results. [id number] BRAN GRAHAM MD [facility] [address] [place] [address] 07/23/2018 14:54:08 07/23/2018 15:25:51 Intracranial meningioma 729589473 D32.0 Seizure disorder 7105370 02 G40.909 Anxiety disorder 4063945 06 F41.9 Depressive disorder 3548 9007 F32.9 Tremor 33278558 R25.1 Migraine 20225961 G43.90 9 Obesity 160884395 E66.9 Disorder o f vitamin B12 434801268 E53.8 [id number] BRAN GRAHAM MD [facility] [address] [place] [address] 05/13/2019 09:44:20 05/13/2019 10:24:58 Intracranial meningioma 937601164 D32.0 Depressive disorder 3548 9007 F32.9 Seizure disorder 9969018 02 G40.909 Disorder o f vitamin B12 451444241 E53.8 Anxiety disorder 7200919 06 F41.9 Tremor 12594332 R25.1 Migraine 37753777 G43.90 9 Obesity 693633734 E66.9 [id number] BRAN GRAHAM MD [facility] [address] [place] [address] 09/01/2019 11:23:50 09/01/2019 12:35:29 Intracranial meningioma 632978226 D32.0 Depressive disorder 3548 9007 F32.9 Disorder o f vitamin B12 238778776 E53.8 Seizure disorder 7757835 02 G40.909 Anxiety disorder 8553707 06 F41.9 Tremor 43737765 R25.1 Migraine 40837587 G43.90 9 Obesity 362302589 E66.9 [id number] BRAN GRAHAM MD [facility] [address] [place] [address] 11/11/2019 12:57:58 11/11/2019 14:50:24 Tremor 14903624 R25.1 Intracrani al meningioma 344035659 D32.0 Depressive disorder 3548 9007 F32.9 Seizure disorder 1538836 02 G40.909 Anxiety disorder 5709490 06 F41.9 Migraine 88125176 G43.90 9 Obesity 871401188 E66.9 [id number] ANN-MARIE BLANCO MD [facility] [address] [place] [address] 11/22/2019 10:54:04 11/22/2019 12:19:21 Diarrhea 05451200 R19.7 ~1-3 loose stools daily, +/- fecal [...] literature given previously . Polyp of colon 17991407 K63.5 Pt s/p colonoscop y 07/2016 sig for TA. Risks of missed polyps explained to pt. For repeat colonoscop y in ~07/2021 or sooner PRN. Pt understand s and agrees. Gastroesop hageal reflux disease 943781602 K21.9 Well-contr olled with Omeprazole 40 mg qAM. To continue the same in addition to continuing lifestyle changes. Patient to inform office if symptoms recur. Patient understand s and agrees. Obesity 648649264 E66.9 BMI = 42.9, up from 41, up from 38.6. ~250 lbsPt reports +++ stress over the past year.Patie nt advised again on decreasing food portion sizes as well as increasing exercise by walking or working out in a pool if necessary due to arthritis. Will continue to monitor weight loss at follow up visits. Patient understand s and agrees. Abdominal bloating 3621951 2211 R14.0 Symptoms still persist despite attempts to [...] . Pt understand s and agrees. Osteoporosis 92458501 M8 1.0 Last BDS was in 2016. [...] tions pending results. Incontinence of feces 72 735288 R15.9 Etiology likely multifacto rial in origin [...] possible biofeedbac k training. Pre-surgery testing 1104 20289 Z01.89 For COVID testing prior to any outpt GI procedure. Dysphagia 07033253 R13.1 0 Likely secondary to patient's GERD. To continue Omeprazole 40 mg po qAM. Also scheduling for EGD to rule out GERD complicati ons as well as EoE. If patient does not respond to the PPI trial, may also require esophagram to rule out motility disorder. [id number] ANN-MARIE BLANCO MD [facility] [address] [place] [address] 01/10/2020 15:52:14 01/10/2020 16:48:46 Diarrhea 55378056 R19.7 Currently having ~1-2 semi formed BM [...] literature given previously . Polyp of colon 02659181 K63.5 S/p repeat colon 12/01/2019- Neg for colitis, + for a polyp in the rectosigmo id colon.Risk s of missed polyps explained to pt. For repeat colonoscop y in ~5 years or sooner PRN. Pt understand s and agrees. Pt s/p colonoscop y 07/2016 sig for TA. Gastroesop hageal reflux disease 092045488 K21.9 S/p EGD 12/01/2019- Sig for gastritis. Well-contr olled with Omeprazole 40 mg qAM. To continue the same in addition to continuing lifestyle changes. Patient to inform office if symptoms recur. Patient understand s and agrees. Obesity 278821775 E66.9 2' to leg brace, pt not [...] Patient understand s and agrees. Abdominal bloating 2097448 5209 R14.0 Much improved. Likely multifacto rial in [...] previously ) understand s and agrees. Osteoporosis 02775117 M8 1.0 Last BDS was in 2016. [...] tions pending results. Incontinence of feces 72 351365 R15.9 Secondary to watery / loose stools as since her symptoms resolved following an increase in fiber in her diet and increasing the bulk of her stool. Advised patient to continue her high fiber diets. Also advised patient to perform anal sphincter strengthen ing exercises several times daily and as needed. Fiber literature given previously . To call office if episodes recur. Dysphagia 06084523 R13.1 0 Resolved. Likely secondary to patient's GERD. To continue Omeprazole 40 mg po qAM. Also scheduling for EGD to rule out GERD complicati ons as well as EoE. If patient does not respond to the PPI trial, may also require esophagram to rule out motility disorder. Fatigue 20640217 R53.83 ? 2' to changed to Dr. Ori Cancino. Requesting copies of lab work. To f/u w/ Dr. Cancino as well. [id number] BRAN GRAHAM MD [facility] [address] [place] [address] 05/12/2020 13:45:36 05/12/2020 14:33:39 Tremor 75247530 R25.1 Intracrani al meningioma 282913805 D32.0 Depressive disorder 3548 9007 F32.9 Seizure disorder 5996846 02 G40.909 Anxiety disorder 0138936 06 F41.9 Migraine 36197605 G43.90 9 Obesity 623671683 E66.9 Memory impairment 200521 006 R41.3 [id number] BRAN GRAHAM MD [facility] [address] [place] [address] 12/22/2020 14:34:50 12/22/2020 15:09:13 Memory impairment 911357226 R41.3 Tremor 46841002 R25.1 Seizure disorder 1290125 02 G40.909 Intracrani al meningioma 017194570 D32.0 Depressive disorder 3548 9007 F32.9 Anxiety disorder 6028954 06 F41.9 Migraine 84523644 G43.90 9 Obesity 273614892 E66.9 [id number] SOCORRO WU APRN [facility] [address] [place] [address] 11/19/2021 09:28:15 11/19/2021 10:06:14 Diarrhea 63748099 R19.7 Improved. Currently having 2-3 formed BM daily w/ Metamucil. 1-2 loose stool episodes a month now. Any loose episodes are assoc w/ dietary indiscreti ons.Advise d patient on increasing dietary fiber as well as avoiding lactose.Fi harika literature given previously . S/p EGD & colonoscop y 11/2019- S/p Neg random bx'sOther w/u including TFT, negative to date. Polyp of colon 90563112 K63.5 S/p repeat colon 12/01/2019- Neg for colitis, + for a polyp in the rectosigmo id colon. Risks of missed polyps explained to pt. For repeat colonoscop y in ~5 years or sooner PRN. Pt understand s and agrees. Pt s/p colonoscop y 07/2016 sig for TA. Gastroesop hageal reflux disease 358266116 K21.9 S/p EGD 12/01/2019- Sig for gastritis. Well-contr olled with Pantoprazo le 40mg qAM. Previously on Omeprazole 40 qAM. To continue the same in addition to continuing lifestyle changes. Patient to inform office if symptoms recur. Patient understand s and agrees. Obesity 340588525 E66.9 BMI = 41.2 no change in weight since last visitPatie nt advised again on decreasing food portion sizes as well as increasing exercise by walking or working out in a pool if necessary due to arthritis. Will continue to monitor weight loss at follow up visits.Emilie caraballo understand s and agrees. Abdominal bloating 84833 9008 R14.0 Much improved. 1-2 episodes a [...] previously ) understand s and agrees. Osteoporosis 86875068 M8 5.88 Last BDS was in 2015. Due to risk of osteoporos is and patient's need for long-term PPI therapy, suggest bone density study to rule out osteopenia /osteoporo sis. Will schedule for bone density study with further recommenda tions pending results. Patient advised to continue Calcium + Vitamin D BID. Incontinence of feces 72 071944 R15.9 Secondary to watery / loose stools [...] To call office if episodes recur. Dysphagia 47207206 R13.1 0 Resolved. Likely secondary to patient's GERD. To continue Pantoprazo le 40 mg po qAM. If symptoms return or worsen may also require esophagram to rule out motility disorder. [id number] ANN-MARIE BLANCO MD [facility] [address] [place] [address] 11/29/2022 13:55:48 11/29/2022 14:42:52 Diarrhea 97502634 R19.7 Improved. Currently having 2-3 formed BM daily w/ Metamucil. 1-2 loose stool episodes a month now. Any loose episodes are assoc w/ dietary indiscreti ons.Advise d patient on increasing dietary fiber as well as avoiding lactose.Fi harika literature given previously . S/p EGD & colonoscop y 11/2019- S/p Neg random bx'sOther w/u including TFT, negative to date. Polyp of colon 99024544 K63.5 S/p repeat colon 12/01/2019- Neg for colitis, + for a polyp in the rectosigmo id colon. Risks of missed polyps explained to pt. For repeat colonoscop y in ~5 years or sooner PRN. Pt understand s and agrees. Pt s/p colonoscop y 07/2016 sig for TA. Gastroesop hageal reflux disease 651543920 K21.9 S/p EGD 12/01/2019- Sig for gastritis. Well-contr olled with Pantoprazo le 40mg qAM. Previously on Omeprazole 40 qAM. To continue the same in addition to continuing lifestyle changes. Patient to inform office if symptoms recur. Patient understand s and agrees. Obesity 598354204 E66.9 Patient advised again on decreasing food portion sizes as well as increasing exercise by walking or working out in a pool if necessary due to arthritis. Will continue to monitor weight loss at follow up visits.Emilie caraballo understand s and agrees. Abdominal bloating 98988 9008 R14.0 Much improved. 1-2 episodes a [...] previously ) understand s and agrees. Osteoporosis 78124681 M8 5.88 BDS 2021 sig for osteopenic changesDue to risk of osteoporos is and patient's need for long-term PPI therapy, suggest bone density study to rule out osteopenia /osteoporo sis. Will schedule for bone density study with further recommenda tions pending results. Patient advised to continue Calcium + Vitamin D BID. Incontinence of feces 72 688942 R15.9 Secondary to watery / loose stools [...] To call office if episodes recur. Dysphagia 13454449 R13.1 0 Resolved. Likely secondary to patient's GERD. To continue Pantoprazo le 40 mg po qAM. If symptoms return or worsen may also require esophagram to rule out motility disorder. [id number] ANN-MARIE BLANCO MD [facility] [address] [place] [address] 01/20/2023 13:51:03 01/20/2023 14:47:42 Gastroesophageal reflux disease without esophagitis 881316779 K21.9 + Breakthrou gh symptoms despite Protonix qAM. Improved w/ Pepcid PRN.To take the Pepcid qHS, not PRN.To continue the same in addition to continuing lifestyle changes.[place]y frost to inform office if symptoms recur.Alina wild understand s and agrees. Previously on Omeprazole 40 qAM. Diarrhea 66622841 R19.7 Well controlled w/ Metamucil + protein shake qAM. Having 1-2 soft stools daily.Any loose episodes are assoc w/ dietary indiscreti ons.Advise d patient on increasing dietary fiber as well as avoiding lactose.Fi harika literature given previously . S/p EGD & colonoscop y 11/2019- S/p Neg random bx'sOther w/u including TFT, negative to date. Polyp of colon 59051385 K63.5 S/p repeat colon 12/01/2019- Neg for colitis, + for a polyp in the rectosigmo id colon. Risks of missed polyps explained to pt. For repeat colonoscop y in ~5 years or sooner PRN. Pt understand s and agrees. Pt s/p colonoscop y 07/2016 sig for TA. Obesity 140675905 E66.9 BMI= 41.2, ~240 lbs. S/p ~5 lb wt gain since her last visit.Alina wild advised again on decreasing food portion sizes as well as increasing exercise by walking or working out in a pool if necessary due to arthritis. Will continue to monitor weight loss at follow up visits.Emilie caraballo understand s and agrees. Osteoporosis 33486063 M8 5.88 BDS 2021 sig for osteopenic changesDue to risk of osteoporos is and patient's need for long-term PPI therapy, suggest bone density study to rule out osteopenia /osteoporo sis. Will schedule for bone density study with further recommenda tions pending results. Patient advised to continue Calcium + Vitamin D BID. Incontinence of feces 72 584339 R15.9 Resolved. Advised patient to continue her high fiber diets. Also advised patient to perform anal sphincter strengthen ing exercises several times daily and as needed. Fiber literature given previously . To call office if episodes recur. [id number] ANN-MARIE BLANCO MD [facility] [address] [place] [address] 06/09/2023 13:22:19 06/09/2023 15:08:44 Gastroesophageal reflux disease without esophagitis 966658065 K21.9 Well controlled w/ Protonix 40 mg qAM & Pepcid 40 mg qHS PRN (usually 1-2/wk)To cont the same in addition to continuing lifestyle changes.[place]y frost to inform office if symptoms recur.Alina ent understand s and agrees. Previously on Omeprazole 40 qAM & Protonix qAM only. Diarrhea 88013701 R19.7 Well controlled w/ Metamucil + protein shake qAM. Having 1-2 soft stools daily.Any loose episodes are assoc w/ dietary indiscreti ons.Advise d patient on increasing dietary fiber as well as avoiding lactose.Fi harkia literature given previously . S/p EGD & colonoscop y 11/2019- S/p Neg random bx'sOther w/u including TFT, negative to date. Polyp of colon 99167283 K63.5 S/p repeat colon 12/01/2019- Neg for colitis, + for a polyp in the rectosigmo id colon. Risks of missed polyps explained to pt. For repeat colonoscop y in ~5 years or sooner PRN. Pt understand s and agrees. Pt s/p colonoscop y 07/2016 sig for TA. Obesity 546825944 E66.9 BMI= 41.2, ~240 lbs. S/p ~5 lb wt gain since her last visit.Alina wild advised again on decreasing food portion sizes as well as increasing exercise by walking or working out in a pool if necessary due to arthritis. Will continue to monitor weight loss at follow up visits.Emilie caraballo understand s and agrees. Osteoporosis 60977098 M8 5.88 BDS 12/25/2021 sig for osteopenic changesDue to risk of osteoporos is and patient's need for long-term PPI therapy, suggest bone density study to rule out osteopenia /osteoporo sis. Will schedule for bone density study with further recommenda tions pending results. Patient advised to continue Calcium + Vitamin D BID. Incontinence of feces 72 225982 R15.9 S/p recurrence ~2/month.T o keep a food journalTo increase her Metamucil to BID.Advise d patient to continue her high fiber diets. Also advised patient to perform anal sphincter strengthen ing exercises several times daily and as needed. Fiber literature given previously . To call office if episodes recur. Dysphagia 93354474 R13.1 0 Resolved. Likely secondary to patient's [...] 12/22/2020 1 [place] Silvana F Payam [id number] Silvana F Payam 12/22/2020 2 [employer] OPTION - PLAN F (MEDICARE SUPPLEMENT) Silvana Zehra Jain Payam [id number] Silvana F Payam 11/19/2021 1 [place] Silvana F Payam [id number] Silvana F Payam 11/19/2021 2 [employer] OPTION - PLAN F (MEDICARE SUPPLEMENT) Silvana F Jain Payam [id number] Silvana F Payam 11/29/2022 1 [place] Silvana F Payam [id number] Silvana F Payam 11/29/2022 2 [employer] OPTION - PLAN F (MEDICARE SUPPLEMENT) Silvana F Jain Payam [id number] Silvana F Payam 01/20/2023 1 [place] Silvana F Payam [id number] Silvana F Payam 01/20/2023 2 [employer] OPTION - PLAN F (MEDICARE SUPPLEMENT) Silvana F Jain Payam [id number] Silvana F Payam 06/09/2023 1 [place] Silvana F Payam [id number] Silvana F Payam 06/09/2023 2 [employer] HE[employer] OPTION - PLAN F (MEDICARE SUPPLEMENT) Silvana Jain Payam [id number] Silvana Shahid Payam Notes Date Note Type Note Provider [...] of multiple GI complaints. SOCORRO WU APRN [address] [place], [address], [facility] [place] 11/19/2021 11:00:50 11/29/2022 text/html DysphagiaReporte d bypatient.Location:thro [...] f/u of multiple GI complaints. SOCORRO WU, ASSOCIATE ACCOUNT MANAGER [address] [place], [address], [place] [facility] [place] 11/29/2022 15:51:57 01/20/2023 text/html DysphagiaReporte d bypatient.Location:thro [...] of multiple GI complaints. ANN-MARIE BLANCO MD [address] [place], [address], [place] [facility] [place] 02/07/2023 16:58:22 06/09/2023 text/html DysphagiaReporte d bypatient.Location:thro [...] of multiple GI complaints. ANN-MARIE BLANCO MD [facility] [place], [address], [facility]14 [place] 07/24/2023 13:47:18 OBGyn Episode No OBEpisode recorded.
--- OUTSIDE RECORDS SUMMARY | 2024-07-22 14:55 | XMS_ITS | Continuity of Care Document ---
Author Organization [facility] Address [address] [place] [address] [place] [address] Phone Care Team Providers Care Garbage Man Name Role Phone Ildefonso Peralta MD Unavailable Unavailable Allergies, Adverse Reactions, Alerts Substance Reaction Status Criticality No Known Allergies Active No Inform ation Medications Medication Instructions Dosage Effective Dates (start - stop) Status Comments Paxil 30 mg tablet take 1 tablet by oral route every day 30 MG - Active Synthroid 25 mcg tablet take 1 tablet by oral route every day 25 MCG - Active ofloxacin 0.3 % ear drops instill 10 drop by otic route every day into affected ear(s) 1.5 MG - Active use for 7 d ays losartan 50 mg tablet take 1 tablet [...] Copied on Encounter OFFICE/OUTPA TIENT VISIT, EST [facility], [address], [place], [place], [id number], [place] tel:[phone] [facility] ear pain1 (chief complaint) hypothyroi dism1 (chief complaint) anxiety1 (chief complaint) Otalgia, right earGeneralized Anxiety DisorderHypothyroid ism May- 5 Fabian Fregoso. [address], [place], [place], [id number] , [place]. tel:[phone] [facility], [address], [place], [place], [address], [place] tel:[phone] [facility] No Information 5 Fabian Ildefonso. [address], [place], [place], [id number] , [place]. tel:[phone] OFFICE/OUTPA TIENT VISIT, [facility], [place], [address], [place], [place], [address], [place] tel:[phone] [facility] sick (chief complaint) HLP (chief complaint) tremor1 (chief complaint) HTN (chief complaint) Acute bronchitisEssential (primary) hypertensionTremorM ixed hyperlipidemia 5 Fabian Fregoso. [address], [place], [place], [id number] , [place]. tel:[phone] [facility], [address], [place], [place], [address], [place] tel:[phone] [facility] No Information 5 Fabian Ildefonso. [address], [place], [place], [address] , [place]. tel:[phone] [facility], [address], [place], [place], [address], [place] tel:[phone] [facility] No Information 5 Fabian Fregoso. [address], [place], [place], [address] , [place]. tel:[phone] OFFICE/OUTPA TIENT VISIT, [facility], [address], [place], [place], [address], [place] tel:[phone] [facility] thyroid1 (chief complaint) anxiety1 (chief complaint) HTN (chief complaint) seizure1 (chief complaint) HLP (chief complaint) tremor1 (chief complaint) HypothyroidismTremo rEssential (primary) hypertensionMixed hyperlipidemiaOther epilepsyGeneralized Anxiety DisorderPolyp of colonOsteopenia 5 Fabian Fregoso. [address] [place], [place], [address] , [place]. tel:[phone] Family History Family Member Type Diagnosis Age At Onset Father Problem of 90 old age Sister Problem essential tremor Mother Problem of 80s ?? CVA Payers Payer name Insurance type Covered republican ID Authoriza tion(s) [employer] [place] WPS MB [id number] Aarp Secondary CI [id number] Social History Type Description Quantity Date Captured [...] ordered Referral Referred To: FLAKITO VAUGHN [address] [place], [place], [phone] Ordered: Referrals: Allopathic & Osteopathic Physicians : Psychiatry & Neurology : Neurology. FLAKITO VAUGHN. Evaluate and treat ordered History Of Present Illness Encounter Date Complaint History Of Prese nt Illness ear pain1 pt was treated w [facility] [...] in the past Pt denies any fever. anxiety1 Pt has chronic a nxiety and depression Pt takes paxil and doing ok Pt denies any suicidal or homicidal thought Pt denies any crying spells hypothyroidism1 Pt has hypothyro idism pt denies any dysphagia or neck pain Pt needs synthroid refilled HTN Pt has HTN Pt ta kes [...] ssential tremor. pt was seeing neurology in [place]. She just moved here .Pt needs referral to neurology Pt is on primidone for the past several years but has not helped much. Her neurologist in [place] ruled her out of parkinson disease. HLP [...] Mental Status Date Cognitive Assessment Orientation - [place] ed to time, place, person, situation.
--- OUTSIDE RECORDS SUMMARY | 2024-07-22 14:55 | XMS_ITS | Encounter Summary ---
Author Organization [facility] Address [address] [place] [address] Care Team Providers Care Body Coverer Name Role Phone Jose Norton MD Primary Care Provider [phone] Encounter Details Date Type Department Care Team (Late st Contact Info) Description 05/13/2024 Abstract [facility], [address] [place], [place] [id number] Robe Mendoza MA Social History Tobacco Use [...] Description 08/24/2024 1:00 PM CDT Office Visit [facility] - [address], [address] [place] [id number] Monet Beltran MD [address] [place] [address] 09/03/2024 12:00 PM CDT Office Visit [facility]-[address] [address] Sadie Villasenor MD [facility] [address] [place] [address] documented as of this encounter Procedures Procedure [...] on filedocumented in this encounter Care Teams Body Coverer Relationship Specialty Start Date End Date Jose Norton MD [address] [place], [place] [id number] PCP - General FAMILY PRACTICE 02/13/24 documented as of this encounter
--- OUTSIDE RECORDS SUMMARY | 2024-07-22 14:55 | XMS_ITS | Data Portability ---
Author Organization [place] - [facility] [employer], Main Office Address [address] [place] [address] Assessment No assessment recorded. Plan of Treatment Reminders Order Date Submit Date Provider Last Modified By Organization Details Last Modified Time Details Appointments None recorded. Lab None recorded. Referral None recorded. Procedures None recorded. Surgeries None recorded. Imaging CT, sinuses, w/o contrast - [facility]. PLEASE GIVE PATIENT A COPY OF DISK. FAX RESULTS TO . THANKS! 2024 025 [facility] [place] [address] [facility], [address], [place] [address], [place], [address], 5 16:40:55 Medication Orders fluticasone propionate 50 mcg/actuati on nasal spray,suspe nsion 2024 025 [id number], [address] [place], [place], [id number], 5 16:57:18 doxycycline hyclate 100 mg tablet 2024 025 [facility] #[id number], [address] [place], [place], [id number], 5 16:57:19 Medrol (Robles) 4 mg tablets in a dose pack 2024 025 [facility] #[id number], [address] [place], [place], [id number], 5 16:57:17 Patient TargetsNo targets recorded. Patient Instructions Encounter Date Encounter Id Patient Instructions Last Modified By Organization Details Last Modified Time 06/22/2024 [id number] prescribed doxycycline and Medrol Dosepak for antimicrobial coverage and inflammation reduction due to persistent chronic sinusitis. Additionally prescribed fluticasone nasal spray for management. Discussed use of the Valsalva maneuver to aid in opening left Eustachian tube. She will have a sinus CT completed. We will follow up those results become available. [email or web address] Not available 06/23/2024 10:12:28 Reason for Referral None Reported. Problems Name Problem SNOMED Code Status Onset Date Resolution Date Notes Provider Name and Address Organization Details Recorded Time Chronic sinusitis 90095629 Active 2024 Deidre delaney [facility] 16:46:47 Dysfunction of left eustachian tube 4087377973340 106 Active 2024 Laura Tiwari, [facility] [address] [facility], [facility] [address], [place], [address], [facility] [employer] [facility] 10:11:22 Problem Notes None recorded. Procedures Surgical History Date Name Laterality Status Provider Name and Address Organization Details Recorded Time craniotomy completed Laura Jett RN [facility] 06/23/2024 09:48:25 Sinus Surgery completed Laura Jett RN [facility] 06/23/2024 09:48:32 total knee replacement completed Laura Jett RN [facility] 06/23/2024 09:48:45 excision of bunion completed Laura Jett RN [facility] 06/23/2024 09:48:57 Cholecystectomy completed Laura Jett RN [facility] 06/23/2024 09:49:03 myringotomy and insertion of tympanic ventilation tube completed Laura Jett RN [facility] 06/23/2024 09:49:32 Imaging Results None recorded. Procedure [...] Address Organization Details Last Updated DateTime 06/22/2024 989672.95 g 41.7 kg/m2 162.56 cm 97.6 [degF] Laura Tiwari, [facility] [address] [facility], [facility] [address], [place], [address] , [place] [facility] 06/22/2024 16:47:09 Social History None recorded. Functional Status None recorded. Mental Status None recorded. Family History Nothing Reported. Medical History Condition Response SEIZURES/EPILEPSY Y OBESITY Y EAR OR HEARING PROBLEMS Y HYPOTHYROIDISM Y ENT Y DEPRESSION (INCLUDING POST ) Y HYPERTENSION Y HIGH CHOLESTEROL / HYPERLIPIDEMIA Y Gynecological HistoryNo gynecological history recorded. Obstetrics History GPAL:G 0 P 0 0 0 0 Past Encounters Encounter ID Performer Location Encounter Start Date Encounter Closed Date Diagnosis/Indication Diagnosis SNOMED-CT Code Diagnosis ICD10 Code Diagnosis Note [id number] Javier Ross MD [facility] [place] [address] [place] [address] 06/22/2024 16:14:45 06/23/2024 10:13:04 Chronic sinusitis 88507358 J32.9 Dysfunctio n of left eustachian tube 0147788670 251941 H69.92 Health Concerns Section Related Observation LastModified by Organization Detai ls LastModified Time None Recorded Concern Status LastModified by Organization Details LastModified Time None Recorded Advance Directives Directive None Recorded Payers Encounter Date Sequence Insurance Name Policy Number Policy Schilling Covered Member ID Schilling Member ID Guarantor Name 06/22/2024 1 [place] Silvana Hare [id number] Silvana Hare 06/22/2024 2 [facility] (MEDICARE SUPPLEMENT) Silvana Hare [id number] Silvana Hare Notes Date Note Type Note [...] not had any recent imaging. Laura Tiwari, [employer] [address] [facility], [facility] [address], [place], [address], [facility] 06/23/2024 10:12:31 OBGyn Episode No OBEpisode recorded.
--- OUTSIDE RECORDS SUMMARY | 2024-07-22 14:56 | XMS_ITS | Data Portability ---
Author Organization [place] - [employer], [employer], [facility] Address [address] [place] [address] Care Team Providers Care Dietary Cook Name Role Phone DEBI MATOS Primary Care Provider [phone] KARAN YAP Referring Provider ANN-MARIE KLINE Referring Provider BRENDA PROCTOR OTHER [...] Care Coordination (not separately reported) Additional notes: [email or web address] Not available 08/12/2023 16:50:23 09/30/2023 09/30/2023 A [...] Care Coordination (not separately reported) Additional notes: [email or web address] Not available 09/30/2023 14:03:40 11/26/2023 11/26/2023 A [...] None recorded. Lab respiratory allergen panel - [facility] 2023 024 [place] [facility], [address] [place], [address], 4 04:34:48 CBC 2023 024 [place] [facility], [address], [place], [address], 4 04:34:56 vitamin B12 2014 015 kalyan [email or web address] [facility], [address] [place], [address], 5 10:40:49 insulin like growth factor 1 (igf-I) [address] [facility], [address], [place], [address], 5 10:40:49 cortisol, free 24-hour urine lc/ms/ms [address] [facility], [address], [place], [address], 5 10:40:49 comprehensi ve metabolic panel 2014 015 [address] [facility] [place] [facility], [address], [place], [address], 5 10:40:49 T4 free 2014 015 [address] [facility] [place] [facility], [address], [place], [address], 5 10:40:49 thyroid stimulating hormone (TSH) 2014 015 [address] [facility] [place] [facility], [address] [place], [address], 5 10:40:49 venipunctur e 1 2014 015 [address] [facility] [place] [facility], [address], [place], [address], 5 10:40:49 Referral None recorded. Procedures noninvasive ear or pulse oximetry by continuous overnight monitoring (PROC) 2023 024 ANTHONY Not available 13:19:27 polysomnogr aphy, split night (PROC) - split night with bipap titration 2023 024 [email or web address] Ree Hairston MD, [address] [facility] [address], [place], [address], 09:24:04 Surgeries None recorded. Imaging CT, chest, w/o contrast 2023 024 [facility], [address], [place], [address], 4 09:19:53 Medication Orders codeine 10 mg-guaifene sin 100 mg/5 mL oral liquid 2014 015 [email or web address] Not available 5 16:16:12 Patient TargetsNo targets recorded. Patient Instructions Encounter Date Encounter Id Patient Instructions Last Modified By Organization Details Last Modified Time 08/12/2023 [id number] maggy's thyroiditis: care instructions [email or web address] Not available 08/12/2023 16:49:24 pneumonia: care instructions [email or web address] Not available 08/12/2023 16:49:24 sleep apnea: car e instructions [email or web address] Not available 08/12/2023 16:49:24 -Outside records from patient's hospitalization at [facility] reviewed in detail as well as records in [place] from primary care and cardiology reviewed -Please note: This note was completed using a voice recognition software. All reasonable attempts have been made to correct errors, however; any typographical, unanticipated grammatical, syntax, homophones and other interpretative errors are unintentional. Please disregard these errors. [email or web address] Not available 08/12/2023 16:51:33 09/30/2023 [id number] epworth sleepine ss scale* [email or web address] Not available 09/30/2023 14:07:22 complete PFT w/ post bronchodilator spirometry* [place] Not available 02/01/2024 04:21:33 -Outside records from patient's hospitalization at [facility] reviewed in detail as well as records in [place] from primary care and cardiology reviewed -Please note: This note was completed using a voice recognition software. All reasonable attempts have been made to correct errors, however; any typographical, unanticipated grammatical, syntax, homophones and other interpretative errors are unintentional. Please disregard these errors. Not available 09/29/2023 18:37:41 11/26/2023 [id number] high cholesterol : care instructions Not available 11/26/2023 12:15:02 -Outside records from patient's hospitalization at [facility] reviewed in detail as well as records in [place] from primary care and cardiology reviewed -Please note: This note was completed using a voice recognition software. All reasonable attempts have been made to correct errors, however; any typographical, unanticipated grammatical, syntax, homophones and other interpretative errors are unintentional. Please disregard these errors. [email or web address] Not available 11/26/2023 01:14:04 Reason for Referral None Reported. Results Created Date Observation Date Name Description Value Unit Range Abnormal Flag Note LastModifiedBy Organization Detail LastModifiedTime 10/21/19 15 10/28/2014 CMP, serum or plasm a glucose 105 mg/dL 65-99 high Fasti ng refer ence inter ricky Not Available [facility] [address] [place], [address], 11/17/2014 15:37:23 10/21/19 15 10/28/2014 CMP, serum or plasm a urea nitrogen (BUN) 13 mg/dL 7-25 Not Available [facility] [address], [place], [address], 11/17/2014 15:37:23 10/21/19 15 10/28/2014 CMP, serum or plasm a creatinine 0.64 mg/dL 0.60-0 .93 For patie nts >49 years of age, the refer ence limit for Creat inine is appro ximat jerson 13% highe r for peopl e ident ified as Afric an-Am marimar n. Not Available [facility] [address], [place], [address], 11/17/2014 15:37:23 10/21/19 15 10/28/2014 CMP, serum or plasm a eGFR non-afr. angolan 90 mL/mi n/1.7 3m2 > or = 60 Not Available [facility] [address] [place], [address], 11/17/2014 15:37:23 10/21/19 15 10/28/2014 CMP, serum or plasm a eGFR 104 mL/mi n/1.7 3m2 > or = 60 Not Available [facility] [address] [place], [place] [address]y [address] [place], [address], 11/17/2014 15:37:23 10/21/19 15 10/28/2014 CMP, serum or plasm a BUN/creatini ne ratio NOT APPLIC ABLE (calc ) 6-22 Not Available [facility] [address] [place], [place] [address]y [address] [place], [address], 11/17/2014 15:37:23 10/21/19 15 10/28/2014 CMP, serum or plasm a sodium 141 mmol/ L 135-14 6 Not Available [facility] [address] [place], [place] [address]y [address] [place], [address], 11/17/2014 15:37:23 10/21/19 15 10/28/2014 CMP, serum or plasm a potassium 3.8 mmol/ L 3.5-5. 3 Not Available [facility] [address] [place], [place] [address] [address] [place], [address], 11/17/2014 15:37:23 10/21/19 15 10/28/2014 CMP, serum or plasm a chloride 103 mmol/ L 98-110 Not Available [facility] [address] [place], [place] [address] [address] [place], [address], 11/17/2014 15:37:23 10/21/19 15 10/28/2014 CMP, serum or plasm a carbon dioxide 27 mmol/ L 19-30 Not Available [facility] [address] [place], [place] [address] [address] [place], [address], 11/17/2014 15:37:23 10/21/19 15 10/28/2014 CMP, serum or plasm a calcium 9.6 mg/dL 8.6-10 .4 Not Available [facility] [address] [place], [place] [address], [place], [address], 11/17/2014 15:37:23 10/21/19 15 10/28/2014 CMP, serum or plasm a protein, total 6.5 g/dL 6.1-8. 1 Not Available [facility] [address] [place], [place] [address], [place], [address], 11/17/2014 15:37:23 10/21/19 15 10/28/2014 CMP, serum or plasm a albumin 4.2 g/dL 3.6-5. 1 Not Available [facility] [address] [place], [place] [address] [address] [place], [address], 11/17/2014 15:37:23 10/21/19 15 10/28/2014 CMP, serum or plasm a globulin 2.3 g/dL_ (calc ) 1.9-3. 7 Not Available [facility] [address] [place], [place] [address] [address] [place], [address], 11/17/2014 15:37:23 10/21/19 15 10/28/2014 CMP, serum or plasm a albumin/glob ulin ratio 1.8 (calc ) 1.0-2. 5 Not Available [facility] [address] [place], [place] [address], [place], [address], 11/17/2014 15:37:23 10/21/19 15 10/28/2014 CMP, serum or plasm a bilirubin, total 0.5 mg/dL 0.2-1. 2 Not Available [facility] [address] [place], [place] [address], [place], [address], 11/17/2014 15:37:23 10/21/19 15 10/28/2014 CMP, serum or plasm a alkaline phosphatase 83 U/L 33-130 Not Available [facility] [address] [place] [address] [address] [place], [address], 11/17/2014 15:37:23 10/21/19 15 10/28/2014 CMP, serum or plasm a AST 18 U/L 10-35 Not Available [facility] [address] [place] [address] [address] [place], [address], 11/17/2014 15:37:23 10/21/19 15 10/28/2014 CMP, serum or plasm a ALT 16 U/L 6-29 Not Available [facility] [address] [place] [address], [address], 11/17/2014 15:37:23 10/21/19 15 10/28/2014 T4, free, serum T4, free 1.0 NG/dL 0.8-1. 8 Not Available [facility] [address] [place] [address], [address], 11/17/2014 15:37:24 10/21/19 15 10/28/2014 TSH, serum or plasm a TSH 2.43 mIU/L 0.40-4 .50 Not Available [facility] [address] [place] [address], [address], 11/17/2014 15:37:25 10/21/19 15 10/28/2014 vitam in B12, serum vitamin B12 715 pg/mL 200-11 00 REPOR T COMME NT: FASTI NG:NO Not Available [facility] [address] [place] [address] [address] [facility], [place], [address], 11/17/2014 15:37:26 10/21/19 15 10/28/2014 igf-1 (insu nuzhat gamez growt h facto r), serum igf I, lc/MS 129 NG/mL 34-245 Not Available [facility] [address] [facility] [address] [place], [address], 11/17/2014 15:37:27 10/21/19 15 10/28/2014 igf-1 (insu katerine-l franco growt h facto r), serum Z score (female) 0.4 SD -2.0 - +2.0 This test was julietel dom and its perfo rmanc e mario cteri stics have been deter mined by Thierry Perez . Perfo rmanc e mario cteri stics refer to the jessica tical perfo rmanc e of the test. Not Available [facility] [address] [facility] [address] [place], [address], 11/17/2014 15:37:27 10/21/19 15 10/28/2014 corti miah, free, 24-ho ur urine total volume 1000 mL Not Available [facility] [address] [facility] [address] [place], [address], 11/17/2014 15:37:28 10/21/19 15 10/28/2014 corti miah, free, 24-ho ur urine cortisol, free, urine 17.8 mcg/2 4_h 4.0-50 .0 Jessica sis perfo rmed by Kimberlyn Arriaga Spect romet ry Not Available [facility] [address] [facility] [address] [place], [address], 11/17/2014 15:37:28 10/21/19 15 10/28/2014 corti miah, free, 24-ho ur urine creatinine, urine 1.14 g/24_ h 0.63-2 .50 Not Available [facility] [address] [facility] [address] [place], [address], 11/17/2014 15:37:28 10/24/19 24 10/25/2023 CBC WITH DIFFE RENTI AL/PL ATELE T WBC 5.1 x10e3 /uL 3.4-10 .8 normal Not Available [facility] ([facility]) [address] [facility], [place], [address], 10/25/2023 06:13:26 10/24/19 24 10/25/2023 CBC WITH DIFFE RENTI AL/PL ATELE T RBC 4.59 x10e6 /uL 3.77-5 .28 normal Not Available [facility] ([facility]) [address] [facility], [place], [address], 10/25/2023 06:13:26 10/24/19 24 10/25/2023 CBC WITH DIFFE RENTI AL/PL ATELE T hemoglobin 14.6 g/dL 11.1-1 5.9 normal Not Available [facility] ([facility]) [address] [facility], [place], [address], 10/25/2023 06:13:26 10/24/19 24 10/25/2023 CBC WITH DIFFE RENTI AL/PL ATELE T hematocrit 44.1 % 34.0-4 6.6 normal Not Available [facility] ([facility]) [address] [facility], [place], [address], 10/25/2023 06:13:26 10/24/19 24 10/25/2023 CBC WITH DIFFE RENTI AL/PL ATELE T MCV 96 fL 79-97 normal Not Available [facility] ([facility]) [address] [place], [address], 10/25/2023 06:13:26 10/24/1910/25/2023 CBC WITH DIFFE RENTI AL/PL ATELE T MCH 31.8 pg 26.6-3 3.0 normal Not Available [facility] ([facility]) [address] [place], [address], 10/25/2023 06:13:26 10/24/19 24 10/25/2023 CBC WITH DIFFE RENTI AL/PL ATELE T MCHC 33.1 g/dL 31.5-3 5.7 normal Not Available [facility] ([facility]) [address] [facility], [place], [address], 10/25/2023 06:13:26 10/24/19 24 10/25/2023 CBC WITH DIFFE RENTI AL/PL ATELE T RDW 13.4 % 11.7-1 5.4 Not Available [facility] ([facility]) [address] [facility], [place], [address], 10/25/2023 06:13:26 10/24/19 24 10/25/2023 CBC WITH DIFFE RENTI AL/PL ATELE T platelets 251 x10e3 /uL 150-45 0 normal Not Available [facility] ([facility]) [address] [facility], [place], [address], 10/25/2023 06:13:26 10/24/19 24 10/25/2023 CBC WITH DIFFE RENTI AL/PL ATELE T neutrophils 58 % not estab. normal Not Available [facility] ([facility]) [address] [facility], [place], [address], 10/25/2023 06:13:26 10/24/19 24 10/25/2023 CBC WITH DIFFE RENTI AL/PL ATELE T lymphs 30 % not estab. normal Not Available [facility] ([facility]) [address] [place], [address], 10/25/2023 06:13:26 10/24/19 24 10/25/2023 CBC WITH DIFFE RENTI AL/PL ATELE T monocytes 9 % not estab. normal Not Available [facility] ([facility]) [address] [place], [address], 10/25/2023 06:13:26 10/24/19 24 10/25/2023 CBC WITH DIFFE RENTI AL/PL ATELE T eos 2 % not estab. normal Not Available [facility] ([facility]) [address] [place], [address], 10/25/2023 06:13:26 10/24/19 24 10/25/2023 CBC WITH DIFFE RENTI AL/PL ATELE T basos 1 % not estab. normal Not Available [facility] ([facility]) [address] [place], [address], 10/25/2023 06:13:26 10/24/1910/25/2023 CBC WITH DIFFE RENTI AL/PL ATELE T neutrophils (absolute) 3.0 x10e3 /uL 1.4-7. 0 normal Not Available [facility] ([facility]) [address] [place], [address], 10/25/2023 06:13:26 10/24/19 24 10/25/2023 CBC WITH DIFFE RENTI AL/PL ATELE T lymphs (absolute) 1.5 x10e3 /uL 0.7-3. 1 normal Not Available [facility] ([facility]) [address] [place], [address], 10/25/2023 06:13:26 10/24/19 24 10/25/2023 CBC WITH DIFFE RENTI AL/PL ATELE T monocytes(ab solute) 0.5 x10e3 /uL 0.1-0. 9 normal Not Available [facility] ([facility]) [address] [place], [address], 10/25/2023 06:13:26 10/24/1910/25/2023 CBC WITH DIFFE RENTI AL/PL ATELE T eos (absolute) 0.1 x10e3 /uL 0.0-0. 4 normal Not Available [facility] ([facility]) [address] [place], [address], 10/25/2023 06:13:26 10/24/19 24 10/25/2023 CBC WITH DIFFE RENTI AL/PL ATELE T baso (absolute) 0.0 x10e3 /uL 0.0-0. 2 normal Not Available [facility] ([facility]) [address] [facility], [place], [address], 10/25/2023 06:13:26 10/24/19 24 10/25/2023 CBC WITH DIFFE RENTI AL/PL ATELE T immature granulocytes 0 % not estab. Not Available [facility] ([facility]) [address] [facility], [place], [address], 10/25/2023 06:13:26 10/24/19 24 10/25/2023 CBC WITH DIFFE RENTI AL/PL ATELE T immature grans (abs) 0.0 x10e3 /uL 0.0-0. 1 Not Available [facility] ([facility]) [address] [facility], [place], [address], 10/25/2023 06:13:26 10/24/19 24 10/24/2023 ABN OPTIO [...] neces aguila follo w-up. Not Available [facility] ([facility]) [address] [facility], [place], [address], 10/25/2023 06:13:27 08/12/19 24 07/20/2023 XR, chest No observ ation record ed. Not Available 2023 09:29:45 08/12/19 24 07/16/2023 CT, angio gram, chest , w/ contr ast No observ ation record ed. Not Available 2023 09:31:06 08/12/19 24 07/16/2023 XR, chest No observ ation record ed. [email or web address] Not Available 2023 09:33:01 08/14/19 24 07/24/2016 polys omnog salty , split night (PROC ) No observ ation record ed. [facility] [address], [place], [address], 10/21/2023 09:24:03 09/30/19 24 09/12/2023 CT, chest , w/o contr ast No observ ation record ed. [place] [id number] [facility] [address], [place], [address], 09/30/2023 09:19:58 10/01/19 24 09/30/2023 nonin vasiv e ear or pulse oxime try by claudio holleyn ight monit oring (PROC ) No observ ation record ed. [email or web address] Not Available 10/01 17:16:45 10/02/19 24 09/30/2023 CPAP compl iance * No observ ation record ed. [email or web address] Not Available 2023 19:12:09 11/10/19 6 minut e walk test* No observ ation record ed. [facility] Not Available 2023 15:29:33 11/25/19 24 11/25/2023 compl ete PFT w/ [facility] hodil ator graciela metry * No observ ation record ed. [email or web address] Not Available 2023 12:57:46 Result Notes None recorded. Problems Name Problem SNOMED Code Status Onset Date Resolution Date Notes Provider Name and Address Organization Details Recorded Time Obstructive sleep apnea syndrome 08518084 Active 2023 TAMIKO SRIVASTAVA APRN [address], [place], [address], [facility] - [facility], [facility] 13:49:21 Bacteremia caused by Gram-negati ve bacteria 249548110871 Active 2023 TAMIKO SRIVASTAVA APRN [address], [place], [address], [facility], [facility] 4 15:57:25 Pneumonia 572975923 Active 2023 TAMIKO SRIVASTAVA APRN [address], [place], [address], [facility], [facility] 4 15:57:32 Morbid obesity 172230224 Active 2023 TAMIKO SRIVASTAVA APRN [address], [place], [address], [facility], [facility] 4 15:57:40 Maggy thyroiditis 78657077 Active 2023 TAMIKO SRIVASTAVA APRN [address], [place], [address], [facility], [facility] 4 15:58:49 Dyspnea 850392604 Active 2023 TAMIKO SRIVASTAVA APRN [address], [place], [address], [facility], [facility] 4 15:59:04 Fatigue 42903874 Active MD Antoine Benitez [address], [place], [address], [facility], [facility] 5 16:16:11 Abnormal weight gain 084866323 Active MD Antoine Benitez [address], [place], [address], [facility], [facility] 5 12:48:55 Macrocytosi s 294199075 Active MD Antoine Benitez [address], [place], [address], [facility], [facility] 5 12:48:55 Tremor 83460963 Active MD Antoine Benitez [address], [place], [address], [place] [facility] 5 12:48:55 Bronchitis [id number] Jonel Kline MD [address], [place], [address], [facility], [facility] 5 16:16:12 Pure hypercholes terolemia [id number] Jonel Kline MD [address], [place], [address], [facility], [facility] 5 16:16:12 Obesity 002983391 Jonel Kline MD [address], [place], [address], [facility], [facility] 5 16:16:12 Benign essential hypertensio n [id number] Jonel Kline MD [address], [place], [address], [facility], [facility] 5 16:16:12 Problem Notes None recorded. Procedures Surgical History Date Name Laterality Status Provider Name and Address Organization Details Recorded Time Cholecystectomy completed [facility] 10/20/2014 11:40:37 Joint replacement, Knee completed [facility] 10/20/2014 11:40:37 Other completed [facility] 10/20/2014 11:40:37 Other completed [facility] 10/20/2014 11:40:37 Imaging Results Imaging Date Name Status LastModified by Organization Details LastModified Time 07/20/2023 XR, chest completed Information no t available 08/12/2023 09:29:45 07/16/2023 CT, angiogram, chest, w/ contrast completed Information not available 08/12/2023 09:31:06 07/16/2023 XR, chest completed Information no t available 08/12/2023 09:33:01 07/24/2016 polysomnography, split night (PROC) completed [facility] [address], [place], [address], 10/21/2023 09:24:03 09/12/2023 CT, chest, w/o contrast completed [address] [facility] Sched[facility] [address], [place], [address], 09/30/2023 09:19:58 09/30/2023 noninvasive ear or pulse oximetry by continuous overnight monitoring (PROC) completed [email or web address] Information not available 10/02/2023 17:16:45 09/30/2023 CPAP compliance* completed [email or web address] Informat ion not available 10/12/2023 19:12:09 11/10/2023 [...] Name and Address Organization Details Recorded Time [id number] ciproflox acin medicatio n Not available Not available Not available 09/30/20232022 2551 RxNorm [place] - [facility], [facility] 4 13:31:15 [id number] Cortispor in medicatio n Not available Not available Not available 10/20/2014 28169 RxNorm Kayla [place] - [facility], [facility] 5 11:30:23 Medications Name Sig Start Date [...] Details Last Updated DateTime 5 15 /min 154545. 78792 g 162.56 cm 37.9 kg/m2 88 /min 98.4 [degF] 134 mm[Hg] 80 mm[Hg] Kayla Art [facility], [facility] 5 11:30:23 Date Recorded Body height Respiratory rate Body weight Body mass index (BMI) Body temperature Heart rate Systolic blood pressure Diastolic blood pressure Provider Name and Address Organization Details Last Updated DateTime 5 162.56 cm 14 /min 193421. 98263 g 38.4 kg/m2 98.2 [degF] 94 /min 120 mm[Hg] 80 mm[Hg] Kayla Art [facility], [facility] 5 15:23:01 Date Recorded Body height Body mass index (BMI) Body weight Heart rate Oxygen saturation Oxygen saturation in Arterial blood by Pulse oximetry Inhaled oxygen flow rate Systolic blood pressure Diastolic blood pressure Provider Name and Address Organization Details Last Updated DateTime 4 162.56 cm 41.2 kg/m2 683680. 17 g 73 /min 90 % 90 % 2 L/min 131 mm[Hg] 109 mm[Hg] Natalia Long [facility], [facility] 4 16:02:25 Date Recorded Body height Body mass index (BMI) Body weight Heart rate Oxygen saturation Oxygen saturation in Arterial blood by Pulse oximetry Systolic blood pressure Diastolic blood pressure Provider Name and Address Organization Details Last Updated DateTime 4 162.56 cm 42.1 kg/m2 054730. 13 g 71 /min 93 % 93 % 125 mm[Hg] 82 mm[Hg] Little Lira [facility], [facility] 4 13:30:52 Social History Question Answer Notes LastModified by Organizat ion Details LastModified Time Tobacco Smoking Status Former Smoker ISA [place] - [facility], [facility] 08/12/2023 16:03:57 What Is Your Level Of Alcohol Consumption? Occasional Information not available 08/12/2023 How Many Times Per Week Do You Consume Alcohol? 5-7 Times Per Week Information not available 08/12/2023 When Did You Quit Smoking? 16+yearssincel astcigarette Information not available 08/12/2023 Alcohol Use 1-2 Per Day [email or web address] Informatio n not available 10/20/2014 Do You [...] Time What is your exercise level? Occasional [email or web address] Information not available 10/20/2014 Mental Status None [...] SNOMED-CT Code Diagnosis ICD10 Code Diagnosis Note [id number] Ann-Marie Kline MD [facility] [address] [place] [address] 10/20/2014 11:13:19 10/20/2014 12:30:35 Fatigue 75908127 R/O hypothyroi dism. Abnormal weight gain 330815497 Will r/o Acromegaly and Inessa's Macrocytosis 849218404 W e will R/O Vit. B12 def. Tremor 30732374 Most likely Familiar Tremor, however she will discuss with Dr. Hinojosa. [id number] Ann-Marie Kline MD [facility] [address] [place] [address] 11/10/2014 15:13:32 11/10/2014 16:00:58 Fatigue 71412951 most likely due to stress, we have ruled out Thyroid disease. Bronchitis 99350823 Coug h does not allow her to sleep. She will take a cough syrup Pure hypercholesterolemia 077931860 On simvastati n. Obesity 148460006 With a BMI of 38.4. We will try Contrave if it is OK with Dr Hinojosa. Benign ess ential hypertension 1703571 Under control. [id number] TAMIKO SRIVASTAVA APRN [facility] [address] [facility],[address] [place] [address] 08/12/2023 15:42:44 08/13/2023 14:42:40 Obstructive sleep apnea syndrome 93162109 G47.33 History of ANUSHA, non compliant on [...] in case. Bacteremia caused by Gram-negative bacteria 1849349527 08 A41.50 Klebsiella pneumonia bacteremia from community- acquired pneumonia, treated with cefepime while inpatient. Blood cultures were negative at discharge. Discharged home on cefpodoxim e for another 7 days. Pneumonia 883082783 J18. 9 CAP treated with cefepime while inpatient. At discharge blood cultures were clean. Discharged home on cefpodoxim e for another 7 days. 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 Yap, cardiology Detailed discussion had regarding need to monitor her salt and fluid intake 54498951 TAMIKO SRIVASTAVA APRN [place] [address] [address] [facility] [address] [place] [address] 09/30/2023 13:23:06 10/11/2023 17:05:15 Obstructive sleep apnea syndrome 90291241 G47.33 Moderate ANUSHA with AHI 20.5 on PSG in 2017 with a REM AHI of 40 Plan:-Comp liance reviewed. She demonstrat es excellent compliance , good tolerance and is benefiting from its use-Contin ue BiPAP 16/12 cmH2O, easy breathe on-Fullfac e mask-Order sent to [facility] for new supplies-W ill also obtain overnight [...] or operating heavy machinery, if somnolent Dyspnea 944346262 R06.00 Likely secondary to diastolic heart failure, obesity and deconditio chuck Plan:-Cont inue oxygen at 2L/NC as needed to keep SpO2 90% or greater-Ar range for pulmonary function testing now her pneumonia is resolved.- Continue with Lasix, managed by Dr. Yap, cardiology -We again reviewed importance of monitoring her salt and fluid intake-Haim l check RAST and CBC Bacteremia caused by Gram-negative bacteria 0424306436 08 A41.50 RESOLVED:K lebsiella pneumonia bacteremia from community- acquired pneumonia, treated with cefepime while inpatient. Blood cultures were negative at discharge. Discharged home on cefpodoxim e for another 7 days. Pneumonia 790036581 J18. 9 RESOLVED:- CAP treated with cefepime while inpatient. At discharge blood cultures were clean. Discharged home on cefpodoxim e for another 7 days. -Follow-up CT of the chest at [facility] on 09/12/2023 showed resolution of previously noted infiltrate s with minimal left lower lobe atelectasi s and no other acute findings. Morbid obesity 982609726 E66.01 Recommend to increase physical activity, weight loss and avoid further weight gain Maggy thyroiditis 21 192295 E06.3 Chronic, stable Managed by primary care [id number] Lc Greco MD [address] [address] 11/26/2023 11:26:40 11/26/2023 16:53:01 Obstructive sleep apnea syndrome 48769140 G47.33 Chronic and stable Moderate ANUSHA with AHI 20.5 on PSG in 2017 with a REM AHI of 40 Most recent download with 90% total compliance 40% for compliance Usage is 3 hours and 29 minutes She is on BiPAP 08/03 AHI is 2.2 and leak is at 48.4 L/min Dyspnea 490179595 R06.00 Chronic stable Has shortness of breath secondary to obesity and deconditio chuck and history of diastolic heart failure She has oxygen that she uses as needed No evidence of airflow obstructio n noted on the PFT yesterday Pneumonia 962185112 J18. 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 ation syndrome Maggy thyroiditis 21 934893 E06.3 Chronic and stable She is on levothyrox ine 25 mcg daily Essential hypertension 23141625 I10 Chronic and stable She is on carvedilol 6.25 mg twice a day, losartan 50 mg daily Gastroesop hageal reflux disease without esophagitis 146486560 K21.9 Chronic and stable She is on pantoprazo le 40 mg daily Hyperlipidemia 98060749 E78.5 Chronic and stable She is on [...] 10/20/2014 1 [place] Silvana Shahid Payam [id number] Silvana Payam 10/20/2014 2 [facility] HEALTHCARE OPTION - PLAN F (MEDICARE SUPPLEMENT) Silvana Villanueva Payam [id number] Silvana Payam 11/10/2014 1 [place] Silvana F Payam [id number] Silvana Payam 11/10/2014 2 [facility] HE[employer]CARE OPTION - PLAN F (MEDICARE SUPPLEMENT) Silvana Pringlezier Payam [id number] Silvana Payam 08/12/2023 1 [place] Silvana F Payam [id number] Silvana Payam 08/12/2023 2 [employer] HE[employer]ARE OPTION - PLAN F (MEDICARE SUPPLEMENT) Silvana Villanueva Payam [id number] Silvana Payam 09/30/2023 1 [place] Silvana F Payam [id number] Silvana Hare 09/30/2023 2 [facility] HE[facility] OPTION - PLAN F (MEDICARE SUPPLEMENT) Silvana Hare [id number] Silvana Hare 11/26/2023 1 [place] Silvana Hare [id number] Silvana Hare 11/26/2023 2 [facility] HEALTHCARE OPTION - PLAN F (MEDICARE SUPPLEMENT) Silvana Hare [id number] Silvana Hare Notes Date Note Type Note [...] hypernatremia and mild Macrocytosis. Ann-Marie Kline MD [address] [address], [place], [address], [facility] - [facility], [facility] 10/20/2014 12:51:12 5 text/html Patient comes for f/u of HTN, Hypercholesteronemia, Hypothyroidism, Osteoporosis, patient is not feeling well: she feels tired ,can not walk more than 2 blocks, she had a heart ev and it was negative; weight is stable, we discuss the lab tests: IGF-1 129, TFT: WNL Vit B12 was: 715 Patient brings records of BS: Ann-Marie Kline MD [address], [place], [address], [facility] [employer] 11/10/2014 16:16:57 4 text/html She is here for hospital follow-up and management of sleep apnea, accompanied by her husbandShe was recently hospitalized at [facility] with acute pulmonary edema in the [...] of vivid dreamsDenies restless legs TAMIKO SRIVASTAVA, OVAL OR CIRCULAR GLASS CUTTER [address], [place], [address], [facility] elicit Physician Group, [employer] 08/12/2023 16:53:28 4 text/html She is here [...] painDenies nasal congestion or PND Hospitalized at [facility] in June with acute pulmonary edema/diastolic [...] 2.295th percentile leak of 48.4 TAMIKO SRIVASTAVA, OVAL [employer] C[employer]TER [address] [address], [place], [address], [facility], [facility] 09/30/2023 14:46:25 4 text/html This visit was [...] given verbal consent to telehealth visit. Use FaceTime on the [employer] as patient was unable to come into [...] up-to-date with her vaccinations Lc Greco MD [address] [address], [place], [address], [facility] - [facility]ician [facility], [facility] 11/26/2023 12:16:16 OBGyn Episode No OBEpisode recorded.
--- OUTSIDE RECORDS SUMMARY | 2024-07-22 14:56 | XMS_ITS | Data Portability ---
Author Organization [place] [facility], [facility] - OP Address [address] [place] [address] Care Team Providers Care Personal Chef Name Role Phone DEBI MATOS Primary Care [...] For Internal Use Only, Do Not Delete/merge, [id number] 13:50:00 home health referral - [facility] referral for home PTDx: Abnormal GAIT, Right knee arthropl asty, Left foot DJD, pain in limbGAIT training , safety/a ssessmen t, DME teaching , educatio n.Start 2 weeks 3x/week and will reassess at follow-u p visit in 2 weeks.SO C: 10/05 or Emir knowles, LEONORA AACFASAO [facility] ip-Train ed Foot and Ankle SurgeonA O/AAFAO Core FacultyO ffice: [phone] le: [phone]-charleen il: [email or web address] 2014 015 louie [facility], [address], [address], [place], [address], 5 08:43:53 Procedures None recorded . Surgeries None recorded . Imaging XR, foot, 3 or more view 03/20/ 2023 03/20/2 023 [email or web address] In-House Results, For Internal Use Only, Do Not Delete/merge, [id number] 3 12:05:27 x-ray, foot, 3 views 2014 015 [email or web address] In-House Results, For Internal Use Only, Do Not Delete/merge, [id number] 5 18:48:02 Medication Orders None recorded . Patient TargetsNo targets recorded. Patient Instructions Encounter Date Encounter Id Patient Instructions Last Modified By Organization Details Last Modified Time 10/04/2014 [id number] Corticosteroid injection. Discussed operative option of arthrodesis to the great toe joint. F/U with me in 2 weeks for re-evaluation. [facility] referral for balance issues. [email or web address] Not available 10/04/2014 18:45:02 06/10/2022 [id number] heel pain instructions Not available 06/10/2022 17:26:14 [...] and concerns. Not available 06/10/2022 21:01:50 07/08/2022 [id number] -Dressed the lesion with betadine and a band-aid. -Advised to continue to WBAT in supportive shoes, attend PT, complete the HEP, and wear the night splint. -Recommended urea cream for keratoderma prophylaxis. -Addressed all of the patient's questions and concerns. Not available 07/08/2022 15:35:21 Reason for Referral Home Health Referral for Abn ormal gait [facility] referral for home PTDx: Abnormal GAIT, Right knee arthroplasty, Left foot DJD, pain in limbGAIT training, safety/assessment, DME teaching, education.Start 2 weeks 3x/week and will reassess at follow-up visit in 2 weeks.SOC: 10/05 or Emir galindo DPM AACFASAO Fellowship-Trained Foot and Ankle SurgeonGARRETT/HOOD Core FacultyOffice: [phone]: [phone]-mail: Referring Physician: Emir Curry [facility]iat[facility], Encounter Date: [...] For Internal Use Only, Do Not Delete/merge, [id number] 06/10/2022 21:02:54 Result Notes None recorded. Problems Name Problem SNOMED Code Status Onset Date Resolution Date Notes Provider Name and Address Organization Details Recorded Time Tremor 19435988 Active 2022 Latesha Workman [facility] 3 17:02:46 Acquired hallux rigidus 9755298 Active Emir Curry, DPM [address], [address] , [facility] 5 18:48:02 Sesamoiditis 95715759 Active Emir Curry DPDeonte [address], [address] , [facility] 5 18:48:02 Abnormal gait 32635212 Active Emir Curry, DPM [address], [address] , [facility] 5 18:48:02 Problem Notes None recorded. Procedures Surgical History Date Name Laterality Status Provider Name and Address Organization Details Recorded Time 07/09/19 23 Keratoma Debridement Size Lesion < 0.5CM completed Narendra Hannon, LEONORA [address] [place] [address], [address], [facility] 07/08/2022 13:55:47 06/11/19 23 Injection Fascia/Tendon/l igament completed Narendra Hannon DPM [address] [place] [address], [address], [facility] 06/10/2022 17:20:10 06/11/19 23 Night Splint completed Narendra Hannon DPDeonte [address] [place] [address], [address], [facility] 06/10/2022 17:21:21 06/11/19 23 Keratoma Debridement Size Lesion < 0.5CM completed Narendra Hannon DPM [address] [place] [address], [address], [facility] 06/10/2022 17:20:51 10/05/19 15 Injection Small Joint/Bursae completed Emir Curry DPM [address] [place] [address], [address], [facility] 10/04/2014 18:45:02 Knee Surgery completed Mykel Swain [facility] 10/04/2014 15:15:04 excision of bunion completed Latesha Workman [facility] 06/10/2022 16:53:36 Imaging Results Imaging Date Name Status LastModified by Organiz ation Details LastModified Time 06/10/2022 XR, foot, 3 or more view completed klformerly [facility] In-House Results For Internal Use Only, Do Not Delete/merge, [id number] 06/10/2022 21:02:54 Procedure Notes None recorded. Medical [...] [degF] 142 mm[Hg] 76 mm[Hg] Lorie Swain [place] - [facility] 10/04/2014 15:15:04 Date Recorded Body temperature Provider Name a nd Address Organization Details Last Updated DateTime 06/10/2022 97.6 [degF] Latesha Workman [facility] 06/10/2022 16:48:04 Date Recorded Body height Body mass index (BMI) Body weight Provider Name and Address Organization Details Last Updated DateTime 07/08/2022 162.56 cm 39.5 kg/m2 956344.25 g Teresa Mack [facility] 07/08/2022 13:40:42 Social History Question Answer Notes LastModified by Organizat ion Details LastModified Time Tobacco Smoking Status Never Smoker Mykel delaney [facility] 10/04/2014 [...] SNOMED-CT Code Diagnosis ICD10 Code Diagnosis Note [id number] Emir Curry DPM [facility] 1660 1660 [facility] [address] [place] [address] 10/04/2014 14:06:36 10/04/2014 15:34:19 Acquired hallux rigidus 3864226 Sesamoiditis 94515967 Abnormal gait 32682679 492295 Narendra Hannon DPM [place] 730 [facility] [address] [address] [facility] [address] 6 06/10/2022 16:18:34 06/10/2022 17:34:47 Plantar fasciitis 189082275 M72.2 {{Improvin g worsenin g* same}} , {{Left* Ri ght Bilate ral}} Equinus co ntracture of the ankle 612300920 M24.573 Hammer toe 417571711 M20 .41 M20.42 Hammertoe deformitie s of {{Right Le ft Bilater al*}} Callosity 214861666 L84 Dry skin 35423787 L85.3 Squamous c ell carcinoma of skin 514445717 C44.92 Patient undergoing excision of lesion June 24 [id number] Narendra Hannon DPM [place] [address] [place] [address] 07/08/2022 13:37:08 07/08/2022 14:01:07 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 B/L medial hallux and LT submet 1 Plantar fasciitis 092739 003 M72.2 {{Improvin g* worseni ng same}} , {{Left* Ri ght Bilate ral}} Equinus co ntracture of the ankle 733405088 M24.573 Hammer toe 168463912 M20 .41 M20.42 Hammertoe deformitie s of {{Right Le ft Bilater al*}} Callosity 418469134 L84 Dry skin 97314391 L85.3 Squamous c ell carcinoma of skin 848834673 C44.92 Patient undergoing excision of lesion June 24 Health Concerns Section Related Observation LastModified by Organization Detai ls LastModified Time None Recorded Concern Status LastModified by Organization Details LastModified Time None Recorded Advance Directives Directive None Recorded Payers Encounter Date Sequence Insurance Name Policy Number Policy Schilling Covered Member ID Schilling Member ID Guarantor Name 10/04/2014 1 [place] Silvana Hare [id number] Silvana Hare 10/04/2014 2 [facility] CLAIMS - PLAN KT (MEDICARE SUPPLEMENT) Sivlana Hare [id number] Silvana Hare 06/10/2022 1 [place] Silvana Hare [id number] Silvana Hare 06/10/2022 2 [facility] CLAIMS - PLAN KT (MEDICARE SUPPLEMENT) Silvana Riverok [id number] Silvana Hare 07/08/2022 1 [place] Silv[place] Hare [id number] Silvana Hare 07/08/2022 2 [facility] CLAIMS - PLAN KT (MEDICARE SUPPLEMENT) Silvana Riverok [id number] Silvana Hare Notes Date Note Type Note Provider Name and Address Organization Details Recorded Time 06/10/2022 text/html Heel PainReporte d bypatient.Quality:t hrobbing; dull; deep; improving Severity:mild Timing:cannot identify Context:cannot identify Alleviating Factors:rest; ice; cessation of activity; stretching and treatment here Associated Symptoms:warmth;swe lling Previous Surgery:none Prior Imaging:none Previous Injections:helped significantly Previous Treatment:stretchin g; helped significantly; therapy helped Work Related:no [...] Rt big toe. Pain: 1-08/31. Narendra Hannon, DPDeonte [address] [address], [place], [address], [facility] 06/10/2022 21:03:19 [...] has not seen improvements. Pain: 07/01. Narendra Hannon DPM [address], [address], [facility] 07/08/2022 15:36:45 OBGyn Episode No OBEpisode recorded.
--- OUTSIDE RECORDS SUMMARY | 2024-07-22 14:56 | XMS_ITS | Data Portability ---
Author Organization [place] [facility] [place] Address [address] [facility] [place] [address] Assessment Encounter Date Assessment Date Assessment LastModified [...] Plan: a. Discontinue clobetasol as advised by brand marketing manager. b. Follow brand marketing manager's recommendations for alternative creams. 7. Gastroesophageal reflux [...] None recorded. Lab culture, urine 2023 024 bscheIncont [facility], [address] [place] [address], [address], [address], 5 05:15:08 urinalysis, complete 2023 024 bsPathable [facility], [address] [place] [address], [facility] [address], [address], 5 05:15:04 Referral None recorded. Procedures None recorded. Surgeries None recorded. Imaging None recorded. Medication Orders tirzepatide (weight loss) 10 mg/0.5 mL subcutaneou s pen injector 2023 024 bschein [id number] [place] [address], [address], [place], [address], 5 06:22:59 oxybutynin chloride ER 5 mg tablet,exte nded release 24 hr 2023 024 bschein [facility] [place] [address], [address], [place], [address], 5 06:21:39 Estrace 0.01% (0.1 mg/gram) vaginal cream 2023 024 ANTHONY [id number] [place] [address], [address], [place], [address], 4 13:11:38 metronidazo le 500 mg tablet 2023 024 ANTHONY [facility] [place] [address], [address], [place], [address], 4 13:14:39 clobetasol 0.05 % scalp solution 2023 024 bschein [facility] [place] [address], [address], [place], [address], 5 06:19:15 selenium sulfide 2.25 % shampoo 2023 024 bschein [facility] [place] [address], [address], [place], [address], 5 06:19:36 nystatin 100,000 unit/gram topical cream 2023 024 bschein [facility] [place] [address], [address], [place], [address], 5 06:19:59 clobetasol 0.05 % topical cream 07/23/ 2024 07/23/2 024 bschein [id number] Anabel Montero, [address] [place], [address], 06:18:36 clobetasol 0.05 % topical gel 2023 024 bschein [id number] Anabel Montero, [address] [place], [address], 06:18:56 Patient TargetsNo targets recorded. Patient Instructions Encounter Date Encounter Id Patient Instructions Last Modified By Organization Details Last Modified Time 09/22/2023 [id number] epilepsy: care instructions bschein Not available 04/19/2024 [...] our office. Warm regards, Noe Camp MD Disaster Director [facility] Not available 09/22/2023 16:44:06 10/23/2023 [id number] atrophic vaginit is: care instructions bschein Not [...] 07:16:02 Date: Fri From: Dr. Noe Camp, Disaster Director, Family [facility] Dear [facility], Thank you for visiting today and [...] you soon. Best regards, Dr. Noe Camp Disaster Director, Family Medicine Not available 10/23/2023 14:51:31 11/19/2023 [id number] atrophic vaginit is: care instructions bschein Not [...] 04/19/2024 07:10:37 Date: November 19, 2023 Dear Maryma, Thank you for visiting us today. We [...] should no longer be used; follow your brand marketing manager's advice regarding alternative creams. - Maintain current [...] you again soon. Sincerely, Dr. Noe Camp, Disaster DirectorOpener Tender: Family Medicine Not available 11/19/2023 13:20:25 12/22/2023 [id number] sleep apnea: car e instructions bschein Not [...] negati ve normal Not Available [facility] [address] [place], [address], 10/24/2023 19:01:24 10/23/19 24 10/24/2023 SURES WAB(R ) ADVAN FLORIDALMA VAGIN ITIS PLUS, TMA alfredo species NOT DETECT ED not detect ed normal Not Available [facility] [place] [facility] [address] [place], [address], 10/24/2023 19:01:24 10/23/19 24 10/24/2023 SURES WAB(R [...] resul t. Not Available [facility] [place] [facility] [address], [place], [address], 10/24/2023 19:01:24 10/23/19 24 10/24/2023 SURES WAB(R ) ADVAN FLORIDALMA VAGIN ITIS PLUS, TMA trichomonas vaginalis (TV), tma NOT DETECT ED not detect ed normal Not Available [facility] [place] [facility] [address], [place], [address], 10/24/2023 19:01:24 10/23/19 24 10/24/2023 SURES WAB(R ) ADVAN FLORIDALMA VAGIN ITIS PLUS, TMA chlamydia trachomatis RNA, tma, urogenital NOT DETECT ED not detect ed normal Not Available [facility] [place] [facility] [address], [place], [address], 10/24/2023 19:01:24 10/23/19 24 10/24/2023 SURES WAB(R ) ADVAN FLORIDALMA VAGIN ITIS PLUS, TMA neisseria gonorrhoeae RNA, tma, urogenital NOT DETECT ED not detect ed normal For addit ional infor maykel gutierrez refer to https ://ed ucati on.qu lazarus [employer]. [employer]/f aq/FA Q154 (This link is being provi ded for infor ida horn/ edgardo gupta purpo ses only. ) Not Available [facility] [place] [facility] [address], [place], [address], 10/24/2023 19:01:24 10/23/19 24 10/25/2023 URINA LYSIS , COMPL ETE color YELLOW yellow normal Not Available [facility] [place] [facility] [address], [place], [address], 10/25/2023 01:50:50 10/23/1910/2410/25/2023 URINA LYSIS , COMPL ETE appearance CLEAR clear normal Not Available [facility] [place] [facility] [address], [place], [address], 10/25/2023 01:50:50 10/23/1910/25/2023 URINA LYSIS , COMPL ETE specific gravity 1.013 1.001- 1.035 normal Not Available [facility] [place] [facility] [address], [place], [address], 10/25/2023 01:50:50 10/23/19 24 10/25/2023 URINA LYSIS , COMPL ETE pH 6.0 5.0-8. 0 normal Not Available [facility] [place] [facility] [address], [place], [address], 10/25/2023 01:50:50 10/23/19 24 10/25/2023 URINA LYSIS , COMPL ETE glucose NEGATI VE negati ve normal Not Available [facility] [place] [facility] [address], [place], [address], 10/25/2023 01:50:50 10/23/19 24 10/25/2023 URINA LYSIS , COMPL ETE bilirubin NEGATI VE negati ve normal Not Available [facility] [place] [facility] [address], [place], [address], 10/25/2023 01:50:50 10/23/19 24 10/25/2023 URINA LYSIS , COMPL ETE ketones NEGATI VE negati ve normal Not Available [facility] [place] [facility] [address], [place], [address], 10/25/2023 01:50:50 10/23/19 24 10/25/2023 URINA LYSIS , COMPL ETE occult blood 2+ negati ve abnormal Not Available [facility] [place] [facility] [address], [place], [address], 10/25/2023 01:50:50 10/23/19 24 10/25/2023 URINA LYSIS , COMPL ETE protein NEGATI VE negati ve normal Not Available [facility] [place] [facility] [address], [place], [address], 10/25/2023 01:50:50 10/23/19 24 10/25/2023 URINA LYSIS , COMPL ETE nitrite NEGATI VE negati ve normal Not Available [facility] [place] [facility] [address], [place], [address], 10/25/2023 01:50:50 10/23/19 24 10/25/2023 URINA LYSIS , COMPL ETE leukocyte esterase NEGATI VE negati ve normal Not Available [facility] [address], [place], [address], 10/25/2023 01:50:50 10/23/19 24 10/25/2023 URINA LYSIS , COMPL ETE WBC NONE SEEN /hpf < or = 5 normal Not Available [facility] [place] [facility] [address], [place], [address], 10/25/2023 01:50:50 10/23/19 24 10/25/2023 URINA LYSIS , COMPL ETE RBC 3-10 /hpf < or = 2 abnormal Not Available [facility] [place] [facility] [address], [place], [address], 10/25/2023 01:50:50 10/23/19 24 10/25/2023 URINA LYSIS , COMPL ETE squamous epithelial cells 0-5 /hpf < or = 5 Not Available [facility] [place] [facility] [address], [place], [address], 10/25/2023 01:50:50 10/23/19 24 10/25/2023 URINA LYSIS , COMPL ETE bacteria NONE SEEN /hpf none seen normal Not Available [facility] [address], [place], [address], 10/25/2023 01:50:50 10/23/19 24 10/25/2023 URINA LYSIS , COMPL ETE hyaline cast NONE SEEN /lpf none seen normal Not Available [facility] [place] [facility] [address], [place], [address], 10/25/2023 01:50:50 10/23/19 24 10/25/2023 URINA LYSIS , COMPL ETE note This urine was jessica zed for the prese nce of WBC, RBC, bacte tonie, casts , and other forme d eleme nts. Only those eleme nts seen were repor lucas. Not Available [facility] [place] [facility] [address], [place], [address], 10/25/2023 01:50:50 10/23/19 24 10/25/2023 CULTU RE, URINE , ROUTI NE culture, urine, routine SEE NOTE CULTU RE, URINE , ROUTI NE Micro Numbe r: [id number] Test Statu s: Final Speci men [...] port Tube. Not Available [facility] [place] [facility] [address], [place], [address], 10/25/2023 01:50:53 10/09/19 24 10/09/2023 DEXA No observ [facility]ion [facility] [address], [place], [address], 04/19/2024 04:39:48 10/14/19 24 10/09/2023 MAMMO , scree chuck, digit al, bilat eral No observ ation record ed. [facility] [address], [place], [address], 04/19/2024 04:39:53 10/15/19 24 10/15/2023 US, breas t, unila teral No observ ation record ed. [facility] [address], [place], [address], 04/19/2024 04:39:44 Result Notes None recorded. Problems Name Problem SNOMED Code Status Onset Date Resolution Date Notes Provider Name and Address Organization Details Recorded Time Morbid obesity 291485269 Active 2022 Not Available [facility] 4 18:10:59 Osteoarthri tis 338901790 Active 2020 Not Available [facility] 4 18:10:59 Hypertensiv e disorder 74101458 Active 2020 Not Available [facility] 4 18:10:59 Hypothyroid ism 92018150 Active 2020 Not Available [facility] 4 18:10:59 Gastroesoph ageal reflux disease 892322530 Active 2020 Not Available [facility] 4 18:10:59 Hyperlipide juany 89133717 Active 2020 Not Available [facility] 4 18:10:59 Essential tremor 661380158 Active 2020 Not Available [facility] 4 18:10:59 Benign meningioma 373879511 Active 2020 Not Available [facility] 4 18:10:59 Depressive disorder 94966187 Active 2020 Not Available [facility] 4 18:10:59 Seizure disorder 779590525 Active 2020 Not Available [facility] 4 18:10:59 Acute bronchitis 10103952 Active 2022 Not Available [facility] 4 18:10:59 Obesity 610309295 Active 2022 Not Available [facility] 4 18:10:59 Prediabetes 904728796 Active 2023 [facility] [address], [place], [address], [place] [facility] 4 13:09:55 Congestive heart failure 64953431 Active [address], [place], [address], [place] [facility] 4 13:06:49 Obstructive sleep apnea syndrome 40448632 Active [address], [place], [address], [place] [facility] 4 13:19:37 Vaginitis 58039608 Active [address], [place], [address], [place] [facility] 4 13:35:52 Atopic dermatitis 42188621 Active [address], [place], [address], [place] [facility] 4 15:30:53 Herpes zoster 7915991 Active [address], [place], [address], [place] [facility] 4 15:32:23 Pruritic rash 47897396 Active [address], [place], [address], [place] [facility] 4 15:34:37 Seborrheic keratosis 818785039 Active [address], [place], [address], [place] [facility] 4 15:39:14 Seborrheic dermatitis of scalp 365375326 Active 2023 [facility] [address], [place], [address], [place] [facility] 4 14:41:41 Acute cystitis 81030870 Active 2023 MD [facility] [address], [place], [address], [place] [facility] 4 14:47:31 Atrophic vaginitis 90181580 Active 2023 MD [facility] [address], [place], [address], [place] [facility] 4 15:18:29 Bacterial vaginosis 414105167 Active 2023 MD [facility] [address], [place], [address], [place] [facility] 4 15:18:43 Candidiasis of vagina 51280166 Active 2023 MD [facility] [address], [place], [address], [place] [facility] 4 15:18:49 Type 2 diabetes mellitus 98034977 Active 2023 [facility] [address], [place], [address], [place] [facility] 4 19:56:34 Overactive urinary bladder 343316381 Active 2023 MD [facility] [address], [place], [address], [place] [facility] 4 13:12:56 Intentional weight loss 662469074 Active 2023 Noe Camp MD [address], [place], [address], [place] [facility] 13:22:00 Problem Notes None recorded. Procedures Surgical History Date Name Laterality Status Provider Name and Address Organization Details Recorded Time 024 AWV completed MD Jacob [address], [place], [address], [place] [facility] 06/03/2023 13:30:05 023 AWV completed Jessika Sanders NP [address], [place], [address], [place] [facility] 04/23/2022 13:21:18 022 AWV completed MD [address], [place], [address], [place] [facility] 04/03/2021 15:13:15 021 AWV completed Henry Mullins [place] B[facility] 01/23/2021 13:41:04 021 Knee Replacement completed Joaquin Akhtar [place] [facility] 10/03/2020 15:20:10 016 Knee Replacement completed Joaquin Cardona [facility] 10/03/2020 15:20:25 977 Cholecystectomy completed Joaquin Akhtar [place] B[facility] 10/03/2020 15:19:41 Imaging Results Imaging Date Name Status LastModified by Organ atcritical access hospital Details LastModified Time 10/09/2023 DEXA completed [facility] [address], [place], [address], 04/19/2024 04:39:48 10/09/2023 MAMMO, screening, digital, bilateral completed bschein Breast [facility] [address], [place], [address], 04/19/2024 04:39:53 10/15/2023 US, breast, unilateral completed bschein [facility] [address], [place], [address], 04/19/2024 04:39:44 Procedure Notes None recorded. Medical Equipment None Reported. Allergies Allergen ID Allergen Name Allergen Category Reaction Reaction Severity Criticality Documentation Date Start Date Code Code System Note Provider Name and Address Organization Details Recorded Time 5367 ciproflox acin medicatio n Not available Not available Not available 09/25/20222022 2551 RxNorm ISA [place] - [facility] [place] [facility] 14:06:59 Medications Name Sig Start Date Stop [...] Available Not Available No t Available Intrinsi D92-Ojraly 500 mcg-20 mg-800 mcg tablet Take 1 [...] Updated DateTime 4 162.56 cm 42.1 kg/m2 552769. 13 g 98.2 [degF] 95 % 95 % 73 /min 122 mm[Hg] 78 mm[Hg] Joaquin Hassan MD [facility] 4 15:53:36 Date Recorded Body height Oxygen saturation Oxygen saturation in Arterial blood by Pulse oximetry Body temperature Heart rate Systolic blood pressure Diastolic blood pressure Provider Name and Address Organization Details Last Updated DateTime 4 162.56 cm 90 % 90 % 98.6 [degF] 66 /min 118 mm[Hg] 70 mm[Hg] Nayeli Hassan MD [facility] 4 15:15:52 Date Recorded Body height Body mass index (BMI) Body weight Body temperature Oxygen saturation Oxygen saturation in Arterial blood by Pulse oximetry Systolic blood pressure Diastolic blood pressure Provider Name and Address Organization Details Last Updated DateTime 4 162.56 cm 41.5 kg/m2 878079. 35 g 97.4 [degF] 91 % 91 % 110 mm[Hg] 60 mm[Hg] Alonzo Hassan MD [facility] 4 14:11:19 Date Recorded Body height Body mass index (BMI) Body weight Oxygen saturation Oxygen saturation in Arterial blood by Pulse oximetry Body temperature Heart rate Systolic blood pressure Diastolic blood pressure Provider Name and Address Organization Details Last Updated DateTime 4 162.56 cm 41.2 kg/m2 515336. 17 g 92 % 92 % 98.1 [degF] 73 /min 110 mm[Hg] 58 mm[Hg] Renetta Hassan MD [facility] 4 13:01:35 Date Recorded Body height Body mass index (BMI) Body weight Body temperature Heart rate Oxygen saturation Oxygen saturation in Arterial blood by Pulse oximetry Systolic blood pressure Diastolic blood pressure Provider Name and Address Organization Details Last Updated DateTime 4 162.56 cm 42.1 kg/m2 288543. 13 g 98.3 [degF] 79 /min 94 % 94 % 102 mm[Hg] 60 mm[Hg] Alonzo Hassan MD [facility] 4 13:05:58 Social History Question Answer Notes LastModified by Organizat ion Details LastModified Time Tobacco Smoking Status Never Smoker ISA Welch MD [facility] 10/03/2020 15:17:48 Do You Have An Advance [...] Anxious, Or Unable To Sleep At Night)? [id number] Information not available 04/03/2021 Sex: Unknown Functional [...] 22 completed Joaquin delaney [place] - [facility] 10/05/2021 15:10:39 Influenza, split virus, trivalent, preservative [...] trivalent, PF 01/09/20 18 completed Not Available [facility] 04/29/2023 14:45:32 Influenza, high-dose, trivalent, PF 01/03/20 16 completed Not Available [facility] 04/29/2023 14:45:32 Influenza, split virus, trivalent, preservative 01/03/20 10 completed Not Available [facility] 04/29/2023 14:45:32 Influenza, high-dose, trivalent, PF 12/23/19 18 completed Not Available [facility] 04/29/2023 14:45:32 Influenza, split virus, trivalent, preservative 01/15/20 11 completed Not Available [facility] 04/29/2023 14:45:32 pneumococcal polysaccharide PPV23 01/23/20 10 completed Not Available [facility] 04/29/2023 14:45:32 pneumococcal polysaccharide PPV23 03/24/19 11 completed Not Available [facility] 04/29/2023 14:45:32 Influenza, high-dose, trivalent, PF 12/22/19 15 completed Not Available [facility] 04/29/2023 14:45:32 Influenza, split virus, trivalent, preservative 12/21/19 09 completed Not Available [facility] 04/29/2023 14:45:32 COVID-19, mRNA, LNP-S, PF, 100 mcg/0.5mL dose or 50 mcg/0.25mL dose 05/19/19 21 completed Not Available [facility] [place] 04/29/2023 14:45:32 Influenza, high-dose, quadrivalent, PF 12/27/19 [address], [place], [address], [place] - [facility] 12/27/2021 08:42:07 zoster recombinant 07/16/19 23 completed MD [address], [place], [address], [place] [facility] 07/15/2022 21:37:09 Influenza, high-dose, quadrivalent, PF 12/28/19 23 completed Isauro Rao MD [address] [facility] [address], [place], [address], [place] Brendan Hassan MD [facility] 12/29/2022 12:01:44 RSV, recombinant, protein subunit RSVpreF, adjuvant reconstituted, 0.5 mL, PF 12/28/19 23 completed Isauro Rao MD [address] [place] [address] [address], [place], [address], [place] Brendan Hassan MD [facility] 12/29/2022 12:01:44 COVID-19, mRNA, LNP-S, PF, 100 mcg/0.5mL dose or 50 mcg/0.25mL dose 01/24/20 21 completed ISA Welch MD [facility] 01/23/2021 14:19:53 Past Encounters Encounter ID Performer Location Encounter Start Date Encounter Closed Date Diagnosis/Indication Diagnosis SNOMED-CT Code Diagnosis ICD10 Code Diagnosis Note [id number] MD PRIME LACI Winslow [facility] [address] [place] [address] [place] [address] 10/03/2020 15:04:40 10/03/2020 16:00:19 Benign meningioma 530278175 D32.9 Continue with her antiseizur e medicine. Depressive disorder 8918 9007 F32.9 She fell onto depression after her daughter from opiate overdose. She is going to continue with paroxetine which she needs a refill for today. Essential tremor 4772694 09 G25.0 Currently on pramipexol e with change controls her essential tremor quite well. Gastroesop hageal reflux disease 286559412 K21.9 Well-contr olled on PPI currently Hyperlipidemia 45109984 E78.5 She does need a lipid panel lab obtained. Hypertensive disorder 38 202135 I10 We will check CBC CMP and TSH. Hypothyroidism 49387006 E03.9 Check a TSH. Osteoarthritis 723640127 M19.90 Tylenol as needed she is using her own home physical therapy regimen. Seizure disorder 1483365 02 G40.909 Currently on Lamictal from previous brain surgery Type 2 olivia betes mellitus 36582121 E11.9 Excellent control based on her last hemoglobin A1c. [id number] MD PRIME LACI Winslow OF [facility] Office [address] [place], [place] [address] 8 10/05/2020 10:18:00 10/05/2020 10:36:44 [id number] MD PRIME LACI Winslow OF [facility] Office [address] [place], [place] [address] [address] [place] [id number] 8 10/20/2020 13:13:00 10/20/2020 15:35:18 Acute sinusitis 32730528 J01.90 start augmentin 875mg po bid for 5 days and dexamethas one 4 mg for 5 days Hyperlipidemia 11613784 E78.5 Start crestor Hypothyroidism 81307595 E03.9 TSH at target Type 2 olivia betes mellitus 79677956 E11.9 Excellent control based on her last hemoglobin A1c. Loose stool 949103105 R1 9.5 Check stool studies. [id number] MD PRIME LACI Winslow OF [facility] Office [address] [place], [place] [address] [place] [id number] 8 11/28/2020 16:37:31 11/28/2020 20:42:54 Hypertensive disorder 06936936 I10 At target Skin lesion 31070033 L98 .9 Will have this removed. [id number] MD PRIME LACI Winslow OF [facility] Office [address] [place], [place] [address] 8 01/12/2021 13:57:46 01/12/2021 15:04:15 Essential tremor 724159506 G25.0 Currently on pramipexol e. She went to neurologis t yesterday and was invreased to 3 times a day and 250 Gastroesop hageal reflux disease 315208610 K21.9 Well-contr olled on PPI currently Hyperlipidemia 57501965 E78.5 Start crestor Hypertensive disorder 38 938154 I10 At target Seizure disorder 2506072 02 G40.909 Currently on Lamictal from previous brain surgery Benign meningioma 449121 006 D32.9 Continue with her antiseizur e medicine. Pain of ear 024739666 H9 2.09 Concern of a recurrent meningioma . Will check a CT to r/o that as a source of the pain. Obstructiv e sleep apnea syndrome 09248682 G47.33 Has ANUSHA. She has not been using her CPAP because it bugs her. [id number] MD PRIME LACI Winslow OF [facility] [address] [place], [place] [address] [place] [address] 01/23/2021 13:33:20 01/23/2021 14:20:59 Gastroesophageal reflux disease 828460421 K21.9 Well-contr olled on PPI currently Hyperlipidemia 51775064 E78.5 Start crestor Hypertensive disorder 38 388730 I10 At target Hypothyroidism 47454242 E03.9 TSH at target Seizure disorder 0851016 02 G40.909 Currently on Lamictal from previous brain surgery Active or passive immunization 446532228 Z23 update COVID vax Obstructiv e sleep apnea syndrome 44679386 G47.33 Has ANUSHA. She has not been using her CPAP because it bugs her. [id number] MD PRIME LACI [facility]low [facility] [address] [place] [address] [address] [place] [address] 02/06/2021 14:31:32 02/06/2021 15:27:11 Benign meningioma 868637070 D32.9 Continue with her antiseizur e medicine. Depressive disorder 6140 9007 F32.9 She fell onto depression after her daughter from opiate overdose. She is going to continue with paroxetine which she needs a refill for today. Gastroesop hageal reflux disease 773730029 K21.9 Well-contr olled on PPI currently Hyperlipidemia 49035529 E78.5 Start crestor Hypertensive disorder 38 930784 I10 At target Hypothyroidism 64766275 E03.9 TSH at target Seizure disorder 9736915 02 G40.909 Currently on Lamictal from previous brain surgery Screening mammography 24 237673 Z12.31 declined Colorectal cancer screening not done 1956700790 100 Z53.9 UTD last lower endo 2 years ago. Active or passive immunization 308286185 Z23 update COVID vax and flu 7735 MD PRIME LACI Winslow OF [facility]-Main Office [address] [place], [place] [address]Ant [address] [place] [address] 04/03/2021 13:59:39 04/03/2021 15:33:18 Adult health examination 426806006 Z00.00 Patient here for Medicare Annual Wellness visit. See above discussion Advance care planning 71 2365305 Z71.89 I have discussed with patient/PO A [...] patient is Full Code. Depression screening 171 038823 Z13.31 Negative PHQ9, re-assess annually Screening for cardiovascular system disease 335417378 Z13.6 Reviewed with patient BP trend in the office, discussed about aspirin use, healthy lifestyle modificati ons, mediterran an or DASH diet, low salt <2g daily. Time spent counseling 10 min. Screening for alcohol abuse 751229013 Z13.39 Alcohol screening performed and is negative for substance abuse. I did ask her to cut down 9276 MD PRIME LACI Winslow OF [facility] [address] [facility] [place] [address] 05/15/2021 14:21:23 05/15/2021 15:19:01 Fatigue 46925532 R53.83 C/O fatigue stop am primidone temporaril y Obstructiv e sleep apnea syndrome 68220428 G47.33 She is using the Bipap and sleeps but it is uncomforta ble. Refer to sleep med here. 53583 MD PRIME LACI Winslow OF [facility] [address] [facility] [address] [place] [address] 06/07/2021 16:27:01 06/19/2021 17:11:34 Depressive disorder 67207703 F32.9 Currently on paroxetine . She is doing well on this, sleep is good. Essential tremor 4367742 09 G25.0 Currently on pramipexol e. Gastroesop hageal reflux disease 661820633 K21.9 Well-contr olled on PPI currently Hyperlipidemia 50055489 E78.5 On crestor. Diet discussed at length with patient. She is not able to exercise because her knee pain and balance problem. Hypertensive disorder 38 331562 I10 Patient is normotensi ve at home. Will not make any changes to her medication today. Hypothyroidism 65240129 E03.9 Last TSH was normal. On synthroid. Seizure disorder 6243288 02 G40.909 Currently on Lamictal from previous brain surgery History of total knee arthroplasty 1626944302 105 Z96.659 Patient is complainin g of having balance issues since her surgery. We will send her to physical therapy. Obstructiv e sleep apnea syndrome 84988892 G47.33 She is using the Bipap about 5 hours at night. Benign meningioma 110265 006 D32.9 Continue with her antiseizur e medicine. Her meningioma was removed without any difficulty and she has not had a seizure. Type 2 olivia betes mellitus 47506584 E11.9 Excellent control based on her last hemoglobin A1c. Her hemoglobin A1c was 5.6. 99855 MD PRIME LACI Winslow OF [facility]Main Office [address] [place], [place] [address]Ant [address] [place] [address] 09/20/2021 15:15:16 09/20/2021 16:43:57 Essential tremor 085583274 G25.0 Currently on pramipexol e. Benign meningioma 873327 006 D32.9 Having an MRI needs lab Hyperlipidemia 29853891 E78.5 On crestor. Diet discussed at length with patient. She is not able to exercise because her knee pain and balance problem. Hypertensive disorder 38 088727 I10 Patient is normotensi ve at home. Will not make any changes to her medication today. Hypothyroidism 86038112 E03.9 Last TSH was normal. On synthroid. Seizure disorder 3254627 02 G40.909 Currently on Lamictal from previous brain surgery Candidiasis of vagina 72 454347 B37.3 01496 MD PRIME LACI Winslow OF [facility] Office [address] [place], [place] [address] [place] [address] 10/05/2021 13:19:20 10/05/2021 14:02:29 Administration of SARS-CoV-2 antigen vaccine 615678048 Z23 1st booster administer ed to patient. She can take tylenol as needed for discomfort . Candidiasis of vagina 72 872446 B37.3 Patient has been using Dial soap in her vagina. Skin is very dry and red. There is a thin odorless discharge. I recommende d that she stops using soap or use some kind of vaginal soap like summer's sandeep. Also start boric acid suppositor ies to help restore the pH. Intertrigo 27759858 L30. 4 Start power. Patient is very clean but she has a pendulous abdomen. Start nystatin powder. 85164 MD PRIME LACI Winslow OF [facility] Office [address] [place], [place] [address]Ant [address] [place] [address] 10/22/2021 16:17:52 10/22/2021 17:02:37 Dyspnea 371765931 R06.00 Patient has been experienci ng SOB with ambulation . She had a cardiologi [facility] t recently and was told her heart was ok, neverthele ss she seems winded after walking short distance. Candidiasis of vagina 72 606486 B37.3 Start using Boric Acid, no soap, and start fluconazol e for 6 months once per week. Hypertensive disorder 38 787698 I10 BP slightly above goal of < 130/90. Patient is normotensi ve at home. No changes to medication . 70822 MD PRIME LACI Winslow OF [facility] Office [address] [place], [place] [address] [place] [address] 12/26/2021 12:57:22 12/26/2021 13:15:03 Administration of influenza vaccine 87585966 Z23 MD PRIME LACI Winslow [facility] [address] [place], [place] [address] [place] [address] 01/30/2022 14:10:45 01/30/2022 15:24:44 Fatigue 21264067 R53.83 Patient was advised to use a CPAP pillow to improve sleep quality. Paresthesia 26808225 R20 .2 Patient will start vitamin B12 and folate supplement . Probable hypoventil ation but will start B12 and folate. Gastroesop hageal reflux disease 532821708 K21.9 Well-contr olled on PPI currently. Depressive disorder 3548 9007 F32.9 Currently on paroxetine . She is doing well on this. Hypertensive disorder 38 375651 I10 Blood pressure at target. Active or passive immunization 153843851 Z23 Flu vaccine is up-to-date Screening for malignant neoplasm of breast 070787527 Z12.39 Order mammogram 08155 MD PRIME LACI Winslow [facility]-Main Office [address] [place] [address] [address] [place] [address] 02/20/2022 14:26:28 02/20/2022 14:55:46 Acute left otitis media 981762397 H66.92 Start abx Hypertensive disorder 38 235089 I10 Increase coreg to 6.25 mg po bid Hyperlipidemia 28843424 E78.5 On crestor. Diet discussed at length with patient. She is not able to exercise because her knee pain and balance problem. 01251 FRANDY WILLIAMSON MD [facility]-Main Office [address] [place] [address] [address] [place] [address] 04/23/2022 12:59:55 04/23/2022 13:26:13 Adult health examination 946285555 Z00.00 *Patient was screened for depression using [...] well an immunizati on schedule. Memory impairment 107929 006 R41.3 Patient has concerns about her memory. I offered her a MOCA test but she is declining this today. She will check with her neurologis t. Depressive disorder 8596 9001 F32.9 On paxil, she is ok with this dose and does not wish to make change sto her regimen. She is more depress since her daughter . PHQ-9 score is 6 Morbid obesity 412880239 E66.01 Patient to come back to discuss weight loss. 99894 FRANDY WILLIAMSON MD OF [facility] Office [address] [place] [address] [address] [place] [address] 07/01/2022 13:44:03 07/01/2022 14:20:54 Acute bronchitis 06837524 J20.9 Acute, stable. Start treatment as below and continue supportive care at home. Patient was advised to RTC if symptoms worsen or do not improve in the next 3 days. Benign meningioma 293620 006 D32.9 Chronic, stable. She will continue with her antiseizur e medicine. Her meningioma was removed without any difficulty and she has not had a seizure. Type 2 olivia betes mellitus 08290812 E11.9 Chronic, stable. Reviewed labs, last Hgb A1c was 5.6. Well-contr olled on current regimen. Seizure disorder 7014411 02 G40.909 Chronic, stable. She will continue with her antiseizur e medicine. Her meningioma was removed without any difficulty and she has not had a seizure. 66895 FRANDY WILLIAMSON MD OF [facility] Office [address] [place], [place] [address]Ant [address] [place] [address] 07/15/2022 13:59:28 07/15/2022 14:30:58 Immunization due 960524083 Z28.39 Administer ed shingles vaccine. Polyuria 97752378 R35.89 New problem to us. She c/o of increased urination without drinking more fluids. She denies any dysuria, back pain, fever, chills, or any other associated symptoms at this time. Reviewed labs, last Hgb A1c was 5.6 and she does not take any diabetes medication . Ordered lab work. Hyperlipidemia 07330792 E78.5 Chronic, stable. She is currently on Rosuvastat in. Ordered lab work. Hypothyroidism 63459883 E03.9 Chronic, stable. She is currently on Levothyrox ine 25 mcg. Ordered lab work. Essential tremor 9632392 09 G25.0 Chronic, stable. She reports she will be taking part in a clinical research study w/ Savita tate for her essential tremors. Follows w/ neurologis t. 62176 FRANDY WILLIAMSON MD OF [facility] Office [address] [place] [address] [address] [place] [address] 09/25/2022 13:54:12 09/25/2022 14:30:37 Mass of left breast 7015276142 9218010 N63.20 Patient c/o a lump under her left axilla which she felt 4 weeks ago but can no longer feel herself. She denies any pain, redness, drainage, or other symptoms with this. I am unable to palpate the lesion she is referring to on exam today.Refe rred to [facility] for breast cancer screening. 18327 FRANDY WILLIAMSON MD [facility] [address] [place] [address] [address] [place] [address] 10/11/2022 13:01:33 10/11/2022 13:29:47 Viral screening 370271179 Z11.52 Rapid COVID test negative, discussed results with patient. Acute bronchitis 9993552 2 J20.9 New problem. Start oral antibiotic s and albuterol inhaler and continue Benzonatat e/supporti ve care.Patie nt was advised to RTC if symptoms worsen or do not improve with treatment. 56163 TEJINDER Reed MD OF [facility] Office [address] [place] [address] [address] [place] [address] 12/18/2022 13:34:59 12/18/2022 14:36:00 Essential tremor 660960525 G25.[address] Steel in [facility]. She should also follow with her neurologis t. Obesity 147983676 E66.9 We discussed about a weight loss [...] a week.Will come back for blood work. 06245 MD PRIME LACI Winslow OF [facility] Office [address] [place], [place] [address]Ant [address] [place] [address] 12/27/2022 14:40:52 12/27/2022 15:00:50 Active or passive immunization 883910792 Z23 Flu vaccine is up-to-date 56445 MD PRIME LACI Winslow [facility] Office [address] [place] [address] [address] [place] [address] 05/01/2023 13:17:37 05/01/2023 13:52:55 Hospital inpatient stay within past 30 days 1127694188 106 Z76.89 Admitted for dizziness and doing well now this has resolved. Essential tremor 9769627 09 G25.0 Currently on pramipexol e. This is working Benign meningioma 261253 006 D32.9 On lamictal for sz prophylaxi s Hyperlipidemia 06578600 E78.5 On crestor. Diet discussed at length with patient. She is not able to exercise because her knee pain and balance problem. Hypertensive disorder 38 284265 I10 At target Hypothyroidism 47890784 E03.9 Last TSH was normal. Seizure disorder 7025875 02 G40.909 Currently on Lamictal from previous brain surgery 94427 MD PRIME LACI Winslow OF [facility] Office [address] [place], [place] [address]Ant [address] [place] [address] 06/03/2023 12:58:20 06/03/2023 13:46:56 Adult health examination 981610630 Z00.00 Z13.31 Z71.89 Z13.39 Z13.6 A preventati [...] of baby aspirin. Advance care planning 71 3207068 Z71.89 Advance care planning was addressed during [...] minutes. Patient code status updated. Benign meningioma 543908 006 D32.9 On lamictal for sz prophylaxi s Depressive disorder 3548 9007 F32.9 Currently on paroxetine . She is doing well on this. Hyperlipidemia 52891015 E78.5 On crestor. Diet discussed at length with patient. She is not able to exercise because her knee pain and balance problem. Hypertensive disorder 38 873034 I10 At target Hypothyroidism 93678046 E03.9 Last TSH was normal. Seizure disorder 3175602 02 G40.909 Currently on Lamictal from previous brain surgery Prediabetes 292444678 R7 3.03 Check hgba1c Screening for malignant neoplasm of breast 834765957 Z12.39 Order mammogram for September Screening for malignant neoplasm of colon 516243385 Z12.11 order cologuard Screening for osteoporosis 538895178 Z13.820 Order Dexa Active or passive immunization 086440751 Z23 Flu vaccine is up-to-date 72860 Noe Camp MD PRIME MD ROBERT [facility]Main Office [facility][note 3]5 [facility] [address] [place] [address] 07/24/2023 12:48:18 07/24/2023 13:47:36 Congestive heart failure 53589931 I50.9 ImprovedPl anning to see Dr. Wallace in the next week. Hyperlipidemia 26994639 E78.5 On crestor. Diet discussed at length with patient. She is not able to exercise because her knee pain and balance problem. Hypertensive disorder 38 900076 I10 At target Hypothyroidism 18108197 E03.9 Last TSH was normal. History of sepsis 180827 6098 54887 Z86.19 Likely originated for an invasive procedure she had cystoscopy .She is doing well now no SOB. Morbid obesity 749563812 E66.01 diet and exercise d/w pt. Obstructiv e sleep apnea syndrome 78697284 G47.33 She is using the Bipap about 5 hours at night. Vaginitis 28158554 N76.0 95832 MD PRIME LACI Winslow OF [facility] Office [address] [place] [address] [address] [place] [address] 09/22/2023 15:44:50 09/22/2023 16:50:00 Hypertensive disorder 07057388 I10 At target Hyperlipidemia 68792645 E78.5 On crestor. Diet discussed at length with patient. She is not able to exercise because her knee pain and balance problem. Seizure disorder 8456980 02 G40.909 Currently on Lamictal from previous brain surgery Morbid obesity 475656091 E66.01 Diet and exercise d/w pt. Hypothyroidism 65971895 E03.9 Last TSH was normal. Depressive disorder 3548 9007 F32.9 Currently on paroxetine . She is doing well on this. Prediabetes 986124645 R7 3.03 A1c 5.9 Diet and exercise d/[place]. [address] TEJINDER WILLIAMSON MD OF [facility] Office [address] [place] [address] [address] [place] [address] 10/14/2023 14:51:08 10/14/2023 15:46:24 Pruritic rash 65940132 L28.2 NEW problem Back of neck.- Plan: Prescribe topical steroid cream for the neck rash, to be applied twice daily. Advise the patient to follow up if the rash does not improve within a few days. Seborrheic keratosis 394 779305 L82.1 NEW problem Plan: Order steroid solution for symptom relief. Instruct the patient to apply the solution BID and to follow up if symptoms do not improve. 95673 MD PRIME LACI Winslow OF [facility] Office [address] [place] [address] [address] [place] [address] 10/23/2023 13:50:30 10/23/2023 15:26:02 Essential tremor 356357161 G25.0 Currently on pramipexol e. This is working Hyperlipidemia 02520191 E78.5 On crestor. Diet discussed at length with patient. She is not able to exercise because her knee pain and balance problem. Hypertensive disorder 38 969686 I10 At target Hypothyroidism 58957682 E03.9 Last TSH was normal. Morbid obesity 725230483 E66.01 Diet and exercise d/w pt. Seizure disorder 3829034 02 G40.909 Currently on Lamictal from previous brain surgery Congestive heart failure 02107949 I50.9 ImprovedPl anning to see Dr. Wallace in the next week. Screening for malignant neoplasm of breast 254338665 Z12.39 Order mammogram for September Screening for malignant neoplasm of colon 251955377 Z12.11 Cologuard neg Screening for osteoporosis 553898235 Z13.820 Osteopenia cont with supplement al calcium Seborrheic dermatitis of scalp 569505531 L21.0 Improved Acute cystitis 80051333 N30.01 Culture urine Atrophic vaginitis 33053 000 N95.2 estrace Bacterial vaginosis 4197 75490 N76.0 flagyl Candidiasis of vagina 72 696168 B37.31 nystatin 03792 Noe Camp MD PRIME MD ROBERT [facility]Main Office [address] [place] [address] [facility] [address] [place] [address] 11/19/2023 12:51:09 11/19/2023 13:22:09 Depressive disorder 11147474 F32.9 Currently on paroxetine . She is doing well on this. Essential tremor 8723350 09 G25.0 Currently on pramipexol e. This is working Hyperlipidemia 41450615 E78.5 On crestor. Diet discussed at length with patient. She is not able to exercise because her knee pain and balance problem. Hypertensive disorder 38 135963 I10 At target Hypothyroidism 33630548 E03.9 Last TSH was normal. Morbid obesity 042052896 E66.01 Diet and exercise d/w pt.Cont with tirzepetid e 2.5 sc q weekm Type 2 olivia betes mellitus 58016967 E11.9 Excellent control based on her last hemoglobin A1c. Her hemoglobin A1c was 5.6. Atrophic vaginitis 76271 000 N95.2 Stopped the estradiol and the bleeding has resolved. Overactive urinary bladder 382254311 N32.81 Start oxybutinin 56428 MD PRIME GUSTAVO Winslow [facility]-Main Office [address] [place] [address] [place] [address] 12/22/2023 12:59:14 12/22/2023 13:24:21 Assisted living facility patient 1524924558 0987187 Z76.89 [facility] Hy[facility] 38 539870 I10 At target Seizure disorder 5129665 02 G40.909 Currently on Lamictal from previous brain surgery Obstructiv e sleep apnea syndrome 51049937 G47.33 She is using the Bipap about 5 hours at night. Type 2 olivia betes mellitus 60803002 E11.9 Excellent control based on her last hemoglobin A1c. Her hemoglobin A1c was 5.6. Intentiona l weight loss 859665161 R63.8 increase to 5 mg Morbid obesity 782710849 E66.01 Diet and exercise d/w pt.Cont with [...] 09/22/2023 1 [place] Silvana Shahid Payam [id number] Silvana Shahid Payam 09/22/2023 2 [employer] OPTIONS (MEDICARE SUPPLEMENT) Silvana Pringlezier Payam [id number] Silvana F Payam 10/14/2023 1 [place] Silvana Shahid Payam [id number] Silvana Zehra Payam 10/14/2023 2 [employer] OPTIONS (MEDICARE SUPPLEMENT) Silvana Shahid Villanueva Payam [id number] Silvana Zehra Payam 10/23/2023 1 [place] Silvana F Payam [id number] Silvana Zehra Payam 10/23/2023 2 [employer] OPTIONS (MEDICARE SUPPLEMENT) Silvana Shahid Villanueva Payam [id number] Silvana F Payam 11/19/2023 1 [place] Silvana F Payam [id number] Silvana Zehra Payam 11/19/2023 2 [employer] OPTIONS (MEDICARE SUPPLEMENT) Silvana Hare [id number] Silvana Hare 12/22/2023 1 [place] Silvana Hare [id number] Silvana Hare 12/22/2023 2 [facility] HEALTHCARE OPTIONS (MEDICARE SUPPLEMENT) Silvana Hare [id number] Silvana Hare Notes Date Note Type Note [...] commit to it. Noe Camp MD [address] [facility] [address], [place], [address], [facility] 09/22/2023 16:46:28 10/14/2023 text/html Chief Complaint: The [...] both shingles vaccinations. Isauro Rao MD [address] [facility] [address], [place], [address], [facility] 10/20/2023 07:23:19 10/23/2023 text/html he patient, who [...] increased bleeding, possibly external. Noe Camp MD [address] [facility] [facility] [address], [place], [address], [facility] - [facility] [place] 10/23/2023 15:21:25 11/19/2023 text/html The patient repo [...] which has calmed down after following their brand marketing manager's advice to limit its use to two [...] continuing the tirzepatide medication. Noe Camp MD [facility][note 3][address] [facility], [place], [address], [place] - [facility] [place] 11/19/2023 13:20:48 12/22/2023 text/html To presetns eusebio de jesusi Asst living eval Noe Camp MD [facility][note 3][address] [facility] [address], [place], [address], [place] - [facility] [place] 12/22/2023 13:23:12 OBGyn Episode No OBEpisode recorded.
--- OUTSIDE RECORDS SUMMARY | 2024-07-22 14:57 | XMS_ITS | Clinical Summary ---
Author Organization [facility] Address [address] [place] [address] Care Team Providers Care Manufacturing Associate Name Role Phone Jose Notron MD Primary Care Provider [phone] Allergies Active Allergy Reactions Criticality Noted Date [...] Type Department Care Team Description 05/13/2024 Abstract [facility] [address] [place] [address] Robe Mendoza MA 05/12/2024 Orders Only [facility] [address] [facility], [address] [place] [address] Sadie Villasenor MD 05/05/2024 Telephone [facility] [address] [facility], [facility] [address] [place] [address] Sadie Villasenor MD Blood Pressure from Last [...] Comments Blood Pressure 112/70 02/13/2024 11:49 AM [employer]IFT [employer] MECH[employer]IC Pulse 71 02/13/2024 11:49 AM LIFT TR[employer] MECHANIC Temperature - - Respiratory Rate - - Oxygen Saturation 91% 02/13/2024 11: 49 AM L[employer] TR[employer] MECHANIC Inhaled Oxygen Concentration - - Weight 112.2 kg (247 lb 6.4 oz) 024 11:49 AM LIFT TR[employer] MECHANIC Height 162.6 cm (5' 4 ) 02/13/2024 11:4 9 AM LIFT TR[employer] MECHANIC Body Mass Index 42.47 02/13/2024 11:49 AM LIFT TR[employer] MECHANIC Plan of Treatment Upcoming Encounters Date Type Department Care Team (Late st Contact Info) Description 08/24/2024 1:00 PM CDT Office Visit [facility] [address] [facility], [address] [place] [id number] Monet Beltran MD [address] [place] [address] 09/03/2024 12:00 PM CDT Office Visit [facility] [address] Sadie Villasenor MD [address] [facility] [address] [place], [place] [id number] Health Maintenance Due Date Last Done Comments [...] - 2023-2 5 season) 2023 PHQ-2 (Physician [place]) 03/24/2024 Meningococcal B Vaccine Aged Out No [...] Result from Last [address] [facility] Care Teams Manufacturing Associate Relationship Specialty Start Date End Date Jose Norton MD [address] [place] [address] PCP - General FAMILY PRACTICE 02/13/24
--- OUTSIDE RECORDS SUMMARY | 2024-07-22 14:57 | XMS_ITS | Patient Health Record ---
Author Organization [employer] Address [address] [place] [address] [place] [address] [phone] Support Name Relationship Address Phone JAYJAY JACKSON Guarantor Unknown [phone] ALLERGIES No Known Allergies REASON FOR REFERRAL [...] Hypothyroidism, unspecified (E03.9) Active confirmed Hypothyr oidism (59541116) Problem Essential tremor (G25.0) Active confirmed 233372504 Problem Essential hypertension (I10) Active confirmed 14021459 Problem Gastroesophageal reflux disease without esophagitis (K21.9) Active confirmed 056138536 Problem Depression, unspecified depression type (F32.9) Active confirmed 63355434 Problem Psychophysiological insomnia (F51.04) Active confirmed 712328807 Problem Hyperlipemia, mixed (E78.2) Active confirmed Mixed hyperlipidemia (795776826) PLAN OF TREATMENT Pending Test Test Name Order Date Chest X-ray PA and lateral 06/06/2020 Urinalysis, Complete 06/06/2020 Urine Culture and Sensitivity 06/06/2020 Insurance Providers Payer Name Payer Address Payer Phone Subscriber Number Group Number Insured Name Patient Relationship to Insured Coverage Start Date Coverage End Date Medicare of [place] [employer] [address] [address] [place] [address] [id number] JAYJAY JACKSON Self - patient is the insured [facility] Medicare Supplement [address] JYOTI RAY FENG [phone] [id number] JAYJAY JACKSON Self - patient is the insured MEDICAL (GENERAL) HISTORY Medical History History ICD Code Hypertension Hyperlipidemia Hypothyroid Depression Surgical History Surgery Date(Month/Year) menningioma
--- OUTSIDE RECORDS SUMMARY | 2024-07-22 14:57 | XMS_ITS | Data Portability ---
Author Organization [place] - [facility] [employer] Address [address] [place] [address] Care Team Providers Care Straw Hat Presser Name Role Phone DEBI MATOS Primary Care Provider [phone] Assessment No assessment recorded. Plan of Treatment [...] By Organization Details Last Modified Time 09/15/2023 [id number] The member was located in {{[facility]}} at the time of this call. [...] spent in service of member: {{ 10#}} [email or web address] Not available 09/15/2023 15:29:17 09/29/2023 [id number] General Information During the time of {{telephonic* vide o call}} member was located in {{[facility] tra veling outside state of origin}}. Member is enrolled in {{diabetes hyperte nsion* diabetes & hyptertension}} program. During the call the nurse reviewed patients blood pressure and was able to address patient's concerns and/or questions. Clinical Picture Average BP Over last {{7 30*}} days: Systolic {{ 125#}} Diastolic {{ 70#}} . Based on member's readings and the parameters set by [employer], member's blood pressure is {{low at goal [...] {{Time 4#}} All members must have an [employer] visit at minimum every 6 months while active, or when meeting escalation criteria. A [employer] follow-up visit {{was scheduled today was offered today and the member refused was not offered/needed today}}. Members next [employer] follow-up appointment is confirmed on {{Date}} between [...] to member's care plan for additional details. [email or web address] Not available 09/29/2023 16:06:52 10/13/2023 [id number] General Information Member was contacted via interactive {{telephonic outreach* video call}} and was located in {{[facility]* [facility] a [facility] outside our service area}}. Call recording disclaimer [...] readings and the parameters set by [employer], member's blood pressure is {{low at goal* [...] no symptoms endorsed by member*}} a [employer] follow-up visit {{has has not*}} been recommended. [...] PM EDT All members must have an [employer] visit at minimum every 6 months while active, or when meeting escalation criteria. A [employer] follow-up visit {{was scheduled today was offered today and the member refused was not offered/needed today* is already scheduled}}. Members next [employer] follow-up appointment {{has not been scheduled* is on}} {{}} between {{9:00-11:00 AM 11:00-2:00 PM 2:00-5:00 pm}}. Total time spent in the care of the member: {{ 15#}} minutes [email or web address] Not available 10/13/2023 16:08:10 10/27/2023 [id number] General Information Member was contacted via interactive {{telephonic outreach* video call}} and was located in {{[facility]* [facility] a state outside our service area}}. [...] member's readings and the parameters set by [employer], member's blood pressure is {{low at goal* [...] no symptoms endorsed by member*}}, a [employer] follow-up visit {{has has not*}} been recommended. [...] {{ 11/09#}} All members must have an [employer] visit at minimum every 6 months while active, or when meeting escalation criteria. A [employer] follow-up visit {{was scheduled today was offered today and the member refused was not offered/needed today* is already scheduled}}. Members next [employer] follow-up appointment {{has not been scheduled is on}} {{}} between {{9:00-11:00 AM 11:00-2:00 PM 2:00-5:00 pm}}. Total time spent in the care of the member: {{ 10#}} minutes [email or web address] Not available 10/27/2023 15:39:53 11/10/2023 [id number] General Information Member was contacted via interactive {{telephonic outreach* video call}} and was located in {{[facility]* [facility] a [facility] outside our service area}}. Call recording disclaimer [...] member's readings and the parameters [facility] [employer] [facility], member's blood pressure is {{low at goal* [...] no symptoms endorsed by member*}}, a [employer] follow-up visit {{has has not*}} been recommended. [...] {{ 12/07#}} All members must have an [employer] visit at minimum every 6 months while active, or when meeting escalation criteria. A [employer] follow-up visit {{was scheduled today was offered today and the member refused was not offered/needed today* is already scheduled}}. Members next [employer] follow-up appointment {{has not been scheduled is on}} {{}} between {{8:00 AM - 10:59 AM ET 11:00 AM - 1:59 PM ET 2:00 PM - 5:00 PM ET}}. Total time spent in the care of the member: {{ 15#}} minutes [email or web address] Not available 11/10/2023 16:04:17 Reason for Referral None Reported. Problems Name Problem SNOMED Code Status Onset Date Resolution Date Notes Provider Name and Address Organization Details Recorded Time Essential hypertension 76035575 Active 2023 Carisa osorio, [employer] [address] , [place], [address], [facility] 14:05:29 Prediabetes 583281169 Active 2023 Carisa osorio, [employer] [address] , [place], [address], [facility] 14:05:31 Obesity 743468383 Active 2023 Carisa osorio, [employer] [address] , [place], [address], [facility] 14:05:43 Atrial fibrillation 08853474 Active 2023 Carisa osorio, [employer] [address] , [place], [address], [facility] 4 14:05:49 Anxiety 90655408 Active 2023 Carisa osorio, [employer] [address] , [place], [address], [facility] 14:05:56 Depressive disorder 80576077 Active 2023 Carisa osorio, [employer] [address] , [place], [address], [facility] 14:06:02 Epilepsy 32612855 Active 2023 Carisa Hamilton devon, [employer] [address] , [place], [address], [place] [facility] 14:06:12 Sleep apnea 33556996 Active 2023 Carisa Hamilton devon, [employer] [address] , [place], [address], [place] [facility] 14:06:20 Hypothyroidism 92260309 Active 2023 Carisa osorio, [employer] [address] , [place], [address], [place] [facility] 14:06:28 Hyperlipidemia 37165086 Active 2023 Carisa osorio, [employer] [address] , [place], [address], [place] [facility] 14:06:34 Problem Notes None recorded. Procedures Surgical History Date Name Laterality Status Provider Name and Address Organization Details Recorded Time cholecystectomy completed Carisa Blunt , TEJIND[employer] [address], [place], [address], [place] [facility] 07/03/2023 14:01:30 chin lift completed Carisa Blunt , TEJINDER [address], [place], [address], [place] [facility] 07/03/2023 14:01:49 total replacement of left knee joint completed Carisa Blunt NP [address], [place], [address], [place] [facility] 07/03/2023 14:02:00 total replacement of right knee joint completed Carisa Blunt NP [address], [place], [address], [place] [facility] 07/03/2023 14:02:10 Exploration maxillary sinus completed Carisa Blunt NP [address], [place], [address], [facility] 07/03/2023 14:02:41 craniectomy completed Carisa Jose Raul , TEJINDER [address], [place], [address], [facility] 07/03/2023 14:02:52 Imaging Results None recorded. Procedure [...] Updated DateTime 10/27/2023 162.56 cm 40.3 kg/m2 026277.21 g [facility] 10/27/2023 15:39:57 Social History Question Answer Notes LastModified by Organizat ion Details LastModified Time Tobacco Smoking Status Former Smoker Carisa Blunt, TEJ[employer] [address], [place], [address], [facility] 07/03/2023 13:54:10 What Is Your Level Of Alcohol Consumption? Moderate Information not available 07/03/2023 What Is Your Level Of Caffeine Consumption? Moderate Information not available 07/03/2023 When Did You Quit Smoking? 18+yearssincel marieyessenia [facility] Information not available 07/03/2023 Sex: Unknown Functional [...] SNOMED-CT Code Diagnosis ICD10 Code Diagnosis Note [id number] Carisa Nirmala er, [employer] PS_Provid er Schedule [address] [place] [address] 07/03/2023 13:40:24 07/03/2023 14:08:36 Essential hypertension 38327535 I10 Prediabetes 523465814 R7 3.03 [id number] Carisaray Hamiltonv er, [employer] NS_Nursin g Schedule [address] [place] [address] 07/21/2023 15:13:02 07/21/2023 16:39:49 Essential hypertension 02322154 I10 Prediabetes 336618237 R7 3.03 [id number] Carisa Joyv er, [employer] NS_Nursin g Schedule [address] [place] [address] 08/01/2023 15:56:41 08/01/2023 17:01:56 Essential hypertension 88423730 I10 Prediabetes 818985099 R7 3.03 768015 Carisa Wason-Fawv er, [employer] NS_Nursin g Schedule [address] [place] [address] 08/04/2023 15:02:39 08/04/2023 16:55:57 Essential hypertension 16502170 I10 Prediabetes 029789284 R7 3.03 [id number] Carisa Wason-Fawv er, [employer] NS_Nursin g Schedule [address] [place] [address] 09/01/2023 15:48:33 09/01/2023 17:00:58 Essential hypertension 54230148 I10 Prediabetes 922209048 R7 3.03 [id number] Carisa Wason-Fawv er, [employer] NS_Nursin g Schedule [address] [place] [address] 09/15/2023 15:19:55 09/16/2023 08:36:48 Essential hypertension 46901442 I10 Prediabetes 871932777 R7 3.03 [id number] Carisa Wason-Fawv er, [employer] NS_Nursin g Schedule [address] [place] [address] 09/29/2023 15:55:33 09/29/2023 17:01:09 Essential hypertension 29331300 I10 Prediabetes 431638580 R7 3.03 [id number] Carisa Wason-Fawv er, [employer] NS_Nursin g Schedule [address] [place] [address] 10/13/2023 15:55:16 10/13/2023 17:04:07 Essential hypertension 84506718 I10 Prediabetes 858400497 R7 3.03 [id number] Carisa Wason-Fawv er, [employer] NS_Nursin g Schedule [address] [place] [address] 10/27/2023 15:31:55 10/27/2023 16:50:14 Essential hypertension 29815392 I10 Prediabetes 762818893 R7 3.03 [id number] Carisa Wason-Fawv er, [employer] NS_Nursin g Schedule [address] [place] [address] 11/10/2023 15:53:20 11/10/2023 16:40:14 Essential hypertension 54948449 I10 Health Concerns Section Related Observation LastModified by Organization Detai ls LastModified Time None Recorded Concern Status LastModified by Organization Details LastModified Time None Recorded Advance Directives Directive None Recorded Payers Encounter Date Sequence Insurance Name Policy Number Policy Schilling Covered Member ID Schilling Member ID Guarantor Name 09/15/2023 1 [place] Silvana F Payam [id number] Silvana Payam 09/29/2023 1 [place] Silvana F Payam [id number] Silvana Payam 10/13/2023 1 [place] Silvana F Payam [id number] Silvana Payam 10/27/2023 1 [place] Silvana F Payam [id number] Silvana Payam 11/10/2023 1 [place] Silvana F Payam [id number] Silvana Payam OBGyn Episode No OBEpisode recorded.
== END 2024-07-22 14:07 | disposition home or self-care (01) ==
PROVIDERS: PCP Family Medicine; Visit Provider Nurse Practitioner Family
DX: J32.0 Chronic maxillary sinusitis (principal)
CPT/HCPCS: 70486

== ENCOUNTER 2024-08-03 02:36 | Day surgery (SDC) | payer MEDICARE, SELFPAY ==
--- NOTE | 2024-07-01 09:26 | PC.NURSE ---
Report to the Outpatient Waiting Room, entrance under the green pavilion located off [facility], at time _9 AM on date __07/06/24 . Planned Procedure Time: __11 AM .? Time changes happen often and if your time is changed the preop area will call you the afternoon before. - You and your visitor will be asked to self-screen and do not enter if you have any COVID symptoms. Please call surgeon if you need to reschedule. - A mask is optional within the hospital at this time. Patients may have clear liquids (water, carbonated beverages, clear teas, apple juice) until 3 hours prior to surgery ( 8 AM) with a maximum of 20 ounces. - No food from midnight until time of surgery and no smoking, or chewing tobacco (or any form of nicotine). No chewing gum, candy or mints. Take only the following medications with a SIP of water on the morning of surgery: __CARVEDILOL,LAMOTRIGINE,PAROXETINE DO NOT STOP ANY OF YOUR OTHER PRESCRIPTION MEDICATIONS PRIOR TO SURGERY EXCEPT THE FOLLOWING Hold all vitamins and supplements for 3 days per anesthesiologist. LAST DOSE07/02/24 Medications to discontinue per physician PT STATES HOLD ASPIRIN 7 DAYS PRE OP PER DR MARTINEZ Date to take last dose____06/28/24 Please no make-up, nail czech, hairspray, perfume, deodorant, or body powder the day of surgery.? No jewelry (including any body piercings) or valuables the day of surgery, leave them at home.? Please take a shower or bath the night before, or the morning of, surgery with an antibacterial soap.? Wear comfortable, loose fitting clothing.? Children are encouraged to wear pajamas. - Jewelry must be removed prior to entering the operating room.? Rings and piercings that are not removed may be cut off. - The hospital will not accept responsibility for valuables.? - Please leave all valuables, including medications, at home the day of surgery. If you are going home after surgery, a licensed regional refrigerated cdl truck driver must drive you home.? - NO public transportation without another adult if you receive anesthesia. - We recommend that an adult stay with you for 24 hours following discharge. - We also recommend that you do not drive, make important decision, drink alcoholic beverages, or take any drugs that were not prescribed by your health care provider for at least 24 hours after your discharge time. Follow any additional instructions given to you from your surgeon. Telephone instructions given to ___PATIENT and asked if any additional questions and then verbalized understanding. Patient advised to call surgeon office or pre surgery nurse liaison [phone] if any additional questions.
[2024-07-01 10:54] VITALS: BMI 41.2
--- NOTE | 2024-07-07 09:40 | PC.NURSE ---
Report to the Outpatient Waiting Room, entrance under the green pavilion located off [facility], at time __7am on date __07/13/24 . Planned Procedure Time: __9 am .? Time changes happen often and if your time is changed the preop area will call you the afternoon before. - You and your visitor will be asked to self-screen and do not enter if you have any COVID symptoms. Please call surgeon if you need to reschedule. - A mask is optional within the hospital at this time. Patients may have clear liquids (water, carbonated beverages, clear teas, apple juice) until 3 hours prior to surgery ( 6am) with a maximum of 20 ounces. - No food from midnight until time of surgery and no smoking, or chewing tobacco (or any form of nicotine). No chewing gum, candy or mints. Take only the following medications with a SIP of water on the morning of surgery: ___CARVEDILOL,LAMOTRIGINE,PAROXETINE DO NOT STOP ANY OF YOUR OTHER PRESCRIPTION MEDICATIONS PRIOR TO SURGERY EXCEPT THE FOLLOWING Hold all vitamins and supplements for 3 days per anesthesiologist.STATES LAST DOSE 07/02/24 Medications to discontinue per physician PT STATES ___ASPIRIN 7 DAYS PRE OP __PER DR MARTINEZ STATES LAST DOSE 06/28/24 Please no make-up, nail setswana, hairspray, perfume, deodorant, or body powder the day of surgery.? No jewelry (including any body piercings) or valuables the day of surgery, leave them at home.? Please take a shower or bath the night before, or the morning of, surgery with an antibacterial soap.? Wear comfortable, loose fitting clothing.? Children are encouraged to wear pajamas. - Jewelry must be removed prior to entering the operating room.? Rings and piercings that are not removed may be cut off. - The hospital will not accept responsibility for valuables.? - Please leave all valuables, including medications, at home the day of surgery. If you are going home after surgery, a licensed tank driver must drive you home.? - NO public transportation without another adult if you receive anesthesia. - We recommend that an adult stay with you for 24 hours following discharge. - We also recommend that you do not drive, make important decision, drink alcoholic beverages, or take any drugs that were not prescribed by your health care provider for at least 24 hours after your discharge time. For Pediatric surgeries, we recommend two adults accompany the child home. Follow any additional instructions given to you from your surgeon. Telephone instructions given to ___PT'S SPOUSE JON and asked if any additional questions and then verbalized understanding. Patient advised to call surgeon office or pre surgery nurse liaison [phone] if any additional questions.
--- OUTSIDE RECORDS SUMMARY | 2024-07-13 03:44 | XMS_ITS | Data Portability ---
Author Organization [place] [facility] [employer], Main Office Address [address] [place] [address] Assessment No assessment recorded. Plan of Treatment Reminders Order Date Submit Date Provider Last Modified By Organization Details Last Modified Time Details Appointments None recorded. Lab None recorded. Referral None recorded. Procedures None recorded. Surgeries None recorded. Imaging CT, sinuses, w/o contrast - [facility] PROT[facility]. PLEASE GIVE PATIENT A COPY OF DISK. FAX RESULTS TO . THANKS! 2024 025 [facility] [[email or web address]][address] [place] [address] - [facility], [address], [place] [address], [place], [address], 5 16:40:55 Medication Orders fluticasone propionate 50 mcg/actuati on nasal spray,suspe nsion 2024 025 [id number], [address] [place], [place], [id number], 5 16:57:18 doxycycline hyclate 100 mg tablet 2024 025 [facility] #[id number], [address] [place], [place], [phone], 5 16:57:19 Medrol (Robles) 4 mg tablets in a dose pack 2024 025 [facility] #[id number], [address] [place], [place], [phone], 5 16:57:17 Patient TargetsNo targets recorded. Patient Instructions Encounter Date Encounter Id Patient Instructions Last Modified By Organization Details Last Modified Time 06/22/2024 [id number] prescribed doxycycline and Medrol Dosepak for antimicrobial coverage and inflammation reduction due to persistent chronic sinusitis. Additionally prescribed fluticasone nasal spray for management. Discussed use of the Valsalva maneuver to aid in opening left Eustachian tube. She will have a sinus CT completed. We will follow up those results become available. [email or web address] Not available 06/23/2024 10:12:28 Reason for Referral None Reported. Problems Name Problem SNOMED Code Status Onset Date Resolution Date Notes Provider Name and Address Organization Details Recorded Time Chronic sinusitis 96949236 Active 2024 Deidre delaney [facility] 16:46:47 Dysfunction of left eustachian tube 4554570862166 106 Active 2024 Laura Tiwari, HOMA [address] [facility], [facility] [address], [place], [address], [facility] [employer] [facility] 10:11:22 Problem Notes None recorded. Procedures Surgical History Date Name Laterality Status Provider Name and Address Organization Details Recorded Time craniotomy completed Laura Jett RN [facility] 06/23/2024 09:48:25 Sinus Surgery completed Laura Jett RN [facility] 06/23/2024 09:48:32 total knee replacement completed Laura Jett RN [facility] 06/23/2024 09:48:45 excision of bunion completed Laura Jett RN [facility] 06/23/2024 09:48:57 Cholecystectomy completed Laura Jett RN [facility] 06/23/2024 09:49:03 myringotomy and insertion of tympanic ventilation tube completed Laura Jett RN [facility] 06/23/2024 09:49:32 Imaging Results None recorded. Procedure Notes None recorded. Medical Equipment None Reported. Allergies No known drug allergies Medications Name Sig Start Date Stop Date Status Note LastModified by Organization Details LastModified Time losartan 50 mg tablet TAKE 1 TABLET BY MOUTH EVERY DAY active Not Available Not Available No t Available furosemide 40 mg tablet TAKE 1 TABLET BY MOUTH EVERY DAY active Not Available Not Available No t Available carvedilol 6.25 mg tablet TAKE 1 TABLET BY MOUTH TWICE DAILY WITH FOOD active Not Available Not Available No t Available paroxetine 10 mg tablet Take 1 tablet every day by oral route. active Not Available Not Available No t Available cefpodoxime 100 mg tablet TAKE 1 TABLET BY MOUTH EVERY 12 HOURS FOR 7 DAYS active Not Available Not Available N ot Available sulfamethoxa zole 800 mg-trimethop rim 160 mg tablet TAKE 1 TABLET BY MOUTH TWICE DAILY active Not Available Not Available No t Available levothyroxin e 25 mcg tablet TAKE 1 TABLET BY MOUTH EVERY DAY active Not Available Not Available No t Available primidone 250 mg tablet TAKE 1 TABLET BY MOUTH AT BEDTIME active Not Available Not Available No t Available benzonatate 100 mg capsule TAKE 1 CAPSULE BY MOUTH THREE TIMES DAILY active Not Available Not Available Not Available paroxetine 30 mg tablet TAKE 1 TABLET BY MOUTH EVERY DAY active Not Available Not Available No t Available prednisone 50 mg tablet TAKE 1 TABLET BY MOUTH DAILY FOR 5 DAYS active Not Available Not Available N ot Available methylpredni solone 4 mg tablets in a dose pack FOLLOW PACKAGE DIRECTIONS active Not Available Not Available N ot Available cefdinir 300 mg capsule TAKE 1 CAPSULE BY MOUTH EVERY 12 HOURS active Not Available Not Available No t Available fluticasone propionate 50 mcg/actuatio n nasal spray,suspen winston SHAKE LIQUID AND USE 1 SPRAY IN EACH NOSTRIL EVERY DAY active Not Available Not Available No t Available doxycycline hyclate 100 mg tablet TAKE 1 TABLET BY MOUTH TWICE DAILY FOR 10 DAYS active Not Available Not Available No t Available lamotrigine 100 mg tablet TAKE 1 TABLET BY MOUTH TWICE DAILY active Not Available Not Available No t Available rosuvastatin 40 mg tablet TAKE 1 TABLET BY MOUTH EVERY DAY active Not Available Not Available No t Available levothyroxin e active Not Available Not Available Not Available ipratropium bromide active Not Available Not Available Not Available lamotrigine active Not Available Not A vailable Not Available losartan active Not Available Not Avai lable Not Available primidone active Not Available Not Zulema ilable Not Available rosuvastatin active Not Available Not Available Not Available cholecalcife rol (vitamin D3) 50 mcg (2,000 unit) capsule TAKE 1 CAPSULE BY MOUTH EVERY DAY active Not Available Not Available No t Available Vitals Date Recorded Body weight Body mass index (BMI) Body height Body temperature Provider Name and Address Organization Details Last Updated DateTime 06/22/2024 407646.95 g 41.7 kg/m2 162.56 cm 97.6 [degF] HOMA Gonzales [address] [facility] [address], [address] , [place] [facility] 06/22/2024 16:47:09 Social History None recorded. Functional Status None recorded. Mental Status None recorded. Family History Nothing Reported. Medical History Condition Response HIGH CHOLESTEROL / HYPERLIPIDEMIA Y EAR OR HEARING PROBLEMS Y HYPOTHYROIDISM Y DEPRESSION (INCLUDING POST ) Y OBESITY Y ENT Y SEIZURES/EPILEPSY Y HYPERTENSION Y Gynecological HistoryNo gynecological history recorded. Obstetrics History GPAL:G 0 P 0 0 0 0 Past Encounters Encounter ID Performer Location Encounter Start Date Encounter Closed Date Diagnosis/Indication Diagnosis SNOMED-CT Code Diagnosis ICD10 Code Diagnosis Note [id number] HOMA Gonzales [facility] [place] [address] [place] [address] 06/22/2024 16:14:45 06/23/2024 10:13:04 Chronic sinusitis 90778649 J32.9 Dysfunctio n of left eustachian tube 2669789634 898763 H69.92 Health Concerns Section Related Observation LastModified by Organization Detai ls LastModified Time None Recorded Concern Status LastModified by Organization Details LastModified Time None Recorded Advance Directives Directive None Recorded Payers Encounter Date Sequence Insurance Name Policy Number Policy Schilling Covered Member ID Schilling Member ID Guarantor Name 06/22/2024 1 [place] Silvana Hare [id number] Silvana Hare 06/22/2024 2 [facility]MEDICARE SUPPLEMENT) Silvana Hare [id number] Silvana Hare Notes Date Note Type Note Provider Name and Address Organization Details Recorded Time 06/22/2024 text/html This patient has a past medical history significant for meningioma, HTN, hypothyroidism, depression, and anxiety who presents to the office with a complaint of hearing loss to her left ear that began approximately 10 days ago. She does note that she has underlying tinnitus affecting the right ear due to a history with a tympanoplasty that occurred many many years ago. She notes that she has been having sinus congestion, sinus pressure, coughing, and wheezing for the last months. She states that she has been on a round of cefdinir and oral steroids without symptom resolution. She does admit that after 5 days of the cefdinir she did not notice any and this medication. She is also utilize Robitussin, Mucinex, Tessalon Perles with limited symptom management. She does note that she has an underlying history with chronic sinusitis and has had a sinus surgery approximately 30 years ago. She has not had any recent imaging. Laura Tiwari, BRONZE CHASER [address] [facility], [facility] [address], [place], [address], [facility] 06/23/2024 10:12:31 OBGyn Episode No OBEpisode recorded.
--- OUTSIDE RECORDS SUMMARY | 2024-07-13 03:44 | XMS_ITS | Encounter Summary ---
Author Organization [facility] Address [address] [place] [address] Care Team Providers Care Radar Scientist Name Role Phone Jose Norton MD Primary Care Provider [phone] Encounter Details Date Type Department Care Team (Late st Contact Info) Description 05/13/2024 Abstract [facility], [address] [place], [place] [id number] Robe Mendoza MA Social History Tobacco Use [...] Description 08/24/2024 1:00 PM CDT Office Visit [facility] - [address], [address] [place] [address] Monet Beltran MD [address] [place] [address] 09/03/2024 12:00 PM CDT Office Visit [facility] [address] Sadie Villasenor MD [facility] [address] [place] [address] documented as of this encounter Procedures Procedure [...] on filedocumented in this encounter Care Teams Radar Scientist Relationship Specialty Start Date End Date Jose Norton MD [address] [place], [place] [id number] PCP - General FAMILY PRACTICE 02/13/24 documented as of this encounter
--- OUTSIDE RECORDS SUMMARY | 2024-07-13 03:45 | XMS_ITS | Continuity of Care Document ---
Author Organization [facility] Address [address] [place] [address] [place] [address] Phone Care Team Providers Care Wood Engraver Name Role Phone Ildefonso Peralta MD Unavailable [...] Copied on Encounter OFFICE/OUTPA TIENT VISIT, EST [facility], [address], [place], [place], [address], [place] tel:[phone] [facility] ear pain1 (chief complaint) hypothyroi dism1 (chief complaint) anxiety1 (chief complaint) Otalgia, right earGeneralized Anxiety DisorderHypothyroid ism May- 5 Fabian Fregoso. [address], [place], [place], [address] , [place]. tel:[phone] [facility], [address], [place], [place], [address], [place] tel:[phone] [facility] No Information 5 Fabian Ildefonso. [address], [place], [place], [address] , [place]. tel:[phone] OFFICE/OUTPA TIENT VISIT, [facility], [address], [place], [place], [address], [place] tel:[phone] [facility] sick (chief complaint) HLP (chief complaint) tremor1 (chief complaint) HTN (chief complaint) Acute bronchitisEssential (primary) hypertensionTremorM ixed hyperlipidemia 5 Fabian Fregoso. [address], [place], [place], [address] , [place]. tel:[phone] [facility], [address], [place], [place], [address], [place] tel:[phone] [facility] No Information 5 Fabian Ildefonso. [address], [place], [place], [address] , [place]. tel:[phone] [facility], [address], [place], [place], [address], [place] tel:[phone] [facility] No Information 5 Fabian Fregoso. [address], [place], [place], [address] , [place]. tel:[phone] OFFICE/OUTPA TIENT VISIT, [facility], [address], [place], [place], [address], [place] tel:[phone] [facility] thyroid1 (chief complaint) anxiety1 (chief complaint) HTN (chief complaint) seizure1 (chief complaint) HLP (chief complaint) tremor1 (chief complaint) HypothyroidismTremo rEssential (primary) hypertensionMixed hyperlipidemiaOther epilepsyGeneralized Anxiety DisorderPolyp of colonOsteopenia 5 Fabian Fregoso. [address] [place], [place], [address] , [place]. tel:[phone] Family History Family Member Type Diagnosis Age At Onset Father Problem of 90 old age Sister Problem essential tremor Mother Problem of 80s ?? CVA Payers Payer name Insurance type Covered libertarian ID Authoriza tion(s) [place] Of [place] WPS MB [id number] Aarp Secondary CI [id number] Social History Type Description Quantity Date Captured [...] ordered Referral Referred To: FLAKITO VAUGHN [address] [place], [place], [phone] Ordered: Referrals: Allopathic & Osteopathic Physicians : Psychiatry & Neurology : Neurology. FLAKITO VAUGHN. Evaluate and treat ordered History Of Present Illness Encounter Date Complaint History Of Prese nt Illness anxiety1 Pt has chronic a nxiety and depression Pt takes paxil and doing ok Pt denies any suicidal or homicidal thought Pt denies any crying spells hypothyroidism1 Pt has hypothyro idism pt denies any dysphagia or neck pain Pt needs synthroid refilled ear pain1 pt was treated w [facility] for bronchitis and sinusitis recently post [...] in the past Pt denies any fever. HTN Pt has HTN Pt ta kes losartan and coreg and her bp is stable. Pt needs med refilled tremor1 Pt has chronic t remor. Pt is on primidone. Pt missed her clarisa with neurology and she needs to reschedule HLP Pt has HLP Pt ta kes crestor Pt denies any myalgia sick Pt went to ER for flu [...] for above symptoms. She denies any sob tremor1 Pt has chronic e ssential tremor. pt was seeing neurology in [place]. She just moved here .Pt needs referral to neurology Pt is on primidone for the past several years but has not helped much. Her neurologist in [place] ruled her out of parkinson disease. HLP Pt has HLP Pt ta karyna crestor. Pt denies any myalgia. seizure1 Pt has history o f meningioma s/p removal and she had seizure x 2 about 5 years ago Pt is on lamictal and she had not had seizure since 5 years ago. SHe had normal MRI two years ago. HTN Pt has HTN Pt ta kes losartan and coreg and bp is ok. Pt does not have any heart disease anxiety1 Pt has chronic a nxiety and depression Pt takes paxil and doing ok Pt denies any suicidal or homicidal thought Pt denies any crying spells thyroid1 Pt has borderlin e hypothyroidism Pt takes synthroid daily for 5 years Pt denies any dysphagia or neck pain Instructions Date Instruction Additional Infor jacob No Information Assessments Type Assessment Date assessment Otalgia, right ear assessment Generalized Anxiety Disorder May assessment Hypothyroidism Mental Status Date Cognitive Assessment Orientation - Acra ed to time, place, person, situation.
--- OUTSIDE RECORDS SUMMARY | 2024-07-13 03:45 | XMS_ITS | Data Portability ---
Author Organization [place] [facility] [employer] [facility] [place], Main Office Address [address] [place] [address] [address] [place] [address] Assessment No assessment recorded. Plan of Treatment [...] cter) . Not Available [facility] [address], [place], [address], 06/03/2023 01:50:29 05/30/1906/03/2023 SURES WAB(R ) ADV BACTE RIAL VAGIN OSIS (BV), TMA sureswab(R) adv bacterial vaginosis (bv), tma NEGATI VE negati ve normal Not Available [facility] [address], [place], [address], 06/03/2023 02:09:02 05/30/19 24 06/03/2023 SURES WAB(R ) ADV MADISON DA VAGIN ITIS (CV), TMA alfredo species NOT DETECT ED not detect ed normal Not Available [facility] [address], [place], [address], 06/03/2023 02:09:03 05/30/19 24 06/03/2023 SURES WAB(R [...] resul t. Not Available [facility] [address], [place], [address], 06/03/2023 02:09:03 05/30/19 24 06/03/2023 CULTU RE, [...] port Tube. Not Available [facility] [address], [place], [address], 06/03/2023 02:13:30 05/30/19 24 05/30/2023 LIQUI D-BAS ED pdf ACF Not Available [facility] [address], [place], [address], 06/05/2023 18:34:22 06/17/19 24 06/17/2023 PATHO LOGY pdf ACF Not Available [facility] [address], [place], [address], 06/22/2023 18:11:11 06/13/19 24 06/05/2023 [place], pelvi [...] Note [address] Main Office [address] [facility] [employer] [address] [place] [address] 05/30/2023 14:31:48 07/09/2023 10:21:30 [address] Main Office [address] [facility] [address] [place] [address] 06/17/2023 09:59:46 06/17/2023 12:49:35 [address] Main Office [address] [place], [place] [address] [address] [place] [address] 07/15/2023 13:36:49 07/15/2023 14:44:17 Health Concerns Section Related Observation LastModified by Organization Detai ls LastModified Time None Recorded Concern Status LastModified by Organization Details LastModified Time None Recorded Advance Directives Directive None Recorded Payers Encounter Date Sequence Insurance Name Policy Number Policy Schilling Covered Member ID Schilling Member ID Guarantor Name 05/30/2023 2 [employer] HE[employer] OPTIONS (MEDICARE SUPPLEMENT) Silvana Villanueva Payam [id number] Silvana Payam 05/30/2023 1 [place] Silvana F Payam [id number] Silvana Payam 06/17/2023 2 [employer] HE[employer] OPTIONS (MEDICARE SUPPLEMENT) Silvana Villanueva Payam [id number] Silvana Payam 06/17/2023 1 [place] Silvana F Payam [id number] Silvana Payam 07/15/2023 2 [employer] HE[employer] OPTIONS (MEDICARE SUPPLEMENT) Silvana Villanueva Payam [id number] Silvana Payam 07/15/2023 1 [place] Silvana F Payam [id number] Silvana Payam OBGyn Episode No OBEpisode recorded.
--- OUTSIDE RECORDS SUMMARY | 2024-07-13 03:45 | XMS_ITS | Data Portability ---
Author Organization [place] - [facility] [place], [email or web address] Address [address] [place] [id number] Care Team Providers Care Sinker Winder Name Role Phone MARILYN JAIN OTHER RADHA DUMONT Primary Care Provider ANN-MARIE BLANCO Spares Scheduler Assessment Encounter Date Assessment Date Assessment LastModified [...] presents for f/u of multiple GI complaints. [email or web address] Not available 11/19/2021 09:50:24 01/20/2023 01/20/2023 PT [...] mg tablet 2022 023 [email or web address] [id number] [address], [address] [place], [address], 16:56:38 primidone 50 mg tablet 2020 [facility] [address] [facility] [employer], [address] [place], [address], 14:55:36 primidone 250 mg tablet 2020 [facility] [address] [facility], [address] [place], [address], 14:55:37 lamotrigin e 25 mg tablet 2020 [facility] [address] [facility], [address] [place], [address], 14:55:37 venlafaxin e 75 mg tablet 2020 [facility] [address] [facility], [address] [place], [address], 14:55:37 Patient TargetsNo targets recorded. Patient Instructions Encounter Date Encounter Id Patient Instructions Last Modified By Organization Details Last Modified Time 11/19/2021 [id number] diarrhea: care instructions [email or web address] Not available 11/19/2021 10:02:40 11/29/2022 [id number] diarrhea: care instructions Not available 11/29/2022 15:51:41 Reason for Referral None Reported. Results Created Date Observation Date Name Description Value Unit Range Abnormal Flag Note LastModifiedBy Organization Detail LastModifiedTime 12/26/19 22 12/25/2021 DEXA, axial skele ton Physic [facility] Rylie t: AZALEA JACKSON [id number] Sex: Female Locati on: [facility] Orderi ng Physic arlene: SOCORRO GOMES LOCKSTITCH ZIPPER SETTER Bone Densit y ACCESS ION EXAM DATE/T [...] Artemio Pena MD On 2021 16:21: 06; -[facility] [id number] Final Signed by: ARTEMIO PENA MD Signed (Elect demetrio queen): 2021 04:21 pm EDT [email or web address] - Radiology Scheduling [address] [facility], [place], [address], 12/31/2021 15:34:33 Result Notes None recorded. Problems Name Problem SNOMED Code Status Onset Date Resolution Date Notes Provider Name and Address Organization Details Recorded Time Hypercholeste rolemia 73515510 Active Not Available [facility] 12:50:53 Migraine 15717039 Active Not Available [facility] 12:50:53 Essential hypertension 58134851 Active Not Available [facility] 12:50:52 Tubular adenoma 039539120 Active Not Available [facility] 12:50:53 Hyperglycemia 74434310 Active Not Available [facility] 12:50:52 Gastroesophag eal reflux disease 675599096 Active Not Available [facility] 12:50:53 Epigastric pain 85821390 Active Not Available [facility] 10/16/202 1 12:50:53 Obesity 254486079 Active Not Available [facility] 12:50:52 Diarrhea 17105780 Active Not Available [facility] 12:50:53 Depressive disorder 70721476 Active Not Available [facility] 12:50:52 Anxiety disorder 842250510 Active Not Available [facility] 12:50:52 Generalized abdominal pain 310420703 Active Not Available [facility] 12:50:52 Osteoporosis 16068454 Active Not Available [facility] 12:50:52 Tremor 20771510 Active 2017 Not Available [facility] 12:50:52 Insomnia 200303102 Active 2017 Not Available [facility] 12:50:53 Vitamin D deficiency 58963194 Active Not Available [facility] 12:50:52 Megaloblastic anemia due to vitamin B>12< deficiency 58147618 Active Not Available [facility] 12:50:52 Senile osteoporosis 05450376 Active Not Available [facility] 12:50:52 Heart murmur 37760698 Active Not Available [facility] 12:50:52 Thready pulse 16879097 Active Not Available [facility] 12:50:52 Edema 307161956 Active Not Available [facility] 12:50:52 Morbid obesity 241006442 Active Not Available [facility] 12:50:52 Joint pain 32254771 Active Not Available [facility] 12:50:53 Jaime thyroiditis 42080980 Active Not Available [facility] 12:50:53 Hyperlipidemi a 19349684 Active Not Available [facility] 12:50:53 Body mass index 30+ - obesity 548202863 Active Not Available [facility] 12:50:53 Malaise and fatigue 370857770 Active Not Available [facility] 12:50:52 Synovial cyst of popliteal space Active Not Available [facility] 10/16/202 1 12:50:53 Cough 71313489 Active Not Available [facility] 1 12:50:53 Seizure disorder 933927684 Active 2017 Not Available [facility] 1 12:50:53 Disorder of vitamin B12 304092963 Active 2018 Not Available [facility] 1 12:50:52 Memory impairment 918216421 Active 2020 Not Available [facility] 12:50:53 Fatigue 06241977 Active 2021 SOCORROCRISSY PRATTFRANDY Devries [address] [place] [address], [address] , [address] 2 09:49:59 Polyp of colon 82397155 Active 2021 SOCORRO PRATTJaycob [address], [address] , [address] 2 09:58:37 Abdominal bloating 647444321 Active 2021 SOCORRO PRATTJaycob [employer] [address] [place] [address], [phone] , [address] 2 10:11:09 Incontinence of feces 79860610 Active 2021 SOCORRO PRATTJaycob [address], [address] , [address] 2 10:15:09 Dysphagia 50246257 Active 2021 SOCORRO JAZMINFRANDY Devries [address] [place] [address], [address] , [address] 2 10:15:09 Gastroesophag eal reflux disease without esophagitis 887812255 Active 2022 ANN-MARIE BLANCO MD [address] [place] [address], [phone] , [address] 3 14:26:09 Problem Notes None recorded. Procedures Surgical History Date Name Laterality Status Provider Name and Address Organization Details Recorded Time 11/30/19 20 Colonoscopy completed Allison Gillespie RN [facility] [address] 12/14/2019 16:22:28 05/01/19 15 Orthopaedic Surgery completed Allison Gillespie RN [facility] [address] 04/24/2015 10:57:09 02/25/20 14 Date of Last Pap Smear completed Martha Vaughn RN Clinic Office [address] 04/01/2014 10:44:02 12/23/19 14 Date of Last Mammogram completed Martha Vaughn RN [facility] Office [address] 02/24/2014 11:22:55 08/23/19 12 Colonoscopy completed Anastasiya Yusuf LPN [address] 01/22/2016 09:52:10 Cholecystectomy completed Gloria Jean-Pierre [address] 12/14/2013 14:45:18 Appendectomy completed Gloria Jean-Pierre [address] 12/14/2013 14:45:18 Other completed Gloria Jean-Pierre [address] 12/14/2013 14:45:18 Other completed Gloria Jean-Pierre [address] 12/14/2013 14:50:14 Appendectomy completed Bernardo Danae [address] 01/24/2014 09:07:08 Cholecystectomy completed Bernardo Danae [address] 01/24/2014 09:07:08 Breast Surgery completed Bernardo Danae [address] 01/24/2014 09:07:08 Other completed Bernardo Danae [address] 01/24/2014 09:07:08 Other completed Bernardo Danae [address] 01/24/2014 09:07:08 Tubal Ligation completed Martha Vaughn RN Clinic Office [address] 02/24/2014 11:22:55 Other completed Martha Vaughn RN [facility] [address] 02/24/2014 11:22:55 breast augmentation completed Jayden Tapia RN Clinic Office [address] 02/24/2014 11:22:55 Endometrial Ablation completed Martha Vaughn RN [facility] Office [address] 02/24/2014 11:22:55 Imaging Results Imaging Date Name Status LastModified by [facility] Details LastModified Time 12/25/2021 DEXA, axial skeleton completed [address] - Radiology Scheduling 6[address] [facility], [place], [address], 12/31/2021 15:34:33 Procedure Notes None recorded. Medical Equipment None Reported. Allergies Allergen ID Allergen Name Allergen Category Reaction Reaction Severity Criticality Documentation Date Start Date Code Code System Note Provider Name and Address Organization Details Recorded Time 666234 Ceclor medicatio n Not available Not available Not available 12/14/2013 5 RxNorm Gloria Morejon [address] 4 14:50:14 850193 cefaclor medicatio n myalgias (muscle pain) Not available Not available 01/17/20142175 RxNorm Bernardo Fink [address] 4 09:07:08 999108 Cipro medicatio n Not available Not available Not available 02/24/2014 3 RxNorm Martha Vaughn RN Clinic Office [address] 4 11:22:55 Medications Name Sig Start [...] completed Not Available Not Available Not Available [facility] 04/24 completed Not Available Not Available [...] Available Not Available Not Available Fluzone High-Dose 2613-4115 (PF) 180 mcg/0.5 mL intramuscu lar syringe TO BE ADMINIST ERED BY PHARMACI ST FOR IMMUNIZA TION 08/05 completed Not Available Not Available Not Available Fluzone High-Dose 2234-2691 (PF) 180 mcg/0.5 mL intramuscu lar syringe [...] Updated DateTime 1 162.56 cm 37.8 kg/m2 71224.3 2 g 85 /min 95 % 95 % 132 mm[Hg] 90 mm[Hg] Harika Palafox, Leaf Sucker Operator Cert [address] 1 14:42:04 Date Recorded Body height Body mass index (BMI) Body weight Heart rate Respiratory rate Oxygen saturation Oxygen saturation in Arterial blood by Pulse oximetry Pain severity - 0-10 verbal numeric rating [Score] - Reported Systolic blood pressure Diastolic blood pressure Provider Name and Address Organization Details Last Updated DateTime 2 162.56 cm 41.2 kg/m2 296500. 17 g 88 /min 16 /min 98 % 98 % 0 122 mm[Hg] 85 mm[Hg] Allison Gillespie RN [facility] Office [address] 2 09:43:50 Date Recorded Body weight Heart rate Respiratory rate Oxygen saturation Oxygen saturation in Arterial blood by Pulse oximetry Body mass index (BMI) Body height Pain severity - 0-10 verbal numeric rating [Score] - Reported Systolic blood pressure Diastolic blood pressure Provider Name and Address Organization Details Last Updated DateTime 3 064471. 21 g 87 /min 16 /min 98 % 98 % 40.3 kg/m2 162.56 cm 1 128 mm[Hg] 83 mm[Hg] Allison Gillespie RN Clinic Office [address] 3 14:30:54 Date Recorded Body height [...] 98 % 98 % 0 41.2 kg/m2 808021. 17 g 128 mm[Hg] 83 mm[Hg] Allison Gillespie RN Clinic Office [address] 3 14:07:00 Date Recorded Body height [...] 98 % 98 % 0 42.9 kg/m2 559693. 09 g 122 mm[Hg] 82 mm[Hg] Allison Gillespie RN [facility] Office [address] 4 14:30:54 Social History Question Answer Notes LastModified by Organizat ion Details LastModified Time Tobacco Smoking Status Former Smoker [email or web address] 's Allison Gillespei RN [facility] Office [address] 01/17/2014 15:00:38 What Is Your Level Of Alcohol Consumption? Occasional 4-5 Wine Q Week [email or web address] Information not available 01/17/2014 What Is Your Level Of Caffeine Consumption? Moderate 2 Coffe Qd Information not available 01/17/2014 How Much Tobacco Do You Chew? None Information not available 01/22/2016 What Type Of Diet Are You Following? REGULAR Information not available 01/22/2016 Which Illicit Or Recreational Drugs Have You Used? 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 01/20/2023 [email or web address] Information not available 01/20/2023 Sex: Unknown Functional [...] Y Other Y Headaches or Migraines Y GERD/Reflux Y High Cholesterol Y Colon Polyps Y Abnormal Pap Smear [...] completed Allison Gillespie RN Clinic Office null, [address] 01/10/2020 15:56:06 Influenza, high-dose, trivalent, PF 7 completed Allison Gillespie RN Clinic Office null, [address] 12/01/2019 15:38:31 Influenza, split virus, trivalent, preservative 8 rox Gillespie RN Clinic Office null, [address] 12/01/2019 15:38:31 Influenza, split virus, trivalent, preservative 4 completed Allison Gillespie RN Clinic Office null, [address] 12/01/2019 15:38:31 Influenza, split virus, trivalent, preservative 2 rox Gillespie RN Clinic Office null, [address] 12/01/2019 15:38:31 Pneumococcal conjugate PCV 13 7 rox Gillespie RN Clinic Office null, [address] 12/01/2019 15:38:31 Influenza, split virus, trivalent, preservative 0 rox Gillespie RN Clinic Office null, [address] 12/01/2019 15:38:31 Influenza, split virus, trivalent, preservative 1 rox Gillespie RN Clinic Office null, [address] 12/01/2019 15:38:31 Influenza, split virus, trivalent, preservative 9 completed Allison Gillespie RN Clinic Office null, [address] 12/01/2019 15:38:31 Influenza, high-dose, trivalent, PF 8 completed Harika Palafox Leaf Sucker Operator Cert null, [address] 12/22/2020 14:42:16 pneumococcal polysaccharide PPV23 0 completed Harika Palafox Leaf Sucker Operator Cert null, [address] 12/22/2020 14:42:16 zoster live 3 completed Harika Palafox Leaf Sucker Operator Cert null, [address] 12/22/2020 14:42:16 Influenza, high-dose, trivalent, PF 4 completed Ly Jude, RN null, [address] 03/31/2017 15:28:41 pneumococcal polysaccharide PPV23 0 completed Ly Roque, RN null, [address] 12/22/2017 09:52:35 Influenza, split virus, quadrivalent, preservative 6 completed Ly Roque, RN null, [address] 03/31/2017 15:28:41 pneumococcal polysaccharide PPV23 1 completed Ly Roque, RN null, [address] 03/31/2017 15:28:41 zoster live 3 completed Ly Roque, RN null, [address] 12/22/2017 09:52:36 Influenza, high-dose, trivalent, PF 5 completed Ly Roque, RN null, [address] 12/22/2017 09:52:35 Influenza, high-dose, trivalent, PF 4 completed Harika Palafox Leaf Sucker Operator Cert null, [address] 12/22/2020 14:42:16 Influenza, split virus, quadrivalent, preservative 7 completed Ly Roque, RN null, [address] 12/22/2017 09:52:35 Past Encounters Encounter ID Performer Location Encounter Start Date Encounter Closed Date Diagnosis/Indication Diagnosis SNOMED-CT Code Diagnosis ICD10 Code Diagnosis Note [id number] Gloria Morejon [facility] [address] [place] [address] 12/28/2013 11:02:14 12/28/2013 14:06:46 Dyspnea on exertion 06243862 because of her symptoms and her previous EKG having nonspecifi c ST-T changes (abnormal ekg), a stress test will be ordered. She has significan t osteoarthr itis of the knees and back pain and cannot do the treadmill. Because of this an adenosine stress test will be ordered. I suspect that she is also deconditio isela as well. Chronic back pain 812698019 she will followup with pain management . I explained that control of her back pain will be an essential part of her weight reduction program. We need to have her working with a technology trainer in order to help her lose weight. A referral to a technology trainer was given. Essential hypertension 92536055 her blood pressures have been stable. She will work on weight reduction program. Blood pressure goals were given. Hypercholesterolemia 64379967 her lipid profile goals were discussed. Her lipid profile will be rechecked. She will work on the above weight reduction program. Hyperglycemia 91174922 h er A1c will be rechecked. Ophthalmol ogy followup and proper foot care will be emphasized . Fatigue 93904188 the abo ve stress test will be ordered. A reconditio chuck program will be needed. Her labs will also include a CBC, CMP, TSH and B12 level. Vitamin D deficiency 05836133 her level will be checked to make sure that she is above 40 Megaloblas tic anemia due to vitamin B>12< deficiency 20959241 her level will be checked to make sure that she is above 092 [id number] [facility] 42 GI [address] [place] [address] 01/17/2014 13:59:07 01/17/2014 15:38:32 Gastroesophageal reflux disease 068605446 Restarting Omeprazole 40 mg p.o. q. a.m. Also instructed patient on GERD lifestyle modificati ons. Pending response may require EGD to rule out GERD complicati ons. Patient understand s and agrees. Epigastric pain 21605101 Likely secondary to GERD however cannot rule out possible component of functional dyspepsia. Await response to restart of Omeprazole . Also instructed patient on GERD lifestyle modificati ons. As above, pending response may require EGD to rule out GERD complicati ons. Patient understand s and agrees. Obesity 280407433 S/p ~1 5 lb wt gain in [...] sx. Patient understand s and agrees. Diarrhea 62690522 Etiolo gy uncertain. Should rule out infectious [...] lab results. History of polyp of colon 184913708 Pt s/p colonoscop y sig for TA in 2011. Risks of missed polyps explained to pt. For repeat colonoscop y in 2017. Pt underastan ds and agrees. [id number] Nina Martinez [email or web address] [address] [facility] [address] [place] [address] 02/24/2014 10:59:58 02/24/2014 11:44:28 Screening for malignant neoplasm of cervix 360614069 Anxiety disorder 542838937 Depressive disorder 32073391 [id number] DIEGO LAY MD [email or web address] [address] [facility] [address] [place] [address] 04/01/2014 10:37:51 04/01/2014 11:20:38 Depressive disorder 76471534 Anxiety disorder 226932808 [id number] Gregoria He [facility] NEUR[address] [place] [address] 04/11/2014 10:59:53 04/11/2014 11:44:59 Migraine 41587448 Essential hypertension 65977639 Fatigue 98773374 Depressive disorder 18171711 Anxiety disorder 889649056 [id number] DIEGO LAY MD [email or web address] [address] [facility] [address] [place] [address] 04/22/2014 10:20:42 04/22/2014 10:41:58 Depressive disorder 15535286 Anxiety disorder 818916697 Hypercholesterolemia 47610616 [id number] ANN-MARIE BLANCO MD [facility] GI [address] [place] [address] 11/14/2014 10:29:49 11/14/2014 11:48:46 Diarrhea 89389730 Advised patient that likely multifacto rial in [...] IBS-D. Patient understand s and agrees. Obesity 863958233 Patien t advised again on decreasing food portion sizes as well as increasing exercise by walking or working out in a pool if necessary. Again advised of possible benefit from participat ing in Weight Watchers or similar support group. Will continue to monitor weight loss at follow up visits. Patient understand s and agrees. Gastroesop hageal reflux disease 661853090 Well-contr olled with current PPI regimen. To continue the same in addition to continuing lifestyle changes. Patient to inform office if symptoms recur. Patient understand s and agrees. History of polyp of colon 512646387 Pt s/p colonoscop y sig for TA in 2011. Risks of missed polyps explained to pt. For repeat colonoscop y in 2016. Pt underastan ds and agrees. Generalize d abdominal pain 279789103 Etiology uncertain. S/p EGD & colonoscop y in 2011. Also advised pt to keep a food journal if symptoms recur. If symptoms recur to call office for possible evaluation w/ repeat EGD and colonoscop y. Pt understand s and agrees. [id number] ANN-MARIE BLANCO MD [facility] [address] GI [address] [place] [address] 04/24/2015 10:33:30 04/24/2015 11:48:16 Obesity 192261170 E66.9 Advised patient on decreasing food portion sizes. Advised patient that a food portion is ~ the size of the palm of her hand and ~2 inches high. Also encouraged patient to increase exercise by walking or working out in a pool if necessary. Will continue to monitor weight at follow up visits. Patient understand s and agrees. Epigastric pain 44468364 R10.13 Likely secondary to GERD however cannot rule out possible component of functional dyspepsia. Starting trial of PPI p.o. q. a.m. Also instructed patient on GERD lifestyle modificati ons. Pending response may require EGD to rule out GERD complicati ons. Patient understand s and agrees. Gastroesop hageal reflux disease 277862720 K21.9 S/p increasing dose of current PPI to BID without adequate response. Will change to different PPI. If no improvemen t may require EGD. Generalize d abdominal pain 915767921 R10.84 Resolved. To treat obesity as above. Also advised pt to keep a food journal if symptoms recur. If symptoms recur to call office for possible evaluation w/ imaging studies. Pt understand s and agrees. Diarrhea 35554583 R19.7 Much improved. Likely multifacto rial in [...] and agrees. History of polyp of colon 139690770 Z86.010 Pt s/p colonoscop y sig for TA in 2011. Risks of missed polyps explained to pt. For repeat colonoscop y in 2017. Pt underastan ds and agrees. Osteoporosis 41568197 M8 1.0 Due to risk of osteoporos is and patient's need for long-term PPI therapy, suggest bone density study to rule out osteopenia /osteoporo sis. Patient advised to continue Calcium + Vitamin D BID. Last BDS in 2013. Will schedule for bone density study with further recommenda tions pending results. [id number] BRAN GRAHAM MD [facility] [address] [place] [address] 07/07/2015 10:40:08 07/07/2015 11:24:01 Migraine 99503655 G43.909 Depressive disorder 3548 9007 F32.9 Anxiety disorder 9400175 06 F41.9 Essential hypertension 71254389 I10 Intracrani al meningioma 666205247 D32.0 Tremor 29026875 R25.1 [id number] BRAN GRAHAM MD [facility] [address] [place] [address] 11/30/2015 10:04:34 11/30/2015 10:38:32 Osteoporosis 24887024 M81.0 Generalize d abdominal pain 788473919 R10.84 Depressive disorder 3548 9007 F32.9 Anxiety disorder 9267200 06 F41.9 Migraine 91537126 G43.90 9 Intracrani al meningioma 178678061 D32.0 [id number] ANN-MARIE BLANCO MD [facility] [address] GI [address] [place] [address] 01/22/2016 09:27:38 01/22/2016 11:11:48 Gastroesophageal reflux disease 620409965 K21.9 Well controlled with Nexium 40 mg qd 30 min before meals. To cont the same. To continue the same in addition to continuing lifestyle changes. Patient to inform office if symptoms recur. Patient understand s and agrees. Obesity 669436956 E66.9 BMI: 37.6 Prior visit pt at BMI 39.2 in 228.2 lbs. Pt has lost ~10 lbs since last visit. To cont on decreasing food portion sizes and exercising in pool and golfing. Spoke to pt about weight loss sx with Dr. Echevarria. Will continue to monitor weight at follow up visits. Patient understand s and agrees. Epigastric pain 67290367 R10.13 Resolved. To cont as above. Patient understand s and agrees. Diarrhea 11445063 R19.7 No improvemen t - see HPI. [...] response. Pt understand s and agrees. Osteoporosis 78300373 M8 1.0 Last visit, we ordered a BDS - do not see results. To cont calcium and vit-D supplement . Will check records further / reorder study. Pt understand s and agrees. Nausea 795272339 R11.0 Occasional symptoms. ? Secondary to PUD [...] and agrees. History of polyp of colon 038733508 Z86.010 Pt s/p colonoscop y sig for TA in 2011. Risks of missed polyps explained to pt. For repeat colonoscop y in 2017. Pt understand s and agrees. [id number] ANN-MARIE BLANCO MD [facility] [address] GI [address] [place] [address] 07/15/2016 09:54:00 07/15/2016 11:23:56 Gastroesophageal reflux disease 391784031 K21.9 Well controlled with Nexium 40 mg qd 30 min before meals however due to possible diarrhea as s/e will d/c and start a trial of Dexilant 60 mg qAM.Furthe r recommenda tions pending response to therapy as well as colonoscop y and lab results +/- EGD is TTG positive Abdominal pain 03466424 R10.9 Likely multifacto rial in origin with a component secondary to patient's diarrhea.? Lactose intoleranc e.Await response to new dietary regimen including avoidance of coffee and lactose.Al so await colonoscop y results. Further recommenda tions to follow.May require initiation of antispasmo dic. Abdominal bloating 24147 9227 R14.0 Symptoms still persist despite attempts to [...] . Pt understand s and agrees. Diarrhea 61180844 R19.7 No improvemen t - see HPI. [...] & results.Pt understand s and agrees. Obesity 662663382 E66.9 Patient admits to a very sedentary [...] agrees. Screening for malignant neoplasm of colon 466931846 Z12.11 S/p colonoscop y in 2011 significan t for TA..Will schedule for a screening/ surveillan ce colonoscop y with future recommenda tions pending results. Risks of missed polyps, bleeding, pain & perforatio n explained to the pt. Pt understand s and agrees. History of polyp of colon 688432292 Z86.010 Pt s/p colonoscop y sig for TA in 2011. Risks of missed polyps explained to pt.For repeat colonoscop y now.Pt understand s and agrees. [id number] ANN-MARIE BLANCO MD [facility] [address] [facility] [address] [place] [address] 11/15/2016 11:43:37 11/15/2016 14:03:40 Diarrhea 09474018 R19.7 Improved following dietary changes.Diane booth multifacto [...] understand s and agrees. Polyp of colon 43874292 K63.5 Pt s/p colonoscop y 07/2016 sig for TA. Risks of missed polyps explained to pt. For repeat colonoscop y in ~07/2021. Pt understand s and agrees. Gastroesop hageal reflux disease 204066589 K21.9 Assoc w/ wine & [place] food ingestion despite Omeprazole 40 mg qD.To cont PPI- BID.To call if breakthrou gh symptoms continue/w orsen. Nausea 323779496 R11.0 Resolved. ? Secondary to PUD vs GERD vs dietary indiscreti ons vs gastropare sis. To continue PPI therapy. To call office if symptoms recur. In addition if symptoms recur will consider requesting thyroid studies and celiac panel to rule out concomitan t illnesses. Abdominal pain 53266572 R10.9 Resolved. Etiology uncertain. Also advised pt to keep a food journal if symptoms recur. If symptoms recur to call office for possible evaluation w/ imaging studies. Pt understand s and agrees. Obesity 430609003 E66.9 Patient admits to a very sedentary lifestyle as well as depression which decreases her activity.P t requesting informatio n about the gastric sleeve option.Dis cussed at length with pt.Referri ng to Dr. Echevarria. [id number] BRAN GRAHAM MD [facility] [address] [facility] [place] [address] 03/31/2017 14:55:45 03/31/2017 16:19:02 Osteoporosis 80173757 M81.0 Generalize d abdominal pain 340709103 R10.84 Depressive disorder 3548 9007 F32.9 Anxiety disorder 9510410 06 F41.9 Migraine 90073556 G43.90 9 Intracrani al meningioma 126537768 D32.0 Tremor 04669317 R25.1 Obesity 414136482 E66.9 Insomnia 853426499 G47.0 0 [id number] BRAN GRAHAM MD [facility] [address] [place] [address] 12/22/2017 09:36:44 12/22/2017 10:11:18 Osteoporosis 25165520 M81.0 Generalize d abdominal pain 841497866 R10.84 Depressive disorder 3548 9007 F32.9 Anxiety disorder 1382401 06 F41.9 Migraine 40286099 G43.90 9 Intracrani al meningioma 351283712 D32.0 Tremor 96249647 R25.1 Obesity 041485760 E66.9 Insomnia 501399419 G47.0 0 [id number] BRAN GRAHAM MD [facility] [address] [place] [address] 01/23/2018 08:44:25 01/23/2018 09:33:38 Osteoporosis 80633840 M81.0 Generalize d abdominal pain 119660487 R10.84 Depressive disorder 3548 9007 F32.9 Anxiety disorder 1492395 06 F41.9 Migraine 56900617 G43.90 9 Intracrani al meningioma 577291669 D32.0 Tremor 61564690 R25.1 Obesity 973148491 E66.9 Insomnia 593950830 G47.0 0 Seizure disorder 5252423 02 G40.500 [id number] Mag Hanna NP [facility] [address] [place] [address] 03/10/2018 14:22:03 03/10/2018 15:16:03 Abdominal pain 14434570 R10.9 Will check CBC and CT and [...] of the abdomen, bleeding per rectum. Diarrhea 98608487 R19.7 [id number] BRAN GRAHAM MD [facility] [address] [place] [address] 03/11/2018 12:54:27 03/11/2018 13:54:24 Osteoporosis 17475744 M81.0 Anxiety disorder 0961131 06 F41.9 Seizure disorder 4398340 02 G40.909 Generalize d abdominal pain 465975553 R10.84 Depressive disorder 3548 9007 F32.9 Tremor 52890024 R25.1 Migraine 22779434 G43.90 9 Intracrani al meningioma 117934179 D32.0 Obesity 139461547 E66.9 Insomnia 770028082 G47.0 0 [id number] BRAN GRAHAM MD [facility] [address] [place] [address] 04/01/2018 09:55:40 04/01/2018 10:25:46 Osteoporosis 82053892 M81.0 Anxiety disorder 0803097 06 F41.9 Seizure disorder 8696014 02 G40.909 Generalize d abdominal pain 960538797 R10.84 Depressive disorder 3548 9007 F32.9 Tremor 75121485 R25.1 Migraine 59445218 G43.90 9 Intracrani al meningioma 299622928 D32.0 Obesity 628709957 E66.9 Insomnia 353887531 G47.0 0 [id number] ANN-MARIE BLANCO MD [facility] [address] [place] [address] 06/22/2018 15:32:39 06/24/2018 10:42:07 Diarrhea 19783979 R19.7 Watery, explosive, w/ urgency, x~2-3 weeks, [...] well as lab results. Polyp of colon 71797856 K63.5 Pt s/p colonoscop y 07/2016 sig for TA. Risks of missed polyps explained to pt. For repeat colonoscop y in ~07/2021 or sooner PRN. Pt understand s and agrees. Gastroesop hageal reflux disease 071708114 K21.9 Well-contr olled with Nexium 40 mg qAM. To continue the same in addition to continuing lifestyle changes. Patient to inform office if symptoms recur. Patient understand s and agrees. Obesity 197081127 E66.9 BMI = 41, up from 38.6.Pt reports +++ stress over the past year.Patie nt advised again on decreasing food portion sizes as well as increasing exercise by walking or working out in a pool if necessary due to arthritis. Will continue to monitor weight loss at follow up visits. Patient understand s and agrees. Abdominal bloating 39038 9008 R14.0 Symptoms still persist despite attempts [...] . Pt understand s and agrees. Osteoporosis 96621178 M8 1.0 Last BDS was in 2016. [...] study with further recommenda tions pending results. [id number] BRAN GRAHAM MD [facility] [address] [place] [address] 07/23/2018 14:54:08 07/23/2018 15:25:51 Intracranial meningioma 734917590 D32.0 Seizure disorder 1249277 02 G40.909 Anxiety disorder 0737913 06 F41.9 Depressive disorder 3548 9007 F32.9 Tremor 35622750 R25.1 Migraine 52727273 G43.90 9 Obesity 463378563 E66.9 Disorder o f vitamin B12 295450976 E53.8 [id number] BRAN GRAHAM MD [facility] [address] [place] [address] 05/13/2019 09:44:20 05/13/2019 10:24:58 Intracranial meningioma 115366814 D32.0 Depressive disorder 3548 9007 F32.9 Seizure disorder 5142798 02 G40.909 Disorder o f vitamin B12 802546244 E53.8 Anxiety disorder 6884338 06 F41.9 Tremor 86284942 R25.1 Migraine 12566035 G43.90 9 Obesity 775032207 E66.9 [id number] BRAN GRAHAM MD [facility] [address] [place] [address] 09/01/2019 11:23:50 09/01/2019 12:35:29 Intracranial meningioma 379531746 D32.0 Depressive disorder 3548 9007 F32.9 Disorder o f vitamin B12 049342668 E53.8 Seizure disorder 7261724 02 G40.909 Anxiety disorder 0221844 06 F41.9 Tremor 05261457 R25.1 Migraine 53446664 G43.90 9 Obesity 062571641 E66.9 [id number] BRAN GRAHAM MD [facility] [address] [place] [address] 11/11/2019 12:57:58 11/11/2019 14:50:24 Tremor 50824509 R25.1 Intracrani al meningioma 776984866 D32.0 Depressive disorder 3548 9007 F32.9 Seizure disorder 5284796 02 G40.909 Anxiety disorder 3981394 06 F41.9 Migraine 66932073 G43.90 9 Obesity 183740549 E66.9 [id number] ANN-MARIE BLANCO MD [facility] [address] [place] [address] 11/22/2019 10:54:04 11/22/2019 12:19:21 Diarrhea 71269385 R19.7 ~1-3 loose stools daily, +/- fecal [...] literature given previously . Polyp of colon 58169744 K63.5 Pt s/p colonoscop y 07/2016 sig for TA. Risks of missed polyps explained to pt. For repeat colonoscop y in ~07/2021 or sooner PRN. Pt understand s and agrees. Gastroesop hageal reflux disease 633247473 K21.9 Well-contr olled with Omeprazole 40 mg qAM. To continue the same in addition to continuing lifestyle changes. Patient to inform office if symptoms recur. Patient understand s and agrees. Obesity 493378013 E66.9 BMI = 42.9, up from 41, up from 38.6. ~250 lbsPt reports +++ stress over the past year.Patie nt advised again on decreasing food portion sizes as well as increasing exercise by walking or working out in a pool if necessary due to arthritis. Will continue to monitor weight loss at follow up visits. Patient understand s and agrees. Abdominal bloating 20801 9001 R14.0 Symptoms still persist despite attempts to [...] . Pt understand s and agrees. Osteoporosis 67576651 M8 1.0 Last BDS was in 2016. [...] tions pending results. Incontinence of feces 72 679303 R15.9 Etiology likely multifacto rial in origin [...] possible biofeedbac k training. Pre-surgery testing 1104 97153 Z01.89 For COVID testing prior to any outpt GI procedure. Dysphagia 76773166 R13.1 0 Likely secondary to patient's GERD. To continue Omeprazole 40 mg po qAM. Also scheduling for EGD to rule out GERD complicati ons as well as EoE. If patient does not respond to the PPI trial, may also require esophagram to rule out motility disorder. [id number] ANN-MARIE BLANCO MD [facility] [address] [place] [address] 01/10/2020 15:52:14 01/10/2020 16:48:46 Diarrhea 22323636 R19.7 Currently having ~1-2 semi formed BM [...] literature given previously . Polyp of colon 10645262 K63.5 S/p repeat colon 12/01/2019- Neg for colitis, + for a polyp in the rectosigmo id colon.Risk s of missed polyps explained to pt. For repeat colonoscop y in ~5 years or sooner PRN. Pt understand s and agrees. Pt s/p colonoscop y 07/2016 sig for TA. Gastroesop hageal reflux disease 104499143 K21.9 S/p EGD 12/01/2019- Sig for gastritis. Well-contr olled with Omeprazole 40 mg qAM. To continue the same in addition to continuing lifestyle changes. Patient to inform office if symptoms recur. Patient understand s and agrees. Obesity 710543641 E66.9 2' to leg brace, pt not [...] Patient understand s and agrees. Abdominal bloating 80481 1065 R14.0 Much improved. Likely multifacto rial in [...] previously ) understand s and agrees. Osteoporosis 32479785 M8 1.0 Last BDS was in 2016. [...] tions pending results. Incontinence of feces 72 874026 R15.9 Secondary to watery / loose stools as since her symptoms resolved following an increase in fiber in her diet and increasing the bulk of her stool. Advised patient to continue her high fiber diets. Also advised patient to perform anal sphincter strengthen ing exercises several times daily and as needed. Fiber literature given previously . To call office if episodes recur. Dysphagia 82851253 R13.1 0 Resolved. Likely secondary to patient's GERD. To continue Omeprazole 40 mg po qAM. Also scheduling for EGD to rule out GERD complicati ons as well as EoE. If patient does not respond to the PPI trial, may also require esophagram to rule out motility disorder. Fatigue 34873100 R53.83 ? 2' to changed to Dr. Ori Cancino. Requesting copies of lab work. To f/u w/ Dr. Cancino as well. [id number] BRAN GRAHAM MD [facility] [address] [place] [address] 05/12/2020 13:45:36 05/12/2020 14:33:39 Tremor 47037928 R25.1 Intracrani al meningioma 702815856 D32.0 Depressive disorder 3548 9007 F32.9 Seizure disorder 8696812 02 G40.909 Anxiety disorder 2633276 06 F41.9 Migraine 13187984 G43.90 9 Obesity 885400519 E66.9 Memory impairment 758043 006 R41.3 [id number] BRAN GRAHAM MD [facility] [address] [place] [address] 12/22/2020 14:34:50 12/22/2020 15:09:13 Memory impairment 526503438 R41.3 Tremor 96904818 R25.1 Seizure disorder 4108710 02 G40.909 Intracrani al meningioma 462132569 D32.0 Depressive disorder 3548 9007 F32.9 Anxiety disorder 3372985 06 F41.9 Migraine 30405268 G43.90 9 Obesity 630568370 E66.9 [id number] SOCORRO WU APRN [facility] [address] [facility] [place] [address] 11/19/2021 09:28:15 11/19/2021 10:06:14 Diarrhea 70185514 R19.7 Improved. Currently having 2-3 formed BM daily w/ Metamucil. 1-2 loose stool episodes a month now. Any loose episodes are assoc w/ dietary indiscreti ons.Advise d patient on increasing dietary fiber as well as avoiding lactose.Fi harika literature given previously . S/p EGD & colonoscop y 11/2019- S/p Neg random bx'sOther w/u including TFT, negative to date. Polyp of colon 61682447 K63.5 S/p repeat colon 12/01/2019- Neg for colitis, + for a polyp in the rectosigmo id colon. Risks of missed polyps explained to pt. For repeat colonoscop y in ~5 years or sooner PRN. Pt understand s and agrees. Pt s/p colonoscop y 07/2016 sig for TA. Gastroesop hageal reflux disease 581518892 K21.9 S/p EGD 12/01/2019- Sig for gastritis. Well-contr olled with Pantoprazo le 40mg qAM. Previously on Omeprazole 40 qAM. To continue the same in addition to continuing lifestyle changes. Patient to inform office if symptoms recur. Patient understand s and agrees. Obesity 583348881 E66.9 BMI = 41.2 no change in weight since last visitPatie nt advised again on decreasing food portion sizes as well as increasing exercise by walking or working out in a pool if necessary due to arthritis. Will continue to monitor weight loss at follow up visits.Emilie caraballo understand s and agrees. Abdominal bloating 58940 9008 R14.0 Much improved. 1-2 episodes a [...] previously ) understand s and agrees. Osteoporosis 08937128 M8 5.88 Last BDS was in 2015. Due to risk of osteoporos is and patient's need for long-term PPI therapy, suggest bone density study to rule out osteopenia /osteoporo sis. Will schedule for bone density study with further recommenda tions pending results. Patient advised to continue Calcium + Vitamin D BID. Incontinence of feces 72 756725 R15.9 Secondary to watery / loose stools [...] To call office if episodes recur. Dysphagia 06226902 R13.1 0 Resolved. Likely secondary to patient's GERD. To continue Pantoprazo le 40 mg po qAM. If symptoms return or worsen may also require esophagram to rule out motility disorder. [id number] SOCORRO WU APRN [facility] [address] [place] [address] 11/29/2022 13:55:48 11/29/2022 14:42:52 Diarrhea 01824090 R19.7 Improved. Currently having 2-3 formed BM daily w/ Metamucil. 1-2 loose stool episodes a month now. Any loose episodes are assoc w/ dietary indiscreti ons.Advise d patient on increasing dietary fiber as well as avoiding lactose.Fi harika literature given previously . S/p EGD & colonoscop y 11/2019- S/p Neg random bx'sOther w/u including TFT, negative to date. Polyp of colon 08948329 K63.5 S/p repeat colon 12/01/2019- Neg for colitis, + for a polyp in the rectosigmo id colon. Risks of missed polyps explained to pt. For repeat colonoscop y in ~5 years or sooner PRN. Pt understand s and agrees. Pt s/p colonoscop y 07/2016 sig for TA. Gastroesop hageal reflux disease 501604494 K21.9 S/p EGD 12/01/2019- Sig for gastritis. Well-contr olled with Pantoprazo le 40mg qAM. Previously on Omeprazole 40 qAM. To continue the same in addition to continuing lifestyle changes. Patient to inform office if symptoms recur. Patient understand s and agrees. Obesity 048628751 E66.9 Patient advised again on decreasing food portion sizes as well as increasing exercise by walking or working out in a pool if necessary due to arthritis. Will continue to monitor weight loss at follow up visits.Pat ietim understand s and agrees. Abdominal bloating 99977 9008 R14.0 Much improved. 1-2 episodes a [...] previously ) understand s and agrees. Osteoporosis 76841132 M8 5.88 BDS 2021 sig for osteopenic changesDue to risk of osteoporos is and patient's need for long-term PPI therapy, suggest bone density study to rule out osteopenia /osteoporo sis. Will schedule for bone density study with further recommenda tions pending results. Patient advised to continue Calcium + Vitamin D BID. Incontinence of feces 72 731225 R15.9 Secondary to watery / loose stools [...] To call office if episodes recur. Dysphagia 15405512 R13.1 0 Resolved. Likely secondary to patient's GERD. To continue Pantoprazo le 40 mg po qAM. If symptoms return or worsen may also require esophagram to rule out motility disorder. [id number] ANN-MARIE BLANCO MD [facility] [address] [place] [address] 01/20/2023 13:51:03 01/20/2023 14:47:42 Gastroesophageal reflux disease without esophagitis 745641206 K21.9 + Breakthrou gh symptoms despite Protonix qAM. Improved w/ Pepcid PRN.To take the Pepcid qHS, not PRN.To continue the same in addition to continuing lifestyle changes.Santy frost to inform office if symptoms recur.Alina ent understand s and agrees. Previously on Omeprazole 40 qAM. Diarrhea 23474888 R19.7 Well controlled w/ Metamucil + protein shake qAM. Having 1-2 soft stools daily.Any loose episodes are assoc w/ dietary indiscreti ons.Advise d patient on increasing dietary fiber as well as avoiding lactose.Fi harika literature given previously . S/p EGD & colonoscop y 11/2019- S/p Neg random bx'sOther w/u including TFT, negative to date. Polyp of colon 66782342 K63.5 S/p repeat colon 12/01/2019- Neg for colitis, + for a polyp in the rectosigmo id colon. Risks of missed polyps explained to pt. For repeat colonoscop y in ~5 years or sooner PRN. Pt understand s and agrees. Pt s/p colonoscop y 07/2016 sig for TA. Obesity 350970966 E66.9 BMI= 41.2, ~240 lbs. S/p ~5 lb wt gain since her last visit.Alina ent advised again on decreasing food portion sizes as well as increasing exercise by walking or working out in a pool if necessary due to arthritis. Will continue to monitor weight loss at follow up visits.Emilie caraballo understand s and agrees. Osteoporosis 42017961 M8 5.88 BDS 2021 sig for osteopenic changesDue to risk of osteoporos is and patient's need for long-term PPI therapy, suggest bone density study to rule out osteopenia /osteoporo sis. Will schedule for bone density study with further recommenda tions pending results. Patient advised to continue Calcium + Vitamin D BID. Incontinence of feces 72 469529 R15.9 Resolved. Advised patient to continue her high fiber diets. Also advised patient to perform anal sphincter strengthen ing exercises several times daily and as needed. Fiber literature given previously . To call office if episodes recur. [id number] ANN-MARIE BLANCO MD [facility] [address] [place] [address] 06/09/2023 13:22:19 06/09/2023 15:08:44 Gastroesophageal reflux disease without esophagitis 054794274 K21.9 Well controlled w/ Protonix 40 mg qAM & Pepcid 40 mg qHS PRN (usually 1-2/wk)To cont the same in addition to continuing lifestyle changes.Santy frost to inform office if symptoms recur.Alina ent understand s and agrees. Previously on Omeprazole 40 qAM & Protonix qAM only. Diarrhea 13899997 R19.7 Well controlled w/ Metamucil + protein shake qAM. Having 1-2 soft stools daily.Any loose episodes are assoc w/ dietary indiscreti ons.Advise d patient on increasing dietary fiber as well as avoiding lactose.Fi harika literature given previously . S/p EGD & colonoscop y 11/2019- S/p Neg random bx'sOther w/u including TFT, negative to date. Polyp of colon 11682845 K63.5 S/p repeat colon 12/01/2019- Neg for colitis, + for a polyp in the rectosigmo id colon. Risks of missed polyps explained to pt. For repeat colonoscop y in ~5 years or sooner PRN. Pt understand s and agrees. Pt s/p colonoscop y 07/2016 sig for TA. Obesity 750041404 E66.9 BMI= 41.2, ~240 lbs. S/p ~5 lb wt gain since her last visit.Alina wild advised again on decreasing food portion sizes as well as increasing exercise by walking or working out in a pool if necessary due to arthritis. Will continue to monitor weight loss at follow up visits.Emilie caraballo understand s and agrees. Osteoporosis 30260163 M8 5.88 BDS 12/25/2021 sig for osteopenic changesDue to risk of osteoporos is and patient's need for long-term PPI therapy, suggest bone density study to rule out osteopenia /osteoporo sis. Will schedule for bone density study with further recommenda tions pending results. Patient advised to continue Calcium + Vitamin D BID. Incontinence of feces 72 602248 R15.9 S/p recurrence ~2/month.T o keep a food journalTo increase her Metamucil to BID.Advise d patient to continue her high fiber diets. Also advised patient to perform anal sphincter strengthen ing exercises several times daily and as needed. Fiber literature given previously . To call office if episodes recur. Dysphagia 75732554 R13.1 0 Resolved. Likely secondary to patient's [...] 12/22/2020 1 [place] Silvana F Payam [id number] Silvana F Payam 12/22/2020 2 [employer] OPTION - PLAN F (MEDICARE SUPPLEMENT) Silvana F Jain Payam [id number] Silvana F Payam 11/19/2021 1 [place] Silvana F Payam [id number] Silvana F Payam 11/19/2021 2 [employer] OPTION - PLAN F (MEDICARE SUPPLEMENT) Silvana F Jain Payam [id number] Silvana F Payam 11/29/2022 1 [place] Silvana F Payam [id number] Silvana F Payam 11/29/2022 2 [employer] OPTION - PLAN F (MEDICARE SUPPLEMENT) Silvana F Jain Payam [id number] Silvana F Payam 01/20/2023 1 [place] Silvana F Payam [id number] Silvana F Payam 01/20/2023 2 [employer] OPTION - PLAN F (MEDICARE SUPPLEMENT) Silvana F Jain Payam [id number] Silvana F Payam 06/09/2023 1 [place] Silvana F Payam [id number] Silvana F Payam 06/09/2023 2 [employer] OPTION - PLAN F (MEDICARE SUPPLEMENT) Silvana Jackson [id number] Silvana Jackson Notes Date Note Type Note [...] of multiple GI complaints. SOCORRO WU APRN [address] [place], [address], [facility] [place] [facility] [place] 11/19/2021 11:00:50 11/29/2022 text/html DysphagiaReporte d bypatient.Location:thro [...] f/u of multiple GI complaints. SOCORRO WU, [employer] [address] [place], [address], [facility] [place] [facility] [place] 11/29/2022 15:51:57 01/20/2023 text/html DysphagiaReporte d bypatient.Location:thro [...] of multiple GI complaints. ANN-MARIE BLANCO MD [facility] [place], [address], [facility] [place] [facility] [place] 02/07/2023 16:58:22 06/09/2023 text/html DysphagiaReporte d bypatient.Location:thro [...] of multiple GI complaints. ANN-MARIE BLANCO MD [address] [place], [address], [facility] [place] [facility] [place] 07/24/2023 13:47:18 OBGyn Episode No OBEpisode recorded.
--- OUTSIDE RECORDS SUMMARY | 2024-07-13 03:45 | XMS_ITS | Data Portability ---
Author Organization [facility] Address [address] [place] [id number] Care Team Providers Care Material Dispatcher Name Role Phone DEBI MATOS Primary Care Provider DEBI MATOS Referring Provider [phone] DEBI MATOS Primary Care Provider Assessment No assessment recorded. Plan of Treatment Reminders Order Date Submit Date Provider Last Modified By Organization Details Last Modified Time Details Appointments None recorded. Lab None recorded. Referral pulmonologi st referral 2023 024 ANTHONY Greco MD, [address], [address], [place], [address], 4 15:10:39 Procedures None recorded. Surgeries None recorded. Imaging electrocard iogram 2023 024 In-House Results, For Internal Use Only, Do Not Delete/merge, [id number] 10:41:32 PET, heart 2023 024 gayle Wallace MD ([facility]), [address], [address], [place], [address], 4 10:09:08 electrocard iogram 2023 024 In-House Results, For Internal Use Only, Do Not Delete/merge, [id number] 4 20:40:15 US, echocardiog florian, transthorac ic, complete, w/ color flow 2022 023 [facility], [address] [place] [address] , [place], [address], 09:37:29 event monitor - 48 hour holter 2022 023 [facility], RAY, [address], [address], [place], [address], 09:37:11 US, duplex, carotid artery 2022 023 [facility], [address] [place] [address] , [place], [address], 09:36:51 Medication Orders losartan 25 mg tablet 2023 024 ANTHONY [id number] [place], [address], [place], [address], 10:41:34 Patient TargetsNo targets recorded. Patient Instructions Encounter Date Encounter Id Patient Instructions Last Modified By Organization Details Last Modified Time 08/28/2022 [id number] When You Want to Lose Weight: Care Instructions Not available 08/28/2022 13:37:59 dehydration: car e instructions Not available 08/28/2022 13:38:00 10/30/2022 [id number] When You Want to Lose Weight: Care Instructions Not available 10/30/2022 13:34:47 dehydration: car e instructions Not available 10/30/2022 13:34:47 06/12/2023 [id number] fainting: care instructions Not available 06/12/2023 20:40:15 When You Want to Lose Weight: Care Instructions Not available 06/12/2023 20:40:15 dehydration: car e instructions Not available 06/12/2023 20:40:15 07/28/2023 [id number] When You Want to Lose Weight: Care Instructions Not available 07/28/2023 10:41:32 high cholesterol : care instructions Not available 07/28/2023 10:41:32 fainting: care instructions Not available 07/28/2023 10:41:32 dehydration: car e instructions Not available 07/28/2023 10:41:32 10/30/2023 [id number] When You Want to Lose Weight: Care Instructions jt Not available 10/30/2023 13:24:03 high cholesterol : care instructions jt Not available 10/30/2023 13:24:03 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 [facility], [address], [place], [address], 09/15/2022 14:23:32 10/24/19 23 08/16/2022 XR, chest , 1 view No observ ation record ed. Not Available 2022 15:49:28 10/24/19 23 08/16/2022 CT, head, w/o contr ast No observ ation record ed. [email or web address] Not Available 2022 15:50:38 10/29/19 23 10/28/2022 US, echoc ardio gram, trans thora cic, compl ete, w/ color flow No observ ation record ed. Radiology [address] Sonya [place]end[place], [place], [address], 10/29/2022 07:53:37 10/30/1910/28/2022 US, doni araujo id arter y No observ ation record ed. Radiology [address] [place]a [place], [place], [address], 11/01/2022 12:15:47 06/11/19 24 04/29/2023 US, echoc [...] For Internal Use Only, Do Not Delete/merge, [id number] 06/12/2023 12:19:51 06/12/19 elect rocar diogr am No observ ation record ed. Not Available 2023 12:24:06 07/10/19 24 07/08/2023 PET, heart No observ ation record ed. Charly Wallace MD ([facility]) [address], [place], [address], 07/27/2023 13:20:25 07/25/19 24 07/18/2023 , echo ardio gram No observ ation record ed. Not Available 2023 14:36:09 07/25/19 24 07/16/2023 elect rocar diogr am No observ ation record ed. Not Available 2023 14:38:21 07/28/19 24 elect rocar diogr am No observ ation record ed. In-House Results For Internal Use Only, Do Not Delete/merge, [id number] 07/28/2023 10:35:22 07/28/19 24 elect rocar diogr am No observ ation record ed. Not Available 2023 10:34:36 Result Notes None recorded. Problems Name Problem SNOMED Code Status Onset Date Resolution Date Notes Provider Name and Address Organization Details Recorded Time Essential hypertensi on 31914495 Active 2017 Anaya [place], [place] - [facility] 2 14:12:26 Hyperlipid emia 50356186 Active 2017 Anaya [place], [place] - [facility] 2 14:12:26 Syncope 731859853 Active 2017 Anaya [place], [place] - [facility] 2 14:12:26 Takotsubo cardiomyop athy 828670460 Active 2017 Anaya [place], [place] - [facility] 2 14:12:26 Intracrani al meningioma 107922002 Active 2018 s/p craniotomy Anaya [place], [place] - [facility] 2 14:12:26 Seizure 04310153 Active 2018 Anaya Davis [place], [place] - [...] 12/19/2017 10:40:25 HEENT Surgery completed Martha Lopes [facility] 12/23/2017 16:03:39 Imaging Results Imaging Date Name Status LastModified by Organization Details LastModified Time 09/03/2022 event monitor completed [facility] Special[facility], [facility] [address], [place], [address], 09/15/2022 14:23:32 08/16/2022 XR, chest, 1 view completed Informa tion not available 10/23/2022 15:49:28 08/16/2022 CT, head, w/o contrast completed Information not available 10/23/2022 15:50:38 10/28/2022 US, echocardiogram, transthoracic, complete, w/ color flow completed Radiology [address] [place], [address], 10/29/2022 07:53:37 10/28/2022 US, duplex, carotid artery completed Radiology [address] , [place], [address], 11/01/2022 12:15:47 04/29/2023 US, echocardiogram completed Inform ation not available 06/11/2023 09:25:53 06/11/2023 XR, chest, 1 view completed Informa tion not available 06/11/2023 09:26:50 04/28/2023 MRI, brain, w/o contrast completed Information not available 06/11/2023 09:29:27 04/28/2023 CT, head, w/o contrast completed Information not available 06/11/2023 09:30:30 06/12/2023 electrocardiogram completed In-Hous e Results For Internal Use Only, Do Not Delete/merge, [id number] 06/12/2023 12:19:51 06/12/2023 electrocardiogram completed Informa tion not available 06/12/2023 12:24:06 07/08/2023 PET, heart completed Charly Wallace MD ([facility]) [address], [place], [address], 07/27/2023 13:20:25 07/18/2023 US, echocardiogram completed Inform ation not available 07/25/2023 14:36:09 07/16/2023 electrocardiogram completed Informa tion not available 07/25/2023 14:38:21 07/28/2023 electrocardiogram completed In-Hous e Results For Internal Use Only, Do Not Delete/merge, [id number] 07/28/2023 10:35:22 07/28/2023 electrocardiogram completed Informa tion not available 07/28/2023 10:34:36 Procedure Notes None recorded. Medical Equipment None Reported. Allergies Allergen ID Allergen Name Allergen Category Reaction Reaction Severity Criticality Documentation Date Start Date Code Code System Note Provider Name and Address Organization Details Recorded Time 24428 Cipro medicatio n Not available Not available Not available 12/19/201704813 3 RxNorm Anaya Cannon [place], [place] - [facility] 14:16:18 [...] mm[Hg] 117 mm[Hg] 71 mm[Hg] Not Available [facility] 3 10:55:06 Date Recorded Body height Respiratory rate Body mass index (BMI) Body weight Heart rate Oxygen saturation Oxygen saturation in Arterial blood by Pulse oximetry Systolic blood pressure Diastolic blood pressure Provider Name and Address Organization Details Last Updated DateTime 3 162.56 cm 16 /min 41.2 kg/m2 050907. 17 g 72 /min 91 % 91 % 118 mm[Hg] 77 mm[Hg] Teresa Pratt [facility] 3 13:25:12 Date Recorded Heart rate Systolic blood pressure Diastolic blood pressure Provider Name and Address Organization Details Last Updated DateTime 08/30/2022 78 /min 117 mm[Hg] 71 mm[Hg] Not Available [facility] 08/30/2022 15:27:01 Date Recorded Heart rate Systolic [...] mm[Hg] 149 mm[Hg] 83 mm[Hg] Not Available [facility] 10:07:05 Date Recorded Heart rate Heart rate Systolic blood pressure Diastolic blood pressure Systolic blood pressure Diastolic blood pressure Provider Name and Address Organization Details Last Updated DateTime 3 84 /min 84 /min 149 mm[Hg] 83 mm[Hg] 149 mm[Hg] 83 mm[Hg] Not Available [facility] 12:33:05 Date Recorded Heart rate Heart rate Systolic blood pressure Diastolic blood pressure Systolic blood pressure Diastolic blood pressure Provider Name and Address Organization Details Last Updated DateTime 3 82 /min 82 /min 133 mm[Hg] 80 mm[Hg] 133 mm[Hg] 80 mm[Hg] Not Available [facility] 12:34:07 Date Recorded Heart rate Heart rate Systolic blood pressure Diastolic blood pressure Systolic blood pressure Diastolic blood pressure Provider Name and Address Organization Details Last Updated DateTime 3 79 /min 79 /min 116 mm[Hg] 80 mm[Hg] 116 mm[Hg] 80 mm[Hg] Not Available [facility] 12:02:03 Date Recorded Body height Heart rate Oxygen saturation Oxygen saturation in Arterial blood by Pulse oximetry Respiratory rate Body mass index (BMI) Body weight Systolic blood pressure Diastolic blood pressure Provider Name and Address Organization Details Last Updated DateTime 3 162.56 cm 77 /min 94 % 94 % 16 /min 39.5 kg/m2 711722. 25 g 114 mm[Hg] 76 mm[Hg] Anaya [...] /min 144 mm[Hg] 83 mm[Hg] Not Available [facility] 11/27/2022 12:15:07 Date Recorded Heart rate Systolic blood pressure Diastolic blood pressure Provider Name and Address Organization Details Last Updated DateTime 11/29/2022 77 /min 134 mm[Hg] 83 mm[Hg] Not Available [facility] 11/29/2022 12:35:02 Date Recorded Heart rate Systolic blood pressure Diastolic blood pressure Provider Name and Address Organization Details Last Updated DateTime 11/30/2022 80 /min 128 mm[Hg] 78 mm[Hg] Not Available [facility] 11/30/2022 11:50:06 Date Recorded Heart rate Systolic blood pressure Diastolic blood pressure Provider Name and Address Organization Details Last Updated DateTime 12/01/2022 81 /min 153 mm[Hg] 82 mm[Hg] Not Available [facility] 12/02/2022 13:32:04 Date Recorded Heart rate Systolic blood pressure Diastolic blood pressure Provider Name and Address Organization Details Last Updated DateTime 12/02/2022 72 /min 128 mm[Hg] 79 mm[Hg] Not Available [facility] 12/02/2022 13:32:06 Date Recorded Heart rate Systolic blood pressure Diastolic blood pressure Provider Name and Address Organization Details Last Updated DateTime 12/03/2022 75 /min 128 mm[Hg] 79 mm[Hg] Not Available [facility] 12/03/2022 15:28:02 Date Recorded Heart rate Systolic blood pressure Diastolic blood pressure Provider Name and Address Organization Details Last Updated DateTime 12/05/2022 89 /min 122 mm[Hg] 77 mm[Hg] Not Available [facility] 12/05/2022 11:33:06 Date Recorded Heart rate Heart rate Systolic blood pressure Diastolic blood pressure Systolic blood pressure Diastolic blood pressure Provider Name and Address Organization Details Last Updated DateTime 82 /min 81 /min 151 mm[Hg] 79 mm[Hg] 125 mm[Hg] 77 mm[Hg] Not Available [facility] 11:10:07 Date Recorded Heart rate Heart rate [...] /min 133 mm[Hg] 76 mm[Hg] Not Available [facility] 12/09/2022 12:31:03 Date Recorded Heart rate Systolic [...] /min 138 mm[Hg] 80 mm[Hg] Not Available [facility] 12/13/2022 11:36:05 Date Recorded Heart rate Systolic blood pressure Diastolic blood pressure Provider Name and Address Organization Details Last Updated DateTime 12/14/2022 87 /min 154 mm[Hg] 80 mm[Hg] Not Available [facility] 12/15/2022 11:54:07 Date Recorded Heart rate Systolic blood pressure Diastolic blood pressure Provider Name and Address Organization Details Last Updated DateTime 12/15/2022 82 /min 131 mm[Hg] 75 mm[Hg] Not Available [facility] 12/15/2022 11:55:06 Date Recorded Heart rate Heart [...] /min 111 mm[Hg] 68 mm[Hg] Not [facility] 12/31/2022 10:51:04 Date Recorded Heart rate Systolic blood pressure Diastolic blood pressure Provider Name and Address Organization Details Last Updated DateTime 01/01/2023 84 /min 115 mm[Hg] 70 mm[Hg] Not Available [facility] 01/01/2023 11:51:05 Date Recorded Heart rate Systolic blood pressure Diastolic blood pressure Provider Name and Address Organization Details Last Updated DateTime 01/03/2023 79 /min 126 mm[Hg] 77 mm[Hg] Not Available [facility] 01/03/2023 12:18:08 Date Recorded Heart rate Systolic blood pressure Diastolic blood pressure Provider Name and Address Organization Details Last Updated DateTime 01/04/2023 82 /min 126 mm[Hg] 77 mm[Hg] Not Available [facility] 01/04/2023 12:00:02 Date Recorded Heart rate Heart rate Systolic blood pressure Diastolic blood pressure Systolic blood pressure Diastolic blood pressure Provider Name and Address Organization Details Last Updated DateTime 85 /min 87 /min 136 mm[Hg] 97 mm[Hg] 121 mm[Hg] 75 mm[Hg] Not Available [facility] 11:26:06 Date Recorded Heart rate Systolic blood pressure Diastolic blood pressure Provider Name and Address Organization Details Last Updated DateTime 01/08/2023 72 /min 121 mm[Hg] 75 mm[Hg] Not Available [facility] 01/08/2023 13:06:04 Date Recorded Heart rate Heart rate Systolic blood pressure Diastolic blood pressure Systolic blood pressure Diastolic blood pressure Provider Name and Address Organization Details Last Updated DateTime 81 /min 74 /min 141 mm[Hg] 93 mm[Hg] 125 mm[Hg] 71 mm[Hg] Not Available [facility] 13:54:01 Date Recorded Heart rate Systolic blood pressure Diastolic blood pressure Provider Name and Address Organization Details Last Updated DateTime 01/10/2023 75 /min 119 mm[Hg] 65 mm[Hg] Not Available [facility] 01/10/2023 12:34:07 Date Recorded Heart rate Systolic blood pressure Diastolic blood pressure Provider Name and Address Organization Details Last Updated DateTime 01/12/2023 77 /min 114 mm[Hg] 63 mm[Hg] Not Available [facility] 01/12/2023 15:30:03 Date Recorded Heart rate Systolic blood pressure Diastolic blood pressure Provider Name and Address Organization Details Last Updated DateTime 01/13/2023 73 /min 112 mm[Hg] 47 mm[Hg] Not Available [facility] 01/13/2023 13:18:02 Date Recorded Heart rate Systolic blood pressure Diastolic blood pressure Provider Name and Address Organization Details Last Updated DateTime 01/14/2023 74 /min 123 mm[Hg] 71 mm[Hg] Not Available [facility] 01/14/2023 14:02:04 Date Recorded Heart rate Systolic blood pressure Diastolic blood pressure Provider Name and Address Organization Details Last Updated DateTime 01/16/2023 81 /min 110 mm[Hg] 66 mm[Hg] Not Available [facility] 01/16/2023 11:03:02 Date Recorded Heart rate Systolic blood pressure Diastolic blood pressure Provider Name and Address Organization Details Last Updated DateTime 01/19/2023 87 /min 125 mm[Hg] 80 mm[Hg] Not Available [facility] 01/19/2023 10:28:02 Date Recorded Heart rate Systolic blood pressure Diastolic blood pressure Provider Name and Address Organization Details Last Updated DateTime 01/18/2023 84 /min 150 mm[Hg] 68 mm[Hg] Not Available [facility] 01/19/2023 10:28:06 Date Recorded Heart rate Systolic blood pressure Diastolic blood pressure Provider Name and Address Organization Details Last Updated DateTime 01/21/2023 82 /min 143 mm[Hg] 77 mm[Hg] Not Available [facility] 01/21/2023 10:44:02 Date Recorded Heart rate Systolic blood pressure Diastolic blood pressure Provider Name and Address Organization Details Last Updated DateTime 01/20/2023 73 /min 119 mm[Hg] 74 mm[Hg] Not Available [facility] 01/21/2023 10:44:06 Date Recorded Heart rate Systolic blood pressure Diastolic blood pressure Provider Name and Address Organization Details Last Updated DateTime 01/22/2023 82 /min 113 mm[Hg] 70 mm[Hg] Not Available [facility] 01/22/2023 12:50:05 Date Recorded Heart rate Systolic blood pressure Diastolic blood pressure Provider Name and Address Organization Details Last Updated DateTime 01/23/2023 81 /min 115 mm[Hg] 76 mm[Hg] Not Available [facility] 01/23/2023 12:51:04 Date Recorded Heart rate Systolic blood pressure Diastolic blood pressure Provider Name and Address Organization Details Last Updated DateTime 01/24/2023 72 /min 116 mm[Hg] 64 mm[Hg] Not Available [facility] 01/24/2023 15:15:02 Date Recorded Heart rate Systolic blood pressure Diastolic blood pressure Provider Name and Address Organization Details Last Updated DateTime 01/25/2023 81 /min 110 mm[Hg] 61 mm[Hg] Not Available [facility] 01/25/2023 13:07:06 Date Recorded Heart rate Systolic blood pressure Diastolic blood pressure Provider Name and Address Organization Details Last Updated DateTime 01/26/2023 86 /min 117 mm[Hg] 64 mm[Hg] Not Available [facility] 01/26/2023 13:30:07 Date Recorded Heart rate Systolic blood pressure Diastolic blood pressure Provider Name and Address Organization Details Last Updated DateTime 01/27/2023 84 /min 113 mm[Hg] 57 mm[Hg] Not Available [facility] 01/27/2023 14:24:05 Date Recorded Heart rate Systolic blood pressure Diastolic blood pressure Provider Name and Address Organization Details Last Updated DateTime 01/29/2023 76 /min 113 mm[Hg] 57 mm[Hg] Not Available [facility] 01/29/2023 11:56:07 Date Recorded Heart rate Systolic blood pressure Diastolic blood pressure Provider Name and Address Organization Details Last Updated DateTime 01/30/2023 70 /min 128 mm[Hg] 69 mm[Hg] Not Available [facility] 02/02/2023 19:41:01 Date Recorded Heart rate Heart rate Systolic blood pressure Diastolic blood pressure Systolic blood pressure Diastolic blood pressure Provider Name and Address Organization Details Last Updated DateTime 70 /min 71 /min 140 mm[Hg] 70 mm[Hg] 150 mm[Hg] 74 mm[Hg] Not Available [facility] 19:41:02 Date Recorded Heart rate Systolic blood [...] /min 127 mm[Hg] 83 mm[Hg] Not Available [facility] 02/28/2023 11:18:02 Date Recorded Heart rate Systolic [...] /min 126 mm[Hg] 82 mm[Hg] Not Available [facility] 03/03/2023 11:55:02 Date Recorded Heart rate Systolic blood pressure Diastolic blood pressure Provider Name and Address Organization Details Last Updated DateTime 03/02/2023 86 /min 127 mm[Hg] 84 mm[Hg] Not Available [facility] 03/03/2023 11:55:03 Date Recorded Heart rate Systolic blood pressure Diastolic blood pressure Provider Name and Address Organization Details Last Updated DateTime 03/04/2023 87 /min 133 mm[Hg] 82 mm[Hg] Not Available [facility] 04/07/2023 10:49:03 Date Recorded Heart rate Systolic blood pressure Diastolic blood pressure Provider Name and Address Organization Details Last Updated DateTime 03/05/2023 85 /min 115 mm[Hg] 68 mm[Hg] Not Available [facility] 04/07/2023 10:49:05 Date Recorded Heart rate Systolic blood pressure Diastolic blood pressure Provider Name and Address Organization Details Last Updated DateTime 03/10/2023 82 /min 135 mm[Hg] 84 mm[Hg] Not Available [facility] 04/07/2023 10:50:02 Date Recorded Heart rate Systolic blood pressure Diastolic blood pressure Provider Name and Address Organization Details Last Updated DateTime 03/09/2023 84 /min 116 mm[Hg] 80 mm[Hg] Not Available [facility] 04/07/2023 10:50:05 Date Recorded Heart rate Heart rate Systolic blood pressure Diastolic blood pressure Systolic blood pressure Diastolic blood pressure Provider Name and Address Organization Details Last Updated DateTime 81 /min 80 /min 152 mm[Hg] 86 mm[Hg] 124 mm[Hg] 82 mm[Hg] Not [facility] 10:50:06 Date Recorded Heart rate Systolic blood [...] /min 126 mm[Hg] 85 mm[Hg] Not [facility] 04/07/2023 10:51:02 Date Recorded Heart rate Systolic blood pressure Diastolic blood pressure Provider Name and Address Organization Details Last Updated DateTime 03/12/2023 84 /min 129 mm[Hg] 84 mm[Hg] Not Available [facility] 04/07/2023 10:51:04 Date Recorded Heart rate Heart [...] /min 126 mm[Hg] 75 mm[Hg] Not Available [facility] 04/07/2023 10:51:07 Date Recorded Heart rate Systolic blood pressure Diastolic blood pressure Provider Name and Address Organization Details Last Updated DateTime 03/20/2023 83 /min 139 mm[Hg] 78 mm[Hg] Not Available [facility] 04/07/2023 10:52:04 Date Recorded Heart rate Systolic blood pressure Diastolic blood pressure Provider Name and Address Organization Details Last Updated DateTime 03/19/2023 84 /min 133 mm[Hg] 85 mm[Hg] Not Available [facility] 04/07/2023 10:52:06 Date Recorded Heart rate Heart [...] /min 115 mm[Hg] 59 mm[Hg] Not Available [facility] 06/09/2023 10:26:04 Date Recorded Heart rate Systolic blood pressure Diastolic blood pressure Provider Name and Address Organization Details Last Updated DateTime 05/08/2023 73 /min 133 mm[Hg] 75 mm[Hg] Not Available [facility] 06/10/2023 12:56:05 Date Recorded Heart rate Systolic blood pressure Diastolic blood pressure Provider Name and Address Organization Details Last Updated DateTime 05/09/2023 72 /min 133 mm[Hg] 62 mm[Hg] Not Available [facility] 06/10/2023 12:56:09 Date Recorded Heart rate Systolic blood pressure Diastolic blood pressure Provider Name and Address Organization Details Last Updated DateTime 05/10/2023 75 /min 138 mm[Hg] 72 mm[Hg] Not Available [facility] 06/10/2023 12:58:03 Date Recorded Heart rate Heart rate Systolic blood pressure Diastolic blood pressure Systolic blood pressure Diastolic blood pressure Provider Name and Address Organization Details Last Updated DateTime 80 /min 85 /min 150 mm[Hg] 79 mm[Hg] 150 mm[Hg] 68 mm[Hg] Not Available [facility] 13:01:03 Date Recorded Heart rate Systolic blood pressure Diastolic blood pressure Provider Name and Address Organization Details Last Updated DateTime 05/13/2023 83 /min 130 mm[Hg] 65 mm[Hg] Not Available [facility] 06/10/2023 13:01:02 Date Recorded Heart rate Systolic blood pressure Diastolic blood pressure Provider Name and Address Organization Details Last Updated DateTime 05/14/2023 74 /min 136 mm[Hg] 71 mm[Hg] Not Available [facility] 06/10/2023 13:03:04 Date Recorded Heart rate Systolic blood pressure Diastolic blood pressure Provider Name and Address Organization Details Last Updated DateTime 05/15/2023 73 /min 134 mm[Hg] 72 mm[Hg] Not Available [facility] 06/10/2023 13:03:05 Date Recorded Heart rate Systolic [...] 4 162.56 cm 16 /min 41.2 kg/m2 350200. 17 g 70 /min 93 % 93 [...] /min 113 mm[Hg] 80 mm[Hg] Not Available [facility] 06/24/2023 12:15:08 Date Recorded Heart rate Systolic blood pressure Diastolic blood pressure Provider Name and Address Organization Details Last Updated DateTime 06/26/2023 70 /min 140 mm[Hg] 84 mm[Hg] Not Available [facility] 06/26/2023 13:01:06 Date Recorded Heart rate Heart rate Heart rate Systolic blood pressure Diastolic blood pressure Systolic blood pressure Diastolic blood pressure Systolic blood pressure Diastolic blood pressure Provider Name and Address Organization Details Last Updated DateTime 4 79 /min 78 /min 79 /min 142 mm[Hg] 86 mm[Hg] 175 mm[Hg] 124 mm[Hg] 135 mm[Hg] 72 mm[Hg] Not Available [facility] 4 11:55:07 Date Recorded Heart rate Heart rate Systolic blood pressure Diastolic blood pressure Systolic blood pressure Diastolic blood pressure Provider Name and Address Organization Details Last Updated DateTime 4 78 /min 77 /min 148 mm[Hg] 94 mm[Hg] 128 mm[Hg] 79 mm[Hg] Not Available [facility] 4 10:45:01 Date Recorded Heart rate Heart rate Systolic blood pressure Diastolic blood pressure Systolic blood pressure Diastolic blood pressure Provider Name and Address Organization Details Last Updated DateTime 4 71 /min 70 /min 125 mm[Hg] 105 mm[Hg] 127 mm[Hg] 67 mm[Hg] Not Available [facility] 4 12:14:10 Date Recorded Heart rate Systolic blood pressure Diastolic blood pressure Provider Name and Address Organization Details Last Updated DateTime 07/01/2023 73 /min 150 mm[Hg] 86 mm[Hg] Not Available [facility] 07/01/2023 12:14:09 Date Recorded Body height Respiratory rate Heart rate Oxygen saturation Oxygen saturation in Arterial blood by Pulse oximetry Body mass index (BMI) Body weight Systolic blood pressure Diastolic blood pressure Provider Name and Address Organization Details Last Updated DateTime 4 162.56 cm 16 /min 79 /min 93 % 93 % 40.3 kg/m2 871790. 21 g 100 mm[Hg] 66 mm[Hg] Viviana Butts [facility] 4 10:12:47 Date Recorded Body height Respiratory rate Oxygen saturation Oxygen saturation in Arterial blood by Pulse oximetry Heart rate Systolic blood pressure Diastolic blood pressure Provider Name and Address Organization Details Last Updated DateTime 4 162.56 cm 16 /min 94 % 94 % 73 /min 136 mm[Hg] 84 mm[Hg] Martha Scottandrea kilgore [place] - [facility] 4 13:09:41 Date Recorded Body mass index (BMI) Body weight Provider Name and Address Organization Details Last Updated DateTime 10/30/2023 41.2 kg/m2 333267.17 RAY Cruz [address] [place] [address],[address], [place], [address], [place] - [facility] 10/30/2023 13:13:38 Social History Question Answer Notes LastModified by Organizat ion Details LastModified Time Tobacco Smoking Status Former Smoker Shari Loza rehtt, [place] - [facility] 01/22/2022 16:22:20 Do You Have An Advance Directive? Yes Surrogate Decision Maker Luis Hare Information not available 04/27/2019 What Is Your Level Of Alcohol Consumption? Moderate 1-2 Glasses Of Wine Daily [email or web address] Information not available 01/22/2022 Is Blood Transfusion Acceptable In An Emergency? Yes [email or web address] Information not available 01/22/2022 What Is Your Level Of Caffeine Consumption? Moderate 1 Cup Per Day And 3 Cups Of Diet Tea Per Day [email or web address] Information not available 01/22/2022 What Type Of Diet Are You Following? SPECIFIC [email or web address] Information not available 01/22/2022 Do You Or Have You Ever Used E-cigarettes Or Vape? Never Used Electronic Cigarettes Information not available 01/27/2019 What Was The Date Of Your Most Recent Tobacco Screening? 10/30/2023 [email or web address] Information not available 10/30/2023 What Is Your Relationship Status? [email or web address] Information not available 01/22/2022 At What Age Did You Start Smoking Tobacco? 22 [email or web address] Information not available 01/22/2022 Do You Or Have You Ever Used Smokeless Tobacco? Never Used Smokeless Tobacco Information not available 01/27/2019 How Much Tobacco Do You Smoke? No [email or web address] Information not available 01/22/2022 Do You Use Any Illicit Or Recreational Drugs? No [email or web address] Information not available 01/22/2022 How Many Years Have You Smoked Tobacco? 15 [email or web address] Information not available 01/22/2022 Do You Or Have You Ever Used Any Other Forms Of Tobacco Or Nicotine? No [email or web address] Information not available 09/21/2020 Sex: Female Functional Status Question Answer Note LastModified by Organization D etails LastModified Time What is your exercise level? None [email or web address] Information not available 01/22/2022 Mental Status None [...] SNOMED-CT Code Diagnosis ICD10 Code Diagnosis Note [id number] Reyna Almeida [facility] - [facility] [address] [place] [address] 12/23/2017 15:33:34 12/23/2017 16:49:48 Benign essential hypertension 7298180 I10 Patient reports occasional dizziness at home. Decrease losartan to 25mg once daily. Create BP log for follow up in six weeks. Syncope 076581384 R55 No recurrent episode. Patient was evaluated in the hospital. Managed by neurologtamera hernandes Takotsubo cardiomyopathy 876939417 I51.81 Heart catherizat ion performed on 12/03/2017 revealed minimal coronary artery disease and LVEF estimated at 35-40%. On carvedilol and furosemide . Reassess LVEF in six months. Hyperlipidemia 16657296 E78.00 On statin therapy. Electrocar diogram abnormal 749159026 R94.31 Abnormal EKG. Patient underwent heart catherizat ion which revealed minimal coronary artery disease. Cerebral meningioma 1891 [address] Hinojosa. Overweight 153699651 E66 .3 Healthy diet discussed. Advised to refrain from alcohol consumptio n. 62739 Reyna Almeida [facility] [address] [place], [place] [address] 7 02/03/2018 12:54:46 02/03/2018 13:26:53 Electrocardiogram abnormal 633741841 R94.31 Abnormal EKG. Patient underwent heart catherizat ion which revealed minimal coronary artery disease. Takotsubo cardiomyopathy 277595966 I51.81 Heart catherizat ion performed on 12/03/2017 revealed minimal coronary artery disease and LVEF estimated at 35-40%. On carvedilol and furosemide . Reassess LVEF in six months. Benign ess ential hypertension 9423636 I10 Patient reports occasional dizziness at home. Improved with decreased dose of losartan. Syncope 803009680 R55 No recurrent episode. Patient was evaluated in the hospital. Managed by neurologis t. Hyperlipidemia 19015458 E78.00 On statin therapy. Cerebral meningioma 1891 [address] Hinojosa. Overweight 734386384 E66 .3 Healthy diet discussed. Advised to refrain from alcohol consumptio n. Seizure disorder 5469793 02 G40.909 S/P seizure. Managed by Dr. Hinojosa. 96662 Charly [facility] MD [place] [address]36565 7 04/03/2018 13:12:28 04/03/2018 14:28:06 Electrocardiogram abnormal 844907466 R94.31 Abnormal EKG. Patient underwent heart catherizat ion which revealed minimal coronary artery disease. Patient is currently at an acceptable risk from cardiac standpoint to undergo non-cardia c surgery. Monitor for volume overload. Patient evaluated by Dr Charly Wallace She is at acceptable risk to undergo surgery. Avoid volume overload Takotsubo cardiomyopathy 511222036 I51.81 Heart catherizat ion performed on 12/03/2017 revealed minimal coronary artery disease and LVEF estimated at 35-40%. On carvedilol and furosemide . Benign ess ential hypertension 2736050 I10 Patient reports occasional dizziness at home. Improved with decreased dose of losartan. Syncope 485315004 R55 No recurrent episode. Patient was evaluated in the hospital. Managed by neurologis t. Hyperlipidemia 49371577 E78.00 On statin therapy. Cerebral meningioma 1891 [address] Hinojosa. Patient is scheduled for surgical management of meningioma . Overweight 573600452 E66 .3 Healthy diet discussed. Advised to refrain from alcohol consumptio n. Seizure disorder 4791109 02 G40.909 S/P seizure. Managed by Dr. Hinojosa. 71551 Charly [facility] MD [facility] [address] [place] [address] [address] [place] [address] 05/05/2018 11:37:48 05/05/2018 12:12:51 Electrocardiogram abnormal 509785561 R94.31 Stable Takotsubo cardiomyopathy 652268868 I51.81 Heart catherizat ion performed on 12/03/2017 revealed minimal coronary artery disease and LVEF estimated at 35-40%. On carvedilol and furosemide . Plan echo next month Benign ess ential hypertension 6426347 I10 acceptable control blood pressure. Syncope 026775402 R55 no further syncope. Patient had a meningioma which is status post resection. Hyperlipidemia 44305990 E78.00 On statin therapy. Cerebral meningioma 1891 [address] Hinojosa. Status post surgical resection of meningioma . Overweight 136807515 E66 .3 Healthy diet discussed. Advised to refrain from alcohol consumptio n. Seizure disorder 4270371 02 G40.909 S/P seizure. Managed by Dr. Hinojosa. No further seizures status post meningioma resection. 47832 Reyna Almeida [facility] [address] [place] [address] [address] [place] [address] 01/27/2019 13:44:48 01/27/2019 15:25:14 Takotsubo cardiomyopathy 752744898 I51.81 Heart catherizat ion performed on 12/03/2017 revealed minimal coronary artery disease and LVEF estimated at 35-40%. On carvedilol and furosemide . Assess LV function with 2D echo. Electrocar diogram abnormal 692558751 R94.31 Stable Benign ess ential hypertension 6524351 I10 Acceptable control blood pressure. Syncope 235192696 R55 no further syncope. Patient had a meningioma which is status post resection. Patient reports recent dizziness while changing position.W e will decrease carvedilol to 1/2 tablet twice daily.Plan 2D echo to assess LV function.A dvised patient to increase hydration as well. Follow up with blood pressure log. Hyperlipidemia 25567278 E78.00 On statin therapy. Cerebral meningioma 1891 [address] Hinojosa. Status post surgical resection of meningioma . Overweight 913822113 E66 .3 Healthy diet discussed. Advised to refrain from alcohol consumptio n. She has gained 17lbs since last visit. Seizure disorder 5534919 02 G40.909 S/P seizure. Managed by Dr. Hinojosa. No further seizures status post meningioma resection. 57950 Charly [facility] MD [facility] - OFFICE [address] [facility] [place] [address] 04/27/2019 11:06:55 04/27/2019 11:36:59 Electrocardiogram abnormal 765495390 R94.31 Not repeated at today's visit. Takotsubo cardiomyopathy 072329016 I51.81 Heart catherizat ion performed on 12/03/2017 revealed minimal coronary artery disease and LVEF estimated at 35-40%. On carvedilol and furosemide . Most recent echocardio gram performed February 2019 revealed preserved LV function. Estimated ejection fraction 55-60 % Benign ess ential hypertension 5480254 I10 Borderline control of blood pressure. Blood pressure better controlled at home. Continue current meds.Kitty nt reports blood pressure 130/80 or less at home. Managed by primary physician. Syncope 201781062 R55 no further syncope. Hyperlipidemia 79892030 E78.00 On statin therapy. Cerebral meningioma 1891 [address] Hinojosa. Status post surgical resection of meningioma . Overweight 809272389 E66 .3 Healthy diet discussed. Advised to refrain from alcohol consumptio n. Patient will attempt to lose weight. Seizure disorder 7622018 02 G40.909 S/P seizure. Managed by Dr. Hinojosa. No further seizures status post meningioma resection. 94631 Reyna Almeida [facility] [address] [place] [address] [address] [place] [address] 11/18/2019 12:58:51 11/18/2019 13:42:38 Essential hypertension 39930332 I10 Blood pressure elevated at today's visit.Alina ent reports acceptable control of blood pressure at home. Electrocar diogram abnormal 971692952 R94.31 Stabel/unc hanged Takotsubo cardiomyopathy 203801289 I51.81 Heart catherizat ion performed on 12/03/2017 revealed minimal coronary artery disease and LVEF estimated at 35-40%. On carvedilol and furosemide . Most recent echocardio gram performed February 2019 revealed preserved LV function. Estimated ejection fraction 55-60 %. Stable. Renew med. Syncope 915095146 R55 no further syncope. Hyperlipidemia 38039353 E78.00 On statin therapy. Cerebral meningioma 1890 [address] Hinojosa. Status post surgical resection of meningioma . Being followed up by Dr. Hinojosa. Overweight 338062594 E66 .3 Healthy diet discussed. Advised to refrain from alcohol consumptio n. Patient is unable to exercise due to orthopedic limitation s.She has modified her diet but was unable to lose weight. Seizure disorder 7353488 02 G40.909 S/P seizure. Managed by Dr. Hinojosa. No further seizures status post meningioma resection. Difficulty swallowing 28 9800931 R13.10 Reports difficulty swallowing .She is scheduled to follow up with GI. Memory impairment 189705 006 R41.3 Worsening memory impairment since meningioma resection. She will follow up with neurology regarding this. 27[address] [facility] Juan Pablo [facility] [address] [place] [address] 06/20/2020 14:15:29 06/20/2020 14:56:49 Essential hypertension 17151092 I10 Acceptable control of blood pressure with current medication . Takotsubo cardiomyopathy 203393948 I51.81 Heart catherizat ion performed on 12/03/2017 revealed minimal coronary artery disease and LVEF estimated at 35-40%. On carvedilol and furosemide . Most recent echocardio gram performed February 2019 revealed preserved LV function. Estimated ejection fraction 55-60 %. Patient feeling well from cardiac standpoint .She is currently at an acceptable risk from cardiac standpoint to undergo non-cardia c surgery. Electrocar diogram abnormal 284626026 R94.31 Stable/unc hanged Syncope 826076527 R55 no further syncope. Hyperlipidemia 07180958 E78.00 On statin therapy. Cerebral meningioma 1890 [address] Hinojosa. Status post surgical resection of meningioma . Being followed up by Dr. Hinojosa. Memory impairment 726182 006 R41.3 Worsening memory impairment since meningioma resection. She will follow up with neurology regarding this. Seizure disorder 0828916 02 G40.909 S/P seizure. Managed by Dr. Hinojosa. No further seizures status post meningioma resection. Difficulty swallowing 28 7160648 R13.10 Resolved. Overweight 697998499 E66 .3 Healthy diet discussed. Advised to refrain from alcohol consumptio n. Patient is unable to exercise due to orthopedic limitation s.She has modified her diet but was unable to lose weight. Lost about 32lbs with diet. Knee pain 96525152 M25.5 69 Tentative plan for knee surgery. 27734 Charly [facility] MD [facility] [address] [place] [address] 09/21/2020 11:36:29 09/21/2020 12:26:08 Essential hypertension 15167850 I10 Patient has been taking blood pressure at home however her device failed. But has not yet been replaced. Recommend remote patient monitoring . Target blood pressure 130 over 80 or less Takotsubo cardiomyopathy 273300961 I51.81 Heart catherizat ion performed on 12/03/2017 revealed minimal coronary artery disease and LVEF estimated at 35-40%. On carvedilol and furosemide . Most recent echocardio gram performed February 2019 revealed preserved LV function. Estimated ejection fraction 55-60 %.Stable Electrocar diogram abnormal 523636074 R94.31 Stable/unc hanged Syncope 737857155 R55 no further syncope. Hyperlipidemia 91533162 E78.00 On statin therapy. Cerebral meningioma 1891 [address] Hinojosa. Status post surgical resection of meningioma . Being followed up by Dr. Hinojosa. Memory impairment 642704 006 R41.3 Worsening memory impairment since meningioma resection. She will follow up with neurology regarding this. Seizure disorder 8385948 02 G40.909 S/P seizure. Managed by Dr. Hinojosa. No further seizures status post meningioma resection. Overweight 433485688 E66 .3 Healthy diet discussed. Advised to refrain from alcohol consumptio n.Discussi on regarding weight loss Knee pain 38306829 M25.5 69 s/p knee surgery Difficulty swallowing 28 4750777 R13.10 Resolved. [id number] Charly [facility] MD [facility] [address] [place] [address] [address] [place] [address] 06/11/2021 11:23:58 06/11/2021 11:54:42 Hyperlipidemia 60210581 E78.00 On statin therapy.Ma naged by primary Syncope 350253696 R55 no further syncope. Takotsubo cardiomyopathy 411436184 I51.81 Heart catherizat ion performed on 12/03/2017 revealed minimal coronary artery disease and LVEF estimated at 35-40%. On carvedilol and furosemide . Most recent echocardio gram performed February 2019 revealed preserved LV function. Estimated ejection fraction 55-60 %.Stable Electrocar diogram abnormal 488228811 R94.31 Stable/unc hanged Essential hypertension 65409567 I10 Review of blood pressure reveals elevated diastolic pressure. Recommend increasing losartan to 50 mg every afternoon and 25 mg every morning. Target blood pressure 130/80 or less. Cerebral meningioma 1891 [address] Hinojosa. Status post surgical resection of meningioma . Being followed up by Dr. Hinojosa. Patient looking for Dr. Hinojosa's new office since he left his previous employer Memory impairment 061554 006 R41.3 Worsening memory impairment since meningioma resection. She will follow up with neurology regarding this. Seizure disorder 8420034 02 G40.909 S/P seizure. Managed by Dr. Hinojosa. No further seizures status post meningioma resection. Knee pain 80812334 M25.5 69 s/p knee surgery Difficulty swallowing 28 9736309 R13.10 Resolved. Morbid obesity 392301036 E66.01 Healthy diet discussed. Advised to refrain from alcohol consumptio n.Discussi on regarding weight loss [id number] RAY Guzman [facility] - [facility] [address] [facility] [address] [place] [address] 10/31/2021 14:04:21 10/31/2021 14:53:56 Essential hypertension 85418591 I10 Review of blood pressure reveals suboptimal control. Last visit it was recommende d she increase losartan to 50 mg every afternoon and 25 mg every morning although patient reports she was unaware of increase. She will start increase at this time. Target blood pressure 130/80 or less. She is having issues with [facility] , will resend referral. Hyperlipidemia 99560126 E78.00 On statin therapy. Managed by primary. Syncope 549762785 R55 No further syncope. Takotsubo cardiomyopathy 121555441 I51.81 Heart catherizat ion performed on 12/03/2017 revealed minimal coronary artery disease and LVEF estimated at 35-40%. Echocardio gram performed February 2019 revealed preserved LV function. Estimated ejection fraction 55-60 %. Electrocar diogram abnormal 259224889 R94.31 Stable/unc hanged. Cerebral meningioma 1891 [address] Biggs. Status post surgical resection of meningioma . Memory impairment 709241 006 R41.3 Worsening memory impairment since meningioma resection. She will follow up with neurology regarding this. Seizure disorder 0791487 02 G40.909 S/P seizure. Managed by neuro. No further seizures status post meningioma resection. Morbid obesity 915175677 E66.01 Healthy diet discussed. Difficulty swallowing 28 2988389 R13.10 Resolved. [id number] Charly [facility] MD [facility] - OFFICE [address] [place] [address],[address] [place] [address] 01/22/2022 16:12:09 01/22/2022 16:31:24 Essential hypertension 60600807 I10 Review of blood pressures show mostly borderline but acceptable control. We will continue current meds. Hyperlipidemia 98081047 E78.00 On statin therapy. Managed by primary. Syncope 742861601 R55 No further syncope. Takotsubo cardiomyopathy 314596654 I51.81 Heart catherizat ion performed on 12/03/2017 revealed minimal coronary artery disease and LVEF estimated at 35-40%. Echocardio gram performed February 2019 revealed preserved LV function. Estimated ejection fraction 55-60 %. Electrocar diogram abnormal 559159671 R94.31 No ekg at todays visit Cerebral meningioma 1891 [address] Biggs. Status post surgical resection of meningioma . Memory impairment 484856 006 R41.3 Worsening memory impairment since meningioma resection. She will follow up with neurology regarding this. Seizure disorder 9724827 02 G40.909 S/P seizure. Managed by neuro. No further seizures status post meningioma resection. Morbid obesity 995749658 E66.01 Healthy diet discussed. Difficulty swallowing 28 3801091 R13.10 Resolved. Dehydration 96005630 E86 .0 I believe this patient is intravascu larly depleted. I have counseled her to increase her oral intake of water and decrease caffeine and alcohol [id number] RAY Guzman [facility] - OFFICE [address] [place] [address] 5 08/28/2022 13:08:28 08/28/2022 14:58:39 Essential hypertension 90380904 I10 Review of blood pressures show mostly borderline but acceptable control. We will continue current meds. Hyperlipidemia 33417412 E78.00 On statin therapy. Managed by primary. Takotsubo cardiomyopathy 704653873 I51.81 Heart catherizat ion performed 12/03/2017 revealed minimal coronary artery disease and LVEF estimated at 35-40%. Echocardio gram performed February 2019 revealed preserved LV function. Estimated ejection fraction 55-60%. Electrocar diogram abnormal 817067080 R94.31 No EKG at today's visit. Cerebral meningioma 1891 [address] Biggs. Status post surgical resection of meningioma . Memory impairment 692177 006 R41.3 Worsening memory impairment since meningioma resection. She will follow up with neurology regarding this. Seizure disorder 0280371 02 G40.909 S/P seizure. Managed by neuro. No further seizures status post meningioma resection. Morbid obesity 521920974 E66.01 Healthy diet discussed. Difficulty swallowing 28 0448687 R13.10 Resolved. Dehydration 73098057 E86 .0 Counseled to increase her oral intake of water and decrease caffeine and alcohol. Near syncope 512870005 R 55 Patient with frequent lightheade dness and one episode of near syncope. Currently undergoing neurologic evaluation . Recent blood work unremarkab le. Plan carotid US, echo and 48 hour holter monitor. Additional ly recommend patient increase hydration. [id number] RAY Guzman [facility] - [facility]ICE [address] [place] [address] 10/30/2022 12:50:33 10/30/2022 13:35:04 Takotsubo cardiomyopathy 715450606 I51.81 Heart catherizat ion performed 12/03/2017 revealed minimal coronary artery disease and LVEF estimated at 35-40%. Echocardio gram performed February 2019 revealed preserved LV function. Estimated ejection fraction 55-60%. Essential hypertension 78462597 I10 Review of blood pressures show mostly borderline but acceptable control. We will continue current meds. Hyperlipidemia 99793835 E78.00 On statin therapy. Managed by primary. Electrocar diogram abnormal 300969315 R94.31 No EKG at today's visit. Cerebral meningioma 1891 [address] Biggs. Status post surgical resection of meningioma . Memory impairment 816945 006 R41.3 Worsening memory impairment since meningioma resection. She will follow up with neurology regarding this. Seizure disorder 9756876 02 G40.909 S/P seizure. Managed by neuro. No further seizures status post meningioma resection. Morbid obesity 941597283 E66.01 Healthy diet discussed. Difficulty swallowing 28 1402796 R13.10 Resolved. Dehydration 52997000 E86 .0 Counseled to increase her oral intake of water and decrease caffeine and alcohol. Near syncope 754507441 R 55 Patient with frequent lightheade dness [...] syncopal episodes. Plan conservati ve management . [id number] Charly [facility] MD [facility] - [facility] [address] [facility] [facility] [address] [place] [address] 06/12/2023 11:11:21 06/12/2023 12:32:47 Syncope [id number] R55 No further syncope. Takotsubo cardiomyopathy [id number] I51.81 Heart catherizat ion performed on 12/03/2017 revealed minimal coronary artery disease and LVEF estimated at 35-40%. Echocardio gram performed February 2019 revealed preserved LV function. Estimated ejection fraction 55-60 %. Patient with shortness of breath as well as some lower extremity edema.Rece nt echo ejection fraction 60% Essential hypertension 22850820 I10 Excellent control of blood pressure. Hyperlipidemia 75555661 E78.00 On statin therapy. Managed by primary. Electrocar diogram abnormal 663152906 R94.31 No EKG at today's visit. Cerebral meningioma 1891 [address] Reynolds Status post surgical resection of meningioma . Memory impairment 800510 006 R41.3 Worsening memory impairment since meningioma resection. She will follow up with neurology regarding this. Seizure disorder 9620774 02 G40.909 S/P seizure. Managed by neuro. No further seizures status post meningioma resection. Morbid obesity 851757076 E66.01 Healthy diet discussed. Difficulty swallowing 28 5255273 R13.10 Resolved. Dehydration 81053212 E86 .0 Counseled to increase her oral intake of water and decrease caffeine and alcohol. Near syncope 884893733 R 55 Patient with frequent lightheade dness [...] Plan conservati ve management . Angina pectoris [id number] 0 I20.89 Patient with exertional dyspnea concerning [...] specificit y in this patient population . [id number] Charly [place] MD [facility] - OFFICE [address] [place] [address],[address] [place] [address] 07/28/2023 10:04:16 07/28/2023 10:42:05 Takotsubo cardiomyopathy [id number] I51.81 Heart catherizat ion performed on 12/03/2017 revealed minimal coronary artery disease and LVEF estimated at 35-40%. Echocardio gram performed February 2019 revealed preserved LV function. Estimated ejection fraction 55-60 %. Patient with shortness of breath as well as some lower extremity edema.Rece nt echo ejection fraction 60%-65% Hyperlipidemia 13060265 E78.00 On statin therapy. Managed by primary. Angina pectoris 15467120 0 I20.89 Patient with exertional dyspnea concerning [...] disease. Plan conservati ve management . Syncope 151978960 R55 No further syncope. Essential hypertension 34735703 I10 Patient with borderline hypotensio n. Will decrease losartan to 25 mg p.o. nightly. Electrocar diogram abnormal 973509347 R94.31 No EKG at today's visit. Cerebral meningioma 1891 [address] Reynolds Status post surgical resection of meningioma . Memory impairment 351279 006 R41.3 Worsening memory impairment since meningioma resection. She will follow up with neurology regarding this. Seizure disorder 9108825 02 G40.909 S/P seizure. Managed by neuro. No further seizures status post meningioma resection. Morbid obesity 208263480 E66.01 Healthy diet discussed. Difficulty swallowing 28 2689230 R13.10 Resolved. Dehydration 72907451 E86 .0 Counseled to increase her oral intake of water and decrease caffeine and alcohol. Near syncope 414665340 R 55 Patient with frequent lightheade dness [...] . Obstructiv e sleep apnea of adult [id number] 103 G47.33 Pulmonolog ist referral. Additional ly this patient had a recent pneumonia and requires pulmonary care. She is currently on home oxygen. [id number] RAY Guzman [facility] - OFFICE [address] [place] [address],[facility] [address] [place] [address] 10/30/2023 12:47:32 10/30/2023 13:24:21 Takotsubo cardiomyopathy 769022249 I51.81 Heart catherizat ion performed on 12/03/2017 revealed minimal coronary artery disease and LVEF estimated at 35-40%. Patient with shortness of breath as well as some lower extremity edema. Most recent echo ejection fraction 60%-65%. Hyperlipidemia 56083559 E78.00 On statin therapy. Managed by primary. Angina pectoris 19646000 0 I20.89 Patient with exertional dyspnea. Cardiac PET no evidence of epicardial disease however there is evidence of microvascu lar disease. Plan conservati ve management . Syncope 938120497 R55 No further syncope. Essential hypertension 14713840 I10 Patient with mildly elevated blood pressure [...] current meds for now. Electrocar diogram abnormal 524293366 R94.31 No EKG at today's visit. Cerebral meningioma 1891 [address] Reynolds Status post surgical resection of meningioma . Memory impairment 885523 006 R41.3 Worsening memory impairment since meningioma resection. Follows with neurology regarding this. Seizure disorder 2544335 02 G40.909 S/P seizure. Managed by neuro. No further seizures status post meningioma resection. Morbid obesity 091218815 E66.01 Healthy diet discussed. Difficulty swallowing 28 5521059 R13.10 Resolved. Dehydration 60226183 E86 .0 Counseled to increase her oral intake of water and decrease caffeine and alcohol. Near syncope 099684235 R 55 Patient with frequent lightheade dness [...] . Obstructiv e sleep apnea of adult [id number] 103 G47.33 She is currently on home [...] 08/28/2022 1 [place] Silvana F Payam [id number] Silvana Payam 08/28/2022 2 [employer] OPTIONS (MEDICARE SUPPLEMENT) Silvana F Villanueva Payam [id number] Silvana Payam 10/30/2022 1 [place] Silvana F Payam [id number] Silvana Payam 10/30/2022 2 [employer] OPTIONS (MEDICARE SUPPLEMENT) Silvana F Villanueva Payam [id number] Silvana Payam 06/12/2023 1 [place] Silvana F Payam [id number] Silvana Payam 06/12/2023 2 [employer] OPTIONS (MEDICARE SUPPLEMENT) Silvana Zehra Villanueva Payam [id number] Silvana Payam 07/28/2023 1 [place] Silvana F Payam [id number] Silvana Payam 07/28/2023 2 [employer] OPTIONS (MEDICARE SUPPLEMENT) Silvana F Villanueva Payam [id number] Silvana Payam 10/30/2023 1 [place] Silvana F Payam [id number] Silvana Payam 10/30/2023 2 [employer] OPTIONS (MEDICARE SUPPLEMENT) Silvana F Villanueva Payam [id number] Silvana Payam Notes Date Note Type Note [...] breathPt denies pedal edema RAY Guzman [address] [place] [address],[address], [address], [facility] 08/28/2022 14:58:26 10/30/2022 text/html Pt is here for t est follow up.Previous complaint of lightheadedness has improved since last visitPt denies chest pain or shortness of breath.Pt denies pedal edema. RAY Guzman [address] [place] [address], [phone], [facility] 10/30/2022 13:34:51 06/12/2023 text/html Patient is here today for 6 month follow up.Patient reports having shortness of breath.Patient reports having lightheadedness and dizziness sometimes.Patient denies chest pain.Patient denies pedal edema. Charly [place] MD [address] [place] [address], [phone], [facility] 06/12/2023 20:40:19 07/28/2023 text/html Pt is here for hospital follow up.Patient recently hospitalized with sepsis and Klebsiella pneumonia. She is improving. Urgent recent cultures were negative. Patient underwent cardiac PET recently as well as echocardiography. Results to be discussed in assessment and plan. Charly [place] MD [address] [place] [address], [place], [address], [facility] 07/28/2023 10:41:38 10/30/2023 text/html Patient is here today for 3 month follow up visitReports sob has improved.Denies chest pain.Average SBP 110s-120s and DBP 60s.No other complaints at this time. RAY Guzman [address] [place] [address],[address], [phone], [facility] 10/30/2023 13:24:09 OBGyn Episode No OBEpisode recorded.
--- OUTSIDE RECORDS SUMMARY | 2024-07-13 03:45 | XMS_ITS | Data Portability ---
Author Organization [place] [facility] [place] Address [address] [place] [address] Assessment Encounter Date Assessment Date Assessment LastModified [...] Plan: a. Discontinue clobetasol as advised by dentist attendant. b. Follow dentist attendant's recommendations for alternative creams. 7. Gastroesophageal reflux [...] None recorded. Lab culture, urine 2023 024 [email or web address] [facility], [address] [place] [address], [address], [address], 5 05:15:08 urinalysis, complete 2023 024 bsKlickSports [facility], [address] [place] [address], [facility] [address], [address], 5 05:15:04 Referral None recorded. Procedures None recorded. Surgeries None recorded. Imaging None recorded. Medication Orders tirzepatide (weight loss) 10 mg/0.5 mL subcutaneou s pen injector 2023 024 bschein [id number] [address], [address], [place], [address], 5 06:22:59 oxybutynin chloride ER 5 mg tablet,exte nded release 24 hr 2023 024 bschein [facility] [address], [address], [place], [address], 5 06:21:39 Estrace 0.01% (0.1 mg/gram) vaginal cream 2023 024 ANTHONY [id number] [address], [address], [place], [address], 4 13:11:38 metronidazo le 500 mg tablet 2023 024 ANTHONY [id number] [address], [address], [place], [address], 4 13:14:39 clobetasol 0.05 % scalp solution 2023 024 bschein [facility] [address], [address], [place], [address], 5 06:19:15 selenium sulfide 2.25 % shampoo 2023 024 bschein [id number] [address], [address], [place], [address], 5 06:19:36 nystatin 100,000 unit/gram topical cream 2023 024 bschein [id number] [address], [address], [place], [address], 5 06:19:59 clobetasol 0.05 % topical cream 07/23/ 2024 07/23/2 024 bschein [facility] [address], [address] [place], [address], 06:18:36 clobetasol 0.05 % topical gel 2023 024 bschein [facility] An[address], [address] [place], [address], 06:18:56 Patient TargetsNo targets recorded. Patient Instructions Encounter Date Encounter Id Patient Instructions Last Modified By Organization Details Last Modified Time 09/22/2023 [id number] epilepsy: care instructions bschein Not available 04/19/2024 [...] our office. Warm regards, Noe Camp MD Non Destructive Testing Supervisor [facility] Not available 09/22/2023 16:44:06 10/23/2023 [id number] atrophic vaginit is: care instructions bschein Not [...] 07:16:02 Date: Fri From: Dr. Noe Camp, Non Destructive Testing Supervisor, Family [facility] Dear [facility], Thank you for visiting today and discussing [...] you soon. Best regards, Dr. Noe Camp Non Destructive Testing Supervisor, Family Medicine Not available 10/23/2023 14:51:31 11/19/2023 [id number] atrophic vaginit is: care instructions bschein Not [...] should no longer be used; follow your dentist attendant's advice regarding alternative creams. - Maintain current [...] a target weight of 210-220 pounds by [place]. - General Health: - Your recent lab [...] you again soon. Sincerely, Dr. Noe Camp, Non Destructive Testing SupervisorCommunication Center Coordinator: Family Medicine Not available 11/19/2023 13:20:25 12/22/2023 [id number] sleep apnea: car e instructions bschein Not [...] negati ve normal Not Available [facility] [address] [place], [address], 10/24/2023 19:01:24 10/23/19 24 10/24/2023 SURES WAB(R ) ADVAN FLORIDALMA VAGIN ITIS PLUS, TMA alfredo species NOT DETECT ED not detect ed normal Not Available [facility] [place] [facility] [address] [place], [address], 10/24/2023 19:01:24 10/23/19 24 10/24/2023 SURES WAB(R [...] resul t. Not Available [facility] [place] [facility] [address], [place], [address], 10/24/2023 19:01:24 10/23/19 24 10/24/2023 SURES WAB(R ) ADVAN FLORIDALMA VAGIN ITIS PLUS, TMA trichomonas vaginalis (TV), tma NOT DETECT ED not detect ed normal Not Available [facility] [place] [facility] [address], [place], [address], 10/24/2023 19:01:24 10/23/19 24 10/24/2023 SURES WAB(R ) ADVAN FLORIDALMA VAGIN ITIS PLUS, TMA chlamydia trachomatis RNA, tma, urogenital NOT DETECT ED not detect ed normal Not Available [facility] [place] [facility] [address], [place], [address], 10/24/2023 19:01:24 10/23/19 24 10/24/2023 SURES WAB(R ) ADVAN FLORIDALMA VAGIN ITIS PLUS, TMA neisseria gonorrhoeae RNA, tma, urogenital NOT DETECT ED not detect ed normal For addit ional infor maykel gutierrez refer to https ://ed ucati on.qu lazarus [employer]/f aq/FA Q154 (This link is being provi ded for infor ida horn/ edgardo gupta purpo ses only. ) Not Available [facility] [place] [facility] [address], [place], [address], 10/24/2023 19:01:24 10/23/19 24 10/25/2023 URINA LYSIS , COMPL ETE color YELLOW yellow normal Not Available [facility] [place] [facility] [address], [place], [address], 10/25/2023 01:50:50 10/23/1910/2410/25/2023 URINA LYSIS , COMPL ETE appearance CLEAR clear normal Not Available [facility] [place] [facility] [address], [place], [address], 10/25/2023 01:50:50 10/23/1910/25/2023 URINA LYSIS , COMPL ETE specific gravity 1.013 1.001- 1.035 normal Not Available [facility] [place] [facility] [address], [place], [address], 10/25/2023 01:50:50 10/23/19 24 10/25/2023 URINA LYSIS , COMPL ETE pH 6.0 5.0-8. 0 normal Not Available [facility] [place] [facility] [address], [place], [address], 10/25/2023 01:50:50 10/23/19 24 10/25/2023 URINA LYSIS , COMPL ETE glucose NEGATI VE negati ve normal Not Available [facility] [place] [facility] [address], [place], [address], 10/25/2023 01:50:50 10/23/19 24 10/25/2023 URINA LYSIS , COMPL ETE bilirubin NEGATI VE negati ve normal Not Available [facility] [place] [facility] [address], [place], [address], 10/25/2023 01:50:50 10/23/19 24 10/25/2023 URINA LYSIS , COMPL ETE ketones NEGATI VE negati ve normal Not Available [facility] [place] [facility] [address], [place], [address], 10/25/2023 01:50:50 10/23/19 24 10/25/2023 URINA LYSIS , COMPL ETE occult blood 2+ negati ve abnormal Not Available [facility] [place] [facility] [address], [place], [address], 10/25/2023 01:50:50 10/23/19 24 10/25/2023 URINA LYSIS , COMPL ETE protein NEGATI VE negati ve normal Not Available [facility] [place] [facility] [address], [place], [address], 10/25/2023 01:50:50 10/23/19 24 10/25/2023 URINA LYSIS , COMPL ETE nitrite NEGATI VE negati ve normal Not Available [facility] [place] [facility] [address], [place], [address], 10/25/2023 01:50:50 10/23/19 24 10/25/2023 URINA LYSIS , COMPL ETE leukocyte esterase NEGATI VE negati ve normal Not Available [facility] [address], [place], [address], 10/25/2023 01:50:50 10/23/19 24 10/25/2023 URINA LYSIS , COMPL ETE WBC NONE SEEN /hpf < or = 5 normal Not Available [facility] [place] [facility] [address], [place], [address], 10/25/2023 01:50:50 10/23/19 24 10/25/2023 URINA LYSIS , COMPL ETE RBC 3-10 /hpf < or = 2 abnormal Not Available [facility] [place] [facility] [address], [place], [address], 10/25/2023 01:50:50 10/23/19 24 10/25/2023 URINA LYSIS , COMPL ETE squamous epithelial cells 0-5 /hpf < or = 5 Not Available [facility] [place] [facility] [address], [place], [address], 10/25/2023 01:50:50 10/23/19 24 10/25/2023 URINA LYSIS , COMPL ETE bacteria NONE SEEN /hpf none seen normal Not Available [facility] [address], [place], [address], 10/25/2023 01:50:50 10/23/19 24 10/25/2023 URINA LYSIS , COMPL ETE hyaline cast NONE SEEN /lpf none seen normal Not Available [facility] [place] [facility] [address], [place], [address], 10/25/2023 01:50:50 10/23/19 24 10/25/2023 URINA LYSIS , COMPL ETE note This urine was jessica zed for the prese nce of WBC, RBC, bacte tonie, casts , and other forme d eleme nts. Only those eleme nts seen were repor lucas. Not Available [facility] [place] [facility] [address], [place], [address], 10/25/2023 01:50:50 10/23/19 24 10/25/2023 CULTU RE, URINE , ROUTI NE culture, urine, routine SEE NOTE CULTU RE, URINE , ROUTI NE Micro Numbe r: [id number] Test Statu s: Final Speci men [...] port Tube. Not Available [facility] [place] [facility] [address], [place], [address], 10/25/2023 01:50:53 10/09/19 24 10/09/2023 DEXA No observ ation [facility] [address], [place], [address], 04/19/2024 04:39:48 10/14/19 24 10/09/2023 MAMMO , scree chuck, digit al, bilat eral No observ ation record ed. [facility] [address], [place], [address], 04/19/2024 04:39:53 10/15/19 24 10/15/2023 US, breas t, unila teral No observ ation record ed. [facility] [address], [place], [address], 04/19/2024 04:39:44 Result Notes None recorded. Problems Name Problem SNOMED Code Status Onset Date Resolution Date Notes Provider Name and Address Organization Details Recorded Time Morbid obesity 777773696 Active 2022 Not Available [facility] 4 18:10:59 Osteoarthri tis 209902794 Active 2020 Not Available [facility] 4 18:10:59 Hypertensiv e disorder 18864573 Active 2020 Not Available [facility] 4 18:10:59 Hypothyroid ism 80043760 Active 2020 Not Available [facility] 4 18:10:59 Gastroesoph ageal reflux disease 010130470 Active 2020 Not Available [facility] 4 18:10:59 Hyperlipide juany 80126394 Active 2020 Not Available [facility] 4 18:10:59 Essential tremor 400582338 Active 2020 Not Available [facility] 4 18:10:59 Benign meningioma 236408487 Active 2020 Not Available [facility] 4 18:10:59 Depressive disorder 79852532 Active 2020 Not Available [facility] 4 18:10:59 Seizure disorder 337559678 Active 2020 Not Available [facility] 4 18:10:59 Acute bronchitis 84823404 Active 2022 Not Available [facility] 4 18:10:59 Obesity 193101832 Active 2022 Not Available [facility] 4 18:10:59 Prediabetes 403263964 Active 2023 [facility] [address], [place], [address], [place] [facility] 4 13:09:55 Congestive heart failure 33768397 Active [address], [place], [address], [place] [facility] 4 13:06:49 Obstructive sleep apnea syndrome 02329359 Active [address], [place], [address], [place] [facility] 4 13:19:37 Vaginitis 05907405 Active [address], [place], [address], [place] [facility] 4 13:35:52 Atopic dermatitis 48266068 Active [address], [place], [address], [place] [facility] 4 15:30:53 Herpes zoster 8855527 Active [address], [place], [address], [place] [facility] 4 15:32:23 Pruritic rash 14708655 Active [address], [place], [address], [place] [facility] 4 15:34:37 Seborrheic keratosis 627081444 Active [address], [place], [address], [place] [facility] 4 15:39:14 Seborrheic dermatitis of scalp 213245957 Active 2023 [facility] [address], [place], [address], [place] [facility] 4 14:41:41 Acute cystitis 34155033 Active 2023 MD [facility] [address], [place], [address], [place] [facility] 4 14:47:31 Atrophic vaginitis 16686743 Active 2023 MD [facility] [address], [place], [address], [place] [facility] 4 15:18:29 Bacterial vaginosis 236935406 Active 2023 MD [facility] [address], [place], [address], [place] [facility] 4 15:18:43 Candidiasis of vagina 43133366 Active 2023 MD [facility] [address], [place], [address], [place] [facility] 4 15:18:49 Type 2 diabetes mellitus 41405171 Active 2023 [facility] [address], [place], [address], [place] [facility] 4 19:56:34 Overactive urinary bladder 877072169 Active 2023 MD [facility] [address], [place], [address], [place] [facility] 4 13:12:56 Intentional weight loss 928838300 Active 2023 Noe Camp MD [address], [place], [address], [place] [facility] 13:22:00 Problem Notes None recorded. Procedures Surgical History Date Name Laterality Status Provider Name and Address Organization Details Recorded Time 024 AWV completed MD [address], [place], [address], [place] [facility] 06/03/2023 13:30:05 023 AWV completed Jessika Sanders NP [address], [place], [address], [place] [facility] 04/23/2022 13:21:18 022 AWV completed MD [address], [place], [address], [place] [facility] 04/03/2021 15:13:15 021 AWV completed Henry Mullins [place] Brendan [facility] 01/23/2021 13:41:04 021 Knee Replacement completed Joaquin Akhtar [place] Brendan [facility] 10/03/2020 15:20:10 016 Knee Replacement completed Joaquin Cardona [facility] 10/03/2020 15:20:25 977 Cholecystectomy completed Joaquin Akhtar [place] Brendan [facility] 10/03/2020 15:19:41 Imaging Results Imaging Date Name Status LastModified by Organ atformerly [facility] Details LastModified Time 10/09/2023 DEXA completed [facility] [address], [place], [address], 04/19/2024 04:39:48 10/09/2023 MAMMO, screening, digital, bilateral completed bschein [facility] [address], [place], [address], 04/19/2024 04:39:53 10/15/2023 US, breast, unilateral completed bschein [facility] [address], [place], [address], 04/19/2024 04:39:44 Procedure Notes None recorded. Medical Equipment None Reported. Allergies Allergen ID Allergen Name Allergen Category Reaction Reaction Severity Criticality Documentation Date Start Date Code Code System Note Provider Name and Address Organization Details Recorded Time 5367 ciproflox acin medicatio n Not available Not available Not available 09/25/20222022 2551 RxNorm ISA [place] - [facility] [place] [facility] [place] 14:06:59 Medications Name Sig Start Date Stop [...] Available Not Available No t Available Intrinsi U68-Satjka 500 mcg-20 mg-800 mcg tablet Take 1 [...] Updated DateTime 4 162.56 cm 42.1 kg/m2 536696. 13 g 98.2 [degF] 95 % 95 % 73 /min 122 mm[Hg] 78 mm[Hg] Joaquin Hassan MD [facility] 4 15:53:36 Date Recorded Body height Oxygen saturation Oxygen saturation in Arterial blood by Pulse oximetry Body temperature Heart rate Systolic blood pressure Diastolic blood pressure Provider Name and Address Organization Details Last Updated DateTime 4 162.56 cm 90 % 90 % 98.6 [degF] 66 /min 118 mm[Hg] 70 mm[Hg] Nayeli Hassan MD [facility] 4 15:15:52 Date Recorded Body height Body mass index (BMI) Body weight Body temperature Oxygen saturation Oxygen saturation in Arterial blood by Pulse oximetry Systolic blood pressure Diastolic blood pressure Provider Name and Address Organization Details Last Updated DateTime 4 162.56 cm 41.5 kg/m2 970116. 35 g 97.4 [degF] 91 % 91 % 110 mm[Hg] 60 mm[Hg] Alonzo Hassan MD [facility] 4 14:11:19 Date Recorded Body height Body mass index (BMI) Body weight Oxygen saturation Oxygen saturation in Arterial blood by Pulse oximetry Body temperature Heart rate Systolic blood pressure Diastolic blood pressure Provider Name and Address Organization Details Last Updated DateTime 4 162.56 cm 41.2 kg/m2 064627. 17 g 92 % 92 % 98.1 [degF] 73 /min 110 mm[Hg] 58 mm[Hg] Renetta Hassan MD [facility] 4 13:01:35 Date Recorded Body height Body mass index (BMI) Body weight Body temperature Heart rate Oxygen saturation Oxygen saturation in Arterial blood by Pulse oximetry Systolic blood pressure Diastolic blood pressure Provider Name and Address Organization Details Last Updated DateTime 4 162.56 cm 42.1 kg/m2 287375. 13 g 98.3 [degF] 79 /min 94 % 94 % 102 mm[Hg] 60 mm[Hg] Alonzo Hassan MD [facility] 4 13:05:58 Social History Question Answer Notes LastModified by Organizat ion Details LastModified Time Tobacco Smoking Status Never Smoker ISA Welch MD [facility] 10/03/2020 15:17:48 Do You Have An [...] Anxious, Or Unable To Sleep At Night)? [id number] Information not available 04/03/2021 Sex: Unknown Functional [...] 22 completed Joaquin delaney [place] - [facility] 10/05/2021 15:10:39 Influenza, split virus, trivalent, [...] trivalent, PF 01/09/20 18 completed Not Available [facility] 04/29/2023 14:45:32 Influenza, high-dose, trivalent, PF 01/03/20 16 completed Not Available [facility] 04/29/2023 14:45:32 Influenza, split virus, trivalent, preservative 01/03/20 10 completed Not Available [facility] 04/29/2023 14:45:32 Influenza, high-dose, trivalent, PF 12/23/19 18 completed Not Available [facility] 04/29/2023 14:45:32 Influenza, split virus, trivalent, preservative 01/15/20 11 completed Not Available [facility] 04/29/2023 14:45:32 pneumococcal polysaccharide PPV23 01/23/20 10 completed Not Available [facility] 04/29/2023 14:45:32 pneumococcal polysaccharide PPV23 03/24/19 11 completed Not Available [facility] 04/29/2023 14:45:32 Influenza, high-dose, trivalent, PF 12/22/19 15 completed Not Available [facility] 04/29/2023 14:45:32 Influenza, split virus, trivalent, preservative 12/21/19 09 completed Not Available [facility] 04/29/2023 14:45:32 COVID-19, mRNA, LNP-S, PF, 100 mcg/0.5mL dose or 50 mcg/0.25mL dose 05/19/19 21 completed Not Available [facility] 04/29/2023 14:45:32 Influenza, high-dose, quadrivalent, PF 12/27/19 [address] completed MD [address], [place], [address], [place] - [facility] 12/27/2021 08:42:07 zoster recombinant 07/16/19 23 completed MD [address], [place], [address], [place] - [facility] 07/15/2022 21:37:09 Influenza, high-dose, quadrivalent, PF 12/28/19 23 completed Isauro Rao MD [address], [place], [address], [place] Brendan Hassan MD [facility] 12/29/2022 12:01:44 RSV, recombinant, protein subunit RSVpreF, adjuvant reconstituted, 0.5 mL, PF 12/28/19 23 completed Isauro Rao MD [address] [place] [address] [address], [place], [address], [place] Brendan Hassan MD [facility] 12/29/2022 12:01:44 COVID-19, mRNA, LNP-S, PF, 100 mcg/0.5mL dose or 50 mcg/0.25mL dose 01/24/20 21 completed ISA Welch MD [facility] 01/23/2021 14:19:53 Past Encounters Encounter ID Performer Location Encounter Start Date Encounter Closed Date Diagnosis/Indication Diagnosis SNOMED-CT Code Diagnosis ICD10 Code Diagnosis Note [id number] MD PRIME LACI Winslow [facility] [address] [place] [address] [place] [address] 10/03/2020 15:04:40 10/03/2020 16:00:19 Benign meningioma 068919436 D32.9 Continue with her antiseizur e medicine. Depressive disorder 5708 9007 F32.9 She fell onto depression after her daughter from opiate overdose. She is going to continue with paroxetine which she needs a refill for today. Essential tremor 1208625 09 G25.0 Currently on pramipexol e with change controls her essential tremor quite well. Gastroesop hageal reflux disease 506774744 K21.9 Well-contr olled on PPI currently Hyperlipidemia 68964019 E78.5 She does need a lipid panel lab obtained. Hypertensive disorder 38 850046 I10 We will check CBC CMP and TSH. Hypothyroidism 53030778 E03.9 Check a TSH. Osteoarthritis 070162545 M19.90 Tylenol as needed she is using her own home physical therapy regimen. Seizure disorder 8112414 02 G40.909 Currently on Lamictal from previous brain surgery Type 2 olivia betes mellitus 83651865 E11.9 Excellent control based on her last hemoglobin A1c. [id number] MD PRIME LACI Winslow [facility] Office [address] [place], [place] [address]Ant [address] 8 10/05/2020 10:18:00 10/05/2020 10:36:44 [id number] MD PRIME LACI Winslow OF [facility] Office [address] [place], [place] [address]Ant [address] [place] [id number] 8 10/20/2020 13:13:00 10/20/2020 15:35:18 Acute sinusitis 90189566 J01.90 start augmentin 875mg po bid for 5 days and dexamethas one 4 mg for 5 days Hyperlipidemia 86384306 E78.5 Start crestor Hypothyroidism 19517056 E03.9 TSH at target Type 2 olivia betes mellitus 50438539 E11.9 Excellent control based on her last hemoglobin A1c. Loose stool 880649338 R1 9.5 Check stool studies. [id number] MD PRIME LACI Winslow [facility] [address] [place], [place] [address]Ant [address] [place] [id number] 8 11/28/2020 16:37:31 11/28/2020 20:42:54 Hypertensive disorder 19331070 I10 At target Skin lesion 48790590 L98 .9 Will have this removed. [id number] MD PRIME LACI Winslow [facility] [address] [place], [place] [address]Ant [address] 8 01/12/2021 13:57:46 01/12/2021 15:04:15 Essential tremor 194101884 G25.0 Currently on pramipexol e. She went to neurologis t yesterday and was invreased to 3 times a day and 250 Gastroesop hageal reflux disease 520887289 K21.9 Well-contr olled on PPI currently Hyperlipidemia 41702249 E78.5 Start crestor Hypertensive disorder 38 393985 I10 At target Seizure disorder 6773182 02 G40.909 Currently on Lamictal from previous brain surgery Benign meningioma 667081 006 D32.9 Continue with her antiseizur e medicine. Pain of ear 228034852 H9 2.09 Concern of a recurrent meningioma . Will check a CT to r/o that as a source of the pain. Obstructiv e sleep apnea syndrome 57321299 G47.33 Has ANUSHA. She has not been using her CPAP because it bugs her. [id number] MD PRIME LACI Winslow OF [facility] [address] [place], [place] [address] [place] [address] 01/23/2021 13:33:20 01/23/2021 14:20:59 Gastroesophageal reflux disease 559635254 K21.9 Well-contr olled on PPI currently Hyperlipidemia 58148787 E78.5 Start crestor Hypertensive disorder 38 429067 I10 At target Hypothyroidism 29130282 E03.9 TSH at target Seizure disorder 9881286 02 G40.909 Currently on Lamictal from previous brain surgery Active or passive immunization 375988116 Z23 update COVID vax Obstructiv e sleep apnea syndrome 23499445 G47.33 Has ANUSHA. She has not been using her CPAP because it bugs her. [id number] MD PRIME LACI Winslow [facility] [address] [place] [address] [address] [place] [address] 02/06/2021 14:31:32 02/06/2021 15:27:11 Benign meningioma 251239257 D32.9 Continue with her antiseizur e medicine. Depressive disorder 0495 9007 F32.9 She fell onto depression after her daughter from opiate overdose. She is going to continue with paroxetine which she needs a refill for today. Gastroesop hageal reflux disease 781136135 K21.9 Well-contr olled on PPI currently Hyperlipidemia 98974000 E78.5 Start crestor Hypertensive disorder 38 768994 I10 At target Hypothyroidism 80690199 E03.9 TSH at target Seizure disorder 2375961 02 G40.909 Currently on Lamictal from previous brain surgery Screening mammography 24 461860 Z12.31 declined Colorectal cancer screening not done 9085662199 100 Z53.9 UTD last lower endo 2 years ago. Active or passive immunization 491605555 Z23 update COVID vax and flu 7735 MD PRIME LACI Miles OF [facility] [address] [place], [place] [address]Ant [address] [place] [address] 04/03/2021 13:59:39 04/03/2021 15:33:18 Adult health examination 359169727 Z00.00 Patient here for Medicare Annual Wellness visit. See above discussion Advance care planning 71 2666287 Z71.89 I have discussed with patient/PO A [...] patient is Full Code. Depression screening 171 415585 Z13.31 Negative PHQ9, re-assess annually Screening for cardiovascular system disease 311744034 Z13.6 Reviewed with patient BP trend in the office, discussed about aspirin use, healthy lifestyle modificati ons, mediterran an or DASH diet, low salt <2g daily. Time spent counseling 10 min. Screening for alcohol abuse 517364992 Z13.39 Alcohol screening performed and is negative for substance abuse. I did ask her to cut down 9276 MD PRIME LACI Winslow [facility] [address] [facility] [address] [place] [address] 05/15/2021 14:21:23 05/15/2021 15:19:01 Fatigue 19432349 R53.83 C/O fatigue stop am primidone temporaril y Obstructiv e sleep apnea syndrome 95398549 G47.33 She is using the Bipap and sleeps but it is uncomforta ble. Refer to sleep med here. 63475 MD PRIME LACI Winslow [facility] [address] [facility] [address] [place] [address] 06/07/2021 16:27:01 06/19/2021 17:11:34 Depressive disorder 08002558 F32.9 Currently on paroxetine . She is doing well on this, sleep is good. Essential tremor 7517375 09 G25.0 Currently on pramipexol e. Gastroesop hageal reflux disease 227072971 K21.9 Well-contr olled on PPI currently Hyperlipidemia 45214752 E78.5 On crestor. Diet discussed at length with patient. She is not able to exercise because her knee pain and balance problem. Hypertensive disorder 38 279443 I10 Patient is normotensi ve at home. Will not make any changes to her medication today. Hypothyroidism 54519800 E03.9 Last TSH was normal. On synthroid. Seizure disorder 2335189 02 G40.909 Currently on Lamictal from previous brain surgery History of total knee arthroplasty 5951375192 105 Z96.659 Patient is complainin g of having balance issues since her surgery. We will send her to physical therapy. Obstructiv e sleep apnea syndrome 31466905 G47.33 She is using the Bipap about 5 hours at night. Benign meningioma 844210 006 D32.9 Continue with her antiseizur e medicine. Her meningioma was removed without any difficulty and she has not had a seizure. Type 2 oliiva betes mellitus 62600119 E11.9 Excellent control based on her last hemoglobin A1c. Her hemoglobin A1c was 5.6. 01226 MD PRIME LACI Winslow OF [facility] [address] [place], [place] [address]Ant [address] [place] [address] 09/20/2021 15:15:16 09/20/2021 16:43:57 Essential tremor 604720279 G25.0 Currently on pramipexol e. Benign meningioma 719242 006 D32.9 Having an MRI needs lab Hyperlipidemia 70204677 E78.5 On crestor. Diet discussed at length with patient. She is not able to exercise because her knee pain and balance problem. Hypertensive disorder 38 997510 I10 Patient is normotensi ve at home. Will not make any changes to her medication today. Hypothyroidism 77206299 E03.9 Last TSH was normal. On synthroid. Seizure disorder 3557841 02 G40.909 Currently on Lamictal from previous brain surgery Candidiasis of vagina 72 532850 B37.3 83689 MD PRIME LACI Winslow OF [facility] [address] [place], [place] [address]Ant [address] [place] [address] 10/05/2021 13:19:20 10/05/2021 14:02:29 Administration of SARS-CoV-2 antigen vaccine 165811424 Z23 1st booster administer ed to patient. She can take tylenol as needed for discomfort . Candidiasis of vagina 72 659494 B37.3 Patient has been using Dial soap in her vagina. Skin is very dry and red. There is a thin odorless discharge. I recommende d that she stops using soap or use some kind of vaginal soap like summer's sandeep. Also start boric acid suppositor ies to help restore the pH. Intertrigo 48568140 L30. 4 Start power. Patient is very clean but she has a pendulous abdomen. Start nystatin powder. 30899 MD PRIME LACI Winslow OF [facility] [address] [place], [place] [address]Ant [address] [place] [address] 10/22/2021 16:17:52 10/22/2021 17:02:37 Dyspnea 846554607 R06.00 Patient has been experienci ng SOB with ambulation . She had a cardiologi [facility] t recently and was told her heart was ok, neverthele ss she seems winded after walking short distance. Candidiasis of vagina 72 778676 B37.3 Start using Boric Acid, no soap, and start fluconazol e for 6 months once per week. Hypertensive disorder 38 325248 I10 BP slightly above goal of < 130/90. Patient is normotensi ve at home. No changes to medication . 45317 MD PRIME LACI Miles OF [facility] [address] [place], [place] [address]Ant [address] [place] [address] 12/26/2021 12:57:22 12/26/2021 13:15:03 Administration of influenza vaccine 81419169 Z23 MD PRIME LACI Winslow OF [facility] [address] [place], [place] [address]Ant [address] [place] [address] 01/30/2022 14:10:45 01/30/2022 15:24:44 Fatigue 17702349 R53.83 Patient was advised to use a CPAP pillow to improve sleep quality. Paresthesia 91934259 R20 .2 Patient will start vitamin B12 and folate supplement . Probable hypoventil ation but will start B12 and folate. Gastroesop hageal reflux disease 775681237 K21.9 Well-contr olled on PPI currently. Depressive disorder 3548 9007 F32.9 Currently on paroxetine . She is doing well on this. Hypertensive disorder 38 204585 I10 Blood pressure at target. Active or passive immunization 352019511 Z23 Flu vaccine is up-to-date Screening for malignant neoplasm of breast 873027044 Z12.39 Order mammogram 51036 MD PRIME LACI Winslow [facility] [address] [facility] [address] [place] [address] 02/20/2022 14:26:28 02/20/2022 14:55:46 Acute left otitis media 040107495 H66.92 Start abx Hypertensive disorder 38 067421 I10 Increase coreg to 6.25 mg po bid Hyperlipidemia 33634810 E78.5 On crestor. Diet discussed at length with patient. She is not able to exercise because her knee pain and balance problem. 53830 TEJINDER Reed MD [facility] Formerly named [facility] [facility] [address] [place] [address] 04/23/2022 12:59:55 04/23/2022 13:26:13 Adult health examination 675272236 Z00.00 *Patient was screened for depression using [...] well an immunizati on schedule. Memory impairment 291449 006 R41.3 Patient has concerns about her [...] . PHQ-9 score is 6 Morbid obesity 517727699 E66.01 Patient to come back to discuss weight loss. 91396 MD PRIME LACI Miles [facility] [address] [place] [address] [address] [place] [address] 07/01/2022 13:44:03 07/01/2022 14:20:54 Acute bronchitis 48196754 J20.9 Acute, stable. Start treatment as below and continue supportive care at home. Patient was advised to RTC if symptoms worsen or do not improve in the next 3 days. Benign meningioma 658513 006 D32.9 Chronic, stable. She will continue with her antiseizur e medicine. Her meningioma was removed without any difficulty and she has not had a seizure. 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 Reviewed labs, last Hgb A1c was 5.6. Well-contr olled on current regimen. Seizure disorder 1993833 02 G40.909 Chronic, stable. She will continue with her antiseizur e medicine. Her meningioma was removed without any difficulty and she has not had a seizure. 89407 MD PRIME LACI Miles [facility] [address] [place], [place] [address]Ant [address] [place] [address] 07/15/2022 13:59:28 07/15/2022 14:30:58 Immunization due 539933975 Z28.39 Administer ed shingles vaccine. Polyuria 39612059 R35.89 New problem to us. She c/o of increased urination without drinking more fluids. She denies any dysuria, back pain, fever, chills, or any other associated symptoms at this time. Reviewed labs, last Hgb A1c was 5.6 and she does not take any diabetes medication . Ordered lab work. Hyperlipidemia 49073826 E78.5 Chronic, stable. She is currently on Rosuvastat in. Ordered lab work. Hypothyroidism 92645660 E03.9 Chronic, stable. She is currently on Levothyrox ine 25 mcg. Ordered lab work. Essential tremor 8215358 09 G25.0 Chronic, stable. She reports she will be taking part in a clinical research study w/ [employer] soon for her essential tremors. Follows w/ neurologis t. 27829 FRANDY WILLIAMSON [facility] [address] [place] [address] [address] [place] [address] 09/25/2022 13:54:12 09/25/2022 14:30:37 Mass of left breast 6346471094 9257842 N63.20 Patient c/o a lump under her left axilla which she felt 4 weeks ago but can no longer feel herself. She denies any pain, redness, drainage, or other symptoms with this. I am unable to palpate the lesion she is referring to on exam today.Refe rred to [facility] for breast cancer screening. 71388 FRANDY WILLIAMSON [facility] [address] [place], [place] [address]ROMAN [address] [place] [address] 10/11/2022 13:01:33 10/11/2022 13:29:47 Viral screening 479763887 Z11.52 Rapid COVID test negative, discussed results with patient. Acute bronchitis 4850432 2 J20.9 New problem. Start oral antibiotic s and albuterol inhaler and continue Benzonatat e/supporti ve care.Patie nt was advised to RTC if symptoms worsen or do not improve with treatment. 27728 TEJINDER Reed [facility] [address] [place] [address] [address] [place] [address] 12/18/2022 13:34:59 12/18/2022 14:36:00 Essential tremor 519165847 G25.[address] Steel in town. She should also follow with her neurologis t. Obesity 725761432 E66.9 We discussed about a weight loss [...] a week.Will come back for blood work. 61694 MD [facility]IME LACI [facility] [address] [place] [address] [address] [place] [address] 12/27/2022 14:40:52 12/27/2022 15:00:50 Active or passive immunization 632422113 Z23 Flu vaccine is up-to-date 89802 MD PRIME LACI Winslow OF [facility] Office [address] [place] [address] [address] [place] [address] 05/01/2023 13:17:37 05/01/2023 13:52:55 Hospital inpatient stay within past 30 days 6370709897 106 Z76.89 Admitted for dizziness and doing well now this has resolved. Essential tremor 6753283 09 G25.0 Currently on pramipexol e. This is working Benign meningioma 347795 006 D32.9 On lamictal for sz prophylaxi s Hyperlipidemia 84375766 E78.5 On crestor. Diet discussed at length with patient. She is not able to exercise because her knee pain and balance problem. Hypertensive disorder 38 942174 I10 At target Hypothyroidism 62616856 E03.9 Last TSH was normal. Seizure disorder 7374662 02 G40.909 Currently on Lamictal from previous brain surgery 65670 MD PRIME LACI Winslow OF [facility] Office [address] [place] [address] [facility] [address] [place] [address] 06/03/2023 12:58:20 06/03/2023 13:46:56 Adult health examination 269585580 Z00.00 Z13.31 Z71.89 Z13.39 Z13.6 A preventati [...] of baby aspirin. Advance care planning 71 7178884 Z71.89 Advance care planning was addressed during [...] minutes. Patient code status updated. Benign meningioma 571498 006 D32.9 On lamictal for sz prophylaxi s Depressive disorder 3548 9007 F32.9 Currently on paroxetine . She is doing well on this. Hyperlipidemia 29580607 E78.5 On crestor. Diet discussed at length with patient. She is not able to exercise because her knee pain and balance problem. Hypertensive disorder 38 622894 I10 At target Hypothyroidism 38431063 E03.9 Last TSH was normal. Seizure disorder 2238618 02 G40.909 Currently on Lamictal from previous brain surgery Prediabetes 813758905 R7 3.03 Check hgba1c Screening for malignant neoplasm of breast 215492056 Z12.39 Order mammogram for September Screening for malignant neoplasm of colon 009187311 Z12.11 order cologuard Screening for osteoporosis 832724886 Z13.820 Order Dexa Active or passive immunization 021578162 Z23 Flu vaccine is up-to-date 24624 MD PRIME LACI Winslow OF [facility] [address] [place] [address] [address] [place] [address] 07/24/2023 12:48:18 07/24/2023 13:47:36 Congestive heart failure 52149716 I50.9 ImprovedPl anning to see Dr. Wallace in the next week. Hyperlipidemia 58179710 E78.5 On crestor. Diet discussed at length with patient. She is not able to exercise because her knee pain and balance problem. Hypertensive disorder 38 256991 I10 At target Hypothyroidism 10474746 E03.9 Last TSH was normal. History of sepsis 397241 1743 00548 Z86.19 Likely originated for an invasive procedure she had cystoscopy .She is doing well now no SOB. Morbid obesity 969312463 E66.01 diet and exercise d/w pt. Obstructiv e sleep apnea syndrome 80815641 G47.33 She is using the Bipap about 5 hours at night. Vaginitis 70646447 N76.0 02210 MD PRIME CRISYT Winslow [facility] [address] [place], [place] [address]Ant [address] [place] [address] 09/22/2023 15:44:50 09/22/2023 16:50:00 Hypertensive disorder 00845541 I10 At target Hyperlipidemia 96883713 E78.5 On crestor. Diet discussed at length with patient. She is not able to exercise because her knee pain and balance problem. Seizure disorder 0350681 02 G40.909 Currently on Lamictal from previous brain surgery Morbid obesity 135510813 E66.01 Diet and exercise d/w pt. Hypothyroidism 44205619 E03.9 Last TSH was normal. Depressive disorder 3548 9007 F32.9 Currently on paroxetine . She is doing well on this. Prediabetes 644683912 R7 3.03 A1c 5.9 Diet and exercise d/[place]. [address] MD PRIME LACI Miles [facility] [address] [place] [address] [address] [place] [address] 10/14/2023 14:51:08 10/14/2023 15:46:24 Pruritic rash 48939608 L28.2 NEW problem Back of neck.- Plan: Prescribe topical steroid cream for the neck rash, to be applied twice daily. Advise the patient to follow up if the rash does not improve within a few days. Seborrheic keratosis 394 501134 L82.1 NEW problem Plan: Order steroid solution for symptom relief. Instruct the patient to apply the solution BID and to follow up if symptoms do not improve. 86775 MD PRIME LACI Winslow [facility] [address] [place] [address] [address] [place] [address] 10/23/2023 13:50:30 10/23/2023 15:26:02 Essential tremor 642873258 G25.0 Currently on pramipexol e. This is working Hyperlipidemia 99570127 E78.5 On crestor. Diet discussed at length with patient. She is not able to exercise because her knee pain and balance problem. Hypertensive disorder 38 228994 I10 At target Hypothyroidism 83025051 E03.9 Last TSH was normal. Morbid obesity 267356330 E66.01 Diet and exercise d/w pt. Seizure disorder 6901357 02 G40.909 Currently on Lamictal from previous brain surgery Congestive heart failure 55984413 I50.9 ImprovedPl anning to see Dr. Wallace in the next week. Screening for malignant neoplasm of breast 043405643 Z12.39 Order mammogram for September Screening for malignant neoplasm of colon 286550311 Z12.11 Cologuard neg Screening for osteoporosis 656005415 Z13.820 Osteopenia cont with supplement al calcium Seborrheic dermatitis of scalp 499804268 L21.0 Improved Acute cystitis 61930997 N30.01 Culture urine Atrophic vaginitis 79062 000 N95.2 estrace Bacterial vaginosis 4197 06928 N76.0 flagyl Candidiasis of vagina 72 331661 B37.31 nystatin 11722 Noe Camp MD PRIME MD [facility] [address] [place] [address] [address] 11/19/2023 12:51:09 11/19/2023 13:22:09 Depressive disorder 80143120 F32.9 Currently on paroxetine . She is doing well on this. Essential tremor 0320115 09 G25.0 Currently on pramipexol e. This is working Hyperlipidemia 07021529 E78.5 On crestor. Diet discussed at length with patient. She is not able to exercise because her knee pain and balance problem. Hypertensive disorder 38 767159 I10 At target Hypothyroidism 85037500 E03.9 Last TSH was normal. Morbid obesity 037016974 E66.01 Diet and exercise d/w pt.Cont with tirzepetid e 2.5 sc q weekm Type 2 olivia betes mellitus 90803495 E11.9 Excellent control based on her last hemoglobin A1c. Her hemoglobin A1c was 5.6. Atrophic vaginitis 98736 000 N95.2 Stopped the estradiol and the bleeding has resolved. Overactive urinary bladder 465153495 N32.81 Start oxybutinin 16981 MD PRIME GUSTAVO Winslow [facility] Formerly named [facility] [facility] [address] [place] [address] 12/22/2023 12:59:14 12/22/2023 13:24:21 Assisted living facility patient [id number] 5201653 Z76.89 [facility] Hypertensive disorder 38 465071 I10 At target Seizure disorder 6165895 02 G40.909 Currently on Lamictal from previous brain surgery Obstructiv e sleep apnea syndrome 27011781 G47.33 She is using the Bipap about 5 hours at night. Type 2 olivia betes mellitus 67122482 E11.9 Excellent control based on her last hemoglobin A1c. Her hemoglobin A1c was 5.6. Intentiona l weight loss 187231028 R63.8 increase to 5 mg Morbid obesity 386100837 E66.01 Diet and exercise d/w pt.Cont with [...] 09/22/2023 1 [place] Silvana Shahid Payam [id number] Silvana Shahid Payam 09/22/2023 2 [employer] OPTIONS (MEDICARE SUPPLEMENT) Silvana Pringlezier Payam [id number] Silvana Shahid Payam 10/14/2023 1 [place] Silvana Shahid Payam [id number] Silvana Zehra Payam 10/14/2023 2 [employer] HE[employer] OPTIONS (MEDICARE SUPPLEMENT) Silvana Prniglezier Payam [id number] Silvana Zehra Payam 10/23/2023 1 [place] Silvana Shahid Payam [id number] Silvana Zehra Payam 10/23/2023 2 [employer] OPTIONS (MEDICARE SUPPLEMENT) Silvana Shahid Villanueva Payam [id number] Silvana Zehra Payam 11/19/2023 1 [place] Silvana Shahid Payam [id number] Silvana Zehra Payam 11/19/2023 2 [employer] OPTIONS (MEDICARE SUPPLEMENT) Silvana Hare [id number] Silvana Hare 12/22/2023 1 [place] Silvana Hare [id number] Silvana Hare 12/22/[address] [facility] HEALTHCARE OPTIONS (MEDICARE SUPPLEMENT) Silvana Hare [id number] Silvana Hare Notes Date Note Type Note [...] commit to it. Noe Camp MD [address] [facility] [address], [place], [address], [facility] 09/22/2023 16:46:28 10/14/2023 text/html Chief Complaint: [...] both shingles vaccinations. Isauro Rao MD [address] [facility] [address], [place], [address], [facility] - Prime [facility] 10/20/2023 07:23:19 10/23/2023 text/html he patient, [...] increased bleeding, possibly external. Noe Camp MD [address], [place], [address], [facility] - [facility] 10/23/2023 15:21:25 11/19/2023 text/html The patient repo [...] which has calmed down after following their dentist attendant's advice to limit its use to two [...] continuing the tirzepatide medication. Noe Camp MD Formerly named [facility] [facility] [address], [place], [address], [facility] - [facility] 11/19/2023 13:20:48 12/22/2023 text/html To thanh [facility] eldawy Noe Camp MD Formerly named [facility] [facility] [address], [place], [address], [facility] - [facility] 12/22/2023 13:23:12 OBGyn Episode No OBEpisode recorded.
--- OUTSIDE RECORDS SUMMARY | 2024-07-13 03:46 | XMS_ITS | Clinical Summary ---
Author Organization [facility] Address [address] [place] [address] Care Team Providers Care Still Pump Operator Name Role Phone Jose Norton MD Primary Care Provider [phone] Allergies Active Allergy Reactions Criticality Noted Date [...] Type Department Care Team Description 05/13/2024 Abstract [facility] [address] [place] [address] Robe Mendoza MA 05/12/2024 Orders Only [facility] [address] [facility], [address] [place] [address] Sadie Villasenor MD 05/05/2024 Telephone [facility] THREE [facility], [facility] [address] [place] [address] Sadie Villasenor MD Blood Pressure from Last 3 Months Family History Medical [...] Comments Blood Pressure 112/70 02/13/2024 11:49 AM PROJECT PROGRAM MANAGER Pulse 71 02/13/2024 11:49 AM PROJECT PROGRAM MANAGER Temperature - - Respiratory Rate - - Oxygen Saturation 91% 02/13/2024 11: 49 AM PROJECT PROGRAM MANAGER Inhaled Oxygen Concentration - - Weight 112.2 kg (247 lb 6.4 oz) 024 11:49 AM PROJECT PROGRAM MANAGER Height 162.6 cm (5' 4 ) 02/13/2024 11:4 9 AM PROJECT PROGRAM MANAGER Body Mass Index 42.47 02/13/2024 11:49 AM PROJECT PROGRAM MANAGER Plan of Treatment Upcoming Encounters Date Type Department Care Team (Late st Contact Info) Description 08/24/2024 1:00 PM CDT Office Visit [facility] [address] [facility], [address] [place] [address] Monet Beltran MD [address] [place] [address] 09/03/2024 12:00 PM CDT Office Visit [facility] [address] Sadie Villasenor MD [address] [facility] [address] [place], [place] [id number] Health Maintenance Due Date Last Done Comments DTaP, Tdap and Td Vaccines ( 1 - Tdap) 1961 Pneumococcal Vaccine: 50+ Ye ars (1 of 1 - PCV) 1992 Zoster Vaccines (1 of 2) 1992 Annual Medicare Wellness Visit 11/03/2007 Dexa Scan (General) 11/03/2007 RSV Immunization or 60+ Years (1 - 1-dose 75+ series) 2017 COVID-19 Vaccine (1 - 2023-2 5 season) 2023 PHQ-2 (Physician [place]) 03/24/2024 Meningococcal B Vaccine Aged Out No [...] Result from Last 3 Months Insurance MEDICARE [facility] Care Teams Still Pump Operator Relationship Specialty Start Date End Date Jose Norton MD [address] [place] [address] PCP - General FAMILY PRACTICE 02/13/24
--- OUTSIDE RECORDS SUMMARY | 2024-07-13 03:46 | XMS_ITS | Data Portability ---
Author Organization [place] - [employer], [facility], [facility] Address [address] [place] [address] Care Team Providers Care Procurement Clerk Name Role Phone DEBI MATOS Primary Care Provider KARAN YAP Referring Provider ANN-MARIE KLINE Referring Provider [phone] BRENDA PROCTOR OTHER SANTA RUBIO OTHER JOSE BROWNE Primary Care Provider [phone] Assessment Encounter Date Assessment Date Assessment LastModified [...] Care Coordination (not separately reported) Additional notes: [email or web address] Not available 08/12/2023 16:50:23 09/30/2023 09/30/2023 A [...] Care Coordination (not separately reported) Additional notes: [email or web address] Not available 09/30/2023 14:03:40 11/26/2023 11/26/2023 A [...] None recorded. Lab respiratory allergen panel - [facility] 2023 024 [facility], [address] [place], [address], 4 04:34:48 CBC 2023 024 G[facility]POWDER [employer] [facility], [address], [place], [address], 4 04:34:56 vitamin B12 2014 015 kalyan smith [facility], [address] [place], [address], 5 10:40:49 insulin like growth factor 1 (igf-I) [address] [facility], [address], [place], [address], 5 10:40:49 cortisol, free 24-hour urine lc/ms/ms [address] [facility], [address], [place], [address], 5 10:40:49 comprehensi ve metabolic panel [address], [address], [place], [address], 5 10:40:49 T4 free [address], [address], [place], [address], 5 10:40:49 thyroid stimulating hormone (TSH) [address], [address] [place], [address], 5 10:40:49 venipunctur e 1 [address], [address], [place], [address], 5 10:40:49 Referral None recorded. Procedures noninvasive ear or pulse oximetry by continuous overnight monitoring (PROC) 2023 024 ANTHONY Not available 13:19:27 polysomnogr aphy, split night (PROC) - split night with bipap titration 2023 024 [email or web address] Ree Hairston MD, [address] [facility] [address], [place], [address], 09:24:04 Surgeries None recorded. Imaging CT, chest, w/o contrast 2023 024 [facility], [address], [place], [address], 4 09:19:53 Medication Orders codeine 10 mg-guaifene sin 100 mg/5 mL oral liquid 2014 015 [email or web address] Not available 5 16:16:12 Patient TargetsNo targets recorded. Patient Instructions Encounter Date Encounter Id Patient Instructions Last Modified By Organization Details Last Modified Time 08/12/2023 [id number] maggy's thyroiditis: care instructions [email or web address] Not available 08/12/2023 16:49:24 pneumonia: care instructions Not available 08/12/2023 16:49:24 sleep apnea: car e instructions [email or web address] Not available 08/12/2023 16:49:24 -Outside records from patient's hospitalization at [facility] reviewed in detail as well as records in [place] from primary care and cardiology reviewed -Please note: This note was completed using a voice recognition software. All reasonable attempts have been made to correct errors, however; any typographical, unanticipated grammatical, syntax, homophones and other interpretative errors are unintentional. Please disregard these errors. [email or web address] Not available 08/12/2023 16:51:33 09/30/2023 [id number] epworth sleepine ss scale* [email or web address] Not available 09/30/2023 14:07:22 complete PFT w/ post bronchodilator spirometry* G[facility]DER Not available 02/01/2024 04:21:33 -Outside records from patient's hospitalization at [facility] reviewed in detail as well as records in [place] from primary care and cardiology reviewed -Please note: This note was completed using a voice recognition software. All reasonable attempts have been made to correct errors, however; any typographical, unanticipated grammatical, syntax, homophones and other interpretative errors are unintentional. Please disregard these errors. Not available 09/29/2023 18:37:41 11/26/2023 [id number] high cholesterol : care instructions Not available 11/26/2023 12:15:02 -Outside records from patient's hospitalization at [facility] reviewed in detail as well as records in [place] from primary care and cardiology reviewed -Please note: This note was completed using a voice recognition software. All reasonable attempts have been made to correct errors, however; any typographical, unanticipated grammatical, syntax, homophones and other interpretative errors are unintentional. Please disregard these errors. [email or web address] Not available 11/26/2023 01:14:04 Reason for Referral None Reported. Results Created Date Observation Date Name Description Value Unit Range Abnormal Flag Note LastModifiedBy Organization Detail LastModifiedTime 10/21/19 15 10/28/2014 CMP, serum or plasm a glucose 105 mg/dL 65-99 high Fasti ng refer ence inter ricky Not Available [facility] [address] [place], [address], 11/17/2014 15:37:23 10/21/19 15 10/28/2014 CMP, serum or plasm a urea nitrogen (BUN) 13 mg/dL 7-25 Not Available [facility] [address], [place], [address], 11/17/2014 15:37:23 10/21/19 15 10/28/2014 CMP, serum or plasm a creatinine 0.64 mg/dL 0.60-0 .93 For patie nts >49 years of age, the refer ence limit for Creat inine is appro ximat jerson 13% highe r for peopl e ident ified as Afric an-Am marimar n. Not Available [facility] [address], [place], [address], 11/17/2014 15:37:23 10/21/19 15 10/28/2014 CMP, serum or plasm a eGFR non-afr. slovak 90 mL/mi n/1.7 3m2 > or = 60 Not Available [facility] [address] [place], [address], 11/17/2014 15:37:23 10/21/19 15 10/28/2014 CMP, serum or plasm a eGFR 104 mL/mi n/1.7 3m2 > or = 60 Not Available [facility] [address] [place], [place] [address]y [address] [place], [address], 11/17/2014 15:37:23 10/21/19 15 10/28/2014 CMP, serum or plasm a BUN/creatini ne ratio NOT APPLIC ABLE (calc ) 6-22 Not Available [facility] [address] [place], [place] [address] [address] [place], [address], 11/17/2014 15:37:23 10/21/19 15 10/28/2014 CMP, serum or plasm a sodium 141 mmol/ L 135-14 6 Not Available [facility] [address] [place], [place] [address] [address] [place], [address], 11/17/2014 15:37:23 10/21/19 15 10/28/2014 CMP, serum or plasm a potassium 3.8 mmol/ L 3.5-5. 3 Not Available [facility] [address] [place], [place] [address] [address] [place], [address], 11/17/2014 15:37:23 10/21/19 15 10/28/2014 CMP, serum or plasm a chloride 103 mmol/ L 98-110 Not Available [facility] [address] [place], [place] [address] [address] [place], [address], 11/17/2014 15:37:23 10/21/19 15 10/28/2014 CMP, serum or plasm a carbon dioxide 27 mmol/ L 19-30 Not Available [facility] [address] [place], [place] [address] [address] [place], [address], 11/17/2014 15:37:23 10/21/19 15 10/28/2014 CMP, serum or plasm a calcium 9.6 mg/dL 8.6-10 .4 Not Available [facility] [address] [place] [address], [place], [address], 11/17/2014 15:37:23 10/21/19 15 10/28/2014 CMP, serum or plasm a protein, total 6.5 g/dL 6.1-8. 1 Not Available [facility] [address] [place], [place] [address], [place], [address], 11/17/2014 15:37:23 10/21/19 15 10/28/2014 CMP, serum or plasm a albumin 4.2 g/dL 3.6-5. 1 Not Available [facility] [address] [place], [place] [address] [address] [place], [address], 11/17/2014 15:37:23 10/21/19 15 10/28/2014 CMP, serum or plasm a globulin 2.3 g/dL_ (calc ) 1.9-3. 7 Not Available [facility] [address] [place], [place] [address] [address] [place], [address], 11/17/2014 15:37:23 10/21/19 15 10/28/2014 CMP, serum or plasm a albumin/glob ulin ratio 1.8 (calc ) 1.0-2. 5 Not Available [facility] [address] [place], [place] [address], [place], [address], 11/17/2014 15:37:23 10/21/19 15 10/28/2014 CMP, serum or plasm a bilirubin, total 0.5 mg/dL 0.2-1. 2 Not Available [facility] [address] [place], [place] [address], [place], [address], 11/17/2014 15:37:23 10/21/19 15 10/28/2014 CMP, serum or plasm a alkaline phosphatase 83 U/L 33-130 Not Available [facility] [address] [place] [address] [address] [place], [address], 11/17/2014 15:37:23 10/21/19 15 10/28/2014 CMP, serum or plasm a AST 18 U/L 10-35 Not Available [facility] [address] [place] [address] [address] [place], [address], 11/17/2014 15:37:23 10/21/19 15 10/28/2014 CMP, serum or plasm a ALT 16 U/L 6-29 Not Available [facility] [address] [place] [address], [address], 11/17/2014 15:37:23 10/21/19 15 10/28/2014 T4, free, serum T4, free 1.0 NG/dL 0.8-1. 8 Not Available [facility] [address] [place] [address], [address], 11/17/2014 15:37:24 10/21/19 15 10/28/2014 TSH, serum or plasm a TSH 2.43 mIU/L 0.40-4 .50 Not Available [facility] [address] [place] [address], [address], 11/17/2014 15:37:25 10/21/19 15 10/28/2014 vitam in B12, serum vitamin B12 715 pg/mL 200-11 00 REPOR T COMME NT: FASTI NG:NO Not Available [facility] [address] [place] [address] [address] [facility], [place], [address], 11/17/2014 15:37:26 10/21/19 15 10/28/2014 igf-1 (insu nuzhat gamez growt h facto r), serum igf I, lc/MS 129 NG/mL 34-245 Not Available [facility] [address] [facility] [place], [address], 11/17/2014 15:37:27 10/21/19 15 10/28/2014 igf-1 (insu katerine-l franco growt h facto r), serum Z score (female) 0.4 SD -2.0 - +2.0 This test was julietel dom and its perfo rmanc e mario cteri stics have been deter mined by Thierry Perez . Perfo rmanc e mario cteri stics refer to the jessica tical perfo rmanc e of the test. Not Available [facility] [address] [place], [address], 11/17/2014 15:37:27 10/21/19 15 10/28/2014 corti miah, free, 24-ho ur urine total volume 1000 mL Not Available [facility] [address] [place], [address], 11/17/2014 15:37:28 10/21/19 15 10/28/2014 corti miah, free, 24-ho ur urine cortisol, free, urine 17.8 mcg/2 4_h 4.0-50 .0 Jessica sis perfo rmed by Kimberlyn Arriaga Spect romet ry Not Available [facility] [address] [place], [address], 11/17/2014 15:37:28 10/21/19 15 10/28/2014 corti miah, free, 24-ho ur urine creatinine, urine 1.14 g/24_ h 0.63-2 .50 Not Available [facility] [address] [place], [address], 11/17/2014 15:37:28 10/24/19 24 10/25/2023 CBC WITH DIFFE RENTI AL/PL ATELE T WBC 5.1 x10e3 /uL 3.4-10 .8 normal Not Available [facility] ([facility]) [address] [facility], [place], [address], 10/25/2023 06:13:26 10/24/19 24 10/25/2023 CBC WITH DIFFE RENTI AL/PL ATELE T RBC 4.59 x10e6 /uL 3.77-5 .28 normal Not Available [facility] ([facility]) [address] [facility], [place], [address], 10/25/2023 06:13:26 10/24/19 24 10/25/2023 CBC WITH DIFFE RENTI AL/PL ATELE T hemoglobin 14.6 g/dL 11.1-1 5.9 normal Not Available [facility] ([facility]) [address] [facility], [place], [address], 10/25/2023 06:13:26 10/24/19 24 10/25/2023 CBC WITH DIFFE RENTI AL/PL ATELE T hematocrit 44.1 % 34.0-4 6.6 normal Not Available [facility] ([facility]) [address] [facility], [place], [address], 10/25/2023 06:13:26 10/24/19 24 10/25/2023 CBC WITH DIFFE RENTI AL/PL ATELE T MCV 96 fL 79-97 normal Not Available [facility] ([facility]) [address] [place], [address], 10/25/2023 06:13:26 10/24/1910/25/2023 CBC WITH DIFFE RENTI AL/PL ATELE T MCH 31.8 pg 26.6-3 3.0 normal Not Available [facility] ([facility]) [address] [place], [address], 10/25/2023 06:13:26 10/24/19 24 10/25/2023 CBC WITH DIFFE RENTI AL/PL ATELE T MCHC 33.1 g/dL 31.5-3 5.7 normal Not Available [facility] ([facility]) [address] [facility], [place], [address], 10/25/2023 06:13:26 10/24/19 24 10/25/2023 CBC WITH DIFFE RENTI AL/PL ATELE T RDW 13.4 % 11.7-1 5.4 Not Available [facility] ([facility]) [address] [facility], [place], [address], 10/25/2023 06:13:26 10/24/19 24 10/25/2023 CBC WITH DIFFE RENTI AL/PL ATELE T platelets 251 x10e3 /uL 150-45 0 normal Not Available [facility] ([facility]) [address] [facility], [place], [address], 10/25/2023 06:13:26 10/24/19 24 10/25/2023 CBC WITH DIFFE RENTI AL/PL ATELE T neutrophils 58 % not estab. normal Not Available [facility] ([facility]) [address] [facility], [place], [address], 10/25/2023 06:13:26 10/24/19 24 10/25/2023 CBC WITH DIFFE RENTI AL/PL ATELE T lymphs 30 % not estab. normal Not Available [facility] ([facility]) [address] [place], [address], 10/25/2023 06:13:26 10/24/19 24 10/25/2023 CBC WITH DIFFE RENTI AL/PL ATELE T monocytes 9 % not estab. normal Not Available [facility] ([facility]) [address] [place], [address], 10/25/2023 06:13:26 10/24/19 24 10/25/2023 CBC WITH DIFFE RENTI AL/PL ATELE T eos 2 % not estab. normal Not Available [facility] ([facility]) [address] [place], [address], 10/25/2023 06:13:26 10/24/19 24 10/25/2023 CBC WITH DIFFE RENTI AL/PL ATELE T basos 1 % not estab. normal Not Available [facility] ([facility]) [address] [place], [address], 10/25/2023 06:13:26 10/24/1910/25/2023 CBC WITH DIFFE RENTI AL/PL ATELE T neutrophils (absolute) 3.0 x10e3 /uL 1.4-7. 0 normal Not Available [facility] ([facility]) [address] [place], [address], 10/25/2023 06:13:26 10/24/19 24 10/25/2023 CBC WITH DIFFE RENTI AL/PL ATELE T lymphs (absolute) 1.5 x10e3 /uL 0.7-3. 1 normal Not Available [facility] ([facility]) [address] [place], [address], 10/25/2023 06:13:26 10/24/19 24 10/25/2023 CBC WITH DIFFE RENTI AL/PL ATELE T monocytes(ab solute) 0.5 x10e3 /uL 0.1-0. 9 normal Not Available [facility] ([facility]) [address] [place], [address], 10/25/2023 06:13:26 10/24/1910/25/2023 CBC WITH DIFFE RENTI AL/PL ATELE T eos (absolute) 0.1 x10e3 /uL 0.0-0. 4 normal Not Available [facility] ([facility]) [address] [place], [address], 10/25/2023 06:13:26 10/24/19 24 10/25/2023 CBC WITH DIFFE RENTI AL/PL ATELE T baso (absolute) 0.0 x10e3 /uL 0.0-0. 2 normal Not Available [facility] ([facility]) [address] [facility], [place], [address], 10/25/2023 06:13:26 10/24/19 24 10/25/2023 CBC WITH DIFFE RENTI AL/PL ATELE T immature granulocytes 0 % not estab. Not Available [facility] ([facility]) [address] [facility], [place], [address], 10/25/2023 06:13:26 10/24/19 24 10/25/2023 CBC WITH DIFFE RENTI AL/PL ATELE T immature grans (abs) 0.0 x10e3 /uL 0.0-0. 1 Not Available [facility] ([facility]) [address] [facility], [place], [address], 10/25/2023 06:13:26 10/24/19 24 10/24/2023 ABN OPTIO [...] follo w-up. Not Available [facility] ([facility]) [address] [facility], [place], [address], 10/25/2023 06:13:27 08/12/19 24 07/20/2023 XR, chest No observ ation record ed. Not Available 2023 09:29:45 08/12/19 24 07/16/2023 CT, angio gram, chest , w/ contr ast No observ ation record ed. Not Available 2023 09:31:06 08/12/19 24 07/16/2023 XR, chest No observ ation record ed. [email or web address] Not Available 2023 09:33:01 08/14/19 24 07/24/2016 polys omnog salty , split night (PROC ) No observ ation record ed. [facility] [address], [place], [address], 10/21/2023 09:24:03 09/30/19 24 09/12/2023 CT, chest , w/o contr ast No observ ation record ed. [place] [id number] [facility] [address], [place], [address], 09/30/2023 09:19:58 10/01/19 24 09/30/2023 nonin vasiv e ear or pulse oxime try by claudio holleyn ight monit oring (PROC ) No observ ation record ed. [email or web address] Not Available 10/01 17:16:45 10/02/19 24 09/30/2023 CPAP compl iance * No observ ation record ed. [email or web address] Not Available 2023 19:12:09 11/10/19 6 minut e walk test* No observ ation record ed. BARCODE Not Available 2023 15:29:33 11/25/19 24 11/25/2023 compl ete PFT w/ post [facility] hodil ator graciela metry * No observ ation record ed. [email or web address] Not Available 2023 12:57:46 Result Notes None recorded. Problems Name Problem SNOMED Code Status Onset Date Resolution Date Notes Provider Name and Address Organization Details Recorded Time Obstructive sleep apnea syndrome 11371963 Active 2023 TAMIKO SRIVASTAVA APRN [address], [place], [address], [facility] - [facility], [facility] 13:49:21 Bacteremia caused by Gram-negati ve bacteria 153173734648 Active 2023 TAMIKO SRIVASTAVA APRN [address], [place], [address], [facility], [facility] 4 15:57:25 Pneumonia 851896971 Active 2023 TAMIKO SRIVASTAVA APRN [address], [place], [address], [facility], [facility] 4 15:57:32 Morbid obesity 977756416 Active 2023 TAMIKO SRIVASTAVA APRN [address], [place], [address], [facility], [facility] 4 15:57:40 Maggy thyroiditis 29302991 Active 2023 TAMIKO SRIVASTAVA APRN [address], [place], [address], [facility], [facility] 4 15:58:49 Dyspnea 257604516 Active 2023 TAMIKO SRIVASTAVA APRN [address], [place], [address], [facility], [facility] 4 15:59:04 Fatigue 62523749 Active MD Antoine Benitez [address], [place], [address], [facility], [facility] 5 16:16:11 Abnormal weight gain 329322436 Active MD Antoine Benitez [address], [place], [address], [facility], [facility] 5 12:48:55 Macrocytosi s 648820753 Active MD Antoine Benitez [address], [place], [address], [facility], [facility] 5 12:48:55 Tremor 72952069 Active MD Antoine Benitez [address], [place], [address], [place] [facility] 5 12:48:55 Bronchitis [id number] Jonel Kline MD [address], [place], [address], [facility], [facility] 5 16:16:12 Pure hypercholes terolemia [id number] Jonel Kline MD [address], [place], [address], [facility], [facility] 5 16:16:12 Obesity 078500544 Jonel Kline MD [address], [place], [address], [facility], [facility] 5 16:16:12 Benign essential hypertensio n [id number] Jonel Kline MD [address], [place], [address], [facility], [facility] 5 16:16:12 Problem Notes None recorded. Procedures Surgical History Date Name Laterality Status Provider Name and Address Organization Details Recorded Time Cholecystectomy completed [facility] 10/20/2014 11:40:37 Joint replacement, Knee completed [facility] 10/20/2014 11:40:37 Other completed [facility] 10/20/2014 11:40:37 Other completed [facility] 10/20/2014 11:40:37 Imaging Results Imaging Date Name Status LastModified by Organization Details LastModified Time 07/20/2023 XR, chest completed Information no t available 08/12/2023 09:29:45 07/16/2023 CT, angiogram, chest, w/ contrast completed Information not available 08/12/2023 09:31:06 07/16/2023 XR, chest completed Information no t available 08/12/2023 09:33:01 07/24/2016 polysomnography, split night (PROC) completed [facility] [address], [place], [address], 10/21/2023 09:24:03 09/12/2023 CT, chest, w/o contrast completed [address] [facility] Scheduling [address], [place], [address], 09/30/2023 09:19:58 09/30/2023 noninvasive ear or pulse oximetry by continuous overnight monitoring (PROC) completed [email or web address] Information not available 10/02/2023 17:16:45 09/30/2023 CPAP compliance* completed [email or web address] Informat ion not available 10/12/2023 19:12:09 11/10/2023 [...] Name and Address Organization Details Recorded Time [id number] ciproflox acin medicatio n Not available Not available Not available 09/30/20232022 2551 RxNorm [place] - [facility], [facility] 4 13:31:15 [id number] Cortispor in medicatio n Not available Not available Not available 10/20/2014 42787 RxNorm Kayla [place] - [facility], [facility] 5 11:30:23 Medications Name Sig Start Date [...] Details Last Updated DateTime 5 15 /min 331393. 36188 g 162.56 cm 37.9 kg/m2 88 /min 98.4 [degF] 134 mm[Hg] 80 mm[Hg] Kayla Art [facility], [facility] 5 11:30:23 Date Recorded Body height Respiratory rate Body weight Body mass index (BMI) Body temperature Heart rate Systolic blood pressure Diastolic blood pressure Provider Name and Address Organization Details Last Updated DateTime 5 162.56 cm 14 /min 228333. 96090 g 38.4 kg/m2 98.2 [degF] 94 /min 120 mm[Hg] 80 mm[Hg] Kayla Art [facility], [facility] 5 15:23:01 Date Recorded Body height Body mass index (BMI) Body weight Heart rate Oxygen saturation Oxygen saturation in Arterial blood by Pulse oximetry Inhaled oxygen flow rate Systolic blood pressure Diastolic blood pressure Provider Name and Address Organization Details Last Updated DateTime 4 162.56 cm 41.2 kg/m2 294966. 17 g 73 /min 90 % 90 % 2 L/min 131 mm[Hg] 109 mm[Hg] Natalia Long [facility], [facility] 4 16:02:25 Date Recorded Body height Body mass index (BMI) Body weight Heart rate Oxygen saturation Oxygen saturation in Arterial blood by Pulse oximetry Systolic blood pressure Diastolic blood pressure Provider Name and Address Organization Details Last Updated DateTime 4 162.56 cm 42.1 kg/m2 561378. 13 g 71 /min 93 % 93 % 125 mm[Hg] 82 mm[Hg] Little Lira [facility], [facility] 4 13:30:52 Social History Question Answer Notes LastModified by Organizat ion Details LastModified Time Tobacco Smoking Status Former Smoker ISA Rank[place] - [facility], [facility] 08/12/2023 16:03:57 What Is Your Level Of Alcohol Consumption? Occasional Information not available 08/12/2023 How Many Times Per Week Do You Consume Alcohol? 5-7 Times Per Week Information not available 08/12/2023 When Did You Quit Smoking? 16+yearssincel astcigarette Information not available 08/12/2023 Alcohol Use 1-2 Per Day [email or web address] Informatio n not available 10/20/2014 Do You [...] Time What is your exercise level? Occasional [email or web address] Information not available 10/20/2014 Mental Status None [...] SNOMED-CT Code Diagnosis ICD10 Code Diagnosis Note [id number] Kayla Art [facility] [address] [place] [address] 10/20/2014 11:13:19 10/20/2014 12:30:35 Fatigue 78284668 R/O hypothyroi dism. Abnormal weight gain 853374872 Will r/o Acromegaly and Inessa's Macrocytosis 141933894 W e will R/O Vit. B12 def. Tremor 68252642 Most likely Familiar Tremor, however she will discuss with Dr. Hinojosa. [id number] Ann-Marie Kline MD [facility] [address] [place] [address] 11/10/2014 15:13:32 11/10/2014 16:00:58 Fatigue 43505610 most likely due to stress, we have ruled out Thyroid disease. Bronchitis 66014325 Coug h does not allow her to sleep. She will take a cough syrup Pure hypercholesterolemia 608429504 On simvastati n. Obesity 442396759 With a BMI of 38.4. We will try Contrave if it is OK with Dr Hinojosa. Benign ess ential hypertension 1053732 Under control. [id number] TAMIKO SRIVASTAVA APRN [facility] [address] [facility] [place] [address] 08/12/2023 15:42:44 08/13/2023 14:42:40 Obstructive sleep apnea syndrome 46467408 G47.33 History of ANUSHA, non compliant on [...] in case. Bacteremia caused by Gram-negative bacteria 5868264371 08 A41.50 Klebsiella pneumonia bacteremia from community- acquired pneumonia, treated with cefepime while inpatient. Blood cultures were negative at discharge. Discharged home on cefpodoxim e for another 7 days. Pneumonia 858069130 J18. 9 CAP treated with cefepime while inpatient. At discharge blood cultures were clean. Discharged home on cefpodoxim e for another 7 days. 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 Yap, cardiology Detailed discussion had regarding need to monitor her salt and fluid intake [id number] TAMIKO SRIVASTAVA APRN [place] [address] [facility],[address] [address] 09/30/2023 13:23:06 10/11/2023 17:05:15 Obstructive sleep apnea syndrome 89560076 G47.33 Moderate ANUSHA with AHI 20.5 on PSG in 2017 with a REM AHI of 40 Plan:-Comp liance reviewed. She demonstrat es excellent compliance , good tolerance and is benefiting from its use-Contin ue BiPAP 16/12 cmH2O, easy breathe on-Fullfac e mask-Order sent to [facility] for new supplies-W ill also obtain overnight [...] or operating heavy machinery, if somnolent Dyspnea 741575360 R06.00 Likely secondary to diastolic heart failure, obesity and deconditio chuck Plan:-Cont inue oxygen at 2L/NC as needed to keep SpO2 90% or greater-Ar range for pulmonary function testing now her pneumonia is resolved.- Continue with Lasix, managed by Dr. Yap, cardiology -We again reviewed importance of monitoring her salt and fluid intake-Haim l check RAST and CBC Bacteremia caused by Gram-negative bacteria 0771384657 08 A41.50 RESOLVED:K lebsiella pneumonia bacteremia from community- acquired pneumonia, treated with cefepime while inpatient. Blood cultures were negative at discharge. Discharged home on cefpodoxim e for another 7 days. Pneumonia 817875739 J18. 9 RESOLVED:- CAP treated with cefepime while inpatient. At discharge blood cultures were clean. Discharged home on cefpodoxim e for another 7 days. -Follow-up CT of the chest at [facility] on 09/12/2023 showed resolution of previously noted infiltrate s with minimal left lower lobe atelectasi s and no other acute findings. Morbid obesity 924724411 E66.01 Recommend to increase physical activity, weight loss and avoid further weight gain Maggy thyroiditis 21 639447 E06.3 Chronic, stable Managed by primary care [id number] Lc Greco MD [address] [address] 11/26/2023 11:26:40 11/26/2023 16:53:01 Obstructive sleep apnea syndrome 70686686 G47.33 Chronic and stable Moderate ANUSHA with AHI 20.5 on PSG in 2017 with a REM AHI of 40 Most recent download with 90% total compliance 40% for compliance Usage is 3 hours and 29 minutes She is on BiPAP 08/03 AHI is 2.2 and leak is at 48.4 L/min Dyspnea 025298464 R06.00 Chronic stable Has shortness of breath secondary to obesity and deconditio chuck and history of diastolic heart failure She has oxygen that she uses as needed No evidence of airflow obstructio n noted on the PFT yesterday Pneumonia 581675010 J18. 9 Chronic and stable I reviewed her CT from August which showed resolution of the infiltrate s Morbid obesity 126478626 E66.01 Chronic stable Continue with weight loss She likely has concomitan t obesity hypoventil ation syndrome Maggy thyroiditis 21 046847 E06.3 Chronic and stable She is on levothyrox ine 25 mcg daily Essential hypertension 93042175 I10 Chronic and stable She is on carvedilol 6.25 mg twice a day, losartan 50 mg daily Gastroesop hageal reflux disease without esophagitis 425675298 K21.9 Chronic and stable She is on pantoprazo le 40 mg daily Hyperlipidemia 14825160 E78.5 Chronic and stable She is on [...] 10/20/2014 1 [place] Silvana Shahid Payam [id number] Silvana Payam 10/20/2014 2 [facility] HE[facility] OPTION - PLAN F (MEDICARE SUPPLEMENT) Silvana Pringlezier Payam [id number] Silvana Payam 11/10/2014 1 [place] Silvana F Payam [id number] Silvana Payam 11/10/2014 2 [facility] HE[employer] OPTION - PLAN F (MEDICARE SUPPLEMENT) Silvana Pringlezier Payam [id number] Silvana Payam 08/12/2023 1 [place] Silvana F Payam [id number] Silvana Payam 08/12/2023 2 [employer] HE[employer]CARE OPTION - PLAN F (MEDICARE SUPPLEMENT) Silvana Villanueva Payam [id number] Silvana Payam 09/30/2023 1 [place] Silvana F Payam [id number] Silvana Hare 09/30/2023 2 [facility] OPTION - PLAN F (MEDICARE SUPPLEMENT) Silvana Hare [id number] Silvaan Hare 11/26/2023 1 [place] Silvana Hare [id number] Silvana Hrae 11/26/2023 2 [facility] HE[facility] OPTION - PLAN F (MEDICARE SUPPLEMENT) Silvana Hare [id number] Silvana Hare Notes Date Note Type Note [...] hypernatremia and mild Macrocytosis. Ann-Marie Kline MD [address] [facility] [address], [place], [address], [facility] - [facility], [facility] 10/20/2014 12:51:12 5 text/html Patient comes for f/u of HTN, Hypercholesteronemia, Hypothyroidism, Osteoporosis, patient is not feeling well: she feels tired ,can not walk more than 2 blocks, she had a heart ev and it was negative; weight is stable, we discuss the lab tests: IGF-1 129, TFT: WNL Vit B12 was: 715 Patient brings records of BS: Ann-Marie Kline MD [address], [place], [address], [employer] 11/10/2014 16:16:57 4 text/html She is here for hospital follow-up and management of sleep apnea, accompanied by her husbandShe was recently hospitalized at [facility] with acute pulmonary edema in the setting [...] of vivid dreamsDenies restless legs TAMIKO SRIVASTAVA, TONGUE STITCHER [address], [place], [address], [facility], [facility] 08/12/2023 16:53:28 4 text/html She is here [...] painDenies nasal congestion or PND Hospitalized at [facility] in June with acute pulmonary edema/diastolic heart [...] 2.295th percentile leak of 48.4 TAMIKO SRIVASTAVA, TONGUE STITCHER [address] [address], [place], [address], [facility] - [facility], [facility] 09/30/2023 14:46:25 4 text/html This visit was [...] given verbal consent to telehealth visit. Use [employer] on the [employer] as patient was unable to come into [...] up-to-date with her vaccinations Lc Greco MD [address] [address], [place], [address], [facility] - [facility], [facility] 11/26/2023 12:16:16 OBGyn Episode No OBEpisode recorded.
--- OUTSIDE RECORDS SUMMARY | 2024-07-13 03:46 | XMS_ITS | Patient Health Record ---
Author Organization [facility] Address [address] [place] [address] [place] [address] [phone] Support Name Relationship Address Phone JAYJAY JACKSON Guarantor Unknown [phone] ALLERGIES No Known Allergies REASON FOR REFERRAL [...] Hypothyroidism, unspecified (E03.9) Active confirmed Hypothyr oidism (50862312) Problem Essential tremor (G25.0) Active confirmed 328788088 Problem Essential hypertension (I10) Active confirmed 03928848 Problem Gastroesophageal reflux disease without esophagitis (K21.9) Active confirmed 227714815 Problem Depression, unspecified depression type (F32.9) Active confirmed 98542834 Problem Psychophysiological insomnia (F51.04) Active confirmed 216372417 Problem Hyperlipemia, mixed (E78.2) Active confirmed Mixed hyperlipidemia (279925572) PLAN OF TREATMENT Pending Test Test Name Order Date Chest X-ray PA and lateral 06/06/2020 Urinalysis, Complete 06/06/2020 Urine Culture and Sensitivity 06/06/2020 Insurance Providers Payer Name Payer Address Payer Phone Subscriber Number Group Number Insured Name Patient Relationship to Insured Coverage Start Date Coverage End Date Medicare of [place] [employer] [address] [address] [place] [address] [id number] JAYJAY JACKSON Self - patient is the insured [facility] Medicare Supplement [address] [place]YOTI RAY FENG [phone] [id number] JAYJAY JACKSON Self - patient is the insured MEDICAL (GENERAL) HISTORY Medical History History ICD Code Hypertension Hyperlipidemia Hypothyroid Depression Surgical History Surgery Date(Month/Year) menningioma
--- OUTSIDE RECORDS SUMMARY | 2024-07-13 03:46 | XMS_ITS | Data Portability ---
Author Organization [place] - [facility] [employer] [facility] [employer] [facility] Address [address] [place] [address] Care Team Providers Care Atmospheric Physicist Name Role Phone DEBI MATOS Primary Care Provider [phone] Assessment No assessment recorded. Plan of Treatment [...] By Organization Details Last Modified Time 09/15/2023 [id number] The member was located in {{[facility]}} at the time of this call. Miscellaneous [...] spent in service of member: {{ 10#}} [email or web address] Not available 09/15/2023 15:29:17 09/29/2023 [id number] General Information During the time of {{telephonic* vide o call}} member was located in {{[facility] tra veling outside state of origin}}. Member is enrolled in {{diabetes hyperte nsion* diabetes & hyptertension}} program. During the call the nurse reviewed patients blood pressure and was able to address patient's concerns and/or questions. Clinical Picture Average BP Over last {{7 30*}} days: Systolic {{ 125#}} Diastolic {{ 70#}} . Based on member's readings and the parameters set by [employer] BAND INSTRUMENT REPAIRER, member's blood pressure is {{low at goal [...] {{Time 4#}} All members must have an BAND INSTRUMENT REPAIRER visit at minimum every 6 months while active, or when meeting escalation criteria. A [employer] BAND INSTRUMENT REPAIRER follow-up visit {{was scheduled today was offered today and the member refused was not offered/needed today}}. Members next [employer] BAND INSTRUMENT REPAIRER follow-up appointment is confirmed on {{Date}} between [...] to member's care plan for additional details. Not available 09/29/2023 16:06:52 10/13/2023 [id number] General Information Member was contacted via interactive {{telephonic outreach* video call}} and was located in {{[facility] formerly [facility] outside our service area}}. Call recording disclaimer [...] readings and the parameters set by [employer] BAND INSTRUMENT REPAIRER, member's blood pressure is {{low at goal* [...] no symptoms endorsed by member*}} a [employer] BAND INSTRUMENT REPAIRER follow-up visit {{has has not*}} been recommended. [...] PM EDT All members must have an BAND INSTRUMENT REPAIRER visit at minimum every 6 months while active, or when meeting escalation criteria. A [employer] BAND INSTRUMENT REPAIRER follow-up visit {{was scheduled today was offered today and the member refused was not offered/needed today* is already scheduled}}. Members next [employer] BAND INSTRUMENT REPAIRER follow-up appointment {{has not been scheduled* is on}} {{}} between {{9:00-11:00 AM 11:00-2:00 PM 2:00-5:00 pm}}. Total time spent in the care of the member: {{ 15#}} minutes [email or web address] Not available 10/13/2023 16:08:10 10/27/2023 [id number] General Information Member was contacted via interactive {{telephonic outreach* video call}} and was located in {{[facility] formerly [facility] a state outside our service area}}. Call [...] member's readings and the parameters set by [employer] BAND INSTRUMENT REPAIRER, member's blood pressure is {{low at goal* [...] no symptoms endorsed by member*}}, a [employer] BAND INSTRUMENT REPAIRER follow-up visit {{has has not*}} been recommended. [...] {{ 11/09#}} All members must have an BAND INSTRUMENT REPAIRER visit at minimum every 6 months while active, or when meeting escalation criteria. A [employer] BAND INSTRUMENT REPAIRER follow-up visit {{was scheduled today was offered today and the member refused was not offered/needed today* is already scheduled}}. Members next [employer] BAND INSTRUMENT REPAIRER follow-up appointment {{has not been scheduled is on}} {{}} between {{9:00-11:00 AM 11:00-2:00 PM 2:00-5:00 pm}}. Total time spent in the care of the member: {{ 10#}} minutes [email or web address] Not available 10/27/2023 15:39:53 11/10/2023 [id number] General Information Member was contacted via interactive {{telephonic outreach* video call}} and was located in {{[facility] outside our service area}}. Call recording disclaimer [...] member's readings and the parameters set by [facility]AND INSTRUMENT REPAIRER, member's blood pressure is {{low at goal* [...] no symptoms endorsed by member*}}, a [employer] BAND INSTRUMENT REPAIRER follow-up visit {{has has not*}} been recommended. [...] {{ 12/07#}} All members must have an BAND INSTRUMENT REPAIRER visit at minimum every 6 months while active, or when meeting escalation criteria. A [employer] BAND INSTRUMENT REPAIRER follow-up visit {{was scheduled today was offered today and the member refused was not offered/needed today* is already scheduled}}. Members next [employer] BAND INSTRUMENT REPAIRER follow-up appointment {{has not been scheduled is on}} {{}} between {{8:00 AM - 10:59 AM ET 11:00 AM - 1:59 PM ET 2:00 PM - 5:00 PM ET}}. Total time spent in the care of the member: {{ 15#}} minutes [email or web address] Not available 11/10/2023 16:04:17 Reason for Referral None Reported. Problems Name Problem SNOMED Code Status Onset Date Resolution Date Notes Provider Name and Address Organization Details Recorded Time Essential hypertension 31422665 Active 2023 Carisa osorio, BAND INSTRUMENT REPAIRER [address] , [place], [address], [facility] 14:05:29 Prediabetes 773282574 Active 2023 Carisa osorio, BAND INSTRUMENT REPAIRER [address] , [place], [address], [facility] 14:05:31 Obesity 449057626 Active 2023 Carisa osorio, BAND INSTRUMENT REPAIRER [address] , [place], [address], [facility] 14:05:43 Atrial fibrillation 90485574 Active 2023 Carisa osorio, BAND INSTRUMENT REPAIRER [address] , [place], [address], [facility] 4 14:05:49 Anxiety 24244935 Active 2023 Carisa osorio, BAND INSTRUMENT REPAIRER [address] , [place], [address], [facility] 14:05:56 Depressive disorder 17705366 Active 2023 Carisa osorio, BAND INSTRUMENT REPAIRER [address] , [place], [address], [facility] 14:06:02 Epilepsy 88962270 Active 2023 Carisa Hamilton devon, BAND INSTRUMENT REPAIRER [address] , [place], [address], [place] [facility] 14:06:12 Sleep apnea 26851336 Active 2023 Carisa Hamilton devon, BAND INSTRUMENT REPAIRER [address] , [place], [address], [place] [facility] 14:06:20 Hypothyroidism 12476500 Active 2023 Carisa osorio, BAND INSTRUMENT REPAIRER [address] , [place], [address], [place] [facility] 14:06:28 Hyperlipidemia 05773290 Active 2023 Carisa osorio, BAND INSTRUMENT REPAIRER [address] , [place], [address], [place] [facility] 14:06:34 Problem Notes None recorded. Procedures Surgical History Date Name Laterality Status Provider Name and Address Organization Details Recorded Time cholecystectomy completed Carisa Blunt , TEJINDER [address], [place], [address], [place] [facility] 07/03/2023 14:01:30 chin lift completed Carisa Blunt , TEJINDER [address], [place], [address], [place] [facility] 07/03/2023 14:01:49 total replacement of left knee joint completed Carisa Blunt NP [address], [place], [address], [place] [facility] 07/03/2023 14:02:00 total replacement of right knee joint completed Carisa Blunt NP [address], [place], [address], [place] [facility] 07/03/2023 14:02:10 Exploration maxillary sinus completed Carisa Blunt NP [address], [place], [address], [facility] 07/03/2023 14:02:41 craniectomy completed Carisa Jose Raul , TEJINDER [address], [place], [address], [facility] 07/03/2023 14:02:52 Imaging Results None recorded. Procedure [...] Updated DateTime 10/27/2023 162.56 cm 40.3 kg/m2 708316.21 g [facility] 10/27/2023 15:39:57 Social History Question Answer Notes LastModified by Organizat ion Details LastModified Time Tobacco Smoking Status Former Smoker Carsia Blunt, TEJINDER [address], [place], [address], [facility] 07/03/2023 13:54:10 What Is Your Level Of Alcohol Consumption? Moderate Information not available 07/03/2023 What Is Your Level Of Caffeine Consumption? Moderate Information not available 07/03/2023 When Did You Quit Smoking? 16+yearssincel marieyessenia swcox br[place]ver Information not available 07/03/2023 Sex: Unknown Functional Status None recorded. Mental Status None recorded. Family History Nothing Reported. Medical History Condition Response Diabetes Y Anxiety Disorder Y Obesity Y Seizures/Epilepsy Y Sleep Apnea Y High Cholesterol Y Hypertension Y Depression Y Hypothyroidism Y Gynecological HistoryNo gynecological history recorded. Obstetrics History GPAL:G 0 P 0 0 0 0 Past Encounters Encounter ID Performer Location Encounter Start Date Encounter Closed Date Diagnosis/Indication Diagnosis SNOMED-CT Code Diagnosis ICD10 Code Diagnosis Note [id number] Carisa Nirmala er, BAND INSTRUMENT REPAIRER PS_Provid er Schedule [address] [place] [address] 07/03/2023 13:40:24 07/03/2023 14:08:36 Essential hypertension 04132002 I10 Prediabetes 136251571 R7 3.03 [id number] Carisaray Hamiltonv er, BAND INSTRUMENT REPAIRER NS_Nursin g Schedule [address] [place] [address] 07/21/2023 15:13:02 07/21/2023 16:39:49 Essential hypertension 03790372 I10 Prediabetes 463830003 R7 3.03 [id number] Carisa Joyv er, BAND INSTRUMENT REPAIRER NS_Nursin g Schedule [address] [place] [address] 08/01/2023 15:56:41 08/01/2023 17:01:56 Essential hypertension 68079393 I10 Prediabetes 703905750 R7 3.03 [id number] Carisa Wason-Fawv er, BAND INSTRUMENT REPAIRER NS_Nursin g Schedule [address] [place] [address] 08/04/2023 15:02:39 08/04/2023 16:55:57 Essential hypertension 83407846 I10 Prediabetes 715246324 R7 3.03 [id number] Carisa Wason-Fawv er, BAND INSTRUMENT REPAIRER NS_Nursin g Schedule [address] [place] [address] 09/01/2023 15:48:33 09/01/2023 17:00:58 Essential hypertension 83296676 I10 Prediabetes 567762895 R7 3.03 [id number] Carisa Wason-Fawv er, BAND INSTRUMENT REPAIRER NS_Nursin g Schedule [address] [place] [address] 6 09/15/2023 15:19:55 09/16/2023 08:36:48 Essential hypertension 65981710 I10 Prediabetes 086638951 R7 3.03 [id number] Carisa Wason-Fawv er, BAND INSTRUMENT REPAIRER NS_Nursin g Schedule [address] [place] [address] 09/29/2023 15:55:33 09/29/2023 17:01:09 Essential hypertension 10106498 I10 Prediabetes 287806467 R7 3.03 [id number] Carisa Wason-Fawv er, BAND INSTRUMENT REPAIRER NS_Nursin g Schedule [address] [place] [address] 10/13/2023 15:55:16 10/13/2023 17:04:07 Essential hypertension 58683700 I10 Prediabetes 844810670 R7 3.03 [id number] Carisa Wason-Fawv er, BAND INSTRUMENT REPAIRER NS_Nursin g Schedule [address] [place] [address] 6 10/27/2023 15:31:55 10/27/2023 16:50:14 Essential hypertension 88583379 I10 Prediabetes 551015568 R7 3.03 [id number] Carisa Wason-Fawv er, BAND INSTRUMENT REPAIRER NS_Nursin g Schedule [address] [place] [address] 11/10/2023 15:53:20 11/10/2023 16:40:14 Essential hypertension 04346015 I10 Health Concerns Section Related Observation LastModified by Organization Detai ls LastModified Time None Recorded Concern Status LastModified by Organization Details LastModified Time None Recorded Advance Directives Directive None Recorded Payers Encounter Date Sequence Insurance Name Policy Number Policy Schilling Covered Member ID Schilling Member ID Guarantor Name 09/15/2023 1 [place] Silvana F Payam [id number] Silvana Payam 09/29/2023 1 [place] Silvana F Payam [id number] Silvana Payam 10/13/2023 1 [place] Silvana F Payam [id number] Silvana Payam 10/27/2023 1 [place] Silvana F Payam [id number] Silvana Payam 11/10/2023 1 [place] Silvana F Payam [id number] Silvana Payam OBGyn Episode No OBEpisode recorded.
--- OUTSIDE RECORDS SUMMARY | 2024-07-13 03:46 | XMS_ITS | Patient Health Record ---
Author Organization [facility] Address [address] [facility] [place] [address] Care Team Providers Care Occupational Work Experience Teacher Name Role Phone PetronaAdriano Unavailable [phone] doctor, Dr madrigal Unavailable Unavailable Reason For [...] Stiffness of joint of left foot (finding) (271686321655324) Stiffness of left foot, not elsewhere classified (M25.675) Active confirmed Problem Instability of joint of left foot (finding) (06170810343946072) Other instability, left foot (M25.375) Active confirmed Problem Enthesopathy of foot region (111869591) Other enthesopathy of left foot (M77.52) Active confirmed Problem Metatarsalgia of left foot (599330663350685) Metatarsalgia, left foot (M77.42) Active confirmed Problem Atherosclerosis of [place] arteries of the extremities (901817236960887) Unspecified atherosclerosis of [place] arteries of extremities, bilateral legs (I70.203) Active confirmed Problem 5996286604591737 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, 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) Active confirmed Problem Stiffness of joint of right foot (finding) (885513143830416) Stiffness of right foot, not elsewhere classified (M25.674) Active confirmed Problem Peripheral venous insufficiency (18320893) Venous insufficiency (chronic) (peripheral) (I87.2) Active confirmed Problem Pain in limb (98294717) Pain of left foot (M79.672) Active confirmed Problem Arthralgia of the ankle and/or foot (492982752) Pain in joint, ankle and foot, left [...] Part B [address] [place] [phone] [id number] Silvana Hare Self - patient is the insured 8 [employer] Supplement [address] [facility] [place] [address] [id number] Silvana Hare Self - patient is the [...] Knee Replacement Yes Surgical History Surgery Date(Month/Year) various elective sx [id number] brain 2018 sinus surgery 2014 2 bunion sx 2009 Hospitalization History Reason Date(Month/Year) see above
--- OUTSIDE RECORDS SUMMARY | 2024-07-13 03:46 | XMS_ITS | Data Portability ---
Author Organization [facility], [facility] Address [address] [place] [address] Care Team Providers Care Unit Reactor Operator Name Role Phone DEBI MATOS Primary Care [...] For Internal Use Only, Do Not Delete/merge, [id number] 13:50:00 home health referral - [facility] referral for home PTDx: Abnormal GAIT, Right knee arthropl asty, Left foot DJD, pain in limbGAIT training , safety/a ssessmen t, DME teaching , educatio n.Start 2 weeks 3x/week and will reassess at follow-u p visit in 2 weeks.SO C: 10/05 or Emir knowles, LEONORA AACFASAO [facility] ip-Train ed Foot and Ankle SurgeonA O/AAFAO Core FacultyO ffice: [phone] le: [phone]-charleen il: [email or web address] [address] [facility], [address], [address], [place], [address], 5 08:43:53 Procedures None recorded . Surgeries None recorded . Imaging XR, foot, 3 or more view 03/20/ 2023 03/20/2 023 [email or web address] In-House Results, For Internal Use Only, Do Not Delete/merge, [id number] 3 12:05:27 x-ray, foot, 3 views 2014 015 [email or web address] In-House Results, For Internal Use Only, Do Not Delete/merge, [id number] 5 18:48:02 Medication Orders None recorded . Patient TargetsNo targets recorded. Patient Instructions Encounter Date Encounter Id Patient Instructions Last Modified By Organization Details Last Modified Time 10/04/2014 [id number] Corticosteroid injection. Discussed operative option of arthrodesis to the great toe joint. F/U with me in 2 weeks for re-evaluation. [facility] referral for balance issues. [email or web address] Not available 10/04/2014 18:45:02 06/10/2022 [id number] heel pain instructions Not available 06/10/2022 17:26:14 [...] and concerns. Not available 06/10/2022 21:01:50 07/08/2022 [id number] -Dressed the lesion with betadine and a band-aid. -Advised to continue to WBAT in supportive shoes, attend PT, complete the HEP, and wear the night splint. -Recommended urea cream for keratoderma prophylaxis. -Addressed all of the patient's questions and concerns. Not available 07/08/2022 15:35:21 Reason for Referral Home Health Referral for Abn ormal gait [facility] referral for home PTDx: Abnormal GAIT, Right knee arthroplasty, Left foot DJD, pain in limbGAIT training, safety/assessment, DME teaching, education.Start 2 weeks 3x/week and will reassess at follow-up visit in 2 weeks.SOC: 10/05 or Emir galindo DPM AACFASAO Fellowship-Trained Foot and Ankle SurgeonGARRETT/HOOD Core FacultyOffice: [phone]: [phone]-mail: Referring Physician: Emir Curry Podiatry, Encounter Date: [...] For Internal Use Only, Do Not Delete/merge, [id number] 06/10/2022 21:02:54 Result Notes None recorded. Problems Name Problem SNOMED Code Status Onset Date Resolution Date Notes Provider Name and Address Organization Details Recorded Time Tremor 55473479 Active 2022 Latesha Workman [facility] 3 17:02:46 Acquired hallux rigidus 8671800 Active Emir Curry, DPM [address], [address] , [facility] 5 18:48:02 Sesamoiditis 00329985 Active Emir Curry DPDeonte [address], [address] , [facility] 5 18:48:02 Abnormal gait 06697836 Active Emir Curry, DPM [address], [address] , [facility] 5 18:48:02 Problem Notes None recorded. Procedures Surgical History Date Name Laterality Status Provider Name and Address Organization Details Recorded Time 07/09/19 23 Keratoma Debridement Size Lesion < 0.5CM completed Narendra Hannon, LEONORA [address] [place] [address], [address], [facility] 07/08/2022 13:55:47 06/11/19 23 Injection Fascia/Tendon/l igament completed Narendra Hannon DPM [address] [place] [address], [address], [facility] 06/10/2022 17:20:10 06/11/19 23 Night Splint completed Narendra Hannon DPDeonte [address] [place] [address], [address], [facility] 06/10/2022 17:21:21 06/11/19 23 Keratoma Debridement Size Lesion < 0.5CM completed Narendra Hannon DPM [address] [place] [address], [address], [facility] 06/10/2022 17:20:51 10/05/19 15 Injection Small Joint/Bursae completed Emir Curry DPM [address] [facility] [address] [address] [place] [address], [address], [facility] 10/04/2014 18:45:02 Knee Surgery completed Mykel Swain [facility] 10/04/2014 15:15:04 excision of bunion completed Latesha Workman [facility] 06/10/2022 16:53:36 Imaging Results Imaging Date Name Status LastModified by Organiz ation Details LastModified Time 06/10/2022 XR, foot, 3 or more view completed [facility] In-House Results For Internal Use Only, Do Not Delete/merge, [id number] 06/10/2022 21:02:54 Procedure Notes None recorded. Medical [...] [degF] 142 mm[Hg] 76 mm[Hg] Lorie Swain [facility] 10/04/2014 15:15:04 Date Recorded Body temperature Provider Name a nd Address Organization Details Last Updated DateTime 06/10/2022 97.6 [degF] Latesha Workman [facility] 06/10/2022 16:48:04 Date Recorded Body height Body mass index (BMI) Body weight Provider Name and Address Organization Details Last Updated DateTime 07/08/2022 162.56 cm 39.5 kg/m2 036708.25 g Teresa Mack [facility] 07/08/2022 13:40:42 Social History Question Answer Notes LastModified by Organizat ion Details LastModified Time Tobacco Smoking Status Never Smoker Mykel delaney [facility] 10/04/2014 [...] History Condition Response Coronary Artery Disease N Gout N Dyslipidemia N Hernia Y Artificial Joints N Thyroid Problems N Lung Disease N Blood Clots Y Pacemaker N Edema N Anemia N Back Pain Y Headaches/Migraines N Deep [...] SNOMED-CT Code Diagnosis ICD10 Code Diagnosis Note [id number] Mykel Swain [facility] 1660 [address]60 [facility] [address] [place] [address] 10/04/2014 14:06:36 10/04/2014 15:34:19 Acquired hallux rigidus 5018121 Sesamoiditis 19469573 Abnormal gait 97949596 115208 Narendra Hannon DPM [place] [address] [facility] [address] [address] [facility] [address] 06/10/2022 16:18:34 06/10/2022 17:34:47 Plantar fasciitis 493246445 M72.2 {{Improvin g worsenin g* same}} , {{Left* Ri ght Bilate ral}} Equinus co ntracture of the ankle 502610119 M24.573 Hammer toe 301773079 M20 .41 M20.42 Hammertoe deformitie s of {{Right Le ft Bilater al*}} Callosity 445814790 L84 Dry skin 30653631 L85.3 Squamous c ell carcinoma of skin 028348765 C44.92 Patient undergoing excision of lesion June 24 [id number] Narendra Hannon DPM [place] [address] [place] [address] [place] [address] 6 07/08/2022 13:37:08 07/08/2022 14:01:07 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 B/L medial hallux and LT submet 1 Plantar fasciitis 553798 003 M72.2 {{Improvin g* worseni ng same}} , {{Left* Ri ght Bilate ral}} Equinus co ntracture of the ankle 167239483 M24.573 Hammer toe 143312649 M20 .41 M20.42 Hammertoe deformitie s of {{Right Le ft Bilater al*}} Callosity 990121572 L84 Dry skin 52621072 L85.3 Squamous c ell carcinoma of skin 111970906 C44.92 Patient undergoing excision of lesion June 24 Health Concerns Section Related Observation LastModified by Organization Detai ls LastModified Time None Recorded Concern Status LastModified by Organization Details LastModified Time None Recorded Advance Directives Directive None Recorded Payers Encounter Date Sequence Insurance Name Policy Number Policy Schilling Covered Member ID Schilling Member ID Guarantor Name 10/04/2014 1 [place] Silvana Hare [id number] Silvana Hare 10/04/2014 2 [facility] CLAIMS - PLAN KT (MEDICARE SUPPLEMENT) Silvana Hare [id number] Silvana Hare 06/10/2022 1 [place] Silvana Hare [id number] Silvana Hare 06/10/2022 2 [facility] CLAIMS - PLAN KT (MEDICARE SUPPLEMENT) Silvana Riverok [id number] Silvana Hare 07/08/2022 1 [place] Silvana Hare [id number] Silvana Hare 07/08/2022 2 [facility] CLAIMS - PLAN KT (MEDICARE SUPPLEMENT) Silvana Riverok [id number] Silvana Hare Notes Date Note Type Note [...] toe. Pain: 1-08/31. Narendra Hannon, LEONORA [address] [place] [address], [place], [address], [facility] 06/10/2022 21:03:19 [...] improvements. Pain: 07/01. Narendra Hannon, LEONORA [address], [address], [facility] 07/08/2022 15:36:45 OBGyn Episode No OBEpisode recorded.
--- NOTE | 2024-07-26 15:49 | PC.NURSE ---
Report to the Outpatient Waiting Room, entrance under the green pavilion located off [facility], at time __10 am on date __08/03/24 . Planned Procedure Time: __12 noon .? Time changes happen often and if your time is changed the preop area will call you the afternoon before. - You and your visitor will be asked to self-screen and do not enter if you have any COVID symptoms. Please call surgeon if you need to reschedule. - A mask is optional within the hospital at this time. Patients may have clear liquids (water, carbonated beverages, clear teas, apple juice) until 3 hours prior to surgery (9AM) with a maximum of 20 ounces. - No food from midnight until time of surgery and no smoking, or chewing tobacco (or any form of nicotine). No chewing gum, candy or mints. - Infants may have breast milk until 4 hours before surgery, formula 6 hours prior to surgery. - Children will be allowed to drink immediately following surgery.? If applicable, please bring a bottle or sippy cup to assist with drinking. Juice, water, soda, and popsicles are readily available.? For infants on formula, please bring formula the day of surgery.? Pacifiers are allowed. Take only the following medications with a SIP of water on the morning of surgery: __CARVEDILOL,LAMOTRIGINE.PAROXETINE DO NOT STOP ANY OF YOUR OTHER PRESCRIPTION MEDICATIONS PRIOR TO SURGERY EXCEPT THE FOLLOWING Hold all vitamins and supplements for 3 days per anesthesiologist.LAST DOSE 07/30/24 Medications to discontinue per physician __SPOUSE STATES HOLD ASPIRIN 7 DAYS PRE OP PER DR MARTINEZ Date to take last dose___07/26/24 Please no make-up, nail ghanaian, hairspray, perfume, deodorant, or body powder the day of surgery.? No jewelry (including any body piercings) or valuables the day of surgery, leave them at home.? Please take a shower or bath the night before, or the morning of, surgery with an antibacterial soap.? Wear comfortable, loose fitting clothing.? Children are encouraged to wear pajamas. - Jewelry must be removed prior to entering the operating room.? Rings and piercings that are not removed may be cut off. - The hospital will not accept responsibility for valuables.? - Please leave all valuables, including medications, at home the day of surgery. If you are going home after surgery, a licensed patrol driver must drive you home.? - NO public transportation without another adult if you receive anesthesia. - We recommend that an adult stay with you for 24 hours following discharge. - We also recommend that you do not drive, make important decision, drink alcoholic beverages, or take any drugs that were not prescribed by your health care provider for at least 24 hours after your discharge time. For Pediatric surgeries, we recommend two adults accompany the child home. Follow any additional instructions given to you from your surgeon. Telephone instructions given to ___SPOUSE OLLIE and asked if any additional questions and then verbalized understanding. Patient advised to call surgeon office or pre surgery nurse liaison [phone] if any additional questions.
--- NOTE | 2024-07-26 15:51 | PC.NURSE ---
SPOUSE OLLIE STATES URINE CULTURE DONE AT DR VAZQUEZ ON 07/21/24 WAS TOLD IT WAS INCONCLUSIVE AND TO GO TO [facility] FOR [facility]INE CULTURE. THEY DID 07/21/24. TODAY 07/23/[address] VAZQUEZ CALLED TODAY STATING NO UTI SO NO ABX NEEDED . I CALLED TWICE TO DR VAZQUEZ REQUESTING URINE CULTURE RESULTS. HAD TO LEAVE MESSAGE WITH HIS MEDIAL TECH.
--- OUTSIDE RECORDS SUMMARY | 2024-08-03 02:39 | XMS_ITS | Data Portability ---
Author Organization [place] - [facility], Main Office Address [address] [place] [address] Assessment No assessment recorded. Plan of Treatment Reminders Order Date Submit Date Provider Last Modified By Organization Details Last Modified Time Details Appointments None recorded. Lab None recorded. Referral None recorded. Procedures None recorded. Surgeries None recorded. Imaging CT, sinuses, w/o contrast - [facility]. PLEASE GIVE PATIENT A COPY OF DISK. FAX RESULTS TO [phone] 2. THANKS! [address] [facility] [address] [place] [address] - [facility], [address], [place] [address], [place], [address], 5 16:40:55 Medication Orders fluticasone propionate 50 mcg/actuati on nasal spray,suspe nsion 2024 025 [id number], [address] [place], [place], [id number], 5 16:57:18 doxycycline hyclate 100 mg tablet 2024 025 [facility] #35758, [address] [place], [place], [id number], 5 16:57:19 Medrol (Robles) 4 mg tablets in a dose pack 2024 025 [facility] #[id number], [address] [place], [place], [id number], 5 16:57:17 Patient TargetsNo targets recorded. Patient Instructions Encounter Date Encounter Id Patient Instructions Last Modified By Organization Details Last Modified Time 06/22/2024 [id number] prescribed doxycycline and Medrol Dosepak for antimicrobial coverage and inflammation reduction due to persistent chronic sinusitis. Additionally prescribed fluticasone nasal spray for management. Discussed use of the Valsalva maneuver to aid in opening left Eustachian tube. She will have a sinus CT completed. We will follow up those results become available. [email or web address] Not available 06/23/2024 10:12:28 Reason for Referral None Reported. Results Created Date Observation Date Name Description Value Unit Range Abnormal Flag Note LastModifiedBy Organization Detail LastModifiedTime 07/24/1907/22/2024 CT, sinus es, w/o contr ast No observ ation record ed. [email or web address] - [facility] [address], [place], [address], 07/23/2024 11:03:46 Result Notes None recorded. Problems Name Problem SNOMED Code Status Onset Date Resolution Date Notes Provider Name and Address Organization Details Recorded Time Chronic sinusitis 21013427 Active 2024 Deidre delaney, [employer] [facility] 16:46:47 Dysfunction of left eustachian tube 1439887075226 106 Active 2024 HOMA Gonzales [address] [facility], [facility] [address], [place], [address], [employer] 10:11:22 Problem Notes None recorded. Procedures Surgical History Date Name Laterality Status Provider Name and Address Organization Details Recorded Time craniotomy completed Laura Jett RN [facility] 06/23/2024 09:48:25 Sinus Surgery completed MAIRA Traore [facility] [employer] 06/23/2024 09:48:32 total knee replacement completed MAIRA Traore [facility] 06/23/2024 09:48:45 excision of bunion completed MAIRA Traore [facility] 06/23/2024 09:48:57 Cholecystectomy completed Laura Jett RN [facility] 06/23/2024 09:49:03 myringotomy and insertion of tympanic ventilation tube completed Laura Jett RN [place] [facility] 06/23/2024 09:49:32 Imaging Results Imaging Date Name Status LastModified by Organiz ation Details LastModified Time 07/22/2024 CT, sinuses, w/o contrast completed [email or web address] [facility] [address], [place], [address], 07/23/2024 11:03:46 Procedure Notes None recorded. Medical Equipment None [...] Address Organization Details Last Updated DateTime 06/22/2024 224929.95 g 41.7 kg/m2 162.56 cm 97.6 [degF] Laura Tiwari, [facility] [address] [facility] [address], [place], [address] , [facility] [employer] [facility] 06/22/2024 16:47:09 Social History None recorded. Functional Status None recorded. Mental Status None recorded. Family History Nothing Reported. Medical History Condition Response ENT Y HIGH CHOLESTEROL / HYPERLIPIDEMIA Y EAR OR HEARING PROBLEMS Y HYPOTHYROIDISM Y DEPRESSION (INCLUDING POST ) Y SEIZURES/EPILEPSY Y HYPERTENSION Y OBESITY Y Gynecological HistoryNo gynecological history recorded. Obstetrics History GPAL:G 0 P 0 0 0 0 Past Encounters Encounter ID Performer Location Encounter Start Date Encounter Closed Date Diagnosis/Indication Diagnosis SNOMED-CT Code Diagnosis ICD10 Code Diagnosis Note [id number] Javier Ross MD [facility] [place] [address] [place] [address] 06/22/2024 16:14:45 06/23/2024 10:13:04 Chronic sinusitis 13308971 J32.9 Dysfunctio n of left eustachian tube 0952641870 228995 H69.92 Health Concerns Section Related Observation LastModified by Organization Detai ls LastModified Time None Recorded Concern Status LastModified by Organization Details LastModified Time None Recorded Advance Directives Directive None Recorded Payers Encounter Date Sequence Insurance Name Policy Number Policy Schilling Covered Member ID Schilling Member ID Guarantor Name 06/22/2024 1 [place] Silvana Hare [id number] Silvana Hare 06/22/2024 2 [facility] (MEDICARE SUPPLEMENT) Silvana Hare [id number] Silvana Hare Notes Date Note Type Note [...] not had any recent imaging. Laura Tiwari, [facility] [address] [facility], [place] [address], [place], [address], [facility] [employer] 06/23/2024 10:12:31 OBGyn Episode No OBEpisode recorded.
--- OUTSIDE RECORDS SUMMARY | 2024-08-03 02:39 | XMS_ITS | Encounter Summary ---
Author Organization [facility] Address [address] [place] [id number] Care Team Providers Care Concaver Name Role Phone Jose Norton MD Primary Care Provider Encounter Details Date Type Department Care Team (Late st Contact Info) Description 05/13/2024 Abstract [facility], [address] [place], [place] [id number] Robe Mendoza MA Social History Tobacco Use [...] Description 08/24/2024 1:00 PM CDT Office Visit [facility] - [address], [address] [place] [id number] Monet Beltran MD [address] [place] [id number] 09/03/2024 12:00 PM CDT Office Visit [facility] [phone] Sadie Villasenor MD [facility] [address] [place] [id number] documented as of this encounter Procedures Procedure [...] on filedocumented in this encounter Care Teams Concaver Relationship Specialty Start Date End Date Jose Norton MD [address] [place], [place] [phone] PCP - General FAMILY PRACTICE 02/13/24 documented as of this encounter
--- OUTSIDE RECORDS SUMMARY | 2024-08-03 02:40 | XMS_ITS | Data Portability ---
Author Organization [facility] Address [address] [place] [id number] Care Team Providers Care Set And Exhibit Designer Name Role Phone DEBI MATOS Primary Care Provider [phone] DEBI MATOS Referring Provider DEBI MATOS Primary Care Provider [phone] Assessment No assessment recorded. Plan of Treatment Reminders Order Date Submit Date Provider Last Modified By Organization Details Last Modified Time Details Appointments None recorded. Lab None recorded. Referral pulmonologi st referral 2023 024 ANTHONY Greco MD, [address], [address], [place], [address], 4 15:10:39 Procedures None recorded. Surgeries None recorded. Imaging electrocard iogram 2023 024 In-House Results, For Internal Use Only, Do Not Delete/merge, [id number] 4 10:41:32 PET, heart 2023 024 gayle Wallace MD ([facility]), [address], [address], [place], [address], 4 10:09:08 electrocard iogram 2023 024 In-House Results, For Internal Use Only, Do Not Delete/merge, [id number] 4 20:40:15 US, echocardiog florian, transthorac ic, complete, w/ color flow 2022 023 [facility], [address] [place] [address] , [place], [address], 09:37:29 event monitor - 48 hour holter 2022 023 [facility], RAY, [address], [address], [place], [address], 09:37:11 US, duplex, carotid artery 2022 023 [facility], [address] [place] [address] , [place], [address], 09:36:51 Medication Orders losartan 25 mg tablet 2023 024 ANTHONY [id number] [place] [address], [address], [place], [address], 10:41:34 Patient TargetsNo targets recorded. Patient Instructions Encounter Date Encounter Id Patient Instructions Last Modified By Organization Details Last Modified Time 08/28/2022 [id number] When You Want to Lose Weight: Care Instructions Not available 08/28/2022 13:37:59 dehydration: car e instructions Not available 08/28/2022 13:38:00 10/30/2022 [id number] When You Want to Lose Weight: Care Instructions Not available 10/30/2022 13:34:47 dehydration: car e instructions Not available 10/30/2022 13:34:47 06/12/2023 [id number] fainting: care instructions Not available 06/12/2023 20:40:15 When You Want to Lose Weight: Care Instructions Not available 06/12/2023 20:40:15 dehydration: car e instructions Not available 06/12/2023 20:40:15 07/28/2023 [id number] When You Want to Lose Weight: Care Instructions Not available 07/28/2023 10:41:32 high cholesterol : care instructions Not available 07/28/2023 10:41:32 fainting: care instructions Not available 07/28/2023 10:41:32 dehydration: car e instructions Not available 07/28/2023 10:41:32 10/30/2023 [id number] When You Want to Lose Weight: Care Instructions jt Not available 10/30/2023 13:24:03 high cholesterol : care instructions jt Not available 10/30/2023 13:24:03 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 [facility], [address], [place], [address], 09/15/2022 14:23:32 10/24/19 23 08/16/2022 XR, chest , 1 view No observ ation record ed. Not Available 2022 15:49:28 10/24/19 23 08/16/2022 CT, head, w/o contr ast No observ ation record ed. [email or web address] Not Available 2022 15:50:38 10/29/19 23 10/28/2022 US, echoc ardio gram, trans thora cic, compl ete, w/ color flow No observ ation record ed. Radiology [address] [place], [place], [address], 10/29/2022 07:53:37 10/30/1910/28/2022 US, doni araujo id arter y No observ ation record ed. Radiology [address] [place], [place], [address], 11/01/2022 12:15:47 06/11/19 24 04/29/2023 US, echoc [...] For Internal Use Only, Do Not Delete/merge, [id number] 06/12/2023 12:19:51 06/12/19 elect rocar diogr am No observ ation record ed. Not Available 2023 12:24:06 07/10/19 24 07/08/2023 PET, heart No observ ation record ed. Charly Wallace MD ([facility]) [address], [place], [address], 07/27/2023 13:20:25 07/25/19 24 07/18/2023 , echo ardio gram No observ ation record ed. Not Available 2023 14:36:09 07/25/19 24 07/16/2023 elect rocar diogr am No observ ation record ed. Not Available 2023 14:38:21 07/28/19 24 elect rocar diogr am No observ ation record ed. In-House Results For Internal Use Only, Do Not Delete/merge, [id number] 07/28/2023 10:35:22 07/28/19 24 elect rocar diogr am No observ ation record ed. Not Available 2023 10:34:36 Result Notes None recorded. Problems Name Problem SNOMED Code Status Onset Date Resolution Date Notes Provider Name and Address Organization Details Recorded Time Essential hypertensi on 06543935 Active 2017 Anaya [place]oles[place], [place] - [facility] 2 14:12:26 Hyperlipid emia 85863041 Active 2017 Anaya Davis null, [place] - [facility] 2 14:12:26 Syncope 326715576 Active 2017 Anaya Boles[place], [place] - [facility] 2 14:12:26 Takotsubo cardiomyop athy 756389625 Active 2017 Anaya Boles[place], [place] - [facility] 2 14:12:26 Intracrani al meningioma 491695107 Active 2018 s/p craniotomy Anaya Davis null, [place] - [facility] 2 14:12:26 Seizure 96524643 Active 2018 Anaya Davis null, [place] - [...] 12/19/2017 10:40:25 HEENT Surgery completed Martha Lopes [facility] 12/23/2017 16:03:39 Imaging Results Imaging Date Name Status LastModified by Organization Details LastModified Time 09/03/2022 event monitor completed [facility] Specialist, [address], [place], [address], 09/15/2022 14:23:32 08/16/2022 XR, chest, 1 view completed Informa tion not available 10/23/2022 15:49:28 08/16/2022 CT, head, w/o contrast completed Information not available 10/23/2022 15:50:38 10/28/2022 US, echocardiogram, transthoracic, complete, w/ color flow completed Radiology [address] [place], [address], 10/29/2022 07:53:37 10/28/2022 US, duplex, carotid artery completed Radiology [address] , [place], [address], 11/01/2022 12:15:47 04/29/2023 US, echocardiogram completed Inform ation not available 06/11/2023 09:25:53 06/11/2023 XR, chest, 1 view completed Informa tion not available 06/11/2023 09:26:50 04/28/2023 MRI, brain, w/o contrast completed Information not available 06/11/2023 09:29:27 04/28/2023 CT, head, w/o contrast completed Information not available 06/11/2023 09:30:30 06/12/2023 electrocardiogram completed In-Hous e Results For Internal Use Only, Do Not Delete/merge, [id number] 06/12/2023 12:19:51 06/12/2023 electrocardiogram completed Informa tion not available 06/12/2023 12:24:06 07/08/2023 PET, heart completed Charly Wallace MD ([facility]) [address], [place], [address], 07/27/2023 13:20:25 07/18/2023 US, echocardiogram completed Inform ation not available 07/25/2023 14:36:09 07/16/2023 electrocardiogram completed Informa tion not available 07/25/2023 14:38:21 07/28/2023 electrocardiogram completed In-Hous e Results For Internal Use Only, Do Not Delete/merge, [id number] 07/28/2023 10:35:22 07/28/2023 electrocardiogram completed Informa tion not available 07/28/2023 10:34:36 Procedure Notes None recorded. Medical Equipment None Reported. Allergies Allergen ID Allergen Name Allergen Category Reaction Reaction Severity Criticality Documentation Date Start Date Code Code System Note Provider Name and Address Organization Details Recorded Time 23386 Cipro medicatio n Not available Not available Not available 12/19/201741334 3 RxNorm Anaya [place], [place] - [facility] 14:16:18 [...] mm[Hg] 117 mm[Hg] 71 mm[Hg] Not Available [facility] 3 10:55:06 Date Recorded Body height Respiratory rate Body mass index (BMI) Body weight Heart rate Oxygen saturation Oxygen saturation in Arterial blood by Pulse oximetry Systolic blood pressure Diastolic blood pressure Provider Name and Address Organization Details Last Updated DateTime 3 162.56 cm 16 /min 41.2 kg/m2 076532. 17 g 72 /min 91 % 91 % 118 mm[Hg] 77 mm[Hg] Teresa Pratt [facility] 3 13:25:12 Date Recorded Heart rate Systolic blood pressure Diastolic blood pressure Provider Name and Address Organization Details Last Updated DateTime 08/30/2022 78 /min 117 mm[Hg] 71 mm[Hg] Not [facility] 08/30/20[facility] 15:27:01 Date Recorded Heart rate Systolic [...] mm[Hg] 149 mm[Hg] 83 mm[Hg] Not Available [facility] 10:07:05 Date Recorded Heart rate Heart rate Systolic blood pressure Diastolic blood pressure Systolic blood pressure Diastolic blood pressure Provider Name and Address Organization Details Last Updated DateTime 3 84 /min 84 /min 149 mm[Hg] 83 mm[Hg] 149 mm[Hg] 83 mm[Hg] Not Available [facility] 12:33:05 Date Recorded Heart rate Heart rate Systolic blood pressure Diastolic blood pressure Systolic blood pressure Diastolic blood pressure Provider Name and Address Organization Details Last Updated DateTime 3 82 /min 82 /min 133 mm[Hg] 80 mm[Hg] 133 mm[Hg] 80 mm[Hg] Not Available [facility] 12:34:07 Date Recorded Heart rate Heart rate Systolic blood pressure Diastolic blood pressure Systolic blood pressure Diastolic blood pressure Provider Name and Address Organization Details Last Updated DateTime 3 79 /min 79 /min 116 mm[Hg] 80 mm[Hg] 116 mm[Hg] 80 mm[Hg] Not Available [facility] 12:02:03 Date Recorded Body height Heart rate Oxygen saturation Oxygen saturation in Arterial blood by Pulse oximetry Respiratory rate Body mass index (BMI) Body weight Systolic blood pressure Diastolic blood pressure Provider Name and Address Organization Details Last Updated DateTime 3 162.56 cm 77 /min 94 % 94 % 16 /min 39.5 kg/m2 653333. 25 g 114 mm[Hg] 76 mm[Hg] Anaya [...] /min 144 mm[Hg] 83 mm[Hg] Not Available [facility] 11/27/2022 12:15:07 Date Recorded Heart rate Systolic blood pressure Diastolic blood pressure Provider Name and Address Organization Details Last Updated DateTime 11/29/2022 77 /min 134 mm[Hg] 83 mm[Hg] Not Available [facility] 11/29/2022 12:35:02 Date Recorded Heart rate Systolic blood pressure Diastolic blood pressure Provider Name and Address Organization Details Last Updated DateTime 11/30/2022 80 /min 128 mm[Hg] 78 mm[Hg] Not Available [facility] 11/30/2022 11:50:06 Date Recorded Heart rate Systolic blood pressure Diastolic blood pressure Provider Name and Address Organization Details Last Updated DateTime 12/01/2022 81 /min 153 mm[Hg] 82 mm[Hg] Not Available [facility] 12/02/2022 13:32:04 Date Recorded Heart rate Systolic blood pressure Diastolic blood pressure Provider Name and Address Organization Details Last Updated DateTime 12/02/2022 72 /min 128 mm[Hg] 79 mm[Hg] Not Available [facility] 12/02/2022 13:32:06 Date Recorded Heart rate Systolic blood pressure Diastolic blood pressure Provider Name and Address Organization Details Last Updated DateTime 12/03/2022 75 /min 128 mm[Hg] 79 mm[Hg] Not Available [facility] 12/03/2022 15:28:02 Date Recorded Heart rate Systolic blood pressure Diastolic blood pressure Provider Name and Address Organization Details Last Updated DateTime 12/05/2022 89 /min 122 mm[Hg] 77 mm[Hg] Not Available [facility] 12/05/2022 11:33:06 Date Recorded Heart rate Heart rate Systolic blood pressure Diastolic blood pressure Systolic blood pressure Diastolic blood pressure Provider Name and Address Organization Details Last Updated DateTime 82 /min 81 /min 151 mm[Hg] 79 mm[Hg] 125 mm[Hg] 77 mm[Hg] Not Available [facility] 11:10:07 Date Recorded Heart rate Heart rate [...] /min 133 mm[Hg] 76 mm[Hg] Not Available [facility] 12/09/2022 12:31:03 Date Recorded Heart [...] /min 138 mm[Hg] 80 mm[Hg] Not Available [facility] 12/13/2022 11:36:05 Date Recorded Heart rate Systolic blood pressure Diastolic blood pressure Provider Name and Address Organization Details Last Updated DateTime 12/14/2022 87 /min 154 mm[Hg] 80 mm[Hg] Not Available [facility] 12/15/2022 11:54:07 Date Recorded Heart rate Systolic blood pressure Diastolic blood pressure Provider Name and Address Organization Details Last Updated DateTime 12/15/2022 82 /min 131 mm[Hg] 75 mm[Hg] Not Available [facility] 12/15/2022 11:55:06 Date Recorded Heart [...] /min 111 mm[Hg] 68 mm[Hg] Not Available [facility] 12/31/2022 10:51:04 Date Recorded Heart rate Systolic blood pressure Diastolic blood pressure Provider Name and Address Organization Details Last Updated DateTime 01/01/2023 84 /min 115 mm[Hg] 70 mm[Hg] Not Available [facility] 01/01/2023 11:51:05 Date Recorded Heart rate Systolic blood pressure Diastolic blood pressure Provider Name and Address Organization Details Last Updated DateTime 01/03/2023 79 /min 126 mm[Hg] 77 mm[Hg] Not Available [facility] 01/03/2023 12:18:08 Date Recorded Heart rate Systolic blood pressure Diastolic blood pressure Provider Name and Address Organization Details Last Updated DateTime 01/04/2023 82 /min 126 mm[Hg] 77 mm[Hg] Not Available [facility] 01/04/2023 12:00:02 Date Recorded Heart rate Heart rate Systolic blood pressure Diastolic blood pressure Systolic blood pressure Diastolic blood pressure Provider Name and Address Organization Details Last Updated DateTime 85 /min 87 /min 136 mm[Hg] 97 mm[Hg] 121 mm[Hg] 75 mm[Hg] Not Available [facility] 11:26:06 Date Recorded Heart rate Systolic blood pressure Diastolic blood pressure Provider Name and Address Organization Details Last Updated DateTime 01/08/2023 72 /min 121 mm[Hg] 75 mm[Hg] Not Available [facility] 01/08/2023 13:06:04 Date Recorded Heart rate Heart rate Systolic blood pressure Diastolic blood pressure Systolic blood pressure Diastolic blood pressure Provider Name and Address Organization Details Last Updated DateTime 81 /min 74 /min 141 mm[Hg] 93 mm[Hg] 125 mm[Hg] 71 mm[Hg] Not Available [facility] 13:54:01 Date Recorded Heart rate Systolic blood pressure Diastolic blood pressure Provider Name and Address Organization Details Last Updated DateTime 01/10/2023 75 /min 119 mm[Hg] 65 mm[Hg] Not Available [facility] 01/10/2023 12:34:07 Date Recorded Heart rate Systolic blood pressure Diastolic blood pressure Provider Name and Address Organization Details Last Updated DateTime 01/12/2023 77 /min 114 mm[Hg] 63 mm[Hg] Not Available [facility] 01/12/2023 15:30:03 Date Recorded Heart rate Systolic blood pressure Diastolic blood pressure Provider Name and Address Organization Details Last Updated DateTime 01/13/2023 73 /min 112 mm[Hg] 47 mm[Hg] Not Available [facility] 01/13/2023 13:18:02 Date Recorded Heart rate Systolic blood pressure Diastolic blood pressure Provider Name and Address Organization Details Last Updated DateTime 01/14/2023 74 /min 123 mm[Hg] 71 mm[Hg] Not Available [facility] 01/14/2023 14:02:04 Date Recorded Heart rate Systolic blood pressure Diastolic blood pressure Provider Name and Address Organization Details Last Updated DateTime 01/16/2023 81 /min 110 mm[Hg] 66 mm[Hg] Not Available [facility] 01/16/2023 11:03:02 Date Recorded Heart rate Systolic blood pressure Diastolic blood pressure Provider Name and Address Organization Details Last Updated DateTime 01/19/2023 87 /min 125 mm[Hg] 80 mm[Hg] Not Available [facility] 01/19/2023 10:28:02 Date Recorded Heart rate Systolic blood pressure Diastolic blood pressure Provider Name and Address Organization Details Last Updated DateTime 01/18/2023 84 /min 150 mm[Hg] 68 mm[Hg] Not Available [facility] 01/19/2023 10:28:06 Date Recorded Heart rate Systolic blood pressure Diastolic blood pressure Provider Name and Address Organization Details Last Updated DateTime 01/21/2023 82 /min 143 mm[Hg] 77 mm[Hg] Not Available [facility] 01/21/2023 10:44:02 Date Recorded Heart rate Systolic blood pressure Diastolic blood pressure Provider Name and Address Organization Details Last Updated DateTime 01/20/2023 73 /min 119 mm[Hg] 74 mm[Hg] Not Available [facility] 01/21/2023 10:44:06 Date Recorded Heart rate Systolic blood pressure Diastolic blood pressure Provider Name and Address Organization Details Last Updated DateTime 01/22/2023 82 /min 113 mm[Hg] 70 mm[Hg] Not Available [facility] 01/22/2023 12:50:05 Date Recorded Heart rate Systolic blood pressure Diastolic blood pressure Provider Name and Address Organization Details Last Updated DateTime 01/23/2023 81 /min 115 mm[Hg] 76 mm[Hg] Not Available [facility] 01/23/2023 12:51:04 Date Recorded Heart rate Systolic blood pressure Diastolic blood pressure Provider Name and Address Organization Details Last Updated DateTime 01/24/2023 72 /min 116 mm[Hg] 64 mm[Hg] Not Available [facility] 01/24/2023 15:15:02 Date Recorded Heart rate Systolic blood pressure Diastolic blood pressure Provider Name and Address Organization Details Last Updated DateTime 01/25/2023 81 /min 110 mm[Hg] 61 mm[Hg] Not Available [facility] 01/25/2023 13:07:06 Date Recorded Heart rate Systolic blood pressure Diastolic blood pressure Provider Name and Address Organization Details Last Updated DateTime 01/26/2023 86 /min 117 mm[Hg] 64 mm[Hg] Not Available [facility] 01/26/2023 13:30:07 Date Recorded Heart rate Systolic blood pressure Diastolic blood pressure Provider Name and Address Organization Details Last Updated DateTime 01/27/2023 84 /min 113 mm[Hg] 57 mm[Hg] Not Available [facility] 01/27/2023 14:24:05 Date Recorded Heart rate Systolic blood pressure Diastolic blood pressure Provider Name and Address Organization Details Last Updated DateTime 01/29/2023 76 /min 113 mm[Hg] 57 mm[Hg] Not Available [facility] 01/29/2023 11:56:07 Date Recorded Heart rate Systolic blood pressure Diastolic blood pressure Provider Name and Address Organization Details Last Updated DateTime 01/30/2023 70 /min 128 mm[Hg] 69 mm[Hg] Not Available [facility] 02/02/2023 19:41:01 Date Recorded Heart rate Heart rate Systolic blood pressure Diastolic blood pressure Systolic blood pressure Diastolic blood pressure Provider Name and Address Organization Details Last Updated DateTime 70 /min 71 /min 140 mm[Hg] 70 mm[Hg] 150 mm[Hg] 74 mm[Hg] Not Available [facility] 19:41:02 Date Recorded Heart rate Systolic blood [...] /min 127 mm[Hg] 83 mm[Hg] Not Available [facility] 02/28/2023 11:18:02 Date Recorded Heart [...] /min 126 mm[Hg] 82 mm[Hg] Not Available [facility] 03/03/2023 11:55:02 Date Recorded Heart rate Systolic blood pressure Diastolic blood pressure Provider Name and Address Organization Details Last Updated DateTime 03/02/2023 86 /min 127 mm[Hg] 84 mm[Hg] Not Available [facility] 03/03/2023 11:55:03 Date Recorded Heart rate Systolic blood pressure Diastolic blood pressure Provider Name and Address Organization Details Last Updated DateTime 03/04/2023 87 /min 133 mm[Hg] 82 mm[Hg] Not Available [facility] 04/07/2023 10:49:03 Date Recorded Heart rate Systolic blood pressure Diastolic blood pressure Provider Name and Address Organization Details Last Updated DateTime 03/05/2023 85 /min 115 mm[Hg] 68 mm[Hg] Not Available [facility] 04/07/2023 10:49:05 Date Recorded Heart rate Systolic blood pressure Diastolic blood pressure Provider Name and Address Organization Details Last Updated DateTime 03/10/2023 82 /min 135 mm[Hg] 84 mm[Hg] Not Available [facility] 04/07/2023 10:50:02 Date Recorded Heart rate Systolic blood pressure Diastolic blood pressure Provider Name and Address Organization Details Last Updated DateTime 03/09/2023 84 /min 116 mm[Hg] 80 mm[Hg] Not Available [facility] 04/07/2023 10:50:05 Date Recorded Heart rate Heart rate Systolic blood pressure Diastolic blood pressure Systolic blood pressure Diastolic blood pressure Provider Name and Address Organization Details Last Updated DateTime 81 /min 80 /min 152 mm[Hg] 86 mm[Hg] 124 mm[Hg] 82 mm[Hg] Not Available [facility] 10:50[facility]06 Date Recorded Heart rate Systolic blood [...] /min 126 mm[Hg] 85 mm[Hg] Not Available [facility] 04/07/2023 10:51:02 Date Recorded Heart rate Systolic blood pressure Diastolic blood pressure Provider Name and Address Organization Details Last Updated DateTime 03/12/2023 84 /min 129 mm[Hg] 84 mm[Hg] Not Available [facility] 04/07/2023 10:51:04 Date Recorded Heart rate Heart [...] /min 126 mm[Hg] 75 mm[Hg] Not Available [facility] 04/07/2023 10:51:07 Date Recorded Heart rate Systolic blood pressure Diastolic blood pressure Provider Name and Address Organization Details Last Updated DateTime 03/20/2023 83 /min 139 mm[Hg] 78 mm[Hg] Not Available [facility] 04/07/2023 10:52:04 Date Recorded Heart rate Systolic blood pressure Diastolic blood pressure Provider Name and Address Organization Details Last Updated DateTime 03/19/2023 84 /min 133 mm[Hg] 85 mm[Hg] Not Available [facility] 04/07/2023 10:52:06 Date Recorded Heart rate Heart [...] /min 115 mm[Hg] 59 mm[Hg] Not Available [facility] 06/09/2023 10:26:04 Date Recorded Heart rate Systolic blood pressure Diastolic blood pressure Provider Name and Address Organization Details Last Updated DateTime 05/08/2023 73 /min 133 mm[Hg] 75 mm[Hg] Not Available [facility] 06/10/2023 12:56:05 Date Recorded Heart rate Systolic blood pressure Diastolic blood pressure Provider Name and Address Organization Details Last Updated DateTime 05/09/2023 72 /min 133 mm[Hg] 62 mm[Hg] Not Available [facility] 06/10/2023 12:56:09 Date Recorded Heart rate Systolic blood pressure Diastolic blood pressure Provider Name and Address Organization Details Last Updated DateTime 05/10/2023 75 /min 138 mm[Hg] 72 mm[Hg] Not Available [facility] 06/10/2023 12:58:03 Date Recorded Heart rate Heart rate Systolic blood pressure Diastolic blood pressure Systolic blood pressure Diastolic blood pressure Provider Name and Address Organization Details Last Updated DateTime 80 /min 85 /min 150 mm[Hg] 79 mm[Hg] 150 mm[Hg] 68 mm[Hg] Not Available [facility] 13:01:03 Date Recorded Heart rate Systolic blood pressure Diastolic blood pressure Provider Name and Address Organization Details Last Updated DateTime 05/13/2023 83 /min 130 mm[Hg] 65 mm[Hg] Not Available [facility] 06/10/2023 13:01:02 Date Recorded Heart rate Systolic blood pressure Diastolic blood pressure Provider Name and Address Organization Details Last Updated DateTime 05/14/2023 74 /min 136 mm[Hg] 71 mm[Hg] Not Available [facility] 06/10/2023 13:03:04 Date Recorded Heart rate Systolic blood pressure Diastolic blood pressure Provider Name and Address Organization Details Last Updated DateTime 05/15/2023 73 /min 134 mm[Hg] 72 mm[Hg] Not Available [facility] 06/10/2023 13:03:05 Date Recorded Heart rate Systolic [...] 4 162.56 cm 16 /min 41.2 kg/m2 067473. 17 g 70 /min 93 % 93 [...] /min 113 mm[Hg] 80 mm[Hg] Not Available [facility] 12:15:08 Date Recorded Heart rate Systolic blood pressure Diastolic blood pressure Provider Name and Address Organization Details Last Updated DateTime 06/26/2023 70 /min 140 mm[Hg] 84 mm[Hg] Not Available [facility] 06/26/2023 13:01:06 Date Recorded Heart rate Heart rate Heart rate Systolic blood pressure Diastolic blood pressure Systolic blood pressure Diastolic blood pressure Systolic blood pressure Diastolic blood pressure Provider Name and Address Organization Details Last Updated DateTime 4 79 /min 78 /min 79 /min 142 mm[Hg] 86 mm[Hg] 175 mm[Hg] 124 mm[Hg] 135 mm[Hg] 72 mm[Hg] Not Available [facility] 4 11:55:07 Date Recorded Heart rate Heart rate Systolic blood pressure Diastolic blood pressure Systolic blood pressure Diastolic blood pressure Provider Name and Address Organization Details Last Updated DateTime 4 78 /min 77 /min 148 mm[Hg] 94 mm[Hg] 128 mm[Hg] 79 mm[Hg] Not Available [facility] 4 10:45:01 Date Recorded Heart rate Heart rate Systolic blood pressure Diastolic blood pressure Systolic blood pressure Diastolic blood pressure Provider Name and Address Organization Details Last Updated DateTime 4 71 /min 70 /min 125 mm[Hg] 105 mm[Hg] 127 mm[Hg] 67 mm[Hg] Not Available [facility] 4 12:14:10 Date Recorded Heart rate Systolic blood pressure Diastolic blood pressure Provider Name and Address Organization Details Last Updated DateTime 07/01/2023 73 /min 150 mm[Hg] 86 mm[Hg] Not Available [facility] 07/01/2023 12:14:09 Date Recorded Body height Respiratory rate Heart rate Oxygen saturation Oxygen saturation in Arterial blood by Pulse oximetry Body mass index (BMI) Body weight Systolic blood pressure Diastolic blood pressure Provider Name and Address Organization Details Last Updated DateTime 4 162.56 cm 16 /min 79 /min 93 % 93 % 40.3 kg/m2 488195. 21 g 100 mm[Hg] 66 mm[Hg] Viviana Butts [facility] 4 10:12:47 Date Recorded Body height Respiratory rate Oxygen saturation Oxygen saturation in Arterial blood by Pulse oximetry Heart rate Systolic blood pressure Diastolic blood pressure Provider Name and Address Organization Details Last Updated DateTime 4 162.56 cm 16 /min 94 % 94 % 73 /min 136 mm[Hg] 84 mm[Hg] Martha Scottandrea kilgore [place] - [facility] 4 13:09:41 Date Recorded Body mass index (BMI) Body weight Provider Name and Address Organization Details Last Updated DateTime 10/30/2023 41.2 kg/m2 086059.17 RAY Cruz [address] [place] [address],[address], [place], [address], [place] - [facility] 10/30/2023 13:13:38 Social History Question Answer Notes LastModified by Gertrude Details LastModified Time Tobacco Smoking Status Former Smoker Shari Loza rhe[place], [place] - [facility] 01/22/2022 16:22:20 Do You Have An Advance Directive? Yes Surrogate Decision Maker Luis Hare Information not available 04/27/2019 Is Blood Transfusion Acceptable In An Emergency? Yes [email or web address] Information not available 01/22/2022 What Is Your Level Of Caffeine Consumption? Moderate 1 Cup Per Day And 3 Cups Of Diet Tea Per Day [email or web address] Information not available 01/22/2022 What Type Of Diet Are You Following? SPECIFIC [email or web address] Information not available 01/22/2022 What Was The Date Of Your Most Recent Tobacco Screening? 10/30/2023 [email or web address] Information not available 10/30/2023 What Is Your Relationship Status? [email or web address] Information not available 01/22/2022 At What Age Did You Start Smoking Tobacco? 22 [email or web address] Information not available 01/22/2022 How Much Tobacco Do You Smoke? No [email or web address] Information not available 01/22/2022 How Many Years Have You Smoked Tobacco? 15 [email or web address] Information not available 01/22/2022 Sex: Female Functional Status Question Answer Note LastModified by [facility] Details LastModified Time Do you use any illicit or recreational drugs? No [email or web address] Information not available 01/22/2022 Do you or have you ever used any other forms of tobacco or nicotine? No [email or web address] Information not available 09/21/2020 What is your level of alcohol consumption? Moderate 1-2 glasses of wine daily [email or web address] Information not available 01/22/2022 Do you or have you ever used smokeless tobacco? Never used [email or web address] tobacco Information not available 01/27/2019 Do you or have you ever used e-cigarettes or vape? Never used electronic cigarettes Information not available 01/27/2019 What is your exercise level? None [email or web address] Information not available 01/22/2022 Mental Status None [...] SNOMED-CT Code Diagnosis ICD10 Code Diagnosis Note [id number] Charly [facility] MD [facility] [address] [place] [address] 12/23/2017 15:33:34 12/23/2017 16:49:48 Benign essential hypertension 1496444 I10 Patient reports occasional dizziness at home. Decrease losartan to 25mg once daily. Create BP log for follow up in six weeks. Syncope 429412352 R55 No recurrent episode. Patient was evaluated in the hospital. Managed by neurologis cecilio Takotsubo cardiomyopathy 706518226 I51.81 Heart catherizat ion performed on 12/03/2017 revealed minimal coronary artery disease and LVEF estimated at 35-40%. On carvedilol and furosemide . Reassess LVEF in six months. Hyperlipidemia 09710478 E78.00 On statin therapy. Electrocar diogram abnormal 363609710 R94.31 Abnormal EKG. Patient underwent heart catherizat ion which revealed minimal coronary artery disease. Cerebral meningioma 1890 [address] Hinojosa. Overweight 309109336 E66 .3 Healthy diet discussed. Advised to refrain from alcohol consumptio n. [id number] Reyna Almeida NP [place] [address] 7 02/03/2018 12:54:46 02/03/2018 13:26:53 Electrocardiogram abnormal 358067384 R94.31 Abnormal EKG. Patient underwent heart catherizat ion which revealed minimal coronary artery disease. Takotsubo cardiomyopathy 173575064 I51.81 Heart catherizat ion performed on 12/03/2017 revealed minimal coronary artery disease and LVEF estimated at 35-40%. On carvedilol and furosemide . Reassess LVEF in six months. Benign ess ential hypertension 4952289 I10 Patient reports occasional dizziness at home. Improved with decreased dose of losartan. Syncope 198367965 R55 No recurrent episode. Patient was evaluated in the hospital. Managed by neurologis tDenzel Hyperlipidemia 12032811 E78.00 On statin therapy. Cerebral meningioma 1891 [address] Hinojosa. Overweight 659727251 E66 .3 Healthy diet discussed. Advised to refrain from alcohol consumptio n. Seizure disorder 0127315 02 G40.909 S/P seizure. Managed by Dr. Hinojosa. [id number] Reyna Almeida NP [place] [id number] 7 04/03/2018 13:12:28 04/03/2018 14:28:06 Electrocardiogram abnormal 118990267 R94.31 Abnormal EKG. Patient underwent heart catherizat ion which revealed minimal coronary artery disease. Patient is currently at an acceptable risk from cardiac standpoint to undergo non-cardia c surgery. Monitor for volume overload. Patient evaluated by Dr Charly Wallace She is at acceptable risk to undergo surgery. Avoid volume overload Takotsubo cardiomyopathy 709020068 I51.81 Heart catherizat ion performed on 12/03/2017 revealed minimal coronary artery disease and LVEF estimated at 35-40%. On carvedilol and furosemide . Benign ess ential hypertension 9919377 I10 Patient reports occasional dizziness at home. Improved with decreased dose of losartan. Syncope 606709895 R55 No recurrent episode. Patient was evaluated in the hospital. Managed by neurologis tDenzel Hyperlipidemia 31698752 E78.00 On statin therapy. Cerebral meningioma 1891 [address] Hinojosa. Patient is scheduled for surgical management of meningioma . Overweight 647911679 E66 .3 Healthy diet discussed. Advised to refrain from alcohol consumptio n. Seizure disorder 7437775 02 G40.909 S/P seizure. Managed by Dr. Hinojosa. [id number] Charly [facility] MD [facility] [address] [place] [address] 7 05/05/2018 11:37:48 05/05/2018 12:12:51 Electrocardiogram abnormal 793770984 R94.31 Stable Takotsubo cardiomyopathy 751741027 I51.81 Heart catherizat ion performed on 12/03/2017 revealed minimal coronary artery disease and LVEF estimated at 35-40%. On carvedilol and furosemide . Plan echo next month Benign ess ential hypertension 7077626 I10 acceptable control blood pressure. Syncope 534242353 R55 no further syncope. Patient had a meningioma which is status post resection. Hyperlipidemia 17618031 E78.00 On statin therapy. Cerebral meningioma 1891 [address] Hinojosa. Status post surgical resection of meningioma . Overweight 594246393 E66 .3 Healthy diet discussed. Advised to refrain from alcohol consumptio n. Seizure disorder 5365722 02 G40.909 S/P seizure. Managed by Dr. Hinojosa. No further seizures status post meningioma resection. [id number] Reyna Almeida NP [facility] [address] [place] [address] 7 01/27/2019 13:44:48 01/27/2019 15:25:14 Takotsubo cardiomyopathy 240345695 I51.81 Heart catherizat ion performed on 12/03/2017 revealed minimal coronary artery disease and LVEF estimated at 35-40%. On carvedilol and furosemide . Assess LV function with 2D echo. Electrocar diogram abnormal 400920751 R94.31 Stable Benign ess ential hypertension 6121499 I10 Acceptable control blood pressure. Syncope 307217678 R55 no further syncope. Patient had a meningioma which is status post resection. Patient reports recent dizziness while changing position.W e will decrease carvedilol to 1/2 tablet twice daily.Plan 2D echo to assess LV function.A dvised patient to increase hydration as well. Follow up with blood pressure log. Hyperlipidemia 80942862 E78.00 On statin therapy. Cerebral meningioma 1891 [address] Hinojosa. Status post surgical resection of meningioma . Overweight 749473194 E66 .3 Healthy diet discussed. Advised to refrain from alcohol consumptio n. She has gained 17lbs since last visit. Seizure disorder 1479682 02 G40.909 S/P seizure. Managed by Dr. Hinojosa. No further seizures status post meningioma resection. [id number] Charly Wallace MD [facility] [address] [place] [address] 04/27/2019 11:06:55 04/27/2019 11:36:59 Electrocardiogram abnormal 377124350 R94.31 Not repeated at today's visit. Takotsubo cardiomyopathy 250456737 I51.81 Heart catherizat ion performed on 12/03/2017 revealed minimal coronary artery disease and LVEF estimated at 35-40%. On carvedilol and furosemide . Most recent echocardio gram performed February 2019 revealed preserved LV function. Estimated ejection fraction 55-60 % Benign ess ential hypertension 6696891 I10 Borderline control of blood pressure. Blood pressure better controlled at home. Continue current meds.Kitty nt reports blood pressure 130/80 or less at home. Managed by primary physician. Syncope 419018347 R55 no further syncope. Hyperlipidemia 62119675 E78.00 On statin therapy. Cerebral meningioma 189 [address] Hinojosa. Status post surgical resection of meningioma . Overweight 553713252 E66 .3 Healthy diet discussed. Advised to refrain from alcohol consumptio n. Patient will attempt to lose weight. Seizure disorder 9647373 02 G40.909 S/P seizure. Managed by Dr. Hinojosa. No further seizures status post meningioma resection. [id number] Reyna Almeida NP [facility] [address] [place] [address] 11/18/2019 12:58:51 11/18/2019 13:42:38 Essential hypertension 27501978 I10 Blood pressure elevated at today's visit.Alina ent reports acceptable control of blood pressure at home. Electrocar diogram abnormal 307445683 R94.31 Stabel/unc hanged Takotsubo cardiomyopathy 780856512 I51.81 Heart catherizat ion performed on 12/03/2017 revealed minimal coronary artery disease and LVEF estimated at 35-40%. On carvedilol and furosemide . Most recent echocardio gram performed February 2019 revealed preserved LV function. Estimated ejection fraction 55-60 %. Stable. Renew med. Syncope 960772444 R55 no further syncope. Hyperlipidemia 86589504 E78.00 On statin therapy. Cerebral meningioma 189 [address] Hinojosa. Status post surgical resection of meningioma . Being followed up by Dr. Hinojosa. Overweight 105241132 E66 .3 Healthy diet discussed. Advised to refrain from alcohol consumptio n. Patient is unable to exercise due to orthopedic limitation s.She has modified her diet but was unable to lose weight. Seizure disorder 2101054 02 G40.909 S/P seizure. Managed by Dr. Hinojosa. No further seizures status post meningioma resection. Difficulty swallowing 28 6064735 R13.10 Reports difficulty swallowing .She is scheduled to follow up with GI. Memory impairment 163639 006 R41.3 Worsening memory impairment since meningioma resection. She will follow up with neurology regarding this. [id number] Reyna Almeida NP [facility] - [facility] [address] [place] [address] 06/20/2020 14:15:29 06/20/2020 14:56:49 Essential hypertension 04975389 I10 Acceptable control of blood pressure with current medication . Takotsubo cardiomyopathy 548642614 I51.81 Heart catherizat ion performed on 12/03/2017 revealed minimal coronary artery disease and LVEF estimated at 35-40%. On carvedilol and furosemide . Most recent echocardio gram performed February 2019 revealed preserved LV function. Estimated ejection fraction 55-60 %. Patient feeling well from cardiac standpoint .She is currently at an acceptable risk from cardiac standpoint to undergo non-cardia c surgery. Electrocar diogram abnormal 881329150 R94.31 Stable/unc hanged Syncope 016946850 R55 no further syncope. Hyperlipidemia 48149816 E78.00 On statin therapy. Cerebral meningioma 189 [address] Hinojosa. Status post surgical resection of meningioma . Being followed up by Dr. Hinojosa. Memory impairment 805146 006 R41.3 Worsening memory impairment since meningioma resection. She will follow up with neurology regarding this. Seizure disorder 0053355 02 G40.909 S/P seizure. Managed by Dr. Hinojosa. No further seizures status post meningioma resection. Difficulty swallowing 28 9469602 R13.10 Resolved. Overweight 726787314 E66 .3 Healthy diet discussed. Advised to refrain from alcohol consumptio n. Patient is unable to exercise due to orthopedic limitation s.She has modified her diet but was unable to lose weight. Lost about 32lbs with diet. Knee pain 75408327 M25.5 69 Tentative plan for knee surgery. [id number] Charly Wallace MD [facility] [address] [place] [address] 09/21/2020 11:36:29 09/21/2020 12:26:08 Essential hypertension 37952567 I10 Patient has been taking blood pressure at home however her device failed. But has not yet been replaced. Recommend remote patient monitoring . Target blood pressure 130 over 80 or less Takotsubo cardiomyopathy 809201887 I51.81 Heart catherizat ion performed on 12/03/2017 revealed minimal coronary artery disease and LVEF estimated at 35-40%. On carvedilol and furosemide . Most recent echocardio gram performed February 2019 revealed preserved LV function. Estimated ejection fraction 55-60 %.Stable Electrocar diogram abnormal 390236898 R94.31 Stable/unc hanged Syncope 399198621 R55 no further syncope. Hyperlipidemia 58728594 E78.00 On statin therapy. Cerebral meningioma 189 [address] Hinojosa. Status post surgical resection of meningioma . Being followed up by Dr. Hinojosa. Memory impairment 164730 006 R41.3 Worsening memory impairment since meningioma resection. She will follow up with neurology regarding this. Seizure disorder 1261223 02 G40.909 S/P seizure. Managed by Dr. Hinojosa. No further seizures status post meningioma resection. Overweight 233962492 E66 .3 Healthy diet discussed. Advised to refrain from alcohol consumptio n.Discussi on regarding weight loss Knee pain 02108217 M25.5 69 s/p knee surgery Difficulty swallowing 28 4434947 R13.10 Resolved. [id number] Charly Wallace MD [facility] [address] [place] [address] [address] [place] [address] 06/11/2021 11:23:58 06/11/2021 11:54:42 Hyperlipidemia 12980262 E78.00 On statin therapy.Ma naged by primary Syncope 862207483 R55 no further syncope. Takotsubo cardiomyopathy 313010420 I51.81 Heart catherizat ion performed on 12/03/2017 revealed minimal coronary artery disease and LVEF estimated at 35-40%. On carvedilol and furosemide . Most recent echocardio gram performed February 2019 revealed preserved LV function. Estimated ejection fraction 55-60 %.Stable Electrocar diogram abnormal 312982761 R94.31 Stable/unc hanged Essential hypertension 90293337 I10 Review of blood pressure reveals elevated diastolic pressure. Recommend increasing losartan to 50 mg every afternoon and 25 mg every morning. Target blood pressure 130/80 or less. Cerebral meningioma 1891 [address] Hinojosa. Status post surgical resection of meningioma . Being followed up by Dr. Hinojosa. Patient looking for Dr. Hinojosa's new office since he left his previous employer Memory impairment 967440 006 R41.3 Worsening memory impairment since meningioma resection. She will follow up with neurology regarding this. Seizure disorder 8683726 02 G40.909 S/P seizure. Managed by Dr. Hinojosa. No further seizures status post meningioma resection. Knee pain 58540052 M25.5 69 s/p knee surgery Difficulty swallowing 28 2996764 R13.10 Resolved. Morbid obesity 202145971 E66.01 Healthy diet discussed. Advised to refrain from alcohol consumptio n.Discussi on regarding weight loss [id number] RAY Guzman [facility] [address] [facility] [address] [place] [address] 10/31/2021 14:04:21 10/31/2021 14:53:56 Essential hypertension 79376899 I10 Review of blood pressure reveals suboptimal control. Last visit it was recommende d she increase losartan to 50 mg every afternoon and 25 mg every morning although patient reports she was unaware of increase. She will start increase at this time. Target blood pressure 130/80 or less. She is having issues with [facility] , will resend referral. Hyperlipidemia 92753646 E78.00 On statin therapy. Managed by primary. Syncope 203873757 R55 No further syncope. Takotsubo cardiomyopathy 265302236 I51.81 Heart catherizat ion performed on 12/03/2017 revealed minimal coronary artery disease and LVEF estimated at 35-40%. Echocardio gram performed February 2019 revealed preserved LV function. Estimated ejection fraction 55-60 %. Electrocar diogram abnormal 962733785 R94.31 Stable/unc hanged. Cerebral meningioma 189 [address] Biggs. Status post surgical resection of meningioma . Memory impairment 525368 006 R41.3 Worsening memory impairment since meningioma resection. She will follow up with neurology regarding this. Seizure disorder 3810489 02 G40.909 S/P seizure. Managed by neuro. No further seizures status post meningioma resection. Morbid obesity 388063233 E66.01 Healthy diet discussed. Difficulty swallowing 28 2914661 R13.10 Resolved. [id number] [facility]arly [facility] [address] [place] [address] 01/22/2022 16:12:09 01/22/2022 16:31:24 Essential hypertension 25469627 I10 Review of blood pressures show mostly borderline but acceptable control. We will continue current meds. Hyperlipidemia 11378028 E78.00 On statin therapy. Managed by primary. Syncope 402272630 R55 No further syncope. Takotsubo cardiomyopathy 528360437 I51.81 Heart catherizat ion performed on 12/03/2017 revealed minimal coronary artery disease and LVEF estimated at 35-40%. Echocardio gram performed February 2019 revealed preserved LV function. Estimated ejection fraction 55-60 %. Electrocar diogram abnormal 558209727 R94.31 No ekg at todays visit Cerebral meningioma 1891 [address] Biggs. Status post surgical resection of meningioma . Memory impairment 589658 006 R41.3 Worsening memory impairment since meningioma resection. She will follow up with neurology regarding this. Seizure disorder 9405223 02 G40.909 S/P seizure. Managed by neuro. No further seizures status post meningioma resection. Morbid obesity 527285021 E66.01 Healthy diet discussed. Difficulty swallowing 28 1339231 R13.10 Resolved. Dehydration 20477026 E86 .0 I believe this patient is intravascu larly depleted. I have counseled her to increase her oral intake of water and decrease caffeine and alcohol [id number] RAY Guzman [facility] [address] [place] [address] 5 08/28/2022 13:08:28 08/28/2022 14:58:39 Essential hypertension 20241896 I10 Review of blood pressures show mostly borderline but acceptable control. We will continue current meds. Hyperlipidemia 09970420 E78.00 On statin therapy. Managed by primary. Takotsubo cardiomyopathy 509573400 I51.81 Heart catherizat ion performed 12/03/2017 revealed minimal coronary artery disease and LVEF estimated at 35-40%. Echocardio gram performed February 2019 revealed preserved LV function. Estimated ejection fraction 55-60%. Electrocar diogram abnormal 436725972 R94.31 No EKG at today's visit. Cerebral meningioma 1891 [address] Biggs. Status post surgical resection of meningioma . Memory impairment 830112 006 R41.3 Worsening memory impairment since meningioma resection. She will follow up with neurology regarding this. Seizure disorder 1816318 02 G40.909 S/P seizure. Managed by neuro. No further seizures status post meningioma resection. Morbid obesity 568583349 E66.01 Healthy diet discussed. Difficulty swallowing 28 0690424 R13.10 Resolved. Dehydration 71377681 E86 .0 Counseled to increase her oral intake of water and decrease caffeine and alcohol. Near syncope 135350537 R 55 Patient with frequent lightheade dness and one episode of near syncope. Currently undergoing neurologic evaluation . Recent blood work unremarkab le. Plan carotid US, echo and 48 hour holter monitor. Additional ly recommend patient increase hydration. [id number] RAY Guzman [facility] [address] [place] [address] 5 10/30/2022 12:50:33 10/30/2022 13:35:04 Takotsubo cardiomyopathy 888236702 I51.81 Heart catherizat ion performed 12/03/2017 revealed minimal coronary artery disease and LVEF estimated at 35-40%. Echocardio gram performed February 2019 revealed preserved LV function. Estimated ejection fraction 55-60%. Essential hypertension 80411434 I10 Review of blood pressures show mostly borderline but acceptable control. We will continue current meds. Hyperlipidemia 36496916 E78.00 On statin therapy. Managed by primary. Electrocar diogram abnormal 674404203 R94.31 No EKG at today's visit. Cerebral meningioma 1891 [address] Biggs. Status post surgical resection of meningioma . Memory impairment 180436 006 R41.3 Worsening memory impairment since meningioma resection. She will follow up with neurology regarding this. Seizure disorder 1793846 02 G40.909 S/P seizure. Managed by neuro. No further seizures status post meningioma resection. Morbid obesity 692918554 E66.01 Healthy diet discussed. Difficulty swallowing 28 3409068 R13.10 Resolved. Dehydration 36498619 E86 .0 Counseled to increase her oral intake of water and decrease caffeine and alcohol. Near syncope 458619428 R 55 Patient with frequent lightheade dness [...] syncopal episodes. Plan conservati ve management . [id number] Charly [facility] MD [facility] [address] [facility] [address] [place] [address] 06/12/2023 11:11:21 06/12/2023 12:32:47 Syncope 827591531 R55 No further syncope. Takotsubo cardiomyopathy 396987615 I51.81 Heart catherizat ion performed on 12/03/2017 revealed minimal coronary artery disease and LVEF estimated at 35-40%. Echocardio gram performed February 2019 revealed preserved LV function. Estimated ejection fraction 55-60 %. Patient with shortness of breath as well as some lower extremity edema.Rece nt echo ejection fraction 60% Essential hypertension 77305964 I10 Excellent control of blood pressure. Hyperlipidemia 04237007 E78.00 On statin therapy. Managed by primary. Electrocar diogram abnormal 103925539 R94.31 No EKG at today's visit. Cerebral meningioma 1891 [address] Reynolds Status post surgical resection of meningioma . Memory impairment 862456 006 R41.3 Worsening memory impairment since meningioma resection. She will follow up with neurology regarding this. Seizure disorder 9412190 02 G40.909 S/P seizure. Managed by neuro. No further seizures status post meningioma resection. Morbid obesity 895263319 E66.01 Healthy diet discussed. Difficulty swallowing 28 6153514 R13.10 Resolved. Dehydration 64412844 E86 .0 Counseled to increase her oral intake of water and decrease caffeine and alcohol. Near syncope 588082087 R 55 Patient with frequent lightheade dness [...] Plan conservati ve management . Angina pectoris [id number] 0 I20.89 Patient with exertional dyspnea concerning [...] specificit y in this patient population . [id number] Charly Wallace MD [facility] - OFFICE [address] [place] [address],[facility] [address] [place] [address] 07/28/2023 10:04:16 07/28/2023 10:42:05 Takotsubo cardiomyopathy [id number] I51.81 Heart catherizat ion performed on 12/03/2017 revealed minimal coronary artery disease and LVEF estimated at 35-40%. Echocardio gram performed February 2019 revealed preserved LV function. Estimated ejection fraction 55-60 %. Patient with shortness of breath as well as some lower extremity edema.Rece nt echo ejection fraction 60%-65% Hyperlipidemia 31701891 E78.00 On statin therapy. Managed by primary. Angina pectoris [id number] 0 I20.89 Patient with exertional dyspnea concerning [...] disease. Plan conservati ve management . Syncope 851637768 R55 No further syncope. Essential hypertension 06307774 I10 Patient with borderline hypotensio n. Will decrease losartan to 25 mg p.o. nightly. Electrocar diogram abnormal 767293147 R94.31 No EKG at today's visit. Cerebral meningioma 1891 [address] Reynolds Status post surgical resection of meningioma . Memory impairment 086514 006 R41.3 Worsening memory impairment since meningioma resection. She will follow up with neurology regarding this. Seizure disorder 7055996 02 G40.909 S/P seizure. Managed by neuro. No further seizures status post meningioma resection. Morbid obesity 153659181 E66.01 Healthy diet discussed. Difficulty swallowing 28 4164580 R13.10 Resolved. Dehydration 31442721 E86 .0 Counseled to increase her oral intake of water and decrease caffeine and alcohol. Near syncope 602887504 R 55 Patient with frequent lightheade dness [...] . Obstructiv e sleep apnea of adult 6063341755 103 G47.33 Pulmonolog ist referral. Additional ly this patient had a recent pneumonia and requires pulmonary care. She is currently on home oxygen. [id number] RAY Guzman [facility] - OFFICE [address] [facility],[address] [address] 10/30/2023 12:47:32 10/30/2023 13:24:21 Takotsubo cardiomyopathy 428201938 I51.81 Heart catherizat ion performed on 12/03/2017 revealed minimal coronary artery disease and LVEF estimated at 35-40%. Patient with shortness of breath as well as some lower extremity edema. Most recent echo ejection fraction 60%-65%. Hyperlipidemia 78350505 E78.00 On statin therapy. Managed by primary. Angina pectoris 03121822 0 I20.89 Patient with exertional dyspnea. Cardiac PET no evidence of epicardial disease however there is evidence of microvascu lar disease. Plan conservati ve management . Syncope 357661994 R55 No further syncope. Essential hypertension 80004636 I10 Patient with mildly elevated blood pressure [...] current meds for now. Electrocar diogram abnormal 799427778 R94.31 No EKG at today's visit. Cerebral meningioma 1891 [address] Reynolds Status post surgical resection of meningioma . Memory impairment 102880 006 R41.3 Worsening memory impairment since meningioma resection. Follows with neurology regarding this. Seizure disorder 5190530 02 G40.909 S/P seizure. Managed by neuro. No further seizures status post meningioma resection. Morbid obesity 542451132 E66.01 Healthy diet discussed. Difficulty swallowing 28 0901278 R13.10 Resolved. Dehydration 27204988 E86 .0 Counseled to increase her oral intake of water and decrease caffeine and alcohol. Near syncope 383717849 R 55 Patient with frequent lightheade dness [...] . Obstructiv e sleep apnea of adult 1826559547 103 G47.33 She is currently on home [...] 08/28/2022 1 [place] Silvana F Payam [id number] Silvana Payam 08/28/2022 2 [employer] OPTIONS (MEDICARE SUPPLEMENT) Silvana F Villanueva Payam [id number] Silvana Payam 10/30/2022 1 [place] Silvana F Payam [id number] Silvana Payam 10/30/2022 2 [employer] OPTIONS (MEDICARE SUPPLEMENT) Silvana F Villanueva Payam [id number] Silvana Payam 06/12/2023 1 [place] Silvana F Payam [id number] Silvana Payam 06/12/2023 2 [employer] OPTIONS (MEDICARE SUPPLEMENT) Silvana F Villanueva Payam [id number] Silvana Payam 07/28/2023 1 [place] Silvana F Payam [id number] Silvana Payam 07/28/2023 2 [employer] OPTIONS (MEDICARE SUPPLEMENT) Silvana F Villanueva Payam [id number] Silvana Payam 10/30/2023 1 [place] Silvana F Payam [id number] Silvana Payam 10/30/2023 2 [employer] OPTIONS (MEDICARE SUPPLEMENT) Silvana F Villanueva Payam [id number] Silvana Payam Notes Date Note Type Note [...] breathPt denies pedal edema RAY Guzman [address] [place] [address],[place] [address], [place], [address], [facility] 08/28/2022 14:58:26 10/30/2022 text/html Pt is here for t est follow up.Previous complaint of lightheadedness has improved since last visitPt denies chest pain or shortness of breath.Pt denies pedal edema. RAY Guzman [address] [place] [address],[facility], [place], [address], [facility] 10/30/2022 13:34:51 06/12/2023 text/html Patient is here today for 6 month follow up.Patient reports having shortness of breath.Patient reports having lightheadedness and dizziness sometimes.Patient denies chest pain.Patient denies pedal edema. Charly Wallace MD [address] [place] [address], [place], [address], [facility] 06/12/2023 20:40:19 07/28/2023 text/html Pt is here for hospital follow up.Patient recently hospitalized with sepsis and Klebsiella pneumonia. She is improving. Urgent recent cultures were negative. Patient underwent cardiac PET recently as well as echocardiography. Results to be discussed in assessment and plan. Charly Wallcae MD [address] [place] [address],[facility], [place], [address], [facility] 07/28/2023 10:41:38 10/30/2023 text/html Patient is here today for 3 month follow up visitReports sob has improved.Denies chest pain.Average SBP 110s-120s and DBP 60s.No other complaints at this time. RAY Guzman [address] [place] [address],[facility], [place], [address], [facility] 10/30/2023 13:24:09 OBGyn Episode No OBEpisode recorded.
--- OUTSIDE RECORDS SUMMARY | 2024-08-03 02:40 | XMS_ITS | Data Portability ---
Author Organization [place] [facility] [place] Address [address] [place] [address] Assessment Encounter Date Assessment Date Assessment LastModified [...] Plan: a. Discontinue clobetasol as advised by weapons specialist. b. Follow weapons specialist's recommendations for alternative creams. 7. Gastroesophageal reflux [...] None recorded. Lab culture, urine 2023 024 bscheLeap Motion [facility], [address] [place] [address], [address], [address], 5 05:15:08 urinalysis, complete 2023 024 bsStereobot [facility], [address] [place] [address], [facility] [address], [address], 5 05:15:04 Referral None recorded. Procedures None recorded. Surgeries None recorded. Imaging None recorded. Medication Orders tirzepatide (weight loss) 10 mg/0.5 mL subcutaneou s pen injector 2023 024 bschein [facility] [address], [address], [place], [address], 5 06:22:59 oxybutynin chloride ER 5 mg tablet,exte nded release 24 hr 2023 024 bschein [facility] [address], [address], [place], [address], 5 06:21:39 Estrace 0.01% (0.1 mg/gram) vaginal cream 2023 024 ANTHONY [facility] [address], [address], [place], [address], 4 13:11:38 metronidazo le 500 mg tablet 2023 024 ANTHONY [facility] [address], [address], [place], [address], 4 13:14:39 clobetasol 0.05 % scalp solution 2023 024 bschein [facility] [address], [address], [place], [address], 5 06:19:15 selenium sulfide 2.25 % shampoo 2023 024 bschein [facility] [address], [address], [place], [address], 5 06:19:36 nystatin 100,000 unit/gram topical cream 2023 024 bschein [facility] [address], [address], [place], [address], 5 06:19:59 clobetasol 0.05 % topical cream 07/23/ 2024 07/23/2 024 bschein [facility] Anabel Montero, [address] [place], [address], 06:18:36 clobetasol 0.05 % topical gel 2023 024 bschein [facility] Anabel Montero, [address] [place], [address], 06:18:56 Patient TargetsNo targets recorded. Patient Instructions Encounter Date Encounter Id Patient Instructions Last Modified By Organization Details Last Modified Time 09/22/2023 [id number] epilepsy: care instructions bschein Not available 04/19/2024 [...] our office. Warm regards, Noe Camp MD Nursing Informatics Specialist [facility] Not available 09/22/2023 16:44:06 10/23/2023 [id number] atrophic vaginit is: care instructions bschein Not [...] 07:16:02 Date: Fri From: Dr. Noe Camp, Nursing Informatics Specialist, Family [facility], Thank you for visiting today [...] you soon. Best regards, Dr. Noe Camp Nursing Informatics Specialist, Family Medicine Not available 10/23/2023 14:51:31 11/19/2023 [id number] atrophic vaginit is: care instructions bschein Not [...] should no longer be used; follow your weapons specialist's advice regarding alternative creams. - Maintain current [...] a target weight of 210-220 pounds by [place]. - General Health: - Your recent lab [...] you again soon. Sincerely, Dr. Noe Camp, Nursing Informatics SpecialistAnger Control Counselor: Family Medicine Not available 11/19/2023 13:20:25 12/22/2023 [id number] sleep apnea: car e instructions bschein Not [...] negati ve normal Not Available [facility] [address] [place], [address], 10/24/2023 19:01:24 10/23/19 24 10/24/2023 SURES WAB(R ) ADVAN FLORIDALMA VAGIN ITIS PLUS, TMA alfredo species NOT DETECT ED not detect ed normal Not Available [facility] [place] [facility] [address] [place], [address], 10/24/2023 19:01:24 10/23/19 24 10/24/2023 SURES WAB(R [...] resul t. Not Available [facility] [place] [facility] [address], [place], [address], 10/24/2023 19:01:24 10/23/19 24 10/24/2023 SURES WAB(R ) ADVAN FLORIDALMA VAGIN ITIS PLUS, TMA trichomonas vaginalis (TV), tma NOT DETECT ED not detect ed normal Not Available [facility] [place] [facility] [address], [place], [address], 10/24/2023 19:01:24 10/23/19 24 10/24/2023 SURES WAB(R ) ADVAN FLORIDALMA VAGIN ITIS PLUS, TMA chlamydia trachomatis RNA, tma, urogenital NOT DETECT ED not detect ed normal Not Available [facility] [place] [facility] [address], [place], [address], 10/24/2023 19:01:24 10/23/19 24 10/24/2023 SURES WAB(R ) ADVAN FLORIDALMA VAGIN ITIS PLUS, TMA neisseria gonorrhoeae RNA, tma, urogenital NOT DETECT ED not detect ed normal For addit ional infor maykel gutierrez refer to https ://ed ucati on.qu lazarus [employer]. [employer]/f aq/FA Q154 (This link is being provi ded for infor ida horn/ edgardo gupta purpo ses only. ) Not Available [facility] [place] [facility] [address], [place], [address], 10/24/2023 19:01:24 10/23/19 24 10/25/2023 URINA LYSIS , COMPL ETE color YELLOW yellow normal Not Available [facility] [place] [facility] [address], [place], [address], 10/25/2023 01:50:50 10/23/1910/2410/25/2023 URINA LYSIS , COMPL ETE appearance CLEAR clear normal Not Available [facility] [place] [facility] [address], [place], [address], 10/25/2023 01:50:50 10/23/1910/25/2023 URINA LYSIS , COMPL ETE specific gravity 1.013 1.001- 1.035 normal Not Available [facility] [place] [facility] [address], [place], [address], 10/25/2023 01:50:50 10/23/19 24 10/25/2023 URINA LYSIS , COMPL ETE pH 6.0 5.0-8. 0 normal Not Available [facility] [place] [facility] [address], [place], [address], 10/25/2023 01:50:50 10/23/19 24 10/25/2023 URINA LYSIS , COMPL ETE glucose NEGATI VE negati ve normal Not Available [facility] [place] [facility] [address], [place], [address], 10/25/2023 01:50:50 10/23/19 24 10/25/2023 URINA LYSIS , COMPL ETE bilirubin NEGATI VE negati ve normal Not Available [facility] [place] [facility] [address], [place], [address], 10/25/2023 01:50:50 10/23/19 24 10/25/2023 URINA LYSIS , COMPL ETE ketones NEGATI VE negati ve normal Not Available [facility] [place] [facility] [address], [place], [address], 10/25/2023 01:50:50 10/23/19 24 10/25/2023 URINA LYSIS , COMPL ETE occult blood 2+ negati ve abnormal Not Available [facility] [place] [facility] [address], [place], [address], 10/25/2023 01:50:50 10/23/19 24 10/25/2023 URINA LYSIS , COMPL ETE protein NEGATI VE negati ve normal Not Available [facility] [place] [facility] [address], [place], [address], 10/25/2023 01:50:50 10/23/19 24 10/25/2023 URINA LYSIS , COMPL ETE nitrite NEGATI VE negati ve normal Not Available [facility] [place] [facility] [address], [place], [address], 10/25/2023 01:50:50 10/23/19 24 10/25/2023 URINA LYSIS , COMPL ETE leukocyte esterase NEGATI VE negati ve normal Not Available [facility] [address], [place], [address], 10/25/2023 01:50:50 10/23/19 24 10/25/2023 URINA LYSIS , COMPL ETE WBC NONE SEEN /hpf < or = 5 normal Not Available [facility] [place] [facility] [address], [place], [address], 10/25/2023 01:50:50 10/23/19 24 10/25/2023 URINA LYSIS , COMPL ETE RBC 3-10 /hpf < or = 2 abnormal Not Available [facility] [place] [facility] [address], [place], [address], 10/25/2023 01:50:50 10/23/19 24 10/25/2023 URINA LYSIS , COMPL ETE squamous epithelial cells 0-5 /hpf < or = 5 Not Available [facility] [place] [facility] [address], [place], [address], 10/25/2023 01:50:50 10/23/19 24 10/25/2023 URINA LYSIS , COMPL ETE bacteria NONE SEEN /hpf none seen normal Not Available [facility] [address], [place], [address], 10/25/2023 01:50:50 10/23/19 24 10/25/2023 URINA LYSIS , COMPL ETE hyaline cast NONE SEEN /lpf none seen normal Not Available [facility] [place] [facility] [address], [place], [address], 10/25/2023 01:50:50 10/23/19 24 10/25/2023 URINA LYSIS , COMPL ETE note This urine was jessica zed for the prese nce of WBC, RBC, bacte tonie, casts , and other forme d eleme nts. Only those eleme nts seen were repor lucas. Not Available [facility] [place] [facility] [address], [place], [address], 10/25/2023 01:50:50 10/23/19 24 10/25/2023 CULTU RE, URINE , ROUTI NE culture, urine, routine SEE NOTE CULTU RE, URINE , ROUTI NE Micro Numbe r: [id number] Test Statu s: Final Speci men [...] port Tube. Not Available [facility] [place] [facility] [address], [place], [address], 10/25/2023 01:50:53 10/09/19 24 10/09/2023 DEXA No observ ation record ed. [facility] [address], [place], [address], 04/19/2024 04:39:48 10/14/19 24 10/09/2023 MAMMO , scree chuck, digit al, bilat eral No observ ation record ed. [facility] [address], [place], [address], 04/19/2024 04:39:53 10/15/19 24 10/15/2023 US, breas t, unila teral No observ ation record ed. [facility] [address], [place], [address], 04/19/2024 04:39:44 Result Notes None recorded. Problems Name Problem SNOMED Code Status Onset Date Resolution Date Notes Provider Name and Address Organization Details Recorded Time Morbid obesity 474120180 Active 2022 Not Available [facility] 4 18:10:59 Osteoarthri tis 125582316 Active 2020 Not Available [facility] 4 18:10:59 Hypertensiv e disorder 40036881 Active 2020 Not Available [facility] 4 18:10:59 Hypothyroid ism 00318951 Active 2020 Not Available [facility] 4 18:10:59 Gastroesoph ageal reflux disease 391052617 Active 2020 Not Available [facility] 4 18:10:59 Hyperlipide juany 76096564 Active 2020 Not Available [facility] 4 18:10:59 Essential tremor 545448833 Active 2020 Not Available [facility] 4 18:10:59 Benign meningioma 529785980 Active 2020 Not Available [facility] 4 18:10:59 Depressive disorder 85358239 Active 2020 Not Available [facility] 4 18:10:59 Seizure disorder 830718513 Active 2020 Not Available [facility] 4 18:10:59 Acute bronchitis 15715201 Active 2022 Not Available [facility] 4 18:10:59 Obesity 468578139 Active [address] [facility] 4 18:10:59 Prediabetes 437096588 Active [address] [facility] [address], [place], [address], [place] [facility] 4 13:09:55 Congestive heart failure 78747735 Active [address], [place], [address], [place] [facility] 4 13:06:49 Obstructive sleep apnea syndrome 64448210 Active [address], [place], [address], [place] [facility] 4 13:19:37 Vaginitis 27009293 Active [address], [place], [address], [place] [facility] 4 13:35:52 Atopic dermatitis 35838457 Active [address], [place], [address], [place] [facility] 4 15:30:53 Herpes zoster 1007647 Active [address], [place], [address], [place] [facility] 4 15:32:23 Pruritic rash 84588740 Active [address], [place], [address], [place] [facility] 4 15:34:37 Seborrheic keratosis 534653978 Active [address], [place], [address], [place] [facility] 4 15:39:14 Seborrheic dermatitis of scalp 168707076 Active 2023 [facility] [address], [place], [address], [place] [facility] 4 14:41:41 Acute cystitis 10516419 Active 2023 [facility] [address], [place], [address], [place] [facility] 4 14:47:31 Atrophic vaginitis 72231880 Active 2023 [facility] [address], [place], [address], [place] [facility] 4 15:18:29 Bacterial vaginosis 475490172 Active 2023 [facility] [address], [place], [address], [place] [facility] 4 15:18:43 Candidiasis of vagina 64913303 Active 2023 [facility] [address], [place], [address], [place] [facility] 4 15:18:49 Type 2 diabetes mellitus 75156201 Active [address] [facility] [address] [address], [place], [address], [place] [facility] 4 19:56:34 Overactive urinary bladder 942337645 Active [address] [facility] [address] [facility] [address], [place], [address], [place] [facility] 4 13:12:56 Intentional weight loss 263112565 Active 2023 Noe Camp MD [address], [place], [address], [place] [facility] 13:22:00 Problem Notes None recorded. Procedures Surgical History Date Name Laterality Status Provider Name and Address Organization Details Recorded Time 024 AWV completed MD Jacob [address], [place], [address], [place] [facility] 06/03/2023 13:30:05 023 AWV completed Jessika Sanders NP [address], [place], [address], [place] [facility] 04/23/2022 13:21:18 022 AWV completed MD [address], [place], [address], [place] [facility] 04/03/2021 15:13:15 021 AWV completed Henry Mullins [place] Brendan [facility] 01/23/2021 13:41:04 021 Knee Replacement completed Joaquin Akhtar [place] B[facility] 10/03/2020 15:20:10 016 Knee Replacement completed Joaquin Cardona [facility] 10/03/2020 15:20:25 977 Cholecystectomy completed Joaquin Akhtar [place] Brendan [facility] 10/03/2020 15:19:41 Imaging Results Imaging Date Name Status [facility]Modified by [facility] Details LastModified Time 10/09/2023 DEXA completed [facility] [address], [place], [address], 04/19/2024 04:39:48 10/09/2023 MAMMO, screening, digital, bilateral completed bschein [facility] [address], [place], [address], 04/19/2024 04:39:53 10/15/2023 US, breast, unilateral completed bschein [facility] [address], [place], [address], 04/19/2024 04:39:44 Procedure Notes None recorded. Medical Equipment None Reported. Allergies Allergen ID Allergen Name Allergen Category Reaction Reaction Severity Criticality Documentation Date Start Date Code Code System Note Provider Name and Address Organization Details Recorded Time 5367 ciproflox acin medicatio n Not available Not available Not available 09/25/20222022 2551 RxNorm ISA Welch - [facility] [place] [facility] [place] 14:06:59 Medications Name Sig Start Date Stop [...] Available Not Available No t Available Intrinsi X89-Gaxrzz 500 mcg-20 mg-800 mcg tablet Take 1 [...] Updated DateTime 4 162.56 cm 42.1 kg/m2 272992. 13 g 98.2 [degF] 95 % 95 % 73 /min 122 mm[Hg] 78 mm[Hg] Joaquin Hassan MD [facility] 4 15:53:36 Date Recorded Body height Oxygen saturation Oxygen saturation in Arterial blood by Pulse oximetry Body temperature Heart rate Systolic blood pressure Diastolic blood pressure Provider Name and Address Organization Details Last Updated DateTime 4 162.56 cm 90 % 90 % 98.6 [degF] 66 /min 118 mm[Hg] 70 mm[Hg] Nayeli Hassan MD [facility] 4 15:15:52 Date Recorded Body height Body mass index (BMI) Body weight Body temperature Oxygen saturation Oxygen saturation in Arterial blood by Pulse oximetry Systolic blood pressure Diastolic blood pressure Provider Name and Address Organization Details Last Updated DateTime 4 162.56 cm 41.5 kg/m2 726342. 35 g 97.4 [degF] 91 % 91 % 110 mm[Hg] 60 mm[Hg] Alonzo Hassan MD [facility] 4 14:11:19 Date Recorded Body height Body mass index (BMI) Body weight Oxygen saturation Oxygen saturation in Arterial blood by Pulse oximetry Body temperature Heart rate Systolic blood pressure Diastolic blood pressure Provider Name and Address Organization Details Last Updated DateTime 4 162.56 cm 41.2 kg/m2 242392. 17 g 92 % 92 % 98.1 [degF] 73 /min 110 mm[Hg] 58 mm[Hg] Renetta Hassan MD [facility] 4 13:01:35 Date Recorded Body height Body mass index (BMI) Body weight Body temperature Heart rate Oxygen saturation Oxygen saturation in Arterial blood by Pulse oximetry Systolic blood pressure Diastolic blood pressure Provider Name and Address Organization Details Last Updated DateTime 4 162.56 cm 42.1 kg/m2 916276. 13 g 98.3 [degF] 79 /min 94 % 94 % 102 mm[Hg] 60 mm[Hg] Alonzo Hassan MD [facility] 4 13:05:58 Social History Question Answer Notes LastModified by Organizat ion Details LastModified Time Tobacco Smoking Status Never Smoker ISA Welch MD [facility] 10/03/2020 15:17:48 Do You Have An Advance Directive? Yes Information not available 04/03/2021 Are You Blind Or Do You Have [...] Your Home? Yes Information not available 04/03/2021 Sex: Unknown Functional Status Question Answer Note LastModified by Organizat ion Details LastModified Time What is your level of alcohol consumption? Occasional Information not available 10/03/2020 Do you have difficulty walking or climbing stairs? Yes cane Information not available 06/03/2023 Do you have transportation difficulties? No Information not available 01/23/2021 Are you able to walk? YESASSIST Information not available 01/23/2021 Do you have difficulty doing errands alone? Yes Information not available 06/03/2023 Are you able to care for yourself? Yes Information n ot available 01/23/2021 Do you have difficulty dressing or bathing? No Information not available 01/23/2021 What is your exercise level? None Information not available 06/03/2023 Mental Status Question Answer Note LastModified by Organizat ion Details LastModified Time Do you feel stressed (tense, restless, nervous, or anxious, or unable to sleep at night)? [id number] Information not available 04/03/2021 Do you have difficulty concentrating, remembering or [...] 22 completed Joaquin delaney [place] [facility] 10/05/2021 15:10:39 Influenza, split virus, trivalent, [...] [facility] 04/29/2023 14:45:32 Pneumococcal conjugate PCV 13 12/06/20 17 completed Not Available [facility] 04/29/2023 14:45:32 Influenza, high-dose, trivalent, PF 01/09/20 18 completed [facility] Available [facility] 04/29/2023 14:45:32 Influenza, high-dose, trivalent, PF 01/03/20 16 completed [facility] Available [facility] 04/29/2023 14:45:32 Influenza, split virus, trivalent, preservative 01/03/20 10 completed Not Available [facility] 04/29/2023 14:45:32 Influenza, high-dose, trivalent, PF 12/23/19 18 completed Not Available [facility] 04/29/2023 14:45:32 Influenza, split virus, trivalent, preservative 01/15/20 11 completed Not Available [facility] 04/29/2023 14:45:32 pneumococcal polysaccharide PPV23 01/23/20 10 completed Not Available [facility] 04/29/2023 14:45:32 pneumococcal polysaccharide PPV23 03/24/19 11 completed Not Available [facility] 04/29/2023 14:45:32 Influenza, high-dose, trivalent, PF 12/22/19 15 completed Not Available [facility] 04/29/2023 14:45:32 Influenza, split virus, trivalent, preservative 12/21/19 09 completed Not Available [facility] 04/29/2023 14:45:32 COVID-19, mRNA, LNP-S, PF, 100 mcg/0.5mL dose or 50 mcg/0.25mL dose 05/19/19 21 completed Not Available [facility] 04/29/2023 14:45:32 Influenza, high-dose, quadrivalent, PF 12/27/19 22 completed Isauro Rao MD [address], [place], [address], [place] [facility] 12/27/2021 08:42:07 zoster recombinant 07/16/19 23 completed MD [address], [place], [address], [place] [facility] 07/15/2022 21:37:09 Influenza, high-dose, quadrivalent, PF 12/28/19 23 completed Isauro Rao MD [facility] [address], [place], [address], [place] rBendan Hassan MD [facility] 12/29/2022 12:01:44 RSV, recombinant, protein subunit RSVpreF, adjuvant reconstituted, 0.5 mL, PF 12/28/19 23 completed Isauro Rao MD [address] [place], [place] [address], [place], [address], [place] Brendan Hassan MD [facility] 12/29/2022 12:01:44 COVID-19, mRNA, LNP-S, PF, 100 mcg/0.5mL dose or 50 mcg/0.25mL dose 01/24/20 21 completed ISA Welch MD [facility] 01/23/2021 14:19:53 Past Encounters Encounter ID Performer Location Encounter Start Date Encounter Closed Date Diagnosis/Indication Diagnosis SNOMED-CT Code Diagnosis ICD10 Code Diagnosis Note [id number] MD PRIME LACI Winslow [facility] [address] [place] [address] [place] [address] 10/03/2020 15:04:40 10/03/2020 16:00:19 Benign meningioma 088022889 D32.9 Continue with her antiseizur e medicine. Depressive disorder 9272 9007 F32.9 She fell onto depression after her daughter from opiate overdose. She is going to continue with paroxetine which she needs a refill for today. Essential tremor 2114025 09 G25.0 Currently on pramipexol e with change controls her essential tremor quite well. Gastroesop hageal reflux disease 211370889 K21.9 Well-contr olled on PPI currently Hyperlipidemia 04803452 E78.5 She does need a lipid panel lab obtained. Hypertensive disorder 38 848077 I10 We will check CBC CMP and TSH. Hypothyroidism 27939483 E03.9 Check a TSH. Osteoarthritis 274904335 M19.90 Tylenol as needed she is using her own home physical therapy regimen. Seizure disorder 8854702 02 G40.909 Currently on Lamictal from previous brain surgery Type 2 olivia betes mellitus 29920168 E11.9 Excellent control based on her last hemoglobin A1c. [id number] MD PRIME LACI Winslow OF [facility] Office [address] [place], [place] [address]Ant DOUGLAS [address] 8 10/05/2020 10:18:00 10/05/2020 10:36:44 [id number] MD PRIME LACI Winslow OF [facility] Office [address] [place] [address] [address] [place] [id number] 10/20/2020 13:13:00 10/20/2020 15:35:18 Acute sinusitis 44402836 J01.90 start augmentin 875mg po bid for 5 days and dexamethas one 4 mg for 5 days Hyperlipidemia 53182009 E78.5 Start crestor Hypothyroidism 22148445 E03.9 TSH at target Type 2 olivia betes mellitus 55201849 E11.9 Excellent control based on her last hemoglobin A1c. Loose stool 906253410 R1 9.5 Check stool studies. [id number] MD PRIME LACI Winslow OF [facility] Office [address] [place], [place] [address]Ant DOUGLAS [address] [place] [id number] 8 11/28/2020 16:37:31 11/28/2020 20:42:54 Hypertensive disorder 60771717 I10 At target Skin lesion 06305224 L98 .9 Will have this removed. [id number] MD PRIME LACI Winslow [facility] [facility] Office [address] [place] [address] CATARINA DOUGLAS [address] 8 01/12/2021 13:57:46 01/12/2021 15:04:15 Essential tremor 805866994 G25.0 Currently on pramipexol e. She went to neurologis t yesterday and was invreased to 3 times a day and 250 Gastroesop hageal reflux disease 278177362 K21.9 Well-contr olled on PPI currently Hyperlipidemia 62203249 E78.5 Start crestor Hypertensive disorder 38 372788 I10 At target Seizure disorder 7500782 02 G40.909 Currently on Lamictal from previous brain surgery Benign meningioma 285895 006 D32.9 Continue with her antiseizur e medicine. Pain of ear 192456564 H9 2.09 Concern of a recurrent meningioma . Will check a CT to r/o that as a source of the pain. Obstructiv e sleep apnea syndrome 73788291 G47.33 Has ANUSHA. She has not been using her CPAP because it bugs her. 5506 MD PRIME LACI Winslow [facility] DOUGLAS [address] [place] [address] 01/23/2021 13:33:20 01/23/2021 14:20:59 Gastroesophageal reflux disease 744891506 K21.9 Well-contr olled on PPI currently Hyperlipidemia 06747469 E78.5 Start crestor Hypertensive disorder 38 620721 I10 At target Hypothyroidism 87295684 E03.9 TSH at target Seizure disorder 5890841 02 G40.909 Currently on Lamictal from previous brain surgery Active or passive immunization 724038611 Z23 update COVID vax Obstructiv e sleep apnea syndrome 39104973 G47.33 Has ANUSHA. She has not been using her CPAP because it bugs her. 5858 MD PRIME LACI Winslow [facility] [address] [place], [place] [address]Ant DOUGLAS [address] [place] [address] 02/06/2021 14:31:32 02/06/2021 15:27:11 Benign meningioma 630139445 D32.9 Continue with her antiseizur e medicine. Depressive disorder 2005 9007 F32.9 She fell onto depression after her daughter from opiate overdose. She is going to continue with paroxetine which she needs a refill for today. Gastroesop hageal reflux disease 283001624 K21.9 Well-contr olled on PPI currently Hyperlipidemia 45864856 E78.5 Start crestor Hypertensive disorder 38 890201 I10 At target Hypothyroidism 85651363 E03.9 TSH at target Seizure disorder 3792311 02 G40.909 Currently on Lamictal from previous brain surgery Screening mammography 24 288103 Z12.31 declined Colorectal cancer screening not done 1990643437 100 Z53.9 UTD last lower endo 2 years ago. Active or passive immunization 260156978 Z23 update COVID vax and flu 7735 MD PRIME LACI Winslow OF [facility] Office [address] [place], [place] [address]Atn DOUGLAS [address] [place] [address] 04/03/2021 13:59:39 04/03/2021 15:33:18 Adult health examination 462737189 Z00.00 Patient here for Medicare Annual Wellness visit. See above discussion Advance care planning 71 7831581 Z71.89 I have discussed with patient/PO A [...] patient is Full Code. Depression screening 171 501162 Z13.31 Negative PHQ9, re-assess annually Screening for cardiovascular system disease 555749145 Z13.6 Reviewed with patient BP trend in the office, discussed about aspirin use, healthy lifestyle modificati ons, mediterran an or DASH diet, low salt <2g daily. Time spent counseling 10 min. Screening for alcohol abuse 935888645 Z13.39 Alcohol screening performed and is negative for substance abuse. I did ask her to cut down 9276 MD PRIME LACI Winslow OF [facility] Office [address] [place] [address] CATARINA DOUGLAS [address] [place] [address] 05/15/2021 14:21:23 05/15/2021 15:19:01 Fatigue 83986414 R53.83 C/O fatigue stop am primidone temporaril y Obstructiv e sleep apnea syndrome 51991152 G47.33 She is using the Bipap and sleeps but it is uncomforta ble. Refer to sleep med here. 13668 MD PRIME LACI Winslow OF [facility] Office [address] [place], [place] [address]Ant DOUGLAS [address] [place] [address] 06/07/2021 16:27:01 06/19/2021 17:11:34 Depressive disorder 84586297 F32.9 Currently on paroxetine . She is doing well on this, sleep is good. Essential tremor 7464914 09 G25.0 Currently on pramipexol e. Gastroesop hageal reflux disease 359997945 K21.9 Well-contr olled on PPI currently Hyperlipidemia 90294742 E78.5 On crestor. Diet discussed at length with patient. She is not able to exercise because her knee pain and balance problem. Hypertensive disorder 38 107180 I10 Patient is normotensi ve at home. Will not make any changes to her medication today. Hypothyroidism 29577199 E03.9 Last TSH was normal. On synthroid. Seizure disorder 8710678 02 G40.909 Currently on Lamictal from previous brain surgery History of total knee arthroplasty 3772675815 105 Z96.659 Patient is complainin g of having balance issues since her surgery. We will send her to physical therapy. Obstructiv e sleep apnea syndrome 35782716 G47.33 She is using the Bipap about 5 hours at night. Benign meningioma 381782 006 D32.9 Continue with her antiseizur e medicine. Her meningioma was removed without any difficulty and she has not had a seizure. Type 2 olivia betes mellitus 29646187 E11.9 Excellent control based on her last hemoglobin A1c. Her hemoglobin A1c was 5.6. 70988 MD PRIME LACI Winslow OF [facility] Office [address] [place], [place] [address]Ant DOUGLAS [address] [place] [address] 09/20/2021 15:15:16 09/20/2021 16:43:57 Essential tremor 229679980 G25.0 Currently on pramipexol e. Benign meningioma 382395 006 D32.9 Having an MRI needs lab Hyperlipidemia 19396416 E78.5 On crestor. Diet discussed at length with patient. She is not able to exercise because her knee pain and balance problem. Hypertensive disorder 38 598962 I10 Patient is normotensi ve at home. Will not make any changes to her medication today. Hypothyroidism 64546877 E03.9 Last TSH was normal. On synthroid. Seizure disorder 7797975 02 G40.909 Currently on Lamictal from previous brain surgery Candidiasis of vagina 72 935540 B37.3 88506 MD PRIME LACI Winslow OF [facility] Office [address] [place], [place] [address]Ant DOUGLAS [address] [place] [address] 10/05/2021 13:19:20 10/05/2021 14:02:29 Administration of SARS-CoV-2 antigen vaccine 465264870 Z23 1st booster administer ed to patient. She can take tylenol as needed for discomfort . Candidiasis of vagina 72 851096 B37.3 Patient has been using Dial soap in her vagina. Skin is very dry and red. There is a thin odorless discharge. I recommende d that she stops using soap or use some kind of vaginal soap like summer's sandeep. Also start boric acid suppositor ies to help restore the pH. Intertrigo 30475895 L30. 4 Start power. Patient is very clean but she has a pendulous abdomen. Start nystatin powder. 83925 MD PRIME LACI Winslow OF [facility] Office [address] [place] [address] CATARINA DOUGLAS [address] [place] [address] 10/22/2021 16:17:52 10/22/2021 17:02:37 Dyspnea 930189931 R06.00 Patient has been experienci ng SOB with ambulation . She had a cardiologi [facility] t recently and was told her heart was ok, neverthele ss she seems winded after walking short distance. Candidiasis of vagina 72 310926 B37.3 Start using Boric Acid, no soap, and start fluconazol e for 6 months once per week. Hypertensive disorder 38 786084 I10 BP slightly above goal of < 130/90. Patient is normotensi ve at home. No changes to medication . [id number] MD PRIME LACI Winslow OF [facility] Office [address] [place], [place] [address]Ant DOUGLAS [address] [place] [address] 12/26/2021 12:57:22 12/26/2021 13:15:03 Administration of influenza vaccine 93617753 Z23 MD PRIME LACI Winslow OF [facility] Office [address] [place], [place] [address]Ant DOUGLAS [address] [place] [address] 01/30/2022 14:10:45 01/30/2022 15:24:44 Fatigue 18696827 R53.83 Patient was advised to use a CPAP pillow to improve sleep quality. Paresthesia 24198894 R20 .2 Patient will start vitamin B12 and folate supplement . Probable hypoventil ation but will start B12 and folate. Gastroesop hageal reflux disease 709621657 K21.9 Well-contr olled on PPI currently. Depressive disorder 3548 9007 F32.9 Currently on paroxetine . She is doing well on this. Hypertensive disorder 38 497996 I10 Blood pressure at target. Active or passive immunization 935315093 Z23 Flu vaccine is up-to-date Screening for malignant neoplasm of breast 287272984 Z12.39 Order mammogram 64496 MD PRIME LACI Winslow [facility]-Main Office [address] [place] [address] CATARINA DOUGLAS [address] [place] [address] 02/20/2022 14:26:28 02/20/2022 14:55:46 Acute left otitis media 505875126 H66.92 Start abx Hypertensive disorder 38 161894 I10 Increase coreg to 6.25 mg po bid Hyperlipidemia 09818683 E78.5 On crestor. Diet discussed at length with patient. She is not able to exercise because her knee pain and balance problem. 11419 FRANDY WILLIAMSON MD [facility]-Main Office [address] [place] [address] CATARINA DOUGLAS [address] [place] [address] 04/23/2022 12:59:55 04/23/2022 13:26:13 Adult health examination 574685999 Z00.00 *Patient was screened for depression using [...] well an immunizati on schedule. Memory impairment 081566 006 R41.3 Patient has concerns about her memory. I offered her a MOCA test but she is declining this today. She will check with her neurologis t. Depressive disorder 2948 9007 F32.9 On paxil, she is ok with this dose and does not wish to make change sto her regimen. She is more depress since her daughter . PHQ-9 score is 6 Morbid obesity 819142703 E66.01 Patient to come back to discuss weight loss. 65655 FRANDY WILLIAMSON MD OF [facility] Office [address] [place] [address] CATARINA DOUGLAS [address] [place] [address] 07/01/2022 13:44:03 07/01/2022 14:20:54 Acute bronchitis 81920479 J20.9 Acute, stable. Start treatment as below and continue supportive care at home. Patient was advised to RTC if symptoms worsen or do not improve in the next 3 days. Benign meningioma 409358 006 D32.9 Chronic, stable. She will continue with her antiseizur e medicine. Her meningioma was removed without any difficulty and she has not had a seizure. Type 2 olivia betes mellitus 71452332 E11.9 Chronic, stable. Reviewed labs, last Hgb A1c was 5.6. Well-contr olled on current regimen. Seizure disorder 2568111 02 G40.909 Chronic, stable. She will continue with her antiseizur e medicine. Her meningioma was removed without any difficulty and she has not had a seizure. 92137 FRANDY WILLIAMSON MD OF [facility] Office [address] [place], [place] [address]Ant DOUGLAS [address] [place] [address] 07/15/2022 13:59:28 07/15/2022 14:30:58 Immunization due 525857390 Z28.39 Administer ed shingles vaccine. Polyuria 14915270 R35.89 New problem to us. She c/o of increased urination without drinking more fluids. She denies any dysuria, back pain, fever, chills, or any other associated symptoms at this time. Reviewed labs, last Hgb A1c was 5.6 and she does not take any diabetes medication . Ordered lab work. Hyperlipidemia 78412496 E78.5 Chronic, stable. She is currently on Rosuvastat in. Ordered lab work. Hypothyroidism 04723572 E03.9 Chronic, stable. She is currently on Levothyrox ine 25 mcg. Ordered lab work. Essential tremor 4407488 09 G25.0 Chronic, stable. She reports she will be taking part in a clinical research study w/ [employer] soon for her essential tremors. Follows w/ neurologis t. 05428 FRANDY WILLIAMSON MD OF [facility] Office [address] [place] [address] CATARINA DOUGLAS [address] [place] [address] 09/25/2022 13:54:12 09/25/2022 14:30:37 Mass of left breast 1366071154 3463750 N63.20 Patient c/o a lump under her left axilla which she felt 4 weeks ago but can no longer feel herself. She denies any pain, redness, drainage, or other symptoms with this. I am unable to palpate the lesion she is referring to on exam today.Refe rred to [facility] for breast cancer screening. 87724 FRANDY WILLIAMSON MD [facility] [address] [place], [place] [address]ROMAN DOUGLAS [address] [place] [address] 10/11/2022 13:01:33 10/11/2022 13:29:47 Viral screening 905567372 Z11.52 Rapid COVID test negative, discussed results with patient. Acute bronchitis 7030460 2 J20.9 New problem. Start oral antibiotic s and albuterol inhaler and continue Benzonatat e/supporti ve care.Patie nt was advised to RTC if symptoms worsen or do not improve with treatment. 79241 TEJINDER Reed MD OF [facility] Office [address] [place] [address] [address] DOUGLAS [address] [place] [address] 12/18/2022 13:34:59 12/18/2022 14:36:00 Essential tremor 453231625 G25.[address] Steel in [facility]. She should also follow with her neurologis t. Obesity 463098490 E66.9 We discussed about a weight loss [...] a week.Will come back for blood work. 67387 MD PRIME LACI Winslow OF [facility] Office [address] [place], [place] [address]Ant DOUGLAS [address] [place] [address] 12/27/2022 14:40:52 12/27/2022 15:00:50 Active or passive immunization 394328988 Z23 Flu vaccine is up-to-date 49653 MD PRIME LACI Winslow [facility] Office [address] [place] [address] CATARINA DOUGLAS [address] [place] [address] 05/01/2023 13:17:37 05/01/2023 13:52:55 Hospital inpatient stay within past 30 days 8213095242 106 Z76.89 Admitted for dizziness and doing well now this has resolved. Essential tremor 2708592 09 G25.0 Currently on pramipexol e. This is working Benign meningioma 908762 006 D32.9 On lamictal for sz prophylaxi s Hyperlipidemia 74776346 E78.5 On crestor. Diet discussed at length with patient. She is not able to exercise because her knee pain and balance problem. Hypertensive disorder 38 612438 I10 At target Hypothyroidism 58652605 E03.9 Last TSH was normal. Seizure disorder 9801330 02 G40.909 Currently on Lamictal from previous brain surgery 70841 MD PRIME LACI Winslow OF [facility] Office [address] [place], [place] [address]Ant DOUGLAS [address] [place] [address] 06/03/2023 12:58:20 06/03/2023 13:46:56 Adult health examination 367109067 Z00.00 Z13.31 Z71.89 Z13.39 Z13.6 A preventati [...] of baby aspirin. Advance care planning 71 5874467 Z71.89 Advance care planning was addressed during [...] minutes. Patient code status updated. Benign meningioma 585054 006 D32.9 On lamictal for sz prophylaxi s Depressive disorder 3548 9007 F32.9 Currently on paroxetine . She is doing well on this. Hyperlipidemia 69661784 E78.5 On crestor. Diet discussed at length with patient. She is not able to exercise because her knee pain and balance problem. Hypertensive disorder 38 088118 I10 At target Hypothyroidism 86055038 E03.9 Last TSH was normal. Seizure disorder 3719987 02 G40.909 Currently on Lamictal from previous brain surgery Prediabetes 883445004 R7 3.03 Check hgba1c Screening for malignant neoplasm of breast 883678244 Z12.39 Order mammogram for September Screening for malignant neoplasm of colon 594425031 Z12.11 order cologuard Screening for osteoporosis 347490406 Z13.820 Order Dexa Active or passive immunization 833490953 Z23 Flu vaccine is up-to-date 55140 MD PRIME CRISTY Winslow [facility] Office [address] [facility] [address] [place] [address] 07/24/2023 12:48:18 07/24/2023 13:47:36 Congestive heart failure 97967272 I50.9 ImprovedPl anning to see Dr. Wallace in the next week. Hyperlipidemia 67162716 E78.5 On crestor. Diet discussed at length with patient. She is not able to exercise because her knee pain and balance problem. Hypertensive disorder 38 993449 I10 At target Hypothyroidism 22274346 E03.9 Last TSH was normal. History of sepsis 862903 9599 40829 Z86.19 Likely originated for an invasive procedure she had cystoscopy .She is doing well now no SOB. Morbid obesity 331748870 E66.01 diet and exercise d/w pt. Obstructiv e sleep apnea syndrome 44597611 G47.33 She is using the Bipap about 5 hours at night. Vaginitis 09468094 N76.0 77270 MD PRIME LACI Winslow OF [facility] D[facility]GLAS [address] [place] [address] 09/22/2023 15:44:50 09/22/2023 16:50:00 Hypertensive disorder 60539995 I10 At target Hyperlipidemia 84930387 E78.5 On crestor. Diet discussed at length with patient. She is not able to exercise because her knee pain and balance problem. Seizure disorder 8805672 02 G40.909 Currently on Lamictal from previous brain surgery Morbid obesity 117331550 E66.01 Diet and exercise d/w pt. Hypothyroidism 54475293 E03.9 Last TSH was normal. Depressive disorder 3548 9007 F32.9 Currently on paroxetine . She is doing well on this. Prediabetes 363014276 R7 3.03 A1c 5.9 Diet and exercise d/[place]. [address] TEJINDER WILLIAMSON MD OF [facility] Office [address] [place] [address] CATARINA DOUGLAS [address] [place] [address] 10/14/2023 14:51:08 10/14/2023 15:46:24 Pruritic rash 71116319 L28.2 NEW problem Back of neck.- Plan: Prescribe topical steroid cream for the neck rash, to be applied twice daily. Advise the patient to follow up if the rash does not improve within a few days. Seborrheic keratosis 394 099376 L82.1 NEW problem Plan: Order steroid solution for symptom relief. Instruct the patient to apply the solution BID and to follow up if symptoms do not improve. 86073 MD PRIME LACI Winslow OF [facility] Office [address] [place] [address] CATARINA DOUGLAS [address] [place] [address] 10/23/2023 13:50:30 10/23/2023 15:26:02 Essential tremor 657015144 G25.0 Currently on pramipexol e. This is working Hyperlipidemia 21044757 E78.5 On crestor. Diet discussed at length with patient. She is not able to exercise because her knee pain and balance problem. Hypertensive disorder 38 663364 I10 At target Hypothyroidism 28215815 E03.9 Last TSH was normal. Morbid obesity 473135935 E66.01 Diet and exercise d/w pt. Seizure disorder 0208870 02 G40.909 Currently on Lamictal from previous brain surgery Congestive heart failure 85893211 I50.9 ImprovedPl anning to see Dr. Wallace in the next week. Screening for malignant neoplasm of breast 999461826 Z12.39 Order mammogram for September Screening for malignant neoplasm of colon 245997512 Z12.11 Cologuard neg Screening for osteoporosis 265969034 Z13.820 Osteopenia cont with supplement al calcium Seborrheic dermatitis of scalp 971644717 L21.0 Improved Acute cystitis 98633999 N30.01 Culture urine Atrophic vaginitis 55987 000 N95.2 estrace Bacterial vaginosis 4197 87869 N76.0 flagyl Candidiasis of vagina 72 217985 B37.31 nystatin 88596 Noe Camp MD PRIME MD ROBERT [facility] Office [address] [place] [address] [address] 11/19/2023 12:51:09 11/19/2023 13:22:09 Depressive disorder 34992659 F32.9 Currently on paroxetine . She is doing well on this. Essential tremor 9400841 09 G25.0 Currently on pramipexol e. This is working Hyperlipidemia 52611250 E78.5 On crestor. Diet discussed at length with patient. She is not able to exercise because her knee pain and balance problem. Hypertensive disorder 38 257228 I10 At target Hypothyroidism 91300479 E03.9 Last TSH was normal. Morbid obesity 005708147 E66.01 Diet and exercise d/w pt.Cont with tirzepetid e 2.5 sc q weekm Type 2 olivia betes mellitus 95996646 E11.9 Excellent control based on her last hemoglobin A1c. Her hemoglobin A1c was 5.6. Atrophic vaginitis 37741 000 N95.2 Stopped the estradiol and the bleeding has resolved. Overactive urinary bladder 067844061 N32.81 Start oxybutinin 99487 Noe Camp MD PRIME MD ROBERT [facility]Main Office [address] [place] [address] [place] [address] 12/22/2023 12:59:14 12/22/2023 13:24:21 Assisted living facility patient [id number] 0139124 Z76.89 [facility] Hypertensive disorder 38 516222 I10 At target Seizure disorder 0251369 02 G40.909 Currently on Lamictal from previous brain surgery Obstructiv e sleep apnea syndrome 39971020 G47.33 She is using the Bipap about 5 hours at night. Type 2 olivia betes mellitus 53374745 E11.9 Excellent control based on her last hemoglobin A1c. Her hemoglobin A1c was 5.6. Intentiona l weight loss 575376170 R63.8 increase to 5 mg Morbid obesity 930973197 E66.01 Diet and exercise d/w pt.Cont with [...] 09/22/2023 1 [place] Silvana Shahid Payam [id number] Silvana Shahid Payam 09/22/2023 2 [employer] OPTIONS (MEDICARE SUPPLEMENT) Silvana Pringlezier Payam [id number] Silvana F Payam 10/14/2023 1 [place] Silvana Shahid Payam [id number] Silvana Zehra Payam 10/14/2023 2 [employer] OPTIONS (MEDICARE SUPPLEMENT) Silvana Shahid Villanueva Payam [id number] Silvana Zehra Payam 10/23/2023 1 [place] Silvana Shahid Payam [id number] Silvana Zehra Payam 10/23/2023 2 [employer] OPTIONS (MEDICARE SUPPLEMENT) Silvana Shahid Villanueva Payam [id number] Silvana F Payam 11/19/2023 1 [place] Silvana Shahid Payam [id number] Silvana Zehra Hare 11/19/2023 2 [facility] OPTIONS (MEDICARE SUPPLEMENT) Silvana Hare [id number] Silvana Hare 12/22/2023 1 [place] Silvana Hare [id number] Silvana Hare 12/22/2023 2 [facility] OPTIONS (MEDICARE SUPPLEMENT) Silvana Hare [id number] Silvana Hare Notes Date Note Type Note [...] commit to it. Noe Camp MD [address] [facility] [address], [place], [address], [facility] 09/22/2023 16:46:28 10/14/2023 text/html Chief Complaint: [...] both shingles vaccinations. Isauro Rao MD [address] [facility] [address], [place], [address], [facility] 10/20/2023 07:23:19 10/23/2023 text/html he patient, [...] increased bleeding, possibly external. Noe Camp MD [address], [place], [address], [facility] - [facility] 10/23/2023 15:21:25 11/19/2023 text/html The patient repo [...] which has calmed down after following their weapons specialist's advice to limit its use to two [...] continuing the tirzepatide medication. Noe Camp MD [facility] [address], [place], [address], [place] - [facility] 11/19/2023 13:20:48 12/22/2023 text/html To presetns eusebio de jesusi Asst living eval Noe Camp MD [facility] [address], [place], [address], [place] - [facility] 12/22/2023 13:23:12 OBGyn Episode No OBEpisode recorded.
--- OUTSIDE RECORDS SUMMARY | 2024-08-03 02:40 | XMS_ITS | Data Portability ---
Author Organization [place] [facility], Main Office Address [address] [place] [address] [address] [place] [address] Assessment No assessment recorded. Plan of Treatment [...] cter) . Not Available [facility] [address], [place], [address], 06/03/2023 01:50:29 05/30/1906/03/2023 SURES WAB(R ) ADV BACTE RIAL VAGIN OSIS (BV), TMA sureswab(R) adv bacterial vaginosis (bv), tma NEGATI VE negati ve normal Not Available [facility] [address], [place], [address], 06/03/2023 02:09:02 05/30/19 24 06/03/2023 SURES WAB(R ) ADV MADIOSN DA VAGIN ITIS (CV), TMA alfredo species NOT DETECT ED not detect ed normal Not Available [facility] [address], [place], [address], 06/03/2023 02:09:03 05/30/19 24 06/03/2023 SURES WAB(R [...] resul t. Not Available [facility] [address], [place], [address], 06/03/2023 02:09:03 05/30/19 24 06/03/2023 CULTU RE, [...] port Tube. Not Available [facility] [address], [place], [address], 06/03/2023 02:13:30 05/30/19 24 05/30/2023 LIQUI D-BAS ED pdf ACF Not Available [facility] [address], [place], [address], 06/05/2023 18:34:22 06/17/19 24 06/17/2023 PATHO LOGY pdf ACF Not Available [facility] [address], [place], [address], 06/22/2023 18:11:11 06/13/19 24 06/05/2023 US, pelvi [...] Code Diagnosis ICD10 Code Diagnosis Note [id number] Rosaura Song MD Main Office [address] [facility] [address] [place] [address] 05/30/2023 14:31:48 07/09/2023 10:21:30 2261 Rosaura Song MD Main Office [address] [facility] [address] [place] [address] 06/17/2023 09:59:46 06/17/2023 12:49:35 2505 Rosaura Song MD Main Office [address] [facility] [address] [place] [address] 07/15/2023 13:36:49 07/15/2023 14:44:17 Health Concerns Section Related Observation LastModified by Organization Detai ls LastModified Time None Recorded Concern Status LastModified by Organization Details LastModified Time None Recorded Advance Directives Directive None Recorded Payers Encounter Date Sequence Insurance Name Policy Number Policy Schilling Covered Member ID Schilling Member ID Guarantor Name 05/30/2023 2 [employer] OPTIONS (MEDICARE SUPPLEMENT) Silvana Villanueva Payam [id number] Silvana Payam 05/30/2023 1 [place] Silvana F Payam [id number] Silvana Payam 06/17/2023 2 [employer] HE[employer] OPTIONS (MEDICARE SUPPLEMENT) Silvana Villanueva Payam [id number] Silvana Payam 06/17/2023 1 [place] Silvana F Payam [id number] Silvana Payam 07/15/2023 2 [employer] HE[employer] OPTIONS (MEDICARE SUPPLEMENT) Silvana Villanueva Payam [id number] Silvana Payam 07/15/2023 1 [place] Silvana F Payam [id number] Silvana Payam OBGyn Episode No OBEpisode recorded.
--- OUTSIDE RECORDS SUMMARY | 2024-08-03 02:40 | XMS_ITS | Data Portability ---
Author Organization [place] [facility], [facility] - OP Address [address] [place] [address] Care Team Providers Care Senior Android Software Engineer Name Role Phone DEBI MATOS Primary Care [...] For Internal Use Only, Do Not Delete/merge, [id number] 13:50:00 home health referral - [facility] referral for home PTDx: Abnormal GAIT, Right knee arthropl asty, Left foot DJD, pain in limbGAIT training , safety/a ssessmen t, DME teaching , educatio n.Start 2 weeks 3x/week and will reassess at follow-u p visit in 2 weeks.SO C: 10/05 or Emir knowles, LEONORA AACFASAO [facility] ip-Train ed Foot and Ankle SurgeonA O/AAFAO Core FacultyO ffice: [phone] le: [phone]-charleen il: [email or web address] 2014 015 louie [facility], [address], [address], [place], [address], 5 08:43:53 Procedures None recorded . Surgeries None recorded . Imaging XR, foot, 3 or more view 03/20/ 2023 03/20/2 023 [email or web address] In-House Results, For Internal Use Only, Do Not Delete/merge, [id number] 3 12:05:27 x-ray, foot, 3 views 2014 015 [email or web address] In-House Results, For Internal Use Only, Do Not Delete/merge, [id number] 5 18:48:02 Medication Orders None recorded . Patient TargetsNo targets recorded. Patient Instructions Encounter Date Encounter Id Patient Instructions Last Modified By Organization Details Last Modified Time 10/04/2014 [id number] Corticosteroid injection. Discussed operative option of arthrodesis to the great toe joint. F/U with me in 2 weeks for re-evaluation. [facility] referral for balance issues. [email or web address] Not available 10/04/2014 18:45:02 06/10/2022 [id number] heel pain instructions Not available 06/10/2022 17:26:14 [...] and concerns. Not available 06/10/2022 21:01:50 07/08/2022 [id number] -Dressed the lesion with betadine and a band-aid. -Advised to continue to WBAT in supportive shoes, attend PT, complete the HEP, and wear the night splint. -Recommended urea cream for keratoderma prophylaxis. -Addressed all of the patient's questions and concerns. Not available 07/08/2022 15:35:21 Reason for Referral Home Health Referral for Abn ormal gait [facility] referral for home PTDx: Abnormal GAIT, Right knee arthroplasty, Left foot DJD, pain in limbGAIT training, safety/assessment, DME teaching, education.Start 2 weeks 3x/week and will reassess at follow-up visit in 2 weeks.SOC: 10/05 or Emir galindo DPM AACFASAO Fellowship-Trained Foot and Ankle SurgeonGARRETT/HOOD Core FacultyOffice: [phone]: [phone]-mail: Referring Physician: Emir Curry Podiatry, Encounter Date: [...] For Internal Use Only, Do Not Delete/merge, [id number] 06/10/2022 21:02:54 Result Notes None recorded. Problems Name Problem SNOMED Code Status Onset Date Resolution Date Notes Provider Name and Address Organization Details Recorded Time Tremor 41083599 Active 2022 Latesha Workman [facility] 3 17:02:46 Acquired hallux rigidus 6036368 Active Emir Curry, DPM [address], [address] , [facility] 5 18:48:02 Sesamoiditis 31433599 Active Emir Curry DPDeonte [address], [address] , [facility] 5 18:48:02 Abnormal gait 76185276 Active Emir Curry, DPM [address], [address] , [facility] 5 18:48:02 Problem Notes None recorded. Procedures Surgical History Date Name Laterality Status Provider Name and Address Organization Details Recorded Time 07/09/19 23 Keratoma Debridement Size Lesion < 0.5CM completed Narendra Hannon, LEONORA [address] [place] [address], [address], [facility] 07/08/2022 13:55:47 06/11/19 23 Injection Fascia/Tendon/l igament completed Narendra Hannon DPM [address] [place] [address], [address], [facility] 06/10/2022 17:20:10 06/11/19 23 Night Splint completed Narendra Hannon DPDeonte [address] [place] [address], [address], [facility] 06/10/2022 17:21:21 06/11/19 23 Keratoma Debridement Size Lesion < 0.5CM completed Narendra Hannon DPM [address] [place] [address], [address], [facility] 06/10/2022 17:20:51 10/05/19 15 Injection Small Joint/Bursae completed Emir Curry DPM [address] [place] [address], [address], [facility] 10/04/2014 18:45:02 Knee Surgery completed Mykel Swain [facility] 10/04/2014 15:15:04 excision of bunion completed Latesha Workman [facility] 06/10/2022 16:53:36 Imaging Results Imaging Date Name Status LastModified by Organiz ation Details LastModified Time 06/10/2022 XR, foot, 3 or more view completed [email or web address] In-House Results For Internal Use Only, Do Not Delete/merge, [id number] 06/10/2022 21:02:54 Procedure Notes None recorded. Medical [...] [degF] 142 mm[Hg] 76 mm[Hg] Lorie Swain [place] [facility] 10/04/2014 15:15:04 Date Recorded Body temperature Provider Name a nd Address Organization Details Last Updated DateTime 06/10/2022 97.6 [degF] Latesha Workman [facility] 06/10/2022 16:48:04 Date Recorded Body height Body mass index (BMI) Body weight Provider Name and Address Organization Details Last Updated DateTime 07/08/2022 162.56 cm 39.5 kg/m2 670203.25 g Teresa Mack [facility] 07/08/2022 13:40:42 Social History Question Answer Notes LastModified by Organizat ion Details LastModified Time Tobacco Smoking Status Never Smoker Mykel delaney [facility] 10/04/2014 15:15:04 Are You Currently Sexually Active With Anyone [...] Alcohol Use? No Information not available 07/08/2022 Has Tobacco Cessation Counseling Been Provided? No banning general Information not available 07/08/2022 Have You Recently Traveled Abroad? No banning general Information not available 07/08/2022 Sex: Unknown Functional Status Question Answer Note LastModified by Organizat ion Details LastModified Time Do you use any illicit or recreational drugs? No Information not available 07/08/2022 Do you or have you ever used any other forms of tobacco or nicotine? No Information not available 07/08/2022 What is your level of alcohol consumption? Occasional sokubo Information not available 10/04/2014 Mental Status None recorded. Family History Relationship Description Onset Age of this Age Resolved Age Notes LastModified by Organization Details LastModified Time Unspecified Relation Hypertensive disorder [email or web address] Not available 2014 18:00:49 Unspecified Relation Hypocholeste rolemia [email or web address] Not available 2014 18:00:49 Medical History Condition Response Coronary Artery Disease N Gout N Hernia Y Lung Disease N Blood Clots Y Pacemaker N Edema N Headaches/Migraines N Deep Vein Thrombosis N Varicose Veins N Arthritis N Tmo Bite N Cancer N Stroke N Leg or Foot Ulcers N Raynaud's Disease N Polio N Liver Disease N Rheumatoid Arthritis N Foot Deformity N Fibromyalgia N Dialysis N Kidney Disease N Dyslipidemia N Artificial Joints N Thyroid Problems N Anemia N Back Pain Y Diabetes N Difficulty swallowing N Bleeding Disorder N Seizures/Epilepsy N Tuberculosis N AIDS/HIV N Asthma N Substance Abuse N Psoriasis N Peripheral Vascular Disease N Hepatitis N Heart Disease Y Pulmonary Embolism N Hypertension Y Osteoporosis N Gynecological HistoryNo gynecological history recorded. Obstetrics History GPAL:G 0 P 0 0 0 0 Past Encounters Encounter ID Performer Location Encounter Start Date Encounter Closed Date Diagnosis/Indication Diagnosis SNOMED-CT Code Diagnosis ICD10 Code Diagnosis Note [id number] Emir Curry DPM [facility] 1660 [address] [facility],[address] [address] 10/04/2014 14:06:36 10/04/2014 15:34:19 Acquired hallux rigidus 4714348 Sesamoiditis 96981049 Abnormal gait 22682438 [id number] Narendra Hannon DPM [place] [id number] [facility] [place] [address] 06/10/2022 16:18:34 06/10/2022 17:34:47 Plantar fasciitis 113355870 M72.2 {{Improvin g worsenin g* same}} , {{Left* Ri ght Bilate ral}} Equinus co ntracture of the ankle 208397303 M24.573 Hammer toe 096309361 M20 .41 M20.42 Hammertoe deformitie s of {{Right Le ft Bilater al*}} Callosity 283713532 L84 Dry skin 61451079 L85.3 Squamous c ell carcinoma of skin 076442456 C44.92 Patient undergoing excision of lesion June 24 [id number] Narendra Hannon DPM [facility] [place] [address] [place] [address] [address] [facility] [place] [address] 07/08/2022 13:37:08 07/08/2022 14:01:07 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 B/L medial hallux and LT submet 1 Plantar fasciitis 453543 003 M72.2 {{Improvin g* worseni ng same}} , {{Left* Ri ght Bilate ral}} Equinus co ntracture of the ankle 831360835 M24.573 Hammer toe 421043836 M20 .41 M20.42 Hammertoe deformitie s of {{Right Le ft Bilater al*}} Callosity 356651554 L84 Dry skin 57664611 L85.3 Squamous c ell carcinoma of skin 244548384 C44.92 Patient undergoing excision of lesion June 24 Health Concerns Section Related Observation LastModified by Organization Detai ls LastModified Time None Recorded Concern Status LastModified by Organization Details LastModified Time None Recorded Advance Directives Directive None Recorded Payers Insurance Date Sequence Insurance Name Policy Number Policy Schilling Covered Member ID Schilling Member ID Guarantor Name 09/05/2022 1 [place] Silvana Hare [id number] Silvana Hare 09/05/2022 2 [facility] CLAIMS - PLAN KT (MEDICARE SUPPLEMENT) Silvana Hare [id number] Silvana Hare 07/05/2022 [facility] (MEDICARE DME REGION C) Silvana Hare [id number] Silvana Hare Notes Date Note Type Note [...] of Rt big toe. Pain: 1-08/31. Narendra Hannon DPM [address], [address], [facility] 06/10/2022 21:03:19 07/08/2022 [...] improvements. Pain: 07/01. Narendra Hannon DPM [address], [address], [facility] 07/08/2022 15:36:45 OBGyn Episode No OBEpisode recorded.
--- OUTSIDE RECORDS SUMMARY | 2024-08-03 02:40 | XMS_ITS | Patient Health Record ---
Author Organization [facility] Address [address] [facility] [place] [address] Care Team Providers Care Range Operator Name Role Phone PetronaAdriano Unavailable doctor, Dr [...] Stiffness of joint of left foot (finding) (260557335385615) Stiffness of left foot, not elsewhere classified (M25.675) Active confirmed Problem Instability of joint of left foot (finding) (99648632011140387) Other instability, left foot (M25.375) Active confirmed Problem Enthesopathy of foot region (501613399) Other enthesopathy of left foot (M77.52) Active confirmed Problem Metatarsalgia of left foot (385118994157621) Metatarsalgia, left foot (M77.42) Active confirmed Problem Atherosclerosis of [place] arteries of the extremities (219922574528904) Unspecified atherosclerosis of [place] arteries of extremities, bilateral legs (I70.203) Active confirmed Problem 0265078736874050 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, 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) Active confirmed Problem Stiffness of joint of right foot (finding) (878987145569721) Stiffness of right foot, not elsewhere classified (M25.674) Active confirmed Problem Peripheral venous insufficiency (08828044) Venous insufficiency (chronic) (peripheral) (I87.2) Active confirmed Problem Pain in limb (90001564) Pain of left foot (M79.672) Active confirmed Problem Arthralgia of the ankle and/or foot (565603136) Pain in joint, ankle and foot, left [...] Part B [address] [place] [phone] [id number] Silvana Hare Self - patient is the insured 8 [employer] Supplement [address] [facility] [place] [address] [id number] Silvana Hare Self - patient is the [...] Surgical History Surgery Date(Month/Year) various elective sx 4869-8567 brain 2018 sinus surgery 2014 2 bunion sx 2009 Hospitalization History Reason Date(Month/Year) see above
--- OUTSIDE RECORDS SUMMARY | 2024-08-03 02:40 | XMS_ITS | Data Portability ---
Author Organization [place] - [facility] [place], [id number][facility] Address [address] [place] [id number] Care Team Providers Care Real Estate Agency Licensee Name Role Phone MARILYN JAIN OTHER [phone] RADHA DUMONT Primary Care Provider [phone] ANN-MARIE BLANCO Camp Coordinator Assessment Encounter Date Assessment Date Assessment LastModified [...] presents for f/u of multiple GI complaints. [email or web address] Not available 11/19/2021 09:50:24 01/20/2023 01/20/2023 PT [...] mg tablet 2022 023 [email or web address] [id number], [address] [place], [address], 16:56:38 primidone 50 mg tablet 2020 [facility] [address] [employer], [address] [place], [address], 14:55:36 primidone 250 mg tablet 2020 [facility] [address] [employer], [address] [place], [address], 14:55:37 lamotrigin e 25 mg tablet 2020 [facility] [address] [facility] [employer], [address] [place], [address], 14:55:37 venlafaxin e 75 mg tablet 2020 [facility] [address] [employer], [address] [place], [address], 14:55:37 Patient TargetsNo targets recorded. Patient Instructions Encounter Date Encounter Id Patient Instructions Last Modified By Organization Details Last Modified Time 11/19/2021 [id number] diarrhea: care instructions [id number] Not available 11/19/2021 10:02:40 11/29/2022 [id number] diarrhea: care instructions [email or web address] Not available 11/29/2022 15:51:41 Reason for Referral None Reported. Results Created Date Observation Date Name Description Value Unit Range Abnormal Flag Note LastModifiedBy Organization Detail LastModifiedTime 12/26/19 22 12/25/2021 DEXA, axial skele ton Physic ians Region al [place] Rylie t: AZALEA JACKSON [id number] Sex: Female Locati on: [facility] Orderi ng Physic arlene: SOCORRO GOMES PROFESSOR OF ART HISTORY Bone Densit y ACCESS ION EXAM DATE/T [...] Artemio Pena MD On 2021 16:21: 06; -[facility] [id number] Final Signed by: ARTEMIO PENA MD Signed (Elect demetrio queen): 2021 04:21 pm EDT [email or web address] - Radiology Scheduling [address] [facility], [place], [address], 12/31/2021 15:34:33 Result Notes None recorded. Problems Name Problem SNOMED Code Status Onset Date Resolution Date Notes Provider Name and Address Organization Details Recorded Time Hypercholeste rolemia 89613971 Active Not Available [facility] 12:50:53 Migraine 73136939 Active Not Available [facility] 12:50:53 Essential hypertension 52879908 Active Not Available [facility] 12:50:52 Tubular adenoma 236701449 Active Not Available [facility] 12:50:53 Hyperglycemia 10080311 Active Not Available [facility] 12:50:52 Gastroesophag eal reflux disease 999456489 Active Not Available [facility] 12:50:53 Epigastric pain 36918442 Active Not Available [facility] 10/16/202 1 12:50:53 Obesity 563879314 Active Not Available [facility] 12:50:52 Diarrhea 81562698 Active Not Available [facility] 12:50:53 Depressive disorder 49778252 Active Not Available [facility] 12:50:52 Anxiety disorder 320429811 Active Not Available [facility] 12:50:52 Generalized abdominal pain 622494783 Active Not Available [facility] 12:50:52 Osteoporosis 06977945 Active Not Available [facility] 12:50:52 Tremor 66077750 Active 2017 Not Available [facility] 12:50:52 Insomnia 025799783 Active 2017 Not Available [facility] 12:50:53 Vitamin D deficiency 74976150 Active Not Available [facility] 12:50:52 Megaloblastic anemia due to vitamin B>12< deficiency 15165000 Active Not Available [facility] 12:50:52 Senile osteoporosis 24324331 Active Not Available [facility] 12:50:52 Heart murmur 09971918 Active Not Available [facility] 12:50:52 Thready pulse 04091936 Active Not Available [facility] 12:50:52 Edema 411695533 Active Not Available [facility] 12:50:52 Morbid obesity 986101264 Active Not Available [facility] 12:50:52 Pain of joint 87239393 Active Not Available [facility] 12:50:53 Jaime thyroiditis 21584991 Active Not Available [facility] 12:50:53 Hyperlipidemi a 63173247 Active Not Available [facility] 12:50:53 Body mass index 30+ - obesity 998225836 Active Not Available [facility] 12:50:53 Malaise and fatigue 254543773 Active Not Available [facility] 12:50:52 Synovial cyst of popliteal space Active Not Available [facility] 10/16/202 1 12:50:53 Cough 23895953 Active Not Available [facility] 1 12:50:53 Seizure disorder 911038140 Active 2017 Not Available [facility] 1 12:50:53 Disorder of vitamin B12 752035390 Active 2018 Not Available [facility] 1 12:50:52 Memory impairment 815883190 Active 2020 Not Available [facility] 1 12:50:53 Fatigue 46818024 Active 2021 SOCORRO WU APRN [address] [place] [address], [address] , [address] 2 09:49:59 Polyp of colon 03512810 Active 2021 SOCORRO JAZMINFRANDY Devries [address] [place] [address], [address] , [address] 2 09:58:37 Abdominal bloating 245008286 Active 2021 SOCORRO JAZMINFRANDY Devries [address] [place] [address], [address] , [address] 2 10:11:09 Incontinence of feces 42378607 Active 2021 SOCORRO JAZMINFRANDY Devries [address] [place] [address], [address] , [address] 2 10:15:09 Dysphagia 90723844 Active 2021 SOCORRO WU APRN [address] [place] [address], [phone] , [address] 2 10:15:09 Gastroesophag eal reflux disease without esophagitis 315374297 Active 2022 ANN-MRAIE BLANCO MD [address] [place] [address], [address] , [address] 3 14:26:09 Problem Notes None recorded. Procedures Surgical History Date Name Laterality Status Provider Name and Address Organization Details Recorded Time 11/30/19 20 Colonoscopy completed Allison Gillespie RN Clinic Office [address] 12/14/2019 16:22:28 05/01/19 15 Orthopaedic Surgery completed Allison Gillespie RN Clinic Office [address] 04/24/2015 10:57:09 02/25/20 14 Date of Last Pap Smear completed Martha Vaughn RN Clinic Office [address] 04/01/2014 10:44:02 12/23/19 14 Date of Last Mammogram completed Martha Vaughn RN Clinic Office [address] 02/24/2014 11:22:55 08/23/19 12 Colonoscopy completed Anastasiya Yusuf LPN [address] 01/22/2016 09:52:10 Cholecystectomy completed Gloria Jean-Pierre [address] 12/14/2013 14:45:18 Appendectomy completed Gloria Jean-Pierre [address] 12/14/2013 14:45:18 Other completed Gloria Jean-Pierre [address] 12/14/2013 14:45:18 Other completed Gloria Jean-Pierre [address] 12/14/2013 14:50:14 Appendectomy completed Bernardo Danae [address] 01/24/2014 09:07:08 Cholecystectomy completed Bernardo Danae [address] 01/24/2014 09:07:08 Breast Surgery completed Bernardo Danae [address] 01/24/2014 09:07:08 Other completed Bernardo Danae [address] 01/24/2014 09:07:08 Other completed Bernardo Danae [address] 01/24/2014 09:07:08 Tubal Ligation completed Martha Vaughn RN Clinic Office [address] 02/24/2014 11:22:55 Other completed Martha Vaughn RN Clinic Office [address] 02/24/2014 11:22:55 breast augmentation completed Jayden Tapia RN Clinic Office [address] 02/24/2014 11:22:55 Endometrial Ablation completed Martha Vaughn RN Clinic Office [address] 02/24/2014 11:22:55 Imaging Results Imaging Date Name Status LastModified by [facility] Details LastModified Time 12/25/2021 DEXA, axial skeleton completed [email or web address] - Radiology Scheduling [address] [facility], [place], [address], 12/31/2021 15:34:33 Procedure Notes None recorded. Medical Equipment None Reported. Allergies Allergen ID Allergen Name Allergen Category Reaction Reaction Severity Criticality Documentation Date Start Date Code Code System Note Provider Name and Address Organization Details Recorded Time 553995 Ceclor medicatio n Not available Not available Not available 12/14/2013 5 RxNorm Gloria Morejon [address] 4 14:50:14 934780 cefaclor medicatio n myalgias (muscle pain) Not available Not available 01/17/20142175 RxNorm Bernardo Fink [address] 4 09:07:08 869128 Cipro medicatio n Not available Not available Not available 02/24/2014 3 RxNorm Martha Vaughn, RN Clinic Office [address] 4 11:22:55 Medications Name Sig Start [...] completed Not Available Not Available Not Available [facility] 04/24 completed Not Available Not [...] Available Not Available Not Available Fluzone High-Dose 0899-2227 (PF) 180 mcg/0.5 mL intramuscu lar syringe TO BE ADMINIST ERED BY PHARMACI ST FOR IMMUNIZA TION 08/05 completed Not Available Not Available Not Available Fluzone High-Dose 1573-8394 (PF) 180 mcg/0.5 mL intramuscu lar syringe [...] Updated DateTime 1 162.56 cm 37.8 kg/m2 30455.3 2 g 85 /min 95 % 95 % 132 mm[Hg] 90 mm[Hg] Harika Palafox, Administrative Judge [address] 1 14:42:04 Date Recorded Body height Body mass index (BMI) Body weight Heart rate Respiratory rate Oxygen saturation Oxygen saturation in Arterial blood by Pulse oximetry Pain severity - 0-10 verbal numeric rating [Score] - Reported Systolic blood pressure Diastolic blood pressure Provider Name and Address Organization Details Last Updated DateTime 2 162.56 cm 41.2 kg/m2 566561. 17 g 88 /min 16 /min 98 % 98 % 0 122 mm[Hg] 85 mm[Hg] Allison Gillespie RN Clinic Office [address] 2 09:43:50 Date Recorded Body weight Heart rate Respiratory rate Oxygen saturation Oxygen saturation in Arterial blood by Pulse oximetry Body mass index (BMI) Body height Pain severity - 0-10 verbal numeric rating [Score] - Reported Systolic blood pressure Diastolic blood pressure Provider Name and Address Organization Details Last Updated DateTime 3 769604. 21 g 87 /min 16 /min 98 % 98 % 40.3 kg/m2 162.56 cm 1 128 mm[Hg] 83 mm[Hg] Allison Gillespie RN Clinic Office [address] 3 14:30:54 Date Recorded Body height [...] 98 % 98 % 0 41.2 kg/m2 081616. 17 g 128 mm[Hg] 83 mm[Hg] Allison Gillespie RN Clinic Office [address] 3 14:07:00 Date Recorded Body height [...] 98 % 98 % 0 42.9 kg/m2 185881. 09 g 122 mm[Hg] 82 mm[Hg] Allison Gillespie RN Clinic Office [address] 4 14:30:54 Social History Question Answer Notes LastModified by Ylopo Details LastModified Time Tobacco Smoking Status Former Smoker dayant 's Allison Gillespie RN Clinic Office [address] 01/17/2014 15:00:38 What Is Your Level Of Caffeine Consumption? Moderate 2 Coffe Qd Information not available 01/17/2014 How Much Tobacco Do You Chew? None Information not available 01/22/2016 What Type Of Diet Are You Following? REGULAR Information not available 01/22/2016 Which Illicit Or Recreational Drugs Have You Used? None Information not available 01/22/2016 What Was The Date Of Your Most Recent Tobacco Screening? 01/20/2023 [email or web address] Information not available 01/20/2023 Sex: Unknown Functional Status Question Answer Note LastModified by Ylopo Details LastModified Time What is your level of alcohol consumption? Occasional 4-5 wine q week [email or web address] Information not available 01/17/2014 What is your occupation? RETIRED [email or web address] Information not available 01/24/2014 Mental Status None recorded. Family History Relationship [...] 8 completed Allison Gillespie RN Clinic Office null[address] 01/10/2020 15:56:06 Influenza, high-dose, trivalent, PF 7 completed Allison Gillespie RN Clinic Office null[address] 12/01/2019 15:38:31 Influenza, split virus, trivalent, preservative 8 rox Gillespie RN Clinic Office [address] 12/01/2019 15:38:31 Influenza, split virus, trivalent, preservative 4 rox Gillespie RN Clinic Office null[address] 12/01/2019 15:38:31 Influenza, split virus, trivalent, preservative 2 rox Gillespie RN Clinic Office null[address] 12/01/2019 15:38:31 Pneumococcal conjugate PCV 13 7 rox Gillespie RN Clinic Office null[address] 12/01/2019 15:38:31 Influenza, split virus, trivalent, preservative 0 rox Gillespie RN Clinic Office null[address] 12/01/2019 15:38:31 Influenza, split virus, trivalent, preservative 1 rox Cooper Jose Miguel, RN Clinic Office null, [address] 12/01/2019 15:38:31 Influenza, split virus, trivalent, preservative 9 completed Allison Gillespie RN Clinic Office null, [address] 12/01/2019 15:38:31 Influenza, high-dose, trivalent, PF 8 completed Harika Palafox Administrative Judge Cert null, [address] 12/22/2020 14:42:16 pneumococcal polysaccharide PPV23 0 completed Harika Palafox Administrative Judge Cert null, [address] 12/22/2020 14:42:16 zoster live 3 completed Harika Palafox Administrative Judge Cert null, [address] 12/22/2020 14:42:16 Influenza, high-dose, trivalent, PF 4 completed Johnna Roque, RN null, [address] 03/31/2017 15:28:41 pneumococcal polysaccharide PPV23 0 completed Ly Roque, RN null, [address] 12/22/2017 09:52:35 Influenza, split virus, quadrivalent, preservative 6 completed Ly Roque, RN null, [address] 03/31/2017 15:28:41 pneumococcal polysaccharide PPV23 1 completed Ly Jude, RN null, [address] 03/31/2017 15:28:41 zoster live 3 completed Ly Roque, RN null, [address] 12/22/2017 09:52:36 Influenza, high-dose, trivalent, PF 5 completed Ly Roque, RN null, [address] 12/22/2017 09:52:35 Influenza, high-dose, trivalent, PF 4 completed Harika Palafox Administrative Judge Cert null, [address] 12/22/2020 14:42:16 Influenza, split virus, quadrivalent, preservative 7 completed Ly Jude, RN null, [address] 12/22/2017 09:52:35 Past Encounters Encounter ID Performer Location Encounter Start Date Encounter Closed Date Diagnosis/Indication Diagnosis SNOMED-CT Code Diagnosis ICD10 Code Diagnosis Note [id number] HARDIK JESSICA MD COL_DESK [address] [facility] DESK [address] [place] [address] 12/28/2013 11:02:14 12/28/2013 14:06:46 Dyspnea on exertion 97037055 because of her symptoms and her previous EKG having nonspecifi c ST-T changes (abnormal ekg), a stress test will be ordered. She has significan t osteoarthr itis of the knees and back pain and cannot do the treadmill. Because of this an adenosine stress test will be ordered. I suspect that she is also deconditio isela as well. Chronic back pain 175537835 she will followup with pain management . I explained that control of her back pain will be an essential part of her weight reduction program. We need to have her working with a crew trainer in order to help her lose weight. A referral to a crew trainer was given. Essential hypertension 17737566 her blood pressures have been stable. She will work on weight reduction program. Blood pressure goals were given. Hypercholesterolemia 92803229 her lipid profile goals were discussed. Her lipid profile will be rechecked. She will work on the above weight reduction program. Hyperglycemia 30872004 h er A1c will be rechecked. Ophthalmol ogy followup and proper foot care will be emphasized . Fatigue 01512039 the abo ve stress test will be ordered. A reconditio chuck program will be needed. Her labs will also include a CBC, CMP, TSH and B12 level. Vitamin D deficiency 26678989 her level will be checked to make sure that she is above 40 Megaloblas tic anemia due to vitamin B>12< deficiency 82880681 her level will be checked to make sure that she is above 895 [id number] ANN-MARIE BLANCO MD COL_DESK 42 GI [address] [place] [address] 01/17/2014 13:59:07 01/17/2014 15:38:32 Gastroesophageal reflux disease 545632636 Restarting Omeprazole 40 mg p.o. q. a.m. Also instructed patient on GERD lifestyle modificati ons. Pending response may require EGD to rule out GERD complicati ons. Patient understand s and agrees. Epigastric pain 92850395 Likely secondary to GERD however cannot rule out possible component of functional dyspepsia. Await response to restart of Omeprazole . Also instructed patient on GERD lifestyle modificati ons. As above, pending response may require EGD to rule out GERD complicati ons. Patient understand s and agrees. Obesity 447920157 S/p ~1 5 lb wt gain in [...] sx. Patient understand s and agrees. Diarrhea 76972925 Etiolo gy uncertain. Should rule out infectious [...] lab results. History of polyp of colon 284440527 Pt s/p colonoscop y sig for TA in 2011. Risks of missed polyps explained to pt. For repeat colonoscop y in 2016. Pt underastan ds and agrees. [id number] MD lawrence MONTEIROzARIANABANNER [address] [facility] [address] [place] [address] 02/24/2014 10:59:58 02/24/2014 11:44:28 Screening for malignant neoplasm of cervix 118309835 Anxiety disorder 281703063 Depressive disorder 72901402 [id number] DIEGO LAY MD zzCOL_AL [address] [facility] [address] [place] [address] 04/01/2014 10:37:51 04/01/2014 11:20:38 Depressive disorder 73748609 Anxiety disorder 656020385 [id number] BRAN GRAHAM MD COL_DESK 12 NEURO [address] [place] [address] 04/11/2014 10:59:53 04/11/2014 11:44:59 Migraine 59792061 Essential hypertension 82667603 Fatigue 59052615 Depressive disorder 47353406 Anxiety disorder 520750916 [id number] DIEGO LAY MD zzCOLB_[facility] [address] [facility] [address] [place] [address] 04/22/2014 10:20:42 04/22/2014 10:41:58 Depressive disorder 82483532 Anxiety disorder 840308181 Hypercholesterolemia 85006033 [id number] ANN-MARIE BLANCO MD COL_DESK 42 GI [address] [place] [address] 11/14/2014 10:29:49 11/14/2014 11:48:46 Diarrhea 30267719 Advised patient that likely multifacto rial in [...] IBS-D. Patient understand s and agrees. Obesity 353065260 Patien t advised again on decreasing food portion sizes as well as increasing exercise by walking or working out in a pool if necessary. Again advised of possible benefit from participat ing in Weight Wat[employer] or similar support group. Will continue to monitor weight loss at follow up visits. Patient understand s and agrees. Gastroesop hageal reflux disease 191592437 Well-contr olled with current PPI regimen. To continue the same in addition to continuing lifestyle changes. Patient to inform office if symptoms recur. Patient understand s and agrees. History of polyp of colon 287210692 Pt s/p colonoscop y sig for TA in 2011. Risks of missed polyps explained to pt. For repeat colonoscop y in 2016. Pt underastan ds and agrees. Generalize d abdominal pain 187902887 Etiology uncertain. S/p EGD & colonoscop y in 2011. Also advised pt to keep a food journal if symptoms recur. If symptoms recur to call office for possible evaluation w/ repeat EGD and colonoscop y. Pt understand s and agrees. [id number] ANN-MARIE BLANCO MD COL_DESK 42 GI [address] [place] [address] 04/24/2015 10:33:30 04/24/2015 11:48:16 Obesity 652446235 E66.9 Advised patient on decreasing food portion sizes. Advised patient that a food portion is ~ the size of the palm of her hand and ~2 inches high. Also encouraged patient to increase exercise by walking or working out in a pool if necessary. Will continue to monitor weight at follow up visits. Patient understand s and agrees. Epigastric pain 13793802 R10.13 Likely secondary to GERD however cannot rule out possible component of functional dyspepsia. Starting trial of PPI p.o. q. a.m. Also instructed patient on GERD lifestyle modificati ons. Pending response may require EGD to rule out GERD complicati ons. Patient understand s and agrees. Gastroesop hageal reflux disease 464043796 K21.9 S/p increasing dose of current PPI to BID without adequate response. Will change to different PPI. If no improvemen t may require EGD. Generalize d abdominal pain 987470946 R10.84 Resolved. To treat obesity as above. Also advised pt to keep a food journal if symptoms recur. If symptoms recur to call office for possible evaluation w/ imaging studies. Pt understand s and agrees. Diarrhea 88817948 R19.7 Much improved. Likely multifacto rial in [...] and agrees. History of polyp of colon 577922104 Z86.010 Pt s/p colonoscop y sig for TA in 2011. Risks of missed polyps explained to pt. For repeat colonoscop y in 2017. Pt underastan ds and agrees. Osteoporosis 60311607 M8 1.0 Due to risk of osteoporos is and patient's need for long-term PPI therapy, suggest bone density study to rule out osteopenia /osteoporo sis. Patient advised to continue Calcium + Vitamin D BID. Last BDS in 2013. Will schedule for bone density study with further recommenda tions pending results. [id number] BRAN GRAHAM MD COL_DESK [address] [place] [address] 07/07/2015 10:40:08 07/07/2015 11:24:01 Migraine 72690390 G43.909 Depressive disorder 3548 9007 F32.9 Anxiety disorder 6359269 06 F41.9 Essential hypertension 67475322 I10 Intracrani al meningioma 211400758 D32.0 Tremor 97300872 R25.1 [id number] BRAN GRAHAM MD COL_DESK [address] [place] [address] 11/30/2015 10:04:34 11/30/2015 10:38:32 Osteoporosis 85649595 M81.0 Generalize d abdominal pain 573724727 R10.84 Depressive disorder 3548 9007 F32.9 Anxiety disorder 5648203 06 F41.9 Migraine 71771802 G43.90 9 Intracrani al meningioma 634843505 D32.0 [id number] ANN-MARIE BLANCO MD COL_DESK 42 GI [address] 0 01/22/2016 09:27:38 01/22/2016 11:11:48 Gastroesophageal reflux disease 911384388 K21.9 Well controlled with Nexium 40 mg qd 30 min before meals. To cont the same. To continue the same in addition to continuing lifestyle changes. Patient to inform office if symptoms recur. Patient understand s and agrees. Obesity 648317278 E66.9 BMI: 37.6 Prior visit pt at BMI 39.2 in 228.2 lbs. Pt has lost ~10 lbs since last visit. To cont on decreasing food portion sizes and exercising in pool and golfing. Spoke to pt about weight loss sx with Dr. Echevarria. Will continue to monitor weight at follow up visits. Patient understand s and agrees. Epigastric pain 49734573 R10.13 Resolved. To cont as above. Patient understand s and agrees. Diarrhea 11962821 R19.7 No improvemen t - see HPI. [...] response. Pt understand s and agrees. Osteoporosis 34104843 M8 1.0 Last visit, we ordered a BDS - do not see results. To cont calcium and vit-D supplement . Will check records further / reorder study. Pt understand s and agrees. Nausea 984869352 R11.0 Occasional symptoms. ? Secondary to PUD [...] and agrees. History of polyp of colon 466468826 Z86.010 Pt s/p colonoscop y sig for TA in 2011. Risks of missed polyps explained to pt. For repeat colonoscop y in 2017. Pt understand s and agrees. [id number] ANN-MARIE BLANCO MD COL_DESK 42 GI [address] [place] [address] 07/15/2016 09:54:00 07/15/2016 11:23:56 Gastroesophageal reflux disease 525330990 K21.9 Well controlled with Nexium 40 mg qd 30 min before meals however due to possible diarrhea as s/e will d/c and start a trial of Dexilant 60 mg qAM.Furthe r recommenda tions pending response to therapy as well as colonoscop y and lab results +/- EGD is TTG positive Abdominal pain 69570226 R10.9 Likely multifacto rial in origin with a component secondary to patient's diarrhea.? Lactose intoleranc e.Await response to new dietary regimen including avoidance of coffee and lactose.Al so await colonoscop y results. Further recommenda tions to follow.May require initiation of antispasmo dic. Abdominal bloating 79144 3312 R14.0 Symptoms still persist despite attempts to [...] . Pt understand s and agrees. Diarrhea 62344017 R19.7 No improvemen t - see HPI. [...] & results.Pt understand s and agrees. Obesity 287068725 E66.9 Patient admits to a very sedentary [...] agrees. Screening for malignant neoplasm of colon 768813612 Z12.11 S/p colonoscop y in 2011 significan t for TA..Will schedule for a screening/ surveillan ce colonoscop y with future recommenda tions pending results. Risks of missed polyps, bleeding, pain & perforatio n explained to the pt. Pt understand s and agrees. History of polyp of colon 103435715 Z86.010 Pt s/p colonoscop y sig for TA in 2011. Risks of missed polyps explained to pt.For repeat colonoscop y now.Pt understand s and agrees. [id number] ANN-MARIE BLANCO MD [facility] [address] GI [address] [place] [address] 11/15/2016 11:43:37 11/15/2016 14:03:40 Diarrhea 02026430 R19.7 Improved following dietary changes.Diane booth multifacto [...] understand s and agrees. Polyp of colon 38794269 K63.5 Pt s/p colonoscop y 07/2016 sig for TA. Risks of missed polyps explained to pt. For repeat colonoscop y in ~07/2021. Pt understand s and agrees. Gastroesop hageal reflux disease 768185407 K21.9 Assoc w/ wine & [place] food ingestion despite Omeprazole 40 mg qD.To cont PPI- BID.To call if breakthrou gh symptoms continue/w orsen. Nausea 087281013 R11.0 Resolved. ? Secondary to PUD vs GERD vs dietary indiscreti ons vs gastropare sis. To continue PPI therapy. To call office if symptoms recur. In addition if symptoms recur will consider requesting thyroid studies and celiac panel to rule out concomitan t illnesses. Abdominal pain 56445347 R10.9 Resolved. Etiology uncertain. Also advised pt to keep a food journal if symptoms recur. If symptoms recur to call office for possible evaluation w/ imaging studies. Pt understand s and agrees. Obesity 063962012 E66.9 Patient admits to a very sedentary lifestyle as well as depression which decreases her activity.P t requesting informatio n about the gastric sleeve option.Dis cussed at length with pt.Referri ng to Dr. Echevarria. [id number] BRAN GRAHAM MD [facility] [address] NEURO [address] [place] [address] 03/31/2017 14:55:45 03/31/2017 16:19:02 Osteoporosis 55947793 M81.0 Generalize d abdominal pain 564272124 R10.84 Depressive disorder 3548 9007 F32.9 Anxiety disorder 9771034 06 F41.9 Migraine 50090570 G43.90 9 Intracrani al meningioma 914117178 D32.0 Tremor 85514211 R25.1 Obesity 855527525 E66.9 Insomnia 594749960 G47.0 0 [id number] BRAN GRAHAM MD [facility] [address] [place] [address] 12/22/2017 09:36:44 12/22/2017 10:11:18 Osteoporosis 18985575 M81.0 Generalize d abdominal pain 214399555 R10.84 Depressive disorder 3548 9007 F32.9 Anxiety disorder 8324569 06 F41.9 Migraine 43902982 G43.90 9 Intracrani al meningioma 813770102 D32.0 Tremor 07056364 R25.1 Obesity 904706605 E66.9 Insomnia 600323245 G47.0 0 [id number] BRAN GRAHAM MD [facility] [address] [place] [address] 01/23/2018 08:44:25 01/23/2018 09:33:38 Osteoporosis 93478893 M81.0 Generalize d abdominal pain 005411938 R10.84 Depressive disorder 3548 9007 F32.9 Anxiety disorder 9775323 06 F41.9 Migraine 08939967 G43.90 9 Intracrani al meningioma 234480962 D32.0 Tremor 88586194 R25.1 Obesity 376832315 E66.9 Insomnia 086642064 G47.0 0 Seizure disorder 6236929 02 G40.165 [id number] CHAZ HURT NP [facility] [address] [place] [address] 03/10/2018 14:22:03 03/10/2018 15:16:03 Abdominal pain 09413800 R10.9 Will check CBC and CT and [...] of the abdomen, bleeding per rectum. Diarrhea 50373465 R19.7 [id number] BRAN GRAHAM MD [facility] [address] [place] [address] 03/11/2018 12:54:27 03/11/2018 13:54:24 Osteoporosis 99770828 M81.0 Anxiety disorder 1642253 06 F41.9 Seizure disorder 5712335 02 G40.909 Generalize d abdominal pain 534584262 R10.84 Depressive disorder 3548 9007 F32.9 Tremor 60793813 R25.1 Migraine 32078836 G43.90 9 Intracrani al meningioma 478906959 D32.0 Obesity 287660800 E66.9 Insomnia 754093083 G47.0 0 [id number] BRAN GRAHAM MD [facility] [address] [place] [address] 04/01/2018 09:55:40 04/01/2018 10:25:46 Osteoporosis 71307383 M81.0 Anxiety disorder 0719252 06 F41.9 Seizure disorder 7380472 02 G40.909 Generalize d abdominal pain 686528112 R10.84 Depressive disorder 3548 9007 F32.9 Tremor 37532774 R25.1 Migraine 63200839 G43.90 9 Intracrani al meningioma 722251116 D32.0 Obesity 191052850 E66.9 Insomnia 632112837 G47.0 0 [id number] ANN-MARIE BLANCO MD [facility] [address] [place] [address] 06/22/2018 15:32:39 06/24/2018 10:42:07 Diarrhea 23423270 R19.7 Watery, explosive, w/ urgency, x~2-3 weeks, [...] well as lab results. Polyp of colon 04402957 K63.5 Pt s/p colonoscop y 07/2016 sig for TA. Risks of missed polyps explained to pt. For repeat colonoscop y in ~07/2021 or sooner PRN. Pt understand s and agrees. Gastroesop hageal reflux disease 033599042 K21.9 Well-contr olled with Nexium 40 mg qAM. To continue the same in addition to continuing lifestyle changes. Patient to inform office if symptoms recur. Patient understand s and agrees. Obesity 270510411 E66.9 BMI = 41, up from 38.6.Pt reports +++ stress over the past year.Patie nt advised again on decreasing food portion sizes as well as increasing exercise by walking or working out in a pool if necessary due to arthritis. Will continue to monitor weight loss at follow up visits. Patient understand s and agrees. Abdominal bloating 78734 9008 R14.0 Symptoms still persist despite attempts [...] . Pt understand s and agrees. Osteoporosis 05004161 M8 1.0 Last BDS was in 2016. [...] study with further recommenda tions pending results. [id number] BRAN GRAHAM MD [facility] [address] [place] [address] 07/23/2018 14:54:08 07/23/2018 15:25:51 Intracranial meningioma 160286682 D32.0 Seizure disorder 2238004 02 G40.909 Anxiety disorder 0989193 06 F41.9 Depressive disorder 3548 9007 F32.9 Tremor 28873244 R25.1 Migraine 35699514 G43.90 9 Obesity 408027207 E66.9 Disorder o f vitamin B12 324601460 E53.8 [id number] BRAN GRAHAM MD [facility] [address] [place] [address] 05/13/2019 09:44:20 05/13/2019 10:24:58 Intracranial meningioma 329389802 D32.0 Depressive disorder 3548 9007 F32.9 Seizure disorder 7242341 02 G40.909 Disorder o f vitamin B12 096216826 E53.8 Anxiety disorder 6953773 06 F41.9 Tremor 40427524 R25.1 Migraine 59901804 G43.90 9 Obesity 607475504 E66.9 [id number] BRAN GRAHAM MD [facility] [address] [place] [address] 09/01/2019 11:23:50 09/01/2019 12:35:29 Intracranial meningioma 599878621 D32.0 Depressive disorder 3548 9007 F32.9 Disorder o f vitamin B12 446206375 E53.8 Seizure disorder 4643603 02 G40.909 Anxiety disorder 8598755 06 F41.9 Tremor 53764215 R25.1 Migraine 76197716 G43.90 9 Obesity 517032831 E66.9 [id number] BRAN GRAHAM MD [facility] [address] [place] [address] 11/11/2019 12:57:58 11/11/2019 14:50:24 Tremor 34107407 R25.1 Intracrani al meningioma 876001353 D32.0 Depressive disorder 3548 9007 F32.9 Seizure disorder 2348725 02 G40.909 Anxiety disorder 0369052 06 F41.9 Migraine 16236848 G43.90 9 Obesity 566705340 E66.9 [id number] ANN-MARIE BLANCO MD [facility] [address] [place] [address] 11/22/2019 10:54:04 11/22/2019 12:19:21 Diarrhea 78848254 R19.7 ~1-3 loose stools daily, +/- fecal [...] literature given previously . Polyp of colon 42988727 K63.5 Pt s/p colonoscop y 07/2016 sig for TA. Risks of missed polyps explained to pt. For repeat colonoscop y in ~07/2021 or sooner PRN. Pt understand s and agrees. Gastroesop hageal reflux disease 745898323 K21.9 Well-contr olled with Omeprazole 40 mg qAM. To continue the same in addition to continuing lifestyle changes. Patient to inform office if symptoms recur. Patient understand s and agrees. Obesity 918025936 E66.9 BMI = 42.9, up from 41, up from 38.6. ~250 lbsPt reports +++ stress over the past year.Patie nt advised again on decreasing food portion sizes as well as increasing exercise by walking or working out in a pool if necessary due to arthritis. Will continue to monitor weight loss at follow up visits. Patient understand s and agrees. Abdominal bloating 27544 9001 R14.0 Symptoms still persist despite attempts [...] . Pt understand s and agrees. Osteoporosis 15138556 M8 1.0 Last BDS was in 2016. [...] tions pending results. Incontinence of feces 72 836876 R15.9 Etiology likely multifacto rial in origin [...] possible biofeedbac k training. Pre-surgery testing 1104 98550 Z01.89 For COVID testing prior to any outpt GI procedure. Dysphagia 37075944 R13.1 0 Likely secondary to patient's GERD. To continue Omeprazole 40 mg po qAM. Also scheduling for EGD to rule out GERD complicati ons as well as EoE. If patient does not respond to the PPI trial, may also require esophagram to rule out motility disorder. [id number] ANN-MARIE BLANCO MD [facility] [address] [place] [address] 01/10/2020 15:52:14 01/10/2020 16:48:46 Diarrhea 12857794 R19.7 Currently having ~1-2 semi formed BM [...] literature given previously . Polyp of colon 77388825 K63.5 S/p repeat colon 12/01/2019- Neg for colitis, + for a polyp in the rectosigmo id colon.Risk s of missed polyps explained to pt. For repeat colonoscop y in ~5 years or sooner PRN. Pt understand s and agrees. Pt s/p colonoscop y 07/2016 sig for TA. Gastroesop hageal reflux disease 847155955 K21.9 S/p EGD 12/01/2019- Sig for gastritis. Well-contr olled with Omeprazole 40 mg qAM. To continue the same in addition to continuing lifestyle changes. Patient to inform office if symptoms recur. Patient understand s and agrees. Obesity 103313880 E66.9 2' to leg brace, pt not [...] Patient understand s and agrees. Abdominal bloating 30345 3221 R14.0 Much improved. Likely multifacto rial in [...] previously ) understand s and agrees. Osteoporosis 69562004 M8 1.0 Last BDS was in 2016. [...] tions pending results. Incontinence of feces 72 809427 R15.9 Secondary to watery / loose stools as since her symptoms resolved following an increase in fiber in her diet and increasing the bulk of her stool. Advised patient to continue her high fiber diets. Also advised patient to perform anal sphincter strengthen ing exercises several times daily and as needed. Fiber literature given previously . To call office if episodes recur. Dysphagia 95227886 R13.1 0 Resolved. Likely secondary to patient's GERD. To continue Omeprazole 40 mg po qAM. Also scheduling for EGD to rule out GERD complicati ons as well as EoE. If patient does not respond to the PPI trial, may also require esophagram to rule out motility disorder. Fatigue 25381469 R53.83 ? 2' to changed to Dr. Ori Cancino. Requesting copies of lab work. To f/u w/ Dr. Cancino as well. [id number] BRAN GRAHAM MD [facility] [address] [place] [address] 05/12/2020 13:45:36 05/12/2020 14:33:39 Tremor 46427936 R25.1 Intracrani al meningioma 798165456 D32.0 Depressive disorder 3548 9007 F32.9 Seizure disorder 9774992 02 G40.909 Anxiety disorder 3491377 06 F41.9 Migraine 71386232 G43.90 9 Obesity 607351689 E66.9 Memory impairment 800689 006 R41.3 [id number] BRAN GRAHAM MD [facility] [address] [place] [address] 12/22/2020 14:34:50 12/22/2020 15:09:13 Memory impairment 227520731 R41.3 Tremor 12172674 R25.1 Seizure disorder 6124663 02 G40.909 Intracrani al meningioma 994287549 D32.0 Depressive disorder 3548 9007 F32.9 Anxiety disorder 1162926 06 F41.9 Migraine 32538898 G43.90 9 Obesity 974086449 E66.9 [id number] SOCORRO WU APRN [facility] [address] [place] [address] 11/19/2021 09:28:15 11/19/2021 10:06:14 Diarrhea 69360851 R19.7 Improved. Currently having 2-3 formed BM daily w/ Metamucil. 1-2 loose stool episodes a month now. Any loose episodes are assoc w/ dietary indiscreti ons.Advise d patient on increasing dietary fiber as well as avoiding lactose.Fi harika literature given previously . S/p EGD & colonoscop y 11/2019- S/p Neg random bx'sOther w/u including TFT, negative to date. Polyp of colon 12619704 K63.5 S/p repeat colon 12/01/2019- Neg for colitis, + for a polyp in the rectosigmo id colon. Risks of missed polyps explained to pt. For repeat colonoscop y in ~5 years or sooner PRN. Pt understand s and agrees. Pt s/p colonoscop y 07/2016 sig for TA. Gastroesop hageal reflux disease 998296439 K21.9 S/p EGD 12/01/2019- Sig for gastritis. Well-contr olled with Pantoprazo le 40mg qAM. Previously on Omeprazole 40 qAM. To continue the same in addition to continuing lifestyle changes. Patient to inform office if symptoms recur. Patient understand s and agrees. Obesity 311302458 E66.9 BMI = 41.2 no change in weight since last visitPatie nt advised again on decreasing food portion sizes as well as increasing exercise by walking or working out in a pool if necessary due to arthritis. Will continue to monitor weight loss at follow up visits.Emilie caraballo understand s and agrees. Abdominal bloating 61435 9008 R14.0 Much improved. 1-2 episodes a [...] previously ) understand s and agrees. Osteoporosis 98780825 M8 5.88 Last BDS was in 2015. Due to risk of osteoporos is and patient's need for long-term PPI therapy, suggest bone density study to rule out osteopenia /osteoporo sis. Will schedule for bone density study with further recommenda tions pending results. Patient advised to continue Calcium + Vitamin D BID. Incontinence of feces 72 890138 R15.9 Secondary to watery / loose stools [...] To call office if episodes recur. Dysphagia 48226050 R13.1 0 Resolved. Likely secondary to patient's GERD. To continue Pantoprazo le 40 mg po qAM. If symptoms return or worsen may also require esophagram to rule out motility disorder. [id number] ANN-MARIE BLANCO MD [facility] [address] [place] [address] 11/29/2022 13:55:48 11/29/2022 14:42:52 Diarrhea 18059349 R19.7 Improved. Currently having 2-3 formed BM daily w/ Metamucil. 1-2 loose stool episodes a month now. Any loose episodes are assoc w/ dietary indiscreti ons.Advise d patient on increasing dietary fiber as well as avoiding lactose.Fi harika literature given previously . S/p EGD & colonoscop y 11/2019- S/p Neg random bx'sOther w/u including TFT, negative to date. Polyp of colon 41392333 K63.5 S/p repeat colon 12/01/2019- Neg for colitis, + for a polyp in the rectosigmo id colon. Risks of missed polyps explained to pt. For repeat colonoscop y in ~5 years or sooner PRN. Pt understand s and agrees. Pt s/p colonoscop y 07/2016 sig for TA. Gastroesop hageal reflux disease 702917341 K21.9 S/p EGD 12/01/2019- Sig for gastritis. Well-contr olled with Pantoprazo le 40mg qAM. Previously on Omeprazole 40 qAM. To continue the same in addition to continuing lifestyle changes. Patient to inform office if symptoms recur. Patient understand s and agrees. Obesity 004640237 E66.9 Patient advised again on decreasing food portion sizes as well as increasing exercise by walking or working out in a pool if necessary due to arthritis. Will continue to monitor weight loss at follow up visits.Emilie eugenetim understand s and agrees. Abdominal bloating 50070 9008 R14.0 Much improved. 1-2 episodes a [...] previously ) understand s and agrees. Osteoporosis 11668629 M8 5.88 BDS 2021 sig for osteopenic changesDue to risk of osteoporos is and patient's need for long-term PPI therapy, suggest bone density study to rule out osteopenia /osteoporo sis. Will schedule for bone density study with further recommenda tions pending results. Patient advised to continue Calcium + Vitamin D BID. Incontinence of feces 72 526852 R15.9 Secondary to watery / loose stools [...] To call office if episodes recur. Dysphagia 10330661 R13.1 0 Resolved. Likely secondary to patient's GERD. To continue Pantoprazo le 40 mg po qAM. If symptoms return or worsen may also require esophagram to rule out motility disorder. [id number] ANN-MARIE BLANCO MD [facility] [address] [place] [address]. [address] [place] [address] 01/20/2023 13:51:03 01/20/2023 14:47:42 Gastroesophageal reflux disease without esophagitis 045023616 K21.9 + Breakthrou gh symptoms despite Protonix qAM. Improved w/ Pepcid PRN.To take the Pepcid qHS, not PRN.To continue the same in addition to continuing lifestyle changes.Santy frost to inform office if symptoms recur.Alina ent understand s and agrees. Previously on Omeprazole 40 qAM. Diarrhea 08415969 R19.7 Well controlled w/ Metamucil + protein shake qAM. Having 1-2 soft stools daily.Any loose episodes are assoc w/ dietary indiscreti ons.Advise d patient on increasing dietary fiber as well as avoiding lactose.Fi harika literature given previously . S/p EGD & colonoscop y 11/2019- S/p Neg random bx'sOther w/u including TFT, negative to date. Polyp of colon 78434491 K63.5 S/p repeat colon 12/01/2019- Neg for colitis, + for a polyp in the rectosigmo id colon. Risks of missed polyps explained to pt. For repeat colonoscop y in ~5 years or sooner PRN. Pt understand s and agrees. Pt s/p colonoscop y 07/2016 sig for TA. Obesity 171924694 E66.9 BMI= 41.2, ~240 lbs. S/p ~5 lb wt gain since her last visit.Alina ent advised again on decreasing food portion sizes as well as increasing exercise by walking or working out in a pool if necessary due to arthritis. Will continue to monitor weight loss at follow up visits.Emilie caraballo understand s and agrees. Osteoporosis 16389782 M8 5.88 BDS 2021 sig for osteopenic changesDue to risk of osteoporos is and patient's need for long-term PPI therapy, suggest bone density study to rule out osteopenia /osteoporo sis. Will schedule for bone density study with further recommenda tions pending results. Patient advised to continue Calcium + Vitamin D BID. Incontinence of feces 72 372716 R15.9 Resolved. Advised patient to continue her high fiber diets. Also advised patient to perform anal sphincter strengthen ing exercises several times daily and as needed. Fiber literature given previously . To call office if episodes recur. [id number] ANN-MARIE BLANCO MD [facility] [address] [place] [address] [address] [place] [address] 06/09/2023 13:22:19 06/09/2023 15:08:44 Gastroesophageal reflux disease without esophagitis 503939542 K21.9 Well controlled w/ Protonix 40 mg qAM & Pepcid 40 mg qHS PRN (usually 1-2/wk)To cont the same in addition to continuing lifestyle changes.[place]y frost to inform office if symptoms recur.Alina ent understand s and agrees. Previously on Omeprazole 40 qAM & Protonix qAM only. Diarrhea 89086378 R19.7 Well controlled w/ Metamucil + protein shake qAM. Having 1-2 soft stools daily.Any loose episodes are assoc w/ dietary indiscreti ons.Advise d patient on increasing dietary fiber as well as avoiding lactose.Fi harika literature given previously . S/p EGD & colonoscop y 11/2019- S/p Neg random bx'sOther w/u including TFT, negative to date. Polyp of colon 66765484 K63.5 S/p repeat colon 12/01/2019- Neg for colitis, + for a polyp in the rectosigmo id colon. Risks of missed polyps explained to pt. For repeat colonoscop y in ~5 years or sooner PRN. Pt understand s and agrees. Pt s/p colonoscop y 07/2016 sig for TA. Obesity 540119335 E66.9 BMI= 41.2, ~240 lbs. S/p ~5 lb wt gain since her last visit.Alina wild advised again on decreasing food portion sizes as well as increasing exercise by walking or working out in a pool if necessary due to arthritis. Will continue to monitor weight loss at follow up visits.Emilie caraballo understand s and agrees. Osteoporosis 63323202 M8 5.88 BDS 12/25/2021 sig for osteopenic changesDue to risk of osteoporos is and patient's need for long-term PPI therapy, suggest bone density study to rule out osteopenia /osteoporo sis. Will schedule for bone density study with further recommenda tions pending results. Patient advised to continue Calcium + Vitamin D BID. Incontinence of feces 72 751709 R15.9 S/p recurrence ~2/month.T o keep a food journalTo increase her Metamucil to BID.Advise d patient to continue her high fiber diets. Also advised patient to perform anal sphincter strengthen ing exercises several times daily and as needed. Fiber literature given previously . To call office if episodes recur. Dysphagia 31990116 R13.1 0 Resolved. Likely secondary to patient's [...] Member ID Schilling Member ID Guarantor Name 11/30/2023 1 [employer] (MEDICARE) Silvana Shahid Payam [id number] Silvana Shahid Payam 11/29/2023 2 [facility] HEALTHCARE OPTION - PLAN F (MEDICARE SUPPLEMENT) Silvana Shahid Payam [id number] Silvana F Payam 11/29/2023 1 [place] Silvana Shahid Payam [id number] Silvana Shahid Payam 11/30/2023 2 [facility] HEALTHCARE OPTION - PLAN F (MEDICARE SUPPLEMENT) Silvana Shahid Rich Payam [id number] Silvana Shahid Payam Notes Date Note Type [...] f/u of multiple GI complaints. SOCORRO WU, MAILING CLERK [address] [place], [address], [facility] [place] 11/19/2021 11:00:50 11/29/2022 text/html DysphagiaReporte d [...] Denies sig lactose ingestion.Gastroenterol ogy General HPIReported bypatient.Notes:DONN WEBB Last bone density 01/31/2016 normal bone mineral density.Due for repeat OBESITY - BMI:41.2 ~240 Lbs PT is a 81 y/o F with PMHx sig for GERD, colon polyp, HLP, meningioma- s/p brain sx, seizures and osteoporosis who presents for f/u of multiple GI complaints. SOCORRO WU, FR[facility] [place], [address], [facility] [place] 11/29/2022 15:51:57 01/20/2023 text/html DysphagiaReporte d [...] of multiple GI complaints. ANN-MARIE BLANCO MD [address] [place], [address], [address] 02/07/2023 16:58:22 06/09/2023 text/html DysphagiaReporte d bypatient.Location:thro [...] of multiple GI complaints. ANN-MARIE BLANCO MD [address] [place], [address], [facility] [place] 07/24/2023 13:47:18 OBGyn Episode No OBEpisode recorded.
--- OUTSIDE RECORDS SUMMARY | 2024-08-03 02:41 | XMS_ITS | Data Portability ---
Author Organization [place] - [facility] [employer] [facility] Address [address] [place] [address] Care Team Providers Care Behavioral Therapist Name Role Phone DEBI MATOS Primary Care [...] By Organization Details Last Modified Time 09/15/2023 [id number] The member was located in {{[facility]}} at the time of this call. Miscellaneous [...] spent in service of member: {{ 10#}} [email or web address] Not available 09/15/2023 15:29:17 09/29/2023 [id number] General Information During the time of {{telephonic* vide o call}} member was located in {{[facility] tra veling outside state of origin}}. Member is enrolled in {{diabetes hyperte nsion* diabetes & hyptertension}} program. During the call the nurse reviewed patients blood pressure and was able to address patient's concerns and/or questions. Clinical Picture Average BP Over last {{7 30*}} days: Systolic {{ 125#}} Diastolic {{ 70#}} . Based on member's readings and the parameters set by [employer] RELIGIOUS STUDIES PROFESSOR, member's blood pressure is {{low at goal [...] {{Time 4#}} All members must have an RELIGIOUS STUDIES PROFESSOR visit at minimum every 6 months while active, or when meeting escalation criteria. A [employer] RELIGIOUS STUDIES PROFESSOR follow-up visit {{was scheduled today was offered today and the member refused was not offered/needed today}}. Members next [employer] RELIGIOUS STUDIES PROFESSOR follow-up appointment is confirmed on {{Date}} between [...] to member's care plan for additional details. [email or web address] Not available 09/29/2023 16:06:52 10/13/2023 [id number] General Information Member was contacted via interactive {{telephonic outreach* video call}} and was located in {{[facility] outside our service area}}. Call recording disclaimer [...] readings and the parameters set by [employer] RELIGIOUS STUDIES PROFESSOR, member's blood pressure is {{low at goal* [...] no symptoms endorsed by member*}} a [employer] RELIGIOUS STUDIES PROFESSOR follow-up visit {{has has not*}} been recommended. [...] PM EDT All members must have an RELIGIOUS STUDIES PROFESSOR visit at minimum every 6 months while active, or when meeting escalation criteria. A [employer] RELIGIOUS STUDIES PROFESSOR follow-up visit {{was scheduled today was offered today and the member refused was not offered/needed today* is already scheduled}}. Members next [employer] RELIGIOUS STUDIES PROFESSOR follow-up appointment {{has not been scheduled* is on}} {{}} between {{9:00-11:00 AM 11:00-2:00 PM 2:00-5:00 pm}}. Total time spent in the care of the member: {{ 15#}} minutes [email or web address] Not available 10/13/2023 16:08:10 10/27/2023 [id number] General Information Member was contacted via interactive {{telephonic outreach* video call}} and was located in {{[facility] a state outside our service area}}. Call [...] member's readings and the parameters set by [facility] RELIGIOUS STUDIES PROFESSOR, member's blood pressure is {{low at goal* [...] no symptoms endorsed by member*}}, a [employer] RELIGIOUS STUDIES PROFESSOR follow-up visit {{has has not*}} been recommended. [...] {{ 11/09#}} All members must have an RELIGIOUS STUDIES PROFESSOR visit at minimum every 6 months while active, or when meeting escalation criteria. A [employer] RELIGIOUS STUDIES PROFESSOR follow-up visit {{was scheduled today was offered today and the member refused was not offered/needed today* is already scheduled}}. Members next [employer] RELIGIOUS STUDIES PROFESSOR follow-up appointment {{has not been scheduled is on}} {{}} between {{9:00-11:00 AM 11:00-2:00 PM 2:00-5:00 pm}}. Total time spent in the care of the member: {{ 10#}} minutes [email or web address] Not available 10/27/2023 15:39:53 11/10/2023 [id number] General Information Member was contacted via interactive {{telephonic outreach* video call}} and was located in {{[facility] outside our service area}}. Call recording disclaimer [...] member's readings and the parameters [facility]ESS[facility], member's blood pressure is {{low at goal* [...] one- sided weakness or facial droop seizure marible re vomiting severe diarrhea inability to eat [...] no symptoms endorsed by member*}}, a [employer] RELIGIOUS STUDIES PROFESSOR follow-up visit {{has has not*}} been recommended. [...] {{ 12/07#}} All members must have an RELIGIOUS STUDIES PROFESSOR visit at minimum every 6 months while active, or when meeting escalation criteria. A [facility] RELIGIOUS STUDIES PROFESSOR follow-up visit {{was scheduled today was offered today and the member refused was not offered/needed today* is already scheduled}}. Members next [facility] RELIGIOUS STUDIES PROFESSOR follow-up appointment {{has not been scheduled is on}} {{}} between {{8:00 AM - 10:59 AM ET 11:00 AM - 1:59 PM ET 2:00 PM - 5:00 PM ET}}. Total time spent in the care of the member: {{ 15#}} minutes [email or web address] Not available 11/10/2023 16:04:17 Reason for Referral None Reported. Problems Name Problem SNOMED Code Status Onset Date Resolution Date Notes Provider Name and Address Organization Details Recorded Time Essential hypertension 23669864 Active 2023 Carisa osorio, RELIGIOUS STUDIES PROFESSOR [address] , [place], [address], [facility] 14:05:29 Prediabetes 975548495 Active 2023 aCrisa osorio, RELIGIOUS STUDIES PROFESSOR [address] , [place], [address], [facility] 14:05:31 Obesity 881291510 Active 2023 Carisa osorio, RELIGIOUS STUDIES PROFESSOR [address] , [place], [address], [facility] 14:05:43 Atrial fibrillation 95177137 Active 2023 Carisa osorio, RELIGIOUS STUDIES PROFESSOR [address] , [place], [address], [facility] 4 14:05:49 Anxiety 69644449 Active 2023 Carisa osorio, RELIGIOUS STUDIES PROFESSOR [address] , [place], [address], [facility] 14:05:56 Depressive disorder 06590760 Active 2023 Carisa osorio, RELIGIOUS STUDIES PROFESSOR [address] , [place], [address], [facility] 14:06:02 Epilepsy 87046381 Active 2023 Carisa Hamilton devon, RELIGIOUS STUDIES PROFESSOR [address] , [place], [address], [place] [facility] 14:06:12 Sleep apnea 01900407 Active 2023 Carisa Hamilton devon, RELIGIOUS STUDIES PROFESSOR [address] , [place], [address], [place] [facility] 14:06:20 Hypothyroidism 85350871 Active 2023 Carisa osorio, RELIGIOUS STUDIES PROFESSOR [address] , [place], [address], [place] [facility] 14:06:28 Hyperlipidemia 69003967 Active 2023 Carisa osorio, RELIGIOUS STUDIES PROFESSOR [address] , [place], [address], [place] [facility] 14:06:34 Problem Notes None recorded. Procedures Surgical History Date Name Laterality Status Provider Name and Address Organization Details Recorded Time cholecystectomy completed Carisa Blunt , TEJINDER [address], [place], [address], [place] [facility] 07/03/2023 14:01:30 chin lift completed Carisa Blunt , TEJINDER [address], [place], [address], [place] [facility] 07/03/2023 14:01:49 total replacement of left knee joint completed Carisa Blunt NP [address], [place], [address], [place] [facility] 07/03/2023 14:02:00 total replacement of right knee joint completed Carisa Blunt NP [address], [place], [address], [place] [facility] 07/03/2023 14:02:10 Exploration maxillary sinus completed Carisa Blunt NP [address], [place], [address], [facility] 07/03/2023 14:02:41 craniectomy completed Carisa Jose Raul , TEJINDER [address], [place], [address], [facility] 07/03/2023 14:02:52 Imaging Results None recorded. [...] Updated DateTime 10/27/2023 162.56 cm 40.3 kg/m2 741412.21 g Hany Wells [place] - [facility] 10/27/2023 15:39:57 Social History Question Answer Notes LastModified by Organizat ion Details LastModified Time Tobacco Smoking Status Former Smoker Carisa NolanErica, RELIGIOUS STUDIES PROFESSOR [address], [place], [address], [place] - [facility] 07/03/2023 13:54:10 What Is Your Level Of Caffeine Consumption? Moderate Information not available 07/03/2023 When Did You Quit Smoking? 16+yearssincel astcigarette Information not available 07/03/2023 Sex: Unknown Functional Status Question Answer Note LastModified by Organization D etails LastModified Time What is your level of alcohol consumption? Moderate Information not available 07/03/2023 Mental Status None recorded. Family History Nothing Reported. Medical History Condition Response Hypothyroidism Y Depression Y Anxiety Disorder Y Obesity Y High Cholesterol Y Diabetes Y Seizures/Epilepsy Y Sleep Apnea Y Hypertension Y Gynecological HistoryNo gynecological history recorded. Obstetrics History GPAL:G 0 P 0 0 0 0 Past Encounters Encounter ID Performer Location Encounter Start Date Encounter Closed Date Diagnosis/Indication Diagnosis SNOMED-CT Code Diagnosis ICD10 Code Diagnosis Note [id number] Carisa Pedro-Jessicawv er, RELIGIOUS STUDIES PROFESSOR PS_Provid er Schedule [address] [place] [address] 07/03/2023 13:40:24 07/03/2023 14:08:36 Essential hypertension 39966647 I10 Prediabetes 563415985 R7 3.03 [id number] Carisa Pedro-Jessicawv er, RELIGIOUS STUDIES PROFESSOR NS_Nursin g Schedule [address] [place] [address] 07/21/2023 15:13:02 07/21/2023 16:39:49 Essential hypertension 67458270 I10 Prediabetes 415919347 R7 3.03 [id number] Carisa Nolanon-Fawv er, RELIGIOUS STUDIES PROFESSOR NS_Nursin g Schedule [address] [place] [address] 08/01/2023 15:56:41 08/01/2023 17:01:56 Essential hypertension 78161861 I10 Prediabetes 768452214 R7 3.03 [id number] Carisa Wason-Fawv er, RELIGIOUS STUDIES PROFESSOR NS_Nursin g Schedule [address] [place] [address] 08/04/2023 15:02:39 08/04/2023 16:55:57 Essential hypertension 13875435 I10 Prediabetes 590845186 R7 3.03 [id number] Carisa Wason-Fawv er, RELIGIOUS STUDIES PROFESSOR NS_Nursin g Schedule [address] [place] [address] 09/01/2023 15:48:33 09/01/2023 17:00:58 Essential hypertension 56455223 I10 Prediabetes 527996067 R7 3.03 [id number] Carisa Wason-Fawv er, RELIGIOUS STUDIES PROFESSOR NS_Nursin g Schedule [address] [place] [address] 6 09/15/2023 15:19:55 09/16/2023 08:36:48 Essential hypertension 90614677 I10 Prediabetes 834930291 R7 3.03 [id number] Carisa Wason-Fawv er, RELIGIOUS STUDIES PROFESSOR NS_Nursin g Schedule [address] [place] [address] 09/29/2023 15:55:33 09/29/2023 17:01:09 Essential hypertension 84371653 I10 Prediabetes 823864255 R7 3.03 [id number] Carisa Wason-Fawv er, RELIGIOUS STUDIES PROFESSOR NS_Nursin g Schedule [address] [place] [address] 10/13/2023 15:55:16 10/13/2023 17:04:07 Essential hypertension 60477511 I10 Prediabetes 176099130 R7 3.03 [id number] Carisa Wason-Fawv er, RELIGIOUS STUDIES PROFESSOR NS_Nursin g Schedule [address] [place] [address] 10/27/2023 15:31:55 10/27/2023 16:50:14 Essential hypertension 38036740 I10 Prediabetes 952978158 R7 3.03 [id number] Carisa Wason-Fawv er, RELIGIOUS STUDIES PROFESSOR NS_Nursin g Schedule [address] [place] [address] 11/10/2023 15:53:20 11/10/2023 16:40:14 Essential hypertension 98742516 I10 Health Concerns Section Related Observation LastModified by Organization Detai ls LastModified Time None Recorded Concern Status LastModified by Organization Details LastModified Time None Recorded Advance Directives Directive None Recorded Payers Insurance Date Sequence Insurance Name Policy Number Policy Schilling Covered Member ID Schilling Member ID Guarantor Name 11/27/2023 [place] Silvana Hare [id number] Silvana Hare 10/27/2023 [place] Silvana Hare [id number] Silvana Hare 10/27/2023 1 [place] Silvana Hare [id number] Silvana Hare 07/03/2023 1 [facility] (MEDICARE REPLACEMENT/ ADVANTAGE - HMO) Silvana Hare [id number] Silvana Hare 12/22/2023 2 [facility] (MEDICARE SUPPLEMENT) Silvana Hare [id number] Silvana Hare OBGyn Episode No OBEpisode recorded.
--- OUTSIDE RECORDS SUMMARY | 2024-08-03 02:41 | XMS_ITS | Continuity of Care Document ---
Author Organization [facility] Address [address] [place] [address] [place] [address] Phone Care Team Providers Care Clock Smith Name Role Phone Ildefonso Peralta MD Unavailable [...] Copied on Encounter OFFICE/OUTPA TIENT VISIT, EST [facility], [address], [place], [place], [address], [place] tel:[phone] [facility] ear pain1 (chief complaint) hypothyroi dism1 (chief complaint) anxiety1 (chief complaint) Otalgia, right earGeneralized Anxiety DisorderHypothyroid ism May- 5 Fabian Fregoso. [address], [place], [place], [address] , [place]. tel:[phone] [facility], [address], [place], [place], [address], [place] tel:[phone] [facility] No Information 5 Fabian Ildefonso. [address], [place], [place], [address] , [place]. tel:[phone] OFFICE/OUTPA TIENT VISIT, [facility], [address], [place], [place], [address], [place] tel:[phone] [facility] sick (chief complaint) HLP (chief complaint) tremor1 (chief complaint) HTN (chief complaint) Acute bronchitisEssential (primary) hypertensionTremorM ixed hyperlipidemia 5 Fabian Fregoso. [address], [place], [place], [address] , [place]. tel:[phone] [facility], [address], [place], [place], [address], [place] tel:[phone] [facility] No Information 5 Fabian Ildefonso. [address], [place], [place], [address] , [place]. tel:[phone] [facility], [address], [place], [place], [address], [place] tel:[phone] [facility] No Information 5 Fabian Fregoso. [address], [place], [place], [address] , [place]. tel:[phone] OFFICE/OUTPA TIENT VISIT, [facility], [address], [place], [place], [address], [place] tel:[phone] [facility] thyroid1 (chief complaint) anxiety1 (chief complaint) HTN (chief complaint) seizure1 (chief complaint) HLP (chief complaint) tremor1 (chief complaint) HypothyroidismTremo rEssential (primary) hypertensionMixed hyperlipidemiaOther epilepsyGeneralized Anxiety DisorderPolyp of colonOsteopenia 5 Fabian Fregoso. [address] [place], [place], [address] , [place]. tel:[phone] Family History Family Member Type Diagnosis Age At Onset Father Problem of 90 old age Sister Problem essential tremor Mother Problem of 80s ?? CVA Payers Payer name Insurance type Covered constitution party ID Authoriza tion(s) [employer] Of [place] WPS MB [id number] [employer] Secondary CI [id number] Social History Type Description Quantity Date Captured [...] ordered Referral Referred To: FLAKITO [facility]AU[facility] [address] [place], [place], [id number] Ordered: Referrals: Allopathic & Osteopathic Physicians : [...] ssential tremor. pt was seeing neurology [place]. She just moved here .Pt needs referral to neurology Pt is on primidone for the past several years but has not helped much. Her neurologist [place] ruled her out of parkinson disease. Instructions Date Instruction Additional Infor jacob No Information Assessments Type Assessment Date assessment Otalgia, right ear assessment Generalized Anxiety Disorder May assessment Hypothyroidism Mental Status Date Cognitive Assessment Orientation - Ursa ed to time, place, person, situation.
--- OUTSIDE RECORDS SUMMARY | 2024-08-03 02:41 | XMS_ITS | Clinical Summary ---
Author Organization [facility] Address [address] [place] [address] Care Team Providers Care Button Cutting Machine Operator Name Role Phone Jose Norton MD Primary Care Provider [phone] Allergies Active Allergy Reactions Criticality Noted Date [...] Type Department Care Team Description 05/13/2024 Abstract [facility] [address] [place] [address] Robe Mendoza MA 05/12/2024 Orders Only [facility] THREE [facility], [facility] [address] [place] [address] Sadie Villasenor MD from Last 3 Months Family History Medical [...] Comments Blood Pressure 112/70 02/13/2024 11:49 AM LOCOMOTIVE ENGINEER DIESEL Pulse 71 02/13/2024 11:49 AM LOCOMOTIVE ENGINEER DIESEL Temperature - - Respiratory Rate - - Oxygen Saturation 91% 02/13/2024 11: 49 AM LOCOMOTIVE ENGINEER DIESEL Inhaled Oxygen Concentration - - Weight 112.2 kg (247 lb 6.4 oz) 024 11:49 AM LOCOMOTIVE ENGINEER DIESEL Height 162.6 cm (5' 4 ) 02/13/2024 11:4 9 AM LOCOMOTIVE ENGINEER DIESEL Body Mass Index 42.47 02/13/2024 11:49 AM LOCOMOTIVE ENGINEER DIESEL Plan of Treatment Upcoming Encounters Date Type Department Care Team (Late st Contact Info) Description 08/24/2024 1:00 PM CDT Office Visit [facility] - [address], [address] [place] [address] Monet Beltran MD [address] [place] [address] 09/03/2024 12:00 PM CDT Office Visit [facility] [address] Sadie Villasenor MD [address] [facility] [address] [place] [address] Health Maintenance Due Date Last Done Comments [...] - 2023-2 5 season) 2023 PHQ-2 (Physician [place]) 03/24/2024 Meningococcal B Vaccine Aged Out No [...] Result from Last 3 Months Insurance MEDICARE [facility] Care Teams Button Cutting Machine Operator Relationship Specialty Start Date End Date Jose Norton MD [address] [place] [address] PCP - General FAMILY PRACTICE 02/13/24
--- OUTSIDE RECORDS SUMMARY | 2024-08-03 02:41 | XMS_ITS | Patient Health Record ---
Author Organization [facility] Address [address] [place] [phone] Support Name Relationship Address Phone JAYJAY JACKSON Guarantor Unknown [phone] ALLERGIES No Known Allergies REASON FOR REFERRAL [...] Hypothyroidism, unspecified (E03.9) Active confirmed Hypothyr oidism (54657289) Problem Essential tremor (G25.0) Active confirmed 197227174 Problem Essential hypertension (I10) Active confirmed 73163380 Problem Gastroesophageal reflux disease without esophagitis (K21.9) Active confirmed 571853242 Problem Depression, unspecified depression type (F32.9) Active confirmed 48595083 Problem Psychophysiological insomnia (F51.04) Active confirmed 084848801 Problem Hyperlipemia, mixed (E78.2) Active confirmed PLAN OF TREATMENT Pending Test Test Name Order Date Chest X-ray PA and lateral 06/06/2020 Urinalysis, Complete 06/06/2020 Urine Culture and Sensitivity 06/06/2020 Insurance Providers Payer Name Payer Address Payer Phone Subscriber Number Group Number Insured Name Patient Relationship to Insured Coverage Start Date Coverage End Date [employer] [place] [employer] [address] [address] [place] [address] [id number] JAYJAY JACKSON Self - patient is the insured [facility] Medicare Supplement [address] JYOTI RAY FENG [phone] [id number] JAYJAY JACKSON Self - patient is the insured MEDICAL (GENERAL) HISTORY Medical History History ICD Code Hypertension Hyperlipidemia Hypothyroid Depression Surgical History Surgery Date(Month/Year) menningioma
--- OUTSIDE RECORDS SUMMARY | 2024-08-03 02:41 | XMS_ITS | Data Portability ---
Author Organization [place] - [employer], [employer], [facility] Address [address] [place] [address] Care Team Providers Care Medieval English Literature Professor Name Role Phone DEBI MATOS Primary Care Provider KARAN YAP Referring Provider [phone] ANN-MARIE KLINE Referring Provider BRENDA PROCTOR [...] Care Coordination (not separately reported) Additional notes: [email or web address] Not available 08/12/2023 16:50:23 09/30/2023 09/30/2023 A [...] Care Coordination (not separately reported) Additional notes: [email or web address] Not available 09/30/2023 14:03:40 11/26/2023 11/26/2023 A [...] None recorded. Lab respiratory allergen panel - [facility] 2023 024 [place] [facility], [address] [place], [address], 4 04:34:48 CBC 2023 024 [place] [facility], [address], [place], [address], 4 04:34:56 vitamin B12 2014 015 kalyan smith [facility], [address] [place], [address], 5 10:40:49 insulin like growth factor 1 (igf-I) [address] [facility], [address], [place], [address], 5 10:40:49 cortisol, free 24-hour urine lc/ms/ms [address] [facility], [address], [place], [address], 5 10:40:49 comprehensi ve metabolic panel 2014 015 [facility], [address], [place], [address], 5 10:40:49 T4 free 2014 015 [facility], [address], [place], [address], 5 10:40:49 thyroid stimulating hormone (TSH) 2014 015 [facility], [address] [place], [address], 5 10:40:49 venipunctur e 1 2014 015 [facility], [address], [place], [address], 5 10:40:49 Referral None recorded. Procedures noninvasive ear or pulse oximetry by continuous overnight monitoring (PROC) 2023 024 ANTHONY Not available 13:19:27 polysomnogr aphy, split night (PROC) - split night with bipap titration 2023 024 [email or web address] Ree Hairston MD, [address] [facility] [address], [place], [address], 09:24:04 Surgeries None recorded. Imaging CT, chest, w/o contrast 2023 024 [facility], [address], [place], [address], 4 09:19:53 Medication Orders codeine 10 mg-guaifene sin 100 mg/5 mL oral liquid 2014 015 [email or web address] Not available 5 16:16:12 Patient TargetsNo targets recorded. Patient Instructions Encounter Date Encounter Id Patient Instructions Last Modified By Organization Details Last Modified Time 08/12/2023 [id number] maggy's thyroiditis: care instructions [email or web address] Not available 08/12/2023 16:49:24 pneumonia: care instructions [email or web address] Not available 08/12/2023 16:49:24 sleep apnea: car e instructions [email or web address] Not available 08/12/2023 16:49:24 -Outside records from patient's hospitalization at [facility] reviewed in detail as well as records in [place] from primary care and cardiology reviewed -Please note: This note was completed using a voice recognition software. All reasonable attempts have been made to correct errors, however; any typographical, unanticipated grammatical, syntax, homophones and other interpretative errors are unintentional. Please disregard these errors. [email or web address] Not available 08/12/2023 16:51:33 09/30/2023 [id number] epworth sleepine ss scale* [email or web address] Not available 09/30/2023 14:07:22 complete PFT w/ post bronchodilator spirometry* ANTHONY Not available 08/01/2024 05:01:01 -Outside records from patient's hospitalization at [facility] reviewed in detail as well as records in [place] from primary care and cardiology reviewed -Please note: This note was completed using a voice recognition software. All reasonable attempts have been made to correct errors, however; any typographical, unanticipated grammatical, syntax, homophones and other interpretative errors are unintentional. Please disregard these errors. Not available 09/29/2023 18:37:41 11/26/2023 [id number] high cholesterol : care instructions Not available 11/26/2023 12:15:02 -Outside records from patient's hospitalization at [facility] reviewed in detail as well as records in [place] from primary care and cardiology reviewed -Please note: This note was completed using a voice recognition software. All reasonable attempts have been made to correct errors, however; any typographical, unanticipated grammatical, syntax, homophones and other interpretative errors are unintentional. Please disregard these errors. [email or web address] Not available 11/26/2023 01:14:04 Reason for Referral None Reported. Results Created Date Observation Date Name Description Value Unit Range Abnormal Flag Note LastModifiedBy Organization Detail LastModifiedTime 10/21/19 15 10/28/2014 CMP, serum or plasm a glucose 105 mg/dL 65-99 high Fasti ng refer ence inter ricky Not Available [facility] [address] [place], [address], 11/17/2014 15:37:23 10/21/19 15 10/28/2014 CMP, serum or plasm a urea nitrogen (BUN) 13 mg/dL 7-25 Not Available [facility] [address], [place], [address], 11/17/2014 15:37:23 10/21/19 15 10/28/2014 CMP, serum or plasm a creatinine 0.64 mg/dL 0.60-0 .93 For patie nts >49 years of age, the refer ence limit for Creat inine is appro ximat jerson 13% highe r for peopl e ident ified as Afric an-Am marimar n. Not Available [facility] [address], [place], [address], 11/17/2014 15:37:23 10/21/19 15 10/28/2014 CMP, serum or plasm a eGFR non-afr. north korean 90 mL/mi n/1.7 3m2 > or = 60 Not Available [facility] [address] [place], [address], 11/17/2014 15:37:23 10/21/19 15 10/28/2014 CMP, serum or plasm a eGFR 104 mL/mi n/1.7 3m2 > or = 60 Not Available [facility] [address] [place], [place] [address]y [address] [place], [address], 11/17/2014 15:37:23 10/21/19 15 10/28/2014 CMP, serum or plasm a BUN/creatini ne ratio NOT APPLIC ABLE (calc ) 6-22 Not Available [facility] [address] [place], [place] [address]y [address] [place], [address], 11/17/2014 15:37:23 10/21/19 15 10/28/2014 CMP, serum or plasm a sodium 141 mmol/ L 135-14 6 Not Available [facility] [address] [place], [place] [address]y [address] [place], [address], 11/17/2014 15:37:23 10/21/19 15 10/28/2014 CMP, serum or plasm a potassium 3.8 mmol/ L 3.5-5. 3 Not Available [facility] [address] [place], [place] [address]y [address] [place], [address], 11/17/2014 15:37:23 10/21/19 15 10/28/2014 CMP, serum or plasm a chloride 103 mmol/ L 98-110 Not Available [facility] [address] [place], [place] [address]y [address] [place], [address], 11/17/2014 15:37:23 10/21/19 15 10/28/2014 CMP, serum or plasm a carbon dioxide 27 mmol/ L 19-30 Not Available [facility] [address] [place], [place] [address]y [address] [place], [address], 11/17/2014 15:37:23 10/21/19 15 10/28/2014 CMP, serum or plasm a calcium 9.6 mg/dL 8.6-10 .4 Not Available [facility] [address] [place], [place] [address]y [address], [place], [address], 11/17/2014 15:37:23 10/21/19 15 10/28/2014 CMP, serum or plasm a protein, total 6.5 g/dL 6.1-8. 1 Not Available [facility] [address] [place], [place] [address]y [address], [place], [address], 11/17/2014 15:37:23 10/21/19 15 10/28/2014 CMP, serum or plasm a albumin 4.2 g/dL 3.6-5. 1 Not Available [facility] [address] [place], [place] [address]y [address] [place], [address], 11/17/2014 15:37:23 10/21/19 15 10/28/2014 CMP, serum or plasm a globulin 2.3 g/dL_ (calc ) 1.9-3. 7 Not Available [facility] [address] [place], [place] [address]y [address] [place], [address], 11/17/2014 15:37:23 10/21/19 15 10/28/2014 CMP, serum or plasm a albumin/glob ulin ratio 1.8 (calc ) 1.0-2. 5 Not Available [facility] [address] [place], [place] [address]y [address], [place], [address], 11/17/2014 15:37:23 10/21/19 15 10/28/2014 CMP, serum or plasm a bilirubin, total 0.5 mg/dL 0.2-1. 2 Not Available [facility] [address] [place], [place] [address]y [address], [place], [address], 11/17/2014 15:37:23 10/21/19 15 10/28/2014 CMP, serum or plasm a alkaline phosphatase 83 U/L 33-130 Not Available [facility] [address] [place] [address] [address] [place], [address], 11/17/2014 15:37:23 10/21/19 15 10/28/2014 CMP, serum or plasm a AST 18 U/L 10-35 Not Available [facility] [address] [place] [address] [address] [place], [address], 11/17/2014 15:37:23 10/21/19 15 10/28/2014 CMP, serum or plasm a ALT 16 U/L 6-29 Not Available [facility] [address] [place] [address], [address], 11/17/2014 15:37:23 10/21/19 15 10/28/2014 T4, free, serum T4, free 1.0 NG/dL 0.8-1. 8 Not Available [facility] [address] [place] [address], [address], 11/17/2014 15:37:24 10/21/19 15 10/28/2014 TSH, serum or plasm a TSH 2.43 mIU/L 0.40-4 .50 Not Available [facility] [address] [place] [address], [address], 11/17/2014 15:37:25 10/21/19 15 10/28/2014 vitam in B12, serum vitamin B12 715 pg/mL 200-11 00 REPOR T COMME NT: FASTI NG:NO Not Available [facility] [address] [place] [address] [address] [facility], [place], [address], 11/17/2014 15:37:26 10/21/19 15 10/28/2014 igf-1 (insu nuzhat gamez growt h facto r), serum igf I, lc/MS 129 NG/mL 34-245 Not Available [facility] [address] [facility] [address] [place], [address], 11/17/2014 15:37:27 10/21/19 15 10/28/2014 igf-1 (insu katerine-l franco growt h facto r), serum Z score (female) 0.4 SD -2.0 - +2.0 This test was julietel dom and its perfo rmanc e mario cteri stics have been deter mined by Thierry Perez . Perfo rmanc e mario cteri stics refer to the jessica tical perfo rmanc e of the test. Not Available [facility] [address] [facility] [address] [place], [address], 11/17/2014 15:37:27 10/21/19 15 10/28/2014 corti miah, free, 24-ho ur urine total volume 1000 mL Not Available [facility] [address] [facility] [address] [place], [address], 11/17/2014 15:37:28 10/21/19 15 10/28/2014 corti miah, free, 24-ho ur urine cortisol, free, urine 17.8 mcg/2 4_h 4.0-50 .0 Jessica sis perfo rmed by Kimberlyn Arriaga Spect romet ry Not Available [facility] [address] [facility] [address] [place], [address], 11/17/2014 15:37:28 10/21/19 15 10/28/2014 corti miah, free, 24-ho ur urine creatinine, urine 1.14 g/24_ h 0.63-2 .50 Not Available [facility] [address] [facility] [address] [place], [address], 11/17/2014 15:37:28 10/24/19 24 10/25/2023 CBC WITH DIFFE RENTI AL/PL ATELE T WBC 5.1 x10e3 /uL 3.4-10 .8 normal Not Available [facility] ([facility]) [address] [facility], [place], [address], 10/25/2023 06:13:26 10/24/19 24 10/25/2023 CBC WITH DIFFE RENTI AL/PL ATELE T RBC 4.59 x10e6 /uL 3.77-5 .28 normal Not Available [facility] ([facility]) [address] [facility], [place], [address], 10/25/2023 06:13:26 10/24/19 24 10/25/2023 CBC WITH DIFFE RENTI AL/PL ATELE T hemoglobin 14.6 g/dL 11.1-1 5.9 normal Not Available [facility] ([facility]) [address] [facility], [place], [address], 10/25/2023 06:13:26 10/24/19 24 10/25/2023 CBC WITH DIFFE RENTI AL/PL ATELE T hematocrit 44.1 % 34.0-4 6.6 normal Not Available [facility] ([facility]) [address] [facility], [place], [address], 10/25/2023 06:13:26 10/24/19 24 10/25/2023 CBC WITH DIFFE RENTI AL/PL ATELE T MCV 96 fL 79-97 normal Not Available [facility] ([facility]) [address] [place], [address], 10/25/2023 06:13:26 10/24/1910/25/2023 CBC WITH DIFFE RENTI AL/PL ATELE T MCH 31.8 pg 26.6-3 3.0 normal Not Available [facility] ([facility]) [address] [place], [address], 10/25/2023 06:13:26 10/24/19 24 10/25/2023 CBC WITH DIFFE RENTI AL/PL ATELE T MCHC 33.1 g/dL 31.5-3 5.7 normal Not Available [facility] ([facility]) [address] [facility], [place], [address], 10/25/2023 06:13:26 10/24/19 24 10/25/2023 CBC WITH DIFFE RENTI AL/PL ATELE T RDW 13.4 % 11.7-1 5.4 Not Available [facility] ([facility]) [address] [facility], [place], [address], 10/25/2023 06:13:26 10/24/19 24 10/25/2023 CBC WITH DIFFE RENTI AL/PL ATELE T platelets 251 x10e3 /uL 150-45 0 normal Not Available [facility] ([facility]) [address] [facility], [place], [address], 10/25/2023 06:13:26 10/24/19 24 10/25/2023 CBC WITH DIFFE RENTI AL/PL ATELE T neutrophils 58 % not estab. normal Not Available [facility] ([facility]) [address] [facility], [place], [address], 10/25/2023 06:13:26 10/24/19 24 10/25/2023 CBC WITH DIFFE RENTI AL/PL ATELE T lymphs 30 % not estab. normal Not Available [facility] ([facility]) [address] [place], [address], 10/25/2023 06:13:26 10/24/19 24 10/25/2023 CBC WITH DIFFE RENTI AL/PL ATELE T monocytes 9 % not estab. normal Not Available [facility] ([facility]) [address] [place], [address], 10/25/2023 06:13:26 10/24/19 24 10/25/2023 CBC WITH DIFFE RENTI AL/PL ATELE T eos 2 % not estab. normal Not Available [facility] ([facility]) [address] [place], [address], 10/25/2023 06:13:26 10/24/19 24 10/25/2023 CBC WITH DIFFE RENTI AL/PL ATELE T basos 1 % not estab. normal Not Available [facility] ([facility]) [address] [place], [address], 10/25/2023 06:13:26 10/24/1910/25/2023 CBC WITH DIFFE RENTI AL/PL ATELE T neutrophils (absolute) 3.0 x10e3 /uL 1.4-7. 0 normal Not Available [facility] ([facility]) [address] [place], [address], 10/25/2023 06:13:26 10/24/19 24 10/25/2023 CBC WITH DIFFE RENTI AL/PL ATELE T lymphs (absolute) 1.5 x10e3 /uL 0.7-3. 1 normal Not Available [facility] ([facility]) [address] [place], [address], 10/25/2023 06:13:26 10/24/19 24 10/25/2023 CBC WITH DIFFE RENTI AL/PL ATELE T monocytes(ab solute) 0.5 x10e3 /uL 0.1-0. 9 normal Not Available [facility] ([facility]) [address] [place], [address], 10/25/2023 06:13:26 10/24/1910/25/2023 CBC WITH DIFFE RENTI AL/PL ATELE T eos (absolute) 0.1 x10e3 /uL 0.0-0. 4 normal Not Available [facility] ([facility]) [address] [place], [address], 10/25/2023 06:13:26 10/24/19 24 10/25/2023 CBC WITH DIFFE RENTI AL/PL ATELE T baso (absolute) 0.0 x10e3 /uL 0.0-0. 2 normal Not Available [facility] ([facility]) [address] [facility], [place], [address], 10/25/2023 06:13:26 10/24/19 24 10/25/2023 CBC WITH DIFFE RENTI AL/PL ATELE T immature granulocytes 0 % not estab. Not Available [facility] ([facility]) [address] [facility], [place], [address], 10/25/2023 06:13:26 10/24/19 24 10/25/2023 CBC WITH DIFFE RENTI AL/PL ATELE T immature grans (abs) 0.0 x10e3 /uL 0.0-0. 1 Not Available [facility] ([facility]) [address] [facility], [place], [address], 10/25/2023 06:13:26 10/24/19 24 10/24/2023 ABN OPTIO [...] neces aguila follo w-up. Not Available [facility] ([facility]) [address] [facility], [place], [address], 10/25/2023 06:13:27 08/12/19 24 07/20/2023 XR, chest No observ ation record ed. Not Available 2023 09:29:45 08/12/19 24 07/16/2023 CT, angio gram, chest , w/ contr ast No observ ation record ed. Not Available 2023 09:31:06 08/12/19 24 07/16/2023 XR, chest No observ ation record ed. [email or web address] Not Available 2023 09:33:01 08/14/19 24 07/24/2016 polys omnog salty , split night (PROC ) No observ ation record ed. [place] [facility] [address], [place], [address], 10/21/2023 09:24:03 09/30/19 24 09/12/2023 CT, chest , w/o contr ast No observ ation record ed. [place] [id number] [facility] [address], [place], [address], 09/30/2023 09:19:58 10/01/19 24 09/30/2023 nonin vasiv e ear or pulse oxime try by claudio holleyn ight monit oring (PROC ) No observ ation record ed. [email or web address] Not Available 10/01 17:16:45 10/02/19 24 09/30/2023 CPAP compl iance * No observ ation record ed. [email or web address] Not Available 2023 19:12:09 11/10/19 6 minut e walk test* No observ ation record ed. BAR[facility] Not Available 2023 15:29:33 11/25/19 24 11/25/2023 compl ete PFT w/ post [facility] hodil ator graciela metry * No observ ation record ed. [email or web address] Not Available 2023 12:57:46 Result Notes None recorded. Problems Name Problem SNOMED Code Status Onset Date Resolution Date Notes Provider Name and Address Organization Details Recorded Time Obstructive sleep apnea syndrome 78864279 Active 2023 TAMIKO SRIVASTAVA APRN [address], [place], [address], [facility] - [facility], [facility] 13:49:21 Bacteremia caused by Gram-negati ve bacteria 006265444093 Active 2023 TAMIKO SRIVASTAVA APRN [address], [place], [address], [facility], [facility] 4 15:57:25 Pneumonia 976318938 Active 2023 TAMIKO SRIVASTAVA APRN [address], [place], [address], [facility], [facility] 4 15:57:32 Morbid obesity 099289908 Active 2023 TAMIKO SRIVASTAVA APRN [address], [place], [address], [facility], [facility] 4 15:57:40 Maggy thyroiditis 96630912 Active 2023 TAMIKO SRIVASTAVA APRN [address], [place], [address], [facility], [facility] 4 15:58:49 Dyspnea 344748285 Active 2023 TAMIKO SRIVASTAVA APRN [address], [place], [address], [facility], [facility] 4 15:59:04 Fatigue 64434709 Active MD Antoine Benite[address], [place], [address], [facility], [facility] 5 16:16:11 Abnormal weight gain 077209461 Active MD Antoine Benitez [address], [place], [address], [facility], [facility] 5 12:48:55 Macrocytosi s 761400401 Active MD Antoine Benite[address], [place], [address], [facility], [facility] 5 12:48:55 Tremor 86480515 Active MD Antoine Benitez [address], [place], [address], [place] [facility], [facility] 5 12:48:55 Bronchitis [id number] Jonel Kline MD [address], [place], [address], [facility], [facility] 5 16:16:12 Pure hypercholes terolemia [id number] Jonel Kline MD [address], [place], [address], [facility], [facility] 5 16:16:12 Obesity [id number] Jonel Kline MD [address], [place], [address], [facility], [facility] 5 16:16:12 Benign essential hypertensio n [id number] Jonel Kline MD [address], [place], [address], [facility], [facility] 5 16:16:12 Problem Notes None recorded. Procedures Surgical History Date Name Laterality Status Provider Name and Address Organization Details Recorded Time Cholecystectomy completed [facility] 10/20/2014 11:40:37 Joint replacement, Knee completed [facility] 10/20/2014 11:40:37 Other completed [facility] 10/20/2014 11:40:37 Other completed [facility] 10/20/2014 11:40:37 Imaging Results Imaging Date Name Status LastModified by Organization Details LastModified Time 07/20/2023 XR, chest completed Information no t available 08/12/2023 09:29:45 07/16/2023 CT, angiogram, chest, w/ contrast completed Information not available 08/12/2023 09:31:06 07/16/2023 XR, chest completed Information no t available 08/12/2023 09:33:01 07/24/2016 polysomnography, split night (PROC) completed [facility] [address], [place], [address], 10/21/2023 09:24:03 09/12/2023 CT, chest, w/o contrast completed [address] [facility] Sched[facility] [address], [place], [address], 09/30/2023 09:19:58 09/30/2023 noninvasive ear or pulse oximetry by continuous overnight monitoring (PROC) completed [email or web address] Information not available 10/02/2023 17:16:45 09/30/2023 CPAP compliance* completed [email or web address] Informat ion not available 10/12/2023 19:12:09 11/10/2023 [...] Name and Address Organization Details Recorded Time [id number] ciproflox acin medicatio n Not available Not available Not available 09/30/20232022 2551 RxNorm Little delaney [place] - [facility], [facility] 4 13:31:15 [id number] Cortispor in medicatio n Not available Not available Not available 10/20/2014 41633 RxNorm Kayla delaney [place] - [facility], [facility] 5 11:30:23 Medications Name [...] Details Last Updated DateTime 5 15 /min 054444. 33090 g 162.56 cm 37.9 kg/m2 88 /min 98.4 [degF] 134 mm[Hg] 80 mm[Hg] Kayla Art [employer] [facility], [facility] 5 11:30:23 Date Recorded Body height Respiratory rate Body weight Body mass index (BMI) Body temperature Heart rate Systolic blood pressure Diastolic blood pressure Provider Name and Address Organization Details Last Updated DateTime 5 162.56 cm 14 /min 063679. 80452 g 38.4 kg/m2 98.2 [degF] 94 /min 120 mm[Hg] 80 mm[Hg] Kayla Art [employer], [facility] 5 15:23:01 Date Recorded Body height Body mass index (BMI) Body weight Heart rate Oxygen saturation Oxygen saturation in Arterial blood by Pulse oximetry Inhaled oxygen flow rate Systolic blood pressure Diastolic blood pressure Provider Name and Address Organization Details Last Updated DateTime 4 162.56 cm 41.2 kg/m2 854539. 17 g 73 /min 90 % 90 % 2 L/min 131 mm[Hg] 109 mm[Hg] Natalia Long [employer] [facility], [facility] 4 16:02:25 Date Recorded Body height Body mass index (BMI) Body weight Heart rate Oxygen saturation Oxygen saturation in Arterial blood by Pulse oximetry Systolic blood pressure Diastolic blood pressure Provider Name and Address Organization Details Last Updated DateTime 4 162.56 cm 42.1 kg/m2 310770. 13 g 71 /min 93 % 93 % 125 mm[Hg] 82 mm[Hg] Little Lira [employer], [facility] 4 13:30:52 Social History Question Answer Notes LastModified by Organizat ion Details LastModified Time Tobacco Smoking Status Former Smoker ISA Rank[facility] - [facility], [facility] 08/12/2023 16:03:57 When Did You Quit Smoking? 16+yearssinc elastcigaret te Information not available 08/12/2023 Alcohol Use 1-2 Per Day [email or web address] Informatio n not available 10/20/2014 Do You [...] Smoking Tobacco? 18 Information not available 08/12/2023 How Many Years Have You Smoked Tobacco? 10 Information not available 08/12/2023 Sex: Female Functional Status Question Answer Note LastModified by Organizat ion Details LastModified Time How many times per week do you consume alcohol? 5-7 times per week Information not available 08/12/2023 Do you use any illicit or recreational drugs? No Information not available 08/12/2023 Do you or have you ever used any other forms of tobacco or nicotine? No Information not available 08/12/2023 What is your level of alcohol consumption? Occasional Information not available 08/12/2023 What is your exercise level? Occasional [email or web address] Information not available 10/20/2014 Mental Status None [...] available 2014 16:16:35 Medical History Condition Response Other Y Depression Y Headaches/Migraines Y Arthritis Y High blood pressure Y Gallbladder disease Y Alcohol Overuse Y Back pain Y Chicken Pox Y Thyroid Disease Y High Cholesterol Y Falls Y Colon Polyps Y Anxiety/Stress Y GERD/Ulcer Y Gynecological HistoryNo gynecological history recorded. Obstetrics History GPAL:G 0 P 0 0 0 0 Past Encounters Encounter ID Performer Location Encounter Start Date Encounter Closed Date Diagnosis/Indication Diagnosis SNOMED-CT Code Diagnosis ICD10 Code Diagnosis Note [id number] Ann-Marie Kline MD [facility] [address] [place] [address] 10/20/2014 11:13:19 10/20/2014 12:30:35 Fatigue 61916896 R/O hypothyroi dism. Abnormal weight gain 673659597 Will r/o Acromegaly and Inessa's Macrocytosis 117486648 W e will R/O Vit. B12 def. Tremor 25295201 Most likely Familiar Tremor, however she will discuss with Dr. Hinojosa. [id number] Ann-Marie Kline MD [facility] [address] [place] [address] 11/10/2014 15:13:32 11/10/2014 16:00:58 Fatigue 98115529 most likely due to stress, we have ruled out Thyroid disease. Bronchitis 35855391 Coug h does not allow her to sleep. She will take a cough syrup Pure hypercholesterolemia 424444111 On simvastati n. Obesity 442056430 With a BMI of 38.4. We will try Contrave if it is OK with Dr Hinojosa. Benign ess ential hypertension 1226276 Under control. [id number] TAMIKO SRIVASTAVA APRN [facility] [id number] [facility] [place] [address] 08/12/2023 15:42:44 08/13/2023 14:42:40 Obstructive sleep apnea syndrome 01330991 G47.33 History of ANUSHA, non compliant on [...] in case. Bacteremia caused by Gram-negative bacteria 5326918868 08 A41.50 Klebsiella pneumonia bacteremia from community- acquired pneumonia, treated with cefepime while inpatient. Blood cultures were negative at discharge. Discharged home on cefpodoxim e for another 7 days. Pneumonia 577049202 J18. 9 CAP treated with cefepime while inpatient. At discharge blood cultures were clean. Discharged home on cefpodoxim e for another 7 days. 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 Yap, cardiology Detailed discussion had regarding need to monitor her salt and fluid intake [id number] TAMIKO SRIVASTAVA APRN [place] [place] [id number] [facility],[address] [address] 09/30/2023 13:23:06 10/11/2023 17:05:15 Obstructive sleep apnea syndrome 43480258 G47.33 Moderate ANUSHA with AHI 20.5 on PSG in 2017 with a REM AHI of 40 Plan:-Comp liance reviewed. She demonstrat es excellent compliance , good tolerance and is benefiting from its use-Contin ue BiPAP 16/12 cmH2O, easy breathe on-Fullfac e mask-Order sent to [facility] for new supplies-W ill also obtain overnight [...] or operating heavy machinery, if somnolent Dyspnea 053059733 R06.00 Likely secondary to diastolic heart failure, obesity and deconditio chuck Plan:-Cont inue oxygen at 2L/NC as needed to keep SpO2 90% or greater-Ar range for pulmonary function testing now her pneumonia is resolved.- Continue with Lasix, managed by Dr. Yap, cardiology -We again reviewed importance of monitoring her salt and fluid intake-Haim l check RAST and CBC Bacteremia caused by Gram-negative bacteria 4457525838 08 A41.50 RESOLVED:K lebsiella pneumonia bacteremia from community- acquired pneumonia, treated with cefepime while inpatient. Blood cultures were negative at discharge. Discharged home on cefpodoxim e for another 7 days. Pneumonia 816649961 J18. 9 RESOLVED:- CAP treated with cefepime while inpatient. At discharge blood cultures were clean. Discharged home on cefpodoxim e for another 7 days. -Follow-up CT of the chest at [facility] on 09/12/2023 showed resolution of previously noted infiltrate s with minimal left lower lobe atelectasi s and no other acute findings. Morbid obesity 379003954 E66.01 Recommend to increase physical activity, weight loss and avoid further weight gain Magyg thyroiditis 21 519374 E06.3 Chronic, stable Managed by primary care [id number] Lc Greco MD [address] [address] 11/26/2023 11:26:40 11/26/2023 16:53:01 Obstructive sleep apnea syndrome 88227962 G47.33 Chronic and stable Moderate ANUSHA with AHI 20.5 on PSG in 2017 with a REM AHI of 40 Most recent download with 90% total compliance 40% for compliance Usage is 3 hours and 29 minutes She is on BiPAP 08/03 AHI is 2.2 and leak is at 48.4 L/min Dyspnea 644884062 R06.00 Chronic stable Has shortness of breath secondary to obesity and deconditio chuck and history of diastolic heart failure She has oxygen that she uses as needed No evidence of airflow obstructio n noted on the PFT yesterday Pneumonia 746363205 J18. 9 Chronic and stable I reviewed her CT from August which showed resolution of the infiltrate s Morbid obesity 042290562 E66.01 Chronic stable Continue with weight loss She likely has concomitan t obesity hypoventil ation syndrome Maggy thyroiditis 21 976305 E06.3 Chronic and stable She is on levothyrox ine 25 mcg daily Essential hypertension 76809070 I10 Chronic and stable She is on carvedilol 6.25 mg twice a day, losartan 50 mg daily Gastroesop hageal reflux disease without esophagitis 061130853 K21.9 Chronic and stable She is on pantoprazo le 40 mg daily Hyperlipidemia 54010562 E78.5 Chronic and stable She is on rosuvastat in 40 mg daily Health Concerns Section Related Observation LastModified by Organization Detai ls LastModified Time None Recorded Concern Status LastModified by Organization Details LastModified Time None Recorded Advance Directives Directive None Recorded Payers Insurance Date Sequence Insurance Name Policy Number Policy Schilling Covered Member ID Schilling Member ID Guarantor Name 11/26/2023 2 [facility] - PLAN F (MEDICARE SUPPLEMENT) Silvana Hare [id number] Silvana Hare 11/26/2023 1 [place] Silvana Hare [id number] Silvana Hare Notes Date Note Type Note [...] hypernatremia and mild Macrocytosis. Ann-Marie Kline MD [address], [place], [address], [employer] 10/20/2014 12:51:12 5 text/html Patient comes for f/u of HTN, Hypercholesteronemia, Hypothyroidism, Osteoporosis, patient is not feeling well: she feels tired ,can not walk more than 2 blocks, she had a heart ev and it was negative; weight is stable, we discuss the lab tests: IGF-1 129, TFT: WNL Vit B12 was: 715 Patient brings records of BS: Ann-Marie Kline MD [address], [place], [address], [employer] 11/10/2014 16:16:57 4 text/html She is here for hospital follow-up and management of sleep apnea, accompanied by her husbandShe was recently hospitalized at [facility] with acute pulmonary edema in the [...] of vivid dreamsDenies restless legs TAMIKO SRIVASTAVA, AIR CHIPPER [address] [address], [place], [address], [facility], [facility] 08/12/2023 16:53:28 4 text/html She is here [...] painDenies nasal congestion or PND Hospitalized at [facility] in June with acute pulmonary edema/diastolic [...] years up until her hospital discharge in JuneShjaja goes to bed at 11 pm, falls asleep in minutes, takes 1.5mg of melatoninHas nighttime awakenings 1-2x to use bathroomShe wakes at 10 amFeels mostly refreshed upon wakingHer daytime fatigue and sleepiness is betterShe is not taking naps daily like she previously wasOccasional snoring with BiPAP on 30-day compliance reviewed: date ending 09/29/2426/ days used40% 4 hour useResidual AHI: 2.295th percentile leak of 48.4 TAMIKO SRIVASTAVA, AIR CHIPPER [address], [place], [address], [facility] [employer] [facility], [employer] 09/30/2023 14:46:25 4 text/html This visit was [...] given verbal consent to telehealth visit. Use Indigoz on the [employer] iPhone as patient was unable to come into [...] up-to-date with her vaccinations Lc Greco MD [address], [place], [address], [facility], [employer] 11/26/2023 12:16:16 OBGyn Episode No OBEpisode recorded.
[2024-08-03 11:00] VITALS: BP 124/77; PULSE 73; RESP 14; TEMP 36.2; O2SAT 94
--- NOTE | 2024-08-03 12:09 | PM.IMHP ---
H&P: HPI History of Present Illness Date/Time: 08/03/24 12:09 Chief Complaint: Hematuria Narrative: 83 yr old female with history of hematuria. Cysto revealed a vascular area on the right posterior wall. Here for cysto with biopsy and fulguration Review of Systems Review of Systems: All systems reviewed & are unremarkable except as noted in HPI and below PMFSH Past Medical History Medical History Hypertension Hypothyroidism Essential tremor Social History Social History Smoking packs per day: 0.5 Smoking cigarettes per day: 10.0 Years smoked: 4 Smoking pack-years: 2.00 Smoking status: Never smoker Tobacco type: cigarettes Smoking end date: 03/24/74 Alcohol intake: current Drinks per week: 7 Alcohol use details: WINE Living arrangements: with family Spiritual care concerns: No Meds Home Medications and Allergies Home Medications ?Medication ?Instructions ?Recorded ?Confirmed ?Type aspirin 81 mg capsule 81 mg PO DAILY 07/01/24 08/03/24 History carvedilol 6.25 mg tablet 6.25 mg PO Q12H 07/01/24 08/03/24 History losartan 50 mg tablet 50 mg PO DAILY 07/01/24 07/13/24 History melatonin 3 mg capsule 3 mg PO HS 07/01/24 07/13/24 History paroxetine HCl 30 mg tablet 30 mg PO DAILY 07/01/24 08/03/24 History primidone 250 mg tablet 250 mg PO HS 07/01/24 07/13/24 History rosuvastatin 40 mg tablet 40 mg PO HS 07/01/24 07/13/24 History vitamin B complex 1 cap PO DAILY 07/01/24 07/13/24 History vitamin D3 125 mcg (5,000 1 cap PO DAILY 07/01/24 07/13/24 History unit)-vitamin K2 100 mcg capsule lamotrigine 100 mg tablet See Rx Instructions .Route 07/20/24 08/03/24 Rx .COMPLEX #180 tabs Allergies Allergy/AdvReac Type Severity Reaction Status Date / Time No Known Allergies Allergy Verified 08/03/24 11:05 Vital Signs Vital Signs - 24 hr 08/03/24 11:00 Temperature 36.2 C L Pulse Rate 73 Respiratory Rate 14 Blood Pressure 124/77 Pulse Oximetry 94 Oxygen Delivery Room Air Exam Const: General: cooperative and comfortable Resp: Effort & Inspection: normal respiratory effort Cardio: Rate: regular rate Rhythm: regular rhythm Assessment and Plan Assessment and plan (1) Hematuria: Code(s): R31.9 - Hematuria, unspecified Status: Acute Assessment and Plan: Proceed with cystoscopy with bladder biopsy and fulguration
--- NOTE | 2024-08-03 12:12 | WPDHPUPDATE1 ---
History and Physical Update Update Date/Time: 08/03/24 12:12 History and Physical has been reviewed, including an updated exam of the patient. There are NO changes in the patient's condition. Risks, benefits, and alternatives have been discussed and questions answered. Patient agrees to proceed with procedure.
[2024-08-03] MEDS: ceFAZolin 2 GM/D5W 50 ML 2 GM/50 ML BAG IVPB (12:30)
[2024-08-03] MEDS: LIDOCAINE 2% GEL UROJET 10 ML PKG MUCOUS MEM (12:48)
[2024-08-03 12:55] VITALS: BP 157/94; PULSE 85; RESP 16; TEMP 36.1; O2SAT 98
[2024-08-03] MEDS: LACTATED RINGERS 1,000 ML 30 ML IV CONT (12:55)
--- NOTE | 2024-08-03 12:57 | W.PM.PROC2 ---
Procedure Note - Detailed Date of Procedure 08/03/24 Pre-op Diagnosis Gross Hematuria Post-op Diagnosis Same Procedure Performed Cystoscopy, bladder biopsy with fulguration Surgeon Adryan Ann MD Anesthesia General Description of Procedure Patient was taken the operative suite correctly identified. Once anesthesia was obtained she was placed in dorsal lithotomy position and prepped and draped usual sterile fashion. Twenty-two English scope was inserted into the urethra. There are no discrete bladder tumors noted. The area in question was not as prominent today. I did go and biopsy this area and sent it for specimen. The base was fulgurated. No other lesions were noted at this time. 2% viscous lidocaine was inserted into the urethra and patient is taken recovery stable condition. This completes dictation. Please send a copy of op note to my office Estimated Blood Loss 0 Drains No Packing No Pathology Yes Complications No immediate complications Condition Stable Disposition PACU
[2024-08-03 13:10] VITALS: BP 153/99; PULSE 70; RESP 15; O2SAT 92
[2024-08-03 13:22] VITALS: BP 154/80; PULSE 66; RESP 21; O2SAT 91
[2024-08-03 13:37] VITALS: BP 113/76; PULSE 71; RESP 17; O2SAT 92
[2024-08-03 14:07] VITALS: BP 155/77; PULSE 69; RESP 16
== END 2024-08-03 14:24 | disposition home or self-care (01) ==
PROVIDERS: PCP Family Medicine; Visit Provider Urology
PROC: 0TBB8ZX Excision of Bladder, Via Natural or Artificial Opening Endoscopic, Diagnostic (ICD-10-PCS; CPT 52204; principal; 2024-08-03 12:00)
DX: N30.21 Other chronic cystitis with hematuria (principal); Z87.891 Personal history of nicotine dependence
CPT/HCPCS: 52204; 88305; J0690; J2003; J2704; J7120

== ENCOUNTER 2024-12-14 13:45 | Outpatient (CLI) | payer MEDICARE, SELFPAY ==
--- OUTSIDE RECORDS SUMMARY | 2023-10-21 19:00 | XMS_ITS | Continuity of Care Document ---
Author Organization [facility] Address [address] [facility] [place] [address] Phone Care Team Providers Care Dental Hygiene Professor Name Role Phone Bal LEO, John Juan Unavailable Unavaila ble Allergies, Adverse Reactions, Alerts Substance Reaction Status Criticality ciprofloxacin Active No Information No Known Drug Allergies Active No I nformation Advance Directives Directive Yes / No Effective Date File Name No Information Encounters Encounter Description Practice Location Reason(s) For Visit Diagnoses Date Provider Providers Copied on Encounter [facility], [facility] [place], [place], [id number] , [place] tel:[phone] Marana Piper QES Vitreous degeneration, bilateralDry eye syndrome of bilateral lacrimal glands 4 Bal Martinez. [address] [place], [place], [id number] , [place]. tel: [phone] [facility], [facility] [place], [place], [id number] , [place] tel: [phone] Marana Piper QES Other chronic allergic conjunctivitisMacula scars of posterior pole (postinflammatory) (post-traumatic), right eyeDry eye syndrome of bilateral lacrimal glands 4 Seth AGUERO PHD Jairon. [address], [place], [place], [id number] , [place]. tel: [phone] [facility], [facility] [place], [place], [id number] , [place] tel: [phone] Mike Piper QES Dry eye syndrome of bilateral lacrimal glandsMyopia, bilateralOther vitreous opacities, bilateralPrediabetesP resbyopiaRegular astigmatism, bilateral 3 [facility] [place], [address], [place]. tel: [phone] [facility], [address] [place] [address], [id number] , [place] tel: [phone] Mike JOSEPH Dry eye syndrome of bilateral lacrimal glandsType 2 diabetes mellitus without complications 2 [facility] [address] [place], [address], [place]. tel: [phone] [facility], [address] [place] [address], [id number] , [place] tel: [phone] [facility] Dry eye syndrome of bilateral lacrimal glandsType 2 diabetes mellitus without complicationsBenign neoplasm of meninges, unspecifiedOther secondary cataract, right eyeOther specified postprocedural statesPresence of intraocular lensSquamous blepharitis right eye, upper and lower eyelidsVitreous degeneration, bilateralSquamous blepharitis left eye, upper and lower eyelids Fe 1 [employer] . [address] [place] [address], [address], [place]. tel: [phone] [facility], [address] [place] [address], [id number] , [place] tel: [phone] [facility] Benign neoplasm of meninges, unspecifiedOther specified postprocedural statesType 2 diabetes mellitus without complicationsSquamous blepharitis right eye, upper and lower eyelidsVitreous degeneration, bilateralPresence of intraocular lensSquamous blepharitis left eye, upper and lower eyelidsDry eye syndrome of bilateral lacrimal glandsOther secondary cataract, right eye 0 [employer] . [address] [place] [address], [address], [place]. tel: [phone] [facility], [address] [place] [address], [id number] , [place] tel: [phone] [facility] Presence of intraocular lensVitreous degeneration, bilateralBenign neoplasm of meninges, unspecifiedOther specified postprocedural statesOther secondary cataract, right eyeType 2 diabetes mellitus without complicationsOther secondary cataract, bilateralDry eye syndrome of bilateral lacrimal glands 9 [employer] . [address] [place], [address], [place]. tel: [phone] [facility], [address] [place] [address], [id number] , [place] tel: [phone] [facility] Vitreous degeneration, bilateralType 2 diabetes mellitus without complicationsOther specified postprocedural statesOther secondary cataract, bilateralBenign neoplasm of meninges, unspecifiedDry eye syndrome of bilateral lacrimal glandsRegular astigmatism, left eyeSecondary noninfectious iridocyclitis, bilateralPresence of intraocular lens 9 [employer] . [address] [place] [address], [address], [place]. tel: [phone] [facility], [address] [place] [address], [id number] , [place] tel: [phone] [facility] Dry eye syndrome of bilateral lacrimal glandsPresence of intraocular lensVitreous degeneration, bilateralType 2 diabetes mellitus without complicationsBenign neoplasm of meninges, unspecifiedSecondary noninfectious iridocyclitis, bilateralRegular astigmatism, left eyeOther specified postprocedural states 9 [employer] . [address] [place] [address], [id number], [place]. tel: [phone] [facility], [address] [place] [address], [id number] , [place] tel: [phone] [facility] Type 2 diabetes mellitus without complicationsBenign neoplasm of meninges, unspecifiedPresence of intraocular lensDry eye syndrome of bilateral lacrimal glandsRegular astigmatism, left eyeSecondary noninfectious iridocyclitis, bilateralOther specified postprocedural statesVitreous degeneration, bilateral 9 [employer] . [address] [place] [address], [address], [place]. tel: [phone] [facility] [place], [id number] , [place] tel: [phone] [facility] Regular astigmatism, left eyeBenign neoplasm of meninges, unspecifiedPresence of intraocular lensOther specified postprocedural statesDry eye syndrome of bilateral lacrimal glandsType 2 diabetes mellitus without complicationsVitreous degeneration, bilateral Apr-2 6-201 9 [employer] . [address] [place] [address], [address], [place]. tel: [phone] [facility], [address] [place] [address], [id number] , [place] tel: [phone] [facility] Dry eye syndrome of bilateral lacrimal glandsAge-related nuclear cataract, left eyeOther specified postprocedural statesPresence of intraocular lensRegular astigmatism, left eyeVitreous degeneration, bilateralType 2 diabetes mellitus without complicationsBenign neoplasm of meninges, unspecified Apr-1 8-201 9 [employer] . [address] [place] [address], [address], [place]. tel: [phone] [facility], Che[address] [place], [id number] , [place] tel: [phone] [facility] Presence of intraocular lensRegular astigmatism, bilateralType 2 diabetes mellitus without complicationsOther specified postprocedural statesDry eye syndrome of bilateral lacrimal glandsAge-related nuclear cataract, left eyeBenign neoplasm of meninges, unspecifiedRegular astigmatism, left eyeVitreous degeneration, bilateral Apr-1 2-201 9 [employer] . [address] [place] [address], [address], [place]. tel: [phone] [facility], [address] [place], [place] [address]jaja [place], [id number] , [place] tel: [phone] [facility] Regular astigmatism, bilateralAge-related nuclear cataract, left eyeOther specified postprocedural statesBenign neoplasm of meninges, unspecifiedVitreous degeneration, bilateralType 2 diabetes mellitus without complicationsPresence of intraocular lensAge-related nuclear cataract, bilateral Apr-0 4-201 9 [employer] . [address] [place], [address], [place]. tel:[phone] [facility], [address], [place], [place], [id number] , [place] tel:[phone] [facility] Regular astigmatism, bilateralType 2 diabetes mellitus without complicationsOther specified postprocedural statesAge-related nuclear cataract, bilateralBenign neoplasm of meninges, unspecifiedVitreous degeneration, bilateral May- 5-201 9 [employer] . [address] [place], [address], [place]. tel:[phone] [facility], [address], [place], [place], [id number] , [place] tel:[phone] [facility] Benign neoplasm of meninges, unspecifiedVitreous degeneration, bilateralOther specified postprocedural statesAge-related nuclear cataract, bilateralRegular astigmatism, bilateralType 2 diabetes mellitus without complications 0 7-201 8 [employer] . [address] [place], [address], [place]. tel:[phone] [facility], [address] [place], [place], [id number] , [place] tel:[phone] [facility] Type 2 diabetes mellitus without complicationsBenign neoplasm of meninges, unspecifiedOther specified postprocedural statesAge-related nuclear cataract, bilateralVitreous degeneration, bilateral 6-201 7 [employer] . [address] [place], [address], [place]. tel:[phone] [facility], [address] [place], [id number] , [place] tel:[phone] [facility] Vitreous degeneration, bilateral May- 6-201 6 [employer] . [address] [place], [address], [place]. tel:[phone] [facility], [address] [place], [place], [id number] , [place] tel:[phone] [facility] Dry eye syndrome of bilateral lacrimal glandsOther migraine, not intractable, without status migrainosusOther vitreous opacities, right eyeAge-related nuclear cataract, bilateralVitreous degeneration, bilateralBenign neoplasm of meninges, unspecifiedDermatocha lasis of unspecified eye, unspecified eyelid 201 5 [employer] . [address] [place] [address], [address], [place]. tel:[phone] [facility], [address] [place] [address], [id number] , [place] tel:[phone] [facility] Other vitreous opacities, right eyeAge-related nuclear cataract, bilateralOther migraine, not intractable, without status migrainosusDermatocha lasis of unspecified eye, unspecified eyelidDry eye syndrome of bilateral lacrimal glandsVitreous degeneration, right eye 5 [employer] . [address] [place] [address], [address], [place]. tel:[phone] [facility], [address] [place] [address], [id number] , [place] tel:[phone] [facility] Dermatochalasis of unspecified eye, unspecified eyelid 0 4-201 4 [employer] . [address] [place] [address], [address], [place]. tel:[phone] [facility], [address] [place] [address], [id number] , [place] tel:[phone] [facility] Blepharitis UnspecifiedDermatocha lasisDry Eye SyndromeCosmetic 0 7-201 4 [employer] . [address] [place] [address], [address], [place]. tel:[phone] [facility], [address] [place], [place] [address]jaja [place], [id number] , [place] tel:[phone] [facility] DermatochalasisVitreo us Detachment DegeneratCataract Nuclear ScleroticMigrane Ophthalmic 4 [employer] . [facility] [place], [address], [place]. tel:[phone] [facility], [address] [facility], [place], [place], [id number] , [place] tel:[phone] [facility] DermatochalasisBlepha ritis UnspecifiedCosmeticBl epharitis SquamousDry Eye Syndrome 4 [employer] . [facility], [address], [place]. tel:[phone] [facility], [address] [place], [id number] , [place] tel:[phone] [facility] Vitreous Detachment DegeneratAstigmatism UnspecCataract Nuclear ScleroticHyperopiaDer matochalasisBlepharit is SquamousOth Anterior Corneal DystrophyCataract IncipientVitreous degeneration, right eyeDry Eye Syndrome 4 [employer] . [facility], [address], [place]. tel:[phone] [facility], [address] [place], [place], [id number] , [place] tel:[phone] [facility] Cataract Nuclear ScleroticVitreous Detachment DegeneratMigrane Ophthalmic Dec- 2 [employer] . [address] [place] [address], [address], [place]. tel:[phone] [facility], Chet Brennan [place], [id number] , [place] tel: [phone] [facility] Vitreous Detachment DegeneratHyperopiaCat aract IncipientAstigmatism Unspec 2 [employer] . [address] [place] [address], [address], [place]. tel:[phone] Family History Family Member Type Diagnosis Age At Onset Natural sibling Problem (finding) Fhx of glaucoma Payers Payer name Insurance type Covered libertarian ID Authoriza tion(s) No Information Social History Type Description Quantity Date Captured Comments Alcohol Use Details Unknown Caffeine Use Details Unknown Tobacco Use Status Never smoker (Never Smoked) Smoking Status Never smoker (Never Smoked) Non-Smoking Tobacco Use Details : No Details Available : No Details Available Sex Female Chief Complaint And Reason For Visit No Information Reason For Referral Reason For Referral No Information History Of Present Illness Encounter Date Complaint History Of Prese nt Illness No Information Functional Status Date Functional Assessmen t No Information Instructions Date Instruction Additional Infor jacob Impression/Plan Related to [facility] [place] revealed a posterior vitreous detachment. Impression/Plan Related to [facility] [place] revealed dry eye syndrome secondary to tear deficiencies. Impression/Plan Related to [facility] [place] revealed macular scar. Impression/Plan Related to [facility] [place] revealed dry eye syndrome secondary to tear deficiencies. Impression/Plan Related to [facility] [place] revealed allergic conjunctivitis. The patient has seasonal allergic conjunctivitis and will try an OTC allergy relief drop such as Pataday or Lastacaft QD oysterman. In more symptomatic cases topical steroids may be considered. Pt also sug Impression/Plan Related to Refra ctive testing reveals presbyopia. Impression/Plan Related to [facility] [place] revealed dry eye syndrome secondary to tear deficiencies. Impression/Plan Related to [facility] [place] revealed vitreous floaters. The nature of vitreous floaters was discussed with the patient. The floaters may be apparent most often while reading and in bright light. Also as the gel (vitreous) shrinks it can tug on the retina causing the p Impression/Plan Related to Ophth almic examination at this time shows no evidence of diabetic eye disease. I have discussed the importance of regular follow-up examinations for the early detection of diabetic retinopathy to prevent vision loss. I have recommended re-evaluation in o Impression/Plan Related to Refra ctive testing reveals astigmatism. Impression/Plan Related to Refra ctive testing reveals myopia (nearsightedness). Impression/Plan Related to Diagn osis Description: Controlled diabetes mellitus type II without complication \nDiagnosis Code: 250.00 Impression/Plan Related to [place] revealed dry eye syndrome secondary to tear deficiencies. Impression/Plan Related to Diagn osis Description: Dry eye syndrome of both lacrimal glands \nDiagnosis Code: 375.15 Impression/Plan Related to Diagn osis Description: Posterior vitreous detachment of both eyes \nDiagnosis Code: 379.21 Impression/Plan Related to Diagn osis Description: MGM (meningioma) \nDiagnosis Code: 225.2 Impression/Plan Related to Diagn osis Description: Controlled diabetes mellitus type II without complication \nDiagnosis Code: 250.00 Impression/Plan Related to Diagn osis Description: S/P LASIK surgery of both eyes \nDiagnosis Code: V45.69 Impression/Plan Related to Diagn osis Description: POSTERIOR CAPSULAR OPACIFICATION VISUALLY SIGNIFICANT OF RIGHT EYE \nDiagnosis Code: 366.53 Impression/Plan Related to Diagn osis Description: Bilateral pseudophakia \nDiagnosis Code: V43.1 Impression/Plan Related to Diagn osis Description: Squamous blepharitis left eye, upper and lower eyelids \nDiagnosis Code: 373.02 Impression/Plan Related to Diagn osis Description: Squamous blepharitis right eye, upper and lower eyelids \nDiagnosis Code: 373.02 Impression/Plan Related to Diagn osis Description: Posterior vitreous detachment of both eyes \nDiagnosis Code: 379.21 Impression/Plan Related to Diagn osis Description: Controlled diabetes mellitus type II without complication \nDiagnosis Code: 250.00 Impression/Plan Related to Diagn osis Description: MGM (meningioma) \nDiagnosis Code: 225.2 Impression/Plan Related to Diagn osis Description: S/P LASIK surgery of both eyes \nDiagnosis Code: V45.69 Impression/Plan Related to Diagn osis Description: POSTERIOR CAPSULAR OPACIFICATION VISUALLY SIGNIFICANT OF RIGHT EYE \nDiagnosis Code: 366.53 Impression/Plan Related to Diagn osis Description: Bilateral pseudophakia \nDiagnosis Code: V43.1 Impression/Plan Related to Diagn osis Description: Squamous blepharitis left eye, upper and lower eyelids \nDiagnosis Code: 373.02 Impression/Plan Related to Diagn osis Description: Squamous blepharitis right eye, upper and lower eyelids \nDiagnosis Code: 373.02 Impression/Plan Related to Diagn osis Description: Dry eye syndrome of both lacrimal glands \nDiagnosis Code: 375.15 Impression/Plan Related to Diagn osis Description: Posterior vitreous detachment of both eyes \nDiagnosis Code: 379.21 Impression/Plan Related to Diagn osis Description: Controlled diabetes mellitus type II without complication \nDiagnosis Code: 250.00 Impression/Plan Related to Diagn osis Description: MGM (meningioma) \nDiagnosis Code: 225.2 Impression/Plan Related to Diagn osis Description: S/P LASIK surgery of both eyes \nDiagnosis Code: V45.69 Impression/Plan Related to Diagn osis Description: Dry eye syndrome of both lacrimal glands \nDiagnosis Code: 375.15 Impression/Plan Related to Diagn osis Description: POSTERIOR CAPSULAR OPACIFICATION VISUALLY SIGNIFICANT OF RIGHT EYE \nDiagnosis Code: 366.53 Impression/Plan Related to Diagn osis Description: Bilateral pseudophakia \nDiagnosis Code: V43.1 Impression/Plan Related to Diagn osis Description: POSTERIOR CAPSULAR OPACIFICATION VISUALLY SIGNIFICANT OF BOTH EYES \nDiagnosis Code: 366.53 Impression/Plan Related to Diagn osis Description: Posterior vitreous detachment of both eyes \nDiagnosis Code: 379.21 Impression/Plan Related to Diagn osis Description: Controlled diabetes mellitus type II without complication \nDiagnosis Code: 250.00 Impression/Plan Related to Diagn osis Description: MGM (meningioma) \nDiagnosis Code: 225.2 Impression/Plan Related to Diagn osis Description: S/P LASIK surgery of both eyes \nDiagnosis Code: V45.69 Impression/Plan Related to Diagn osis Description: Regular astigmatism of left eye \nDiagnosis Code: 367.21 Impression/Plan Related to Diagn osis Description: Bilateral pseudophakia \nDiagnosis Code: V43.1 Impression/Plan Related to Diagn osis Description: POSTERIOR CAPSULAR OPACIFICATION VISUALLY SIGNIFICANT OF BOTH EYES \nDiagnosis Code: 366.53 Impression/Plan Related to Diagn osis Description: Secondary iritis of both eyes \nDiagnosis Code: 364.04 Impression/Plan Related to Diagn osis Description: Dry eye syndrome of both lacrimal glands \nDiagnosis Code: 375.15 Impression/Plan Related to Diagn osis Description: Posterior vitreous detachment of both eyes \nDiagnosis Code: 379.21 Impression/Plan Related to Diagn osis Description: Controlled diabetes mellitus type II without complication \nDiagnosis Code: 250.00 Impression/Plan Related to Diagn osis Description: MGM (meningioma) \nDiagnosis Code: 225.2 Impression/Plan Related to Diagn osis Description: S/P LASIK surgery of both eyes \nDiagnosis Code: V45.69 Impression/Plan Related to Diagn osis Description: Regular astigmatism of left eye \nDiagnosis Code: 367.21 Impression/Plan Related to Diagn osis Description: Dry eye syndrome of both lacrimal glands \nDiagnosis Code: 375.15 Impression/Plan Related to Diagn osis Description: Secondary iritis of both eyes \nDiagnosis Code: 364.04 Impression/Plan Related to Diagn osis Description: Bilateral pseudophakia \nDiagnosis Code: V43.1 Impression/Plan Related to Diagn osis Description: Bilateral pseudophakia \nDiagnosis Code: V43.1 Impression/Plan Related to Diagn osis Description: Secondary iritis of both eyes \nDiagnosis Code: 364.04 Impression/Plan Related to Diagn osis Description: Posterior vitreous detachment of both eyes \nDiagnosis Code: 379.21 Impression/Plan Related to Diagn osis Description: Controlled diabetes mellitus type II without complication \nDiagnosis Code: 250.00 Impression/Plan Related to Diagn osis Description: MGM (meningioma) \nDiagnosis Code: 225.2 Impression/Plan Related to Diagn osis Description: S/P LASIK surgery of both eyes \nDiagnosis Code: V45.69 Impression/Plan Related to Diagn osis Description: Regular astigmatism of left eye \nDiagnosis Code: 367.21 Impression/Plan Related to Diagn osis Description: Dry eye syndrome of both lacrimal glands \nDiagnosis Code: 375.15 Impression/Plan Related to Diagn osis Description: Posterior vitreous detachment of both eyes \nDiagnosis Code: 379.21 Impression/Plan Related to Diagn osis Description: Controlled diabetes mellitus type II without complication \nDiagnosis Code: 250.00 Impression/Plan Related to Diagn osis Description: MGM (meningioma) \nDiagnosis Code: 225.2 Impression/Plan Related to Diagn osis Description: S/P LASIK surgery of both eyes \nDiagnosis Code: V45.69 Impression/Plan Related to Diagn osis Description: Regular astigmatism of left eye \nDiagnosis Code: 367.21 Impression/Plan Related to Diagn osis Description: Dry eye syndrome of both lacrimal glands \nDiagnosis Code: 375.15 Impression/Plan Related to Diagn osis Description: Bilateral pseudophakia \nDiagnosis Code: V43.1 Impression/Plan Related to Diagn osis Description: MGM (meningioma) \nDiagnosis Code: 225.2 Impression/Plan Related to Diagn osis Description: S/P LASIK surgery of both eyes \nDiagnosis Code: V45.69 Impression/Plan Related to Diagn osis Description: Dry eye syndrome of both lacrimal glands \nDiagnosis Code: 375.15 Impression/Plan Related to Diagn osis Description: Regular astigmatism of left eye \nDiagnosis Code: 367.21 Impression/Plan Related to Diagn osis Description: Age-related nuclear cataract of left eye \nDiagnosis Code: 366.16 Impression/Plan Related to Diagn osis Description: Pseudophakia of right eye \nDiagnosis Code: V43.1 Impression/Plan Related to Diagn osis Description: Posterior vitreous detachment of both eyes \nDiagnosis Code: 379.21 Impression/Plan Related to Diagn osis Description: Controlled diabetes mellitus type II without complication \nDiagnosis Code: 250.00 Impression/Plan Related to Diagn osis Description: S/P LASIK surgery of both eyes \nDiagnosis Code: V45.69 Impression/Plan Related to Diagn osis Description: Dry eye syndrome of both lacrimal glands \nDiagnosis Code: 375.15 Impression/Plan Related to Diagn osis Description: Regular astigmatism of left eye \nDiagnosis Code: 367.21 Impression/Plan Related to Diagn osis Description: Age-related nuclear cataract of left eye \nDiagnosis Code: 366.16 Impression/Plan Related to Diagn osis Description: Regular astigmatism of both eyes \nDiagnosis Code: 367.21 Impression/Plan Related to Diagn osis Description: Pseudophakia of right eye \nDiagnosis Code: V43.1 Impression/Plan Related to Diagn osis Description: Posterior vitreous detachment of both eyes \nDiagnosis Code: 379.21 Impression/Plan Related to Diagn osis Description: Controlled diabetes mellitus type II without complication \nDiagnosis Code: 250.00 Impression/Plan Related to Diagn osis Description: MGM (meningioma) \nDiagnosis Code: 225.2 Impression/Plan Related to Diagn osis Description: Age-related nuclear cataract of left eye \nDiagnosis Code: 366.16 Impression/Plan Related to Diagn osis Description: Posterior vitreous detachment of both eyes \nDiagnosis Code: 379.21 Impression/Plan Related to Diagn osis Description: Controlled diabetes mellitus type II without complication \nDiagnosis Code: 250.00 Impression/Plan Related to Diagn osis Description: MGM (meningioma) \nDiagnosis Code: 225.2 Impression/Plan Related to Diagn osis Description: S/P LASIK surgery of both eyes \nDiagnosis Code: V45.69 Impression/Plan Related to Diagn osis Description: Regular astigmatism of both eyes \nDiagnosis Code: 367.21 Impression/Plan Related to Diagn osis Description: Pseudophakia of right eye \nDiagnosis Code: V43.1 Impression/Plan Related to Diagn osis Description: Age-related nuclear cataract of both eyes \nDiagnosis Code: 366.16 Impression/Plan Related to Diagn osis Description: Posterior vitreous detachment of both eyes \nDiagnosis Code: 379.21 Impression/Plan Related to Diagn osis Description: Controlled diabetes mellitus type II without complication \nDiagnosis Code: 250.00 Impression/Plan Related to Diagn osis Description: MGM (meningioma) \nDiagnosis Code: 225.2 Impression/Plan Related to Diagn osis Description: S/P LASIK surgery of both eyes \nDiagnosis Code: V45.69 Impression/Plan Related to Diagn osis Description: Regular astigmatism of both eyes \nDiagnosis Code: 367.21 Impression/Plan Related to Diagn osis Description: Age-related nuclear cataract of both eyes \nDiagnosis Code: 366.16 Impression/Plan Related to Diagn osis Description: Controlled diabetes mellitus type II without complication \nDiagnosis Code: 250.00 Impression/Plan Related to Diagn osis Description: MGM (meningioma) \nDiagnosis Code: 225.2 Impression/Plan Related to Diagn osis Description: S/P LASIK surgery of both eyes \nDiagnosis Code: V45.69 Impression/Plan Related to Diagn osis Description: Regular astigmatism of both eyes \nDiagnosis Code: 367.21 Impression/Plan Related to Diagn osis Description: Age-related nuclear cataract of both eyes \nDiagnosis Code: 366.16 Impression/Plan Related to Diagn osis Description: Posterior vitreous detachment of both eyes \nDiagnosis Code: 379.21 Impression/Plan Related to Diagn osis Description: MGM (meningioma) \nDiagnosis Code: 225.2 Impression/Plan Related to Diagn osis Description: Posterior vitreous detachment of both eyes \nDiagnosis Code: 379.21 Impression/Plan Related to Diagn osis Description: Controlled diabetes mellitus type II without complication \nDiagnosis Code: 250.00 Impression/Plan Related to Diagn osis Description: S/P LASIK surgery of both eyes \nDiagnosis Code: V45.69 Impression/Plan Related to Diagn osis Description: Age-related nuclear cataract of both eyes \nDiagnosis Code: 366.16 Impression/Plan Related to Diagn osis Description: PVD (posterior vitreous detachment), both eyes \nDiagnosis Code: 379.21 Impression/Plan Related to Diagn osis Description: OTHER VITREOUS OPACITY OF RIGHT EYE \nDiagnosis Code: 379.24 Impression/Plan Related to Diagn osis Description: 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 \nDiagnosis Code: 375.15 Impression/Plan Related to Diagn osis Description: AGE-RELATED NUCLEAR CATARACT OF BOTH EYES \nDiagnosis Code: 366.16 Impression/Plan Related to Diagn osis Description: PVD (posterior vitreous detachment), both eyes \nDiagnosis Code: 379.21 Impression/Plan Related to Diagn osis Description: DERMATOCHALASIS \nDiagnosis Code: 374.87 Impression/Plan Related to Diagn osis Description: OTHER MIGRAINE WITHOUT STATUS MIGRAINOSUS, NOT INTRACTABLE \nDiagnosis Code: 346.80 Impression/Plan Related to Diagn osis Description: MGM (meningioma) \nDiagnosis Code: 225.2 Impression/Plan Related to Diagn osis Description: OTHER VITREOUS OPACITY OF RIGHT EYE \nDiagnosis Code: 379.24 Impression/Plan Related to Diagn osis Description: 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 \nDiagnosis Code: 375.15 Impression/Plan Related to Diagn osis Description: PVD, RIGHT EYE \nDiagnosis Code: 379.21 Impression/Plan Related to Diagn osis Description: OTHER MIGRAINE WITHOUT STATUS MIGRAINOSUS, NOT INTRACTABLE \nDiagnosis Code: 346.80 Impression/Plan Related to Diagn osis Description: DERMATOCHALASIS \nDiagnosis Code: 374.87 Impression/Plan Related to Diagn osis Description: AGE-RELATED NUCLEAR CATARACT OF BOTH EYES \nDiagnosis Code: 366.16 Impression/Plan Related to Diagn osis Description: DERMATOCHALASIS \nDiagnosis Code: 374.87 Impression/Plan Related to Diagn osis Description: INSUFFICIENCY, TEAR FILM NOS OU \nDiagnosis Code: 375.15 Impression/Plan Related to Diagn osis Description: BLEPHARITIS NOS OU \nDiagnosis Code: 373.00 Impression/Plan Related to Diagn osis Description: PLASTIC SURGERY NEC OU \nDiagnosis Code: v50.1 Impression/Plan Related to Diagn osis Description: DERMATOCHALASIS OU \nDiagnosis Code: 374.87 Impression/Plan Related to Diagn osis Description: DERMATOCHALASIS OU \nDiagnosis Code: 374.87 Impression/Plan Related to Diagn osis Description: CATARACT, SENILE NUCLEAR OU \nDiagnosis Code: 366.16 Impression/Plan Related to Diagn osis Description: DEGENERATION, VITREOUS BODY OD \nDiagnosis Code: 379.21 Impression/Plan Related to Diagn osis Description: MIGRAINE NEC W/O MGN W/O STATUS OU \nDiagnosis Code: 346.80 Impression/Plan Related to Diagn osis Description: DERMATOCHALASIS OU \nDiagnosis Code: 374.87 Impression/Plan Related to Diagn osis Description: BLEPHARITIS NOS OU \nDiagnosis Code: 373.00 Impression/Plan Related to Diagn osis Description: PLASTIC SURGERY NEC OU \nDiagnosis Code: v50.1 Impression/Plan Related to Diagn osis Description: INSUFFICIENCY, TEAR FILM NOS OU \nDiagnosis Code: 375.15 Impression/Plan Related to Diagn osis Description: BLEPHARITIS, SQUAMOUS OU \nDiagnosis Code: 373.02 Impression/Plan Related to Diagn osis Description: DERMATOCHALASIS OU \nDiagnosis Code: 374.87 Impression/Plan Related to Diagn osis Description: INSUFFICIENCY, TEAR FILM NOS OU \nDiagnosis Code: 375.15 Impression/Plan Related to Diagn osis Description: BLEPHARITIS, SQUAMOUS OU \nDiagnosis Code: 373.02 Impression/Plan Related to Diagn osis Description: PVD, RIGHT EYE \nDiagnosis Code: 379.21 Impression/Plan Related to Diagn osis Description: DEGENERATION, VITREOUS BODY OD \nDiagnosis Code: 379.21 Impression/Plan Related to Diagn osis Description: DYSTROPHY, ANTERIOR CORNEAL NEC OU \nDiagnosis Code: 371.52 Impression/Plan Related to Diagn osis Description: ASTIGMATISM NOS OU \nDiagnosis Code: 367.20 Impression/Plan Related to Diagn osis Description: HYPERMETROPIA OU \nDiagnosis Code: 367.0 Impression/Plan Related to Diagn osis Description: CATARACT, SENILE NUCLEAR OU \nDiagnosis Code: 366.16 Impression/Plan Related to Diagn osis Description: CATARACT, INCIPIENT OU \nDiagnosis Code: 366.12 Impression/Plan Related to Diagn osis Description: CATARACT, SENILE NUCLEAR OU \nDiagnosis Code: 366.16 Impression/Plan Related to Diagn osis Description: DEGENERATION, VITREOUS BODY OD \nDiagnosis Code: 379.21 Impression/Plan Related to Diagn osis Description: 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
--- OUTSIDE RECORDS SUMMARY | 2024-10-16 16:30 | XMS_ITS ---
Author Organization [facility] Address [address] [place] [address] Care Team Providers Care Stuffing Machine Operator Name Role Phone TatiAdriano garcia Unavailable doctorDr madrigal Unavailable Unavailable Migration, Provider Unavailable Unavailable REASON FOR VISIT [facility] Encounter Medications Medication SIG (Take, [...] a nd pick correct strength-formulatio n from [employer] options. If intended option is not shown, [...] Provider Diagnosis [facility] [address] [place] [address] 10/16/2024 Provider Migration Plan Of Treatment No Information Progress Notes * Silvana HAREDOB:1940 (84 yo F)Acc No.[id number]:10/16/2024 UNLOCKED PROGRESS NOTE Patient: Silvana CRONIN Provider: :1940 A ge:83 Y S ex:Female Date:10/16/2024 Address:[address] [place], [place] [phone] Subjective: * Chief Complaints: * 1 . [facility]. * Medical History: * Medications: [...] *Please review and pick correct strength-formulation from [facility] options. If intended option is not shown, [...] Electronic signature of Prov ider Migration on 12/14/2024 at 02:50 PM EDT Sign off status: Pending * Provider: Date: 10/16/2024 Generated for Mary zamora/Panchito/Chelo on: 12/14/2024 02:50 PM EDT
--- OUTSIDE RECORDS SUMMARY | 2024-12-14 13:50 | XMS_ITS | Patient Health Record ---
Author Organization [employer] Address [address] [place] [address] [place] [phone] Support Name Relationship Address Phone JAYJAY JACKSON Guarantor Unknown [phone] Allergies No Known Allergies Reason For Referral No Information Medications Medication SIG (Take, Route, Frequency, Duration) Notes Start Date End Date Status Losartan Potassium 25 MG 1 tablet Orally Once a day; Duration: 90 days Active PARoxetine HCl 30 MG 1 tablet in the mor chuck Orally Once a day; Duration: 90 days Active Xanax 0.5 MG 1 tablet every night Orally Once a day; Duration: 20 days 07/22/2020 Active Levothyroxine Sodium 25 MCG 1 TABLET IN THE MORNING ON AN EMPTY STOMACH ONCE A DAY ORALLY 90 DAYS; Duration: 90 Active Esomeprazole Magnesium 40 MG 1 capsule O rally Once a day; Duration: 90 days Active Furosemide 20 MG 1 tablet Orally 4 X weekly Active Simvastatin 20 MG 1 tablet in the even ing Orally Once a day Active Primidone 50 MG as directed Orally 1 in am 5 in PM Active lamoTRIgine 100 MG 1 tablet Orally Once a day Active Carvedilol 3.125 MG 1 tablet with food Orally daily Active Problems Problem Type SNOMED Code ICD Code Onset Dates Problem Status W/U Status Risk Notes Problem Hypothyroidism (88324847) Hypothyroidism, unspecified (E03.9) Active confirmed Problem Essential tremor (234313750) Essential tremor (G25.0) Active confirmed Problem Essential hypertension (62300656) Essential hypertension (I10) Active confirmed Problem Gastroesophageal reflux disease without esophagitis (131195819) Gastroesophageal reflux disease without esophagitis (K21.9) Active confirmed Problem Depressive disorder (disorder) (95208719) Depression, unspecified depression type (F32.9) Active confirmed Problem Insomnia disorder related to another mental disorder (79056814) Psychophysiological insomnia (F51.04) Active confirmed Problem Mixed hyperlipidemia (460427137) Hyperlipemia, mixed (E78.2) Active confirmed Plan Of Treatment Pending Test Test Name Order Date Chest X-ray PA and lateral 06/06/2020 Urinalysis, Complete 06/06/2020 Urine Culture and Sensitivity 06/06/2020 Insurance Providers Payer Name Payer Address Payer Phone Subscriber Number Group Number Insured Name Patient Relationship to Insured Coverage Start Date Coverage End Date [employer] of [place] [employer] [address] [address] [place] [address] [id number] JAYJAY JACKSON Self - patient is the insured [facility] Medicare Supplement [address] [place] [phone] [id number] JAYJAY JACKSON Self - patient is the insured Medical (General) History Medical History History ICD Code Hypertension Hyperlipidemia Hypothyroid Depression Surgical History Surgery Date(Month/Year) menningioma
--- OUTSIDE RECORDS SUMMARY | 2024-12-14 13:51 | XMS_ITS | Patient Health Record ---
Author Organization [facility] Address [address] [place] [address] Care Team Providers Care Escalator Mechanic Name Role Phone PetronaAdriano Unavailable [phone] doctor, Dr madrigal Unavailable Unavailable Migration, Provider Unavailable Unavailable Reason For Referral No Information [...] a nd pick correct strength-formulatio n from [employer] options. If intended option is not shown, discontinue and re-order from Quick Search* Active Levothyroxine Sodium 25 MCG 1 tab(s) orally once a day; Duration: 30 day(s) Active Esomeprazole Magnesium 40 MG 1 cap(s) orally once a day; Duration: 30 day(s) Active Furosemide 20 MG 1 tab(s) orally once a day; Duration: 30 day(s) Active Primidone 50 MG 1 tab(s) orally 3 times a day; Duration: 30 day(s) Active lamoTRIgine 100 MG 1 tab(s) orally 2 times a day; Duration: 30 day(s) Active Social History Tobacco Use: [...] Stiffness of joint of left foot (finding) (073738687356589) Stiffness of left foot, not elsewhere classified (M25.675) Active confirmed Problem Instability of joint of left foot (finding) (74773691222386109 ) Other instability, left foot (M25.375) Active confirmed Problem Enthesopathy of foot region (015765679) Other enthesopathy of left foot (M77.52) Active confirmed Problem Metatarsalgia of left foot (099775852162415) Metatarsalgia, left foot (M77.42) Active confirmed Problem Bilateral atherosclerosis of arteries of lower limbs (disorder) (17451625491045793 ) Unspecified atherosclerosis of sleetmute arteries of extremities, bilateral legs (I70.203) Active confirmed Problem Benign neoplasm of skin of lower limb (17427156) 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, 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) Active confirmed Problem Stiffness of joint of right foot (finding) (416161592842804) Stiffness of right foot, not elsewhere classified (M25.674) Active confirmed Problem Peripheral venous insufficiency (31606642) Venous insufficiency (chronic) (peripheral) (I87.2) Active confirmed Problem Pain in limb (14972935) Pain of left foot (M79.672) Active confirmed Problem Arthralgia of the ankle and/or foot (920531125) Pain in joint, ankle and foot, left (M25.572) Active confirmed Encounters Encounter Location Date Provider [facility] [address] [address] 10/16/2024 Provider Migration Plan Of Treatment Pending Test Test Name [...] Part B [address] [place] [address] [id number] Silvana Hare Self - patient is the insured 8 [employer] Supplement [address] [facility] [place] [address] [phone] [id number] Silvana Hare Self - patient is the [...] Surgical History Surgery Date(Month/Year) various elective sx 5826-5215 brain 2018 sinus surgery 2015 2 bunion sx 2009 Hospitalization History Reason Date(Month/Year) see above
== END 2024-12-14 13:46 | disposition home or self-care (01) ==
LOC: ANHAUDIO 13:46
PROVIDERS: PCP Family Medicine; Visit Provider Otolaryngology
DX: H90.6 Mixed conductive and sensorineural hearing loss, bilateral (principal); H93.11 Tinnitus, right ear
CPT/HCPCS: 92557; 92567

== ENCOUNTER 2025-02-11 01:42 | Day surgery (SDC) | payer MEDICARE, SELFPAY ==
--- OUTSIDE RECORDS SUMMARY | 2024-10-16 15:30 | XMS_ITS ---
Author Organization [facility] Address [address] [place] [address] Care Team Providers Care Academic Support Specialist Name Role Phone TatiAdriano garcia Unavailable doctorDr madrigal Unavailable Unavailable Migration, Provider Unavailable Unavailable REASON FOR VISIT [facility] Encounter Medications Medication SIG (Take, Route, Frequency, Duration) Notes Start Date End Date Status VIT D 500IU ORAL BID; Duration: 30 DAYS *Please review for potential replacement for e-prescription and drug interaction check* Active Losartan Potassium 25 MG 1 tab(s) orally once a day; Duration: 30 day(s) Active Simvastatin 20 MG 1 tab(s) orally once a day (at bedtime); Duration: 30 day(s) Active PARoxetine HCl 30 MG 1 tab(s) orally once a day; Duration: 30 day(s) Active Claritin 10 MG 1 tab(s) orally once a day Active Potassium 90MG 1 QD *Please review a nd pick correct strength-formulatio n from [employer] options. If intended option is not shown, discontinue and re-order from Quick Search* Active Levothyroxine Sodium 25 MCG 1 tab(s) orally once a day; Duration: 30 day(s) Active Esomeprazole Magnesium 40 MG 1 cap(s) orally once a day; Duration: 30 day(s) Active Furosemide 20 MG 1 tab(s) orally once a day; Duration: 30 day(s) Active lamoTRIgine 100 MG 1 tab(s) orally 2 times a day; Duration: 30 day(s) Active Primidone 50 MG 1 tab(s) orally 3 times a day; Duration: 30 day(s) Active Encounters Encounter Location Date Provider Diagnosis [facility] [address] [place] [address] 10/16/2024 Provider Migration Plan Of Treatment No Information Progress Notes * Silvana HAREDOB:1940 (84 yo F)Acc No.[id number]:10/16/2024 UNLOCKED PROGRESS NOTE Patient: Silvana CRONIN Provider: :1940 A ge:83 Y S ex:Female Date:10/16/2024 Address:[address] [place], [place] [id number] Subjective: * Chief Complaints: * 1 . Multum To [facility] Conversion Encounter. * Medical History: * Medications: T aking Primidone 50 MG Tablet 1 tab(s) orally 3 times a day , Taking lamoTRIgine 100 MG Tablet 1 tab(s) orally 2 times a day , Taking Esomeprazole Magnesium 40 MG Capsule Delayed Release 1 cap(s) orally once a day , Taking Furosemide 20 MG Tablet 1 tab(s) orally once a day , Taking Potassium 90MG 1 QD , Notes to Pharmacist: *Please review and pick correct strength-formulation from [facility] options. If intended option is not shown, discontinue and re-order from Quick Search*, Taking Levothyroxine Sodium 25 MCG Tablet 1 tab(s) orally once a day , Taking PARoxetine HCl 30 MG Tablet 1 tab(s) orally once a day , Taking Claritin 10 MG Tablet 1 tab(s) orally once a day , Taking Losartan Potassium 25 MG Tablet 1 tab(s) orally once a day , Taking Simvastatin 20 MG Tablet 1 tab(s) orally once a day (at bedtime) , Taking VIT D 500IU TABLET ORAL BID , Notes to Pharmacist: *Please review for potential replacement for e-prescription and drug interaction check* Objective: * Vitals: Assessment: Plan: * Treatment: * Billing Information: * Visit Code: * Procedure Codes: * Electronic signature of Prov ider Migration on 02/11/2025 at 02:46 AM EST Sign off status: Pending * Provider: Date: 0 10/16/2024 Generated for Mary zamora/Panchito/Chelo on: 04/13/2024 02:46 AM EST
--- NOTE | 2025-01-31 14:42 | PC.NURSE ---
[facility] has started construction of its new state of the art ER which will open Spring 2026. With this, we anticipate parking may be a challenge for some our surgical patients and families. Parking spaces are limited but are available for all Surgical, obstetrics, and ER patients sharing this lot. If you arrive and find you are having a hard time finding a parking space, please note that we understand the challenges, please drive around the hospital and park near Hospital Entrance 1. When you enter this entrance, you can ask a volunteer to direct or take you back to the surgical waiting area to check in. We appreciate everyone?s understanding of these expected challenges while we build for your future. Report to the Outpatient Waiting Room, entrance under the green pavilion located off [address], at time _11:30 AM on date __02/11/25 . Planned Procedure Time: __1:30 PM .? Time changes happen often and if your time is changed the preop area will call you the afternoon before. - You and your visitor will be asked to self-screen and do not enter if you have any COVID symptoms. Please call surgeon if you need to reschedule. - A mask is optional within the hospital at this time. Patients may have clear liquids (water, carbonated beverages, clear teas, apple juice) until 3 hours prior to surgery( 10:30 AM) with a maximum of 20 ounces. - No food from midnight until time of surgery and no smoking, or chewing tobacco (or any form of nicotine). No chewing gum, candy or mints. - Take only the following medications with a SIP of water on the morning of surgery: __CARVEDILOL,LAMOTRIGINE, PRIMIDONE, LEVOTHYROXINE_PAROXETINE DO NOT STOP ANY OF YOUR OTHER PRESCRIPTION MEDICATIONS PRIOR TO SURGERY EXCEPT THE FOLLOWING Hold all vitamins and supplements for 3 days per anesthesiologist.LAST DOSE 02/07/25 Medications to discontinue per physician ASPIRIN PER DR TONY DELGADO Date to take last dose Please no make-up, nail turkish, hairspray, perfume, deodorant, or body powder the day of surgery.? No jewelry (including any body piercings) or valuables the day of surgery, leave them at home.? Please take a shower or bath the night before, or the morning of, surgery with an antibacterial soap.? Wear comfortable, loose fitting clothing.? Children are encouraged to wear pajamas. - Jewelry must be removed prior to entering the operating room.? Rings and piercings that are not removed may be cut off. - The hospital will not accept responsibility for valuables.? - Please leave all valuables, including medications, at home the day of surgery. If you are going home after surgery, a licensed car pick up driver must drive you home.? - NO public transportation without another adult if you receive anesthesia. - We recommend that an adult stay with you for 24 hours following discharge. - We also recommend that you do not drive, make important decision, drink alcoholic beverages, or take any drugs that were not prescribed by your health care provider for at least 24 hours after your discharge time. For Pediatric surgeries, we recommend two adults accompany the child home. Follow any additional instructions given to you from your surgeon. Telephone instructions given to _PATIENT and asked if any additional questions and then verbalized understanding. Patient advised to call surgeon office or pre surgery nurse liaison [phone] if any additional questions.
[2025-01-31 14:57] VITALS: BMI 43.4
--- NOTE | 2025-02-08 07:31 | PM.IMHP ---
H&P: HPI History of Present Illness Date/Time: 02/08/25 07:31 Chief Complaint: Postmenopausal bleeding Narrative: This 84-year-old female postmenopausal bleeding. She noted she had had some spotting and had a cystoscopy with negative findings she did take hormones long time ago she thinks she may have had hysteroscopy in [place] a few years ago for similar complaints I am unable to get those records. Ultrasound shows her endometrial lining not well seen it does appear that there was a fibroid present in the has fairly normal blood supply to it in light of the bleeding of offered her diagnostic hysteroscopy. Risks and benefits reviewed including not exclusive of , aspiration pneumonia, bleeding, transfusion, perforation injury to bowel, bladder, ureters, or other internal organs with need for open laparotomy. She received the ACOG handouts entitled hysteroscopy and dilatation curettage respectively. She had all questions answered. She asked to proceed. Review of Systems Review of Systems: All systems reviewed & are unremarkable except as noted in HPI and below PMFSH Past Medical History Medical History Hypertension Hypothyroidism Essential tremor Social History Social History Smoking packs per day: 0.5 Smoking cigarettes per day: 10.0 Years smoked: 4 Smoking pack-years: 2.00 Smoking status: Former smoker Tobacco type: cigarettes Smoking end date: 03/24/74 Alcohol intake: current Drinks per week: 7 Alcohol use details: WINE Living arrangements: with family Spiritual care concerns: No Meds Home Medications and Allergies Home Medications ?Medication ?Instructions ?Recorded ?Confirmed ?Type aspirin 81 mg capsule 81 mg PO DAILY 07/01/24 01/31/25 History carvedilol 6.25 mg tablet 6.25 mg PO Q12H 07/01/24 01/31/25 History losartan 50 mg tablet 50 mg PO DAILY 07/01/24 01/31/25 History melatonin 3 mg capsule 3 mg PO HS 07/01/24 01/31/25 History vitamin B complex 1 cap PO DAILY 07/01/24 01/31/25 History vitamin D3 125 mcg (5,000 1 cap PO DAILY 07/01/24 01/31/25 History unit)-vitamin K2 100 mcg capsule lamotrigine 100 mg tablet See Rx Instructions .Route 07/20/24 01/31/25 Rx .COMPLEX #180 tabs paroxetine HCl 30 mg tablet 30 mg PO DAILY #90 tabs 09/13/24 01/31/25 Rx levothyroxine 25 mcg tablet 25 mcg PO DAILY 11/19/24 01/31/25 History rosuvastatin 40 mg tablet 40 mg PO HS #90 tabs 11/26/24 01/31/25 Rx primidone 250 mg tablet 300 mg PO HS 12/30/24 01/31/25 History omeprazole 20 mg capsule,delayed See Rx Instructions .Route 01/05/25 01/31/25 Rx release .COMPLEX #90 caps doxepin 3 mg tablet (Silenor) 3 mg PO QHS PRN sleep #30 tabs 01/27/25 01/31/25 Rx Allergies Allergy/AdvReac Type Severity Reaction Status Date / Time No Known Allergies Allergy Verified 01/31/25 14:42 Exam Const: General: cooperative, comfortable and obese Orientation/consciousness: oriented to person, oriented to place and oriented to time HENMT: Head: normal to inspection Resp: Effort & Inspection: normal respiratory effort Cardio: Rate: regular rate Rhythm: regular rhythm Heart sounds: S1 normal heart sound present and S2 normal heart sound present GI: Inspection: normal to inspection : External Female Exam: normal external appearance Speculum Exam - Vagina: normal appearance of the vagina Speculum Exam - Cervix: normal appearance of the cervix Bimanual exam- vagina & uterus: enlarged Bimanual Exam- Adnexa, other: normal adnexae (Difficult to discern secondary to obesity) Assessment and Plan Assessment and plan (1) Postmenopausal bleeding: Code(s): N95.0 - Postmenopausal bleeding Status: Acute Plan Proceed with hysteroscopy/dilatation curettage
--- OUTSIDE RECORDS SUMMARY | 2025-02-11 01:46 | XMS_ITS | Patient Health Record ---
Author Organization [facility] Address [address] [place] [address] Care Team Providers Care Nurse Licensed Practical Name Role Phone PetronaAdriano Unavailable [phone] doctor, Dr madrigal Unavailable Unavailable Migration, Provider [...] a nd pick correct strength-formulatio n from [employer] options. If intended option is not shown, [...] Stiffness of joint of left foot (finding) (772388926505846) Stiffness of left foot, not elsewhere classified (M25.675) Active confirmed Problem Instability of joint of left foot (finding) (15278793873297534 ) Other instability, left foot (M25.375) Active confirmed Problem Enthesopathy of foot region (966546315) Other enthesopathy of left foot (M77.52) Active confirmed Problem Metatarsalgia of left foot (318941296805863) Metatarsalgia, left foot (M77.42) Active confirmed Problem Bilateral atherosclerosis of arteries of lower limbs (disorder) (39717813112215114 ) Unspecified atherosclerosis of grindstone arteries of extremities, bilateral legs (I70.203) Active confirmed Problem Benign neoplasm of skin of lower limb (12559245) 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, 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) Active confirmed Problem Stiffness of joint of right foot (finding) (648397703799970) Stiffness of right foot, not elsewhere classified (M25.674) Active confirmed Problem Peripheral venous insufficiency (38834278) Venous insufficiency (chronic) (peripheral) (I87.2) Active confirmed Problem Pain in limb (01441326) Pain of left foot (M79.672) Active confirmed Problem Arthralgia of the ankle and/or foot (341077690) Pain in joint, ankle and foot, left (M25.572) Active confirmed Encounters Encounter Location Date Provider Diagnosis [facility] [address] [address] 10/16/2024 Provider Migration Plan Of Treatment Pending [...] Part B [address] [place] [address] [id number] Silvana Hare Self - patient is the insured 8 [employer] Supplement [address] [place] [phone] [id number] Silvana Hare Self - patient is the [...] Surgical History Surgery Date(Month/Year) various elective sx [id number] brain 2018 sinus surgery 2014 2 bunion sx 2009 Hospitalization History Reason Date(Month/Year) see above
--- OUTSIDE RECORDS SUMMARY | 2025-02-11 01:46 | XMS_ITS | Data Portability ---
Author Organization [place] [facility] [employer] [facility] Address [address] [place] [address] Care Team Providers Care Market Development Trainer Name Role Phone DEBI MATOS Primary Care [...] By Organization Details Last Modified Time 09/15/2023 [id number] The member was located in [place] at the time of this call. Miscellaneous RPM visit. During the communication today the following member needs were addressed: CONTACTED PT FOR NURSE VISIT. PT SAID SHE WOULD LIKE TO BE TEXTED FOR ANY UPCOMING APPTS BECAUSE SHE IS OFTEN SLEEPING AND DOESN'T ANSWER THE PHONE VERY OFTEN. WILL FOLLOW UP WITH PT SCHEDULED. Was there a need during this visit to complete a Member Service Request? No. If yes, provide a summary of the request. Total time spent in service of member: 10 [email or web address] Not available 09/15/2023 15:29:17 09/29/2023 [id number] General Information During the time of telephonic member was located in [place]. Member is enrolled in hypertension program. During the call the nurse reviewed patients blood pressure and was able to address patient's concerns and/or questions. Clinical Picture Average BP Over last 30 days: Systolic 125 Diastolic 70 . Based on member's readings and the parameters set by [facility] RETAIL FIELD REPRESENTATIVE, member's blood pressure is . At this time member symptoms throughout the call. Nursing Review of Systems Symptoms present during the encounter Last 7 Days of readings 09/29/2023, 7:35:45 [...] provider follow-up visit has been recommended in N/A-No symptoms. Member is in agreement with this plan. Member has not requested records to be sent to their PCP. Member has been advised to connect with their PCP for any non urgent symptoms or concerns. Member was advised to call 911 or go to the emergency room if experiencing any urgent or life threatening symptoms or concerns. Nursing Progress Note brief synopsis of interventions Patient goals were revised and reviewed in the call. A medication reconciliation was performed Appointment confirmation Members next [place] appointment is confirmed on 10/12 between 3 and 4 All members must have an RETAIL FIELD REPRESENTATIVE visit at minimum every 6 months while active, or when meeting escalation criteria. A [facility] RETAIL FIELD REPRESENTATIVE follow-up visit . Members next [facility] RETAIL FIELD REPRESENTATIVE follow-up appointment is confirmed on between . Was there a need during this visit to complete a Member Service Request? No. If yes, provide a summary of the request. Total time spent in the care of the member: 15 minutes Please refer to member's care plan for additional details. [email or web address] Not available 09/29/2023 16:06:52 10/13/2023 [id number] General Information Member was contacted via interactive telephonic outreach and was located in [place]. Call recording disclaimer was given to member, and was verified. Member is enrolled in diabetes and hypertension program. During the call the nurse was able to address member's no questions or concerns voiced. Clinical Picture Average BP Over last 30 days: Systolic Average: 122 Diastolic Average: 67 Based on member's readings and the parameters set by [facility] RETAIL FIELD REPRESENTATIVE, member's blood pressure is at goal. Average BG Over last 30 days: non compliant doesnt want to take Based on member's readings and the parameters set by provider, member's blood glucose is . At this time member denies symptoms throughout the call. Nursing Review of Systems Member asymptomatic at time of call Last 7 Days of BP readings 10/13/2023, [...] of BG readings n/a Follow-up Based on normal biometric readings and no symptoms endorsed by member a [facility] RETAIL FIELD REPRESENTATIVE follow-up visit has not been recommended. Member is in agreement with this plan. Member has not requested records to be sent to their PCP. Member has not requested supplies at time of visit. Supplies requested by member . Member has been advised to connect with [...] pt not taking bg. Patient goals were reviewed during the call. Please refer to member's care plan for additional details. A medication reconciliation was not performed. If not performed, please state the reason why - med list unavailable. A Member Service Request was not completed during this visit. Details of request - . Appointment Confirmation Members next [place] appointment is confirmed on - 10/27/2023 3:00 - 4:00 PM EDT All members must have an RETAIL FIELD REPRESENTATIVE visit at minimum every 6 months while active, or when meeting escalation criteria. A [facility] RETAIL FIELD REPRESENTATIVE follow-up visit was not offered/needed today. Members next [facility] RETAIL FIELD REPRESENTATIVE follow-up appointment has not been scheduled between . Total time spent in the care of the member: 15 minutes [email or web address] Not available 10/13/2023 16:08:10 10/27/2023 [id number] General Information Member was contacted via interactive telephonic outreach and was located in [place]. Call recording disclaimer was given to member, and was verified. Member is enrolled in hypertension program. During the call the nurse was able to address member's no questions or concerns voiced. Clinical Picture Average BP Over last 30 days: Systolic 119 Diastolic 67 Based on member's readings and the parameters set by [facility] RETAIL FIELD REPRESENTATIVE, member's blood pressure is at goal. At this time member denies symptoms throughout the call. Nursing Review of Systems Last 7 Days of BP readings 10/27/2023, [...] EDT 131 67 73 Follow-up Based on normal biometric readings and no symptoms endorsed by member, a [facility] RETAIL FIELD REPRESENTATIVE follow-up visit has not been recommended. Member is in agreement with this plan. Member has not requested records to be sent to their PCP. [...] CONCERNS. PT VERBALIZED UNDERSTANDING. Patient goals were reviewed during the call. Please refer to member's care plan for additional details. A medication reconciliation was not performed. If not performed, please state the reason why - PT HAD TO CUT CALL SHORT DUE TO LEAVING HOUSE . A Member Service Request was not completed during this visit. Details of request - . Appointment Confirmation Members next [place] appointment is confirmed on - 11/09 All members must have an RETAIL FIELD REPRESENTATIVE visit at minimum every 6 months while active, or when meeting escalation criteria. A [facility] RETAIL FIELD REPRESENTATIVE follow-up visit was not offered/needed today. Members next [facility] RETAIL FIELD REPRESENTATIVE follow-up appointment between . Total time spent in the care of the member: 10 minutes Not available 10/27/2023 15:39:53 11/10/2023 [id number] General Information Member was contacted via interactive telephonic outreach and was located in [place]. Call recording disclaimer was given to member, and was verified. Member is enrolled in hypertension program. During the call the nurse was able to address member's no questions or concerns voiced. Clinical Picture Average BP Over last 30 days: Systolic 116 Diastolic 68 Based on member's readings and the parameters set by [facility] RETAIL FIELD REPRESENTATIVE, member's blood pressure is at goal. At this time member denies symptoms throughout the call. Nursing Review of Systems Last 7 Days of BP readings 11/10/2023, [...] EDT 128 84 70 Follow-up Based on normal biometric readings and no symptoms endorsed by member, a [facility] RETAIL FIELD REPRESENTATIVE follow-up visit has not been recommended. Member is in agreement with this plan. Member has not requested records to be sent to their PCP. [...] MEDICATION CHANGES FOR PT. Patient goals were reviewed during the call. Please refer to member's care plan for additional details. A medication reconciliation was not performed. If not performed, please state the reason why - PT NOT AVAILABLE . A Member Service Request was completed during this visit. Details of request - MEMBER REQUEST TO D/C BGM . Appointment Confirmation Members next [place] appointment is confirmed on 12/07 All members must have an RETAIL FIELD REPRESENTATIVE visit at minimum every 6 months while active, or when meeting escalation criteria. A [facility] RETAIL FIELD REPRESENTATIVE follow-up visit was not offered/needed today. Members next [facility] RETAIL FIELD REPRESENTATIVE follow-up appointment between . Total time spent in the care of the member: 15 minutes [email or web address] Not available 11/10/2023 16:04:17 Reason for Referral None Reported. Problems Name Problem SNOMED Code Status Onset Date Resolution Date Notes Provider Name and Address Organization Details Recorded Time Essential hypertension 34576502 Active 2023 Carisa osorio, RETAIL FIELD REPRESENTATIVE [address] , [place], [address], [place] [facility] 14:05:29 Prediabetes 999923558 Active 2023 Carisa osorio, RETAIL FIELD REPRESENTATIVE [address] , [place], [address], [place] [facility] 14:05:31 Obesity 225708421 Active 2023 Carisa osorio, RETAIL FIELD REPRESENTATIVE [address] , [place], [address], [place] [facility] 14:05:43 Atrial fibrillation 84690354 Active 2023 Carisa osorio, RETAIL FIELD REPRESENTATIVE [address] , [place], [address], [place] [facility] 14:05:49 Anxiety 46450196 Active 2023 Carisa osorio, RETAIL FIELD REPRESENTATIVE [address] , [place], [address], [place] [facility] 14:05:56 Depressive disorder 23983115 Active 2023 Carisa osorio, RETAIL FIELD REPRESENTATIVE [address] , [place], [address], [place] [facility] 14:06:02 Epilepsy 46630677 Active 2023 Carisa osorio, RETAIL FIELD REPRESENTATIVE [address] , [place], [address], [place] [facility] 14:06:12 Sleep apnea 68840498 Active 2023 Carisa osorio, RETAIL FIELD REPRESENTATIVE [address] , [place], [address], [place] [facility] 4 14:06:20 Hypothyroidism 05320873 Active 2023 Carisa osorio, RETAIL FIELD REPRESENTATIVE [address] , [place], [address], [place] [facility] 14:06:28 Hyperlipidemia 92102458 Active 2023 Carisa osorio, RETAIL FIELD REPRESENTATIVE [address] , [place], [address], [place] [facility] 14:06:34 Problem Notes None recorded. Procedures Surgical History Date Name Laterality Status Provider Name and Address Organization Details Recorded Time cholecystectomy completed Carisa Blunt , TEJINDER [address], [place], [address], [place] [facility] 07/03/2023 14:01:30 chin lift completed Carisa Blunt , TEJINDER [address], [place], [address], [place] [facility] 07/03/2023 14:01:49 total replacement of left knee joint completed Carisa Blunt NP [address], [place], [address], [place] [facility] 07/03/2023 14:02:00 total replacement of right knee joint completed Carisa Blunt NP [address], [place], [address], [place] [facility] 07/03/2023 14:02:10 Exploration maxillary sinus completed Carisa Blunt NP [address], [place], [address], [place] [facility] 07/03/2023 14:02:41 craniectomy completed Carisa Blunt NP [address], [place], [address], [place] [facility] 07/03/2023 14:02:52 Imaging Results None recorded. Procedure [...] Updated DateTime 10/27/2023 162.56 cm 40.3 kg/m2 159703.21 g [place] 10/27/2023 15:39:57 Social History Question Answer Notes LastModified by Organizat ion Details LastModified Time Tobacco Smoking Status Former Smoker Carisa Wason-Fawver, RETAIL FIELD REPRESENTATIVE [address], [place], [address], [facility] 07/03/2023 13:54:10 What Is Your Level Of Caffeine Consumption? Moderate Information not available 07/03/2023 When Did You Quit Smoking? 16+yearssincel [email or web address] Information not available 07/03/2023 Sex: Unknown Functional [...] Diagnosis SNOMED-CT Code Diagnosis ICD10 Code Diagnosis IMO Codes Diagnosis Note [id number] Carisa Wason-Fawv er, RETAIL FIELD REPRESENTATIVE PS_Provid er Schedule [address] [place] [address] 07/03/2023 13:40:24 07/03/2023 14:08:36 Essential hypertension 21564341 I10 Prediabetes 579633789 R7 3.03 172630 Carisa Nolanon-Fawv er, RETAIL FIELD REPRESENTATIVE NS_Nursin g Schedule [address] [place] [address] 07/21/2023 15:13:02 07/21/2023 16:39:49 Essential hypertension 35554186 I10 Prediabetes 522812097 R7 3.03 [id number] Carisa Wason-Fawv er, RETAIL FIELD REPRESENTATIVE NS_Nursin g Schedule [address] [place] [address] 08/01/2023 15:56:41 08/01/2023 17:01:56 Essential hypertension 33121764 I10 Prediabetes 837214855 R7 3.03 [id number] Carisa Wason-Fawv er, RETAIL FIELD REPRESENTATIVE NS_Nursin g Schedule [address] [place] [address] 08/04/2023 15:02:39 08/04/2023 16:55:57 Essential hypertension 05849916 I10 Prediabetes 216608872 R7 3.03 819334 Carisa Wason-Fawv er, RETAIL FIELD REPRESENTATIVE NS_Nursin g Schedule [address] [place] [address] 09/01/2023 15:48:33 09/01/2023 17:00:58 Essential hypertension 33331745 I10 Prediabetes 450218495 R7 3.03 [id number] Carisa Wason-Fawv er, RETAIL FIELD REPRESENTATIVE NS_Nursin g Schedule [address] [place] [address] 09/15/2023 15:19:55 09/16/2023 08:36:48 Essential hypertension 43558847 I10 Prediabetes 937702874 R7 3.03 [id number] Carisa Nolanon-Fawv er, RETAIL FIELD REPRESENTATIVE NS_Nursin g Schedule [address] [place] [address] 09/29/2023 15:55:33 09/29/2023 17:01:09 Essential hypertension 51697764 I10 Prediabetes 717618355 R7 3.03 [id number] Carisa Wason-Fawv er, RETAIL FIELD REPRESENTATIVE NS_Nursin g Schedule [address] [place] [address] 10/13/2023 15:55:16 10/13/2023 17:04:07 Essential hypertension 38377436 I10 Prediabetes 877836996 R7 3.03 [id number] Carisa Wason-Fawv er, RETAIL FIELD REPRESENTATIVE NS_Nursin g Schedule [address] [place] [address] 10/27/2023 15:31:55 10/27/2023 16:50:14 Essential hypertension 43423501 I10 Prediabetes 338534244 R7 3.03 [id number] Carisa Wason-Fawv er, RETAIL FIELD REPRESENTATIVE NS_Nursin g Schedule [address] [place] [address] 11/10/2023 15:53:20 11/10/2023 16:40:14 Essential hypertension 57417813 I10 Health Concerns Section Related Observation LastModified by Organization Detai ls LastModified Time None Recorded Concern Status LastModified by Organization Details LastModified Time None Recorded Advance Directives Directive None Recorded Payers Insurance Date Sequence Insurance Name Policy Number Policy Schilling Covered Member ID Schilling Member ID Guarantor Name 11/27/2023 [place] Silvana Hare [id number] Silvana Hare 10/27/2023 [place] Silvana Hare [id number] Silvana Hare 10/27/2023 1 [place] Silvana Hare [id number] Silvana Hare 07/03/2023 1 [facility] (MEDICARE REPLACEMENT/ ADVANTAGE - HMO) Silvana Hare [id number] Silvana Hare 12/22/2023 2 [employer] (MEDICARE SUPPLEMENT) Silvana Hare [id number] Silvana Hare OBGyn Episode No OBEpisode recorded.
--- OUTSIDE RECORDS SUMMARY | 2025-02-11 01:46 | XMS_ITS | Encounter Summary ---
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 Procedures NJX INTERLAMINAR CRV/THRC INJECTION EPIDURAL STEROID [id number] Patria Clark MD [facility] [address] [place] [address] Phone: tel: fax: Referral ID Status Reason Start Date Expiration Date Visits Re quested Visits Authorized [id number] 1 1 Encounter Details Date Type Department Care Team (Late st Contact Info) Description 12/10/2024 Hospital Encounter [facility] [place], [place] [id number] Patria Clark MD [facility] [address] [place] [address] Social History Tobacco Use Types Packs/Day Years Used Date Smoking Tobacco: Former Cigarettes Q uit: 1974 Passive Smoke Exposure: Past Smokeless Tobacco: Never Alcohol Use Standard Drinks/Week Comments Yes 16.7 (1 standard drink = 0.6 oz pure alcohol) 09/28. PHQ-2 Answer Date Recorded Patient Health Questionnaire-2 Score 0 09/28/2024 Comments No Sex and Gender Information Value Date Recorded Sex Assigned at Female 09/13/2024 1:50 PM CDT Legal Sex Female 5:49 PM CDT Gender Identity Not on file Sexual Orientation Not on file documented as of this encounter Functional Status * Calculated C-SSRS Risk Score (Lifetime/Recent) Answer Date of Assessment Author Status No Risk Indicated 10/18/2024 12:36 PM CDT Libby Nuñez RN Active * [place] Suicide Severity Rating Scale (Screener/Recent Self-Report) Question Answer Date of Assessment Author Status 1. Wish to be (Past 1 Month) No 10/18/2024 12:36 PM CDT Joslyn Nuñez RN A ctive 2. Non-Specific Active Suicidal Thoughts (Past 1 Month) No 10/18/2024 12:36 PM CDT Joslyn Nuñez RN A ctive 6. Suicidal Behavior (Lifetime) No 10/18/2024 12:36 PM CDT Joslyn Nuñez RN A ctive documented as of this encounter Plan of Treatment Upcoming Encounters Date Type Department Care Team (Late st Contact Info) Description 02/14/2025 3:20 PM MANAGER AUDIT Appointment [facility] [address] [place] [address] Wade Sky MD [facility] [address] [place] [address] 06/24/2025 2:20 PM CDT Office Visit [facility] - [facility] [address] [facility], [address] [place] [address] Monet Beltran MD [address] [place] [address] 07/29/2025 11:30 AM CDT Office Visit [facility] [address] Sadie Villasenor MD [facility] [address] [place] [address] documented as of this encounter Visit Diagnoses Diagnosis Intervertebral disc stenosis of neural canal of cervical region- Primary Spinal stenosis in cervical region documented in this encounter Admitting Diagnoses Diagnosis Intervertebral disc stenosis of neural canal of cervical region Spinal stenosis in cervical region documented in this encounter Care Teams Director Of Rehabilitative Services Relationship Specialty Start Date End Date Jose Norton MD [address] [place] [address] PCP - General FAMILY PRACTICE 02/13/24 documented as of this encounter
--- OUTSIDE RECORDS SUMMARY | 2025-02-11 01:47 | XMS_ITS | Data Portability ---
Author Organization [place] [facility] [place], [id number] TECHNOLOGICAL RADIOLOGY Address [address] [place] [id number] Care Team Providers Care Dairy Nutrition Consultant Name Role Phone MARILYN JAIN OTHER [phone] RADHA DUMONT Primary Care Provider [phone] ANN-MARIE BLANCO Sanitary Engineer Assessment Encounter Date Assessment Date Assessment LastModified [...] in the midline when the patient says aah. CN XI: Sternomastoid patient can turn the [...] impairment, return in 3 months for reevaluation [email or web address] Not available 12/22/2020 15:13:31 11/19/2021 11/19/2021 PT is a 79 y/o F with PMHx sig for GERD, colon polyp, HLP, meningioma- s/p brain sx, seizures and osteoporosis who presents for f/u of multiple GI complaints. [email or web address] Not available 11/19/2021 09:50:24 01/20/2023 01/20/2023 PT [...] mg tablet 2022 023 [email or web address] [id number] [address], [address] [place], [address], 16:56:38 primidone 50 mg tablet 2020 [facility] [address] [facility] [employer], [address] [place], [address], 14:55:36 primidone 250 mg tablet 2020 [facility] [address] [facility] [employer], [address] [place], [address], 14:55:37 lamotrigin e 25 mg tablet 2020 [facility] [address] [facility] [employer], [address] [place], [address], 14:55:37 venlafaxin e 75 mg tablet 2020 [facility] [address] [facility] [employer], [address] [place], [address], 14:55:37 Patient TargetsNo targets recorded. Patient Instructions Encounter Date Encounter Id Patient Instructions Last Modified By Organization Details Last Modified Time 11/19/2021 [id number] diarrhea: care instructions [email or web address] Not available 11/19/2021 10:02:40 11/29/2022 [id number] diarrhea: care instructions Not available 11/29/2022 15:51:41 Reason for Referral None Reported. Results Created Date Observation Date Name Description Value Unit Range Abnormal Flag Note LastModifiedBy Organization Detail LastModifiedTime 12/26/19 22 12/25/2021 DEXA, axial skele ton Physic ians Region al HerronYehuda Youngblood t: AZALEA JACKSON [id number] : 943 Sex: Female Locati on: [facility] Orderi ng Physic arlene: SOCORRO GOMES NP Bone Densit y ACCESS ION EXAM DATE/T [...] (T score) . COMPAR PHILIP: OT DEXA 2:32 PM FINDIN GS: DXA Scanne r [...] Artemio Pena MD On 2021 16:21: 06; [facility] [id number] Final Signed by: ARTEMIO PENA MD Signed (Elect demetrio queen): 2021 04:21 pm EDT [email or web address] [facility] - Radiology Scheduling [address] [place], [address], 12/31/2021 15:34:33 Result Notes Documentation Provider Name and Address Organization Details Recorded Time Dexa, Axial Skeleton : [facility] Patient: SILVANA JACKSON : 1940 Sex: Female Location: [facility] Ordering Physician: SOCORRO MERINO NP Bone Density ACCESSION EXAM DATE/TIME [id number] 12/25/2021 15:49 EDT Reason For Exam m85.88 Report PROCEDURE INFORMATION: Exam: XR DXA Bone Density, Axial Skeleton Exam date and time: 12/25/2021 3:00 PM Age: 81 years old Clinical indication: Screening exam; Screening for osteoporosis; Additional info: M85.88 TECHNIQUE: Imaging protocol: Dual energy x-ray absorptiometry performed. Bone mineral density analysis of the lumbar spine and the femoral neck or total hip. Readings are compared with gender matched average of normal, and with age, weight and ethnic origin (Z score) and with healthy young adults (T score). COMPARISON: OT DEXA 01/31/2016 2:32 PM FINDINGS: DXA Scanner make and model: HoloMass Mosaic LEFT FEMORAL NECK: Bone mineral density is 0.659 g/cm2. T-score is -1.7 Z-score is 0.6 Osteopenia range by WHO criteria. 17.1% decline LEFT TOTAL HIP: Bone mineral density is 1.016 g/cm2. T-score is 0.6 Z-score is 2.6 Normal range by WHO criteria. 13.7% decline Frax score (10-year fracture risk): Major osteoporotic fracture: 12 % Hip fracture: 2.9 % LUMBAR SPINE: Levels included: L1-L4 Bone mineral density is 1.387 g/cm2. T-score is 3.1 Z-score is 5.7 Normal range by WHO criteria. 3.9% decline Impression: Osteopenia by WHO criteria Reference: Bone mineral density is measured in g/cm2. Z-score is the number of standard deviations above age-matched controls. T-score is the number of standard deviations above healthy young adults. World Health Organization Guidelines: Bone Density Report Normal bone mineral density is T-score at or above -1. Osteopenia is T-score between -1 and -2.5. Osteoporosis is T-score of -2.5 or below. Severe osteoporosis is T-score of -2.5 or below with fracture(s). Artemio Pena MD On 12/25/2021 16:21:06; -[id number] Final Signed by: ARTEMIO PENA MD Signed (Electronic Signature): 12/25/2021 04:21 pm EDT Sonido Mckenna CMA null, [place] [facility] [place] 12/31/2021 15:34:33 Problems Name Problem SNOMED Code Status Onset Date Resolution Date Notes Provider Name and Address Organization Details Recorded Time Hypercholeste rolemia 80950463 Active Not Available [facility] 12:50:53 Migraine 70684805 Active Not Available [facility] 12:50:53 Essential hypertension 08809103 Active Not Available [facility] 12:50:52 Tubular adenoma 504647237 Active Not Available [facility] 12:50:53 Hyperglycemia 27032004 Active Not Available [facility] 12:50:52 Gastroesophag eal reflux disease 475983013 Active Not Available [facility] 12:50:53 Epigastric pain 99278847 Active Not Available [facility] 12:50:53 Obesity 377899556 Active Not Available [facility] 12:50:52 Diarrhea 47548468 Active Not Available [facility] 12:50:53 Depressive disorder 21378612 Active Not Available [facility] 12:50:52 Anxiety disorder 568995377 Active Not Available [facility] 12:50:52 Generalized abdominal pain 431081581 Active Not Available [facility] 12:50:52 Osteoporosis 19007940 Active Not Available [facility] 12:50:52 Vitamin D deficiency 15480060 Active Not Available [facility] 12:50:52 Megaloblastic anemia due to vitamin B>12< deficiency 18595629 Active Not Available [facility] 12:50:52 Senile osteoporosis 87301328 Active Not Available [facility] 12:50:52 Heart murmur 25494340 Active Not Available [facility] 12:50:52 Thready pulse 84249504 Active Not Available [facility] 12:50:52 Edema 938594143 Active Not Available [facility] 12:50:52 Morbid obesity 272499882 Active Not Available [facility] 12:50:52 Pain of joint 24592383 Active Not Available [facility] 12:50:53 Jaime thyroiditis 23564339 Active Not Available [facility] 12:50:53 Hyperlipidemi a 09872850 Active Not Available [facility] 12:50:53 Body mass index 30+ - obesity 848051186 Active Not Available [facility] 12:50:53 Malaise and fatigue 270957294 Active Not Available [facility] 12:50:52 Synovial cyst of popliteal space Active Not Available [facility] 12:50:53 Cough 53005250 Active Not Available [facility] 12:50:53 Tremor 69634158 Active 2017 Not Available [facility] 12:50:52 Insomnia 211572183 Active 2017 Not Available [facility] 12:50:53 Seizure disorder 581243466 Active 2017 Not Available [facility] 12:50:53 Disorder of vitamin B12 233442707 Active 2018 Not Available [facility] 1 12:50:52 Memory impairment 633530167 Active 2020 Not Available [facility] 12:50:53 Fatigue 94751550 Active 2021 SOCORRO WU APRN [address] [place] [address], [address] , [address] 2 09:49:59 Polyp of colon 80376755 Active 2021 SOCORRO WU APRN [address] [place] [address], [address] , [address] 2 09:58:37 Abdominal bloating 315773795 Active 2021 SOCORRO WU APRN [address] [place] [address], [address] , [address] 2 10:11:09 Incontinence of feces 46981127 Active 2021 SOCORRO WU APRN [address] [place] [address], [address] , [address] 2 10:15:09 Dysphagia 19497355 Active 2021 SOCORRO WU APRN [address] [place], [address] , [address] 2 10:15:09 Gastroesophag eal reflux disease without esophagitis 237455348 Active 2022 ANN-MARIE BLANCO MD [address] [place], [address] , [address] 3 14:26:09 Problem Notes None recorded. Procedures Surgical History Date Name Laterality Status Provider Name and Address Organization Details Recorded Time 11/30/19 20 Colonoscopy completed Allison Gillespie RN Clinic Office [address] 12/14/2019 16:22:28 05/01/19 15 Orthopaedic Surgery completed Allison Gillespie RN [facility] [address] 04/24/2015 10:57:09 02/25/20 14 Date of Last Pap Smear completed Martha Vaughn RN [facility] Office [address] 04/01/2014 10:44:02 12/23/19 14 Date of Last Mammogram completed Martha Vaughn RN [facility] [address] 02/24/2014 11:22:55 08/23/19 12 Colonoscopy completed Anastasiya Yusuf LPN [address] 01/22/2016 09:52:10 Cholecystectomy completed Gloria Jean-Pierre [address] 12/14/2013 14:45:18 Appendectomy completed Gloria Jean-Pierre [address] 12/14/2013 14:45:18 Other completed Gloria Jean-Pierre [address] 12/14/2013 14:45:18 Other completed Gloria Jean-Pierre [address] 12/14/2013 14:50:14 Appendectomy completed Bernardo Danae [address] 01/24/2014 09:07:08 Cholecystectomy completed Bernardo Danae [address] 01/24/2014 09:07:08 Breast Surgery completed Bernardo Danae [address] 01/24/2014 09:07:08 Other completed Bernardo Danae [address] 01/24/2014 09:07:08 Other completed Bernardo Danae [address] 01/24/2014 09:07:08 Tubal Ligation completed Martha Vaughn RN Clinic Office [address] 02/24/2014 11:22:55 Other completed Martha Vaughn RN [facility] Office [address] 02/24/2014 11:22:55 breast augmentation completed Jayden Tapia RN Clinic Office [address] 02/24/2014 11:22:55 Endometrial Ablation completed Martha Vaughn RN [facility] Office [address] 02/24/2014 11:22:55 Imaging Results None recorded. Procedure Notes None recorded. Medical Equipment None Reported. Allergies Allergen ID Allergen Name Allergen Category Reaction Reaction Severity Criticality Documentation Date Start Date Code Code System Note Provider Name and Address Organization Details Recorded Time 145705 Ceclor medicatio n Not available Not available Not available 12/14/2013 5 RxNorm Gloria Morejon [address] 4 14:50:14 411241 cefaclor medicatio n myalgias (muscle pain) Not available Not available 01/17/2014 2176 RxNorm Bernardo Danae [address] 4 09:07:08 931266 Cipro medicatio n Not available Not available Not available 02/24/201469894 3 RxNorm Martha Vaughn RN Clinic Office [address] 4 11:22:55 Medications Name Sig Start [...] completed Not Available Not Available Not Available Zyrtec 04/24 completed Not Available Not Available Not [...] Available Not Available Not Available Fluzone High-Dose 3935-9128 (PF) 180 mcg/0.5 mL intramuscu lar syringe TO BE ADMINIST ERED BY PHARMACI ST FOR IMMUNIZA TION 08/05 completed Not Available Not Available Not Available Fluzone High-Dose 2079-1166 (PF) 180 mcg/0.5 mL intramuscu lar syringe TO BE ADMINIST ERED BY THE PHARMACI ST 08/05 completed Not Available Not Available Not Available Fluzone High-Dose 1021-8739 (PF) 180 mcg/0.5 mL intramuscu lar syringe [...] Not Available Vitals Date Recorded Body height Heart rate Respiratory rate Oxygen saturation Pain severity - 0-10 verbal numeric rating [Score] - Reported Body mass index (BMI) Body weight Systolic And Diastolic Provider Name and Address Organization Details Last Updated DateTime 4 162.56 cm 87 /min 16 /min 98 % 0 42.9 kg/m2 208135. 09 g 122/82 mm[Hg] Allison Gillespie RN [facility] [address] 4 14:30:54 Date Recorded Body height Body mass index (BMI) Body weight Heart rate Respiratory rate Oxygen saturation Pain severity - 0-10 verbal numeric rating [Score] - Reported Systolic And Diastolic Provider Name and Address Organization Details Last Updated DateTime 2 162.56 cm 41.2 kg/m2 285010. 17 g 88 /min 16 /min 98 % 0 122/85 mm[Hg] Allison Gillespie RN [facility] [address] 2 09:43:50 Date Recorded Body weight Heart rate Respiratory rate Oxygen saturation Body mass index (BMI) Body height Pain severity - 0-10 verbal numeric rating [Score] - Reported Systolic And Diastolic Provider Name and Address Organization Details Last Updated DateTime 3 414993. 21 g 87 /min 16 /min 98 % 40.3 kg/m2 162.56 cm 1 128/83 mm[Hg] Allison Gillespie RN [facility] [address] 3 14:30:54 Date Recorded Body height Body mass index (BMI) Body weight Heart rate Oxygen saturation Systolic And Diastolic Provider Name and Address Organization Details Last Updated DateTime 1 162.56 cm 37.8 kg/m2 94921.3 2 g 85 /min 95 % 132/90 mm[Hg] Harika Javy, Casino Gaming Inspector Cert [address] 1 14:42:04 Date Recorded Body height Heart rate Respiratory rate Oxygen saturation Pain severity - 0-10 verbal numeric rating [Score] - Reported Body mass index (BMI) Body weight Systolic And Diastolic Provider Name and Address Organization Details Last Updated DateTime 3 162.56 cm 87 /min 16 /min 98 % 0 41.2 kg/m2 134444. 17 g 128/83 mm[Hg] Allison Gillespie RN [facility] [address] 3 14:07:00 Social History Question Answer Notes LastModified by [employer] Details LastModified Time Tobacco Smoking Status Former Smoker [email or web address] 's Allison Gillespie RN [facility] [address] 01/17/2014 15:00:38 What Is Your Level [...] Of Your Most Recent Tobacco Screening? 01/20/2023 [email or web address] Information not available 01/20/2023 Sex: Unknown Functional Status Question Answer Note LastModified by [employer] Details LastModified Time What is your level of alcohol consumption? Occasional 4-5 wine q week [email or web address] Information not available 01/17/2014 What is your [...] completed Allison Gillespie RN Clinic Office null, [address] 01/10/2020 15:56:06 Influenza, high-dose, trivalent, PF 7 completed Allison Gillespie RN [facility] Office [address] 12/01/2019 15:38:31 Influenza, split virus, trivalent, preservative 8 completed Allison Gillespie RN [facility] [address] 12/01/2019 15:38:31 Influenza, split virus, trivalent, preservative 4 completed Allison Gillespie RN Clinic Office null, [address] 12/01/2019 15:38:31 Influenza, split virus, trivalent, preservative 2 completed Allison Gillespie RN [facility] Office [address] 12/01/2019 15:38:31 Pneumococcal conjugate PCV 13 7 rox Gillespie RN [facility] [address] 12/01/2019 15:38:31 Influenza, split virus, trivalent, preservative 0 completed Allison Gillespie RN [facility] [address] 12/01/2019 15:38:31 Influenza, split virus, trivalent, preservative 1 completed Allison Gillespie RN Clinic Office null, [address] 12/01/2019 15:38:31 Influenza, split virus, trivalent, preservative 9 completed Allison Gillespie RN Clinic Office null, [address] 12/01/2019 15:38:31 Influenza, high-dose, trivalent, PF 8 completed Harika [employer] null, [address] 12/22/2020 14:42:16 pneumococcal polysaccharide PPV23 0 completed Harika [employer] null, [address] 12/22/2020 14:42:16 zoster live 3 completed Harika [employer] null, [address] 12/22/2020 14:42:16 Influenza, high-dose, trivalent, PF 4 completed Mela Roque, RN null, [address] 03/31/2017 15:28:41 pneumococcal polysaccharide PPV23 0 completed Ly Roque, RN null, [address] 12/22/2017 09:52:35 Influenza, split virus, quadrivalent, preservative 6 completed Ly Roque, RN null, [address] 03/31/2017 15:28:41 pneumococcal polysaccharide PPV23 1 completed Ly Jude, RN null, [address] 03/31/2017 15:28:41 zoster live 3 completed Ly Jude, RN null, [address] 12/22/2017 09:52:36 Influenza, high-dose, trivalent, PF 5 completed Ly Roque, RN null, [address] 12/22/2017 09:52:35 Influenza, high-dose, trivalent, PF 4 completed Harika [employer] null, [address] 12/22/2020 14:42:16 Influenza, split virus, quadrivalent, preservative 7 completed Ly Jude, RN null, [address] 12/22/2017 09:52:35 Past Encounters Encounter ID Performer Location Encounter Start Date Encounter Closed Date Diagnosis/Indication Diagnosis SNOMED-CT Code Diagnosis ICD10 Code Diagnosis IMO Codes Diagnosis Note [id number] HARDIK JESSICA MD [facility] [address] [facility] [place] [address] 12/28/2013 11:02:14 12/28/2013 14:06:46 Dyspnea on exertion 79561143 because of her symptoms and her previous EKG having nonspecifi c ST-T changes (abnormal ekg), a stress test will be ordered. She has significan t osteoarthr itis of the knees and back pain and cannot do the treadmill. Because of this an adenosine stress test will be ordered. I suspect that she is also deconditio isela as well. Chronic back pain 449869959 she will followup with pain management . I explained that control of her back pain will be an essential part of her weight reduction program. We need to have her working with a rehab trainer in order to help her lose weight. A referral to a rehab trainer was given. Essential hypertension 68487825 her blood pressures have been stable. She will work on weight reduction program. Blood pressure goals were given. Hypercholesterolemia 83515136 her lipid profile goals were discussed. Her lipid profile will be rechecked. She will work on the above weight reduction program. Hyperglycemia 66380294 her A1c will be rechecked. Ophthalmol ogy followup and proper foot care will be emphasized . Fatigue 47162135 the above stress test will be ordered. A reconditio chuck program will be needed. Her labs will also include a CBC, CMP, TSH and B12 level. Vitamin D deficiency 32727988 her level will be checked to make sure that she is above 40 Megaloblas tic anemia due to vitamin B>12< deficiency 48871195 her level will be checked to make sure that she is above 122 [id number] ANN-MARIE BLANCO MD COL[facility]DESK 42 GI [address] [place] [address] 01/17/2014 13:59:07 01/17/2014 15:38:32 Gastroesophageal reflux disease 786106383 Restarting Omeprazole 40 mg p.o. q. a.m. Also instructed patient on GERD lifestyle modificati ons. Pending response may require EGD to rule out GERD complicati ons. Patient understand s and agrees. Epigastric pain 31552172 L ikely secondary to GERD however cannot rule out possible component of functional dyspepsia. Await response to restart of Omeprazole . Also instructed patient on GERD lifestyle modificati ons. As above, pending response may require EGD to rule out GERD complicati ons. Patient understand s and agrees. Obesity 414865500 S/p ~15 lb wt gain in past ~6 months. [...] sx. Patient understand s and agrees. Diarrhea 33109817 Etiology uncertain. Should rule out infectious etiology [...] lab results. History of polyp of colon 957848132 Pt s/p colonoscop y sig for TA in 2011. Risks of missed polyps explained to pt. For repeat colonoscop y in 2016. Pt underastan ds and agrees. [id number] MD [facility] [address] [facility] [address] [place] [address] 02/24/2014 10:59:58 02/24/2014 11:44:28 Screening for malignant neoplasm of cervix 951403400 Anxiety disorder 227342343 Depressive disorder 16085219 [id number] DIEGO LAY MD zzCOLB_W[facility] [address] [facility] [address] [place] [address] 04/01/2014 10:37:51 04/01/2014 11:20:38 Depressive disorder 50109980 Anxiety disorder 668231918 [id number] BRAN GRAHAM MD COL[facility]DESK 12 NEUR[address] [place] [address] 04/11/2014 10:59:53 04/11/2014 11:44:59 Migraine 54464847 Essential hypertension 84970060 Fatigue 02494359 Depressive disorder 80940026 Anxiety disorder 279703236 [id number] DIEGO LAY MD zzCOLB_[facility] [address] [facility] [address] [place] [address] 04/22/2014 10:20:42 04/22/2014 10:41:58 Depressive disorder 94083906 Anxiety disorder 685782392 Hypercholesterolemia 53183243 [id number] ANN-MARIE BLANCO MD COL[facility]K [address] [place] [address] 11/14/2014 10:29:49 11/14/2014 11:48:46 Diarrhea 90590370 Advised patient that likely multifacto rial in [...] IBS-D. Patient understand s and agrees. Obesity 488514186 Patient advised again on decreasing food portion sizes as well as increasing exercise by walking or working out in a pool if necessary. Again advised of possible benefit from participat ing in Weight [employer] or similar support group. Will continue to monitor weight loss at follow up visits. Patient understand s and agrees. Gastroesop hageal reflux disease 491685802 Well-contr olled with current PPI regimen. To continue the same in addition to continuing lifestyle changes. Patient to inform office if symptoms recur. Patient understand s and agrees. History of polyp of colon 511713156 Pt s/p colonoscop y sig for TA in 2011. Risks of missed polyps explained to pt. For repeat colonoscop y in 2016. Pt underastan ds and agrees. Generalize d abdominal pain 580382956 Etiology uncertain. S/p EGD & colonoscop y in 2011. Also advised pt to keep a food journal if symptoms recur. If symptoms recur to call office for possible evaluation w/ repeat EGD and colonoscop y. Pt understand s and agrees. [id number] ANN-MARIE BLANCO MD COL_DESK [address] GI [address] [place] [address] 04/24/2015 10:33:30 04/24/2015 11:48:16 Obesity 352126755 E66.9 Advised patient on decreasing food portion sizes. Advised patient that a food portion is ~ the size of the palm of her hand and ~2 inches high. Also encouraged patient to increase exercise by walking or working out in a pool if necessary. Will continue to monitor weight at follow up visits. Patient understand s and agrees. Epigastric pain 23185899 R10.13 Likely secondary to GERD however cannot rule out possible component of functional dyspepsia. Starting trial of PPI p.o. q. a.m. Also instructed patient on GERD lifestyle modificati ons. Pending response may require EGD to rule out GERD complicati ons. Patient understand s and agrees. Gastroesop hageal reflux disease 771374013 K21.9 S/p increasing dose of current PPI to BID without adequate response. Will change to different PPI. If no improvemen t may require EGD. Generalize d abdominal pain 641805527 R10.84 Resolved. To treat obesity as above. Also advised pt to keep a food journal if symptoms recur. If symptoms recur to call office for possible evaluation w/ imaging studies. Pt understand s and agrees. Diarrhea 56518111 R19.7 Much improved. Likely multifacto rial in [...] and agrees. History of polyp of colon 921061897 Z86.010 Pt s/p colonoscop y sig for TA in 2011. Risks of missed polyps explained to pt. For repeat colonoscop y in 2017. Pt underastan ds and agrees. Osteoporosis 55034970 M8 1.0 Due to risk of osteoporos is and patient's need for long-term PPI therapy, suggest bone density study to rule out osteopenia /osteoporo sis. Patient advised to continue Calcium + Vitamin D BID. Last BDS in 2013. Will schedule for bone density study with further recommenda tions pending results. [id number] BRAN GRAHAM MD COL_DESK [address] [place] [address] 07/07/2015 10:40:08 07/07/2015 11:24:01 Migraine 94856071 G43.909 Depressive disorder 3548 9007 F32.9 Anxiety disorder 1497318 06 F41.9 Essential hypertension 56321906 I10 Intracrani al meningioma 604698019 D32.0 Tremor 32650406 R25.1 [id number] BRAN GRAHAM MD COL_DESK 12 [address]UR[address] [place] [place] [address] 11/30/2015 10:04:34 11/30/2015 10:38:32 Osteoporosis 22943435 M81.0 Generalize d abdominal pain 165439672 R10.84 Depressive disorder 3548 9007 F32.9 Anxiety disorder 9544290 06 F41.9 Migraine 49946506 G43.90 9 Intracrani al meningioma 819267816 D32.0 [id number] ANN-MARIE BLANCO MD [facility] [address] [place] [address] 01/22/2016 09:27:38 01/22/2016 11:11:48 Gastroesophageal reflux disease 405262142 K21.9 Well controlled with Nexium 40 mg qd 30 min before meals. To cont the same. To continue the same in addition to continuing lifestyle changes. Patient to inform office if symptoms recur. Patient understand s and agrees. Obesity 029352686 E66.9 BMI: 37.6 Prior visit pt at BMI 39.2 in 228.2 lbs. Pt has lost ~10 lbs since last visit. To cont on decreasing food portion sizes and exercising in pool and golfing. Spoke to pt about weight loss sx with Dr. Echevarria. Will continue to monitor weight at follow up visits. Patient understand s and agrees. Epigastric pain 27197277 R10.13 Resolved. To cont as above. Patient understand s and agrees. Diarrhea 69035548 R19.7 No improvemen t - see HPI. [...] response. Pt understand s and agrees. Osteoporosis 09451227 M8 1.0 Last visit, we ordered a BDS - do not see results. To cont calcium and vit-D supplement . Will check records further / reorder study. Pt understand s and agrees. Nausea 045634999 R11.0 Occasional symptoms. ? Secondary to PUD [...] and agrees. History of polyp of colon 028267677 Z86.010 Pt s/p colonoscop y sig for TA in 2011. Risks of missed polyps explained to pt. For repeat colonoscop y in 2017. Pt understand s and agrees. [id number] ANN-MARIE BLANCO MD [facility] [address] [place] [address] 07/15/2016 09:54:00 07/15/2016 11:23:56 Gastroesophageal reflux disease 760185084 K21.9 Well controlled with Nexium 40 mg qd 30 min before meals however due to possible diarrhea as s/e will d/c and start a trial of Dexilant 60 mg qAM.Furthe r recommenda tions pending response to therapy as well as colonoscop y and lab results +/- EGD is TTG positive Abdominal pain 62026863 R10.9 Likely multifacto rial in origin with a component secondary to patient's diarrhea.? Lactose intoleranc e.Await response to new dietary regimen including avoidance of coffee and lactose.Al so await colonoscop y results. Further recommenda tions to follow.May require initiation of antispasmo dic. Abdominal bloating 62430 0661 R14.0 Symptoms still persist despite attempts to [...] . Pt understand s and agrees. Diarrhea 80325115 R19.7 No improvemen t - see HPI. [...] & results.Pt understand s and agrees. Obesity 355133046 E66.9 Patient admits to a very sedentary [...] agrees. Screening for malignant neoplasm of colon 208702867 Z12.11 S/p colonoscop y in 2011 significan t for TA..Will schedule for a screening/ surveillan ce colonoscop y with future recommenda tions pending results. Risks of missed polyps, bleeding, pain & perforatio n explained to the pt. Pt understand s and agrees. History of polyp of colon 428351856 Z86.010 Pt s/p colonoscop y sig for TA in 2011. Risks of missed polyps explained to pt.For repeat colonoscop y now.Pt understand s and agrees. [id number] ANN-MARIE BLANCO MD [facility] [address] [place] [address] 11/15/2016 11:43:37 11/15/2016 14:03:40 Diarrhea 06028209 R19.7 Improved following dietary changes.Diane booth multifacto [...] understand s and agrees. Polyp of colon 96149064 K63.5 Pt s/p colonoscop y 07/2016 sig for TA. Risks of missed polyps explained to pt. For repeat colonoscop y in ~07/2021. Pt understand s and agrees. Gastroesop hageal reflux disease 251449767 K21.9 Assoc w/ wine & [place] food ingestion despite Omeprazole 40 mg qD.To cont PPI- BID.To call if breakthrou gh symptoms continue/w orsen. Nausea 578591881 R11.0 Resolved. ? Secondary to PUD vs GERD vs dietary indiscreti ons vs gastropare sis. To continue PPI therapy. To call office if symptoms recur. In addition if symptoms recur will consider requesting thyroid studies and celiac panel to rule out concomitan t illnesses. Abdominal pain 47497628 R10.9 Resolved. Etiology uncertain. Also advised pt to keep a food journal if symptoms recur. If symptoms recur to call office for possible evaluation w/ imaging studies. Pt understand s and agrees. Obesity 740517650 E66.9 Patient admits to a very sedentary lifestyle as well as depression which decreases her activity.P t requesting informatio n about the gastric sleeve option.Dis cussed at length with pt.Referri ng to Dr. Echevarria. [id number] BRAN GRAHAM MD [facility] [address] [place] [address] 03/31/2017 14:55:45 03/31/2017 16:19:02 Osteoporosis 15713129 M81.0 Generalize d abdominal pain 657407188 R10.84 Depressive disorder 3548 9007 F32.9 Anxiety disorder 5483073 06 F41.9 Migraine 86177609 G43.90 9 Intracrani al meningioma 758661388 D32.0 Tremor 66921729 R25.1 Obesity 763853158 E66.9 Insomnia 379763571 G47.0 0 [id number] BRAN GRAHAM MD [facility] [address] [place] [address] 12/22/2017 09:36:44 12/22/2017 10:11:18 Osteoporosis 38657634 M81.0 Generalize d abdominal pain 848266305 R10.84 Depressive disorder 3548 9007 F32.9 Anxiety disorder 8676498 06 F41.9 Migraine 66065297 G43.90 9 Intracrani al meningioma 317301746 D32.0 Tremor 77603480 R25.1 Obesity 476232220 E66.9 Insomnia 051558751 G47.0 0 [id number] BRAN GRAHAM MD [facility] [address] [place] [address] 01/23/2018 08:44:25 01/23/2018 09:33:38 Osteoporosis 85357371 M81.0 Generalize d abdominal pain 796001544 R10.84 Depressive disorder 3548 9007 F32.9 Anxiety disorder 4824210 06 F41.9 Migraine 62606535 G43.90 9 Intracrani al meningioma 296416629 D32.0 Tremor 18324535 R25.1 Obesity 067106244 E66.9 Insomnia 119048721 G47.0 0 Seizure disorder 6173089 02 G40.955 [id number] CHAZ HURT NP [facility] [address] [place] [address] 03/10/2018 14:22:03 03/10/2018 15:16:03 Abdominal pain 57567976 R10.9 Will check CBC and CT and [...] of the abdomen, bleeding per rectum. Diarrhea 64860493 R19.7 [id number] BRAN GRAHAM MD [facility] [address] [place] [address] 03/11/2018 12:54:27 03/11/2018 13:54:24 Osteoporosis 68384172 M81.0 Anxiety disorder 8003623 06 F41.9 Seizure disorder 0398537 02 G40.909 Generalize d abdominal pain 073279826 R10.84 Depressive disorder 3548 9007 F32.9 Tremor 97421049 R25.1 Migraine 68100123 G43.90 9 Intracrani al meningioma 134632436 D32.0 Obesity 421931085 E66.9 Insomnia 743950387 G47.0 0 [id number] BRAN GRAHAM MD [facility] [address] [place] [address] 04/01/2018 09:55:40 04/01/2018 10:25:46 Osteoporosis 56622095 M81.0 Anxiety disorder 5530206 06 F41.9 Seizure disorder 2853178 02 G40.909 Generalize d abdominal pain 662759376 R10.84 Depressive disorder 3548 9007 F32.9 Tremor 29937799 R25.1 Migraine 51033470 G43.90 9 Intracrani al meningioma 214174311 D32.0 Obesity 731053427 E66.9 Insomnia 974280050 G47.0 0 [id number] ANN-MARIE BLANCO MD [facility] [address] [place] [address] 06/22/2018 15:32:39 06/24/2018 10:42:07 Diarrhea 64164887 R19.7 Watery, explosive, w/ urgency, x~2-3 weeks, [...] well as lab results. Polyp of colon 40725622 K63.5 Pt s/p colonoscop y 07/2016 sig for TA. Risks of missed polyps explained to pt. For repeat colonoscop y in ~07/2021 or sooner PRN. Pt understand s and agrees. Gastroesop hageal reflux disease 975145071 K21.9 Well-contr olled with Nexium 40 mg qAM. To continue the same in addition to continuing lifestyle changes. Patient to inform office if symptoms recur. Patient understand s and agrees. Obesity 310032497 E66.9 BMI = 41, up from 38.6.Pt reports +++ stress over the past year.Patie nt advised again on decreasing food portion sizes as well as increasing exercise by walking or working out in a pool if necessary due to arthritis. Will continue to monitor weight loss at follow up visits. Patient understand s and agrees. Abdominal bloating 68159 9008 R14.0 Symptoms still persist despite attempts [...] . Pt understand s and agrees. Osteoporosis 93743529 M8 1.0 Last BDS was in 2016. [...] study with further recommenda tions pending results. [id number] BRAN GRAHAM MD [facility] [address] [place] [address] 07/23/2018 14:54:08 07/23/2018 15:25:51 Intracranial meningioma 041373220 D32.0 Seizure disorder 9004117 02 G40.909 Anxiety disorder 2207846 06 F41.9 Depressive disorder 3548 9007 F32.9 Tremor 24652691 R25.1 Migraine 28639682 G43.90 9 Obesity 283890512 E66.9 Disorder o f vitamin B12 854548659 E53.8 [id number] BRAN GRAHAM MD [facility] [address] [place] [address] 05/13/2019 09:44:20 05/13/2019 10:24:58 Intracranial meningioma 908057795 D32.0 Depressive disorder 3548 9007 F32.9 Seizure disorder 8171556 02 G40.909 Disorder o f vitamin B12 811983355 E53.8 Anxiety disorder 2740219 06 F41.9 Tremor 39888454 R25.1 Migraine 39674171 G43.90 9 Obesity 921121589 E66.9 [id number] BRAN GRAHAM MD [facility] [address] [place] [address] 09/01/2019 11:23:50 09/01/2019 12:35:29 Intracranial meningioma 812934715 D32.0 Depressive disorder 3548 9007 F32.9 Disorder o f vitamin B12 086618048 E53.8 Seizure disorder 9502320 02 G40.909 Anxiety disorder 7136203 06 F41.9 Tremor 92219861 R25.1 Migraine 49787754 G43.90 9 Obesity 610190693 E66.9 [id number] BRAN GRAHAM MD [facility] [address] [place] [address] 11/11/2019 12:57:58 11/11/2019 14:50:24 Tremor 76417267 R25.1 Intracrani al meningioma 619887046 D32.0 Depressive disorder 3548 9007 F32.9 Seizure disorder 7403055 02 G40.909 Anxiety disorder 7360051 06 F41.9 Migraine 23301130 G43.90 9 Obesity 585117822 E66.9 [id number] ANN-MARIE BLANCO MD [facility] [address] [place] [address] 11/22/2019 10:54:04 11/22/2019 12:19:21 Diarrhea 81623254 R19.7 ~1-3 loose stools daily, +/- fecal [...] literature given previously . Polyp of colon 37886293 K63.5 Pt s/p colonoscop y 07/2016 sig for TA. Risks of missed polyps explained to pt. For repeat colonoscop y in ~07/2021 or sooner PRN. Pt understand s and agrees. Gastroesop hageal reflux disease 021425335 K21.9 Well-contr olled with Omeprazole 40 mg qAM. To continue the same in addition to continuing lifestyle changes. Patient to inform office if symptoms recur. Patient understand s and agrees. Obesity 606441378 E66.9 BMI = 42.9, up from 41, up from 38.6. ~250 lbsPt reports +++ stress over the past year.Patie nt advised again on decreasing food portion sizes as well as increasing exercise by walking or working out in a pool if necessary due to arthritis. Will continue to monitor weight loss at follow up visits. Patient understand s and agrees. Abdominal bloating 71421 9002 R14.0 Symptoms still persist despite attempts to [...] . Pt understand s and agrees. Osteoporosis 43054186 M8 1.0 Last BDS was in 2016. [...] tions pending results. Incontinence of feces 72 493317 R15.9 Etiology likely multifacto rial in origin [...] possible biofeedbac k training. Pre-surgery testing 1104 59719 Z01.89 For COVID testing prior to any outpt GI procedure. Dysphagia 07910303 R13.1 0 Likely secondary to patient's GERD. To continue Omeprazole 40 mg po qAM. Also scheduling for EGD to rule out GERD complicati ons as well as EoE. If patient does not respond to the PPI trial, may also require esophagram to rule out motility disorder. [id number] ANN-MARIE BLANCO MD [facility] [address] [place] [address] 01/10/2020 15:52:14 01/10/2020 16:48:46 Diarrhea 54839320 R19.7 Currently having ~1-2 semi formed BM [...] literature given previously . Polyp of colon 86169559 K63.5 S/p repeat colon 12/01/2019- Neg for colitis, + for a polyp in the rectosigmo id colon.Risk s of missed polyps explained to pt. For repeat colonoscop y in ~5 years or sooner PRN. Pt understand s and agrees. Pt s/p colonoscop y 07/2016 sig for TA. Gastroesop hageal reflux disease 050750638 K21.9 S/p EGD 12/01/2019- Sig for gastritis. Well-contr olled with Omeprazole 40 mg qAM. To continue the same in addition to continuing lifestyle changes. Patient to inform office if symptoms recur. Patient understand s and agrees. Obesity 545380138 E66.9 2' to leg brace, pt not [...] Patient understand s and agrees. Abdominal bloating 97536 6940 R14.0 Much improved. Likely multifacto rial in [...] previously ) understand s and agrees. Osteoporosis 34826192 M8 1.0 Last BDS was in 2016. [...] tions pending results. Incontinence of feces 72 864039 R15.9 Secondary to watery / loose stools as since her symptoms resolved following an increase in fiber in her diet and increasing the bulk of her stool. Advised patient to continue her high fiber diets. Also advised patient to perform anal sphincter strengthen ing exercises several times daily and as needed. Fiber literature given previously . To call office if episodes recur. Dysphagia 65431621 R13.1 0 Resolved. Likely secondary to patient's GERD. To continue Omeprazole 40 mg po qAM. Also scheduling for EGD to rule out GERD complicati ons as well as EoE. If patient does not respond to the PPI trial, may also require esophagram to rule out motility disorder. Fatigue 21609397 R53.83 ? 2' to changed to Dr. Ori Cancino. Requesting copies of lab work. To f/u w/ Dr. Cancino as well. [id number] BRNA GRAHAM MD [facility] [address] [place] [address] 05/12/2020 13:45:36 05/12/2020 14:33:39 Tremor 74385731 R25.1 Intracrani al meningioma 056720363 D32.0 Depressive disorder 3548 9007 F32.9 Seizure disorder 4590745 02 G40.909 Anxiety disorder 2747422 06 F41.9 Migraine 59950880 G43.90 9 Obesity 537443062 E66.9 Memory impairment 488564 006 R41.3 [id number] BRAN GRAHAM MD [facility] [address] [place] [address] 12/22/2020 14:34:50 12/22/2020 15:09:13 Memory impairment 151920555 R41.3 Tremor 36828894 R25.1 Seizure disorder 5005027 02 G40.909 Intracrani al meningioma 116909789 D32.0 Depressive disorder 3548 9007 F32.9 Anxiety disorder 4071135 06 F41.9 Migraine 97670338 G43.90 9 Obesity 232273882 E66.9 [id number] SOCORRO WU APRN [facility] [address] [place] [address] 11/19/2021 09:28:15 11/19/2021 10:06:14 Diarrhea 19248503 R19.7 Improved. Currently having 2-3 formed BM daily w/ Metamucil. 1-2 loose stool episodes a month now. Any loose episodes are assoc w/ dietary indiscreti ons.Advise d patient on increasing dietary fiber as well as avoiding lactose.Fi harika literature given previously . S/p EGD & colonoscop y 11/2019- S/p Neg random bx'sOther w/u including TFT, negative to date. Polyp of colon 55617603 K63.5 S/p repeat colon 12/01/2019- Neg for colitis, + for a polyp in the rectosigmo id colon. Risks of missed polyps explained to pt. For repeat colonoscop y in ~5 years or sooner PRN. Pt understand s and agrees. Pt s/p colonoscop y 07/2016 sig for TA. Gastroesop hageal reflux disease 268849783 K21.9 S/p EGD 12/01/2019- Sig for gastritis. Well-contr olled with Pantoprazo le 40mg qAM. Previously on Omeprazole 40 qAM. To continue the same in addition to continuing lifestyle changes. Patient to inform office if symptoms recur. Patient understand s and agrees. Obesity 931174767 E66.9 BMI = 41.2 no change in weight since last visitPatie nt advised again on decreasing food portion sizes as well as increasing exercise by walking or working out in a pool if necessary due to arthritis. Will continue to monitor weight loss at follow up visits.Emilie caraballo understand s and agrees. Abdominal bloating 71495 9008 R14.0 Much improved. 1-2 episodes a [...] previously ) understand s and agrees. Osteoporosis 66682530 M8 5.88 Last BDS was in 2015. Due to risk of osteoporos is and patient's need for long-term PPI therapy, suggest bone density study to rule out osteopenia /osteoporo sis. Will schedule for bone density study with further recommenda tions pending results. Patient advised to continue Calcium + Vitamin D BID. Incontinence of feces 72 834649 R15.9 Secondary to watery / loose stools [...] To call office if episodes recur. Dysphagia 56351954 R13.1 0 Resolved. Likely secondary to patient's GERD. To continue Pantoprazo le 40 mg po qAM. If symptoms return or worsen may also require esophagram to rule out motility disorder. [id number] ANN-MARIE BLANCO MD [facility] [address] [place] [address] 11/29/2022 13:55:48 11/29/2022 14:42:52 Diarrhea 43231983 R19.7 Improved. Currently having 2-3 formed BM daily w/ Metamucil. 1-2 loose stool episodes a month now. Any loose episodes are assoc w/ dietary indiscreti ons.Advise d patient on increasing dietary fiber as well as avoiding lactose.Fi harika literature given previously . S/p EGD & colonoscop y 11/2019- S/p Neg random bx'sOther w/u including TFT, negative to date. Polyp of colon 60670065 K63.5 S/p repeat colon 12/01/2019- Neg for colitis, + for a polyp in the rectosigmo id colon. Risks of missed polyps explained to pt. For repeat colonoscop y in ~5 years or sooner PRN. Pt understand s and agrees. Pt s/p colonoscop y 07/2016 sig for TA. Gastroesop hageal reflux disease 303744712 K21.9 S/p EGD 12/01/2019- Sig for gastritis. Well-contr olled with Pantoprazo le 40mg qAM. Previously on Omeprazole 40 qAM. To continue the same in addition to continuing lifestyle changes. Patient to inform office if symptoms recur. Patient understand s and agrees. Obesity 725886688 E66.9 Patient advised again on decreasing food portion sizes as well as increasing exercise by walking or working out in a pool if necessary due to arthritis. Will continue to monitor weight loss at follow up visits.Emilie eugenetim understand s and agrees. Abdominal bloating 39698 9008 R14.0 Much improved. 1-2 episodes a [...] previously ) understand s and agrees. Osteoporosis 32261640 M8 5.88 BDS 2021 sig for osteopenic changesDue to risk of osteoporos is and patient's need for long-term PPI therapy, suggest bone density study to rule out osteopenia /osteoporo sis. Will schedule for bone density study with further recommenda tions pending results. Patient advised to continue Calcium + Vitamin D BID. Incontinence of feces 72 466126 R15.9 Secondary to watery / loose stools [...] To call office if episodes recur. Dysphagia 65401928 R13.1 0 Resolved. Likely secondary to patient's GERD. To continue Pantoprazo le 40 mg po qAM. If symptoms return or worsen may also require esophagram to rule out motility disorder. [id number] ANN-MARIE BLANCO MD [facility] [address] [place] [address]. [address] [place] [address] 01/20/2023 13:51:03 01/20/2023 14:47:42 Gastroesophageal reflux disease without esophagitis 525167406 K21.9 + Breakthrou gh symptoms despite Protonix qAM. Improved w/ Pepcid PRN.To take the Pepcid qHS, not PRN.To continue the same in addition to continuing lifestyle changes.[place] to inform office if symptoms recur.Alina ent understand s and agrees. Previously on Omeprazole 40 qAM. Diarrhea 36413183 R19.7 Well controlled w/ Metamucil + protein shake qAM. Having 1-2 soft stools daily.Any loose episodes are assoc w/ dietary indiscreti ons.Advise d patient on increasing dietary fiber as well as avoiding lactose.Fi harika literature given previously . S/p EGD & colonoscop y 11/2019- S/p Neg random bx'sOther w/u including TFT, negative to date. Polyp of colon 68085368 K63.5 S/p repeat colon 12/01/2019- Neg for colitis, + for a polyp in the rectosigmo id colon. Risks of missed polyps explained to pt. For repeat colonoscop y in ~5 years or sooner PRN. Pt understand s and agrees. Pt s/p colonoscop y 07/2016 sig for TA. Obesity 685326673 E66.9 BMI= 41.2, ~240 lbs. S/p ~5 lb wt gain since her last visit.Alina ent advised again on decreasing food portion sizes as well as increasing exercise by walking or working out in a pool if necessary due to arthritis. Will continue to monitor weight loss at follow up visits.Emilie caraballo understand s and agrees. Osteoporosis 05223513 M8 5.88 BDS 2021 sig for osteopenic changesDue to risk of osteoporos is and patient's need for long-term PPI therapy, suggest bone density study to rule out osteopenia /osteoporo sis. Will schedule for bone density study with further recommenda tions pending results. Patient advised to continue Calcium + Vitamin D BID. Incontinence of feces 72 495727 R15.9 Resolved. Advised patient to continue her high fiber diets. Also advised patient to perform anal sphincter strengthen ing exercises several times daily and as needed. Fiber literature given previously . To call office if episodes recur. [id number] ANN-MARIE BLANCO MD [facility] [address] [place] [address] 06/09/2023 13:22:19 06/09/2023 15:08:44 Gastroesophageal reflux disease without esophagitis 280347343 K21.9 Well controlled w/ Protonix 40 mg qAM & Pepcid 40 mg qHS PRN (usually 1-2/wk)To cont the same in addition to continuing lifestyle changes.[place] to inform office if symptoms recur.Alina ent understand s and agrees. Previously on Omeprazole 40 qAM & Protonix qAM only. Diarrhea 34827580 R19.7 Well controlled w/ Metamucil + protein shake qAM. Having 1-2 soft stools daily.Any loose episodes are assoc w/ dietary indiscreti ons.Advise d patient on increasing dietary fiber as well as avoiding lactose.Fi harika literature given previously . S/p EGD & colonoscop y 11/2019- S/p Neg random bx'sOther w/u including TFT, negative to date. Polyp of colon 67558786 K63.5 S/p repeat colon 12/01/2019- Neg for colitis, + for a polyp in the rectosigmo id colon. Risks of missed polyps explained to pt. For repeat colonoscop y in ~5 years or sooner PRN. Pt understand s and agrees. Pt s/p colonoscop y 07/2016 sig for TA. Obesity 644501528 E66.9 BMI= 41.2, ~240 lbs. S/p ~5 lb wt gain since her last visit.Alina wild advised again on decreasing food portion sizes as well as increasing exercise by walking or working out in a pool if necessary due to arthritis. Will continue to monitor weight loss at follow up visits.Emilie caraballo understand s and agrees. Osteoporosis 10631503 M8 5.88 BDS 12/25/2021 sig for osteopenic changesDue to risk of osteoporos is and patient's need for long-term PPI therapy, suggest bone density study to rule out osteopenia /osteoporo sis. Will schedule for bone density study with further recommenda tions pending results. Patient advised to continue Calcium + Vitamin D BID. Incontinence of feces 72 883818 R15.9 S/p recurrence ~2/month.T o keep a food journalTo increase her Metamucil to BID.Advise d patient to continue her high fiber diets. Also advised patient to perform anal sphincter strengthen ing exercises several times daily and as needed. Fiber literature given previously . To call office if episodes recur. Dysphagia 50775764 R13.1 0 Resolved. Likely secondary to patient's [...] Member ID Schilling Member ID Guarantor Name 11/19/2024 1 [place] Silvana Riverok [id number] Silvana Shahid Payam 11/18/2024 2 [employer] (MEDICARE SUPPLEMENT) Silvana Shahid Payam [id number] Silvana Shahid Payam 11/18/2024 1 [place] Silvana Shahid Payam [id number] Silvana Shahid Payam 11/19/2024 2 [employer] (MEDICARE SUPPLEMENT) Silvana Jain Payam [id number] Silvana Jackson Notes Date Note Type Note Provider Name and Address Organization Details Recorded Time 2 text/html DysphagiaReported by PatientHPIFor quality, patient reportsburning. For location, patient reportsthroatandmid esophagus. For severity, patient reportsimprovingandno regurgitation. Gastroenterology General HPIReported by PatientOSTEOPOROSIS Last bone density 01/31/2016 normal bone mineral density.Due for repeat OBESITY - BMI:41.2 ~240 Lbs Reflux/GERDReported by PatientHPIFor symptoms, patient reportsasymptomatic,no difficulty swallowing,no pain swallowing, andno postprandial pain(improved with pantoprazole 40 mg qd). For severity, patient reportsimproving. For context, patient reportsnon-smoker,no drug/alcohol abuse,no drug alcohol withdrawal, andnot related to food/drink. For associated symptoms, patient reportsno frequent coughing,no feeling of fullness/mass in throat,no hoarseness,no food getting stuck,no belching/burping,no vomiting,not vomiting blood,no regurgitation,no shortness of breath,no chest pain,no heartburn,no difficulty swallowing,no pain when swallowing,no bad taste,no decreased appetite,no weight loss,no black/tarry stools,no fatigue, andno throat pain.EGD and colonoscopy with DR Blanco 11/2019 sig for Mild chronic gastritis with features of reactive gastropathy. Negative for Helicobacter pylori, Negative for intestinal metaplasia, No evidence of colitis, microscopic colitis, Hyperplastic polyp in the rectosigmoid colon recommendations to repeat colonoscopy in 5 years. Colorectal PolypReported by PatientHPIFor associated symptoms, patient reportsdiarrheabut reportsno hematochezia,no nausea,no vomiting,normal appetite,no constipation, andno change in stool caliber. For location, (previpous colonoscopy with dr blanco in 07/30/2016impression ta cecum, hyperplastic polyps in sigmoid, x2). DiarrheaReported by PatientHPIFor quality, patient reportsimproving(diarrhea resolvedblood work 07/15/2016iga low:33ttstool culture 02/2018 was negative). For severity, patient reportsmoderate. For onset/timing, patient reportsno nocturnal symptomsand1-3 times a day. For context, patient reportsno one else with similar symptoms,no recent camping,no recent picnic,no possible food sources, andno recent travel. For alleviating factors, patient reportsimodium(probiotics) . For associated symptoms, patient reportsno abdominal pain,no excess gas,no fever,no rash,no joint pain,no weight loss,no nausea,no vomiting,no heartburn,no blood in stool,no mucus in stool,no black or tarry stools,no weakness, andno nutrient deficiency.Pt reports watery diarrhea has improved with Metamucil. 1-2 formed bm a day. Denies sig lactose ingestion. Abdominal PainReported by PatientAbdominal PainFor onset/timing, patient reportsbetter. For associated symptoms, patient reportsno fever,no chills,no blood in the urine,no heartburn, andno shortness of breath. For location, (improved).Pt reports bloating PT is a 81 y/o F with PMHx sig for GERD, colon polyp, HLP, meningioma- s/p brain sx, seizures and osteoporosis who presents for f/u of multiple GI complaints. SOCORRO WU APRN [address] [place], [address], [facility] [place] 11/19/2021 11:00:50 3 text/html DysphagiaReported by PatientHPIFor quality, patient reportsburning. For location, patient reportsthroatandmid esophagus. For severity, patient reportsimprovingandno regurgitation. Gastroenterology General HPIReported by PatientOSTEOPOROSIS Last bone density 01/31/2016 normal bone mineral density.Due for repeat OBESITY - BMI:41.2 ~240 Lbs Reflux/GERDReported by PatientHPIFor symptoms, patient reportsasymptomatic,no difficulty swallowing,no pain swallowing, andno postprandial pain(improved with pantoprazole 40 mg qd). For severity, patient reportsimproving. For context, patient reportsnon-smoker,no drug/alcohol abuse,no drug alcohol withdrawal, andnot related to food/drink. For associated symptoms, patient reportsno frequent coughing,no feeling of fullness/mass in throat,no hoarseness,no food getting stuck,no belching/burping,no vomiting,not vomiting blood,no regurgitation,no shortness of breath,no chest pain,no heartburn,no difficulty swallowing,no pain when swallowing,no bad taste,no decreased appetite,no weight loss,no black/tarry stools,no fatigue, andno throat pain.EGD and colonoscopy with DR Blanco 11/2019 sig for Mild chronic gastritis with features of reactive gastropathy. Negative for Helicobacter pylori, Negative for intestinal metaplasia, No evidence of colitis, microscopic colitis, Hyperplastic polyp in the rectosigmoid colon recommendations to repeat colonoscopy in 5 years. Colorectal PolypReported by PatientHPIFor associated symptoms, patient reportsdiarrheabut reportsno hematochezia,no nausea,no vomiting,normal appetite,no constipation, andno change in stool caliber. For location, (previpous colonoscopy with dr blanco in 07/30/2016impression ta cecum, hyperplastic polyps in sigmoid, x2). DiarrheaReported by PatientHPIFor quality, patient reportsimproving(diarrhea resolvedblood work 07/15/2016iga low:33ttstool culture 02/2018 was negative). For severity, patient reportsmoderate. For onset/timing, patient reportsno nocturnal symptomsand1-3 times a day. For context, patient reportsno one else with similar symptoms,no recent camping,no recent picnic,no possible food sources, andno recent travel. For alleviating factors, patient reportsimodium(probiotics) . For associated symptoms, patient reportsno abdominal pain,no excess gas,no fever,no rash,no joint pain,no weight loss,no nausea,no vomiting,no heartburn,no blood in stool,no mucus in stool,no black or tarry stools,no weakness, andno nutrient deficiency.Pt reports watery diarrhea has improved with Metamucil. 1-2 formed bm a day. Denies sig lactose ingestion. Abdominal PainReported by PatientAbdominal PainFor onset/timing, patient reportsbetter. For associated symptoms, patient reportsno fever,no chills,no blood in the urine,no heartburn, andno shortness of breath. For location, (improved).Pt reports bloating improved PT is a 81 y/o F with PMHx sig for GERD, colon polyp, HLP, meningioma- s/p brain sx, seizures and osteoporosis who presents for f/u of multiple GI complaints. SOCORRO WU APRN [address] [place] [address], [address], [facility] [place] 11/29/2022 15:51:57 3 text/html DysphagiaReported by PatientHPIFor quality, patient reportsburning. For location, patient reportsthroatandmid esophagus. For severity, patient reportsimprovingandno regurgitation. Gastroenterology General HPIReported by PatientOSTEOPOROSIS Last bone density 01/31/2016 normal bone mineral density.Bone density 12/2021 Impression: Osteopenia OBESITY - BMI:41.2 ~240 Lbs Reflux/GERDReported by PatientHPIFor symptoms, patient reportsasymptomatic,no difficulty swallowing,no pain swallowing, andno postprandial pain(improved with pantoprazole 40 mg qd). For severity, patient reportsimproving. For context, patient reportsnon-smoker,no drug/alcohol abuse,no drug alcohol withdrawal, andnot related to food/drink. For associated symptoms, patient reportsno frequent coughing,no feeling of fullness/mass in throat,no hoarseness,no food getting stuck,no belching/burping,no vomiting,not vomiting blood,no regurgitation,no shortness of breath,no chest pain,no heartburn,no difficulty swallowing,no pain when swallowing,no bad taste,no decreased appetite,no weight loss,no black/tarry stools,no fatigue, andno throat pain.EGD and colonoscopy with DR Blanco 11/2019 sig for Mild chronic gastritis with features of reactive gastropathy. Negative for Helicobacter pylori, Negative for intestinal metaplasia, No evidence of colitis, microscopic colitis, Hyperplastic polyp in the rectosigmoid colon recommendations to repeat colonoscopy in 5 years. Colorectal PolypReported by PatientHPIFor associated symptoms, patient reportsdiarrheabut reportsno hematochezia,no nausea,no vomiting,normal appetite,no constipation, andno change in stool caliber. For location, (previpous colonoscopy with dr blanco in 07/30/2016impression ta cecum, hyperplastic polyps in sigmoid, x2). DiarrheaReported by PatientHPIFor quality, patient reportsimproving(diarrhea resolvedblood work 07/15/2016iga low:33ttstool culture 02/2018 was negative). For severity, patient reportsmoderate. For onset/timing, patient reportsno nocturnal symptomsand1-3 times a day. For context, patient reportsno one else with similar symptoms,no recent camping,no recent picnic,no possible food sources, andno recent travel. For alleviating factors, patient reportsimodium(probiotics) . For associated symptoms, patient reportsno abdominal pain,no excess gas,no fever,no rash,no joint pain,no weight loss,no nausea,no vomiting,no heartburn,no blood in stool,no mucus in stool,no black or tarry stools,no weakness, andno nutrient deficiency.Pt reports watery diarrhea has improved with Metamucil. 1-2 formed bm a day. Denies sig lactose ingestion. Abdominal PainReported by PatientAbdominal PainFor onset/timing, patient reportsbetter. For associated symptoms, patient reportsno fever,no chills,no blood in the urine,no heartburn, andno shortness of breath. For location, (improved).Pt reports bloating improved PT is an 82 y/o F with PMHx sig for GERD, colon polyp, HLP, meningioma- s/p brain sx, seizures and osteoporosis who presents for f/u of multiple GI complaints. ANN-MARIE BLANCO MD [address] [place], [address], [facility] [place] 02/07/2023 16:58:22 4 text/html DysphagiaReported by PatientHPIFor quality, patient reportsburning. For location, patient reportsthroatandmid esophagus. For severity, patient reportsimprovingandno regurgitation. Gastroenterology General HPIReported by PatientOSTEOPOROSIS Last bone density 01/31/2016 normal bone mineral density.Bone density 12/2021 Impression: Osteopenia OBESITY - BMI:41.2 ~240 Lbs Reflux/GERDReported by PatientHPIFor symptoms, patient reportsasymptomatic,no difficulty swallowing,no pain swallowing, andno postprandial pain(improved with pantoprazole 40 mg qd). For severity, patient reportsimproving. For context, patient reportsnon-smoker,no drug/alcohol abuse,no drug alcohol withdrawal, andnot related to food/drink. For associated symptoms, patient reportsno frequent coughing,no feeling of fullness/mass in throat,no hoarseness,no food getting stuck,no belching/burping,no vomiting,not vomiting blood,no regurgitation,no shortness of breath,no chest pain,no heartburn,no difficulty swallowing,no pain when swallowing,no bad taste,no decreased appetite,no weight loss,no black/tarry stools,no fatigue, andno throat pain.EGD and colonoscopy with DR Blanco 11/2019 sig for Mild chronic gastritis with features of reactive gastropathy. Negative for Helicobacter pylori, Negative for intestinal metaplasia, No evidence of colitis, microscopic colitis, Hyperplastic polyp in the rectosigmoid colon recommendations to repeat colonoscopy in 5 years. Colorectal PolypReported by PatientHPIFor associated symptoms, patient reportsdiarrheabut reportsno hematochezia,no nausea,no vomiting,normal appetite,no constipation, andno change in stool caliber. For location, (previpous colonoscopy with dr blanco in 07/30/2016impression ta cecum, hyperplastic polyps in sigmoid, x2). DiarrheaReported by PatientHPIFor quality, patient reportsimproving(diarrhea resolvedblood work 07/15/2016iga low:33ttstool culture 02/2018 was negative). For severity, patient reportsmoderate. For onset/timing, patient reportsno nocturnal symptomsand1-3 times a day. For context, patient reportsno one else with similar symptoms,no recent camping,no recent picnic,no possible food sources, andno recent travel. For alleviating factors, patient reportsimodium(probiotics) . For associated symptoms, patient reportsno abdominal pain,no excess gas,no fever,no rash,no joint pain,no weight loss,no nausea,no vomiting,no heartburn,no blood in stool,no mucus in stool,no black or tarry stools,no weakness, andno nutrient deficiency.Pt reports watery diarrhea has improved with Metamucil. 1-2 formed bm a day. Denies sig lactose ingestion. Abdominal PainReported by PatientAbdominal PainFor onset/timing, patient reportsbetter. For associated symptoms, patient reportsno fever,no chills,no blood in the urine,no heartburn, andno shortness of breath. For location, (improved).Pt reports bloating improved PT is an 82 y/o F with PMHx sig for GERD, colon polyp, HLP, meningioma- s/p brain sx, seizures and osteoporosis who presents for f/u of multiple GI complaints. ANN-MARIE BLANCO MD [facility] [place], [address], [facility] - [facility] [place] 07/24/2023 13:47:18 OBGyn Episode No OBEpisode recorded.
--- OUTSIDE RECORDS SUMMARY | 2025-02-11 01:47 | XMS_ITS | Patient Health Record ---
Author Organization [facility] Address [address] [place] [address] [place] [id number] Support Name Relationship Address Phone JAYJAY JACKSON Guarantor Unknown [phone] Allergies No Known Allergies Reason For Referral [...] Status W/U Status Risk Notes Problem Hypothyroidism (46735176) Hypothyroidism, unspecified (E03.9) Active confirmed Problem Essential tremor (787610255) Essential tremor (G25.0) Active confirmed Problem Essential hypertension (84243371) Essential hypertension (I10) Active confirmed Problem Gastroesophageal reflux disease without esophagitis (124287105) Gastroesophageal reflux disease without esophagitis (K21.9) Active confirmed Problem Depressive disorder (disorder) (35061496) Depression, unspecified depression type (F32.9) Active confirmed Problem Insomnia disorder related to another mental disorder (06676268) Psychophysiological insomnia (F51.04) Active confirmed Problem Mixed hyperlipidemia (442067321) Hyperlipemia, mixed (E78.2) Active confirmed Plan Of Treatment Pending Test Test Name Order Date Chest X-ray PA and lateral 06/06/2020 Urinalysis, Complete 06/06/2020 Urine Culture and Sensitivity 06/06/2020 Insurance Providers Payer Name Payer Address Payer Phone Subscriber Number Group Number Insured Name Patient Relationship to Insured Coverage Start Date Coverage End Date Medicare of [place] [employer] [address] [address] [place] [address] [id number] JAYJAY JACKSON Self - patient is the insured [facility] Medicare Supplement [address] [place] [phone] [id number] JAYJAY JACKSON Self - patient is the insured Medical (General) History Medical History History ICD Code Hypertension Hyperlipidemia Hypothyroid Depression Surgical History Surgery Date(Month/Year) menningioma
--- OUTSIDE RECORDS SUMMARY | 2025-02-11 01:47 | XMS_ITS | Patient Health Record ---
Author Organization [facility] Address [address] [address] Care Team Providers Care Progressive Die Maker Name Role Phone Mark AGUERO, Artemio Primary Care Provider U Ree Fernandez Unavailable [phone] Sandy Gomez APRN Unavailable Unavailabl e Allergies Allergen (clinical drug ingredient) Drug/Non Drug Allergy documented on EMR Reaction Allergy Type Onset Date Status Cortisporin itching Drug Allergy Activ e Reason For Referral No Information Medications Medication SIG (Take, Route, Frequency, Duration) Notes Start Date End Date Status Losartan Potassium 50 MG Tablet 1 tablet Orally Once a day Active Paxil 30 MG Tablet 1 tablet in the morn ing Orally Once a day Active Simvastatin 40 MG Tablet 1 tablet in the evening Orally Once a day; Duration: 30 day(s) Active Vitamin B12 100 MCG Tablet one Orally Once a day Active Social History Tobacco Use: Social History Observation Description Date Details (start date - stop date) Never Smoker NA - NA Social History Drugs/Alcohol: Social Info Question Answer Notes Alcohol Screen Did you have a drink containing alcohol in the past year? Yes How often did you have a drink containing alcohol in the past year? 4 or more times a week (4 points) How many drinks did you have on a typical day when you were drinking in the past year? 1 or 2 drinks (0 point) How often did you have 6 or more drinks on one occasion in the past year? 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 Caffeine: 1-2 cups per day Born: [place] Problems Problem Type SNOMED Code ICD Code Onset Dates Problem Status W/U Status Risk Notes Problem Moderate recurrent major depression (30777736) Major depressive disorder, recurrent, moderate (F33.1) Active confirmed Problem Obstructive sleep apnea of adult (7085238973056) Obstructive sleep apnea (adult) (pediatric) (G47.33) Active confirmed Problem Essential hypertension (19251032) Essential (primary) hypertension (I10) Active confirmed Problem Educated about weight management (739020353) Dietary counseling and surveillance (Z71.3) Active confirmed Plan Of Treatment No Information Insurance Providers Payer Name Payer Address Payer Phone Subscriber Number Group Number Insured Name Patient Relationship to Insured Coverage Start Date Coverage End Date Medicare Part B [facility] [id number] Payam Silvana Self - patient is the insured [facility] [id number] Silvana Hare Self - patient is the insured Medical (General) History Medical History History ICD Code hypertension moderate depression anxiety disorder cognitive dysfunction mod ANUSHA, RDI 25.2, desat 87%, BiPAP 13/9 cmH2O, PSG 08/2016 BiPAP 14/10 cmH2O, 09/2016 BiPAP 16/12 cmH2O, 10/2016 Surgical History Surgery Date(Month/Year) tonsillectomy and adenoidectomy 03/1947 bunionectomy 03/2004 sinus surgery 03/2007 breast augmentation 03/2007 right TKA 03/2014
--- OUTSIDE RECORDS SUMMARY | 2025-02-11 01:47 | XMS_ITS | Encounter Summary ---
Author Organization [facility] Address [address] [place] [address] Care Team Providers Care Geospatial Systems Integrator Name Role Phone Jose Norton MD Primary Care Provider [phone] Encounter Details Date Type Department Care Team (Late st Contact Info) Description 05/13/2024 Abstract [facility], [address] [place] [address] Robe Mendoza MA Social History Tobacco Use [...] st Contact Info) Description 02/14/2025 3:20 PM FIELD SALES CONSULTANT Appointment [facility] [address] [place], [place] [address] Wade Sky MD [facility] [address] [place] [address] 06/24/2025 2:20 PM CDT Office Visit [facility] - [facility] [address] [facility], [address] [place] [address] Monet Beltran MD [address] [place] [address] 07/29/2025 11:30 AM CDT Office Visit [facility] [address] Sadie Villasenor MD [facility] [address] [place] [address] documented as of this encounter Procedures Procedure [...] on filedocumented in this encounter Care Teams Geospatial Systems Integrator Relationship Specialty Start Date End Date Jose Norton MD [address] [place] [address] PCP - General FAMILY PRACTICE 02/13/24 documented as of this encounter
--- OUTSIDE RECORDS SUMMARY | 2025-02-11 01:47 | XMS_ITS | Data Portability ---
Author Organization [place] [facility] [place], Main Office Address [place] [address] [address] Assessment No assessment recorded. Plan of Treatment [...] cter) . Not Available [facility] [address], [place], [address], 06/03/2023 01:50:29 05/30/1906/03/2023 SURES WAB(R ) ADV BACTE RIAL VAGIN OSIS (BV), TMA sureswab(R) adv bacterial vaginosis (bv), tma NEGATI VE negati ve normal Not Available [facility] [address], [place], [address], 06/03/2023 02:09:02 05/30/19 24 06/03/2023 SURES WAB(R ) ADV MADISON DA VAGIN ITIS (CV), TMA alfredo species NOT DETECT ED not detect ed normal Not Available [facility] [address], [place], [address], 06/03/2023 02:09:03 05/30/19 24 06/03/2023 SURES WAB(R [...] resul t. Not Available [facility] [address], [place], [address], 06/03/2023 02:09:03 05/30/19 24 06/03/2023 CULTU RE, [...] port Tube. Not Available [facility] [address], [place], [address], 06/03/2023 02:13:30 05/30/19 24 05/30/2023 LIQUI D-BAS ED pdf ACF Not Available [facility] [address] [facility] [address], [place], [address], 06/05/2023 18:34:22 06/17/19 24 06/17/2023 PATHO LOGY pdf ACF Not Available [facility] [address], [place], [address], 06/22/2023 18:11:11 06/13/19 24 06/05/2023 US, pelvi s, trans abdom inal + trans vagin al No observ ation record ed. [facility] Not Available 2023 11:32:16 Result Notes None recorded. Medical Equipment None Reported. [...] ICD10 Code Diagnosis IMO Codes Diagnosis Note 2157 Rosaura Song MD Main Office [address] [facility] [address] [place] [address] 05/30/2023 14:31:48 07/09/2023 10:21:30 2261 Rosaura Song MD Main Office [address] [facility] [address] [place] [address] 06/17/2023 09:59:46 06/17/2023 12:49:35 2505 Rosaura Song MD Main Office [address] [facility] [address] [place] [address] 07/15/2023 13:36:49 07/15/2023 14:44:17 Health Concerns Section Related Observation LastModified by Organization Detai ls LastModified Time None Recorded Concern Status LastModified by Organization Details LastModified Time None Recorded Advance Directives Directive None Recorded Payers Insurance Date Sequence Insurance Name Policy Number Policy Schilling Covered Member ID Schilling Member ID Guarantor Name 09/09/2023 2 [employer] (MEDICARE SUPPLEMENT) Silvana Hare [id number] Silvana Hare 12/29/2024 1 [place] Silvana Hare [id number] Silvana Hare OBGyn Episode No OBEpisode recorded.
--- OUTSIDE RECORDS SUMMARY | 2025-02-11 01:47 | XMS_ITS | Clinical Summary ---
Author Organization [facility] Address [address] [place] [address] Care Team Providers Care Quill Winder Name Role Phone Jose Norton MD Primary Care Provider [phone] Allergies Active Allergy Reactions Criticality Noted Date Comments Cefaclor Myalgias 09/03/2024 Ciprofloxacin Itching,Swelling,Redness High 07/27/19 23 Medications levothyroxine (SYNTHROID) 25 MCG tablet Take 1 tablet (25 mcg total) by mouth daily. Active PARoxetine (PAXIL) 30 MG tablet Take 1 tablet (30 mg total) by mouth. 4 Active rosuvastatin (CRESTOR) 40 MG tablet Take 1 tablet (40 mg total) by mouth daily. Active aspirin 81 MG chewable tablet Chew 1 tablet (81 mg total) by mouth daily. Active carvedilol (COREG) 6.25 MG tablet Take 1 tablet (6.25 mg total) by mouth 2 (two) times daily. 180 tablet 5 Active primidone (MYSOLINE) 250 MG tabletIndicati ons:Essential tremor Take 1 tablet (250 mg total) by mouth nightly at bedtime. 90 tablet 3 5 Active lamoTRIgine (LAMICTAL) 100 MG tabletIndicati ons:Essential tremor Take 1 tablet (100 mg total) by mouth 2 (two) times daily. 180 tablet 3 5 08/25/19 26 Active primidone (MYSOLINE) 50 MG tabletIndicati ons:Essential tremor Take 1 tablet (50 mg total) by mouth every morning. 90 tablet 3 5 12/23/19 26 Active omeprazole (PRILOSEC) 20 MG capsule Take 1 capsule (20 mg total) by mouth daily. Active losartan (COZAAR) 50 MG tablet DAILY Active losartan (COZAAR) 100 MG tablet Take 1 tablet (100 mg total) by mouth daily. 30 tablet 2 5 02/05/20 25 Discontinued esomeprazole (NEXIUM) 40 MG capsule 1 capsule (40 mg total) daily. 02/05/20 25 Discontinued Active Problems Problem Noted Date Diagnosed Date Intervertebral disc stenosis of neural canal of cervical region 10/18/2024 Depression, unspecified depression type 08/25/19 Essential tremor 08/24/2024 Gastroesophageal reflux disease without esophagi tis 08/24/2024 Hypothyroidism, unspecified 08/24/2024 Psychophysiological insomnia 08/24/2024 Dysfunction of left eustachian tube 06/23/2024 Chronic sinusitis 06/22/2024 Anxiety 07/03/2023 Atrial fibrillation 07/03/2023 Epilepsy 07/03/2023 Essential hypertension 07/03/2023 Mixed hyperlipidemia 07/03/2023 Obesity 07/03/2023 Prediabetes 07/03/2023 Sleep apnea 07/03/2023 Dizziness 04/28/2023 Encounters Date Type Department Care Team Description 02/04/2025 11:45 AM CUSTOMER MARKETING ASSISTANT Office Visit [facility] [address] Sadie Villasenor MD Lipids (6 MO FU///) 02/04/2025 Travel 12/22/2024 11:40 AM CDT [facility] [address], [address] [place] [address] Monet Bell MD Recheck 12/22/2024 Travel 12/10/2024 Hospital Encounter [facility] [place] [address] [id number] Patria Clark MD 11/29/2024 Results [facility] [address] [place] [address] Monet Bell MD MRI BRAIN WWO CON 11/26/2024 2:51 PM CDT - 11/26/2024 11:59 PM CDT Hospital Encounter [facility] Open MRI [address] [place] [address] Monet Bell MD Discharge Disposition: Home or Self Care (Routine Discharge) 11/26/2024 Travel from Last 3 Months Immunizations Immunization Administration Dates Next Due Fluzone High Dose (IIV, triv alent, 0.5mL) 01/08/2018,12/22/2017,01/17/2017,2014,12/22/2013 Influenza (Generic) 01/08/2014, 2,01/14/2011,2009,12/20/2008,01/14/2008 Influenza Adult (Generic) 01/22/2017,02/06/2016 Pneumococcal (Pneumovax 23) 03/24/2010, 0 Pneumococcal (Prevnar 13) 02/26/2017 Zoster (Zostavax) [address]281 Unt/0.65Ml 03/24/2002 Family History Medical History Relation Comments Depression Father Early Hearing Loss Father No Known Problems Mother Arthritis Sister 1 No Known Problems Sister 2 No Known Problems Sister 3 No Known Problems Sister 4 Hypertension Sister 5 Relation Status Comments Father Mother Sister 1 Alive Sister 2 Alive Sister 3 Alive Sister 4 Alive Sister 5 Alive Social History Tobacco Use Types Packs/Day Years Used Date Smoking Tobacco: Former Cigarettes Q uit: 1974 Passive Smoke Exposure: Past Smokeless Tobacco: Never Tobacco Cessation:Counseling Given: Not Answered Alcohol Use Standard Drinks/Week Comments Yes 16.7 (1 standard drink = 0.6 oz pure alcohol) 7/8. PHQ-2 Answer Date Recorded Patient Health Questionnaire-2 Score 0 09/28/2024 Comments No Sex and Gender Information Value Date Recorded Sex Assigned at Female 09/13/2024 1:50 PM CDT Legal Sex Female 5:49 PM CDT Gender Identity Not on file Sexual Orientation Not on file Last Filed Vital Signs Vital Sign Reading Time Taken Comments Blood Pressure 120/82 02/04/2025 11:50 AM CUSTOMER MARKETING ASSISTANT Pulse 86 02/04/2025 11:50 AM CUSTOMER MARKETING ASSISTANT Temperature 36.4 C (97.6 F) 12/22/2024 11:58 AM CDT Respiratory Rate 18 12/22/2024 11:58 AM CDT Oxygen Saturation 94% 02/04/2025 11:50 AM CUSTOMER MARKETING ASSISTANT Inhaled Oxygen Concentration - - Weight 108.9 kg (240 lb) 02/04/2025 11:50 AM CUSTOMER MARKETING ASSISTANT Height 162.6 cm (5' 4) 02/04/2025 11:50 AM CUSTOMER MARKETING ASSISTANT Body Mass Index 41.2 02/04/2025 11:50 AM CUSTOMER MARKETING ASSISTANT Plan of Treatment Upcoming Encounters Date Type Department Care Team (Late st Contact Info) Description 02/14/2025 3:20 PM CUSTOMER MARKETING ASSISTANT Appointment [facility] Mammography [address], [place] [id number] Wade Sky MD [facility] [address] [place] [address] 06/24/2025 2:20 PM CDT Office Visit [facility] - [facility] [address], [address] [place] [phone] Monet Bell MD [address] [place] [address] 07/29/2025 11:30 AM CDT Office Visit [facility] [phone] Sadie Villasenor MD [address] [place] [address] Health Maintenance Due Date Last Done Comments DTaP, Tdap and Td Vaccines (1 - Tdap) 1961 Zoster Vaccines (2 of 3) 05/19/2002 03/24/2002 Annual Medicare Wellness Visit 11/03/2007 Dexa Scan (General) 11/03/2007 RSV Immunization or 60+ Years (1 - 1-dose 75+ series) 2017 COVID-19 Vaccine (2 - season) 2025 01/10/2025 Pneumococcal Vaccine: 50+ Years Completed 02/26/2017, 03/24/2010, 01/22/2010 PHQ-2 (Physician Celoron) Completed 09/28/2024 Influenza Adult Completed 12/24/2024, 12/22, 12/22/2017, Additional history exists Hepatitis A Vaccines Aged Out No long er eligible based on patient's age to complete this topic Meningococcal B Vaccine Aged Out No l onger eligible based on patient's age to complete this topic Meningococcal Vaccine Aged Out No frederick edgard eligible based on patient's age to complete this topic RSV Immunizations Under 20 Months Aged Out No longer eligible based on patient's age to complete this topic Procedures Procedure Name Priority Date/Time Associated Diagnosis Comments MRI BRAIN WWO CON Routine 11/26/2024 3:3 9 PM CDT Hyperreflexia from Last 3 Months Results * MRI BRAIN WWO CON (11/26/2024 3:39 PM CDT) Anatomical Region Laterality Modality Head Magnetic Resonan ce 11/27/2024 5:43 PM CDT Impressions 11/27/2024 5:45 PM CDT IMPRESSION: 1. No acute intracranial abnormality. 2. Mild to moderate global cerebral volume loss and findings of chronic small vessel ischemic change. 3. Prior right hemicraniotomy with volume loss involving the anterior inferior right frontal lobe region. No abnormally enhancing brain parenchyma or mass in this region, to suggest residual mass. Referred By: MONET BELL Interpreted By: Sascha Fishman MD, 11/27/2024 5:43 PM Narrative 11/27/2024 5:45 PM CDT [address] [place] [address] EXAMINATION: MRI BRAIN [facility], 11/27/2024 5:43 PM TECHNIQUE: Multiplanar multisequence magnetic resonance images of the brain were obtained before and after the administration of 20 mL of Dotarem injected through the IV, without evidence of adverse reaction. HISTORY: Head pressure for 2 weeks, history of meningioma removed in 2019. Tremors COMPARISON: None available FINDINGS: There is no restricted diffusion to suggest an acute infarction. No hemorrhagic focus of susceptibility. Mild to moderate global cerebral volume loss with ex vacuo dilatation of ventricles and cerebral sulci. Scattered subcortical and periventricular white matter T2 FLAIR hyperintensities that are nonspecific but most commonly seen in setting of chronic small vessel ischemic change. Prior right hemicraniotomy with volume loss involving the anterior inferior right frontal lobe region. No abnormally enhancing brain parenchymal or mass in this region. The sella, callosal, pineal, and craniovertebral junction regions appear within normal limits. No extra-axial collection. The basal cisterns appear normal. The proximal intracranial arterial flow voids have a normal appearance. Prior bilateral ocular lens extractions with prosthetic lens implantation. Paranasal sinuses are well-aerated. Small to medium left mastoid air cell fluid. The right mastoid air cells are well-aerated. Procedure Note Ssacha Fishman MD - 11/27/[address] [address] EXAMINATION: MRI BRAIN [facility], 11/27/2024 5:43 PM TECHNIQUE: Multiplanar multisequence magnetic resonance images of thebrain were obtained before and after the administration of 20 mL ofDotarem injected through the IV, without evidence of adverse reaction. HISTORY: Head pressure for 2 weeks, history of meningioma removed in 2019.Tremors COMPARISON: None available FINDINGS: There is no restricted diffusion to suggest an acute infarction.No hemorrhagic focus of susceptibility. Mild to moderate global cerebralvolume loss with ex vacuo dilatation of ventricles and cerebral sulci.Scattered subcortical and periventricular white matter T2 FLAIRhyperintensities that are nonspecific but most commonly seen in setting ofchronic small vessel ischemic change. Prior right hemicraniotomy withvolume loss involving the anterior inferior right frontal lobe region. Noabnormally enhancing brain parenchymal or mass in this region. The sella,callosal, pineal, and craniovertebral junction regions appear withinnormal limits. No extra-axial collection. The basal cisterns appear normal. Theproximal intracranial arterial flow voids have a normal appearance. Priorbilateral ocular lens extractions with prosthetic lens implantation.Paranasal sinuses are well-aerated. Small to medium left mastoid air cellfluid. The right mastoid air cells are well-aerated. IMPRESSION: 1. No acute intracranial abnormality. 2. Mild to moderate global cerebral volume loss and findings of chronicsmall vessel ischemic change. 3. Prior right hemicraniotomy with volume loss involving the anteriorinferior right frontal lobe region. No abnormally enhancing brainparenchyma or mass in this region, to suggest residual mass. Referred By: MONET BELL Interpreted By: Sascha Fishman MD, 11/27/2024 5:43 PM Monet Bell MD MRI Final Re sult from Last 3 Months Insurance MEDICARE [facility] Care Teams Quill Winder Relationship Specialty Start Date End Date Jose Norton MD [address] [phone] PCP - General FAMILY PRACTICE 02/13/24
--- NOTE | 2025-02-11 06:33 | WPDHPUPDATE1 ---
History and Physical Update Update Date/Time: 02/11/25 06:33 History and Physical has been reviewed, including an updated exam of the patient. There are NO changes in the patient's condition. Risks, benefits, and alternatives have been discussed and questions answered. Patient agrees to proceed with procedure.
[2025-02-11 12:10] VITALS: BP 137/86; PULSE 80; RESP 16; TEMP 36.6; O2SAT 91
[2025-02-11] MEDS: LACTATED RINGERS 1,000 ML 30 ML IV CONT (12:45)
[2025-02-11] MEDS: ACETAMINOPHEN 500 MG TABLET 1000 MG PO (12:50)
--- NOTE | 2025-02-11 13:59 | WPDANESEPPF ---
Anes - Initial Pre Proc Eval Procedure: Operation Date: 02/11/25 15:30 Proposed Procedures p Hysteroscopy, Dilation and Curettage - Wade Curran MD Date/Time: 02/11/25 13:59 Surgeon: Wade Curran MD Pre Op Diagnosis: post menopausal bleeding Patient Data Age: 84 Gender: F Height: 1.63 m Weight: 113.2 kg Last Vital Signs Temp 36.6 C 02/11/25 12:10 Pulse 80 02/11/25 12:10 Resp 16 02/11/25 12:10 BP 137/86 02/11/25 12:10 Pulse Ox 91 02/11/25 12:10 O2 Del Method Room Air 02/11/25 12:10 Allergies Allergy/AdvReac Type Severity Reaction Status Date / Time No Known Allergies Allergy Verified 02/08/25 13:21 Home Medications ?Medication ?Instructions ?Recorded ?Confirmed ?Type aspirin 81 mg capsule 81 mg PO DAILY 07/01/24 02/08/25 History carvedilol 6.25 mg tablet 6.25 mg PO Q12H 07/01/24 02/08/25 History losartan 50 mg tablet 50 mg PO DAILY 07/01/24 02/08/25 History melatonin 3 mg capsule 3 mg PO HS 07/01/24 02/08/25 History vitamin B complex 1 cap PO DAILY 07/01/24 02/08/25 History vitamin D3 125 mcg (5,000 1 cap PO DAILY 07/01/24 02/08/25 History unit)-vitamin K2 100 mcg capsule lamotrigine 100 mg tablet See Rx Instructions .Route 07/20/24 02/08/25 Rx .COMPLEX #180 tabs paroxetine HCl 30 mg tablet 30 mg PO DAILY #90 tabs 09/13/24 02/08/25 Rx levothyroxine 25 mcg tablet 25 mcg PO DAILY 11/19/24 02/08/25 History rosuvastatin 40 mg tablet 40 mg PO HS #90 tabs 11/26/24 02/08/25 Rx primidone 250 mg tablet 300 mg PO HS 12/30/24 02/08/25 History omeprazole 20 mg capsule,delayed See Rx Instructions .Route 01/05/25 02/08/25 Rx release .COMPLEX #90 caps hydrocodone 5 mg-acetaminophen 325 1 tablet PO Q6H PRN pain #10 tabs 02/11/25 Rx mg tablet Patient hx anesthesia problems: none Family hx anesthesia problems: none Results Review: All pre-operative results and documents have been reviewed as part of the pre-operative evaluation. [facility] Past Medical History Medical History Hypertension Hypothyroidism Essential tremor Social History Social History Smoking packs per day: 0.5 Smoking cigarettes per day: 10.0 Years smoked: 4 Smoking pack-years: 2.00 Smoking status: Former smoker Tobacco type: cigarettes Smoking end date: 03/24/74 Alcohol intake: current Drinks per week: 7 Alcohol use details: WINE Living arrangements: with family Spiritual care concerns: No Anes - Eval Final PreProcedure Day of Procedure 02/11/25 13:59 Patient weight: morbidly obese Heart: regular rate and rhythm and irregular rhythm Lungs: normal air movement Airway: Mallampati scale class III Neurological: alert and oriented Last oral intake: >/= 8 hours ASA classification: III Emergent: no Anesthetic plan: proceed Anesthesia type and monitoring: general GIVS and LMA and standard monitoring Results Review: All pre-operative results and documents have been reviewed as part of the pre-operative evaluation. Informed Consent: The patient's anesthetic plan and its attendant risks and benefits were discussed with the patient/family/POA. Questions were solicited and answers provided to the satisfaction of the patient/family/POA.
[2025-02-11] MEDS: LIDOCAINE 1% LOCAL INJ 10 ML VIAL INFILTRATE (14:24)
--- NOTE | 2025-02-11 14:28 | S_PTH ---
PATIENT: Silvana Hare LOC: [facility] U#:[id number] AGE/SX: 84/F ROOM: RE02/11/[address]: Wade Curran MD : 1940 BED: DIS: 02/11/2025 SPEC #: [id number] RECD: 02/14/25 07:48 STATUS: LISA REQ #: [id number] LOVELY: 02/11/25 14:[address]: Wade Sky DEPT: [facility] Surgical RECD BY: Jessika Azul ENTERED: 02/14/25 07:48 SP TYPE: Surgical OTHR DR: Jose Norton MD Tissues: A - Endometrial Curettings Procedures: Hematoxylin and Eosin Stain Gross and Microscopic Level 4
--- NOTE | 2025-02-11 14:33 | W.PM.PROC2 ---
Procedure Note - Detailed Date of Procedure 02/11/25 Pre-op Diagnosis post menopausal bleeding Post-op Diagnosis Same Procedure Performed Hysteroscopy/dilatation curettage/polypectomy Surgeon Wade Curran MD Anesthesia MAC and Local Indications 84-year-old female postmenopausal bleeding Findings Uterus had a small polyp at the entrance Description of Procedure Patient was prepped draped in normal sterile fashion placed in the dorsal lithotomy position. Under excellent IV sedation weighted speculum placed in posterior fornix vagina anterior lip of cervix grasped with single tooth tenaculum. 2.5cc 1% xylocaine anesthesia placed at 2, 4, 8, 10:00 a.m. of the cervix. Uterus sounded to 6cm. Serial dilatation with fragmented dilators performed followed passes the 5mm visualizing hysteroscope using normal saline as visualizing medium a small endometrial/or endocervical polyp was noted this was removed at the end of the atrial polyp. The uterus scraped over the entire 360? with reversal E no tissue returned instruments withdrawn patient went recovery in satisfactory condition. All sponge, needle, instrument counts were correct. There were no immediate complications Estimated Blood Loss 5 Drains No Packing No Pathology Yes Complications No immediate complications Condition Stable Disposition PACU
[2025-02-11 14:34] VITALS: BP 130/107; PULSE 74; RESP 18; O2SAT 97
[2025-02-11 15:04] VITALS: BP 170/81
[2025-02-11 15:40] VITALS: BP 160/88; PULSE 65
== END 2025-02-11 15:41 | disposition home or self-care (01) ==
PROVIDERS: PCP Family Medicine; Visit Provider Obstetrics & Gynecology
PROC: 0U5B8ZZ Destruction of Endometrium, Via Natural or Artificial Opening Endoscopic (ICD-10-PCS; CPT 58563; principal; 2025-02-11 15:30)
DX: N95.0 Postmenopausal bleeding (principal); N84.0 Polyp of corpus uteri; E66.01 Morbid (severe) obesity due to excess calories; Z68.41 Body mass index [BMI] 40.0-44.9, adult
CPT/HCPCS: 58558; 88305; A9270; J2003; J2704; J3010; J7120